=== PATIENT | male | born 1965 | race Caucasian/White ===

== ENCOUNTER 2019-03-16 13:34 | Inpatient (IN) | payer OTHER, SELFPAY ==
[2019-03-16] VITALS (7 sets, daily range): BP systolic 120–154; BP diastolic 80–92; PULSE 69–97; RESP 16–20; TEMP 36.6; O2SAT 93–96; BMI 40.6; BMI 40.4
--- NOTE | 2019-03-16 13:37 | ED_ITS ---
Entered by Joana Morales, acting as scribe for HPI - Abdominal Pain General: Chief Complaint: Abdominal Pain Stated Complaint: HALLUCINATIONS/ ABDOMINAL PAIN Time Seen by Provider: 03/16/19 13:37 Source: patient Mode of arrival: EMS Limitations: no limitations History of Present Illness: HPI narrative: 53 yo Male presents to ED with complaint of abdominal pain and hallucinations. Pt states he has been having hallucinations and nightmares and his psychologist told him to come to the ED. Pt states that he has been having hallucinations for about 2 weeks. Pt states that he has also had abdominal pains with clotted red blood in his stools for about 1 week. Pt states that he has had scopes done in the past with no diagnosis. Pt states he was diagnosed with diverticulitis about 30 years ago but during his recent scopes nothing was found. MD elicited complaint: abdominal pain Onset (ago): week(s) (2) Pain Consistency: constant Location: Diffuse Severity: severe Pain scale (0-10): 9 Quality: sharp Associated Symptoms: Reports hematochezia; Denies chills, coffee ground emesis, constipation, GI cramping, diarrhea, dysuria, fever(s), hematuria, hematemesis, melena, nausea, syncope and vomiting Review of Systems General: Reports: other (negative unless marked) Const: Denies: fever or chills Eyes: Denies: change in vision or blurry vision ENMT: Denies: throat pain, painful swallowing, hoarseness, ear pain, ear dis charge, Change in hearing or nasal discharge Card: Denies: syncope Resp: Denies: shortness of breath, productive cough, non-productive cough, wheezing, coughing up blood or chest congestion GI: Reports: abdominal pain and blood in stool; Denies: nausea, vomiting, vomiting blood, coffee grounds in vomit, diarrhea, constipation, cramping or black tarry stool : Denies: painful urination or blood in urine Musc: Denies: neck pain, back pain, extremity pain, extremity swelling, joint pain, joint swelling, joint warmth or joint stiffness Skin/Breast: Denies: rash, skin tenderness or yellow skin Neuro: Denies: headache, numbness in extremities, weakness in extremities, changes in sensation, lack of coordination, difficulty walking, dizziness, vertigo or confusion Endo: Denies: excessive thirst, tired all the time, cold intolerance, excessive sweating, flushing or hot flashes Cornelius/Lymph: Denies: easy bruising, easy bleeding, petechiae or enlarged lymph nodes All/Imm: Denies: hives, throat swelling, tongue swelling, facial swelling or acute wheezing PFSH ED PFSH: Statuses (acute, chronic, etc) shown below reflect problem list status as previously entered and may not be historically accurate Medical History (Updated 03/16/19 @ 17:00 by Anne-Marie Colmenares) Diabetes (Acute) Diastolic heart failure (Acute) Essential (primary) hypertension (Acute) Hypothyroidism (Acute) Internal hemorrhoids (Acute) Surgical History (Updated 03/16/19 @ 13:56 by Joana Morales) H/O neck surgery (Acute) S/P appendectomy (Acute) S/P cholecystectomy (Acute) S/P hernia repair (Acute) Family History (Updated 03/13/19 @ 11:36 by Daylin Selby LPN) Other CAD (coronary artery disease) Diabetes Social History (Updated 03/13/19 @ 11:21 by Daylin Selby LPN) Smoking and tobacco status: never smoked Alcohol intake: current Alcohol intake frequency: few times a week Alcohol type: beer Household members: spouse Marital status: Physical Exam Const: COMMON NORMALS: no apparent distress, oriented x3, no limitations, healthy appearing and well nourished EXAM LIMITATIONS: no altered mental status GENERAL APPEARANCE: cooperative, well kempt and well developed ORIENTATION/CONSCIOUSNESS: Yes awake HENMT: COMMON NORMALS: normocephalic, head/scalp atraumatic, hearing grossly normal bilaterally, external ears normal, EAC's normal, external nose normal and moist oral mucous membranes HEAD & SCALP: normal to inspection, normocephalic and atraumatic FACE & SINUS: normal facial exam and face symmetric NOSE: external nose normal and nares normal EXTERNAL EAR: Yes external ears normal EXTERNAL AUDITORY CANAL: EAC's normal MOUTH: oral and palatal mucosa normal and tongue normal Eye: COMMON NORMALS: PERRL, EOMs intact bilaterally, conjunctivae normal and no scleral icterus GENERAL EYE: normal appearance of both eyes and normal light reflex CONJUNCTIVA: Yes conjunctivae normal SCLERA: sclerae normal CORNEA: Yes corneas normal PUPIL: Yes PERRL DIRECT OPHTHALMOSCOPY: Yes normal light reflex Neck/C-Spine: COMMON NORMALS: full ROM, no lymphadenopathy, supple, no meningeal signs and no JVD GENERAL: Yes normal visual inspection and Yes trachea midline CERVICAL SPINE: Yes cervical ROM normal Chest: COMMONS NORMALS: inspection of chest normal and palpation of chest normal Resp: COMMON NORMALS: normal respiratory effort, no retractions, no use of accessory muscles and clear to auscultation bilaterally EFFORT & INSPECTION: Yes able to speak in complete sentences AUSCULTATION: clear to auscultation bilaterally Cardio: COMMON NORMALS: no JVD, regular rate, regular rhythm, S1 normal heart sound, S2 normal heart sound, no gallops, no clicks, no murmurs and no rub JUGULAR VENOUS DISTENTION: no JVD RATE: regular rate RHYTHM: regular rhythm HEART SOUNDS: S1 normal and S2 normal GI: COMMON NORMALS: soft to palpation, non-tender, no hepatosplenomegaly and no masses INSPECTION: Yes normal to inspection PALPATION: Yes soft and Yes no hepatosplenomegaly RECTAL EXAM: Yes visual inspection normal, Yes normal sphincter tone, Yes prostate normal and Yes heme negative stool : COMMON NORMALS: Yes no CVA tenderness BLADDER/KIDNEY EXAM: Yes no CVA tenderness Back/Pelvis: COMMON NORMALS: no CVA tenderness, thoracic and lumbar spine normal to inspection, no thoracic nor lumbar tenderness and thoraco-lumbar ROM normal Extremity: COMMON NORMALS: normal to inspection, full ROM, normal capillary refill, no joint enlargement, no clubbing, cyanosis or edema and no calf tenderness Neuro: COMMON NORMALS: oriented x3, CN's II-XII intact bilaterally, moves all extremities, no focal motor deficits and no sensory deficits noted MENINGEAL SIGNS: Yes no meningeal signs Psych: COMMON NORMALS: mental status grossly normal, thought process normal, cooperative, affect normal, speech normal and activity/motor behavior normal APPEARANCE: Yes well kempt SPEECH: Yes normal speech THOUGHT PROCESS: normal thought process Skin: COMMON NORMALS: no rashes or lesions noted, skin turgor normal, no jaundice, no petechiae and no mottling GENERAL SKIN EXAM: no rashes or lesions noted and turgor normal Procedures Intubation Mg Given: 20 Mg Given: 200 Course Vital Signs: Vital signs: Vital Signs Temperature 97.8 F 03/16/19 13:37 Pulse Rate 83 03/16/19 14:59 Respiratory Rate 16 03/16/19 16:00 Blood Pressure 140/87 03/16/19 14:59 Pulse Oximetry 96 03/16/19 13:37 MDM - Abdominal Pain MDM Narrative: Medical decision making narrative: Ben comes in complaining of hallucinations described as seeing things move on the wall and seeing things that are not there. As far as work-up for rectal bleeding everything is negative. He is not orthostatic, he is not been hypotensive. He has had no syncopal spells. He has no chest pain or shortness of breath. The patient's guaiac is negative here and his stool is normal color without any evidence of bleeding. His CT scan is unremarkable. It is possible that this is a hallucination or delusion. I reviewed the case in full with Dr. Larios she is agreeable to admit the patient for further psychiatric evaluation. He understands that the patient's complaints could be very serious as far as his rectal bleeding and he will monitor this closely and if necessary involve surgery and medicine as necessary. Lab Data: Labs: Lab Results 03/16/19 03/16/19 03/16/19 Range/Units 12:58 12:58 12:58 WBC 9.7 (4.0-10.0) 10^3/ uL RBC 5.46 H (4.1-5.3) 10^6/u L Hgb 15.4 (11.7-16.6) g/dL Hct 48.9 (42.0-52.0) % MCV 89.6 (80-94) fL MCH 28.2 (28.0-34.0) pg MCHC 31.5 (30.0-36.0) g/dL RDW 12.7 (12.1-15.1) % Plt Count 407 H (130-400) 10^3/c mm MPV 11.9 H (7.4-10.4) fL Neut % (Auto) 62.7 % Lymph % (Auto) 22.2 % [place] % (Auto) 11.0 % Eos % (Auto) 3.1 % Baso % (Auto) 0.6 % Neut # (Auto) 6.1 (1.8-7.7) 10^3/u L Lymph # (Auto) 2.2 (0.8-4.8) 10^3/u L [place] # (Auto) 1.1 H (0.2-0.9) 10^3/u L Eos # (Auto) 0.3 (0.0-0.8) 10^3/u L Baso # (Auto) 0.1 (0.0-0.1) 10^3/u L Nucleated RBC % (a uto) 0 % Nucleated RBCs # 0.0 /100WBC PT 13.20 (10.5-13.3) SECO NDS INR 0.97 (0.8-1.2) Specimen Type Sample Site ABG pH (7.35-7.45) ABG pCO2 (35-45) mmHg ABG pO2 (80.0-100.0) mmH g ABG HCO3 (22-26) mmol/L ABG Base Excess (-2.0-2.0) mmol/ L Moy Test Hematocrit (42-52) % FiO2 % Plug Grower ID Sodium 135 L (136-145) mmol/L Potassium 4.5 (3.5-5.1) mmol/L Chloride 93 L (98-107) mmol/L Carbon Dioxide 27 (22-29) mmol/L Anion Gap 19.5 H (5-19) BUN 16 (6-20) mg/dL Creatinine 1.2 (0.7-1.2) mg/dL GFR Calculation 63.3 L (90-130) mL/min Glucose 197 H (74-109) mg/dL Lactic Acid (0.5-2.2) mmol/L Calcium 10.6 H (8.6-10.0) mg/Dl Magnesium 2.2 (1.7-2.3) mg/dL Total Bilirubin 0.4 (0.15-1.2) mg/dL AST 30 (0-40) U/L ALT 39 (0-41) U/L Alkaline Phosphata se 73 (40-130) IU/L Ammonia (16-60) umol/L Total Protein 8.6 (6.6-8.7) g/dL Albumin 5.5 H (3.5-5.2) g/dL Globulin 3.1 (1.3-4.6) g/dL Ethyl Alcohol (0-10) mg/dL Blood Type Antibody Screen 03/16/19 03/16/19 03/16/19 Range/Units 12:58 13:50 13:52 WBC (4.0-10.0) 10^3/ uL RBC (4.1-5.3) 10^6/u L Hgb (11.7-16.6) g/dL Hct (42.0-52.0) % MCV (80-94) fL MCH (28.0-34.0) pg MCHC (30.0-36.0) g/dL RDW (12.1-15.1) % Plt Count (130-400) 10^3/c mm MPV (7.4-10.4) fL Neut % (Auto) % Lymph % (Auto) % [place] % (Auto) % Eos % (Auto) % Baso % (Auto) % Neut # (Auto) (1.8-7.7) 10^3/u L Lymph # (Auto) (0.8-4.8) 10^3/u L [place] # (Auto) (0.2-0.9) 10^3/u L Eos # (Auto) (0.0-0.8) 10^3/u L Baso # (Auto) (0.0-0.1) 10^3/u L Nucleated RBC % (a uto) % Nucleated RBCs # /100WBC PT (10.5-13.3) SECO NDS INR (0.8-1.2) Specimen Type Arterial Sample Site Radial, left ABG pH 7.39 (7.35-7.45) ABG pCO2 45.4 H (35-45) mmHg ABG pO2 74.8 L (80.0-100.0) mmH g ABG HCO3 27.1 H (22-26) mmol/L ABG Base Excess 1.5 (-2.0-2.0) mmol/ L Moy Test Pos Hematocrit 45.5 (42-52) % FiO2 21.0 % Plug Grower ID ed Sodium (136-145) mmol/L Potassium (3.5-5.1) mmol/L Chloride (98-107) mmol/L Carbon Dioxide (22-29) mmol/L Anion Gap (5-19) BUN (6-20) mg/dL Creatinine (0.7-1.2) mg/dL GFR Calculation (90-130) mL/min Glucose (74-109) mg/dL Lactic Acid (0.5-2.2) mmol/L Calcium (8.6-10.0) mg/Dl Magnesium (1.7-2.3) mg/dL Total Bilirubin (0.15-1.2) mg/dL AST (0-40) U/L ALT (0-41) U/L Alkaline Phosphata se (40-130) IU/L Ammonia (16-60) umol/L Total Protein (6.6-8.7) g/dL Albumin (3.5-5.2) g/dL Globulin (1.3-4.6) g/dL Ethyl Alcohol < 10 (0-10) mg/dL Blood Type O Positive Antibody Screen Negative 03/16/19 03/16/19 Range/Units 13:52 13:52 WBC (4.0-10.0) 10^3/ uL RBC (4.1-5.3) 10^6/u L Hgb (11.7-16.6) g/dL Hct (42.0-52.0) % MCV (80-94) fL MCH (28.0-34.0) pg MCHC (30.0-36.0) g/dL RDW (12.1-15.1) % Plt Count (130-400) 10^3/c mm MPV (7.4-10.4) fL Neut % (Auto) % Lymph % (Auto) % [place] % (Auto) % Eos % (Auto) % Baso % (Auto) % Neut # (Auto) (1.8-7.7) 10^3/u L Lymph # (Auto) (0.8-4.8) 10^3/u L [place] # (Auto) (0.2-0.9) 10^3/u L Eos # (Auto) (0.0-0.8) 10^3/u L Baso # (Auto) (0.0-0.1) 10^3/u L Nucleated RBC % (a uto) % Nucleated RBCs # /100WBC PT (10.5-13.3) SECO NDS INR (0.8-1.2) Specimen Type Sample Site ABG pH (7.35-7.45) ABG pCO2 (35-45) mmHg ABG pO2 (80.0-100.0) mmH g ABG HCO3 (22-26) mmol/L ABG Base Excess (-2.0-2.0) mmol/ L Moy Test Hematocrit (42-52) % FiO2 % Plug Grower ID Sodium (136-145) mmol/L Potassium (3.5-5.1) mmol/L Chloride (98-107) mmol/L Carbon Dioxide (22-29) mmol/L Anion Gap (5-19) BUN (6-20) mg/dL Creatinine (0.7-1.2) mg/dL GFR Calculation (90-130) mL/min Glucose (74-109) mg/dL Lactic Acid 2.4 H (0.5-2.2) mmol/L Calcium (8.6-10.0) mg/Dl Magnesium (1.7-2.3) mg/dL Total Bilirubin (0.15-1.2) mg/dL AST (0-40) U/L ALT (0-41) U/L Alkaline Phosphata se (40-130) IU/L Ammonia 78 H (16-60) umol/L Total Protein (6.6-8.7) g/dL Albumin (3.5-5.2) g/dL Globulin (1.3-4.6) g/dL Ethyl Alcohol (0-10) mg/dL Blood Type Antibody Screen Imaging Data ^: CXR: Radiologist's impression: [address] [address] XRay Report Signed Patient: Ben Nielsen R#: [id number] : 1965Acct:[id number] Age/Sex: 53 / MADM Date: 03/16/19 Loc: ER Attending Dr: Ordering Physician: Anne-Marie Colmenares DO Date of Service: 03/16/19 Procedure(s): XR chest 1V portable [id number] Accession Number(s): [id number] Report Number: [id number] WS: [id number] Portable AP upright chest, 03/16/2019 Clinical Data: cough Comparison: Verbal chest, 04/27/2018. Findings: No nodules, masses or effusions are seen. The heart is normal. The pulmonary vascularity is not increased. No pneumonia or pneumothorax is seen. XR/XR chest 1V portable [id number] Impression: Negative chest. Dictated By:Alison Schneider MD Signed By:Alison Schneider MDSigned Date/Time:03/16/191402 DD/ 01 CT Abd/Pel: Radiologist's impression: [facility] [address] [place] [address] CT Scan Report Signed Patient: Ben Nielsen HMR#: [id number] : 1965Acct:[id number] Age/Sex: 53 / MADM Date: 03/16/19 Loc: ER Attending Dr: Ordering Physician: Anne-Marie Colmenares DO Date of Service: 03/16/19 Procedure(s): CT abdomen pelvis w con* [id number] Accession Number(s): [id number] Report Number: [id number] WS: [id number] CT scan of the abdomen and pelvis without Oral and with IV contrast. Additional two-dimensional coronal and sagittal reconstruction was performed. 03/16/2019 Clinical Data: Abdominal Pain Comparison: CT abdomen and pelvis, 02/07/2018. DLP: 1982.[address] scans at [facility] use at least one of these dose optim ization techniques: automated exposure control; mA and/or kV adjustment per patient size (includes targeted exams where dose is matched to clinical indication); or iterative reconstruction. Findings: The lower lungs show no nodules, masses or effusions. The liver, spleen, adrenal glands and pancreas are normal. There are clips in the gallbladder fossa from a cholecystectomy. The kidneys show equal bilateral contrast excretion with no cyst or masses. The abdominal aorta is normal in size. No appendicitis or diverticulitis is seen. No abscess, adenopathy, ascites, mass, obstruction or free air is seen. The stomach, small bowel and colon are not remarkable.. The bladder is unremarkable. No inguinal hernia is seen. There is calcification in the prostate. The bones of the lower thorax, lumbar spine, pelvis, and hips show only moderate osteoarthritic change of the lower lumbar vertebral bodies.. CT/CT abdomen pelvis w con* [id number] Impression: Negative for acute intra-abdominal or pelvic abnormalities. Dictated By:Alison Schneider MD Signed By:Alison Schneiderigned Date/Time:03/16/191451 DD/ 1447 Discharge Plan Discharge Patient Disposition: Placed in Observation Clinical Impression: Hallucinations, Bright red rectal bleeding Condition: Stable Prescriptions: No Action metformin 500 mg tablet extended release 24 hr 500 mg PO DAILY RF: 0 cephalexin 500 mg capsule 500 mg PO BID RF: 0 fenofibrate nanocrystallized [Tricor] 145 mg tablet 145 mg PO DAILY RF: 0 levothyroxine 50 mcg capsule 50 mcg PO ONCE RF: 0 losartan 50 mg tablet 50 mg PO DAILY RF: 0 metoprolol tartrate 25 mg tablet 25 mg PO BID RF: 0 quetiapine 50 mg tablet 50 mg PO BEDTIME RF: 0 duloxetine 60 mg capsule,delayed release(DR/EC) 120 mg PO DAILY RF: 0 gabapentin 600 mg tablet 600 mg PO TID RF: 0 nitroglycerin [Nitrostat] 0.4 mg tablet, sublingual 0.4 mg SUBLINGUAL Q5M PRN (Reason: Chest Pain) RF: 0 aspirin 81 mg tablet,delayed release (DR/EC) 162 mg PO BEDTIME RF: 0 buspirone 10 mg tablet 10 mg PO TID RF: 0 melatonin 3 mg Tablet 3 mg PO BEDTIME RF: 0 Lyrica 150 mg Capsule 150 mg PO BID RF: 0 Referrals: Qi Muhammad DO [Primary Care Provider] - Coding Level of Care Code ED Strategic Partner Development Manager for Chg Fwd Exam Problem Focused The documentation recorded by the Andrew sequeira Carmen, accurately reflects the service I personally performed and the decisions made by Dedra soto Eli N Mar 16, 2019 13:34
--- NOTE | 2019-03-16 13:43 | XR_ITS ---
WS: [id number] Portable AP upright chest, 03/16/2019 Clinical Data: cough Comparison: Verbal chest, 04/27/2018. Findings: No nodules, masses or effusions are seen. The heart is normal. The pulmonary vascularity is not increased. No pneumonia or pneumothorax is seen. XR/XR chest 1V portable [id number] Impression: Negative chest.
--- NOTE | 2019-03-16 13:43 | CT_ITS ---
WS: [id number] CT scan of the abdomen and pelvis without Oral and with IV contrast. Additional two-dimensional claudy nal and sagittal reconstruction was performed. 03/16/2019 Clinical Data: Abdominal Pain Comparison: CT abdomen and pelvis, 02/07/2018. DLP: 1982.[address] scans at [facility] use at least one of these dose optimization techniques: automat ed exposure control; mA and/or kV adjustment per patient size (includes targeted exams where dose is matched to clinical indication); or iterative reconstruction. Findings: The lower lungs show no nodules, masses or effusions. The liver, spleen, adrenal glands and pancreas are normal. There are clips in the gallbladder fossa f rom a cholecystectomy. The kidneys show equal bilateral contrast excretion with no cyst or masses. The abdominal aorta is normal in size. No appendicitis or diverticulitis is seen. No abscess, adenopathy, ascites, mass, obstruction or free air is seen. The stomach, small bowel and colon are not remarkable.. The bladder is unremarkable. No inguinal hernia is seen. There is calcification in the prostate. The bones of the lower thorax, lumbar spine, pelvis, and hips show only moderate osteoarthritic sandhu e of the lower lumbar vertebral bodies.. CT/CT abdomen pelvis w con* [id number] Impression: Negative for acute intra-abdominal or pelvic abnormalities.
--- NOTE | 2019-03-16 13:48 | PC.NURSE ---
Patient additionally has c/o hallucinations. He states he is not hearing things or seeing things while awake, rather he states anytime he naps or sleeps he is having what he describes as nightmares. Patient states he called his psychologist and told him of the episodes and was advised to come to the ER for evaluation.
[2019-03-16 13:49] LABS: Basophils # 0.1 10^3/uL (0.0-0.1); Basophils % 0.6 %; Eosinophils # 0.3 10^3/uL (0.0-0.8); Eosinophils % 3.1 %; Hematocrit 48.9 % (42.0-52.0); Hemoglobin 15.4 g/dL (11.7-16.6); Lymphocytes # 2.2 10^3/uL (0.8-4.8); Lymphocytes % 22.2 %; Mean Corpuscular HGB Conc 31.5 g/dL (30.0-36.0); Mean Corpuscular Hemoglobin 28.2 pg (28.0-34.0); Mean Corpuscular Volume 89.6 fL (80-94); Mean Platelet Volume 11.9 fL (7.4-10.4); Monocytes # 1.1 10^3/uL (0.2-0.9); Neutrophils # 6.1 10^3/uL (1.8-7.7); Neutrophils % 62.7 %; Nucleated Red Blood Cells % 0 %; Platelet Count 407 10^3/cmm (130-400); Red Blood Count 5.46 10^6/uL (4.1-5.3); Red Cell Distribution Width 12.7 % (12.1-15.1); White Blood Count 9.7 10^3/uL (4.0-10.0)
[2019-03-16 13:58] LABS: INR 0.97 (0.8-1.2)
[2019-03-16 14:02] LABS: ABG PCO2 45.4 mmHg (35-45); ABG PH Result 7.39 (7.35-7.45); Arterial Blood Gas Hematocrit 45.5 % (42-52); Base Excess ABG 1.5 mmol/L (-2.0-2.0); Blood Gas Allen Test Pos; Blood Gas Sample Site Radial, left; Blood Gas Sample Type Arterial; HCO3 ABG 27.1 mmol/L (22-26); PO2 ABG 74.8 mmHg (80.0-100.0)
[2019-03-16] MEDS: ondansetron 2 mg/ML SDV 2 mL 4 MG IVP (14:04)
[2019-03-16 14:05] LABS: Alanine Aminotransferase 39 U/L (0-41); Alkaline Phosphatase 73 IU/L (40-130); Anion Gap 19.5 (5-19); Aspartate Amino Transferase 30 U/L (0-40); Blood Urea Nitrogen 16 mg/dL (6-20); Calcium 10.6 mg/Dl (8.6-10.0); Carbon Dioxide 27 mmol/L (22-29); Chloride 93 mmol/L (98-107); Glomerular Filtration Rate 63.3 mL/min (90-130); Glucose 197 mg/dL (74-109); Magnesium 2.2 mg/dL (1.7-2.3); Potassium 4.5 mmol/L (3.5-5.1); Sodium 135 mmol/L (136-145); Total Bilirubin 0.4 mg/dL (0.15-1.2); Total Protein 8.6 g/dL (6.6-8.7)
[2019-03-16] MEDS: morphine 4 mg/mL SDV 1 mL IVP (14:05)
[2019-03-16 14:30] LABS: Lactic Sepsis W/Reflex 2.4 mmol/L (0.5-2.2)
[2019-03-16] MEDS: iohexol 300 mg/mL 100 mL Btl IV (14:39)
[2019-03-16 14:47] LABS: Albumin Level 5.5 g/dL (3.5-5.2); Globulin 3.1 g/dL (1.3-4.6)
[2019-03-16 14:52] LABS: Ammonia 78 umol/L (16-60)
[2019-03-16 15:44] LABS: Reflex Lactate Order Y
[2019-03-16 15:49] LABS: Alcohol Level < 10 mg/dL (0-10)
[2019-03-16] MEDS: HYDROmorphone 1 mg/mL INJ 1 mL IVP (16:00)
[2019-03-16] MEDS: sodium chloride 0.9% 2,000 ML 999 ML IV (16:57)
[2019-03-17 00:30] LABS: Urine Appearance Clear (CLEAR); Urine Color Yellow (Yellow); pH Urine 5 (5-7)
[2019-03-17 00:31] LABS: Bilirubin Urine Neg (NEGATIVE); Blood Urine Neg (Negative); Glucose Urine UA Norm (Normal); Ketones Urine Negative (Negative); Leukocyte Esterase Urine Negative (Negative); Nitrate Urine Negative (Negative); Protein Urine Trace (Negative); Urobilinogen Urine Norm (Negative)
[2019-03-17 00:32] LABS: Bacteria Urine TRACE; RBC Urine 0-4 /hpf (0-2); Sperm Urine 1+; Squamous Epithelial Cell Urine 0-4 (0-5)
[2019-03-17 00:33] LABS: Add Urine Culture? No
[2019-03-17] MEDS: trazodone 50 mg Tablet PO (01:05)
--- NOTE | 2019-03-17 01:19 | PC.NURSE ---
Nurse Note: Patient laying in bed awake. Breathing equal and unlabored. States he is not able to sleep. Requested something for sleep. Trazodone 50 mg po given for sleep. Will reassess patient .
[2019-03-17 01:56] LABS: Amphetamines Screen Urine Negative (Negative); Barbiturates Screen Urine Negative (Negative); Benzodiazepines Screen Urine Negative (Negative); Cocaine Screen Urine Negative (Negative); PCP Screen Urine Negative (Negative); THC Screen Urine Negative (Negative)
[2019-03-17 06:00] VITALS: BP 166/77; PULSE 90; RESP 21; TEMP 36.6; O2SAT 94
--- NOTE | 2019-03-17 12:33 | PM.SDS ---
Short Stay Summary Providers Date of Admit/Discharge: 03/17/19 Attending Provider: Franklin Larios MD Primary Care Provider: Qi Muhammad Chief Complaint: HALLUCINATIONS/ ABDOMINAL PAIN HPI History of Present Illness Ben Nielsen is a 53 year old male who presents with a fairly convoluted story of how he got to this point. But gist of it is that he had an accident about 4 years ago. He had multiple surgeries to correct it. Along with some other psychosocial stressors he started to have depression and received treatment. He reports that around 2017 or 18 he started getting psychiatric care. He denies any inpatient hospitalizations. Patient denies any suicide attempts. He reports that there've been times as the medications have been added in taken away especially for his pain and/or the recent change with his Neurontin when the Lyrica and back medications for pain that have been given in taken away. He reportedly came here hoping to get some help with that somehow he ended up on the psychiatric unit. There were reports of hallucinations but those were fairly specific to going to sleep during this time where he has been struggling with sleep. We discussed hypnagogic hallucinations/rem intrusion as a likely culprit. He was not on a 96 hour hold. He requested to be discharged. We talked to his nurse practitioner at the [facility] and discussed the risks benefits and alternatives of allowing him to leave and she agreed that she did not feel imminent risk was present with him. Here Psychiatric history: As above. Substance abuse history: Reports he has been not smoking for about a month and a body cast shoe prior to the year was normally takes in 3 days and he has not had any tobacco since. He hasn't had alcohol for a long time and has never mess with any illegal drugs. He reports that he is never been to rehabilitation. And that he's never had a DUI. Family history: He denies any mental health or addiction issues or suicide attempts or completions in his family. Developmental history. He reports that he was a product of a normal and delivery The walk and talk about his developmental milestones on time. We will school he denied speech therapy, learning support, emotional support or special education classes. Psychosocial history: He is dullness of his parents 3 children. He reports his childhood was fine and he denied any emotional physical or sexual abuse. He graduated high school but had no additional training. He did have a [employer] certificate one point. Endorses being heterosexual and is largely simple 20 years. He then twice and once. He has 2 children 25-year-old daughter and 20-year-old daughter. Never been and doesn't endorse any religiously system. He reports his on his diabetes of her work was 12 years and he lives in a house with his . Legal history: He denies any significant legal history. Review of Systems Psych: Reports: other (This is an obese white male with adequate dress grooming and eye contact. No abnormal movements. Cooperative with exam in no acute distress. Speech was normal rate and volume. Mood described as fine affect congruent. Thought process organized. Thought content: Patient denied any suicidal or homicidal ideations, no delusions or border noted, he denied any auditory or visual sedation. Attention and concentration were intact memory was unreliable but now more formally tested. He is alert and oriented ?3. Insight and judgment are limited.) Home Meds/Allergies Home Medications and Allergies Home Medications Medication Instructions Recorded Confirmed Type aspirin 81 mg tablet,delayed 162 mg PO BEDTIME 03/13/19 03/16/19 History release cephalexin 500 mg capsule 500 mg PO BID 03/13/19 03/16/19 History duloxetine 60 mg capsule,delayed 120 mg PO DAILY cap 03/13/19 03/16/19 History release fenofibrate nanocrystallized 145 145 mg PO DAILY 03/13/19 03/16/19 History mg tablet gabapentin 600 mg tablet 600 mg PO TID 03/13/19 03/16/19 History levothyroxine 50 mcg capsule 50 mcg PO ONCE 03/13/19 03/16/19 History losartan 50 mg tablet 50 mg PO DAILY tab 03/13/19 03/16/19 History metformin 500 mg tablet,extended 500 mg PO DAILY tab 03/13/19 03/16/19 History release 24 hr metoprolol tartrate 25 mg tablet 25 mg PO BID 03/13/19 03/16/19 History nitroglycerin 0.4 mg sublingual 0.4 mg SUBLINGUAL Q5M PRN 03/13/19 03/16/19 History tablet quetiapine 50 mg tablet 50 mg PO BEDTIME tab 03/13/19 03/16/19 History buspirone 10 mg tablet 10 mg PO TID 03/16/19 03/16/19 History melatonin 3 mg PO BEDTIME 03/16/19 03/16/19 History pregabalin [Lyrica] 150 mg PO BID 03/16/19 03/16/19 History Allergies Allergy/AdvReac Type Severity Reaction Status Date / Time No Known Allergies Allergy Verified 03/16/19 13:42 PFSH Acute PFSH: Statuses (acute, chronic, etc) shown below reflect problem list status as previously entered and may not be historically accurate Medical History (Updated 03/17/19 @ 17:18 by Franklin Larios MD) Diabetes (Acute) Diastolic heart failure (Acute) Essential (primary) hypertension (Acute) Hypothyroidism (Acute) Internal hemorrhoids (Acute) Surgical History (Updated 03/16/19 @ 13:56 by Joana Morales) H/O neck surgery (Acute) S/P appendectomy (Acute) S/P cholecystectomy (Acute) S/P hernia repair (Acute) Family History (Updated 03/13/19 @ 11:36 by Daylin Selby LPN) Other CAD (coronary artery disease) Diabetes Social History (Updated 03/13/19 @ 11:21 by Daylin Selby LPN) Smoking and tobacco status: never smoked Alcohol intake: current Alcohol intake frequency: few times a week Alcohol type: beer Household members: spouse Marital status: Vitals/I&O/Wt Last Vital Signs Temp 97.9 F 03/17/19 06:00 Pulse 90 03/17/19 06:00 Resp 21 H 03/17/19 06:00 BP 166/77 03/17/19 06:00 Pulse Ox 94 03/17/19 06:00 03/16/19 03/17/19 03/17/19 22:59 06:59 14:59 Intake Total 1999 Balance 1999 Weight last 48 hrs Weight 124.284 kg Weight 124.738 kg Hospital Course Admission Diagnoses: Hallucinations and depression and medical comorbidities. Hospital Course: Ben presented to the emergency room reporting hallucinations and so he was admitted to the neuro psych unit after a thorough medical workup for rectal bleeding. He quickly acclimated to the individual, group and milieu therapies provided. Now he was not interested in participating in treatment. We consulted his outpatient treatment team given that he was not on a 96 hour hold and he was discharged fairly quickly. During the hospitalization he had routine laboratory studies which were within normal limits except for a few outliers mostly seen in this document. Additionally routine medical examination which was within normal limits and revealed no new acute processes. At the time of evaluation he was absolutely the infant denied any significant psychiatric concern that he wanted us to investigate. We discussed the hallucinations and they appear to more likely represent a sleep phenomenon. Follow-up for this was discussed with his provider. Otherwise he had no investment in treatment, was evaluated and noted to be absent lethality so he was allowed to leave against medical recommendations. SSS Data Data Completed and Pending: Completed Studies During Hospitalization Category Date Time Status CT abdomen pelvis w con* [id number] Urge nt Cat Scan 03/16/19 13:43 Completed XR chest 1V [place] ble [id number] Stat Exams 03/16/19 13:43 Completed Pending at discharge Category Date Time Status Arterial Blood Ga s W/O Coox Routine Lab 03/16/19 13:50 Results Diagnoses at Discharge Discharge Diagnosis (1) Adjustment disorder with mixed disturbance of emotions and conduct: Status: Acute Discharge Plan Discharge Patient Disposition: Home, Self-Care Condition: Stable Prescriptions: Continued metformin 500 mg tablet extended release 24 hr 500 mg PO DAILY RF: 0 cephalexin 500 mg capsule 500 mg PO BID RF: 0 fenofibrate nanocrystallized [Tricor] 145 mg tablet 145 mg PO DAILY RF: 0 levothyroxine 50 mcg capsule 50 mcg PO ONCE RF: 0 losartan 50 mg tablet 50 mg PO DAILY RF: 0 metoprolol tartrate 25 mg tablet 25 mg PO BID RF: 0 quetiapine 50 mg tablet 50 mg PO BEDTIME RF: 0 duloxetine 60 mg capsule,delayed release(DR/EC) 120 mg PO DAILY RF: 0 gabapentin 600 mg tablet 600 mg PO TID RF: 0 nitroglycerin [Nitrostat] 0.4 mg tablet, sublingual 0.4 mg SUBLINGUAL Q5M PRN (Reason: Chest Pain) RF: 0 aspirin 81 mg tablet,delayed release (DR/EC) 162 mg PO BEDTIME RF: 0 buspirone 10 mg tablet 10 mg PO TID RF: 0 melatonin 3 mg Tablet 3 mg PO BEDTIME RF: 0 Lyrica 150 mg Capsule 150 mg PO BID RF: 0 Discharge Orders: Discharge Order (Routine); Ordered 03/17/19 Ordered By: Franklin Larios Referrals: Farhat Lewis MD [Physician] - 03/18/19 1:15 am Qi Muhammad DO [Primary Care Provider] - 03/19/19 1:30 am Gerri Rivera [Staff Physician] - 04/02/19 10:00 am Discharge Diet: Regular Discharge Activity: Resume usual activity Patient Instructions: Rectal Bleeding (DC) Activity Restrictions/Additional Instructions: LEISA # Discharge Date/Time: 03/17/19 17:22 Attestations Medical Necessity Statement*: Inpatient hospitalization is not medically necessary or the clinically appropriate intervention at this time. Patient is appropriate for following up with his outpatient providers who know him better to tease out these nuances about treatment given the absence of imminent risk to himself or others. Time Spent in Patient Care*: greater than 30 min Quality Metrics Clinical Quality Measures: During this hospital stay, did patient experience: None Coding Level of Care Code Acute Residential Building Inspector for Chg Fwd Diagnoses Adjustment disorder with mixed disturbance of emotions and conduct F43.25
[2019-03-17 14:00] VITALS: BP 166/77; PULSE 90; RESP 21; TEMP 36.6; O2SAT 94
[2019-03-17 17:13] VITALS: BP 133/80; PULSE 78; RESP 21; TEMP 36.6; O2SAT 94
[2019-03-18 09:33] LABS: Oxygen Device ROOM AIR
== END 2019-03-17 17:22 | disposition home or self-care (01) | DRG 882 ==
LOC: ER 17:00 → NP 17:32
PROVIDERS: Admitting Provider Psychiatry & Neurology Psychiatry; Emergency Provider Emergency Medicine; Family Provider Family Medicine; PCP Family Medicine; Visit Provider Psychiatry & Neurology Psychiatry
DX: F43.25 Adjustment disorder with mixed disturbance of emotions and conduct (principal); Z79.82 Long term (current) use of aspirin; E11.9 Type 2 diabetes mellitus without complications; Z79.84 Long term (current) use of oral hypoglycemic drugs
CPT/HCPCS: 36415; 36600; 71045; 74177; 80053; 80307; 81001; 82140; 82803; 83605; 83735; 85025; 85610; 86850; 86900; 96374; 99283; J1170; J2270; J2405; J7030; Q9967

== ENCOUNTER → 2019-04-02 09:32 | Outpatient (BNVA) | payer OTHER, SELFPAY | PROVIDERS: Family Provider Family Medicine; PCP Family Medicine; Visit Provider Nurse Practitioner Psychiatric/Mental Health | DX: F45.1 Undifferentiated somatoform disorder (principal); F41.8 Other specified anxiety disorders; F33.1 Major depressive disorder, recurrent, moderate | CPT/HCPCS: 99204 ==

== ENCOUNTER 2019-04-07 18:53 | Observation (INO) | payer OTHER, SELFPAY ==
[2019-04-07] VITALS (8 sets, daily range): BP systolic 145–194; BP diastolic 80–108; PULSE 66–87; RESP 16–23; TEMP 36.9; O2SAT 93–98; BMI 41.5
--- NOTE | 2019-04-07 18:56 | ECG_ITS ---
Measurements Intervals [place] Rate: 78 P: 55 [place]: 153 QRS: 30 QRSD: 84 T: 61 QT: 340 QTc: 387 SINUS RHYTHM WITH SINUS ARRHYTHMIA INTERPRETATION BASED ON A DEFAULT AGE OF 40 YEARS Compared to ECG 04/27/2018 09:49:20 Sinus bradycardia no longer present Electronically Signed On 04-08-2019 18:32:34 SUPERVISOR PLEATING by Farhat Lewis M.D. [email or web address]
[2019-04-07 19:36] LABS: Basophils # 0.1 10^3/uL (0.0-0.1); Basophils % 0.7 %; Eosinophils # 0.5 10^3/uL (0.0-0.8); Eosinophils % 4.7 %; Hematocrit 40.5 % (42.0-52.0); Lymphocytes # 2.4 10^3/uL (0.8-4.8); Lymphocytes % 24.9 %; Mean Corpuscular HGB Conc 32.1 g/dL (30.0-36.0); Mean Corpuscular Hemoglobin 28.3 pg (28.0-34.0); Mean Corpuscular Volume 88.2 fL (80-94); Mean Platelet Volume 11.1 fL (7.4-10.4); Monocytes # 0.9 10^3/uL (0.2-0.9); Monocytes % 9.5 %; Neutrophils # 5.8 10^3/uL (1.8-7.7); Neutrophils % 59.9 %; Nucleated Red Blood Cells % 0 %; Platelet Count 311 10^3/cmm (130-400); Red Blood Count 4.59 10^6/uL (4.1-5.3); Red Cell Distribution Width 12.8 % (12.1-15.1); White Blood Count 9.6 10^3/uL (4.0-10.0)
[2019-04-07 19:50] LABS: Alanine Aminotransferase 36 U/L (0-41); Albumin Level 4.7 g/dL (3.5-5.2); Alkaline Phosphatase 76 IU/L (40-130); Anion Gap 16.7 (5-19); Aspartate Amino Transferase 22 U/L (0-40); Blood Urea Nitrogen 16 mg/dL (6-20); Calcium 10.3 mg/dL (8.5-10.5); Carbon Dioxide 27 mmol/L (22-29); Chloride 96 mmol/L (98-107); Globulin 3.2 g/dL (1.3-4.6); Glomerular Filtration Rate 78.2 mL/min (90-130); Glucose 161 mg/dL (74-109); Potassium 3.7 mmol/L (3.5-5.1); Sodium 136 mmol/L (136-145); Total Bilirubin 0.2 mg/dL (0.15-1.2); Total Protein 7.9 g/dL (6.6-8.7)
[2019-04-07 19:52] LABS: Troponin(5th) Baseline 15 ng/mL (0-15)
--- NOTE | 2019-04-07 20:27 | ED_ITS ---
Entered by Roopa Tiwari, acting as scribe for Anne-Marie Colmenares Zoya Apr 07, 2019 18:53 HPI - Chest Pain General: Chief Complaint: Chest Pain Stated Complaint: CP/TAKEN 2 NITROS TODAY Time Seen by Provider: 04/07/19 20:27 Source: patient Mode of arrival: ambulatory Limitations: no limitations History of Present Illness: HPI narrative: Ben is a 53-year-old male who comes in complaining of chest pain/pressure that radiates up to his left neck. He has associated dizziness which he described as room spinning dizziness. Associated shortness of breath, diaphoresis and nausea but no vomiting. His symptoms will start sporadically at times but also will be made worse by exertion. He denies any diaphoresis or other radiation of his pain other to up to his neck. His dizziness is described as room spinning made worse by movement. He denies any similar symptoms in the past. MD complaint: chest pain Associated symptoms: Reports dyspnea and nausea; Deny abdominal pain, diaphoresis, fever(s), palpitations, syncope or vomiting Review of Systems General: Reports: other (negative unless marked) Const: Denies: fever, chills, body aches, fatigue, malaise or diaphoresis Eyes: Denies: change in vision or blurry vision ENMT: Denies: throat pain, painful swallowing, hoarseness, ear pain, ear discharge, Change in hearing or nasal discharge Card: Reports: chest pain; Denies: palpitations, irregular heart rhythm, syncope, pre-syncope, shortness of breath on exertion or shortness of breath when lying down Resp: Reports: shortness of breath; Denies: productive cough, non-productive cough, wheezing, coughing up blood or chest congestion GI: Reports: nausea; Denies: abdominal pain, vomiting, vomiting blood, coffee grounds in vomit, diarrhea, constipation, cramping, blood in stool or black tarry stool : Denies: flank pain, difficulty urinating, painful urination, urinary frequency, urinary urgency, decreased urine ouput, urinary incontinence or blood in urine Musc: Denies: joint warmth Skin/Breast: Denies: rash, skin tenderness or yellow skin Neuro: Denies: headache, numbness in extremities, weakness in extremities, c hanges in sensation, lack of coordination, difficulty walking, dizziness, vertigo or confusion Endo: Denies: excessive thirst, tired all the time, cold intolerance, excessive sweating, flushing or hot flashes Cornelius/Lymph: Denies: easy bruising, easy bleeding, petechiae or enlarged lymph nodes All/Imm: Denies: acute wheezing PFSH ED PFSH: Statuses (acute, chronic, etc) shown below reflect problem list status as previously entered and may not be historically accurate Medical History Anxiety with somatic features (Acute) Chronic neck pain (Acute) Diabetes (Acute) Diastolic heart failure (Acute) Essential (primary) hypertension (Acute) History of OK (myocardial infarction) (Acute) History of TIA (transient ischemic attack) (Acute) Hypertriglyceridemia (Acute) Hypothyroidism (Acute) Internal hemorrhoids (Acute) Left ventricular hypertrophy (Acute) Major depressive disorder, recurrent, moderate (Acute) MRSA (methicillin resistant Staphylococcus aureus) (Acute) 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) Umbilical hernia (Acute) Surgical History H/O neck surgery (Acute) S/P appendectomy (Acute) S/P cholecystectomy (Acute) S/P hernia repair (Acute) Family History Other CAD (coronary artery disease) Diabetes Social History Smoking and tobacco status: never smoked Alcohol intake: current Alcohol intake frequency: few times a week Alcohol type: beer Household members: spouse Marital status: Physical Exam Const: COMMON NORMALS: no apparent distress, oriented x3, no limitations, healthy appearing and well nourished EXAM LIMITATIONS: no altered mental status GENERAL APPEARANCE: cooperative, well kempt and well developed ORIENTATION/CONSCIOUSNESS: Yes awake HENMT: COMMON NORMALS: normocephalic, head/scalp atraumatic, hearing grossly normal bilaterally, external ears normal, EAC's normal, external nose normal and moist oral mucous membranes HEAD & SCALP: normal to inspection, normocephalic and atraumatic FACE & SINUS: normal facial exam and face symmetric NOSE: external nose normal and nares normal EXTERNAL EAR: Yes external ears normal EXTERNAL AUDITORY CANAL: EAC's normal MOUTH: oral and palatal mucosa normal and tongue normal Eye: COMMON NORMALS: PERRL, EOMs intact bilaterally, conjunctivae normal and no scleral icterus GENERAL EYE: normal appearance of both eyes and normal light reflex CONJUNCTIVA: Yes conjunctivae normal SCLERA: sclerae normal CORNEA: Yes corneas normal PUPIL: Yes PERRL DIRECT OPHTHALMOSCOPY: Yes normal light reflex Neck/C-Spine: COMMON NORMALS: full ROM, no lymphadenopathy, supple, no meningeal signs and no JVD GENERAL: Yes normal visual inspection and Yes trachea midline CERVICAL SPINE: Yes cervical ROM normal Resp: COMMON NORMALS: normal respiratory effort, no retractions, no use of accessory muscles and clear to auscultation bilaterally EFFORT & INSPECTION: Yes able to speak in complete sentences AUSCULTATION: clear to auscultation bilaterally Cardio: COMMON NORMALS: no JVD, regular rate, regular rhythm, S1 normal heart sound, S2 normal heart sound, no gallops, no clicks, no murmurs and no rub JUGULAR VENOUS DISTENTION: no JVD RATE: regular rate RHYTHM: regular rhythm HEART SOUNDS: S1 normal and S2 normal GI: COMMON NORMALS: soft to palpation, non-tender, no hepatosplenomegaly and no masses INSPECTION: Yes normal to inspection PALPATION: Yes soft and Yes no hepatosplenomegaly : COMMON NORMALS: Yes no CVA tenderness BLADDER/KIDNEY EXAM: Yes no CVA tenderness Back/Pelvis: COMMON NORMALS: no CVA tenderness, thoracic and lumbar spine normal to inspection, no thoracic nor lumbar tenderness and thoraco-lumbar ROM normal Extremity: COMMON NORMALS: normal to inspection, full ROM, normal capillary refill, no joint enlargement, no clubbing, cyanosis or edema and no calf tenderness Neuro: COMMON NORMALS: oriented x3, CN's II-XII intact bilaterally, moves all extremities, no focal motor deficits and no sensory deficits noted SENSORIUM/ORIENTATION: Yes other (Mild lateral nystagmus that fatigues) MENINGEAL SIGNS: Yes no meningeal signs COORDINATION/BALANCE: izshdb-pg-[id number] test normal, ijhh-tf-[id number] test normal, does not sway with eyes open and rapid alternating mvmt upper ext normal SPEECH: speech normal GAIT: Yes normal gait COORDINATION: lianhg-ky-xzpo test normal, bcnc-vz-thmg test normal, does not sway with eyes open and rapid alternating movement UE normal Psych: COMMON NORMALS: mental status grossly normal, thought process normal, cooperative, affect normal, speech normal and activity/motor behavior normal APPEARANCE: Yes well kempt SPEECH: Yes normal speech THOUGHT PROCESS: normal thought process Skin: COMMON NORMALS: no rashes or lesions noted, skin turgor normal, no jaundice, no petechiae and no mottling GENERAL SKIN EXAM: no rashes or lesions noted and turgor normal Course Vital Signs: Vital signs: Vital Signs Temperature 98.4 F 04/07/19 19:08 Pulse Rate 76 04/08/19 03:22 Respiratory Rate 20 H 04/08/19 03:24 Blood Pressure 159/80 04/08/19 03:22 Pulse Oximetry 94 04/08/19 03:24 MDM - Chest Pain MDM Narrative: Medical decision making narrative: Patient comes in with chest pain and dizziness. I was concerned about a possible vertebral dissection causing his pain but there is no evidence of aortic or vertebral dissection on his CTs. The patient claims to have swelling but there is no evidence of this clinically and his BNP is normal. His chest x-ray is clear. I believe his symptoms could be related to acute coronary syndrome and because of his heart score being above 3 he should be admitted for cardiac rule out. I reviewed the case in full with Dr. Dennis and he is agreeable to do so. In regards to the p atient's dizziness his plain head CT is normal and his CT of his head and neck are normal. He had normal trmzkj-ti-rjrz and klxu-kk-zefr testing. I do not believe this is a cerebellar CVA. On exam he had minimal nystagmus but his dizziness did resolve with meclizine. He had a reassuring HINTS exam. Lab Data: Attestation: I reviewed the patient's lab results. Labs: Lab Results 04/07/19 04/07/19 04/07/19 Range/Units 19:29 19:29 19:29 WBC 9.6 (4.0-10.0) 10^3/ uL RBC 4.59 (4.1-5.3) 10^6/u L Hgb 13.0 (11.7-16.6) g/dL Hct 40.5 L (42.0-52.0) % MCV 88.2 (80-94) fL MCH 28.3 (28.0-34.0) pg MCHC 32.1 (30.0-36.0) g/dL RDW 12.8 (12.1-15.1) % Plt Count 311 (130-400) 10^3/c mm MPV 11.1 H (7.4-10.4) fL Neut % (Auto) 59.9 % Lymph % (Auto) 24.9 % [place] % (Auto) 9.5 % Eos % (Auto) 4.7 % Baso % (Auto) 0.7 % Neut # (Auto) 5.8 (1.8-7.7) 10^3/u L Lymph # (Auto) 2.4 (0.8-4.8) 10^3/u L [place] # (Auto) 0.9 (0.2-0.9) 10^3/u L Eos # (Auto) 0.5 (0.0-0.8) 10^3/u L Baso # (Auto) 0.1 (0.0-0.1) 10^3/u L Nucleated RBC % (a uto) 0 % Nucleated RBCs # 0.0 /100WBC Sodium 136 (136-145) mmol/L Potassium 3.7 (3.5-5.1) mmol/L Chloride 96 L (98-107) mmol/L Carbon Dioxide 27 (22-29) mmol/L Anion Gap 16.7 (5-19) BUN 16 (6-20) mg/dL Creatinine 1.0 (0.7-1.2) mg/dL GFR Calculation 78.2 L (90-130) mL/min Glucose 161 H (74-109) mg/dL Calcium 10.3 (8.5-10.5) mg/dL Total Bilirubin 0.2 (0.15-1.2) mg/dL AST 22 (0-40) U/L ALT 36 (0-41) U/L Alkaline Phosphata se 76 (40-130) IU/L Troponin I 6 Hour (0-15) ng/L Troponin I Hi Sens Del (0-12) ng/L Troponin T Baselin e 15 (0-15) ng/mL Troponin T 120 Min [place] (0-15) ng/mL Delta Troponin T (0-10) ABS# NT-Pro-B Natriuret Pep (0-125) pg/mL Total Protein 7.9 (6.6-8.7) g/dL Albumin 4.7 (3.5-5.2) g/dL Globulin 3.2 (1.3-4.6) g/dL TSH (0.27-4.20) uIU/ mL Urine Color (Yellow) Urine Appearance (CLEAR) Urine pH (5-7) Ur Specific Gravit y (1.005-1.030) Urine Protein (Negative) Urine Glucose (UA) (Normal) Urine Ketones (Negative) Urine Occult Blood (Negative) Urine Nitrate (Negative) Urine Bilirubin (NEGATIVE) Urine Urobilinogen (Negative) mg/dL Ur Leukocyte Camille ase (Negative) 04/07/19 04/07/19 04/07/19 Range/Units 21:26 21:26 22:45 WBC (4.0-10.0) 10^3/ uL RBC (4.1-5.3) 10^6/u L Hgb (11.7-16.6) g/dL Hct (42.0-52.0) % MCV (80-94) fL MCH (28.0-34.0) pg MCHC (30.0-36.0) g/dL RDW (12.1-15.1) % Plt Count (130-400) 10^3/c mm MPV (7.4-10.4) fL Neut % (Auto) % Lymph % (Auto) % [place] % (Auto) % Eos % (Auto) % Baso % (Auto) % Neut # (Auto) (1.8-7.7) 10^3/u L Lymph # (Auto) (0.8-4.8) 10^3/u L [place] # (Auto) (0.2-0.9) 10^3/u L Eos # (Auto) (0.0-0.8) 10^3/u L Baso # (Auto) (0.0-0.1) 10^3/u L Nucleated RBC % (a uto) % Nucleated RBCs # /100WBC Sodium (136-145) mmol/L Potassium (3.5-5.1) mmol/L Chloride (98-107) mmol/L Carbon Dioxide (22-29) mmol/L Anion Gap (5-19) BUN (6-20) mg/dL Creatinine (0.7-1.2) mg/dL GFR Calculation (90-130) mL/min Glucose (74-109) mg/dL Calcium (8.5-10.5) mg/dL Total Bilirubin (0.15-1.2) mg/dL AST (0-40) U/L ALT (0-41) U/L Alkaline Phosphata se (40-130) IU/L Troponin I 6 Hour (0-15) ng/L Troponin I Hi Sens Del (0-12) ng/L Troponin T Baselin e (0-15) ng/mL Troponin T 120 Min [place] 13.91 (0-15) ng/mL Delta Troponin T -1.09 L (0-10) ABS# NT-Pro-B Natriuret Pep 93 (0-125) pg/mL Total Protein (6.6-8.7) g/dL Albumin (3.5-5.2) g/dL Globulin (1.3-4.6) g/dL TSH (0.27-4.20) uIU/ mL Urine Color Yellow (Yellow) Urine Appearance Clear (CLEAR) Urine pH 5 (5-7) Ur Specific Gravit y 1.020 (1.005-1.030) Urine Protein Neg (Negative) Urine Glucose (UA) Norm (Normal) Urine Ketones Negative (Negative) Urine Occult Blood Neg (Negative) Urine Nitrate Negative (Negative) Urine Bilirubin Neg (NEGATIVE) Urine Urobilinogen Norm (Negative) mg/dL Ur Leukocyte Camille ase Negative (Negative) 04/08/19 04/08/19 Range/Units 00:28 00:28 WBC (4.0-10.0) 10^3/ uL RBC (4.1-5.3) 10^6/u L Hgb (11.7-16.6) g/dL Hct (42.0-52.0) % MCV (80-94) fL MCH (28.0-34.0) pg MCHC (30.0-36.0) g/dL RDW (12.1-15.1) % Plt Count (130-400) 10^3/c mm MPV (7.4-10.4) fL Neut % (Auto) % Lymph % (Auto) % [place] % (Auto) % Eos % (Auto) % Baso % (Auto) % Neut # (Auto) (1.8-7.7) 10^3/u L Lymph # (Auto) (0.8-4.8) 10^3/u L [place] # (Auto) (0.2-0.9) 10^3/u L Eos # (Auto) (0.0-0.8) 10^3/u L Baso # (Auto) (0.0-0.1) 10^3/u L Nucleated RBC % (a uto) % Nucleated RBCs # /100WBC Sodium (136-145) mmol/L Potassium (3.5-5.1) mmol/L Chloride (98-107) mmol/L Carbon Dioxide (22-29) mmol/L Anion Gap (5-19) BUN (6-20) mg/dL Creatinine (0.7-1.2) mg/dL GFR Calculation (90-130) mL/min Glucose (74-109) mg/dL Calcium (8.5-10.5) mg/dL Total Bilirubin (0.15-1.2) mg/dL AST (0-40) U/L ALT (0-41) U/L Alkaline Phosphata se (40-130) IU/L Troponin I 6 Hour 12.37 (0-15) ng/L Troponin I Hi Sens Del -2.63 L (0-12) ng/L Troponin T Baselin e (0-15) ng/mL Troponin T 120 Min [place] (0-15) ng/mL Delta Troponin T (0-10) ABS# NT-Pro-B Natriuret Pep 100 (0-125) pg/mL Total Protein (6.6-8.7) g/dL Albumin (3.5-5.2) g/dL Globulin (1.3-4.6) g/dL TSH 10.66 H (0.27-4.20) uIU/ mL Urine Color (Yellow) Urine Appearance (CLEAR) Urine pH (5-7) Ur Specific Gravit y (1.005-1.030) Urine Protein (Negative) Urine Glucose (UA) (Normal) Urine Ketones (Negative) Urine Occult Blood (Negative) Urine Nitrate (Negative) Urine Bilirubin (NEGATIVE) Urine Urobilinogen (Negative) mg/dL Ur Leukocyte Camille ase (Negative) Imaging Data^: CXR: My impression: No acute cardiopulmonary disease Discharge Plan Discharge Patient Disposition: Placed in Observation Admit Provider: Farhat Dennis Clinical Impression: Dizziness Chest pain Qualifiers: Chest pain type: unspecified Qualified Code(s): R07.9 - Chest pain, unspecified Condition: Stable Interventions: ED Discharge Assessment Last Done: 04/08/19 01:55 Discharge Date/Time: 04/08/19 01:57 Coding Level of Care Code ED Scarifier Operator for Chg Fwd Exam Problem Focused The documentation recorded by the [place] Stephanie Lyn, accurately reflects the service I personally performed and the decisions made by , Anne-Marie Colmenares Apr 07, 2019 18:53
--- NOTE | 2019-04-07 20:44 | CTR_ITS ---
PROCEDURE INFORMATION: Exam: CT Head Without Contrast Exam date and time: 04/07/2019 8:49 PM Age: 53 years old Clinical indication: Pain; Dizziness; Headache; Additional info: Hightower/ams TECHNIQUE: Imaging protocol: Computed tomography of the head without contrast. Total DLP: 897.44 mGy-cm Radiation optimization: All CT scans at this facility use at least one of these dose optimization techniques: automated exposure control; mA and/or kV adjustment per patient size (includes targeted exams where dose is matched to clinical indication); or iterative reconstruction. COMPARISON: CT head wo con* [id number] 04/27/2018 9:35 AM FINDINGS: Brain: Normal. No hemorrhage. Unremarkable white matter. No mass effect. Ventricles: Normal. No ventriculomegaly. Bones/joints: Unremarkable. No acute fracture. Sinuses: Mild sphenoid and left frontal sinusitis is noted. Mastoid air cells: Visualized mastoid air cells are well aerated. Soft tissues: Unremarkable. CT/CT head wo con* [id number] IMPRESSION: No acute intracranial abnormality. Mild sinusitis. Radiation Dose CTDIVOL = (mGy): DLP = 897.44 (mGy-cm)
[2019-04-07] MEDS: meclizine 25 mg tablet PO (20:50)
[2019-04-07] MEDS: nitroglycerin 0.4 mg sublingual Tablet SUBLINGUAL ×3 (20:50→21:26)
[2019-04-07] MEDS: aspirin 81 mg Chew Tablet 324 MG PO (20:50)
--- NOTE | 2019-04-07 20:56 | ECG_ITS ---
Measurements Intervals [place] Rate: 70 P: 23 MS: 165 QRS: 34 QRSD: 84 T: 52 QT: 355 QTc: 385 SINUS RHYTHM Compared to ECG 04/27/2018 09:49:20 Sinus bradycardia no longer present Electronically Signed On 04-08-2019 18:35:52 PLANER TAILER by Farhat Lewis M.D. [id number]
[2019-04-07 21:49] LABS: Troponin 5 2HR 13.91 ng/mL (0-15)
[2019-04-07 21:56] LABS: Troponin 5 2HR Delta -1.09 ABS# (0-10)
[2019-04-07] MEDS: ondansetron 2 mg/ML SDV 2 mL 4 MG IVP (22:03)
[2019-04-07] MEDS: morphine 4 mg/mL SDV 1 mL 6 MG IVP (22:03)
--- NOTE | 2019-04-07 22:14 | XR_ITS ---
WS: [id number] CHEST XRAY TECHNIQUE: Portable chest. CLINICAL INFORMATION: cough COMPARISON: FINDINGS: Heart: Cardiomegaly. Lungs: No acute pulmonary infiltrates. No focal pneumonia. Bones: Normal visualized bony structures. XR/XR chest 1V portable [id number] IMPRESSION: No acute chest findings
--- NOTE | 2019-04-07 22:21 | CTR_ITS ---
PROCEDURE INFORMATION: Exam: CT Angiography Head With Contrast Exam date and time: 04/07/2019 11:44 PM Age: 53 years old Clinical indication: Dizziness and giddiness; Other: Chest pain radiating to neck; Prior surgery; Surgery date: 6+ months; Additional info: Neck pain, dizziness TECHNIQUE: Imaging protocol: Computed tomography angiography of the head with intravenous contrast. 3D rendering: MIP and/or 3D reconstructed images were created by the technologist. Total DLP: 2702.25 mGy-cm Radiation optimization: All CT scans at this facility use at least one of these dose optimization techniques: automated exposure control; mA and/or kV adjustment per patient size (includes targeted exams where dose is matched to clinical indication); or iterative reconstruction. Contrast material: VISI; Contrast volume: 95 ml; Contrast route: 20G; COMPARISON: CTA Head/Neck [id number] 04/27/2018 10:59 AM FINDINGS: Right internal carotid artery: Mild calcified plaque deposition. Intracranial segment is patent with no significant stenosis. No aneurysm. Right anterior cerebral artery: Unremarkable. No occlusion or significant stenosis. No aneurysm. Right middle cerebral artery: Unremarkable. No occlusion or significant stenosis. No aneurysm. Right posterior cerebral artery: Unremarkable. No occlusion or significant stenosis. No aneurysm. Right vertebral artery: Unremarkable. No occlusion or significant stenosis. No aneurysm. Left internal carotid artery: Mild calcified plaque deposition. Intracranial segment is patent with no significant stenosis. No aneurysm. Left anterior cerebral artery: Unremarkable. No occlusion or significant stenosis. No aneurysm. Left middle cerebral artery: Unremarkable. No occlusion or significant stenosis. No aneurysm. Left posterior cerebral artery: Unremarkable. No occlusion or significant stenosis. No aneurysm. Left vertebral artery: Unremarkable. No occlusion or significant stenosis. No aneurysm. Basilar artery: Unremarkable. No occlusion or significant stenosis. No aneurysm. IMPRESSION: Patent intracranial arteries. PROCEDURE INFORMATION: Exam: CT Angiography Neck With Contrast Exam date and time: 04/07/2019 11:44 PM Age: 53 years old Clinical indication: Dizziness and giddiness; Other: Chest pain radiating to neck; Prior surgery; Surgery date: 6+ months; Additional info: Neck pain, dizziness TECHNIQUE: Imaging protocol: Computed tomography angiography of the neck with intravenous contrast. 3D rendering: MIP and/or 3D reconstructed images were created by the technologist. Total DLP: 2702.25 mGy-cm Radiation optimization: All CT scans at this facility use at least one of these dose optimization techniques: automated exposure control; mA and/or kV adjustment per patient size (includes targeted exams where dose is matched to clinical indication); or iterative reconstruction. Contrast material: VISI; Contrast volume: 95 ml; Contrast route: 20G; COMPARISON: CTA Head/Neck [id number] 04/27/2018 10:59 AM FINDINGS: VASCULATURE: Right common carotid artery: Unremarkable. No stenosis. No dissection or occlusion. Right internal carotid artery: Unremarkable extracranial segment. No stenosis. No dissection or occlusion. Right external carotid artery: Unremarkable. No occlusion or stenosis of the origin. Right vertebral artery: Unremarkable. No stenosis. No dissection or occlusion. Left common carotid artery: Unremarkable. No stenosis. No dissection or occlusion. Left internal carotid artery: Mild stenosis of the left ICA origin is noted. Left external carotid artery: Unremarkable. No occlusion or stenosis of the origin. Left vertebral artery: Unremarkable. No stenosis. No dissection or occlusion. NECK: Bones/joints: C3-C6 laminectomy and spinal fusion changes are appreciated. No acute fracture. Soft tissues: Normal. No significant soft tissue swelling. CT/CT angio headneck* [id number] IMPRESSION: Mild stenosis of the left ICA origin. COMMENT: Reference per NASCET criteria for degree of stenosis: Mild: less than 50% stenosis. Moderate: 50-69% stenosis. Severe: 70-94% stenosis. Near occlusion: 95-99% stenosis. Radiation Dose CTDIVOL = (mGy): DLP = 2702.25~2702.25 (mGy-cm)
--- NOTE | 2019-04-07 22:21 | CTR_ITS ---
PROCEDURE INFORMATION: Exam: CT Angiography Chest With Contrast Exam date and time: 04/07/2019 11:44 PM Age: 53 years old Clinical indication: Chest pain; Type not specified; Prior surgery; Surgery date: 6+ months; Surgery type: Gb, neck; Additional info: Pain/sob TECHNIQUE: Imaging protocol: Computed tomographic angiography of the chest with intravenous contrast. 3D rendering: MIP and/or 3D reconstructed images were created by the technologist. Total DLP: 629.99 mGy-cm Radiation optimization: All CT scans at this facility use at least one of these dose optimization techniques: automated exposure control; mA and/or kV adjustment per patient size (includes targeted exams where dose is matched to clinical indication); or iterative reconstruction. Contrast material: VISI; Contrast volume: 82.6 ml; Contrast route: 20G; COMPARISON: CR XR chest 1V portable [id number] 04/07/2019 10:20 PM FINDINGS: Pulmonary arteries: Normal. No pulmonary emboli. Aorta: Unremarkable. No aortic aneurysm. No aortic dissection. Lungs: A calcified granuloma is present in the left lower lobe. Pleural space: Unremarkable. No pneumothorax. No pleural effusion. Heart: Unremarkable. No cardiomegaly. No pericardial effusion. Gallbladder and bile ducts: The gallbladder has been removed. No biliary ductal dilatation. Lymph nodes: Unremarkable. No enlarged lymph nodes. Bones/joints: Unremarkable. No acute fracture. Soft tissues: Unremarkable. CT/CT angio chest PE protcl [id number] IMPRESSION: No pulmonary embolus or acute pulmonary pathology. Radiation Dose CTDIVOL = (mGy): DLP = 629.99 (mGy-cm)
[2019-04-07 22:46] LABS: NT Pro B Type Natriuretic Pept 93 pg/mL (0-125)
[2019-04-07] MEDS: sodium chloride 0.9% 1,000 ML 999 ML IV (22:59)
[2019-04-07 23:01] LABS: Add Urine Microscopic? NO
[2019-04-07 23:10] LABS: Urine Appearance Clear (CLEAR); Urine Color Yellow (Yellow)
[2019-04-07 23:11] LABS: Bilirubin Urine Neg (NEGATIVE); Blood Urine Neg (Negative); Glucose Urine UA Norm (Normal); Ketones Urine Negative (Negative); Leukocyte Esterase Urine Negative (Negative); Nitrate Urine Negative (Negative); Protein Urine Neg (Negative); Urobilinogen Urine Norm (Negative); pH Urine 5 (5-7)
--- NOTE | 2019-04-07 23:52 | PC.NURSE ---
Patient transported to CT with computer service technician
[2019-04-08] VITALS (15 sets, daily range): BP systolic 153–181; BP diastolic 72–96; PULSE 68–87; RESP 15–21; TEMP 36.7; O2SAT 92–98; BMI 42.0
[2019-04-08] MEDS: iodixanol 320 mg/mL 100mL Btl IV ×2 (00:18→00:19)
[2019-04-08] MEDS: sodium chloride 0.9% 1,000 ML 999 ML IV (00:34)
[2019-04-08] MEDS: morphine 4 mg/mL SDV 1 mL IVP ×4 (00:34→16:33)
[2019-04-08 00:53] LABS: Troponin 5 6HR 12.37 ng/L (0-15)
--- NOTE | 2019-04-08 00:56 | ECG_ITS ---
Measurements Intervals [place] Rate: 70 P: 23 OR: 165 QRS: 34 QRSD: 84 T: 52 QT: 355 QTc: 385 SINUS RHYTHM Compared to ECG 04/27/2018 09:49:20 Sinus bradycardia no longer present Electronically Signed On 04-08-2019 18:35:55 BASTER HAND by Farhat Lewis M.D. [id number]
[2019-04-08 01:11] LABS: Troponin 5 6HR Delta -2.63 ng/L (0-12)
--- NOTE | 2019-04-08 01:21 | PM.HP ---
Providers/Chief Complaint Primary Care Provider: Qi Muhammad DO Chief Complaint: CP/TAKEN 2 NITROS TODAY History of Present Illness Ben Nielsen is a 53 year old male who carries diagnosis of stable coronary disease without any history of stent or CABG, TIA, dyslipidemia, hypertension, hypothyroidism, diabetes came in with chief complaint of chest pain. Patient is stating that his symptoms started around 6 AM when his left for a job. He started experiencing pressure-like sensation substernally, at that time he was not able to breathe properly, he experienced orthopnea and PND, he also noticed that his face was getting red and he noticed swelling of his arms and face at that time he took 2 pills of nitroglycerin which helped relieve his symptoms. Chest pain subsided after that but started appearing again at the time when his returned from job. He decided to come to ED for further evaluation because he is worried that he has strong family history his brother had stents and AZ who is 3 years younger and his mother has heart failure. He also noticed that he is dizzy he did not experience any falls but on changing position in bed he was feeling very dizzy and he noticed some twitching of his eyes. Diagnostics in ER showed hypertension, normal EKG, normal troponin, normal blood work, he was given meclizine which relieved his symptoms, he had nystagmus on change of head position, CTA head and neck unremarkable for any vascular stroke, EKG did not show any ischemic changes. Patient is stating that for last couple of years he has been taking antibiotic cephalosporins he never experienced any facial edema or redness, he has not taken any lisinopril recently no change in medications recently, no recent traveling, no food allergy. No stridor, dysphagia or choking on food. He has noticed that he has gained 10 pounds and he does not eat much. Review of Systems Const: Denies: fever or chills Eyes: Denies: change in vision or blurry vision ENMT: Denies: throat pain Card: Reports: chest pain, palpitations, lightheadedness, shortness of breath on exertion and shortness of breath when lying down; Denies: irregular heart rhythm Resp: Reports: shortness of breath; Denies: productive cough or non-productive cough GI: Denies: abdominal pain, nausea or vomiting : Denies: flank pain or difficulty urinating Musc: Reports: neck pain and back pain Skin/Breast: Reports: rash and redness Neuro: Reports: dizziness and vertigo; Denies: headache, numbness in extremities, weakness in extremities, changes in sensation or difficulty walking Psych: Reports: anxiety Endo: Reports: excessive urination Cornelius/Lymph: Denies: easy bruising All/Imm: Denies: hives Medications/Allergies Allergies Allergy/AdvReac Type Severity Reaction Status Date / Time pineapple Allergy Unknown Unknown Verified 04/08/19 00:15 PFSH Acute PFSH: Statuses (acute, chronic, etc) shown below reflect problem list status as previously entered and may not be historically accurate Medical History Anxiety with somatic features (Acute) Chronic neck pain (Acute) Diabetes (Acute) Diastolic heart failure (Acute) Essential (primary) hypertension (Acute) History of AZ (myocardial infarction) (Acute) History of TIA (transient ischemic attack) (Acute) Hypertriglyceridemia (Acute) Hypothyroidism (Acute) Internal hemorrhoids (Acute) Left ventricular hypertrophy (Acute) Major depressive disorder, recurrent, moderate (Acute) MRSA (methicillin resistant Staphylococcus aureus) (Acute) 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) Umbilical hernia (Acute) Surgical History H/O neck surgery (Acute) S/P appendectomy (Acute) S/P cholecystectomy (Acute) S/P hernia repair (Acute) Family History Other CAD (coronary artery disease) Diabetes Social History Smoking and tobacco status: never smoked Alcohol intake: current Alcohol intake frequency: few times a week Alcohol type: beer Household members: spouse Marital status: Supplemental PFSH Information: Procedure Summary #1 Left main is normal #2 LAD has luminal irregularities #3 LCx is normal #4 RCA is dominant artery which is normal #5 LVEDP is elevated 22 mmHg Vitals/I&O/Wt Last Vital Signs Temp 98.4 F 04/07/19 19:08 Pulse 66 04/07/19 23:59 Resp 16 04/08/19 00:34 BP 145/80 04/07/19 23:59 Pulse Ox 97 04/07/19 23:59 Weight last 48 hrs Weight 127.686 kg Physical Exam Narrative: EXAM NARRATIVE: Morbidly obese male lying comfortable in his bed Normal hemodynamics on the monitor, heart rate 70, normal sinus rhythm, blood pressure 150/96, Patient saturating well on room air Patient has hyperemic facial appearance which is blanchable No stridor, facial plethora positive, mild cushingoid appearance S1, S2 no signs of heart failure murmur no JVD Abdomen soft, obese obesity, bloated, bowel sound present, nontender Neurological nonfocal exam Mood appears anxious Skin shows facial hyperemia without any ischemia gangrene or ulcer Lower extremity no signs of edema Lungs are clear to auscultation Data : 04/07/19 19:29 04/07/19 19:29 A&P Assessment and plan (1) Unstable angina: Status: Acute Code(s): I20.0 - Unstable angina (2) Anxiety with somatic features: Status: Acute Code(s): F41.8 - Other specified anxiety disorders (3) Major depressive disorder, recurrent, moderate: Status: Acute Code(s): F33.1 - Major depressive disorder, recurrent, moderate (4) Chronic neck pain: Status: Acute Code(s): M54.2 - Cervicalgia; G89.29 - Other chronic pain Additional A&P Information Unstable angina Substernal chest pain, heavy pressure-like sensation, relieved with nitro, lasted greater than 20 minutes, it was radiating versus left jaw and arm and shoulder Currently troponins negative, EKG does not show any signs of ischemia, he is chest pain-free, normal hemodynamics, Strong family history of coronary disease and AZ He has multiple risk factors obesity, age, dyslipidemia, diabetes We will order stress test Lexiscan in the morning Please note he had normal coronary anatomy in 2016 via coronary angiogram done by Dr. Junior Facial plethora with edema and weight gain I would recheck his TSH level Continue levothyroxine dose If that is normal he might need work-up for Lavonne's disease with low-dose dexamethasone test Patient is stating that he has not taken any new medication recently no food allergy, he takes losartan, Dizziness due to BPPV Would add meclizine [place]-Hallpike maneuver positive PT in a.m. Dyslipidemia: Patient is taking fenofibrate he is not on statins We will check lipid panel I will check metabolic panel A1c, lipid profile and TSH History of somatization due to anxiety: Continue home regimen DVT prophylaxis: Lovenox Full code Attestations Medical Necessity Statement*: Might be discharged in 48 hours in the hospital for rule out of cardiac etiology for chest pain, needs stress test Time Spent in Patient Care: 50 Coding Level of Care Code Acute Proposition Player for Emy Fwd Diagnoses Unstable angina I20.0 Anxiety with somatic features F41.8 Major depressive disorder, recurrent, moderate F33.1 Chronic neck pain M54.2; G89.29
[2019-04-08 02:21] LABS: NT Pro B Type Natriuretic Pept 100 pg/mL (0-125); Thyroid Stimulating Hormone 10.66 uIU/mL (0.27-4.20)
--- NOTE | 2019-04-08 02:29 | NMCV_ITS ---
NM souleymane perf SPECT r/s* [id number] Ben Nielsen Age: 53 Gender: M : 1965 Exam Date: 04/08/2019 07:17 Ordering Phys: Farhat Dennis MD Technologist: LEXIE Humphrey Exam Location: [facility] Indications: Chest pain STRESS TEST Please see separate stress test report in [facility] for full findings IMAGE PROTOCOL Rest/Stress 1 Lexiscan Day Radiopharmaceutical Dose (mCi) Administration Site Administered by Rest: Tc-99m 10.9 IV LEXIE Humphrey Sestamibi Stress:Tc-99m 33.0 IV LEXIE Humphrey Sestamibi Rest: 08-Apr-2019 60 Discovery 630 Stress: 08-Apr-2019 45 Discovery 630 0.4mg Lexiscan. Supine position only as patient was unable to lay prone. SPECT RESULTS Technical Quality: Excellent Raw Data Analysis: Normal Image Corrections: No attenuation or motion correction applied Summed Stress Score: 0 Summed Rest Score: 0 Summed Difference Score: 0 PERFUSION FINDINGS Small area of fixed perfusion defect noted in basal to mid anterior wall on both rest and stress images. This could represent old myocardial infarction versus artifact since patient is not able to perform the prone images. This study is negative for ischemia. FUNCTIONAL RESULTS (calculated via Gated SPECT) Stress Image LV EF (%): 64 Stress EDV (mL):133 TID: 1.09 Stress ESV (mL):48 Rest Image LV EF (%): 64 FUNCTIONAL FINDINGS: There is normal left ventricular systolic function. IMPRESSIONS Small area of fixed perfusion defect noted in basal to mid anterior wall on both rest and stress images which could represent old myocardial infarction versus artifact. Patient was not able to perform the prone images therefore cannot rule out artifact. There is no wall motion abnormality. This study is negative for ischemia Farhat Lewis MD (Electronically Signed) Final Date: 08 April 2019 10:18 S
--- NOTE | 2019-04-08 02:45 | PC.NURSE ---
Admitted from ED with complaint of Chest Pain and Neck Pain. I've had multiple surgeries on my neck along with 2 steel rods in my back from an old work injury in 2016.....the reason I cam in is because I have gained 10 to 11 pounds in like 2 weeks....my family all has a history of Congestive Heart Failure and I'd rather be safe than sorry......my feet are swollen and I became short of breath. Assessment completed. Orientation to room given with patient voicing understanding. States, I know I can't have anything to eat but I sure am thirsty....I would like some water please along with something for pain....I'm starting to hurt again with all the moving around and stuff. This nurse explained to patient that staff would have to wait on pharmacy to also verify medication before I could give the meds to him. Patient voices understanding. Well, think I'll watch television....I don't have one at home because I can't afford a television....this will be a luxury. Will continue to monitor.
[2019-04-08 03:12] LABS: Anion Gap 17.1 (5-19); Blood Urea Nitrogen 13 mg/dL (6-20); Carbon Dioxide 25 mmol/L (22-29); Chloride 99 mmol/L (98-107); Chol HDL Ratio 6.42 mg/dL (1.0-5.00); Cholesterol 244 mg/dL (0-200); Glomerular Filtration Rate 78.2 mL/min (90-130); Glucose 136 mg/dL (74-109); HDL Cholesterol 38 mg/dL (60-100); Osmolality Calculated 282 mOsm/kg (285-295); Potassium 4.1 mmol/L (3.5-5.1); Sodium 137 mmol/L (136-145); Triglycerides 531 mg/dL (0-150); VLDL Cholestrol Calculation 106 mg/dL (0-30)
[2019-04-08] MEDS: enoxaparin 40 mg/0.4 mL Syringe SUBCUT (03:24)
[2019-04-08] MEDS: sodium chloride 0.9% 1,000 ML 100 ML IV (03:27)
[2019-04-08 03:30] LABS: Basophils # 0.1 10^3/uL (0.0-0.1); Basophils % 0.5 %; Eosinophils # 0.5 10^3/uL (0.0-0.8); Eosinophils % 5.3 %; Hematocrit 38.4 % (42.0-52.0); Hemoglobin 12.2 g/dL (11.7-16.6); Lymphocytes # 2.9 10^3/uL (0.8-4.8); Lymphocytes % 29.6 %; Mean Corpuscular HGB Conc 31.8 g/dL (30.0-36.0); Mean Corpuscular Hemoglobin 28.2 pg (28.0-34.0); Mean Corpuscular Volume 88.9 fL (80-94); Mean Platelet Volume 11.4 fL (7.4-10.4); Monocytes # 0.9 10^3/uL (0.2-0.9); Monocytes % 9.4 %; Neutrophils # 5.3 10^3/uL (1.8-7.7); Neutrophils % 54.8 %; Nucleated Red Blood Cells % 0 %; Platelet Count 276 10^3/cmm (130-400); Red Blood Count 4.32 10^6/uL (4.1-5.3); Red Cell Distribution Width 12.8 % (12.1-15.1); White Blood Count 9.7 10^3/uL (4.0-10.0)
[2019-04-08] MEDS: pantoprazole DR 40 mg Tablet PO (04:53)
[2019-04-08 05:48] LABS: LDL Cholesterol Direct 124 mg/dL (0-100)
--- NOTE | 2019-04-08 06:14 | PC.NURSE ---
Patient complaining of pain once again. States, The morphine just took the edge off a little bit....I use to take Dilaudid 16mg PO every 2 to 4 hours for pain so the morphine doesn't last long for me.....my body stays at a 7. Dr. Dennis notified of patient's complaint of pain. Unable to repeat Morphine until 723. Awaiting order.
--- NOTE | 2019-04-08 06:24 | PC.NURSE ---
This nurse went into patient's room to explain about the pain medication and that I was awaiting orders from physician. Patient voices understanding. Will monitor.
--- NOTE | 2019-04-08 06:34 | ECG_ITS ---
No Symptoms Reported; Lung unchanged pre/post procedure NOTE: Please note that this is the electrocardiogram portion of the Lexiscan/Sestamibi stress test. The perfusion scan will be documented separately. DATA: Baseline heart rate was 73 beats per minute. Baseline blood pressure was 154/84 millimeters of mercury. Target heart rate was 167. Maximum heart rate achieved was 104. which was 62 % of the predicted target heart rate. Maximum blood pressure was 154/84 millimeters of mercury. The reason for ending the test was completion of the protocol. The patient did not experience any symptoms. ELECTROCARDIOGRAM: BASELINE: Sinus rhythm. Normal axis. Old anterior wall myocardial infarction EXERCISE: After Lexiscan injection, no ST-T changes suggestive of ischemic noted. No arrhythmia noted. CONCLUSION: Please note due to baseline abnormality of the EKG specificity and sensitivity of the EKG portion of LexiScan MIBI stress test will be low 1. EKG not suggestive of ischemia 2. Lexiscan injection unremarkable. 3. Perfusion scan will be documented separately. Electronically Signed On 04-08-2019 18:22:43 RELIEF SALESPERSON by Farhat Lewis M.D. [id number]
[2019-04-08 06:42] LABS: Glucose Point of Care 114 mg/dL (70-110)
[2019-04-08] MEDS: regadenoson 0.4 Mg/5 ml Syringe IVP (08:08)
--- NOTE | 2019-04-08 08:24 | PC.NURSE ---
PATIENT HELD IN CDL UNTIL 2ND NUC MED SCANS
[2019-04-08] MEDS: losartan 50 mg Tablet PO (09:26)
[2019-04-08] MEDS: fenofibrate 145 mg Tablet PO (09:26)
[2019-04-08] MEDS: levothyroxine 50 mcg Tablet PO (09:26)
--- NOTE | 2019-04-08 09:29 | PC.NURSE ---
Patient back from stress test with complaints of feeling very full, he reports he had a few drinks of water and a soft drink. Patients abd is tight soft and mild tenderness noted. vital signs stable. Dr albrecht notified of patient reports no new orders given
--- NOTE | 2019-04-08 10:30 | CT_ITS ---
WS: [id number] CT ABDOMEN PELVIS TECHNIQUE: Noncontrast CT of the abdomen and pelvis with coronal and sagittal reformatted images. CLINICAL INFORMATION: abdominal pain COMPARISON: 1 6020 DLP: 1945.[address] scans at [facility] use at least one of these dose optimization techniques: automat ed exposure control; mA and/or kV adjustment per patient size (includes targeted exams where dose is matched to clinical indication); or iterative reconstruction. FINDINGS: Diffuse fatty infiltration of the liver. Cholecystectomy. Normal spleen. Normal gastroesophageal junc tion. Bibasilar atelectasis. Normal noncontrast pancreas. Adrenal glands are normal. Noncontrast sple en is normal. Residual contrast in the renal collecting systems. No hydronephrosis. Contrast within t he bladder. Shotty periaortic lymph nodes. Prostate calcification. Normal sigmoid colon. No evidence of small or large bowel obstruction. Incide ntal fat-containing umbilical hernia. CT/CT abdomen pelvis [facility] [id number] IMPRESSION: 1. No acute abdominal or pelvic findings.
--- NOTE | 2019-04-08 10:47 | PC.CHAP ---
Pastoral Care Encounter/Spiritual Assessment Type of Contact [] Declined epic willow specialist visit [] Patient/Family/Request visit [] Outpatient visit [] Follow-up visit [] Physician referral [] Code/Alert [x] Routine visit [] Staff referral [] Actively dying [] Patient sleeping [] Family support [] [] Out of room [] Palliative care [] [] Receiving care in room [] Pre-surgical visit [] Trauma [] Long length of stay [] ICU visit [] Other: Relational/Emotional Strength [] Patient feels connected with others/family/visitors/staff [] Distress [] Loneliness/isolation [] Abandonment Spirituality of Patient [x] Person of Janna [] Attends Caodaism of their Janna [x] Believes in Prayer [x] Reads Bible or Gnosticism materials [] There are Spiritual issues to be addressed Wash Driller Interventions [x] Prayer [] Active listening [] Non-anxious presence [] Spiritual/emotional support [] Crisis/trauma care [] Spiritual counseling [] Bereavement support [] Provided bereavement packet [] Provided Bible/devotional materials [] Provided toy/stuffed animal, coloring book to patient or family member [x] Completed spiritual assessment [] Provided Communion [] Anointing/[place] [] Salvation [] Other: Impact on Illness or Injury [] Angry [] Fearful [] Anxious [] Often cries [] Exhaustion [x] Unable to work [] Unable to attend synagogue [] Unable to walk/stand [] Unable to read [] Unable to drive [] Unable to eat/drink [] Unable to sleep [] Unable to be with family [] Other: Summary Patient had discomfort from past energies. Patient requires pain medication. Patient seems stressful from personal issues with attorneys, and closure of past work related problems. Time spent with patient 20 min
[2019-04-08 11:08] LABS: Cortisol Random 0.79 mcg/dL (2.47-19.5)
[2019-04-08 11:28] LABS: Glucose Point of Care 116 mg/dL (70-110)
[2019-04-08 13:14] LABS: Alveolar-Arterial Oxygen Gradi 24.7 mmHg (5-10); Arterial Blood Gas Hematocrit 40.1 % (42-52); Blood Gas Allen Test Pos; Blood Gas Sample Site Radial, left; Blood Gas Sample Type Arterial; HGB O2 Sat 89.5 % (95-100); Methemoglobin 0.6 % (0.4-1.5); Oxygen Device ROOM AIR; Total Hemoglobin 13.1 g/dL (14-18)
--- NOTE | 2019-04-08 15:18 | PM.DCS ---
Discharge Providers Date of Admission: 04/08/19 01:22 Date of Discharge: 04/08/19 Attending Provider at Admission: Farhat Dennis MD Attending Provider at Discharge: Parker Jones MD Primary Care Provider: Qi Muhammad DO Diagnoses at Discharge Discharge Diagnosis (1) Unstable angina: Status: Acute (2) Anxiety with somatic features: Status: Acute (3) Major depressive disorder, recurrent, moderate: Status: Acute (4) Chronic neck pain: Status: Acute Reason for Visit Reason for Visit: Reason For Visit: CP/TAKEN 2 NITROS TODAY Hospital Course Discharge Summary: 58-year-old male with past medical history of hypertension, hypothyroidism, hyperlipidemia, stable coronary disease with strong family history of CAD presented to the ER on April 07 complaining of chest heaviness which persisted even after taking 2 nitros. Patient states that he has been gaining weight for the last 1 month even though he is trying to eat healthier. Patient was kept n.p.o. overnight and underwent a stress test on April 08 which was negative for any ischemia but showed a possible old infarct. Patient stated that he has been gaining weight and has more of central obesity which is making him difficult to lie down flat. Due to her symptoms TSH was checked which was elevated but free T4 came back normal, random cortisol level was checked as well which was borderline low. Patient's stated that they have been using propane gas center at home which has not been working fine so ABG was done to rule out carbon monoxide poisoning. Given the borderline low random cortisol level patient is asked to follow-up with an vulcan crewmember in [place] to rule out Lavonne's disease. CT abdomen was also done which was negative for any acute processes. Physical Exam Narrative: EXAM NARRATIVE: Morbidly obese male lying comfortable in his bed Normal hemodynamics on the monitor, heart rate 70, normal sinus rhythm, blood pressure 150/96, Patient saturating well on room air Patient has hyperemic facial appearance which is blanchable No stridor, facial plethora positive, mild cushingoid appearance S1, S2 no signs of heart failure murmur no JVD Abdomen soft, obese obesity, bloated, bowel sound present, nontender Neurological nonfocal exam Mood appears anxious Skin shows facial hyperemia without any ischemia gangrene or ulcer Lower extremity no signs of edema Lungs are clear to auscultation Discharge Data Data Completed and Pending: Completed Studies During Hospitalization Category Date Time Status CT abdomen pelvis wo con [id number] Rout ine Cat Scan 04/08/19 10:[address] angio chest PE protcl [id number] Urge nt Cat Scan 04/07/19 22:[address] angio headneck * [id number] Urge nt Cat Scan 04/07/19 22:[address] head wo con* 7 [id number] Urgent Cat Scan 04/07/19 20:44 Completed XR chest 1V lisbet ble [id number] Stat Exams 04/07/19 22:14 Completed NM souleymane perf SPECT r/s* [id number] Routin e Nuc Med 04/08/19 02:29 Completed Pending at discharge Category Date Time Status Cardiac Stress Te st MIBI [Sestamibi Stress Test Reque st Exams 04/08/19 06:34 Ordered ] Routine Labs from last 24 hours 04/08/19 04/08/19 04/08/19 13:05 11:16 06:24 WBC RBC Hgb Hct MCV MCH MCHC RDW Plt Count MPV Neut % (Auto) Lymph % (Auto) [place] % (Auto) Eos % (Auto) Baso % (Auto) Neut # (Auto) Lymph # (Auto) [place] # (Auto) Eos # (Auto) Baso # (Auto) Nucleated RBC % (a uto) Nucleated RBCs # Specimen Type Arterial Sample Site Radial, left Moy Test Pos A-a O2 Gradient 24.7 H Hematocrit 40.1 L Hgb O2 Saturation 89.5 L Carboxyhemoglobin 1.0 Methemoglobin 0.6 Total Hemoglobin 13.1 L O2 Delivery Device Room air FiO2 21.0 Deflash And Wash Operator ID [id number] Sodium Potassium Chloride Carbon Dioxide Anion Gap BUN Creatinine GFR Calculation Glucose POC Glucose 116 114 Calculated Osmolal ity Calcium Total Bilirubin AST ALT Alkaline Phosphata se Troponin I 6 Hour Troponin I Hi Sens Del Troponin T Baselin e Troponin T 120 Min [place] Troponin T NT-Pro-B Natriuret Pep Total Protein Albumin Globulin Triglycerides Cholesterol LDL Cholesterol Di rect Total VLDL Cholest [place] HDL Cholesterol Cholesterol/HDL [place] TSH Free T4 Random Cortisol Urine Color Urine Appearance Urine pH Ur Specific Gravit y Urine Protein Urine Glucose (UA) Urine Ketones Urine Occult Blood Urine Nitrate Urine Bilirubin Urine Urobilinogen Ur Leukocyte Camille ase 04/08/19 04/08/19 04/08/19 02:40 02:40 02:40 WBC RBC Hgb Hct MCV MCH MCHC RDW Plt Count MPV Neut % (Auto) Lymph % (Auto) [place] % (Auto) Eos % (Auto) Baso % (Auto) Neut # (Auto) Lymph # (Auto) [place] # (Auto) Eos # (Auto) Baso # (Auto) Nucleated RBC % (a uto) Nucleated RBCs # Specimen Type Sample Site Moy Test A-a O2 Gradient Hematocrit Hgb O2 Saturation Carboxyhemoglobin Methemoglobin Total Hemoglobin O2 Delivery Device FiO2 Deflash And Wash Operator ID Sodium 137 Potassium 4.1 Chloride 99 Carbon Dioxide 25 Anion Gap 17.1 BUN 13 Creatinine 1.0 GFR Calculation 78.2 L Glucose 136 H POC Glucose Calculated Osmolal ity 282 L Calcium 9.0 Total Bilirubin AST ALT Alkaline Phosphata se Troponin I 6 Hour Troponin I Hi Sens Del Troponin T Baselin e Troponin T 120 Min [place] Troponin T NT-Pro-B Natriuret Pep Total Protein Albumin Globulin Triglycerides 531 H Cholesterol 244 H LDL Cholesterol Di rect 124 H Total VLDL Cholest lore[place] 106 H HDL Cholesterol 38 L Cholesterol/HDL Ra be[place] 6.42 H TSH Free T4 1.00 Random Cortisol 0.79 L Urine Color Urine Appearance Urine pH Ur Specific Gravit y Urine Protein Urine Glucose (UA) Urine Ketones Urine Occult Blood Urine Nitrate Urine Bilirubin Urine Urobilinogen Ur Leukocyte Camille ase 04/08/19 04/08/19 04/08/19 02:40 00:28 00:28 WBC 9.7 RBC 4.32 Hgb 12.2 Hct 38.4 L MCV 88.9 MCH 28.2 MCHC 31.8 RDW 12.8 Plt Count 276 MPV 11.4 H Neut % (Auto) 54.8 Lymph % (Auto) 29.6 [place] % (Auto) 9.4 Eos % (Auto) 5.3 Baso % (Auto) 0.5 Neut # (Auto) 5.3 Lymph # (Auto) 2.9 [place] # (Auto) 0.9 Eos # (Auto) 0.5 Baso # (Auto) 0.1 Nucleated RBC % (a uto) 0 Nucleated RBCs # 0.0 Specimen Type Sample Site Moy Test A-a O2 Gradient Hematocrit Hgb O2 Saturation Carboxyhemoglobin Methemoglobin Total Hemoglobin O2 Delivery Device FiO2 Deflash And Wash Operator ID Sodium Potassium Chloride Carbon Dioxide Anion Gap BUN Creatinine GFR Calculation Glucose POC Glucose Calculated Osmolal ity Calcium Total Bilirubin AST ALT Alkaline Phosphata se Troponin I 6 Hour 12.37 Troponin I Hi Sens Del -2.63 L Troponin T Baselin e Troponin T 120 Min [place] Troponin T NT-Pro-B Natriuret Pep 100 Total Protein Albumin Globulin Triglycerides Cholesterol LDL Cholesterol Di rect Total VLDL Cholest [place]ore[place] HDL Cholesterol Cholesterol/HDL [place] TSH 10.66 H Free T4 Random Cortisol Urine Color Urine Appearance Urine pH Ur Specific Gravit y Urine Protein Urine Glucose (UA) Urine Ketones Urine Occult Blood Urine Nitrate Urine Bilirubin Urine Urobilinogen Ur Leukocyte Camille ase 04/07/19 04/07/19 04/07/19 22:45 21:26 21:26 WBC RBC Hgb Hct MCV MCH MCHC RDW Plt Count MPV Neut % (Auto) Lymph % (Auto) [place] % (Auto) Eos % (Auto) Baso % (Auto) Neut # (Auto) Lymph # (Auto) [place] # (Auto) Eos # (Auto) Baso # (Auto) Nucleated RBC % (a uto) Nucleated RBCs # Specimen Type Sample Site Moy Test A-a O2 Gradient Hematocrit Hgb O2 Saturation Carboxyhemoglobin Methemoglobin Total Hemoglobin O2 Delivery Device FiO2 Deflash And Wash Operator ID Sodium Potassium Chloride Carbon Dioxide Anion Gap BUN Creatinine GFR Calculation Glucose POC Glucose Calculated Osmolal ity Calcium Total Bilirubin AST ALT Alkaline Phosphata se Troponin I 6 Hour Troponin I Hi Sens Del Troponin T Baselin e Troponin T 120 Min [place] 13.91 [place] Troponin T -1.09 L NT-Pro-B Natriuret Pep 93 Total Protein Albumin Globulin Triglycerides Cholesterol LDL Cholesterol Di rect Total VLDL Cholest [place] HDL Cholesterol Cholesterol/HDL [place] TSH Free T4 Random Cortisol Urine Color Yellow Urine Appearance Clear Urine pH 5 Ur Specific Gravit y 1.020 Urine Protein Neg Urine Glucose (UA) Norm Urine Ketones Negative Urine Occult Blood Neg Urine Nitrate Negative Urine Bilirubin Neg Urine Urobilinogen Norm Ur Leukocyte Camille ase Negative 04/07/19 04/07/19 04/07/19 19:29 19:29 19:29 WBC 9.6 RBC 4.59 Hgb 13.0 Hct 40.5 L MCV 88.2 MCH 28.3 MCHC 32.1 RDW 12.8 Plt Count 311 MPV 11.1 H Neut % (Auto) 59.9 Lymph % (Auto) 24.9 [place] % (Auto) 9.5 Eos % (Auto) 4.7 Baso % (Auto) 0.7 Neut # (Auto) 5.8 Lymph # (Auto) 2.4 [place] # (Auto) 0.9 Eos # (Auto) 0.5 Baso # (Auto) 0.1 Nucleated RBC % (a uto) 0 Nucleated RBCs # 0.0 Specimen Type Sample Site Moy Test A-a O2 Gradient Hematocrit Hgb O2 Saturation Carboxyhemoglobin Methemoglobin Total Hemoglobin O2 Delivery Device FiO2 Deflash And Wash Operator ID Sodium 136 Potassium 3.7 Chloride 96 L Carbon Dioxide 27 Anion Gap 16.7 BUN 16 Creatinine 1.0 GFR Calculation 78.2 L Glucose 161 H POC Glucose Calculated Osmolal ity Calcium 10.3 Total Bilirubin 0.2 AST 22 ALT 36 Alkaline Phosphata se 76 Troponin I 6 Hour Troponin I Hi Sens Del Troponin T Baselin e 15 Troponin T 120 Min [place] Troponin T NT-Pro-B Natriuret Pep Total Protein 7.9 Albumin 4.7 Globulin 3.2 Triglycerides Cholesterol LDL Cholesterol Di rect Total VLDL Cholest [place]ore[place] HDL Cholesterol Cholesterol/HDL [place] TSH Free T4 Random Cortisol Urine Color Urine Appearance Urine pH Ur Specific Gravit y Urine Protein Urine Glucose (UA) Urine Ketones Urine Occult Blood Urine Nitrate Urine Bilirubin Urine Urobilinogen Ur Leukocyte Camille ase Vitals: Last Vital Signs Temp 98.0 F 04/08/19 08:00 Pulse 72 04/08/19 11:17 Resp 16 04/08/19 11:17 BP 157/95 04/08/19 11:17 Pulse Ox 98 04/08/19 11:17 Discharge Plan Discharge Patient Disposition: Home, Self-Care Condition: Stable Prescriptions: New levothyroxine 50 mcg Tablet 50 mcg PO DAILY Qty: 30 RF: 0 Continued metformin 500 mg tablet extended release 24 hr 500 mg PO DAILY RF: 0 cephalexin 500 mg capsule 500 mg PO BID RF: 0 losartan 50 mg tablet 50 mg PO DAILY RF: 0 metoprolol tartrate 25 mg tablet 25 mg PO BID RF: 0 nitroglycerin [Nitrostat] 0.4 mg tablet, sublingual 0.4 mg SUBLINGUAL Q5M PRN (Reason: Chest Pain) RF: 0 aspirin 81 mg tablet,delayed release (DR/EC) 162 mg PO BEDTIME RF: 0 melatonin 3 mg tablet 3 mg PO BEDTIME PRN (Reason: sleep) Qty: 30 RF: 3 omeprazole 20 mg capsule,delayed release(DR/EC) 20 mg PO ONCE Qty: 30 RF: 0 fenofibrate nanocrystallized [Tricor] 145 mg tablet 145 mg PO DAILY Qty: 30 RF: 2 quetiapine [Seroquel] 50 mg tablet 50 mg PO .bedtime Qty: 30 RF: 3 gabapentin 800 mg tablet 800 mg PO TID Qty: 90 RF: 0 Discontinued levothyroxine 50 mcg capsule 50 mcg PO ONCE RF: 0 Discharge Orders: Discharge Order (Routine); Ordered 04/08/19 Ordered By: Parker Jones Referrals: Qi Muhammad DO [Primary Care Provider] - 2 weeks Discharge Diet: Cardiac Discharge Activity: Resume usual activity Activity Restrictions/Additional Instructions: Follow-up with vulcan crewmember at [place] [facility] at [facility] or [facility]. Follow-up with your doctor within next 2 weeks to work-up for possible Lavonne's disease. Discharge Attestations Time Spent in Discharge Care*: greater than 30 min Quality Metrics Clinical Quality Measures During this hospital stay, did patient experience: None Coding Level of Care Code Acute Associate [employer] for [employer] Diagnoses Unstable angina I20.0 Anxiety with somatic features F41.8 Major depressive disorder, recurrent, moderate F33.1 Chronic neck pain M54.2; G89.29
== END 2019-04-08 16:55 | disposition home or self-care (01) ==
LOC: ER 04-08 01:31 → CSU 04-08 01:45
PROVIDERS: Emergency Medicine; Admitting Provider Internal Medicine; Emergency Provider Emergency Medicine; Family Provider Family Medicine; PCP Family Medicine; Visit Provider Student in an Organized Health Care Education/Training Program
DX: I25.110 Atherosclerotic heart disease of native coronary artery with unstable angina pectoris (principal); E11.9 Type 2 diabetes mellitus without complications; I11.0 Hypertensive heart disease with heart failure; I50.30 Unspecified diastolic (congestive) heart failure; I25.2 Old myocardial infarction; Z86.73 Personal history of transient ischemic attack (TIA), and cerebral infarction without residual deficits; E03.9 Hypothyroidism, unspecified; F33.9 Major depressive disorder, recurrent, unspecified; Z86.14 Personal history of Methicillin resistant Staphylococcus aureus infection; E78.5 Hyperlipidemia, unspecified; Z79.84 Long term (current) use of oral hypoglycemic drugs
CPT/HCPCS: 12345; 36415; 36416; 36600; 70450; 70496; 70498; 71045; 71275; 74176; 78452; 80048; 80053; 80061; 81003; 82533; 82810; 82962; 83721; 83880; 84439; 84443; 84484; 85025; 93005; 93017; 96361; 96372; 96374; 96375; 97112; 97161; 99283; 99285; A9500; G0378; J1650; J2270; J2405; J2785; J7030; J8597; Q9967

== ENCOUNTER → 2019-05-01 08:28 | Outpatient (BNVA) | payer OTHER, SELFPAY | PROVIDERS: Family Provider Family Medicine; PCP Family Medicine; Visit Provider Anesthesiology Pain Medicine | DX: G89.29 Other chronic pain (principal); M54.16 Radiculopathy, lumbar region; M96.1 Postlaminectomy syndrome, not elsewhere classified; M54.12 Radiculopathy, cervical region; Z79.891 Long term (current) use of opiate analgesic | CPT/HCPCS: 99204; 99999 ==

== ENCOUNTER → 2019-05-08 11:46 | Outpatient (BNVA) | payer OTHER, SELFPAY | PROVIDERS: Family Provider Family Medicine; PCP Family Medicine; Visit Provider Family Medicine | DX: R60.0 Localized edema (principal) | CPT/HCPCS: 80048 ==

== ENCOUNTER → 2019-05-25 10:16 | Outpatient (BNVA) | payer OTHER, SELFPAY | PROVIDERS: Family Provider Family Medicine; PCP Family Medicine; Visit Provider Nurse Practitioner Psychiatric/Mental Health | DX: F45.1 Undifferentiated somatoform disorder (principal); F41.8 Other specified anxiety disorders; F33.1 Major depressive disorder, recurrent, moderate | CPT/HCPCS: 99214 ==

== ENCOUNTER → 2019-05-29 09:49 | Outpatient (BNVA) | payer OTHER, SELFPAY | PROVIDERS: Family Provider Family Medicine; PCP Family Medicine; Visit Provider Anesthesiology Pain Medicine | DX: G89.29 Other chronic pain (principal); M54.16 Radiculopathy, lumbar region; M25.551 Pain in right hip; M54.12 Radiculopathy, cervical region; M96.1 Postlaminectomy syndrome, not elsewhere classified; Z79.891 Long term (current) use of opiate analgesic | CPT/HCPCS: 99213; 99214 ==

== ENCOUNTER → 2019-07-24 09:19 | Outpatient (BNVA) | payer SELFPAY | PROVIDERS: Family Provider Family Medicine; PCP Family Medicine; Visit Provider Anesthesiology Pain Medicine | DX: G89.29 Other chronic pain (principal); M25.551 Pain in right hip; M47.22 Other spondylosis with radiculopathy, cervical region; M54.9 Dorsalgia, unspecified; M96.1 Postlaminectomy syndrome, not elsewhere classified; Z79.891 Long term (current) use of opiate analgesic | CPT/HCPCS: 99213; 99214 ==

== ENCOUNTER → 2019-08-12 13:02 | Outpatient (BNVA) | payer SELFPAY | PROVIDERS: Family Provider Family Medicine; PCP Family Medicine; Visit Provider Anesthesiology Pain Medicine | DX: G89.29 Other chronic pain (principal); M54.16 Radiculopathy, lumbar region | CPT/HCPCS: 64483; 64484; J1040; J2001; J3490 ==

== ENCOUNTER → 2019-08-26 13:14 | Outpatient (BNVA) | payer SELFPAY | PROVIDERS: Family Provider Family Medicine; PCP Family Medicine; Visit Provider Anesthesiology Pain Medicine | DX: G89.29 Other chronic pain (principal); M54.5 Low back pain; M54.9 Dorsalgia, unspecified; M47.22 Other spondylosis with radiculopathy, cervical region; M96.1 Postlaminectomy syndrome, not elsewhere classified | CPT/HCPCS: 64483; 64484; 99213; J1040; J2001; J3490 ==

== ENCOUNTER 2019-08-31 20:00 | Outpatient (CLI) | payer OTHER, SELFPAY | END 2019-08-31 20:01 | disposition home or self-care (01) | LOC: SLEEP 09-01 09:31 | PROVIDERS: Family Provider Family Medicine; PCP Family Medicine; Visit Provider Internal Medicine Cardiovascular Disease | DX: G47.10 Hypersomnia, unspecified (principal); R06.02 Shortness of breath; G47.33 Obstructive sleep apnea (adult) (pediatric) | CPT/HCPCS: 95810 ==

== ENCOUNTER 2019-09-01 06:44 | Outpatient (CLI) | payer OTHER, SELFPAY ==
--- NOTE | 2019-09-01 14:33 | PFTS_ITS ---
Date of Study:09/01/19 Date of Dictation: MECHANICS: Forced vital capacity (FVC) is reduced. Forced expiratory volume in one second (FEV1) is reduced. FEV1/FVC is normal. FLOW VOLUME LOOP: Narrow with mild scooping. LUNG VOLUMES: Total lung capacity (TLC) is reduced. Residual volume (RV) is normal. DIFFUSING CAPACITY FOR CARBON MONOXIDE: Mildly reduced. INTERPRETATION: The pulmonary function tests are consistent with moderate restriction. There is no significant postbronchodilator response. Total lung capacity is reduced. Gas exchange (DLCO) is mildly reduced.. MTDD
== END 2019-09-01 06:45 | disposition home or self-care (01) ==
PROVIDERS: Family Provider Family Medicine; PCP Family Medicine; Visit Provider Internal Medicine Critical Care Medicine
DX: R06.02 Shortness of breath (principal)
CPT/HCPCS: 94060; 94726; 94729; J7611

== ENCOUNTER 2019-09-01 13:36 | Emergency (ER) | payer SELFPAY ==
[2019-09-01 13:41] VITALS: BMI 38.1
[2019-09-01 13:46] VITALS: BP 159/77; PULSE 70; RESP 20; TEMP 36.7; O2SAT 95
--- NOTE | 2019-09-01 13:47 | XR_ITS ---
WS: [id number] PORTABLE CHEST HISTORY: chest pain COMPARISON: 04/07/2019 Slight elevation of the RIGHT hemidiaphragm. Increase opacification developing at the RIGHT lung base new since the prior study. Otherwise lungs are clear. No pleural effusion or pneumothorax. Cardiac size: Normal. Mediastinum/Aorta: Normal mediastinum. No osseous abnormality seen. XR/XR chest 1V portable [id number] IMPRESSION: Mild pneumonitis at the RIGHT lung base.
--- NOTE | 2019-09-01 13:48 | ECG_ITS ---
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 Measurements Intervals Index Rate: 61 P: 50 KS: 154 QRS: 39 QRSD: 87 T: 53 QT: 393 QTc: 396 Interpretive Statements SINUS RHYTHM POSSIBLE LEFT ATRIAL ENLARGEMENT [-0.1mV P WAVE IN V1/V2] Compared to ECG 04/07/2019 20:37:40 No significant changes Electronically Signed On 09-01-2019 23:43:46 CDT by Tony Reyes M.D. [email or web address]
[2019-09-01] MEDS: aspirin 81 mg Chew Tablet 324 MG PO (14:00)
[2019-09-01 14:03] LABS: Basophils # 0.1 10^3/uL (0.0-0.1); Basophils % 0.6 %; Eosinophils # 0.2 10^3/uL (0.0-0.8); Eosinophils % 1.6 %; Hematocrit 40.1 % (42.0-52.0); Hemoglobin 12.8 g/dL (11.7-16.6); Lymphocytes % 16.4 %; Mean Corpuscular HGB Conc 31.9 g/dL (30.0-36.0); Mean Corpuscular Hemoglobin 28.4 pg (28.0-34.0); Mean Corpuscular Volume 88.9 fL (80-94); Monocytes % 8.2 %; Neutrophils # 8.9 10^3/uL (1.8-7.7); Neutrophils % 72.9 %; Nucleated Red Blood Cells % 0 %; Platelet Count 351 10^3/cmm (130-400); Red Blood Count 4.51 10^6/uL (4.1-5.3); Red Cell Distribution Width 13.7 % (12.1-15.1); White Blood Count 12.2 10^3/uL (4.0-10.0)
[2019-09-01 14:22] LABS: Alanine Aminotransferase 24 U/L (0-41); Albumin Level 4.6 g/dL (3.5-5.2); Alkaline Phosphatase 58 IU/L (40-130); Aspartate Amino Transferase 20 U/L (0-40); Blood Urea Nitrogen 26 mg/dL (6-20); Calcium 9.5 mg/dL (8.5-10.5); Carbon Dioxide 28 mmol/L (22-29); Chloride 94 mmol/L (98-107); Creatinine Clr Calc Pharmacy 78.5453; Globulin 2.6 g/dL (1.3-4.6); Glomerular Filtration Rate 52.8 mL/min (90-130); Glucose 173 mg/dL (65-115); Osmolality Calculated 281 mOsm/kg (285-295); Sodium 135 mmol/L (136-145); Total Bilirubin 0.2 mg/dL (0.15-1.2); Total Protein 7.2 g/dL (6.6-8.7)
[2019-09-01 14:24] LABS: Troponin(5th) Baseline 11 ng/L (0-15)
[2019-09-01 14:25] LABS: Glucose Point of Care 170 mg/dL (70-110)
--- NOTE | 2019-09-01 14:34 | ED_ITS ---
HPI - Chest Pain General: Chief Complaint: Chest Pain Stated Complaint: cp Time Seen by Provider: 09/01/19 13:47 History of Present Illness: HPI narrative: 54 yo male with compliaints of chest discomfort. He states he has had intermittent chest discomfort for some time now he has multiple nitro per day he took 2 today with no relief. He had a stress test he tells me a couple months ago here at [facility] did not result in a catheterization he says they told him it was normal he has some diastolic failure. I was called to the room because he had begun to sweat profusely was complaining of increased chest discomfort this began at rest as did the episode of chest pain that precipitated the ER visit at home. He has complained of orthopnea and PND as well. Chest pain radiates to the left arm and neck. MD complaint: chest pain Pertinent past history: other (CHF) Onset (ago): hour(s) Timing of current episode: episodic and increasing Prior episodes: Yes Onset: during rest Pain location: substernal and left chest Pain radiation: left shoulder Quality: tightness and heaviness Relieving factors: nothing Exacerbating factors: nothing Associated symptoms: Reports no associated symptoms; Deny abdominal pain, dyspnea, fever(s), nausea or vomiting Treatment prior to arrival: nitroglycerin Review of Systems Const: Denies: fever(s), chills, body aches, change in appetite, fatigue or malaise ENMT: Denies: throat pain, ear or mastoid pain, nasal discharge or nasal congestion Card: Denies: chest pain, edema, dyspnea on exertion or orthopnea Resp: Denies: dyspnea, productive cough or non-productive cough GI: Denies: abdominal pain, nausea, vomiting, hematemesis, coffee ground emesis, diarrhea, constipation, bloating, hematochezia or melena : Denies: flank pain, dysuria, urinary frequency or urinary urgency Skin/Breast: Denies: rash or pruritus PFSH ED PFSH: Medical History Anxiety with somatic features Chronic low back pain Chronic neck pain Diabetes Diastolic heart failure Essential (primary) hypertension History of IA (myocardial infarction) History of TIA (transient ischemic attack) Hypertriglyceridemia Hypothyroidism Internal hemorrhoids Left ventricular hypertrophy Major depressive disorder, recurrent, moderate MRSA (methicillin resistant Staphylococcus aureus) Pain management contract signed Persistent moderate somatic symptom disorder with predominant pain Umbilical hernia Surgical History H/O neck surgery S/P appendectomy S/P cholecystectomy S/P hernia repair Family History Mother CHF (congestive heart failure) Thyroid disease Sister Thyroid disease Father A-fib Brother Heart disease HX STENTS Other CAD (coronary artery disease) Diabetes Social History Smoking and tobacco status: former smoker Quit status (tobacco): has quit using tobacco Year quit tobacco: 2018 - 1.5 PPD x 17 Years Former quit date comment: Now uses smokelss tobacco Alcohol intake: current Alcohol intake frequency: few times a month Alcohol type: beer Lives independently: Yes Household members: spouse Marital status: Current occupational status: disabled History of recent travel: No Current gender identity: Male Physical Exam Const: COMMON NORMALS: no acute distress GENERAL APPEARANCE: cooperative and comfortable ORIENTATION/CONSCIOUSNESS: Yes awake, Yes oriented to person, Yes oriented to place and Yes oriented to time HENMT: COMMON NORMALS: normocephalic, atraumatic, hearing grossly normal bilaterally, external ears normal, EAC's normal, TM's normal bilaterally, Normal nasal mucous membranes and turbinates present, moist oral mucous membranes and oropharynx normal HEAD & SCALP: normocephalic and atraumatic NOSE: Normal nasal mucous membranes and turbinates present EXTERNAL EAR: Yes external ears normal EXTERNAL AUDITORY CANAL: EAC's normal TYMPANIC MEMBRANE: TM's normal bilaterally Eye: COMMON NORMALS: Equal, round and reactive pupils present, EOMs intact bilaterally, conjunctivae normal and no scleral icterus CONJUNCTIVA: Yes conjunctivae normal PUPIL: Yes Equal, round and reactive pupils present Neck/C-Spine: COMMON NORMALS: full ROM, no lymphadenopathy, supple and no JVD Lymph: LYMPHATIC: no lymphadenopathy noted and no lymphedema noted Resp: COMMON NORMALS: normal respiratory effort, No retractions, No use of accessory muscles and clear to auscultation bilaterally AUSCULTATION: clear to auscultation bilaterally Cardio: COMMON NORMALS: no JVD, regular rate, regular rhythm and No murmurs present (Cardio) RATE: regular rate RHYTHM: regular rhythm GI: COMMON NORMALS: Soft to palpation and No hepatosplenomegaly present AUSCULTATION: Yes normoactive bowel sounds PALPATION: Yes Soft to palpation, No Tenderness to palpation present (GI), No Guarding due to palpation present (GI) and Yes No hepatosplenomegaly present Extremity: COMMON NORMALS: normal to inspection, capillary refill normal, no clubbing, cyanosis or edema, no calf tenderness and no pedal edema Neuro: SENSORIUM/ORIENTATION: Yes oriented to person, Yes oriented to place and Yes oriented to time Skin: COMMON NORMALS: no rashes or lesions noted GENERAL SKIN EXAM: no rashes or lesions noted Course Vital Signs: Vital signs: Vital Signs Temperature 98.1 F 09/01/19 13:46 Pulse Rate 60 09/01/19 15:33 Respiratory Rate 16 09/01/19 15:33 Blood Pressure 107/59 09/01/19 15:33 Pulse Oximetry 94 09/01/19 15:33 MDM - Chest Pain MDM Narrative: Medical decision making narrative: Radiographically patient has a right basilar pneumonia will go ahead and treat him for that I would encourage him to stop the Keflex for now put him on levofloxacin he can use albuterol inhaler and Medrol Dosepak follow-up with primary care doctor next 3 to 4 days return to the ER if worsens Lab Data: Labs: Lab Results 09/01/19 09/01/19 09/01/19 Range/Units 13:55 13:55 13:55 WBC 12.2 H (4.0-10.0) 10^3/ uL RBC 4.51 (4.1-5.3) 10^6/u L Hgb 12.8 (11.7-16.6) g/dL Hct 40.1 L (42.0-52.0) % MCV 88.9 (80-94) fL MCH 28.4 (28.0-34.0) pg MCHC 31.9 (30.0-36.0) g/dL RDW 13.7 (12.1-15.1) % Plt Count 351 (130-400) 10^3/c mm MPV 11.0 H (7.4-10.4) fL Neut % (Auto) 72.9 % Lymph % (Auto) 16.4 % [place] % (Auto) 8.2 % Eos % (Auto) 1.6 % Baso % (Auto) 0.6 % Neut # (Auto) 8.9 H (1.8-7.7) 10^3/u L Lymph # (Auto) 2.0 (0.8-4.8) 10^3/u L [place] # (Auto) 1.0 H (0.2-0.9) 10^3/u L Eos # (Auto) 0.2 (0.0-0.8) 10^3/u L Baso # (Auto) 0.1 (0.0-0.1) 10^3/u L Nucleated RBC % (a uto) 0 % Nucleated RBCs # 0.0 /100WBC Sodium 135 L (136-145) mmol/L Potassium 4.0 (3.5-5.1) mmol/L Chloride 94 L (98-107) mmol/L Carbon Dioxide 28 (22-29) mmol/L Anion Gap 17.0 (5-19) BUN 26 H (6-20) mg/dL Creatinine 1.4 H (0.7-1.2) mg/dL GFR Calculation 52.8 L (90-130) mL/min Glucose 173 H (65-115) mg/dL POC Glucose (70-110) mg/dL Calculated Osmolal ity 281 L (285-295) mOsm/k g Calcium 9.5 (8.5-10.5) mg/dL Total Bilirubin 0.2 (0.15-1.2) mg/dL AST 20 (0-40) U/L ALT 24 (0-41) U/L Alkaline Phosphata se 58 (40-130) IU/L Troponin T Baselin e 11 (0-15) ng/L NT-Pro-B Natriuret Pep (0-125) pg/mL Total Protein 7.2 (6.6-8.7) g/dL Albumin 4.6 (3.5-5.2) g/dL Globulin 2.6 (1.3-4.6) g/dL 09/01/19 09/01/19 Range/Units 13:55 14:21 WBC (4.0-10.0) 10^3/ uL RBC (4.1-5.3) 10^6/u L Hgb (11.7-16.6) g/dL Hct (42.0-52.0) % MCV (80-94) fL MCH (28.0-34.0) pg MCHC (30.0-36.0) g/dL RDW (12.1-15.1) % Plt Count (130-400) 10^3/c mm MPV (7.4-10.4) fL Neut % (Auto) % Lymph % (Auto) % [place] % (Auto) % Eos % (Auto) % Baso % (Auto) % Neut # (Auto) (1.8-7.7) 10^3/u L Lymph # (Auto) (0.8-4.8) 10^3/u L [place] # (Auto) (0.2-0.9) 10^3/u L Eos # (Auto) (0.0-0.8) 10^3/u L Baso # (Auto) (0.0-0.1) 10^3/u L Nucleated RBC % (a uto) % Nucleated RBCs # /100WBC Sodium (136-145) mmol/L Potassium (3.5-5.1) mmol/L Chloride (98-107) mmol/L Carbon Dioxide (22-29) mmol/L Anion Gap (5-19) BUN (6-20) mg/dL Creatinine (0.7-1.2) mg/dL GFR Calculation (90-130) mL/min Glucose (65-115) mg/dL POC Glucose 170 (70-110) mg/dL Calculated Osmolal ity (285-295) mOsm/k g Calcium (8.5-10.5) mg/dL Total Bilirubin (0.15-1.2) mg/dL AST (0-40) U/L ALT (0-41) U/L Alkaline Phosphata se (40-130) IU/L Troponin T Baselin e (0-15) ng/L NT-Pro-B Natriuret Pep 23 (0-125) pg/mL Total Protein (6.6-8.7) g/dL Albumin (3.5-5.2) g/dL Globulin (1.3-4.6) g/dL Discharge Plan Discharge Patient Disposition: Home, Self-Care Clinical Impression: Pneumonia Condition: Stable Prescriptions: New Levaquin 750 mg tablet 750 mg PO DAILY 7 Days RF: 0 albuterol sulfate 90 mcg/actuation HFA aerosol inhaler 2 inh INHALATION Q4H PRN (Reason: shortness of breath or wheezing) Qty: 18 RF: 0 Discontinued cephalexin 500 mg capsule 500 mg PO BID Qty: 60 RF: 3 No Action losartan 50 mg tablet 50 mg PO DAILY RF: 0 aspirin 81 mg tablet,delayed release (DR/EC) 162 mg PO BEDTIME RF: 0 metformin 500 mg tablet extended release 24 hr 250 mg PO BID RF: 0 levothyroxine 75 mcg capsule 75 mcg PO DAILY RF: 0 tramadol 50 mg tablet 100 mg PO QID MDD 8 PRN (Reason: chronic pain) Qty: 90 RF: 0 tizanidine 4 mg tablet 4 mg PO TID PRN (Reason: muscle spasticity) Qty: 90 RF: 0 melatonin 3 mg tablet 3 mg PO BEDTIME PRN (Reason: sleep) Qty: 30 RF: 3 nitroglycerin 0.4 mg tablet, sublingual 0.4 mg SUBLINGUAL ONCE PRN (Reason: Chest Pain) RF: 0 gabapentin 800 mg tablet 800 mg PO TID Qty: 90 RF: 0 furosemide 40 mg tablet 40 mg PO DAILY 30 Days Qty: 30 RF: 6 potassium chloride 20 mEq tablet extended release 20 meq PO DAILY 30 Days Qty: 30 RF: 6 fenofibrate nanocrystallized [Tricor] 145 mg tablet 145 mg PO DAILY Qty: 30 RF: 0 metoprolol tartrate 25 mg tablet 25 mg PO BID Qty: 180 RF: 3 Zoloft 50 mg tablet 50 mg PO DAILY RF: 0 Seroquel 50 mg tablet 50 mg PO BEDTIME RF: 0 Discharge Orders: Discharge Order (Routine); Ordered 09/01/19 Ordered By: Jori Wall Referrals: Qi Muhammad DO [Primary Care Provider] - Discharge Diet: Advance as tolerated Discharge Activity: Limit activity as instructed Activity Restrictions/Additional Instructions: Follow-up with your primary care doctor in 3 to 4 days Discharge Date/Time: 09/01/19 15:41 Coding Level of Care Code ED Time Stamp Assembler for Chg Fwd Exam Comprehensive
[2019-09-01] MEDS: nitroglycerin 1 gm/inch oint Pkt 1 INCH TOPICAL (14:35)
[2019-09-01 15:15] LABS: NT Pro B Type Natriuretic Pept 23 pg/mL (0-125)
[2019-09-01 15:33] VITALS: BP 107/59; PULSE 60; RESP 16; O2SAT 94
== END 2019-09-01 15:41 | disposition home or self-care (01) ==
PROVIDERS: Emergency Provider Family Medicine; PCP Family Medicine
DX: J18.9 Pneumonia, unspecified organism (principal); Z79.82 Long term (current) use of aspirin; E11.9 Type 2 diabetes mellitus without complications; I11.0 Hypertensive heart disease with heart failure; I50.30 Unspecified diastolic (congestive) heart failure; I25.2 Old myocardial infarction; Z86.73 Personal history of transient ischemic attack (TIA), and cerebral infarction without residual deficits; Z87.891 Personal history of nicotine dependence
CPT/HCPCS: 12345; 36415; 36416; 71045; 80053; 82962; 83880; 84484; 85025; 93005; 99282; 99284

== ENCOUNTER 2019-09-02 15:18 | Emergency (ER) | payer SELFPAY ==
[2019-09-02 15:21] VITALS: BP 149/89; PULSE 70; RESP 18; TEMP 36.7; O2SAT 96; BMI 38.1
--- NOTE | 2019-09-02 15:54 | XRR_ITS ---
PROCEDURE INFORMATION: Exam: XR Chest, 1 View Exam date and time: 09/02/2019 5:05 PM Age: 54 years old Clinical indication: Cough and shortness of breath; Additional info: Dyspnea/cough TECHNIQUE: Imaging protocol: XR of the chest Views: 1 view. COMPARISON: CT XR chest 1V portable [id number] 09/01/2019 1:53 PM FINDINGS: Lungs: Lungs are well aerated without a focal area of consolidation. Pleural space: Unremarkable. No pleural effusion. No pneumothorax. Heart/Mediastinum: The cardiac silhouette appears enlarged, some of which is magnification related to the AP projection. Bones/joints: Prior surgical fixation of the caudal aspect of the cervical spine. XR/XR chest 1V portable [id number] IMPRESSION: Lungs are well aerated without a focal area of consolidation.
--- NOTE | 2019-09-02 15:54 | ECG_ITS ---
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 Measurements Intervals [place] Rate: 64 P: 43 OK: 158 QRS: 22 QRSD: 97 T: 41 QT: 377 QTc: 390 Interpretive Statements SINUS RHYTHM Compared to ECG 09/01/2019 13:54:59 No significant changes Electronically Signed On 09-02-2019 21:52:15 CDT by Susana Villasenor M.D. [id number] f
--- NOTE | 2019-09-02 15:55 | W.ED.SOB ---
Documented by User: Jori Wall DO 09/08/19 08:03 HPI - SOB/Dyspnea General: Chief Complaint: Shortness of Breath/Dyspnea Stated Complaint: sob Time Seen by Provider: 09/02/19 15:54 History of Present Illness: HPI Narrative: 54-year-old male who was seen yesterday had a right basilar pneumonia we stopped his Keflex and put him on levofloxacin. He had a PFT yesterday to he returns today with continued shortness of breath although his sats in the emergency room initially are 96% on room air. He tells me that his mother just recently tested +6 days ago for Kovic 14 days ago he had spent several hours with her if there at the extremes of the ranges it is possible that he did get exposed. However he is already at 14 days so is pretty unlikely that he would manifest symptoms distillate. He has been having shortness of breath problems for the last several months with the sweats and has had extensive work-ups including a stress test that was negative. We did see him yesterday started on levofloxacin. MD elicited complaint: shortness of breath, cough and chest pain Pertinent past history: COPD Onset (ago): month(s) Context: recent illness Timing: constant Severity: moderate Associated symptoms: Deny abdominal pain, chest pain, fever(s), nausea, orthopnea or vomiting Review of Systems Const: Denies: fever(s), chills, body aches, change in appetite, fatigue or malaise ENMT: Denies: throat pain, ear or mastoid pain, nasal discharge or nasal congestion Card: Denies: chest pain, edema, dyspnea on exertion or orthopnea Resp: Reports: dyspnea and productive cough; Denies: non-productive cough GI: Denies: abdominal pain, nausea, vomiting, hematemesis, coffee ground emesis, diarrhea, constipation, bloating, hematochezia or melena : Denies: flank pain, dysuria, urinary frequency or urinary urgency Skin/Breast: Denies: rash or pruritus PFSH ED PFSH: Medical History Anxiety with somatic features Chronic low back pain Chronic neck pain Diabetes Diastolic heart failure Essential (primary) hypertension History of MD (myocardial infarction) History of TIA (transient ischemic attack) Hypertriglyceridemia Hypothyroidism Internal hemorrhoids Left ventricular hypertrophy Major depressive disorder, recurrent, moderate MRSA (methicillin resistant Staphylococcus aureus) Pain management contract signed Persistent moderate somatic symptom disorder with predominant pain Umbilical hernia Surgical History H/O neck surgery S/P appendectomy S/P cholecystectomy S/P hernia repair Family History Mother CHF (congestive heart failure) Thyroid disease Sister Thyroid disease Father A-fib Brother Heart disease HX STENTS Other CAD (coronary artery disease) Diabetes Social History Smoking and tobacco status: never smoked Quit status (tobacco): has quit using tobacco Year quit tobacco: 2018 - 1.5 PPD x 17 Years Former quit date comment: Now uses smokelss tobacco Alcohol intake: current Alcohol intake frequency: few times a month Alcohol type: beer Lives independently: Yes Household members: spouse Marital status: Current occupational status: disabled History of recent travel: No Current gender identity: Male Physical Exam Const: COMMON NORMALS: no acute distress GENERAL APPEARANCE: cooperative and comfortable ORIENTATION/CONSCIOUSNESS: Yes awake, Yes oriented to person, Yes oriented to place and Yes oriented to time Eye: COMMON NORMALS: Equal, round and reactive pupils present, EOMs intact bilaterally, conjunctivae normal and no scleral icterus CONJUNCTIVA: Yes conjunctivae normal PUPIL: Yes Equal, round and reactive pupils present Neck/C-Spine: COMMON NORMALS: full ROM, no lymphadenopathy, supple and no JVD Lymph: LYMPHATIC: no lymphadenopathy noted and no lymphedema noted Resp: COMMON NORMALS: normal respiratory effort, No retractions, No use of accessory muscles and clear to auscultation bilaterally AUSCULTATION: clear to auscultation bilaterally Cardio: COMMON NORMALS: no JVD, regular rate, regular rhythm and No murmurs present (Cardio) RATE: regular rate RHYTHM: regular rhythm GI: COMMON NORMALS: Soft to palpation and No hepatosplenomegaly present AUSCULTATION: Yes normoactive bowel sounds PALPATION: Yes Soft to palpation, No Tenderness to palpation present (GI), No Guarding due to palpation present (GI) and Yes No hepatosplenomegaly present Extremity: COMMON NORMALS: normal to inspection, capillary refill normal, no clubbing, cyanosis or edema, no calf tenderness and no pedal edema Neuro: SENSORIUM/ORIENTATION: Yes oriented to person, Yes oriented to place and Yes oriented to time Skin: COMMON NORMALS: no rashes or lesions noted GENERAL SKIN EXAM: no rashes or lesions noted Course Vital Signs: Vital signs: Vital Signs Temperature 98.0 F 09/02/19 15:21 Pulse Rate 75 09/02/19 19:58 Respiratory Rate 20 H 09/02/19 19:58 Blood Pressure 132/99 09/02/19 19:58 Pulse Oximetry 95 09/02/19 19:58 MDM - SOB/Dyspnea MDM Narrative: Medical decision making narrative: Care turned over to Dr. Arriaga at change of shift Lab Data: Labs: Lab Results 09/02/19 09/02/19 09/02/19 Range/Units 16:20 16:20 16:20 WBC 10.8 H (4.0-10.0) 10^3/ uL RBC 4.87 (4.1-5.3) 10^6/u L Hgb 13.8 (11.7-16.6) g/dL Hct 43.6 (42.0-52.0) % MCV 89.5 (80-94) fL MCH 28.3 (28.0-34.0) pg MCHC 31.7 (30.0-36.0) g/dL RDW 13.6 (12.1-15.1) % Plt Count 353 (130-400) 10^3/c mm MPV 10.9 H (7.4-10.4) fL Neut % (Auto) 67.8 % Lymph % (Auto) 20.5 % [place] % (Auto) 7.9 % Eos % (Auto) 2.8 % Baso % (Auto) 0.6 % Neut # (Auto) 7.3 (1.8-7.7) 10^3/u L Lymph # (Auto) 2.2 (0.8-4.8) 10^3/u L [place] # (Auto) 0.9 (0.2-0.9) 10^3/u L Eos # (Auto) 0.3 (0.0-0.8) 10^3/u L Baso # (Auto) 0.1 (0.0-0.1) 10^3/u L Nucleated RBC % (a uto) 0 % Nucleated RBCs # 0.0 /100WBC Fibrinogen (184-529) mg/dL D-Dimer (0-0.59) ug/mIFE U Specimen Type Sample Site ABG pH (7.35-7.45) ABG pCO2 (35-45) mmHg ABG pO2 (80.0-100.0) mmH g ABG HCO3 (22-26) mmol/L ABG O2 Saturation ABG Base Excess (-2.0-2.0) mmol/ L Moy Test A-a O2 Gradient (5-10) mmHg Hematocrit (42-52) % Hgb O2 Saturation (95-100) % Carboxyhemoglobin (0.4-20.1) %THgb Methemoglobin (0.4-1.5) % Total Hemoglobin (14-18) g/dL Ionized Calcium (1.1-1.4) mmol/L O2 Delivery Device FiO2 % Television Host ID Sodium 133 L (136-145) mmol/L Potassium 3.8 (3.5-5.1) mmol/L Chloride 92 L (98-107) mmol/L Carbon Dioxide 25 (22-29) mmol/L Anion Gap 19.8 H (5-19) BUN 25 H (6-20) mg/dL Creatinine 1.3 H (0.7-1.2) mg/dL GFR Calculation 57.5 L (90-130) mL/min Glucose 148 H (65-115) mg/dL Calculated Osmolal ity 276 L (285-295) mOsm/k g Lactic Acid (0.5-2.2) mmol/L Calcium 9.9 (8.5-10.5) mg/dL Ferritin (30-400) ng/mL Total Bilirubin (0.15-1.2) mg/dL Direct Bilirubin (0.00-0.30) mg/d L AST (0-40) U/L ALT (0-41) U/L Alkaline Phosphata se (40-130) IU/L Lactate Dehydrogen ase (135-225) U/L C-Reactive Protein 2.8 (0.0-4.9) mg/L NT-Pro-B Natriuret Pep (0-125) pg/mL Total Protein (6.6-8.7) g/dL Albumin (3.5-5.2) g/dL Globulin (1.3-4.6) g/dL Procalcitonin (0-0.5) ng/mL Nasal/Oral COVID-1 9 PCR Influenza Type A A g (Negative) Influenza Type B A g (Negative) 09/02/19 09/02/19 09/02/19 Range/Units 16:20 16:20 16:20 WBC (4.0-10.0) 10^3/ uL RBC (4.1-5.3) 10^6/u L Hgb (11.7-16.6) g/dL Hct (42.0-52.0) % MCV (80-94) fL MCH (28.0-34.0) pg MCHC (30.0-36.0) g/dL RDW (12.1-15.1) % Plt Count (130-400) 10^3/c mm MPV (7.4-10.4) fL Neut % (Auto) % Lymph % (Auto) % [place] % (Auto) % Eos % (Auto) % Baso % (Auto) % Neut # (Auto) (1.8-7.7) 10^3/u L Lymph # (Auto) (0.8-4.8) 10^3/u L [place] # (Auto) (0.2-0.9) 10^3/u L Eos # (Auto) (0.0-0.8) 10^3/u L Baso # (Auto) (0.0-0.1) 10^3/u L Nucleated RBC % (a uto) % Nucleated RBCs # /100WBC Fibrinogen 350 (184-529) mg/dL D-Dimer 0.36 (0-0.59) ug/mIFE U Specimen Type Sample Site ABG pH (7.35-7.45) ABG pCO2 (35-45) mmHg ABG pO2 (80.0-100.0) mmH g ABG HCO3 (22-26) mmol/L ABG O2 Saturation ABG Base Excess (-2.0-2.0) mmol/ L Moy Test A-a O2 Gradient (5-10) mmHg Hematocrit (42-52) % Hgb O2 Saturation (95-100) % Carboxyhemoglobin (0.4-20.1) %THgb Methemoglobin (0.4-1.5) % Total Hemoglobin (14-18) g/dL Ionized Calcium (1.1-1.4) mmol/L O2 Delivery Device FiO2 % Television Host ID Sodium (136-145) mmol/L Potassium (3.5-5.1) mmol/L Chloride (98-107) mmol/L Carbon Dioxide (22-29) mmol/L Anion Gap (5-19) BUN (6-20) mg/dL Creatinine (0.7-1.2) mg/dL GFR Calculation (90-130) mL/min Glucose (65-115) mg/dL Calculated Osmolal ity (285-295) mOsm/k g Lactic Acid 2.5 H (0.5-2.2) mmol/L Calcium (8.5-10.5) mg/dL Ferritin 230 (30-400) ng/mL Total Bilirubin 0.2 (0.15-1.2) mg/dL Direct Bilirubin 0.20 (0.00-0.30) mg/d L AST 32 (0-40) U/L ALT 45 H (0-41) U/L Alkaline Phosphata se 58 (40-130) IU/L Lactate Dehydrogen ase 82 L (135-225) U/L C-Reactive Protein (0.0-4.9) mg/L NT-Pro-B Natriuret Pep 22 (0-125) pg/mL Total Protein 8.2 (6.6-8.7) g/dL Albumin 4.7 (3.5-5.2) g/dL Globulin 3.5 (1.3-4.6) g/dL Procalcitonin 0.09 (0-0.5) ng/mL Nasal/Oral COVID-1 9 PCR Influenza Type A A g (Negative) Influenza Type B A g (Negative) 09/02/19 09/02/19 09/02/19 Range/Units 16:28 17:08 17:40 WBC (4.0-10.0) 10^3/ uL RBC (4.1-5.3) 10^6/u L Hgb (11.7-16.6) g/dL Hct (42.0-52.0) % MCV (80-94) fL MCH (28.0-34.0) pg MCHC (30.0-36.0) g/dL RDW (12.1-15.1) % Plt Count (130-400) 10^3/c mm MPV (7.4-10.4) fL Neut % (Auto) % Lymph % (Auto) % [place] % (Auto) % Eos % (Auto) % Baso % (Auto) % Neut # (Auto) (1.8-7.7) 10^3/u L Lymph # (Auto) (0.8-4.8) 10^3/u L [place] # (Auto) (0.2-0.9) 10^3/u L Eos # (Auto) (0.0-0.8) 10^3/u L Baso # (Auto) (0.0-0.1) 10^3/u L Nucleated RBC % (a uto) % Nucleated RBCs # /100WBC Fibrinogen (184-529) mg/dL D-Dimer (0-0.59) ug/mIFE U Specimen Type Arterial Sample Site Radial, left ABG pH 7.42 (7.35-7.45) ABG pCO2 40.8 (35-45) mmHg ABG pO2 74.8 L (80.0-100.0) mmH g ABG HCO3 26.3 H (22-26) mmol/L ABG O2 Saturation 95.6 ABG Base Excess 1.6 (-2.0-2.0) mmol/ L Moy Test Pos A-a O2 Gradient 23.2 H (5-10) mmHg Hematocrit 43.8 (42-52) % Hgb O2 Saturation 94.0 L (95-100) % Carboxyhemoglobin 0.7 (0.4-20.1) %THgb Methemoglobin 1.0 (0.4-1.5) % Total Hemoglobin 14.3 (14-18) g/dL Ionized Calcium 1.2 (1.1-1.4) mmol/L O2 Delivery Device Room air FiO2 21.0 % Television Host ID glc Sodium 134.0 (136-145) mmol/L Potassium 3.9 (3.5-5.1) mmol/L Chloride (98-107) mmol/L Carbon Dioxide (22-29) mmol/L Anion Gap (5-19) BUN (6-20) mg/dL Creatinine (0.7-1.2) mg/dL GFR Calculation (90-130) mL/min Glucose 126.0 H (65-115) mg/dL Calculated Osmolal ity (285-295) mOsm/k g Lactic Acid (0.5-2.2) mmol/L Calcium (8.5-10.5) mg/dL Ferritin (30-400) ng/mL Total Bilirubin (0.15-1.2) mg/dL Direct Bilirubin (0.00-0.30) mg/d L AST (0-40) U/L ALT (0-41) U/L Alkaline Phosphata se (40-130) IU/L Lactate Dehydrogen ase (135-225) U/L C-Reactive Protein (0.0-4.9) mg/L NT-Pro-B Natriuret Pep (0-125) pg/mL Total Protein (6.6-8.7) g/dL Albumin (3.5-5.2) g/dL Globulin (1.3-4.6) g/dL Procalcitonin (0-0.5) ng/mL Nasal/Oral COVID-1 9 PCR N Influenza Type A A g Negative (Negative) Influenza Type B A g Negative (Negative) Discharge Plan Discharge Patient Disposition: Home, Self-Care Clinical Impression: Bronchitis Condition: Stable Prescriptions: New prednisone 50 mg tablet 50 mg PO DAILY Qty: 5 RF: 0 No Action losartan 50 mg tablet 50 mg PO DAILY RF: 0 aspirin 81 mg tablet,delayed release (DR/EC) 162 mg PO BEDTIME RF: 0 metformin 500 mg tablet extended release 24 hr 250 mg PO BID RF: 0 levothyroxine 75 mcg capsule 75 mcg PO DAILY RF: 0 tramadol 50 mg tablet 100 mg PO QID MDD 8 PRN (Reason: chronic pain) Qty: 90 RF: 0 tizanidine 4 mg tablet 4 mg PO TID PRN (Reason: muscle spasticity) Qty: 90 RF: 0 melatonin 3 mg tablet 3 mg PO BEDTIME PRN (Reason: sleep) Qty: 30 RF: 3 nitroglycerin 0.4 mg tablet, sublingual 0.4 mg SUBLINGUAL ONCE PRN (Reason: Chest Pain) RF: 0 gabapentin 800 mg tablet 800 mg PO TID Qty: 90 RF: 0 furosemide 40 mg tablet 40 mg PO DAILY 30 Days Qty: 30 RF: 6 potassium chloride 20 mEq tablet extended release 20 meq PO DAILY 30 Days Qty: 30 RF: 6 fenofibrate nanocrystallized [Tricor] 145 mg tablet 145 mg PO DAILY Qty: 30 RF: 0 metoprolol tartrate 25 mg tablet 25 mg PO BID Qty: 180 RF: 3 sertraline [Zoloft] 50 mg tablet 50 mg PO DAILY RF: 0 quetiapine [Seroquel] 50 mg tablet 50 mg PO BEDTIME RF: 0 albuterol sulfate 90 mcg/actuation HFA aerosol inhaler 2 inh INHALATION Q4H PRN (Reason: shortness of breath or wheezing) Qty: 18 RF: 0 Discharge Orders: Discharge Order (Routine); Ordered 09/02/19 Ordered By: Carlota Arriaga Referrals: Qi Muhammad DO [Primary Care Provider] - Discharge Diet: Advance as tolerated Discharge Activity: Resume usual activity Patient Instructions: Acute Bronchitis (ED) Discharge Date/Time: 09/02/19 20:02 Coding Level of Care Code ED Editorial Clerk for Chg Fwd Exam Comprehensive Documented by User: Carlota Arriaga MD 09/02/19 19:24 HPI - SOB/Dyspnea General: Chief Complaint: Shortness of Breath/Dyspnea Stated Complaint: sob Time Seen by Provider: 09/02/19 15:54 PFSH ED PFSH: Medical History Anxiety with somatic features Chronic low back pain Chronic neck pain Diabetes Diastolic heart failure Essential (primary) hypertension History of MD (myocardial infarction) History of TIA (transient ischemic attack) Hypertriglyceridemia Hypothyroidism Internal hemorrhoids Left ventricular hypertrophy Major depressive disorder, recurrent, moderate MRSA (methicillin resistant Staphylococcus aureus) Pain management contract signed Persistent moderate somatic symptom disorder with predominant pain Umbilical hernia Surgical History H/O neck surgery S/P appendectomy S/P cholecystectomy S/P hernia repair Family History Mother CHF (congestive heart failure) Thyroid disease Sister Thyroid disease Father A-fib Brother Heart disease HX STENTS Other CAD (coronary artery disease) Diabetes Social History Smoking and tobacco status: never smoked Quit status (tobacco): has quit using tobacco Year quit tobacco: 2018 - 1.5 PPD x 17 Years Former quit date comment: Now uses smokelss tobacco Alcohol intake: current Alcohol intake frequency: few times a month Alcohol type: beer Lives independently: Yes Household members: spouse Marital status: Current occupational status: disabled History of recent travel: No Current gender identity: Male Course Vital Signs: Vital signs: Vital Signs Temperature 98.0 F 09/02/19 15:21 Pulse Rate 75 09/02/19 19:58 Respiratory Rate 20 H 09/02/19 19:58 Blood Pressure 132/99 09/02/19 19:58 Pulse Oximetry 95 09/02/19 19:58 MDM - SOB/Dyspnea MDM Narrative: Medical decision making narrative: Patient presents with cough congestion does have pneumonia with a bronchitis. Patient already on Levaquin we will start him on prednisone. Patient's lab work here is normal he has no signs of pulmonary bruising. Patient is in no distress here and is stable for discharge. He is to return if worsening. Lab Data: Labs: Lab Results 09/02/19 09/02/19 09/02/19 Range/Units 16:20 16:20 16:20 WBC 10.8 H (4.0-10.0) 10^3/ uL RBC 4.87 (4.1-5.3) 10^6/u L Hgb 13.8 (11.7-16.6) g/dL Hct 43.6 (42.0-52.0) % MCV 89.5 (80-94) fL MCH 28.3 (28.0-34.0) pg MCHC 31.7 (30.0-36.0) g/dL RDW 13.6 (12.1-15.1) % Plt Count 353 (130-400) 10^3/c mm MPV 10.9 H (7.4-10.4) fL Neut % (Auto) 67.8 % Lymph % (Auto) 20.5 % [place] % (Auto) 7.9 % Eos % (Auto) 2.8 % Baso % (Auto) 0.6 % Neut # (Auto) 7.3 (1.8-7.7) 10^3/u L Lymph # (Auto) 2.2 (0.8-4.8) 10^3/u L [place] # (Auto) 0.9 (0.2-0.9) 10^3/u L Eos # (Auto) 0.3 (0.0-0.8) 10^3/u L Baso # (Auto) 0.1 (0.0-0.1) 10^3/u L Nucleated RBC % (a uto) 0 % Nucleated RBCs # 0.0 /100WBC Fibrinogen (184-529) mg/dL D-Dimer (0-0.59) ug/mIFE U Specimen Type Sample Site ABG pH (7.35-7.45) ABG pCO2 (35-45) mmHg ABG pO2 (80.0-100.0) mmH g ABG HCO3 (22-26) mmol/L ABG O2 Saturation ABG Base Excess (-2.0-2.0) mmol/ L Moy Test A-a O2 Gradient (5-10) mmHg Hematocrit (42-52) % Hgb O2 Saturation (95-100) % Carboxyhemoglobin (0.4-20.1) %THgb Methemoglobin (0.4-1.5) % Total Hemoglobin (14-18) g/dL Ionized Calcium (1.1-1.4) mmol/L O2 Delivery Device FiO2 % Television Host ID Sodium 133 L (136-145) mmol/L Potassium 3.8 (3.5-5.1) mmol/L Chloride 92 L (98-107) mmol/L Carbon Dioxide 25 (22-29) mmol/L Anion Gap 19.8 H (5-19) BUN 25 H (6-20) mg/dL Creatinine 1.3 H (0.7-1.2) mg/dL GFR Calculation 57.5 L (90-130) mL/min Glucose 148 H (65-115) mg/dL Calculated Osmolal ity 276 L (285-295) mOsm/k g Lactic Acid (0.5-2.2) mmol/L Calcium 9.9 (8.5-10.5) mg/dL Ferritin (30-400) ng/mL Total Bilirubin (0.15-1.2) mg/dL Direct Bilirubin (0.00-0.30) mg/d L AST (0-40) U/L ALT (0-41) U/L Alkaline Phosphata se (40-130) IU/L Lactate Dehydrogen ase (135-225) U/L C-Reactive Protein 2.8 (0.0-4.9) mg/L NT-Pro-B Natriuret Pep (0-125) pg/mL Total Protein (6.6-8.7) g/dL Albumin (3.5-5.2) g/dL Globulin (1.3-4.6) g/dL Procalcitonin (0-0.5) ng/mL Nasal/Oral COVID-1 9 PCR Influenza Type A A g (Negative) Influenza Type B A g (Negative) 09/02/19 09/02/19 09/02/19 Range/Units 16:20 16:20 16:20 WBC (4.0-10.0) 10^3/ uL RBC (4.1-5.3) 10^6/u L Hgb (11.7-16.6) g/dL Hct (42.0-52.0) % MCV (80-94) fL MCH (28.0-34.0) pg MCHC (30.0-36.0) g/dL RDW (12.1-15.1) % Plt Count (130-400) 10^3/c mm MPV (7.4-10.4) fL Neut % (Auto) % Lymph % (Auto) % [place] % (Auto) % Eos % (Auto) % Baso % (Auto) % Neut # (Auto) (1.8-7.7) 10^3/u L Lymph # (Auto) (0.8-4.8) 10^3/u L [place] # (Auto) (0.2-0.9) 10^3/u L Eos # (Auto) (0.0-0.8) 10^3/u L Baso # (Auto) (0.0-0.1) 10^3/u L Nucleated RBC % (a uto) % Nucleated RBCs # /100WBC Fibrinogen 350 (184-529) mg/dL D-Dimer 0.36 (0-0.59) ug/mIFE U Specimen Type Sample Site ABG pH (7.35-7.45) ABG pCO2 (35-45) mmHg ABG pO2 (80.0-100.0) mmH g ABG HCO3 (22-26) mmol/L ABG O2 Saturation ABG Base Excess (-2.0-2.0) mmol/ L Moy Test A-a O2 Gradient (5-10) mmHg Hematocrit (42-52) % Hgb O2 Saturation (95-100) % Carboxyhemoglobin (0.4-20.1) %THgb Methemoglobin (0.4-1.5) % Total Hemoglobin (14-18) g/dL Ionized Calcium (1.1-1.4) mmol/L O2 Delivery Device FiO2 % Television Host ID Sodium (136-145) mmol/L Potassium (3.5-5.1) mmol/L Chloride (98-107) mmol/L Carbon Dioxide (22-29) mmol/L Anion Gap (5-19) BUN (6-20) mg/dL Creatinine (0.7-1.2) mg/dL GFR Calculation (90-130) mL/min Glucose (65-115) mg/dL Calculated Osmolal ity (285-295) mOsm/k g Lactic Acid 2.5 H (0.5-2.2) mmol/L Calcium (8.5-10.5) mg/dL Ferritin 230 (30-400) ng/mL Total Bilirubin 0.2 (0.15-1.2) mg/dL Direct Bilirubin 0.20 (0.00-0.30) mg/d L AST 32 (0-40) U/L ALT 45 H (0-41) U/L Alkaline Phosphata se 58 (40-130) IU/L Lactate Dehydrogen ase 82 L (135-225) U/L C-Reactive Protein (0.0-4.9) mg/L NT-Pro-B Natriuret Pep 22 (0-125) pg/mL Total Protein 8.2 (6.6-8.7) g/dL Albumin 4.7 (3.5-5.2) g/dL Globulin 3.5 (1.3-4.6) g/dL Procalcitonin 0.09 (0-0.5) ng/mL Nasal/Oral COVID-1 9 PCR Influenza Type A A g (Negative) Influenza Type B A g (Negative) 09/02/19 09/02/19 09/02/19 Range/Units 16:28 17:08 17:40 WBC (4.0-10.0) 10^3/ uL RBC (4.1-5.3) 10^6/u L Hgb (11.7-16.6) g/dL Hct (42.0-52.0) % MCV (80-94) fL MCH (28.0-34.0) pg MCHC (30.0-36.0) g/dL RDW (12.1-15.1) % Plt Count (130-400) 10^3/c mm MPV (7.4-10.4) fL Neut % (Auto) % Lymph % (Auto) % [place] % (Auto) % Eos % (Auto) % Baso % (Auto) % Neut # (Auto) (1.8-7.7) 10^3/u L Lymph # (Auto) (0.8-4.8) 10^3/u L [place] # (Auto) (0.2-0.9) 10^3/u L Eos # (Auto) (0.0-0.8) 10^3/u L Baso # (Auto) (0.0-0.1) 10^3/u L Nucleated RBC % (a uto) % Nucleated RBCs # /100WBC Fibrinogen (184-529) mg/dL D-Dimer (0-0.59) ug/mIFE U Specimen Type Arterial Sample Site Radial, left ABG pH 7.42 (7.35-7.45) ABG pCO2 40.8 (35-45) mmHg ABG pO2 74.8 L (80.0-100.0) mmH g ABG HCO3 26.3 H (22-26) mmol/L ABG O2 Saturation 95.6 ABG Base Excess 1.6 (-2.0-2.0) mmol/ L Moy Test Pos A-a O2 Gradient 23.2 H (5-10) mmHg Hematocrit 43.8 (42-52) % Hgb O2 Saturation 94.0 L (95-100) % Carboxyhemoglobin 0.7 (0.4-20.1) %THgb Methemoglobin 1.0 (0.4-1.5) % Total Hemoglobin 14.3 (14-18) g/dL Ionized Calcium 1.2 (1.1-1.4) mmol/L O2 Delivery Device Room air FiO2 21.0 % Television Host ID glc Sodium 134.0 (136-145) mmol/L Potassium 3.9 (3.5-5.1) mmol/L Chloride (98-107) mmol/L Carbon Dioxide (22-29) mmol/L Anion Gap (5-19) BUN (6-20) mg/dL Creatinine (0.7-1.2) mg/dL GFR Calculation (90-130) mL/min Glucose 126.0 H (65-115) mg/dL Calculated Osmolal ity (285-295) mOsm/k g Lactic Acid (0.5-2.2) mmol/L Calcium (8.5-10.5) mg/dL Ferritin (30-400) ng/mL Total Bilirubin (0.15-1.2) mg/dL Direct Bilirubin (0.00-0.30) mg/d L AST (0-40) U/L ALT (0-41) U/L Alkaline Phosphata se (40-130) IU/L Lactate Dehydrogen ase (135-225) U/L C-Reactive Protein (0.0-4.9) mg/L NT-Pro-B Natriuret Pep (0-125) pg/mL Total Protein (6.6-8.7) g/dL Albumin (3.5-5.2) g/dL Globulin (1.3-4.6) g/dL Procalcitonin (0-0.5) ng/mL Nasal/Oral COVID-1 9 PCR N Influenza Type A A g Negative (Negative) Influenza Type B A g Negative (Negative) Discharge Plan Discharge Patient Disposition: Home, Self-Care Clinical Impression: Bronchitis Condition: Stable Prescriptions: New prednisone 50 mg tablet 50 mg PO DAILY Qty: 5 RF: 0 No Action losartan 50 mg tablet 50 mg PO DAILY RF: 0 aspirin 81 mg tablet,delayed release (DR/EC) 162 mg PO BEDTIME RF: 0 metformin 500 mg tablet extended release 24 hr 250 mg PO BID RF: 0 levothyroxine 75 mcg capsule 75 mcg PO DAILY RF: 0 tramadol 50 mg tablet 100 mg PO QID MDD 8 PRN (Reason: chronic pain) Qty: 90 RF: 0 tizanidine 4 mg tablet 4 mg PO TID PRN (Reason: muscle spasticity) Qty: 90 RF: 0 melatonin 3 mg tablet 3 mg PO BEDTIME PRN (Reason: sleep) Qty: 30 RF: 3 nitroglycerin 0.4 mg tablet, sublingual 0.4 mg SUBLINGUAL ONCE PRN (Reason: Chest Pain) RF: 0 gabapentin 800 mg tablet 800 mg PO TID Qty: 90 RF: 0 furosemide 40 mg tablet 40 mg PO DAILY 30 Days Qty: 30 RF: 6 potassium chloride 20 mEq tablet extended release 20 meq PO DAILY 30 Days Qty: 30 RF: 6 fenofibrate nanocrystallized [Tricor] 145 mg tablet 145 mg PO DAILY Qty: 30 RF: 0 metoprolol tartrate 25 mg tablet 25 mg PO BID Qty: 180 RF: 3 sertraline [Zoloft] 50 mg tablet 50 mg PO DAILY RF: 0 quetiapine [Seroquel] 50 mg tablet 50 mg PO BEDTIME RF: 0 albuterol sulfate 90 mcg/actuation HFA aerosol inhaler 2 inh INHALATION Q4H PRN (Reason: shortness of breath or wheezing) Qty: 18 RF: 0 Discharge Orders: Discharge Order (Routine); Ordered 09/02/19 Ordered By: Carlota Arriaga Referrals: Qi Muhammad DO [Primary Care Provider] - Discharge Diet: Advance as tolerated Discharge Activity: Resume usual activity Patient Instructions: Acute Bronchitis (ED) Discharge Date/Time: 09/02/19 20:02 Coding Level of Care Code ED Editorial Clerk for Chg Fwd Exam Comprehensive
[2019-09-02 16:24] VITALS: O2SAT 95
[2019-09-02 16:36] LABS: Basophils # 0.1 10^3/uL (0.0-0.1); Basophils % 0.6 %; Eosinophils # 0.3 10^3/uL (0.0-0.8); Eosinophils % 2.8 %; Hematocrit 43.6 % (42.0-52.0); Hemoglobin 13.8 g/dL (11.7-16.6); Lymphocytes # 2.2 10^3/uL (0.8-4.8); Lymphocytes % 20.5 %; Mean Corpuscular HGB Conc 31.7 g/dL (30.0-36.0); Mean Corpuscular Hemoglobin 28.3 pg (28.0-34.0); Mean Corpuscular Volume 89.5 fL (80-94); Mean Platelet Volume 10.9 fL (7.4-10.4); Monocytes # 0.9 10^3/uL (0.2-0.9); Monocytes % 7.9 %; Neutrophils # 7.3 10^3/uL (1.8-7.7); Neutrophils % 67.8 %; Nucleated Red Blood Cells % 0 %; Platelet Count 353 10^3/cmm (130-400); Red Blood Count 4.87 10^6/uL (4.1-5.3); Red Cell Distribution Width 13.6 % (12.1-15.1); White Blood Count 10.8 10^3/uL (4.0-10.0)
[2019-09-02 16:53] LABS: Anion Gap 19.8 (5-19); Blood Urea Nitrogen 25 mg/dL (6-20); Calcium 9.9 mg/dL (8.5-10.5); Carbon Dioxide 25 mmol/L (22-29); Chloride 92 mmol/L (98-107); Glomerular Filtration Rate 57.5 mL/min (90-130); Glucose 148 mg/dL (65-115); Osmolality Calculated 276 mOsm/kg (285-295); Potassium 3.8 mmol/L (3.5-5.1); Sodium 133 mmol/L (136-145)
[2019-09-02 17:00] LABS: Lactic Sepsis W/Reflex 2.5 mmol/L (0.5-2.2)
[2019-09-02 17:18] LABS: ABG PCO2 40.8 mmHg (35-45); ABG PH Result 7.42 (7.35-7.45); Alveolar-Arterial Oxygen Gradi 23.2 mmHg (5-10); Arterial Blood Gas Hematocrit 43.8 % (42-52); Base Excess ABG 1.6 mmol/L (-2.0-2.0); Blood Gas Allen Test Pos; Blood Gas Operator Identificat glc; Blood Gas Sample Site Radial, left; Blood Gas Sample Type Arterial; Carboxyhemoglobin 0.7 %THgb (0.4-20.1); HCO3 ABG 26.3 mmol/L (22-26); Ionized Calcium Level - ABG 1.2 mmol/L (1.1-1.4); Oxygen Device ROOM AIR; Oxygen Saturation ABG 95.6; PO2 ABG 74.8 mmHg (80.0-100.0); Potassium Level - ABG 3.9 mmol/L (3.5-5.0); Total Hemoglobin 14.3 g/dL (14-18)
[2019-09-02 17:22] VITALS: PULSE 72; RESP 16; O2SAT 97
[2019-09-02] MEDS: albuterol 8 gm MDI 2 PUFF INHALATION (17:24)
[2019-09-02] MEDS: LORazepam 2 mg/mL INJ 1 mL 1 MG IVP (17:31)
[2019-09-02 17:32] LABS: C Reactive Protein 2.8 mg/L (0.0-4.9)
[2019-09-02 17:40] VITALS: BP 134/81; PULSE 71; RESP 13; O2SAT 96
--- NOTE | 2019-09-02 17:42 | PC.NURSE ---
pt swabbed for covid 19 ramírez virus.
[2019-09-02 18:15] LABS: Influenza A by IFA Negative (Negative); Influenza B by IFA Negative (Negative)
[2019-09-02 18:19] LABS: NT Pro B Type Natriuretic Pept 22 pg/mL (0-125); Procalcitonin 0.09 ng/mL (0-0.5)
[2019-09-02 18:31] LABS: Alanine Aminotransferase 45 U/L (0-41); Albumin Level 4.7 g/dL (3.5-5.2); Alkaline Phosphatase 58 IU/L (40-130); Aspartate Amino Transferase 32 U/L (0-40); Ferritin 230 ng/mL (30-400); Globulin 3.5 g/dL (1.3-4.6); Lactate Dehydrogenase 82 U/L (135-225); Reflex Lactate Order REFLEX LACTIC ORDERD; Total Bilirubin 0.2 mg/dL (0.15-1.2); Total Protein 8.2 g/dL (6.6-8.7)
[2019-09-02 18:41] LABS: Fibrinogen 350 mg/dL (184-529)
[2019-09-02 18:45] LABS: D Dimer 0.36 ug/mIFEU (0-0.59)
[2019-09-02 19:58] VITALS: BP 132/99; PULSE 75; RESP 20; O2SAT 95
[2019-09-03 16:25] LABS: Coronavirus Lab Test PTC N
--- NOTE | 2019-09-03 16:45 | PC.NURSE ---
CALLED AND SPOKE WITH PATIENT TO INFORM HIM THAT HIS COVID TEST WAS NEGATIVE.
== END 2019-09-02 20:02 | disposition home or self-care (01) ==
PROVIDERS: Family Medicine; Emergency Provider Emergency Medicine; PCP Family Medicine
DX: J40 Bronchitis, not specified as acute or chronic (principal); Z79.84 Long term (current) use of oral hypoglycemic drugs; Z79.82 Long term (current) use of aspirin
CPT/HCPCS: 12345; 36415; 36600; 71045; 80048; 80051; 80076; 82728; 82810; 83605; 83615; 83880; 83986; 84145; 85025; 85378; 85384; 86140; 87040; 87635; 87804; 93005; 94640; 96374; 96375; 99283; 99284; J2060; J2930

== ENCOUNTER → 2019-09-16 09:43 | Outpatient (BNVA) | payer SELFPAY | PROVIDERS: PCP Family Medicine; Visit Provider Anesthesiology Pain Medicine | DX: G89.29 Other chronic pain (principal); M54.41 Lumbago with sciatica, right side; M47.22 Other spondylosis with radiculopathy, cervical region; M54.9 Dorsalgia, unspecified; R60.0 Localized edema; M96.1 Postlaminectomy syndrome, not elsewhere classified | CPT/HCPCS: 99214 ==

== ENCOUNTER 2019-09-24 18:39 | Emergency (ER) | payer SELFPAY ==
[2019-09-24 18:48] VITALS: BP 145/85; PULSE 84; RESP 20; TEMP 37.3; O2SAT 94; BMI 37.5
--- NOTE | 2019-09-24 19:52 | XRR_ITS ---
PROCEDURE INFORMATION: Exam: XR Chest, 1 View Exam date and time: 09/24/2019 8:37 PM Age: 54 years old Clinical indication: Dyspnea TECHNIQUE: Imaging protocol: XR of the chest Views: 1 view. COMPARISON: CR XR chest 1V portable [id number] 09/02/2019 4:55 PM FINDINGS: Lungs: Visualized portions of the lungs are clear. Pleural space: Unremarkable. No pleural effusion. No pneumothorax. Heart/Mediastinum: Heart is within normal limits of size. Bones/joints: There is moderate degenerative change in the thoracic spine. Other findings: Findings are not significantly changed from 09/02/2019 XR/XR chest 1V portable [id number] IMPRESSION: No acute infiltrate.
--- NOTE | 2019-09-24 19:52 | ECG_ITS ---
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 Measurements Intervals [place] Rate: 65 P: 52 CA: 151 QRS: 67 QRSD: 94 T: 28 QT: 382 QTc: 398 Interpretive Statements SINUS RHYTHM INTERPRETATION BASED ON A DEFAULT AGE OF 40 YEARS Compared to ECG 09/02/2019 15:28:06 No significant changes Electronically Signed On 09-25-2019 1:22:59 CDT by Tony Reyes M.D. [id number]
[2019-09-24 20:03] VITALS: BP 164/83; PULSE 67; RESP 18; O2SAT 97
[2019-09-24 20:50] VITALS: BP 117/56; PULSE 65; RESP 16; O2SAT 96
[2019-09-24 20:57] LABS: Basophils % 0.3 %; Eosinophils # 0.5 10^3/uL (0.0-0.8); Eosinophils % 5.2 %; Hematocrit 40.7 % (42.0-52.0); Hemoglobin 13.1 g/dL (11.7-16.6); Lymphocytes # 2.2 10^3/uL (0.8-4.8); Lymphocytes % 20.9 %; Mean Corpuscular HGB Conc 32.2 g/dL (30.0-36.0); Mean Corpuscular Volume 90.2 fL (80-94); Mean Platelet Volume 10.3 fL (7.4-10.4); Monocytes # 0.9 10^3/uL (0.2-0.9); Monocytes % 8.4 %; Neutrophils # 6.66 10^3/uL (1.8-7.7); Neutrophils % 64.7 %; Nucleated Red Blood Cells % 0 %; Platelet Count 362 10^3/cmm (130-400); Red Blood Count 4.51 10^6/uL (4.1-5.3); Red Cell Distribution Width 13.9 % (12.1-15.1); White Blood Count 10.3 10^3/uL (4.0-10.0)
[2019-09-24 21:00] VITALS: BP 176/77; PULSE 66; RESP 16; O2SAT 95
--- NOTE | 2019-09-24 21:28 | W.ED.SOB ---
HPI - SOB/Dyspnea General: Chief Complaint: Shortness of Breath/Dyspnea Stated Complaint: fluid build up History of Present Illness: HPI Narrative: 54-year-old morbidly obese male with history congestive heart failure in the emergency department shortness of breath. He called his specialist earlier today who recommended that he come to the emergency department for evaluation C was having some difficulty with shortness of breath. The patient has had any fever nor see any cough. He hasn't been around any ill contacts. No concerns of aspiration pneumonia has been taking his medications as directed. His only complaint other than shortness of breath is a red area on his right foot. This itches he feels like he may have gotten bit by insect or arthropod. MD elicited complaint: shortness of breath and anxiety Pertinent past history: COPD and congestive heart failure Onset (ago): hour(s) Context: recent illness Timing: constant and progressively worsening Severity: similar to previous episodes Exacerbating factors: nothing Relieving factors: nothing Associated symptoms: Reports orthopnea; Deny chest pain, fever(s) or palpitations Review of Systems General: Reports: 10 or more systems reviewed and unremarkable except in HPI and below Const: Denies: fever(s), chills or change in weight Eyes: Denies: change in vision Card: Reports: dyspnea on exertion and orthopnea; Denies: chest pain or palpitations Musc: Denies: neck pain or back pain Skin/Breast: Reports: pruritus and erythema PFSH ED PFSH: Medical History Anxiety with somatic features Chronic low back pain Chronic neck pain Congestive heart failure Diabetes Diastolic heart failure Essential (primary) hypertension History of IA (myocardial infarction) History of TIA (transient ischemic attack) Hypertriglyceridemia Hypothyroidism Internal hemorrhoids Left ventricular hypertrophy Major depressive disorder, recurrent, moderate MRSA (methicillin resistant Staphylococcus aureus) Pain management contract signed Persistent moderate somatic symptom disorder with predominant pain Umbilical hernia Surgical History H/O neck surgery S/P appendectomy S/P cholecystectomy S/P hernia repair Family History Mother CHF (congestive heart failure) Thyroid disease Sister Thyroid disease Father A-fib Brother Heart disease HX STENTS Other CAD (coronary artery disease) Diabetes Social History Smoking and tobacco status: former smoker Quit status (tobacco): has quit using tobacco Year quit tobacco: 2018 - 1.5 PPD x 17 Years Former quit date comment: Now uses smokelss tobacco Alcohol intake: current Alcohol intake frequency: few times a month Alcohol type: beer Lives independently: Yes Household members: spouse Marital status: Current occupational status: disabled History of recent travel: No Current gender identity: Male Physical Exam Const: COMMON NORMALS: no acute distress, average body habitus, patient oriented x3, no limitations, healthy appearing, alert and well nourished HENMT: COMMON NORMALS: normocephalic HEAD & SCALP: normocephalic Eye: COMMON NORMALS: Equal, round and reactive pupils present, EOMs intact bilaterally and conjunctivae normal CONJUNCTIVA: Yes conjunctivae normal PUPIL: Yes Equal, round and reactive pupils present Neck/C-Spine: COMMON NORMALS: full ROM, no lymphadenopathy, supple, no meningeal signs, no JVD, Thyroid normal and No carotid bruits THYROID: Thyroid normal Chest: COMMONS NORMALS: normal inspection of the chest and normal palpation of entire chest wall Resp: COMMON NORMALS: normal respiratory effort, No retractions, No use of accessory muscles, clear to auscultation bilaterally and percussion normal AUSCULTATION: clear to auscultation bilaterally PERCUSSION: percussion normal Cardio: COMMON NORMALS: no JVD GI: COMMON NORMALS: Normal to inspection, nondistended, normoactive bowel sounds present, Soft to palpation, non-tender, No hepatosplenomegaly present, no masses and no bruits PALPATION: Yes Soft to palpation and Yes No hepatosplenomegaly present : COMMON NORMALS: Yes no CVA tenderness BLADDER/KIDNEY EXAM: Yes no CVA tenderness Back/Pelvis: COMMON NORMALS: no CVA tenderness Extremity: COMMON NORMALS: normal to inspection, full ROM, capillary refill normal, no joint enlargement, no clubbing, cyanosis or edema, no calf tenderness and no pedal edema Neuro: COMMON NORMALS: patient oriented x3 SENSORIUM/ORIENTATION: Yes alert MENINGEAL SIGNS: Yes no meningeal signs Skin: COMMON NORMALS: no rashes or lesions noted, no wounds, turgor normal, no jaundice, no petechiae and no mottling GENERAL SKIN EXAM: no rashes or lesions noted and turgor normal Course Vital Signs: Vital signs: Vital Signs Temperature 99.2 F 09/24/19 18:48 Pulse Rate 64 09/24/19 22:16 Respiratory Rate 13 09/24/19 22:16 Blood Pressure 174/86 09/24/19 22:16 Pulse Oximetry 97 09/24/19 22:16 MDM - SOB/Dyspnea MDM Narrative: Medical decision making narrative: 54-year-old male in with complaints of shortness of breath. He doesn't appear to be particularly in any respiratory distress he appears more anxious and agitated more than anything. Routine workup will ensue. Chest x-ray does show some concerns of pulmonary vascular congestion is given 80 mg of Lasix and had almost 400 mL out. BNP was within normal limits most of her labs were not overly concerning he remained with very stable vital signs we talked about the risks benefits alternatives and complications coming in the hospital ultimately decided that it be best served for him to go home with self care and close follow-up. He is instructed to call his physicians in the morning for follow-up. Return precautions and instructions were given. Lab Data: Labs: Lab Results 09/24/19 09/24/19 09/24/19 Range/Units 20:46 20:46 20:46 WBC 10.3 H (4.0-10.0) 10^3/ uL RBC 4.51 (4.1-5.3) 10^6/u L Hgb 13.1 (11.7-16.6) g/dL Hct 40.7 L (42.0-52.0) % MCV 90.2 (80-94) fL MCH 29.0 (28.0-34.0) pg MCHC 32.2 (30.0-36.0) g/dL RDW 13.9 (12.1-15.1) % Plt Count 362 (130-400) 10^3/c mm MPV 10.3 (7.4-10.4) fL Neut % (Auto) 64.7 % Lymph % (Auto) 20.9 % Kern % (Auto) 8.4 % Eos % (Auto) 5.2 % Baso % (Auto) 0.3 % Neut # (Auto) 6.66 (1.8-7.7) 10^3/u L Lymph # (Auto) 2.2 (0.8-4.8) 10^3/u L Kern # (Auto) 0.9 (0.2-0.9) 10^3/u L Eos # (Auto) 0.5 (0.0-0.8) 10^3/u L Baso # (Auto) 0.0 (0.0-0.1) 10^3/u L Nucleated RBC % (a uto) 0 % Nucleated RBCs # 0.0 /100WBC Sodium 135 L (136-145) mmol/L Potassium 4.7 (3.5-5.1) mmol/L Chloride 96 L (98-107) mmol/L Carbon Dioxide 28 (22-29) mmol/L Anion Gap 15.7 (5-19) BUN 16 (6-20) mg/dL Creatinine 1.2 (0.7-1.2) mg/dL GFR Calculation 63.1 L (90-130) mL/min Glucose 126 H (65-115) mg/dL Calculated Osmolal ity 278 L (285-295) mOsm/k g Calcium 9.7 (8.5-10.5) mg/dL Total Bilirubin 0.2 (0.15-1.2) mg/dL AST 17 (0-40) U/L ALT 23 (0-41) U/L Alkaline Phosphata se 52 (40-130) IU/L Troponin T Baselin e 12 (0-15) ng/L NT-Pro-B Natriuret Pep 34 (0-125) pg/mL Total Protein 7.7 (6.6-8.7) g/dL Albumin 5.0 (3.5-5.2) g/dL Globulin 2.7 (1.3-4.6) g/dL Discharge Plan Discharge Patient Disposition: Home, Self-Care Clinical Impression: Shortness of breath, Congestive heart failure Condition: Stable Prescriptions: No Action losartan 50 mg tablet 50 mg PO DAILY RF: 0 aspirin 81 mg tablet,delayed release (DR/EC) 162 mg PO BEDTIME RF: 0 metformin 500 mg tablet extended release 24 hr 250 mg PO BID RF: 0 levothyroxine 75 mcg capsule 75 mcg PO DAILY RF: 0 tramadol 50 mg tablet 100 mg PO QID MDD 8 PRN (Reason: chronic pain) Qty: 90 RF: 0 melatonin 3 mg tablet 3 mg PO BEDTIME PRN (Reason: sleep) Qty: 30 RF: 3 nitroglycerin 0.4 mg tablet, sublingual 0.4 mg SUBLINGUAL ONCE PRN (Reason: Chest Pain) RF: 0 furosemide 40 mg tablet 40 mg PO BID RF: 0 hydrocodone-acetaminophen 5-325 mg tablet 1 tab PO TID PRN (Reason: pain) 7 Days Qty: 20 RF: 0 gabapentin 800 mg tablet 800 mg PO TID Qty: 90 RF: 0 tizanidine 4 mg tablet 4 mg PO TID PRN (Reason: muscle spasticity) Qty: 90 RF: 0 potassium chloride 20 mEq tablet extended release 20 meq PO DAILY 30 Days Qty: 30 RF: 6 fenofibrate nanocrystallized [Tricor] 145 mg tablet 145 mg PO DAILY Qty: 30 RF: 0 metoprolol tartrate 25 mg tablet 25 mg PO BID Qty: 180 RF: 3 sertraline [Zoloft] 50 mg tablet 50 mg PO DAILY RF: 0 quetiapine [Seroquel] 50 mg tablet 50 mg PO BEDTIME RF: 0 albuterol sulfate 90 mcg/actuation HFA aerosol inhaler 2 inh INHALATION Q4H PRN (Reason: shortness of breath or wheezing) Qty: 18 RF: 0 Discharge Orders: Discharge Order (Routine); Ordered 09/24/19 Ordered By: Geovanny Espino Referrals: Qi Muhammad DO [Primary Care Provider] - Discharge Diet: Low Salt Discharge Activity: Limit activity as instructed Patient Instructions: Heart Failure (ED) Coding Level of Care Code 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
[2019-09-24 21:32] LABS: Troponin(5th) Baseline 12 ng/L (0-15)
[2019-09-24 21:40] LABS: Alanine Aminotransferase 23 U/L (0-41); Alkaline Phosphatase 52 IU/L (40-130); Anion Gap 15.7 (5-19); Aspartate Amino Transferase 17 U/L (0-40); Blood Urea Nitrogen 16 mg/dL (6-20); Calcium 9.7 mg/dL (8.5-10.5); Carbon Dioxide 28 mmol/L (22-29); Chloride 96 mmol/L (98-107); Globulin 2.7 g/dL (1.3-4.6); Glomerular Filtration Rate 63.1 mL/min (90-130); Glucose 126 mg/dL (65-115); NT Pro B Type Natriuretic Pept 34 pg/mL (0-125); Osmolality Calculated 278 mOsm/kg (285-295); Potassium 4.7 mmol/L (3.5-5.1); Sodium 135 mmol/L (136-145); Total Bilirubin 0.2 mg/dL (0.15-1.2); Total Protein 7.7 g/dL (6.6-8.7)
--- NOTE | 2019-09-24 21:52 | ECG_ITS ---
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 Measurements Intervals [place] Rate: 59 P: 46 [place]: 152 QRS: 39 QRSD: 89 T: 56 QT: 404 QTc: 401 Interpretive Statements SINUS BRADYCARDIA Compared to ECG 09/24/2019 20:12:30 Sinus rhythm no longer present Electronically Signed On 09-25-2019 23:43:08 CDT by Tony Reyes M.D. [email or web address] [email or web address] [email or web address] [id number]
--- NOTE | 2019-09-24 21:56 | PC.NURSE ---
EKG done at 2153 and shown to ER doctor
[2019-09-24] MEDS: FUROsemide 10 mg/mL SDV 10mL 80 MG IVP (22:15)
[2019-09-24] MEDS: LORazepam 2 mg/mL INJ 1 mL 1 MG IVP (22:15)
[2019-09-24 22:16] VITALS: BP 174/86; PULSE 64; RESP 13; O2SAT 97
[2019-09-24 23:47] VITALS: BP 152/77; PULSE 81; RESP 16; O2SAT 96
== END 2019-09-24 23:52 | disposition home or self-care (01) ==
PROVIDERS: Emergency Medicine; Emergency Provider Family Medicine; PCP Family Medicine
DX: R06.02 Shortness of breath (principal); I11.0 Hypertensive heart disease with heart failure; I50.9 Heart failure, unspecified; Z79.82 Long term (current) use of aspirin; E11.9 Type 2 diabetes mellitus without complications; I25.2 Old myocardial infarction; Z86.73 Personal history of transient ischemic attack (TIA), and cerebral infarction without residual deficits; Z79.84 Long term (current) use of oral hypoglycemic drugs; Z87.891 Personal history of nicotine dependence
CPT/HCPCS: 12345; 71045; 80053; 83880; 84484; 85025; 93005; 96374; 96375; 99283; 99284; J1940; J2060

== ENCOUNTER → 2019-10-01 09:21 | Outpatient (BNVA) | payer SELFPAY | PROVIDERS: PCP Family Medicine; Visit Provider Anesthesiology Pain Medicine | DX: G89.29 Other chronic pain (principal); M54.41 Lumbago with sciatica, right side; M47.22 Other spondylosis with radiculopathy, cervical region; M54.9 Dorsalgia, unspecified; M96.1 Postlaminectomy syndrome, not elsewhere classified; Z79.891 Long term (current) use of opiate analgesic | CPT/HCPCS: 99213; 99214 ==

== ENCOUNTER → 2019-10-05 08:49 | Outpatient (BNVA) | payer SELFPAY | PROVIDERS: PCP Family Medicine; Visit Provider Family Medicine | DX: E11.9 Type 2 diabetes mellitus without complications (principal); E03.9 Hypothyroidism, unspecified | CPT/HCPCS: 80061; 82044; 83036; 83721; 84443 ==

== ENCOUNTER 2019-10-07 10:00 | Outpatient (CLI) | payer SELFPAY ==
--- NOTE | 2019-10-07 10:15 | MR_ITS ---
WS: [id number] MRI LUMBAR SPINE NONCONTRAST HISTORY: LUMBAR RADICULOPATHY COMPARISON: 08/24/2015 CT. TECHNIQUE: Sagittal and axial multisequence imaging is submitted. Mild straightening of the normal lumbar lordosis. There is very mild LEFT convex curvature of the mid lumbar spine. Disc desiccation is mild throughout. Most significant desiccation and narrowing at L3-4. Endplate ost eophytes at all levels. No acute marrow edema or fracture. Conus terminates normally at L1. L1-L2: Normal. L2-L3: Diffuse annular disc bulging. There is a moderate size RIGHT subarticular recess disc protrusi on encroaching into the lateral recess and deforming the RIGHT thecal sac. This disc is superimposed on moderate annular disc bulging with mild ligamentum flavum hypertrophy and facet arthritis. L3-L4: Moderate diffuse annular disc bulging with facet and ligamentum flavum arthritis. Bilateral fa cet joint arthritis and ligamentum flavum hypertrophy. Disc osteophyte extends into the RIGHT subarti cular recess encroaching upon the thecal sac and the L4 nerve root. Moderate RIGHT and mild LEFT fora tara stenosis. L4-L5: Diffuse annular disc bulging with facet and ligamentum flavum hypertrophy. Facet joint arthrit is and osteophytes contribute to moderate LEFT foraminal stenosis. Mild stenosis on the RIGHT. L5-S1: Mild annular disc bulging with facet and ligamentum flavum hypertrophy. Greater degenerative c hanges involving the LEFT facet joint. No central stenosis. Moderate LEFT and mild RIGHT foraminal st enosis. Paravertebral soft tissues are negative. MR/MR lumbar spine wo con* [id number] IMPRESSION: 1. Moderate size RIGHT subarticular recess disc protrusion at L2-3 with deform ity of the RIGHT lateral thecal sac and significant encroachment on the L3 nerv e root. 2. Moderate RIGHT and mild LEFT foraminal stenosis at L3-4. Disc osteophyte ex tends into the RIGHT subarticular recess with encroachment upon the L4 nerve ro ot. 3. Moderate LEFT and mild RIGHT foraminal stenosis at L4-5 and L5-S1 predomina ntly due to disc and facet arthritis.
--- NOTE | 2019-10-07 11:00 | XR_ITS ---
WS: [id number] LATERAL LUMBAR SPINE: 3 view. Lateral radiographs are performed in upright neutral, flexion and extension to the patient's toleranc e. HISTORY: pain COMPARISON: None available. L1, L2 and L3 retrolisthesis by 3 mm on neutral imaging. With flexion and extension there is no signi ficant change taking into consideration the rotation of the vertebral bodies. Mild disc space narrowi ng throughout the lumbar spine. No fractures. XR/XR lumbar spine f/e only [id number] IMPRESSION: Mild retrolisthesis of L1-L3 with no instability.
== END 2019-10-07 10:01 | disposition home or self-care (01) ==
LOC: RADWPI 10:02
PROVIDERS: Family Provider Family Medicine; PCP Family Medicine; Visit Provider Anesthesiology Pain Medicine
DX: M54.16 Radiculopathy, lumbar region (principal); M51.26 Other intervertebral disc displacement, lumbar region; M48.061 Spinal stenosis, lumbar region without neurogenic claudication
CPT/HCPCS: 72120; 72148

== ENCOUNTER → 2019-10-09 09:54 | Outpatient (BNVA) | payer SELFPAY | PROVIDERS: PCP Family Medicine; Visit Provider Anesthesiology Pain Medicine | DX: G89.29 Other chronic pain (principal); M47.816 Spondylosis without myelopathy or radiculopathy, lumbar region; M47.22 Other spondylosis with radiculopathy, cervical region; M96.1 Postlaminectomy syndrome, not elsewhere classified; M54.9 Dorsalgia, unspecified; Z79.891 Long term (current) use of opiate analgesic | CPT/HCPCS: 64493; 64494; 64495; 99214; J3490 ==

== ENCOUNTER → 2019-10-21 10:59 | Outpatient (BNVA) | payer SELFPAY | PROVIDERS: PCP Family Medicine; Visit Provider Anesthesiology Pain Medicine | DX: G89.29 Other chronic pain (principal); M47.816 Spondylosis without myelopathy or radiculopathy, lumbar region; M47.22 Other spondylosis with radiculopathy, cervical region; M96.1 Postlaminectomy syndrome, not elsewhere classified; M54.9 Dorsalgia, unspecified | CPT/HCPCS: 64635; 64636; 99213; 99214; J1030 ==

== ENCOUNTER → 2019-11-05 13:05 | Outpatient (BNVA) | payer SELFPAY | PROVIDERS: PCP Family Medicine; Visit Provider Anesthesiology Pain Medicine | DX: G89.29 Other chronic pain (principal); M54.41 Lumbago with sciatica, right side; M47.22 Other spondylosis with radiculopathy, cervical region; M54.9 Dorsalgia, unspecified; M96.1 Postlaminectomy syndrome, not elsewhere classified; Z79.891 Long term (current) use of opiate analgesic | CPT/HCPCS: 99214 ==

== ENCOUNTER → 2019-11-18 13:26 | Outpatient (BNVA) | payer SELFPAY | PROVIDERS: PCP Family Medicine; Visit Provider Anesthesiology Pain Medicine | DX: G89.29 Other chronic pain (principal); M54.16 Radiculopathy, lumbar region; Z79.891 Long term (current) use of opiate analgesic | CPT/HCPCS: 64483; 64484; J1030; J3490 ==

== ENCOUNTER 2019-11-28 02:30 | Emergency (ER) | payer SELFPAY ==
[2019-11-28] VITALS (11 sets, daily range): BP systolic 125–171; BP diastolic 70–93; PULSE 73–90; RESP 12–20; TEMP 36.7–37; O2SAT 92–98; BMI 37.5
--- NOTE | 2019-11-28 02:34 | XRR_ITS ---
PROCEDURE INFORMATION: Exam: XR Abdomen, 1 View Exam date and time: 11/28/2019 2:55 AM Age: 54 years old Clinical indication: Constipation; Prior surgery; Surgery type: Gb hernia TECHNIQUE: Imaging protocol: XR of the abdomen. Views: Frontal supine view of the abdomen. 1 View. COMPARISON: CT abdomen pelvis con [id number] 04/08/2019 12:22 PM FINDINGS: Gastrointestinal tract: Normal. No bowel dilation. Organs: Status post cholecystectomy. Bones/joints: Unremarkable. XR/XR KUB portable [id number] IMPRESSION: No acute findings.
--- NOTE | 2019-11-28 02:35 | W.ED.ABDPA2 ---
HPI - Abdominal Pain General: Chief Complaint: Abdominal Pain Stated Complaint: constipation Time Seen by Provider: 11/28/19 02:33 Source: patient and EMS Mode of arrival: EMS Limitations: no limitations History of Present Illness: HPI narrative: 54-year-old male states that he has had severe constipation over the last 5 days and has not been able to have a bowel movement. States he is having worsening abdominal pain now rates a 9 out of 10. Denies any fever. He states he is been taking MiraLAX and is only had small bowel movements. MD elicited complaint: abdominal pain Pertinent past history: constipation Associated Symptoms: Denies chills, dysuria and fever(s) Review of Systems Const: Denies: fever(s), chills, body aches or change in appetite Eyes: Denies: blurry vision or eye discomfort ENMT: Denies: throat pain or dental pain Card: Denies: chest pain Resp: Denies: dyspnea GI: Reports: abdominal pain : Denies: dysuria Musc: Denies: neck pain or back pain Skin/Breast: Denies: rash Neuro: Denies: headache(s) Psych: Denies: depression Cornelius/Lymph: Denies: easy bruising All/Imm: Denies: urticaria PFSH ED PFSH: Medical History Anxiety with somatic features Chewing tobacco nicotine dependence Chronic low back pain Chronic neck pain Congestive heart failure Diabetes Diastolic heart failure Essential (primary) hypertension History of OR (myocardial infarction) History of TIA (transient ischemic attack) Hypertriglyceridemia Hypothyroidism Internal hemorrhoids Left ventricular hypertrophy Major depressive disorder, recurrent, moderate MRSA (methicillin resistant Staphylococcus aureus) Pain management contract signed Persistent moderate somatic symptom disorder with predominant pain Umbilical hernia Surgical History H/O neck surgery S/P appendectomy S/P cholecystectomy S/P hernia repair Family History Mother CHF (congestive heart failure) Thyroid disease Sister Thyroid disease Father A-fib Brother Heart disease HX STENTS Other CAD (coronary artery disease) Diabetes Social History Smoking and tobacco status: former smoker Quit status (tobacco): has quit using tobacco Year quit tobacco: 2018 - 1.5 PPD x 17 Years Former quit date comment: Now uses smokelss tobacco Alcohol intake: current Alcohol intake frequency: few times a month Alcohol type: beer Lives independently: Yes Household members: spouse Marital status: Current occupational status: disabled History of recent travel: No Current gender identity: Male Physical Exam Const: COMMON NORMALS: no acute distress, patient oriented x3 and healthy appearing HENMT: COMMON NORMALS: normocephalic and atraumatic HEAD & SCALP: normocephalic and atraumatic Eye: COMMON NORMALS: Equal, round and reactive pupils present and EOMs intact bilaterally PUPIL: Yes Equal, round and reactive pupils present Neck/C-Spine: COMMON NORMALS: full ROM and supple Chest: COMMONS NORMALS: normal inspection of the chest and normal palpation of entire chest wall Resp: COMMON NORMALS: normal respiratory effort, No retractions, No use of accessory muscles and clear to auscultation bilaterally AUSCULTATION: clear to auscultation bilaterally Cardio: COMMON NORMALS: regular rate, regular rhythm and No murmurs present (Cardio) RATE: regular rate RHYTHM: regular rhythm GI: COMMON NORMALS: no masses OTHER: Distended with diffuse tenderness Extremity: COMMON NORMALS: normal to inspection and full ROM Neuro: COMMON NORMALS: patient oriented x3, moves all extremities and no focal motor deficits Psych: COMMON NORMALS: mental status grossly normal, Normal thought process present and cooperative THOUGHT PROCESS: Normal thought process present Skin: COMMON NORMALS: no rashes or lesions noted and no wounds GENERAL SKIN EXAM: no rashes or lesions noted Course Vital Signs: Vital signs: Vital Signs Temperature 98.1 F 11/28/19 02:31 Pulse Rate 75 11/28/19 04:01 Respiratory Rate 15 11/28/19 04:36 Blood Pressure 136/93 11/28/19 04:01 Pulse Oximetry 97 11/28/19 04:36 MDM - Abdominal Pain MDM Narrative: Medical decision making narrative: Patient presents with abdominal pain and constipation. He states he disimpact himself at home and removed a large amount of stool states he still is having pain. Patient taking laxatives. Patient CT scan here shows no acute findings. I did inform him of the lesion noted in his liver that I recommended him to follow-up with his PCP for MRI. Patient's pain is improved here. His white count and lactate levels were normal and he has no signs of ischemic bowel. Will prescribe him Reglan for home and he is to follow-up with his PCP in 3 to 5 days. If his pain worsens he is to return. He understands and agrees to the plan. Lab Data: Labs: Lab Results 11/28/19 11/28/19 11/28/19 Range/Units 02:53 02:53 04:33 WBC 11.6 H (4.0-10.0) 10^3/ uL RBC 4.27 (4.1-5.3) 10^6/u L Hgb 12.4 (11.7-16.6) g/dL Hct 37.6 L (42.0-52.0) % MCV 88.1 (80-94) fL MCH 29.0 (28.0-34.0) pg MCHC 33.0 (30.0-36.0) g/dL RDW 12.5 (12.1-15.1) % Plt Count 382 (130-400) 10^3/c mm MPV 10.5 H (7.4-10.4) fL Neut % (Auto) 75.5 % Lymph % (Auto) 14.2 % [place] % (Auto) 8.6 % Eos % (Auto) 1.0 % Baso % (Auto) 0.4 % Neut # (Auto) 8.76 H (1.8-7.7) 10^3/u L Lymph # (Auto) 1.7 (0.8-4.8) 10^3/u L [place] # (Auto) 1.0 H (0.2-0.9) 10^3/u L Eos # (Auto) 0.1 (0.0-0.8) 10^3/u L Baso # (Auto) 0.1 (0.0-0.1) 10^3/u L Nucleated RBC % (a uto) 0 % Nucleated RBCs # 0.0 /100WBC Sodium 131 L (136-145) mmol/L Potassium 3.3 L (3.5-5.1) mmol/L Chloride 91 L (98-107) mmol/L Carbon Dioxide 25 (22-29) mmol/L Anion Gap 18.3 (5-19) BUN 20 (6-20) mg/dL Creatinine 1.7 H (0.7-1.2) mg/dL GFR Calculation 42.2 L (90-130) mL/min Glucose 181 H (65-115) mg/dL Calculated Osmolal ity 279 L (285-295) mOsm/k g Lactate 1.3 (0.5-2.2) mmol/L Calcium 9.3 (8.5-10.5) mg/dL Total Bilirubin 0.5 (0.15-1.2) mg/dL AST 25 (0-40) U/L ALT 23 (0-41) U/L Alkaline Phosphata se 48 (40-130) IU/L Total Protein 8.6 (6.6-8.7) g/dL Albumin 4.8 (3.5-5.2) g/dL Globulin 3.8 (1.3-4.6) g/dL Lipase 14 (13-60) U/L Imaging Data ^: CT Abd/Pel: Radiologist's impression: Reason: [place] [address] CT Scan Report Signed Patient: Ben Nielsen Unit #: [id number] : 1965 Age/Sex: 54 / M ADM Date: 11/28/19 Loc: ER Room/Bed: Attending Dr: Ordering Provider/Ordering MD: Carlota Arriaga MD Date of Service: 11/28/19 Procedure(s): CT abdomen pelvis w con* [id number] Accession Number(s): [id number] Report Number: [id number] PROCEDURE INFORMATION: Exam: CT Abdomen And Pelvis With Contrast Exam date and time: 11/28/2019 3:43 AM Age: 54 years old Clinical indication: Abdominal pain; Generalized; Prior surgery; Surgery type: Cholecystectomy, hernia repair; Additional info: Abd pain TECHNIQUE: Imaging protocol: Computed tomography of the abdomen and pelvis with intravenous contrast. Radiation optimization: All CT scans at this facility use at least one of these dose optimization techniques: automated exposure control; mA and/or kV adjustment per patient size (includes targeted exams where dose is matched to clinical indication); or iterative reconstruction. Contrast material: VISI; Contrast volume: 95 ml; Contrast route: INTRAVENOUS (IV); COMPARISON: CT abdomen pelvis wo con [id number] 04/08/2019 12:22 PM RADIATION DOSE METRICS: Total DLP (mGy-cm): 1785.35 FINDINGS: Liver: Hepatomegaly. Fatty liver. Indeterminate hyperdense lesion in the posteroinferior right hepatic lobe measuring 11 mm. Gallbladder and bile ducts: Status post cholecystectomy. Pancreas: No ductal dilation. Spleen: No splenomegaly. Adrenals: No mass. Kidneys and ureters: No hydronephrosis. Stomach and bowel: No obstruction. No mucosal thickening. Appendix: The appendix is not identified. Intraperitoneal space: No free air. No significant fluid collection. Vasculature: No abdominal aortic aneurysm. Lymph nodes: No enlarged lymph nodes. Bladder: Unremarkable as visualized. Reproductive: Unremarkable as visualized. Bones/joints: Unremarkable. No acute fracture. Soft tissues: Unremarkable. CT/CT abdomen pelvis w con* [id number] IMPRESSION: 1. No acute findings. 2. Indeterminate hyperdense lesion in the posteroinferior right hepatic lobe measuring 11 mm. Recommend further evaluation with liver MRI. EKG Data ^: EKG 1: Attestation: I personally reviewed and interpreted this EKG as follows: EKG interpretation date: 11/28/19 EKG interpretation time: 05:37 Interpretation: nsr hr [address] or t wave abnormalities qrs 93 qtc 367 Discharge Plan Discharge Patient Disposition: Home Clinical Impression: Nausea Abdominal pain Qualifiers: Abdominal location: generalized Qualified Code(s): R10.84 - Generalized abdominal pain Condition: Stable Prescriptions: New Reglan 10 mg tablet 10 mg PO Q6H PRN (Reason: nausea and vomiting) Qty: 20 RF: 0 No Action aspirin 81 mg tablet,delayed release (DR/EC) 162 mg PO BEDTIME RF: 0 quetiapine [Seroquel] 50 mg tablet 50 mg PO BEDTIME Qty: 90 RF: 2 sertraline [Zoloft] 50 mg tablet 50 mg PO DAILY Qty: 90 RF: 2 methylprednisolone acetate [Depo-Medrol] 80 mg/mL suspension 80 mg Infiltration ONCE Qty: 1 RF: 0 sodium chloride 0.9 % Solution 10 ml epidural ONCE Qty: 1 RF: 0 bupivacaine (PF) 0.25 % (2.5 mg/mL) solution 2 ml epidural ONCE Qty: 1 RF: 0 lidocaine (PF) 10 mg/mL (1 %) solution 10 mg SUBCUT ONCE Qty: 1 RF: 0 melatonin 3 mg tablet 3 mg PO BEDTIME PRN (Reason: sleep) Qty: 30 RF: 3 nitroglycerin 0.4 mg tablet, sublingual 0.4 mg SUBLINGUAL ONCE PRN (Reason: Chest Pain) RF: 0 furosemide 40 mg tablet 40 mg PO BID RF: 0 bupivacaine (PF) 0.25 % (2.5 mg/mL) solution 1 ml INTRA-DARRIN ONCE Qty: 1 RF: 0 lidocaine (PF) 10 mg/mL (1 %) solution 1 ml INTRA-DARRIN ONCE Qty: 1 RF: 0 gabapentin 800 mg tablet 800 mg PO TID Qty: 90 RF: 0 tramadol 300 mg tablet extended release 24 hr 300 mg PO DAILY 30 Days Qty: 30 RF: 0 tizanidine 4 mg tablet 4 mg PO TID PRN (Reason: muscle spasticity) Qty: 90 RF: 0 hydrocodone-acetaminophen 10-325 mg tablet 1 tab PO BID PRN (Reason: pain, severe) 30 Days Qty: 45 RF: 0 potassium chloride 20 mEq tablet extended release 20 meq PO DAILY 30 Days Qty: 30 RF: 6 metoprolol tartrate 25 mg tablet 25 mg PO BID Qty: 180 RF: 3 losartan 50 mg tablet 50 mg PO DAILY Qty: 90 RF: 1 fenofibrate nanocrystallized [Tricor] 145 mg tablet 145 mg PO DAILY Qty: 30 RF: 3 metolazone 2.5 mg tablet See Rx Instructions .ROUTE .COMPLEX Qty: 30 RF: 2 atorvastatin [Lipitor] 10 mg tablet 10 mg PO DAILY Qty: 30 RF: 3 Janumet 50-500 mg tablet 1 tab PO BID Qty: 60 RF: 3 levothyroxine 100 mcg tablet 100 mcg PO DAILY Qty: 7 RF: 0 albuterol sulfate 90 mcg/actuation HFA aerosol inhaler 2 inh INHALATION Q4H PRN (Reason: shortness of breath or wheezing) Qty: 18 RF: 0 Discharge Orders: Discharge Order (Routine); Ordered 11/28/19 Ordered By: Carlota Arriaga Referrals: Qi Muhammad DO [Primary Care Provider] - 1-3 days Discharge Diet: Advance as tolerated Discharge Activity: Resume usual activity Patient Instructions: Abdominal Pain (ED) Coding Level of Care Code ED Collision Mechanic for Chg Fwd Exam Comprehensive
--- NOTE | 2019-11-28 02:54 | CTR_ITS ---
PROCEDURE INFORMATION: Exam: CT Abdomen And Pelvis With Contrast Exam date and time: 11/28/2019 3:43 AM Age: 54 years old Clinical indication: Abdominal pain; Generalized; Prior surgery; Surgery type: Cholecystectomy, hernia repair; Additional info: Abd pain TECHNIQUE: Imaging protocol: Computed tomography of the abdomen and pelvis with intravenous contrast. Radiation optimization: All CT scans at this facility use at least one of these dose optimization techniques: automated exposure control; mA and/or kV adjustment per patient size (includes targeted exams where dose is matched to clinical indication); or iterative reconstruction. Contrast material: VISI; Contrast volume: 95 ml; Contrast route: INTRAVENOUS (IV); COMPARISON: CT abdomen pelvis wo con [id number] 04/08/2019 12:22 PM RADIATION DOSE METRICS: Total DLP (mGy-cm): 1785.35 FINDINGS: Liver: Hepatomegaly. Fatty liver. Indeterminate hyperdense lesion in the posteroinferior right hepatic lobe measuring 11 mm. Gallbladder and bile ducts: Status post cholecystectomy. Pancreas: No ductal dilation. Spleen: No splenomegaly. Adrenals: No mass. Kidneys and ureters: No hydronephrosis. Stomach and bowel: No obstruction. No mucosal thickening. Appendix: The appendix is not identified. Intraperitoneal space: No free air. No significant fluid collection. Vasculature: No abdominal aortic aneurysm. Lymph nodes: No enlarged lymph nodes. Bladder: Unremarkable as visualized. Reproductive: Unremarkable as visualized. Bones/joints: Unremarkable. No acute fracture. Soft tissues: Unremarkable. CT/CT abdomen pelvis w con* [id number] IMPRESSION: 1. No acute findings. 2. Indeterminate hyperdense lesion in the posteroinferior right hepatic lobe measuring 11 mm. Recommend further evaluation with liver MRI. Radiation Dose CTDIVOL = (mGy): DLP = 1785.35 (mGy-cm)
[2019-11-28] MEDS: ondansetron 2 mg/ML SDV 2 mL 4 MG IVP (02:57)
[2019-11-28] MEDS: morphine 4 mg/mL SDV 1 mL IVP (02:57)
[2019-11-28 02:58] LABS: Basophils # 0.1 10^3/uL (0.0-0.1); Basophils % 0.4 %; Eosinophils # 0.1 10^3/uL (0.0-0.8); Hematocrit 37.6 % (42.0-52.0); Hemoglobin 12.4 g/dL (11.7-16.6); Lymphocytes # 1.7 10^3/uL (0.8-4.8); Lymphocytes % 14.2 %; Mean Corpuscular Volume 88.1 fL (80-94); Mean Platelet Volume 10.5 fL (7.4-10.4); Monocytes % 8.6 %; Neutrophils # 8.76 10^3/uL (1.8-7.7); Neutrophils % 75.5 %; Nucleated Red Blood Cells % 0 %; Platelet Count 382 10^3/cmm (130-400); Red Blood Count 4.27 10^6/uL (4.1-5.3); Red Cell Distribution Width 12.5 % (12.1-15.1); White Blood Count 11.6 10^3/uL (4.0-10.0)
[2019-11-28 03:16] LABS: Alanine Aminotransferase 23 U/L (0-41); Albumin Level 4.8 g/dL (3.5-5.2); Alkaline Phosphatase 48 IU/L (40-130); Aspartate Amino Transferase 25 U/L (0-40); Blood Urea Nitrogen 20 mg/dL (6-20); Calcium 9.3 mg/dL (8.5-10.5); Carbon Dioxide 25 mmol/L (22-29); Chloride 91 mmol/L (98-107); Creatinine Clr Calc Pharmacy 64.1743; Globulin 3.8 g/dL (1.3-4.6); Glomerular Filtration Rate 42.2 mL/min (90-130); Glucose 181 mg/dL (65-115); Lipase 14 U/L (13-60); Osmolality Calculated 279 mOsm/kg (285-295); Sodium 131 mmol/L (136-145); Total Bilirubin 0.5 mg/dL (0.15-1.2); Total Protein 8.6 g/dL (6.6-8.7)
[2019-11-28 03:20] LABS: Anion Gap 18.3 (5-19)
[2019-11-28 03:21] LABS: Potassium 3.3 mmol/L (3.5-5.1)
[2019-11-28] MEDS: iodixanol 320 mg/mL 100mL Btl IV (03:50)
[2019-11-28] MEDS: HYDROmorphone 1 mg/mL INJ 1 mL IVP (04:36)
[2019-11-28 05:29] LABS: Lactate (Lactic Acid level) 1.3 mmol/L (0.5-2.2)
--- NOTE | 2019-11-28 05:31 | ECG_ITS ---
[facility] Test Date: 2019-11-28 Pat Name: Ben Nielsen Department: Room: Gender: Male Family Counselor: : 1965 Requested By: Carlota Arriaga Order Number: [id number] Zenia MD: Eduardo Wallace M.D. Measurements Intervals [place] Rate: 72 P: 56 ID: [id number] QRS: 35 QRSD: 93 T: 74 QT: 343 QTc: 376 Interpretive Statements SINUS RHYTHM POSSIBLE LEFT ATRIAL ENLARGEMENT [-0.1mV P WAVE IN V1/V2] NONSPECIFIC T-WAVE ABNORMALITY Compared to ECG 09/24/2019 22:00:15 T-wave abnormality now present Sinus bradycardia no longer present Electronically Signed On 11-28-2019 17:35:26 CDT by Eduardo Wallace M.D. [id number]
[2019-11-28] MEDS: sodium chloride 0.9% 1,000 ML 999 ML IV (05:45)
[2019-11-28] MEDS: metoclopramide 5 mg/mL SDV 2 mL IVP ×2 (05:46→05:48)
[2019-11-28] MEDS: diphenhydrAMINE 50 mg/mL SDV 1mL 25 MG IVP ×2 (05:47→05:48)
== END 2019-11-28 08:14 | disposition home or self-care (01) ==
PROVIDERS: Emergency Provider Emergency Medicine; PCP Family Medicine
DX: R10.84 Generalized abdominal pain (principal); R11.0 Nausea; Z79.82 Long term (current) use of aspirin; I11.0 Hypertensive heart disease with heart failure; I50.30 Unspecified diastolic (congestive) heart failure; E11.9 Type 2 diabetes mellitus without complications; I25.2 Old myocardial infarction; Z86.73 Personal history of transient ischemic attack (TIA), and cerebral infarction without residual deficits; Z87.891 Personal history of nicotine dependence
CPT/HCPCS: 12345; 74018; 74177; 80053; 83605; 83690; 85025; 93005; 96365; 96375; 99283; 99284; J1170; J1200; J2270; J2405; J2765; J7030; Q9967

== ENCOUNTER → 2019-12-02 09:08 | Outpatient (BNVA) | payer SELFPAY | PROVIDERS: PCP Family Medicine; Visit Provider Family Medicine | DX: E03.9 Hypothyroidism, unspecified (principal) | CPT/HCPCS: 84443 ==

== ENCOUNTER 2019-12-04 14:03 | Inpatient (IN) | payer SELFPAY ==
[2019-12-04] VITALS (8 sets, daily range): BP systolic 111–135; BP diastolic 52–82; PULSE 68–90; RESP 16–20; TEMP 36.7–37.2; O2SAT 96–100; BMI 36.0
[2019-12-04 15:34] LABS: Add Urine Microscopic? NO
[2019-12-04 15:37] LABS: Bilirubin Urine Neg (Negative); Blood Urine Neg (Negative); Glucose Urine UA 2+ (Normal); Ketones Urine Negative (Negative); Leukocyte Esterase Urine Negative (Negative); Nitrate Urine Negative (Negative); Protein Urine Neg (Negative); Urine Appearance Clear (CLEAR); Urine Color Yellow (Yellow); Urobilinogen Urine Neg (Negative); pH Urine 5 (5-7)
[2019-12-04 15:54] LABS: Basophils % 0.3 %; Eosinophils % 0.2 %; Hematocrit 22.8 % (42.0-52.0); Hemoglobin 7.2 g/dL (11.7-16.6); Lymphocytes # 2.4 10^3/uL (0.8-4.8); Lymphocytes % 21.1 %; Mean Corpuscular HGB Conc 31.6 g/dL (30.0-36.0); Mean Corpuscular Hemoglobin 29.4 pg (28.0-34.0); Mean Corpuscular Volume 93.1 fL (80-94); Mean Platelet Volume 10.4 fL (7.4-10.4); Monocytes # 0.9 10^3/uL (0.2-0.9); Monocytes % 7.8 %; Neutrophils # 7.91 10^3/uL (1.8-7.7); Neutrophils % 69.9 %; Nucleated Red Blood Cells % 0 %; Platelet Count 387 10^3/cmm (130-400); Red Blood Count 2.45 10^6/uL (4.1-5.3); Red Cell Distribution Width 13.2 % (12.1-15.1); White Blood Count 11.3 10^3/uL (4.0-10.0)
[2019-12-04 16:14] LABS: Alanine Aminotransferase 19 U/L (0-41); Alkaline Phosphatase 33 IU/L (40-130); Anion Gap 17.4 (5-19); Aspartate Amino Transferase 23 U/L (0-40); Blood Urea Nitrogen 40 mg/dL (6-20); Carbon Dioxide 22 mmol/L (22-29); Chloride 102 mmol/L (98-107); Globulin 2.3 g/dL (1.3-4.6); Glomerular Filtration Rate 69.8 mL/min (90-130); Glucose 156 mg/dL (65-115); Osmolality Calculated 297 mOsm/kg (285-295); Potassium 4.4 mmol/L (3.5-5.1); Sodium 137 mmol/L (136-145); Total Bilirubin 0.2 mg/dL (0.15-1.2); Total Protein 6.3 g/dL (6.6-8.7)
--- NOTE | 2019-12-04 17:23 | PC.NURSE ---
feeling lights headed, dizzy, nausea, in pain
--- NOTE | 2019-12-04 17:40 | PC.NURSE ---
blood glucose 123
[2019-12-04 17:46] LABS: Glucose Point of Care 123 mg/dL (70-110)
--- NOTE | 2019-12-04 17:56 | ED_ITS ---
Documented by User: STONEY Christopher 12/05/19 00:32 HPI - Abdominal Pain General: Chief Complaint: Abdominal Pain Stated Complaint: DIZZY/DARK STOOLS Time Seen by Provider: 12/04/19 17:56 History of Present Illness: HPI narrative: Patient is a 54-year-old male who comes to the ED with abdominal pain dizziness fatigue and black stools. Past medical history of heart failure, diabetes, hypothyroidism, obstructive sleep apnea. Patient was seen here in the ED for a complaint of constipation on [address] of the abdomen was performed and showed no acute findings. There was a note that lesion was seen in the liver and that patient should talk with PCP imaging of an MRI to further evaluate lesion. Today patient said he has been taking [id number] meds to help with his constipation and says he started developing abdominal pain and had a bowel movement. He described the stool as black pasty. Patient also has been feeling very fatigued the past couple days and dizzy. He also has abdominal pain that he rates as a 9 out of 10. He describes the area of abdominal pain is in the lower abdomen bilaterally. Associated Symptoms: Reports diarrhea (black paste like stool), melena and nausea; Denies chills, constipation (was constipated about a week ago, but has since resolved), dysuria, fever(s), hematochezia, hematuria and vomiting Review of Systems Const: Denies: fever(s), chills or fatigue Eyes: Denies: change in vision or eye discomfort ENMT: Denies: throat pain, odynophagia, nasal discharge or nasal congestion Card: Denies: chest pain, palpitations, edema, swelling of feet/ankles, dyspnea on exertion or orthopnea Resp: Denies: dyspnea, productive cough or non-productive cough GI: Reports: abdominal pain, nausea, diarrhea (black paste like stool) and melena; Denies: vomiting, constipation (was constipated about a week ago, but has since resolved) or hematochezia : Denies: flank pain, difficulty urinating, dysuria or hematuria Musc: Denies: neck pain, back pain or extremity swelling Skin/Breast: Denies: rash or new lesions Neuro: Denies: headache(s), numbness in extremities or weakness in extremities [facility] ED PFSH: Medical History Anxiety with somatic features Chewing tobacco nicotine dependence Chronic low back pain Chronic neck pain Congestive heart failure Diabetes Diastolic heart failure Essential (primary) hypertension History of IA (myocardial infarction) History of TIA (transient ischemic attack) Hypertriglyceridemia Hypothyroidism Internal hemorrhoids Left ventricular hypertrophy Major depressive disorder, recurrent, moderate Melanotic stools MRSA (methicillin resistant Staphylococcus aureus) Opioid contract exists Pain management contract signed Persistent moderate somatic symptom disorder with predominant pain Umbilical hernia Surgical History H/O neck surgery S/P appendectomy S/P cholecystectomy S/P hernia repair Family History Mother CHF (congestive heart failure) Thyroid disease Sister Thyroid disease Father A-fib Brother Heart disease HX STENTS Other CAD (coronary artery disease) Diabetes Social History Smoking and tobacco status: former smoker Quit status (tobacco): has quit using tobacco Year quit tobacco: 2018 - 1.5 PPD x 17 Years Second hand smoke exposure: Yes Alcohol intake: current Alcohol intake frequency: holidays/special occasions only Alcohol type: beer Lives independently: Yes Household members: spouse Marital status: Current occupational status: disabled History of recent travel: No Current gender identity: Male Physical Exam Const: COMMON NORMALS: patient oriented x3 and alert GENERAL APPEARANCE: cooperative; not comfortable (Patient appears uncomfortable due to abdominal pain.) HENMT: COMMON NORMALS: normocephalic HEAD & SCALP: normocephalic MOUTH: Normal oral and palatal mucosa present THROAT: posterior oropharynx normal and uvula midline Neck/C-Spine: COMMON NORMALS: supple GENERAL: Yes normal visual inspection Resp: COMMON NORMALS: normal respiratory effort, No retractions, No use of accessory muscles and clear to auscultation bilaterally AUSCULTATION: clear to auscultation bilaterally Cardio: COMMON NORMALS: regular rate, regular rhythm, S1 normal heart sound present, S2 normal heart sound present, No gallops present (Cardio), No clicks present (Cardio), No murmurs present (Cardio) and Peripheral pulses 2+ throughout RATE: regular rate RHYTHM: regular rhythm HEART SOUNDS: S1 normal heart sound present and S2 normal heart sound present PERIPHERAL PULSES: Peripheral pulses 2+ throughout GI: COMMON NORMALS: Normal to inspection, nondistended, normoactive bowel sounds present, Soft to palpation and no masses INSPECTION: Yes central obesity PALPATION: Yes Soft to palpation and Yes Tenderness to palpation present (GI) Details: other (Epigastric area tenderness.) : COMMON NORMALS: Yes no CVA tenderness BLADDER/KIDNEY EXAM: Yes no CVA tenderness Back/Pelvis: COMMON NORMALS: no CVA tenderness Extremity: COMMON NORMALS: normal to inspection and no pedal edema Neuro: COMMON NORMALS: patient oriented x3 SENSORIUM/ORIENTATION: Yes alert GAIT: Yes Normal gait present Skin: COMMON NORMALS: no rashes or lesions noted GENERAL SKIN EXAM: no rashes or lesions noted and dry skin Procedures Stool Hemoccult Procedural Steps Taken: stool placed in appropriate test area, developer placed on stool and control areas and controls appropriately positive and negative Hemoccult result: positive Additional Comments: Digital rectal exam was performed to obtain stool sample?stool was black in color and liquidy. No gross red blood seen. Course Vital Signs: Vital signs: Vital Signs Temperature 98.6 F 12/05/19 05:39 Pulse Rate 72 12/05/19 05:39 Respiratory Rate 18 12/05/19 05:39 Blood Pressure 109/61 12/05/19 05:39 Pulse Oximetry 97 12/05/19 05:39 MDM - Abdominal Pain MDM Narrative: Medical decision making narrative: Patient is a 54-year-old male who comes to the ED with abdominal pain, dizziness, fatigue and black stool. Upon exam patient had epigastric tenderness. EKG showed normal sinus rhythm and troponins were negative. White blood cell count 11.3 and hemoglobin 7.2. Rest of CMP and UA were unremarkable. I ordered 2 units of blood for transfusion. Lactic 2.2, and H. pylori negative. Stool Hemoccult test was positive for blood. CT of the abdomen showed no acute findings. I discussed patient case with Dr. Mathews and he patient needs to be admitted. He then took over patient care and admission of patient to hospitalist. Lab Data: Attestation: I reviewed the patient's lab results. Labs: Lab Results 12/04/19 12/04/19 12/04/19 Range/Units 15:26 15:38 15:38 WBC 11.3 H (4.0-10.0) 10^3/ uL RBC 2.45 L (4.1-5.3) 10^6/u L Hgb 7.2 L (11.7-16.6) g/dL Hct 22.8 L (42.0-52.0) % MCV 93.1 (80-94) fL MCH 29.4 (28.0-34.0) pg MCHC 31.6 (30.0-36.0) g/dL RDW 13.2 (12.1-15.1) % Plt Count 387 (130-400) 10^3/c mm MPV 10.4 (7.4-10.4) fL Neut % (Auto) 69.9 % Lymph % (Auto) 21.1 % [place] % (Auto) 7.8 % Eos % (Auto) 0.2 % Baso % (Auto) 0.3 % Neut # (Auto) 7.91 H (1.8-7.7) 10^3/u L Lymph # (Auto) 2.4 (0.8-4.8) 10^3/u L [place] # (Auto) 0.9 (0.2-0.9) 10^3/u L Eos # (Auto) 0.0 (0.0-0.8) 10^3/u L Baso # (Auto) 0.0 (0.0-0.1) 10^3/u L Nucleated RBC % (a uto) 0 % Nucleated RBCs # 0.0 /100WBC Sodium 137 (136-145) mmol/L Potassium 4.4 (3.5-5.1) mmol/L Chloride 102 (98-107) mmol/L Carbon Dioxide 22 (22-29) mmol/L Anion Gap 17.4 (5-19) BUN 40 H (6-20) mg/dL Creatinine 1.1 (0.7-1.2) mg/dL GFR Calculation 69.8 L (90-130) mL/min Glucose 156 H (65-115) mg/dL POC Glucose (70-110) mg/dL Calculated Osmolal ity 297 H (285-295) mOsm/k g Lactic Acid (0.5-2.2) mmol/L Lactic Acid (Sepsi s) (0.5-2.2) mmol/L Calcium 9.0 (8.5-10.5) mg/dL Total Bilirubin 0.2 (0.15-1.2) mg/dL AST 23 (0-40) U/L ALT 19 (0-41) U/L Alkaline Phosphata se 33 L (40-130) IU/L Troponin T Baselin e (0-15) ng/L Troponin T 120 Min [place] (0-15) ng/L Delta Troponin T (0-10) ABS# NT-Pro-B Natriuret Pep (0-125) pg/mL Total Protein 6.3 L (6.6-8.7) g/dL Albumin 4.0 (3.5-5.2) g/dL Globulin 2.3 (1.3-4.6) g/dL Urine Color Yellow (Yellow) Urine Appearance Clear (CLEAR) Urine pH 5 (5-7) Ur Specific Gravit y 1.020 (1.005-1.030) Urine Protein Neg (Negative) Urine Glucose (UA) 2+ (Normal) Urine Ketones Negative (Negative) Urine Blood Neg (Negative) Urine Nitrate Negative (Negative) Urine Bilirubin Neg (Negative) Urine Urobilinogen Neg (Negative) mg/dL Ur Leukocyte Camille ase Negative (Negative) H. pylori IgG Anti body (Negative) Blood Type Rho(D) Type Antibody Screen Crossmatch 12/04/19 12/04/19 12/04/19 Range/Units 15:38 15:38 17:40 WBC (4.0-10.0) 10^3/ uL RBC (4.1-5.3) 10^6/u L Hgb (11.7-16.6) g/dL Hct (42.0-52.0) % MCV (80-94) fL MCH (28.0-34.0) pg MCHC (30.0-36.0) g/dL RDW (12.1-15.1) % Plt Count (130-400) 10^3/c mm MPV (7.4-10.4) fL Neut % (Auto) % Lymph % (Auto) % [place] % (Auto) % Eos % (Auto) % Baso % (Auto) % Neut # (Auto) (1.8-7.7) 10^3/u L Lymph # (Auto) (0.8-4.8) 10^3/u L [place] # (Auto) (0.2-0.9) 10^3/u L Eos # (Auto) (0.0-0.8) 10^3/u L Baso # (Auto) (0.0-0.1) 10^3/u L Nucleated RBC % (a uto) % Nucleated RBCs # /100WBC Sodium (136-145) mmol/L Potassium (3.5-5.1) mmol/L Chloride (98-107) mmol/L Carbon Dioxide (22-29) mmol/L Anion Gap (5-19) BUN (6-20) mg/dL Creatinine (0.7-1.2) mg/dL GFR Calculation (90-130) mL/min Glucose (65-115) mg/dL POC Glucose 123 (70-110) mg/dL Calculated Osmolal ity (285-295) mOsm/k g Lactic Acid (0.5-2.2) mmol/L Lactic Acid (Sepsi s) (0.5-2.2) mmol/L Calcium (8.5-10.5) mg/dL Total Bilirubin (0.15-1.2) mg/dL AST (0-40) U/L ALT (0-41) U/L Alkaline Phosphata se (40-130) IU/L Troponin T Baselin e (0-15) ng/L Troponin T 120 Min [place] (0-15) ng/L Delta Troponin T (0-10) ABS# NT-Pro-B Natriuret Pep 42 (0-125) pg/mL Total Protein (6.6-8.7) g/dL Albumin (3.5-5.2) g/dL Globulin (1.3-4.6) g/dL Urine Color (Yellow) Urine Appearance (CLEAR) Urine pH (5-7) Ur Specific Gravit y (1.005-1.030) Urine Protein (Negative) Urine Glucose (UA) (Normal) Urine Ketones (Negative) Urine Blood (Negative) Urine Nitrate (Negative) Urine Bilirubin (Negative) Urine Urobilinogen (Negative) mg/dL Ur Leukocyte Camille ase (Negative) H. pylori IgG Anti body Negative (Negative) Blood Type Rho(D) Type Antibody Screen Crossmatch 12/04/19 12/04/19 12/04/19 Range/Units 18:11 18:11 20:28 WBC (4.0-10.0) 10^3/ uL RBC (4.1-5.3) 10^6/u L Hgb (11.7-16.6) g/dL Hct (42.0-52.0) % MCV (80-94) fL MCH (28.0-34.0) pg MCHC (30.0-36.0) g/dL RDW (12.1-15.1) % Plt Count (130-400) 10^3/c mm MPV (7.4-10.4) fL Neut % (Auto) % Lymph % (Auto) % [place] % (Auto) % Eos % (Auto) % Baso % (Auto) % Neut # (Auto) (1.8-7.7) 10^3/u L Lymph # (Auto) (0.8-4.8) 10^3/u L [place] # (Auto) (0.2-0.9) 10^3/u L Eos # (Auto) (0.0-0.8) 10^3/u L Baso # (Auto) (0.0-0.1) 10^3/u L Nucleated RBC % (a uto) % Nucleated RBCs # /100WBC Sodium (136-145) mmol/L Potassium (3.5-5.1) mmol/L Chloride (98-107) mmol/L Carbon Dioxide (22-29) mmol/L Anion Gap (5-19) BUN (6-20) mg/dL Creatinine (0.7-1.2) mg/dL GFR Calculation (90-130) mL/min Glucose (65-115) mg/dL POC Glucose (70-110) mg/dL Calculated Osmolal ity (285-295) mOsm/k g Lactic Acid (0.5-2.2) mmol/L Lactic Acid (Sepsi s) (0.5-2.2) mmol/L Calcium (8.5-10.5) mg/dL Total Bilirubin (0.15-1.2) mg/dL AST (0-40) U/L ALT (0-41) U/L Alkaline Phosphata se (40-130) IU/L Troponin T Baselin e 18 H (0-15) ng/L Troponin T 120 Min [place] 19.62 H (0-15) ng/L Delta Troponin T 1.62 (0-10) ABS# NT-Pro-B Natriuret Pep (0-125) pg/mL Total Protein (6.6-8.7) g/dL Albumin (3.5-5.2) g/dL Globulin (1.3-4.6) g/dL Urine Color (Yellow) Urine Appearance (CLEAR) Urine pH (5-7) Ur Specific Gravit y (1.005-1.030) Urine Protein (Negative) Urine Glucose (UA) (Normal) Urine Ketones (Negative) Urine Blood (Negative) Urine Nitrate (Negative) Urine Bilirubin (Negative) Urine Urobilinogen (Negative) mg/dL Ur Leukocyte Camille ase (Negative) H. pylori IgG Anti body (Negative) Blood Type O Positive Rho(D) Type Positive Antibody Screen Negative Crossmatch See Detail 12/04/19 12/04/19 Range/Units 20:28 23:22 WBC (4.0-10.0) 10^3/ uL RBC (4.1-5.3) 10^6/u L Hgb (11.7-16.6) g/dL Hct (42.0-52.0) % MCV (80-94) fL MCH (28.0-34.0) pg MCHC (30.0-36.0) g/dL RDW (12.1-15.1) % Plt Count (130-400) 10^3/c mm MPV (7.4-10.4) fL Neut % (Auto) % Lymph % (Auto) % [place] % (Auto) % Eos % (Auto) % Baso % (Auto) % Neut # (Auto) (1.8-7.7) 10^3/u L Lymph # (Auto) (0.8-4.8) 10^3/u L [place] # (Auto) (0.2-0.9) 10^3/u L Eos # (Auto) (0.0-0.8) 10^3/u L Baso # (Auto) (0.0-0.1) 10^3/u L Nucleated RBC % (a uto) % Nucleated RBCs # /100WBC Sodium (136-145) mmol/L Potassium (3.5-5.1) mmol/L Chloride (98-107) mmol/L Carbon Dioxide (22-29) mmol/L Anion Gap (5-19) BUN (6-20) mg/dL Creatinine (0.7-1.2) mg/dL GFR Calculation (90-130) mL/min Glucose (65-115) mg/dL POC Glucose (70-110) mg/dL Calculated Osmolal ity (285-295) mOsm/k g Lactic Acid 2.2 (0.5-2.2) mmol/L Lactic Acid (Sepsi s) 1.8 (0.5-2.2) mmol/L Calcium (8.5-10.5) mg/dL Total Bilirubin (0.15-1.2) mg/dL AST (0-40) U/L ALT (0-41) U/L Alkaline Phosphata se (40-130) IU/L Troponin T Baselin e (0-15) ng/L Troponin T 120 Min [place] (0-15) ng/L Delta Troponin T (0-10) ABS# NT-Pro-B Natriuret Pep (0-125) pg/mL Total Protein (6.6-8.7) g/dL Albumin (3.5-5.2) g/dL Globulin (1.3-4.6) g/dL Urine Color (Yellow) Urine Appearance (CLEAR) Urine pH (5-7) Ur Specific Gravit y (1.005-1.030) Urine Protein (Negative) Urine Glucose (UA) (Normal) Urine Ketones (Negative) Urine Blood (Negative) Urine Nitrate (Negative) Urine Bilirubin (Negative) Urine Urobilinogen (Negative) mg/dL Ur Leukocyte Camille ase (Negative) H. pylori IgG Anti body (Negative) Blood Type Rho(D) Type Antibody Screen Crossmatch Imaging Data ^: CT Abd/Pel: Attestation: I personally reviewed and interpreted this imaging study as follows: Radiologist's impression: [address] [address] [address] Scan Report Signed Patient: Ben Nielsen Unit #: [id number] : 1965 Age/Sex: 54 / M ADM Date: 12/04/19 Loc: ER Room/Bed: Attending Dr: Ordering Provider/Ordering MD: Ant Delaney Date of Service: 12/04/19 Procedure(s): CT abdomen pelvis w con* [id number] Accession Number(s): [id number] Report Number: [id number] PROCEDURE INFORMATION: Exam: CT Abdomen And Pelvis With Contrast Exam date and time: 12/04/2019 7:07 PM Age: 54 years old Clinical indication: Abdominal pain; Generalized; Prior surgery; Surgery date: 6+ months; Surgery type: Appy, gb, hernia; Patient HX: C/O abd pain w dark stool and low h h; Additional info: Abdom pain, black stool TECHNIQUE: Imaging protocol: Computed tomography of the abdomen and pelvis with intravenous contrast. Radiation optimization: All CT scans at this facility use at least one of these dose optimization techniques: automated exposure control; mA and/or kV adjustment per patient size (includes targeted exams where dose is matched to clinical indication); or iterative reconstruction. Contrast material: OMNI 300; Contrast volume: 95 ml; Contrast route: INTRAVENOUS (IV); COMPARISON: CT abdomen pelvis w con* [id number] 11/28/2019 3:39 AM RADIATION DOSE METRICS: Total DLP (mGy-cm): 1642.31 FINDINGS: Liver: The liver is mildly enlarged and demonstrates fatty infiltration changes. Gallbladder and bile ducts: The gallbladder has been removed. No biliary ductal dilatation. Pancreas: Normal. No ductal dilation. Spleen: Normal. No splenomegaly. Adrenals: Normal. No mass. Kidneys and ureters: Normal. No hydronephrosis. Stomach and bowel: Unremarkable. No obstruction. No mucosal thickening. Appendix: The appendix has been removed. Intraperitoneal space: Unremarkable. No free air. No significant fluid collection. Vasculature: Unremarkable. No abdominal aortic aneurysm. Lymph nodes: Unremarkable. No enlarged lymph nodes. Urinary bladder: Unremarkable as visualized. Reproductive: Unremarkable as visualized. Bones/joints: Unremarkable. No acute fracture. Soft tissues: Unremarkable. CT/CT abdomen pelvis w con* [id number] IMPRESSION: No acute abnormality is seen in the abdomen or pelvis. Mild hepatomegaly and hepatic steatosis are noted. Radiation Dose CTDIVOL = (mGy): DLP = 1642.31 (mGy-cm) Dictated By: Bryan Jean MD Signed By: Bryan Jean MD Signed Date/Time: 1954 DD/ 52 EKG Data ^: EKG 1: Attestation: I personally reviewed and interpreted this EKG as follows: EKG interpretation date: 12/04/19 Interpretation: Normal sinus rhythm, 72 bpm, no ST segment elevation or depression seen. EKG 2: Attestation: I personally reviewed and interpreted this EKG as follows: EKG interpretation date: 12/04/19 EKG interpretation time: 20:45 Interpretation: 2-hour EKG?normal sinus rhythm, 83 bpm, no ST segment elevation or depression seen. Discharge Plan Discharge Patient Disposition: Admitted As Inpatient Admit Provider: Farhat Dennis Clinical Impression: Acute upper gastrointestinal bleeding Anemia Qualifiers: Anemia type: iron deficiency Iron deficiency anemia type: chronic blood loss Qualified Code(s): D50.0 - Iron deficiency anemia secondary to blood loss (chronic) Condition: Stable Discharge Date/Time: 12/05/19 02:12 Coding Level of Care Code ED [facility] for Chg Fwd Exam Comprehensive Documented by User: Don Mathews DO 12/05/19 05:58 HPI - Abdominal Pain General: Chief Complaint: Abdominal Pain Stated Complaint: DIZZY/DARK STOOLS Time Seen by Provider: 12/04/19 17:56 PFSH ED PFSH: Medical History Anxiety with somatic features Chewing tobacco nicotine dependence Chronic low back pain Chronic neck pain Congestive heart failure Diabetes Diastolic heart failure Essential (primary) hypertension History of IA (myocardial infarction) History of TIA (transient ischemic attack) Hypertriglyceridemia Hypothyroidism Internal hemorrhoids Left ventricular hypertrophy Major depressive disorder, recurrent, moderate Melanotic stools MRSA (methicillin resistant Staphylococcus aureus) Opioid contract exists Pain management contract signed Persistent moderate somatic symptom disorder with predominant pain Umbilical hernia Surgical History H/O neck surgery S/P appendectomy S/P cholecystectomy S/P hernia repair Family History Mother CHF (congestive heart failure) Thyroid disease Sister Thyroid disease Father A-fib Brother Heart disease HX STENTS Other CAD (coronary artery disease) Diabetes Social History Smoking and tobacco status: former smoker Quit status (tobacco): has quit using tobacco Year quit tobacco: 2018 - 1.5 PPD x 17 Years Second hand smoke exposure: Yes Alcohol intake: current Alcohol intake frequency: holidays/special occasions only Alcohol type: beer Lives independently: Yes Household members: spouse Marital status: Current occupational status: disabled History of recent travel: No Current gender identity: Male Course Vital Signs: Vital signs: Vital Signs Temperature 98.6 F 12/05/19 05:39 Pulse Rate 72 12/05/19 05:39 Respiratory Rate 18 12/05/19 05:39 Blood Pressure 109/61 12/05/19 05:39 Pulse Oximetry 97 12/05/19 05:39 MDM - Abdominal Pain MDM Narrative: Medical decision making narrative: Patient was originally seen by STONEY Singer?C. I agree with his history, findings, and work-up. This patient is weak, dizzy, and has a low hemoglobin. He will be transfused. His hemoglobin a few days ago was 12, and is now 7. CT did not show an acute GI bleed, but he appears to have one. He will be brought in for transfusion. Lab Data: Labs: Lab Results 12/04/19 12/04/19 12/04/19 Range/Units 15:26 15:38 15:38 WBC 11.3 H (4.0-10.0) 10^3/ uL RBC 2.45 L (4.1-5.3) 10^6/u L Hgb 7.2 L (11.7-16.6) g/dL Hct 22.8 L (42.0-52.0) % MCV 93.1 (80-94) fL MCH 29.4 (28.0-34.0) pg MCHC 31.6 (30.0-36.0) g/dL RDW 13.2 (12.1-15.1) % Plt Count 387 (130-400) 10^3/c mm MPV 10.4 (7.4-10.4) fL Neut % (Auto) 69.9 % Lymph % (Auto) 21.1 % [place] % (Auto) 7.8 % Eos % (Auto) 0.2 % Baso % (Auto) 0.3 % Neut # (Auto) 7.91 H (1.8-7.7) 10^3/u L Lymph # (Auto) 2.4 (0.8-4.8) 10^3/u L [place] # (Auto) 0.9 (0.2-0.9) 10^3/u L Eos # (Auto) 0.0 (0.0-0.8) 10^3/u L Baso # (Auto) 0.0 (0.0-0.1) 10^3/u L Nucleated RBC % (a uto) 0 % Nucleated RBCs # 0.0 /100WBC Sodium 137 (136-145) mmol/L Potassium 4.4 (3.5-5.1) mmol/L Chloride 102 (98-107) mmol/L Carbon Dioxide 22 (22-29) mmol/L Anion Gap 17.4 (5-19) BUN 40 H (6-20) mg/dL Creatinine 1.1 (0.7-1.2) mg/dL GFR Calculation 69.8 L (90-130) mL/min Glucose 156 H (65-115) mg/dL POC Glucose (70-110) mg/dL Calculated Osmolal ity 297 H (285-295) mOsm/k g Lactic Acid (0.5-2.2) mmol/L Lactic Acid (Sepsi s) (0.5-2.2) mmol/L Calcium 9.0 (8.5-10.5) mg/dL Total Bilirubin 0.2 (0.15-1.2) mg/dL AST 23 (0-40) U/L ALT 19 (0-41) U/L Alkaline Phosphata se 33 L (40-130) IU/L Troponin T Baselin e (0-15) ng/L Troponin T 120 Min [place] (0-15) ng/L Delta Troponin T (0-10) ABS# NT-Pro-B Natriuret Pep (0-125) pg/mL Total Protein 6.3 L (6.6-8.7) g/dL Albumin 4.0 (3.5-5.2) g/dL Globulin 2.3 (1.3-4.6) g/dL Urine Color Yellow (Yellow) Urine Appearance Clear (CLEAR) Urine pH 5 (5-7) Ur Specific Gravit y 1.020 (1.005-1.030) Urine Protein Neg (Negative) Urine Glucose (UA) 2+ (Normal) Urine Ketones Negative (Negative) Urine Blood Neg (Negative) Urine Nitrate Negative (Negative) Urine Bilirubin Neg (Negative) Urine Urobilinogen Neg (Negative) mg/dL Ur Leukocyte Camille ase Negative (Negative) H. pylori IgG Anti body (Negative) Blood Type Rho(D) Type Antibody Screen Crossmatch 12/04/19 12/04/19 12/04/19 Range/Units 15:38 15:38 17:40 WBC (4.0-10.0) 10^3/ uL RBC (4.1-5.3) 10^6/u L Hgb (11.7-16.6) g/dL Hct (42.0-52.0) % MCV (80-94) fL MCH (28.0-34.0) pg MCHC (30.0-36.0) g/dL RDW (12.1-15.1) % Plt Count (130-400) 10^3/c mm MPV (7.4-10.4) fL Neut % (Auto) % Lymph % (Auto) % [place] % (Auto) % Eos % (Auto) % Baso % (Auto) % Neut # (Auto) (1.8-7.7) 10^3/u L Lymph # (Auto) (0.8-4.8) 10^3/u L [place] # (Auto) (0.2-0.9) 10^3/u L Eos # (Auto) (0.0-0.8) 10^3/u L Baso # (Auto) (0.0-0.1) 10^3/u L Nucleated RBC % (a uto) % Nucleated RBCs # /100WBC Sodium (136-145) mmol/L Potassium (3.5-5.1) mmol/L Chloride (98-107) mmol/L Carbon Dioxide (22-29) mmol/L Anion Gap (5-19) BUN (6-20) mg/dL Creatinine (0.7-1.2) mg/dL GFR Calculation (90-130) mL/min Glucose (65-115) mg/dL POC Glucose 123 (70-110) mg/dL Calculated Osmolal ity (285-295) mOsm/k g Lactic Acid (0.5-2.2) mmol/L Lactic Acid (Sepsi s) (0.5-2.2) mmol/L Calcium (8.5-10.5) mg/dL Total Bilirubin (0.15-1.2) mg/dL AST (0-40) U/L ALT (0-41) U/L Alkaline Phosphata se (40-130) IU/L Troponin T Baselin e (0-15) ng/L Troponin T 120 Min [place] (0-15) ng/L Delta Troponin T (0-10) ABS# NT-Pro-B Natriuret Pep 42 (0-125) pg/mL Total Protein (6.6-8.7) g/dL Albumin (3.5-5.2) g/dL Globulin (1.3-4.6) g/dL Urine Color (Yellow) Urine Appearance (CLEAR) Urine pH (5-7) Ur Specific Gravit y (1.005-1.030) Urine Protein (Negative) Urine Glucose (UA) (Normal) Urine Ketones (Negative) Urine Blood (Negative) Urine Nitrate (Negative) Urine Bilirubin (Negative) Urine Urobilinogen (Negative) mg/dL Ur Leukocyte Camille ase (Negative) H. pylori IgG Anti body Negative (Negative) Blood Type Rho(D) Type Antibody Screen Crossmatch 12/04/19 12/04/19 12/04/19 Range/Units 18:11 18:11 20:28 WBC (4.0-10.0) 10^3/ uL RBC (4.1-5.3) 10^6/u L Hgb (11.7-16.6) g/dL Hct (42.0-52.0) % MCV (80-94) fL MCH (28.0-34.0) pg MCHC (30.0-36.0) g/dL RDW (12.1-15.1) % Plt Count (130-400) 10^3/c mm MPV (7.4-10.4) fL Neut % (Auto) % Lymph % (Auto) % [place] % (Auto) % Eos % (Auto) % Baso % (Auto) % Neut # (Auto) (1.8-7.7) 10^3/u L Lymph # (Auto) (0.8-4.8) 10^3/u L [place] # (Auto) (0.2-0.9) 10^3/u L Eos # (Auto) (0.0-0.8) 10^3/u L Baso # (Auto) (0.0-0.1) 10^3/u L Nucleated RBC % (a uto) % Nucleated RBCs # /100WBC Sodium (136-145) mmol/L Potassium (3.5-5.1) mmol/L Chloride (98-107) mmol/L Carbon Dioxide (22-29) mmol/L Anion Gap (5-19) BUN (6-20) mg/dL Creatinine (0.7-1.2) mg/dL GFR Calculation (90-130) mL/min Glucose (65-115) mg/dL POC Glucose (70-110) mg/dL Calculated Osmolal ity (285-295) mOsm/k g Lactic Acid (0.5-2.2) mmol/L Lactic Acid (Sepsi s) (0.5-2.2) mmol/L Calcium (8.5-10.5) mg/dL Total Bilirubin (0.15-1.2) mg/dL AST (0-40) U/L ALT (0-41) U/L Alkaline Phosphata se (40-130) IU/L Troponin T Baselin e 18 H (0-15) ng/L Troponin T 120 Min [place] 19.62 H (0-15) ng/L Delta Troponin T 1.62 (0-10) ABS# NT-Pro-B Natriuret Pep (0-125) pg/mL Total Protein (6.6-8.7) g/dL Albumin (3.5-5.2) g/dL Globulin (1.3-4.6) g/dL Urine Color (Yellow) Urine Appearance (CLEAR) Urine pH (5-7) Ur Specific Gravit y (1.005-1.030) Urine Protein (Negative) Urine Glucose (UA) (Normal) Urine Ketones (Negative) Urine Blood (Negative) Urine Nitrate (Negative) Urine Bilirubin (Negative) Urine Urobilinogen (Negative) mg/dL Ur Leukocyte Camille ase (Negative) H. pylori IgG Anti body (Negative) Blood Type O Positive Rho(D) Type Positive Antibody Screen Negative Crossmatch See Detail 12/04/19 12/04/19 Range/Units 20:28 23:22 WBC (4.0-10.0) 10^3/ uL RBC (4.1-5.3) 10^6/u L Hgb (11.7-16.6) g/dL Hct (42.0-52.0) % MCV (80-94) fL MCH (28.0-34.0) pg MCHC (30.0-36.0) g/dL RDW (12.1-15.1) % Plt Count (130-400) 10^3/c mm MPV (7.4-10.4) fL Neut % (Auto) % Lymph % (Auto) % [place] % (Auto) % Eos % (Auto) % Baso % (Auto) % Neut # (Auto) (1.8-7.7) 10^3/u L Lymph # (Auto) (0.8-4.8) 10^3/u L [place] # (Auto) (0.2-0.9) 10^3/u L Eos # (Auto) (0.0-0.8) 10^3/u L Baso # (Auto) (0.0-0.1) 10^3/u L Nucleated RBC % (a uto) % Nucleated RBCs # /100WBC Sodium (136-145) mmol/L Potassium (3.5-5.1) mmol/L Chloride (98-107) mmol/L Carbon Dioxide (22-29) mmol/L Anion Gap (5-19) BUN (6-20) mg/dL Creatinine (0.7-1.2) mg/dL GFR Calculation (90-130) mL/min Glucose (65-115) mg/dL POC Glucose (70-110) mg/dL Calculated Osmolal ity (285-295) mOsm/k g Lactic Acid 2.2 (0.5-2.2) mmol/L Lactic Acid (Sepsi s) 1.8 (0.5-2.2) mmol/L Calcium (8.5-10.5) mg/dL Total Bilirubin (0.15-1.2) mg/dL AST (0-40) U/L ALT (0-41) U/L Alkaline Phosphata se (40-130) IU/L Troponin T Baselin e (0-15) ng/L Troponin T 120 Min [place] (0-15) ng/L Delta Troponin T (0-10) ABS# NT-Pro-B Natriuret Pep (0-125) pg/mL Total Protein (6.6-8.7) g/dL Albumin (3.5-5.2) g/dL Globulin (1.3-4.6) g/dL Urine Color (Yellow) Urine Appearance (CLEAR) Urine pH (5-7) Ur Specific Gravit y (1.005-1.030) Urine Protein (Negative) Urine Glucose (UA) (Normal) Urine Ketones (Negative) Urine Blood (Negative) Urine Nitrate (Negative) Urine Bilirubin (Negative) Urine Urobilinogen (Negative) mg/dL Ur Leukocyte Camille ase (Negative) H. pylori IgG Anti body (Negative) Blood Type Rho(D) Type Antibody Screen Crossmatch Discharge Plan Discharge Patient Disposition: Admitted As Inpatient Admit Provider: Farhat Dennis Clinical Impression: Acute upper gastrointestinal bleeding Anemia Qualifiers: Anemia type: iron deficiency Iron deficiency anemia type: chronic blood loss Qualified Code(s): D50.0 - Iron deficiency anemia secondary to blood loss (chronic) Condition: Stable Discharge Date/Time: 12/05/19 02:12 Coding Level of Care Code ED [facility] Recruiting Intern for g Fwd Exam Comprehensive
--- NOTE | 2019-12-04 18:02 | ECG_ITS ---
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 Measurements Intervals [place] Rate: 72 P: 47 PA: 146 QRS: 35 QRSD: 89 T: 68 QT: 383 QTc: 419 Interpretive Statements SINUS RHYTHM NONSPECIFIC T-WAVE ABNORMALITY Compared to ECG 11/28/2019 05:37:52 No significant changes Electronically Signed On 12-05-2019 16:59:57 CDT by Tony Reyes M.D. [id number]
[2019-12-04 18:37] LABS: Troponin(5th) Baseline 18 ng/L (0-15)
[2019-12-04 18:38] LABS: NT Pro B Type Natriuretic Pept 42 pg/mL (0-125)
[2019-12-04] MEDS: morphine 4 mg/mL SDV 1 mL IVP (19:00)
[2019-12-04] MEDS: ondansetron 2 mg/ML SDV 2 mL 4 MG IVP (19:00)
--- NOTE | 2019-12-04 19:06 | CTR_ITS ---
PROCEDURE INFORMATION: Exam: CT Abdomen And Pelvis With Contrast Exam date and time: 12/04/2019 7:07 PM Age: 54 years old Clinical indication: Abdominal pain; Generalized; Prior surgery; Surgery date: 6+ months; Surgery type: Appy, gb, hernia; Patient HX: C/O abd pain w dark stool and low h&h; Additional info: Abdom pain, black stool TECHNIQUE: Imaging protocol: Computed tomography of the abdomen and pelvis with intravenous contrast. Radiation optimization: All CT scans at this facility use at least one of these dose optimization techniques: automated exposure control; mA and/or kV adjustment per patient size (includes targeted exams where dose is matched to clinical indication); or iterative reconstruction. Contrast material: OMNI 300; Contrast volume: 95 ml; Contrast route: INTRAVENOUS (IV); COMPARISON: CT abdomen pelvis w con* [id number] 11/28/2019 3:39 AM RADIATION DOSE METRICS: Total DLP (mGy-cm): 1642.31 FINDINGS: Liver: The liver is mildly enlarged and demonstrates fatty infiltration changes. Gallbladder and bile ducts: The gallbladder has been removed. No biliary ductal dilatation. Pancreas: Normal. No ductal dilation. Spleen: Normal. No splenomegaly. Adrenals: Normal. No mass. Kidneys and ureters: Normal. No hydronephrosis. Stomach and bowel: Unremarkable. No obstruction. No mucosal thickening. Appendix: The appendix has been removed. Intraperitoneal space: Unremarkable. No free air. No significant fluid collection. Vasculature: Unremarkable. No abdominal aortic aneurysm. Lymph nodes: Unremarkable. No enlarged lymph nodes. Urinary bladder: Unremarkable as visualized. Reproductive: Unremarkable as visualized. Bones/joints: Unremarkable. No acute fracture. Soft tissues: Unremarkable. CT/CT abdomen pelvis w con* [id number] IMPRESSION: No acute abnormality is seen in the abdomen or pelvis. Mild hepatomegaly and hepatic steatosis are noted. Radiation Dose CTDIVOL = (mGy): DLP = 1642.31 (mGy-cm)
[2019-12-04] MEDS: iohexol 300 mg/mL 100 mL Btl IV (19:34)
[2019-12-04] MEDS: HYDROmorphone 1 mg/mL INJ 1 mL 0.5 MG IVP (19:45)
--- NOTE | 2019-12-04 20:02 | ECG_ITS ---
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 Measurements Intervals [place] Rate: 83 P: 53 [place]: 148 QRS: 38 QRSD: 83 T: 69 QT: 358 QTc: 421 Interpretive Statements SINUS RHYTHM NONSPECIFIC T-WAVE ABNORMALITY Compared to ECG 12/04/2019 18:21:20 No significant changes Electronically Signed On 12-05-2019 17:03:10 CDT by Tony Reyes M.D. [id number]
--- NOTE | 2019-12-04 20:52 | PC.NURSE ---
Patient requests that his daughter be the first point of contact. Bing Nielsen cell: and work .
[2019-12-04 20:54] LABS: Lactic Sepsis W/Reflex 2.2 mmol/L (0.5-2.2)
[2019-12-04 20:56] LABS: Troponin 5 2HR 19.62 ng/L (0-15); Troponin 5 2HR Delta 1.62 ABS# (0-10)
[2019-12-04 21:20] LABS: H. Pylori IgG Antibody Negative (Negative)
[2019-12-04 22:20] LABS: Reflex Lactate Order REFLEX LACTIC ORDERD
--- NOTE | 2019-12-04 22:40 | P.HP_ITS ---
Providers/Chief Complaint Primary Care Provider: Qi Muhammad DO Chief Complaint: DIZZY/DARK STOOLS History of Present Illness Ben Nielsen is a 54 year old male diastolic heart failure, hypothyroidism, who was recently evaluated in the ER for abdominal pain on November 27, he was diagnosed with constipation and was discharged home on bowel regimen coming in today for chief complaint of worsening abdominal pain and lightheadedness. Patient is stating that in last 1 week he has used a lot of prescribed and vesh-lax-rhdtrui laxatives and stool softeners for his constipation, he has been having very small bowel movements for last few days, he has not been feeling well for last 48 hours, he did not eat much as well, to day he woke up with some nausea, he started having abdominal cramps, went to the bathroom to have a bowel movement, he started experiencing black tarry stool, his toilet bowl was completely full of dark color stool. Afterwards he started feeling dizzy, lethargic and felt like he is going to pass out. He was in his truck when he felt extremely lethargic and called EMS to take him to the ER for further evaluation. Patient is denying previous history of peptic ulcer disease [id number] NSAID use, H. pylori infection, he has been scheduled for liver MRI next Saturday for incidental finding of hyperdense lesion of liver found on previous CT scan. Diagnosis in the ER revealed normal hemodynamics, positive orthostatic symptoms, hemoglobin dropped from 12to 7.2 and just 1 week, patient is status post 1 unit PRBC, hemodynamically stable, non-tachycardic, afebrile, lactic acid 2.2, mild leukocytosis, he has abdominal tenderness to deep palpation, I have requested CT abdomen pelvis to rule out acute mesenteric ischemia, CT abdomen pelvis did not show any ischemic colitis or acute remarkable findings other than hepatic steatosis, in the ER FOBT positive, recent TSH 5.3 Review of Systems Const: Reports: body aches, change in appetite, fatigue and malaise; Denies: fever(s) Eyes: Denies: change in vision ENMT: Denies: throat pain Card: Denies: chest pain Resp: Denies: dyspnea GI: Reports: abdominal pain, nausea and constipation; Denies: vomiting : Denies: flank pain Musc: Denies: neck pain Skin/Breast: Denies: rash Neuro: Denies: headache(s) Psych: Reports: anxiety Endo: Denies: polyuria Cornelius/Lymph: Denies: easy bruising All/Imm: Denies: urticaria Medications/Allergies Home Medications Medication Instructions Recorded Confirmed Last Taken Type aspirin 81 mg tablet,delayed 162 mg PO BEDTIME 03/13/19 12/04/19 12/01/19 History release melatonin 3 mg tablet 3 mg PO BEDTIME PRN #30 tab 04/02/19 12/04/19 12/01/19 Rx potassium chloride 20 mEq 20 meq PO DAILY 30 Days #30 tab 05/19/19 12/04/19 12/01/19 Rx tablet,extended release metoprolol tartrate 25 mg tablet 25 mg PO BID #180 tab 07/22/19 12/04/19 12/01/19 Rx nitroglycerin 0.4 mg sublingual 0.4 mg SUBLINGUAL ONCE PRN tab 07/24/19 12/04/19 09/01/19 History tablet albuterol sulfate 2 inh INHALATION Q4H PRN #18 gm 09/01/19 12/04/19 09/02/19 Rx losartan 50 mg tablet 50 mg PO DAILY #90 tab 10/20/19 12/04/19 12/01/19 Rx fenofibrate nanocrystallized 145 145 mg PO DAILY #30 tab 10/28/19 12/04/19 12/01/19 Rx mg tablet atorvastatin 10 mg tablet 10 mg PO DAILY #30 tab 11/04/19 12/04/19 12/01/19 Rx sitagliptin 50 mg-metformin 500 mg 1 tab PO BID #60 tab 11/04/19 12/04/19 12/01/19 Rx tablet gabapentin 800 mg tablet 800 mg PO TID #90 tab 11/05/19 12/04/19 12/01/19 Rx hydrocodone 10 mg-acetaminophen 1 tab PO BID PRN 30 Days #45 tab 11/05/19 12/04/19 12/01/19 Rx 325 mg tablet quetiapine 50 mg tablet 50 mg PO BEDTIME #90 tab 11/05/19 12/04/19 12/01/19 Rx sertraline 50 mg tablet 50 mg PO DAILY #90 tab 11/05/19 12/04/19 12/01/19 Rx tizanidine 4 mg tablet 4 mg PO TID PRN #90 tab 11/05/19 12/04/19 12/01/19 Rx tramadol 300 mg tablet,extended 300 mg PO DAILY 30 Days #30 tab 11/05/19 12/04/19 12/01/19 Rx release 24 hr metoclopramide HCl [Reglan] 10 mg PO Q6H PRN #20 tab 11/28/19 12/04/19 Unknown Rx levothyroxine 112 mcg tablet 112 mcg PO DAILY #30 tab 12/04/19 12/04/19 12/01/19 Rx Allergies Allergy/AdvReac Type Severity Reaction Status Date / Time pineapple Allergy Unknown ALGY-Anaphy Verified 12/04/19 20:03 laxis PFSH Acute PFSH: Medical History Anxiety with somatic features Chewing tobacco nicotine dependence Chronic low back pain Chronic neck pain Congestive heart failure Diabetes Diastolic heart failure Essential (primary) hypertension History of [place] (myocardial infarction) History of TIA (transient ischemic attack) Hypertriglyceridemia Hypothyroidism Internal hemorrhoids Left ventricular hypertrophy Major depressive disorder, recurrent, moderate MRSA (methicillin resistant Staphylococcus aureus) Pain management contract signed Persistent moderate somatic symptom disorder with predominant pain Umbilical hernia Surgical History H/O neck surgery S/P appendectomy S/P cholecystectomy S/P hernia repair Family History Mother CHF (congestive heart failure) Thyroid disease Sister Thyroid disease Father A-fib Brother Heart disease HX STENTS Other CAD (coronary artery disease) Diabetes Social History Smoking and tobacco status: former smoker Quit status (tobacco): has quit using tobacco Year quit tobacco: 2018 - 1.5 PPD x 17 Years Second hand smoke exposure: Yes Alcohol intake: current Alcohol intake frequency: holidays/special occasions only Alcohol type: beer Lives independently: Yes Household members: spouse Marital status: Current occupational status: disabled History of recent travel: No Current gender identity: Male Vitals/I&O/Wt Last Vital Signs Temp 98.2 F 12/04/19 21:00 Pulse 89 12/04/19 21:00 Resp 16 12/04/19 21:00 BP 111/67 09/25/20 21:00 Pulse Ox 96 12/04/19 21:00 12/04/19 12/04/19 12/04/19 06:59 14:59 22:59 Intake Total 0 / 0 Balance 0 / 0 Weight last 48 hrs Weight 113.852 kg Physical Exam Narrative: EXAM NARRATIVE: Obese male currently laying in left lateral position In distress because abdominal pain Hemodynamically stable, non-tachycardic, saturating well on room air, Status post 1 unit PRBC S1, S2 no tachycardia or heart failure signs No acute respiratory distress Abdomen distended, bowel sounds sluggish, tender to deep palpation diffusely, no guarding, pain is not disproportionate to physical exam He is afebrile Lower extremity no edema gangrene or ulcer Neurologically no neurological deficit EOMI, PERRLA GCS 15 Awake alert oriented x3 FOBT positive Data : 12/04/19 15:38 12/04/19 15:38 A&P Assessment and plan (1) Acute constipation: Status: Acute (2) Abdominal pain: Status: Acute Qualifiers: Abdominal location: generalized Qualified Code(s): R10.84 - Generalized abdominal pain (3) Obstructive sleep apnea: Status: Acute (4) Acute blood loss anemia: Status: Acute (5) Melanotic stools: Status: Acute (6) Cervical radiculopathy: Status: Acute (7) Hypothyroidism: Status: Chronic Additional A&P Information Acute blood loss anemia Melanotic stool No previous history of H. pylori, peptic ulcer disease, hepatitis, Patient is denying use of NSAIDs He is endorsing constipation, no history of A. fib, no history of cancer or hypercoagulable work-up Symptoms started today Hemodynamically stable N.p.o. PRBC 2 units ordered I have requested CT abdomen to rule out acute mesenteric ischemia considering acute onset of pain with severe blood loss, patient is already got contrast for CT abdomen pelvis, complications of contrast explained to the patient Hydrate with fluids, no need of antibiotics, no active signs of sepsis, lactic acid 2.2, no signs of ischemic colitis, hepatic steatosis on CT abdomen pelvis, he is scheduled to get an MRI for his liver for hypodense lesion found on previous CT scan He does carry history of internal hemorrhoids, as per the patient previous EGD colonoscopies were normal Dr. Solomon consulted Severe hypothyroidism: Recent TSH 5 I do believe this is the cause of his severe constipation along opioids Sleep apnea: Auto CPAP overnight Type 2 diabetes: I will start D5 half-normal saline after blood transfusion Full code N.p.o. DVT prophylaxis SCDs because of anemia Attestations Medical Necessity Statement*: Anticipating stay in the hospital course more than 2 midnights for blood transfusion secondary to acute severe blood loss anemia, will need EGD Time Spent in Patient Care: (>than 50% of time spent in counselling and/or direct pt care on unit) . 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
--- NOTE | 2019-12-04 23:18 | CTR_ITS ---
PROCEDURE INFORMATION: Exam: CT Angiography Abdomen and Pelvis With Contrast Exam date and time: 12/04/2019 11:45 PM Age: 54 years old Clinical indication: Condition or disease; Other: Gi bleed; Prior surgery; Surgery type: Gb, hernia, appy TECHNIQUE: Imaging protocol: Computed tomographic angiography of the abdomen and pelvis with intravenous contrast material. 3D rendering (Not supervised by radiologist): MIP and/or 3D reconstructed images were created by the technologist. Radiation optimization: All CT scans at this facility use at least one of these dose optimization techniques: automated exposure control; mA and/or kV adjustment per patient size (includes targeted exams where dose is matched to clinical indication); or iterative reconstruction. Contrast material: VISI; Contrast volume: 95 ml; Contrast route: INTRAVENOUS (IV); COMPARISON: CT abdomen pelvis w con* [id number] 12/04/2019 7:18 PM RADIATION DOSE METRICS: Total DLP (mGy-cm): 1504.6 FINDINGS: Lungs: Minimal stranding in the lung bases. Heart: Continued cardiac prominence. Still no pericardial effusion. Aorta: Continued slight atherosclerosis. Still no aortic aneurysm. Celiac trunk and mesenteric arteries: Mild stenosis in the proximal SMA. Celiac artery and its branches unremarkable. Patent GRICELDA with a possible slight stenosis of its origin. Renal arteries: Two renal arteries bilaterally again evident. No significant stenosis. Right iliac arteries: No occlusion or significant stenosis. Left iliac arteries: No occlusion or significant stenosis. Liver: Hepatic steatosis again evident. 14 mm focus of irregular enhancement extending to the medial margin of the inferior right lobe of the liver slightly more apparent than before. No abnormal enhancement elsewhere in the liver. Gallbladder and bile ducts: Cholecystectomy again evident. Still no biliary ductal dilatation. Pancreas: Pancreas still unremarkable. Spleen: Still no splenomegaly. Adrenals: Still no adrenal mass. Kidneys and ureters: Excretion of contrast by the kidneys. No renal mass. Still no hydronephrosis. Stomach and bowel: No extravasation of contrast into the GI tract. Material containing slightly increased density previously evident in the terminal ileum. Still no obstruction. Appendix: Appendectomy still likely. Intraperitoneal space: Still no free air. Lymph nodes: No interval enlarged nodes. Urinary bladder: Interval filling of the bladder by excreted contrast. No suggestion of a bladder abnormality. Reproductive: Interval small focus of enhancement in the right lateral aspect of the prostate. Bones/joints: Old compression fractures again evident. Continued degeneration of several discs. Interval slight worsening of the mild left convex scoliosis. Soft tissues: Continued very small supraumbilical ventral hernia containing fat. CT/CT angio abdomen pelvis [id number] IMPRESSION: 1. No apparent cause for GI bleeding. Interval small focus of enhancement in the right prostate. 2. Hepatic steatosis again evident. Interval greater evidence of a 14 mm focus of irregular enhancement in the inferior right lobe of the liver. Recommend further evaluation with liver MRI. 3. Continued cardiac prominence. Other findings detailed above. Radiation Dose CTDIVOL = (mGy): DLP = 1504.6 (mGy-cm)
[2019-12-04 23:47] LABS: Lactic Acid level (Lactate) 1.8 mmol/L (0.5-2.2)
[2019-12-04] MEDS: iodixanol 320 mg/mL 100mL Btl IV (23:56)
[2019-12-05] VITALS (23 sets, daily range): BP systolic 96–148; BP diastolic 52–80; PULSE 72–91; RESP 14–20; TEMP 36.6–37.1; O2SAT 93–100
[2019-12-05] MEDS: HYDROmorphone 1 mg/mL INJ 1 mL IVP (00:38)
[2019-12-05] MEDS: pantoprazole 40 mg SDV IVP ×2 (03:22→16:36)
[2019-12-05] MEDS: morphine 4 mg/mL SDV 1 mL 2 MG IVP ×5 (03:23→20:45)
[2019-12-05] MEDS: dextrose 5%-sod chloride 0.45% 1,000 ML 30 ML IV (08:50)
[2019-12-05 08:51] LABS: Basophils % 0.4 %; Eosinophils # 0.1 10^3/uL (0.0-0.8); Eosinophils % 1.1 %; Hematocrit 24.8 % (42.0-52.0); Hemoglobin 8.1 g/dL (11.7-16.6); Lymphocytes # 1.8 10^3/uL (0.8-4.8); Lymphocytes % 18.7 %; Mean Corpuscular HGB Conc 32.7 g/dL (30.0-36.0); Mean Corpuscular Hemoglobin 29.9 pg (28.0-34.0); Mean Corpuscular Volume 91.5 fL (80-94); Mean Platelet Volume 10.6 fL (7.4-10.4); Monocytes # 0.7 10^3/uL (0.2-0.9); Monocytes % 7.4 %; Neutrophils # 6.85 10^3/uL (1.8-7.7); Neutrophils % 71.9 %; Nucleated Red Blood Cells % 0 %; Platelet Count 269 10^3/cmm (130-400); Red Blood Count 2.71 10^6/uL (4.1-5.3); Red Cell Distribution Width 13.7 % (12.1-15.1); White Blood Count 9.5 10^3/uL (4.0-10.0)
[2019-12-05] MEDS: ondansetron 2 mg/ML SDV 2 mL 4 MG IVP (08:58)
[2019-12-05 09:04] LABS: Anion Gap 14.1 (5-19); Blood Urea Nitrogen 28 mg/dL (6-20); Calcium 8.5 mg/dL (8.5-10.5); Carbon Dioxide 24 mmol/L (22-29); Chloride 103 mmol/L (98-107); Glomerular Filtration Rate 77.9 mL/min (90-130); Glucose 137 mg/dL (65-115); Osmolality Calculated 290 mOsm/kg (285-295); Potassium 5.1 mmol/L (3.5-5.1); Sodium 136 mmol/L (136-145)
--- NOTE | 2019-12-05 09:20 | P.CONIM_ITS ---
Providers/Reason For Consult Consulting Physican/Specialty*: General Surgery Evens Solomon MD Reason for Consult*: Melena. Attending Physician: Tom Yu Primary Care Provider: Qi Muhammad DO History of Present Illness History of Present Illness Ben Nielsen is a 54 year old male who says that he started getting somewhat constipated about 10 days ago. He says he took multiple [id number] laxatives and stool softeners and says that he felt that problem was improved/had resolved. He last had a light brown bowel movement 2 days ago. Of note, the patient's most recent colonoscopy was in late 2018, and no significant abnormalities were found. Yesterday morning, however, he says he awoke and had a bowel movement that was jet black. He was having some lower abdominal cramping and some dizziness and eventually came to the emergency room. A CAT scan revealed no obvious acute abnormalities. His stool was apparently found to be heme positive by report. His hemoglobin had dropped about 4-5 g just within a week's time. The patient denies any known history of peptic ulcer disease. He adamantly denies taking any anti-inflammatory medications including ibuprofen and naproxen other than 2 baby aspirin a day. He used to smoke cigarettes but says he quit and does not smoke anymore. He does chew tobacco but says it has been a couple of weeks since he did that. He does not drink ethanol on a regular basis. By previous documentation he thought he had maybe had an EGD in 2018, but that is not in the record; he only appears to have had a colonoscopy at that time. The patient denies any history of GERD, heartburn, [id number] antacid use, etc. He has no known family history of upper GI neoplasia. Review of Systems General: Reports: 10 or more systems reviewed and unremarkable except in HPI and below Const: Denies: fever(s) GI: Reports: abdominal pain (Lower abdominal cramping), nausea and melena (Started 12/04/2019); Denies: vomiting Musc: Reports: neck pain (Chronic) and back pain (Chronic) Meds/Allergies Home Medications and Allergies Home Medications Medication Instructions Recorded Confirmed Last Taken Type aspirin 81 mg tablet,delayed 162 mg PO BEDTIME 03/13/19 12/04/19 12/01/19 History release melatonin 3 mg tablet 3 mg PO BEDTIME PRN #30 tab 04/02/19 12/04/19 12/01/19 Rx potassium chloride 20 mEq 20 meq PO DAILY 30 Days #30 tab 05/19/19 12/04/19 12/01/19 Rx tablet,extended release metoprolol tartrate 25 mg tablet 25 mg PO BID #180 tab 07/22/19 12/04/19 12/01/19 Rx nitroglycerin 0.4 mg sublingual 0.4 mg SUBLINGUAL ONCE PRN tab 07/24/19 12/04/19 09/01/19 History tablet albuterol sulfate 2 inh INHALATION Q4H PRN #18 gm 09/01/19 12/04/19 09/02/19 Rx losartan 50 mg tablet 50 mg PO DAILY #90 tab 10/20/19 12/04/19 12/01/19 Rx fenofibrate nanocrystallized 145 145 mg PO DAILY #30 tab 10/28/19 12/04/19 12/01/19 Rx mg tablet atorvastatin 10 mg tablet 10 mg PO DAILY #30 tab 11/04/19 12/04/19 12/01/19 Rx sitagliptin 50 mg-metformin 500 mg 1 tab PO BID #60 tab 11/04/19 12/04/19 12/01/19 Rx tablet gabapentin 800 mg tablet 800 mg PO TID #90 tab 11/05/19 12/04/19 12/01/19 Rx hydrocodone 10 mg-acetaminophen 1 tab PO BID PRN 30 Days #45 tab 11/05/19 12/04/19 12/01/19 Rx 325 mg tablet quetiapine 50 mg tablet 50 mg PO BEDTIME #90 tab 11/05/19 12/04/19 12/01/19 Rx sertraline 50 mg tablet 50 mg PO DAILY #90 tab 11/05/19 12/04/19 12/01/19 Rx tizanidine 4 mg tablet 4 mg PO TID PRN #90 tab 11/05/19 12/04/19 12/01/19 Rx tramadol 300 mg tablet,extended 300 mg PO DAILY 30 Days #30 tab 11/05/19 12/04/19 12/01/19 Rx release 24 hr metoclopramide HCl [Reglan] 10 mg PO Q6H PRN #20 tab 11/28/19 12/04/19 Unknown Rx levothyroxine 112 mcg tablet 112 mcg PO DAILY #30 tab 12/04/19 12/04/19 12/01/19 Rx Allergies Allergy/AdvReac Type Severity Reaction Status Date / Time pineapple Allergy Unknown ALGY-Anaphy Verified 12/04/19 20:03 laxis Current Medications Current Medications Generic Name Dose Route Start Last Admin Trade Name Freq PRN Reason Stop Dose Admin Dextrose/Sodium Chloride 1,000 mls @ 30 mls/hr 12/05/19 07:45 12/05/19 08:50 Dextrose 5%-Sod Chloride 0.45% IV 30 mls/hr .Q24H ABBIE Administration Morphine Sulfate 2 mg 12/05/19 02:43 12/05/19 06:59 Morphine IVP 2 mg Q4H ABBIE Administration Ondansetron HCl 4 mg 12/05/19 02:43 12/05/19 08:58 Zofran IVP 4 mg Q6H PRN Administration NAUSEA AND VOMITING Pantoprazole Sodium 40 mg 12/05/19 02:43 12/05/19 03:22 Protonix IVP 40 mg Q12H ABBIE Administration PFSH Acute PFSH: Medical History (Updated 12/05/19 @ 09:53 by Evens Solomon MD) Anxiety with somatic features Chewing tobacco nicotine dependence Chronic low back pain Chronic neck pain Congestive heart failure Diabetes Diastolic heart failure Essential (primary) hypertension History of colon polyps History of CVA (cerebrovascular accident) 2005 --left-sided weakness History of NM (myocardial infarction) History of TIA (transient ischemic attack) Hypertriglyceridemia Hypothyroidism Internal hemorrhoids Left ventricular hypertrophy Major depressive disorder, recurrent, moderate Melanotic stools MRSA (methicillin resistant Staphylococcus aureus) Nephrolithiasis Opioid contract exists Pain management contract signed Persistent moderate somatic symptom disorder with predominant pain Umbilical hernia Surgical History (Updated 12/05/19 @ 10:06 by Evens Solomon MD) H/O neck surgery x 5 ( some of those were for a postop MRSA infection ) History of colonoscopy 12/2014 --small tubular adenoma, limited diverticulosis 02/2018 --small internal hemorrhoids S/P appendectomy S/P cholecystectomy S/P hernia repair ventral with mesh x 2 Family History Mother CHF (congestive heart failure) Thyroid disease Sister Thyroid disease Father A-fib Brother Heart disease HX STENTS Other CAD (coronary artery disease) Diabetes Social History Smoking and tobacco status: former smoker Quit status (tobacco): has quit using tobacco Year quit tobacco: 2018 - 1.5 PPD x 17 Years Second hand smoke exposure: Yes Alcohol intake: current Alcohol intake frequency: holidays/special occasions only Alcohol type: beer Lives independently: Yes Household members: spouse Marital status: Current occupational status: disabled History of recent travel: No Current gender identity: Male Vitals/I&O/Wt Last Vital Signs Temp 98.6 F 12/05/19 07:51 Pulse 72 12/05/19 07:51 Resp 18 12/05/19 07:51 BP 122/73 12/05/19 07:51 Pulse Ox 93 12/05/19 07:51 12/04/19 12/05/19 12/05/19 22:59 06:59 14:59 Intake Total 350 / 700 350 / 700 Output Total 450 / 450 Balance 350 / 250 -100 / 250 Weight last 48 hrs Weight 251 lb Physical Exam Narrative: EXAM NARRATIVE: The patient was encountered in his hospital room. He does not appear to be in any distress. The pupils are equal. No carotid bruits are heard. The lungs are clear anteriorly. The heart is regular. The abdomen is moderately obese but is soft. He has minimal right lower quadrant tenderness. No obvious masses are palpated. The extremities reveal no edema. Neurologically the patient appears to be grossly intact. Data Imaging^: CT Abd/Pel: Radiologist's impression: CT scan abdomen/pelvis 12/04/2019 IMPRESSION: No acute abnormality is seen in the abdomen or pelvis. Mild hepatomegaly and hepatic steatosis are noted. A&P Assessment and plan (1) Melanotic stools: This just started yesterday morning. The patient has not had any known history of peptic ulcer disease or upper GI bleeding. Status: Acute (2) Acute upper gastrointestinal bleeding: There is little question that this is coming from the upper gastrointestinal tract; the source is just somewhat unclear. The patient denies any history of NSAID use, excessive caffeine, alcohol or tobacco use. Status: Acute (3) Anemia due to blood loss: The patient's hemoglobin appears to be fairly stable following a 1 unit transfusion. He does not seem to be having any obvious ongoing bleeding clinically. We have discussed EGDs in some detail. Procedural details and risks were gone over. The patient is actually anxious to have an EGD done to find out what is going on. He would like to proceed. He has been n.p.o. I will make arrangements for an EGD. Status: Acute Consult Attestations Medical Necessity Statement: See admitting service's notation. Coding Level of Care Code Acute Case Management Coordinator for [facility] Fwd Diagnoses Melanotic stools K92.1 Acute upper gastrointestinal bleeding K92.2 Anemia due to blood loss D50.0
--- NOTE | 2019-12-05 10:25 | P.PN_ITS ---
Subjective Subjective: Interval history: He has been having quite a bit of abdominal discomfort, cramping, nausea, no appetite. Melanotic stools, which she says have been soft but not watery. Vitals/I&O/Wt Last Vital Signs Temp 98.6 F 12/05/19 07:51 Pulse 72 12/05/19 07:51 Resp 18 12/05/19 07:51 BP 122/73 12/05/19 07:51 Pulse Ox 93 12/05/19 07:51 12/04/19 12/05/19 12/05/19 22:59 06:59 14:59 Intake Total 350 / 350 350 / 700 Output Total 450 / 450 Balance 350 / 350 -100 / 250 Weight last 48 hrs Weight 113.852 kg Physical Exam Const: COMMON NORMALS: no acute distress and patient oriented x3 OTHER: In some discomfort due to nausea, abdominal discomfort. HENMT: COMMON NORMALS: oropharynx normal Neck/C-Spine: COMMON NORMALS: no JVD Resp: COMMON NORMALS: normal respiratory effort and clear to auscultation bilaterally AUSCULTATION: clear to auscultation bilaterally Cardio: COMMON NORMALS: no JVD, regular rhythm, S1 normal heart sound present, S2 normal heart sound present and No murmurs present (Cardio) RHYTHM: regular rhythm HEART SOUNDS: S1 normal heart sound present and S2 normal heart sound present GI: COMMON NORMALS: Normal to inspection, nondistended, normoactive bowel sounds present, Soft to palpation and non-tender PALPATION: Yes Soft to palpation OTHER: No particular area of severe pain on palpation, but some diffuse discomfort, worse in some areas than others. Extremity: COMMON NORMALS: no joint enlargement and no pedal edema Neuro: COMMON NORMALS: patient oriented x3 and moves all extremities Skin: COMMON NORMALS: no rashes or lesions noted GENERAL SKIN EXAM: no rashes or lesions noted Data : 12/05/19 08:28 12/05/19 08:28 A&P Assessment and plan (1) Acute blood loss anemia: GI bleeding. Suspected upper GI bleed. Could be aspirin induced. Appreciate surgical assessment. Appears he responded well to 1 unit PRBC transfusion with repeat hemoglobin 8.1. He is having quite a bit of nausea, abdominal cramping. CTA results appreciated. Does not appear to show signs of bowel ischemia. Continue PPI. Hold aspirin. Status: Acute (2) Melanotic stools: Secondary to upper GI bleed as above. Status: Acute (3) Abdominal pain: Cramping, nausea suspected secondary to cathartic effect. Bowel rest for now. PPI, Zofran. Status: Acute Qualifiers: Abdominal location: generalized Qualified Code(s): R10.84 - Generalized abdominal pain (4) Obstructive sleep apnea: Nightly CPAP. Status: Acute (5) Cervical radiculopathy: Status: Acute (6) Hypothyroidism: Recent TSH 5. Appears levothyroxine has been recently increased to 112. Continue. Status: Chronic Additional A&P Information Constipation: Possibly due to hypothyroidism. Opioid pain medication. Type 2 diabetes: I will start D5 half-normal saline after blood transfusion Full code N.p.o. DVT prophylaxis SCDs because of anemia Attestations Medical Necessity Statement*: Continue admission for assessment and management of GI bleeding, acute anemia. Coding Level of Care Code Acute Coping Machine Operator for [facility] Fwd Diagnoses Acute blood loss anemia D62 Melanotic stools K92.1 Abdominal pain R10.84 Abdominal location: generalized Obstructive sleep apnea G47.33 Cervical radiculopathy M54.12 Hypothyroidism E03.9
[2019-12-05] MEDS: sertraline 50 mg Tablet PO (10:36)
[2019-12-05] MEDS: promethazine 25 mg Tablet 12.5 MG PO (10:49)
--- NOTE | 2019-12-05 10:51 | PC.NURSE ---
Patient reports nausea remaining after zofran administration, Notified Dr. Yu, new orders received for phenergan, see MAR for further details.
--- NOTE | 2019-12-05 13:45 | PC.CHAP ---
Pastoral Care Encounter/Spiritual Assessment Type of Contact [] Declined area safety manager visit [] Patient/Family/Request visit [] Outpatient visit [] Follow-up visit [] Physician referral [] Code/Alert [x] Routine visit [] Staff referral [] Actively dying [] Patient sleeping [] Family support [] [] Out of room [] Palliative care [] [] Receiving care in room [] Pre-surgical visit [] Trauma [] Long length of stay [] ICU visit [] Other: Relational/Emotional Strength [] Patient feels connected with others/family/visitors/staff [] Distress [] Loneliness/isolation [] Abandonment Spirituality of Patient [] Person of Janna [] Attends Confucianist of their Janna [] Believes in Prayer [] Reads Bible or Sikhism materials [] There are Spiritual issues to be addressed Painter Rough Interventions [x] Prayer [] Active listening [] Non-anxious presence [] Spiritual/emotional support [] Crisis/trauma care [] Spiritual counseling [] Bereavement support [] Provided bereavement packet [] Provided Bible/devotional materials [] Provided toy/stuffed animal, coloring book to patient or family member [] Provided Communion [] Anointing/[place] [] Salvation [] Completed spiritual assessment [] Other: Impact on Illness or Injury [] Angry [] Fearful [] Anxious [] Often cries [] Exhaustion [] Unable to work [] Unable to attend hindu [] Unable to walk/stand [] Unable to read [] Unable to drive [] Unable to eat/drink [] Unable to sleep [] Unable to be with family [] Patient intubated [] Other: Summary Time spent with patient
--- NOTE | 2019-12-05 13:48 | PC.CHAP ---
Pastoral Care Encounter/Spiritual Assessment Type of Contact [] Declined bottom cementer visit [] Patient/Family/Request visit [] Outpatient visit [] Follow-up visit [] Physician referral [] Code/Alert [x] Routine visit [] Staff referral [] Actively dying [] Patient sleeping [] Family support [] [] Out of room [] Palliative care [] [] Receiving care in room [] Pre-surgical visit [] Trauma [] Long length of stay [] ICU visit [] Other: Relational/Emotional Strength [] Patient feels connected with others/family/visitors/staff [] Distress [] Loneliness/isolation [] Abandonment Spirituality of Patient [] Person of Janna [] Attends Roman Catholic of their Janna [] Believes in Prayer [] Reads Bible or Evangelical materials [] There are Spiritual issues to be addressed Older Worker Specialist Interventions [x] Prayer [] Active listening [] Non-anxious presence [] Spiritual/emotional support [] Crisis/trauma care [] Spiritual counseling [] Bereavement support [] Provided bereavement packet [] Provided Bible/devotional materials [] Provided toy/stuffed animal, coloring book to patient or family member [] Provided Communion [] Anointing/[place] [] Salvation [] Completed spiritual assessment [] Other: Impact on Illness or Injury [] Angry [] Fearful [] Anxious [] Often cries [] Exhaustion [] Unable to work [] Unable to attend baptism [] Unable to walk/stand [] Unable to read [] Unable to drive [] Unable to eat/drink [] Unable to sleep [] Unable to be with family [] Patient intubated [] Other: Summary Time spent with patient
--- NOTE | 2019-12-05 14:20 | PC.NURSE ---
patient taken to surgery by ER nurse, no distress noted.
[2019-12-05] MEDS: sodium chloride 0.9% 1,000 ML 30 ML IV (14:36)
--- NOTE | 2019-12-05 14:36 | P.ANESASSM_ITS ---
Pre-Anesthetic Assessment Pre-Anesthetic Assessment: Height/Weight: Height 1.78 m Weight 113.852 kg Temp Pulse Resp BP Pulse Ox 98.7 F 72 18 132/66 100 12/05/19 14:33 12/05/19 14:33 12/05/19 14:33 12/05/19 14:33 12/05/19 14:33 Preop Diagnosis: EGD Proposed Procedure: Operation Date: 12/05/19 13:35 Proposed Procedures p EGD(Not Applicable) - Evens Solomon MD Familial anesthetic complications: NOne Was Beta Foreign taken within 24 hours: Yes Last intake: Intake Last Liquid Date 12/04/19 Last Liquid Time 14:00 Last Solid Date 12/02/19 Last Solid Time 09:00 Social: Social History: Tobacco Exam: Pre-Anes Outpt Exam: alert, oriented x 3, clear to auscultation bilate rally and regular rate & rhythm Airway: Cervical ROM: Other (limited extension d/t fusion and rods in neck) MP: 4 Dentition: Full Additional comments: large neck circumference Pulmonary: Pulmonary: Sleep apnea (cpap) CV/HEM: CV/HEM: Anemia, CHF and HTN GI: GI: GERD Comments: GI bleed Metabolic: Metabolic: DM, Morbid obesity and Thyroid (Now receiving increased replacement, patient denotes no change in mental status, no complaints of edema, sodium, glucose and BP wnl) Comments: potassium 5.1 Musc/skel: Comments: Cervical neck pain w/ s/p madhuri placement with nerve damage/weakness Neuropsych: Neuropsych: CVA (2006 - chart states L hemiparesis, but patient states this is from his neck) Anesthetic Plan: ASA status: 3 Anesthesia: MAC Risk of > 500 ml blood loss (7ml/kg in children): No Meds/Allergies Current Medications: Current Medications Generic Name Dose Route Start Last Admin Trade Name Freq PRN Reason Stop Dose Admin Dextrose/Sodium Ch loride 1,000 mls @ 30 ml s/hr 12/05/19 07:45 12/05/19 08:50 Dextrose 5%-Sod Chloride 0.45% IV 30 mls/hr .Q24H ABBIE Administration Morphine Sulfate 2 mg 12/05/19 02:43 12/05/19 10:28 Morphine IVP 2 mg Q4H ABBIE Administration Ondansetron HCl 4 mg 12/05/19 02:43 12/05/19 08:58 Zofran IVP 4 mg Q6H PRN Administration NAUSEA AND VOMITI NG Pantoprazole Sodiu m 40 mg 12/05/19 02:43 12/05/19 03:22 Protonix IVP 40 mg Q12H ABBIE Administration Promethazine HCl 12.5 mg 12/05/19 10:36 12/05/19 10:49 Phenergan PO 12.5 mg Q6H PRN Administration NAUSEA Sertraline HCl 50 mg 12/05/19 10:30 12/05/19 10:36 Zoloft PO 50 mg DAILY ABBIE Administration PFSH Anesthesia PFSH: Medical History (Updated 12/05/19 @ 09:53 by Evens Solomon MD) Anxiety with somatic features Chewing tobacco nicotine dependence Chronic low back pain Chronic neck pain Congestive heart failure Diabetes Diastolic heart failure Essential (primary) hypertension History of colon polyps History of CVA (cerebrovascular accident) 2005 --left-sided weakness History of [place] (myocardial infarction) History of TIA (transient ischemic attack) Hypertriglyceridemia Hypothyroidism Internal hemorrhoids Left ventricular hypertrophy Major depressive disorder, recurrent, moderate Melanotic stools MRSA (methicillin resistant Staphylococcus aureus) Nephrolithiasis Opioid contract exists Pain management contract signed Persistent moderate somatic symptom disorder with predominant pain Umbilical hernia Surgical History (Updated 12/05/19 @ 10:06 by Evens Solomon MD) H/O neck surgery x 5 ( some of those were for a postop MRSA infection ) History of colonoscopy 12/2014 --small tubular adenoma, limited diverticulosis 02/2018 --small internal hemorrhoids S/P appendectomy S/P cholecystectomy S/P hernia repair ventral with mesh x 2 Family History Mother CHF (congestive heart failure) Thyroid disease Sister Thyroid disease Father A-fib Brother Heart disease HX STENTS Other CAD (coronary artery disease) Diabetes Social History Smoking and tobacco status: former smoker Quit status (tobacco): has quit using tobacco Year quit tobacco: 2018 - 1.5 PPD x 17 Years Second hand smoke exposure: Yes Alcohol intake: current Alcohol intake frequency: holidays/special occasions only Alcohol type: beer Lives independently: Yes Household members: spouse Marital status: Current occupational status: disabled History of recent travel: No Current gender identity: Male Data Anesthesia CBC & Chem 7: 12/05/19 08:28 12/05/19 08:28 Other Labs: Laboratory Results - last 48 hr 12/04/19 12/04/19 12/04/19 15:26 15:38 15:38 WBC 11.3 H RBC 2.45 L Hgb 7.2 L Hct 22.8 L MCV 93.1 MCH 29.4 MCHC 31.6 RDW 13.2 Plt Count 387 MPV 10.4 Neut % (Auto) 69.9 Lymph % (Auto) 21.1 [place] % (Auto) 7.8 Eos % (Auto) 0.2 Baso % (Auto) 0.3 Neut # (Auto) 7.91 H Lymph # (Auto) 2.4 [place] # (Auto) 0.9 Eos # (Auto) 0.0 Baso # (Auto) 0.0 Nucleated RBC % (auto) 0 Nucleated RBCs # 0.0 Sodium 137 Potassium 4.4 Chloride 102 Carbon Dioxide 22 Anion Gap 17.4 BUN 40 H Creatinine 1.1 GFR Calculation 69.8 L Glucose 156 H POC Glucose Calculated Osmolality 297 H Lactic Acid Lactic Acid (Sepsis) Calcium 9.0 Total Bilirubin 0.2 AST 23 ALT 19 Alkaline Phosphatase 33 L Troponin T Baseline Troponin T 120 Minute Delta Troponin T NT-Pro-B Natriuret Pep Total Protein 6.3 L Albumin 4.0 Globulin 2.3 Urine Color Yellow Urine Appearance Clear Urine pH 5 Ur Specific Lizella 1.020 Urine Protein Neg Urine Glucose (UA) 2+ Urine Ketones Negative Urine Blood Neg Urine Nitrate Negative Urine Bilirubin Neg Urine Urobilinogen Neg Ur Leukocyte Esterase Negative H. pylori IgG Antibody Blood Type Rho(D) Type Antibody Screen Crossmatch 12/04/19 12/04/19 12/04/19 15:38 15:38 17:40 WBC RBC Hgb Hct MCV MCH MCHC RDW Plt Count MPV Neut % (Auto) Lymph % (Auto) [place] % (Auto) Eos % (Auto) Baso % (Auto) Neut # (Auto) Lymph # (Auto) [place] # (Auto) Eos # (Auto) Baso # (Auto) Nucleated RBC % (auto) Nucleated RBCs # Sodium Potassium Chloride Carbon Dioxide Anion Gap BUN Creatinine GFR Calculation Glucose POC Glucose 123 Calculated Osmolality Lactic Acid Lactic Acid (Sepsis) Calcium Total Bilirubin AST ALT Alkaline Phosphatase Troponin T Baseline Troponin T 120 Minute Delta Troponin T NT-Pro-B Natriuret Pep 42 Total Protein Albumin Globulin Urine Color Urine Appearance Urine pH Ur Specific Lizella Urine Protein Urine Glucose (UA) Urine Ketones Urine Blood Urine Nitrate Urine Bilirubin Urine Urobilinogen Ur Leukocyte Esterase H. pylori IgG Antibody Negative Blood Type Rho(D) Type Antibody Screen Crossmatch 12/04/19 12/04/19 12/04/19 18:11 18:11 20:28 WBC RBC Hgb Hct MCV MCH MCHC RDW Plt Count MPV Neut % (Auto) Lymph % (Auto) [place] % (Auto) Eos % (Auto) Baso % (Auto) Neut # (Auto) Lymph # (Auto) [place] # (Auto) Eos # (Auto) Baso # (Auto) Nucleated RBC % (auto) Nucleated RBCs # Sodium Potassium Chloride Carbon Dioxide Anion Gap BUN Creatinine GFR Calculation Glucose POC Glucose Calculated Osmolality Lactic Acid Lactic Acid (Sepsis) Calcium Total Bilirubin AST ALT Alkaline Phosphatase Troponin T Baseline 18 H Troponin T 120 Minute 19.62 H Delta Troponin T 1.62 NT-Pro-B Natriuret Pep Total Protein Albumin Globulin Urine Color Urine Appearance Urine pH Ur Specific Lizella Urine Protein Urine Glucose (UA) Urine Ketones Urine Blood Urine Nitrate Urine Bilirubin Urine Urobilinogen Ur Leukocyte Esterase H. pylori IgG Antibody Blood Type O Positive Rho(D) Type Positive Antibody Screen Negative Crossmatch See Detail 12/04/19 12/04/19 12/05/19 20:28 23:22 08:28 WBC 9.5 RBC 2.71 L Hgb 8.1 L Hct 24.8 L MCV 91.5 MCH 29.9 MCHC 32.7 RDW 13.7 Plt Count 269 MPV 10.6 H Neut % (Auto) 71.9 Lymph % (Auto) 18.7 [place] % (Auto) 7.4 Eos % (Auto) 1.1 Baso % (Auto) 0.4 Neut # (Auto) 6.85 Lymph # (Auto) 1.8 [place] # (Auto) 0.7 Eos # (Auto) 0.1 Baso # (Auto) 0.0 Nucleated RBC % (auto) 0 Nucleated RBCs # 0.0 Sodium Potassium Chloride Carbon Dioxide Anion Gap BUN Creatinine GFR Calculation Glucose POC Glucose Calculated Osmolality Lactic Acid 2.2 Lactic Acid (Sepsis) 1.8 Calcium Total Bilirubin AST ALT Alkaline Phosphatase Troponin T Baseline Troponin T 120 Minute Delta Troponin T NT-Pro-B Natriuret Pep Total Protein Albumin Globulin Urine Color Urine Appearance Urine pH Ur Specific Lizella Urine Protein Urine Glucose (UA) Urine Ketones Urine Blood Urine Nitrate Urine Bilirubin Urine Urobilinogen Ur Leukocyte Esterase H. pylori IgG Antibody Blood Type Rho(D) Type Antibody Screen Crossmatch 12/05/19 08:28 WBC RBC Hgb Hct MCV MCH MCHC RDW Plt Count MPV Neut % (Auto) Lymph % (Auto) [place] % (Auto) Eos % (Auto) Baso % (Auto) Neut # (Auto) Lymph # (Auto) [place] # (Auto) Eos # (Auto) Baso # (Auto) Nucleated RBC % (auto) Nucleated RBCs # Sodium 136 Potassium 5.1 Chloride 103 Carbon Dioxide 24 Anion Gap 14.1 BUN 28 H Creatinine 1.0 GFR Calculation 77.9 L Glucose 137 H POC Glucose Calculated Osmolality 290 Lactic Acid Lactic Acid (Sepsis) Calcium 8.5 Total Bilirubin AST ALT Alkaline Phosphatase Troponin T Baseline Troponin T 120 Minute Delta Troponin T NT-Pro-B Natriuret Pep Total Protein Albumin Globulin Urine Color Urine Appearance Urine pH Ur Specific Lizella Urine Protein Urine Glucose (UA) Urine Ketones Urine Blood Urine Nitrate Urine Bilirubin Urine Urobilinogen Ur Leukocyte Esterase H. pylori IgG Antibody Blood Type Rho(D) Type Antibody Screen Crossmatch Cardiac Studies: No Data to Display
--- NOTE | 2019-12-05 15:36 | ANE.PACU2 ---
Inpatient post-anesthesia follow up: Airway intact: Yes Vital signs: Temperature 98.7 F Pulse Rate 72 Respiratory Rate 18 Blood Pressure 132/66 Pulse Oximetry 100 Oxygen Delivery Me thod Room Air Oxygen Flow Rate Fraction of Inspir ed Oxygen Hydration adequate: Yes Nausea and vomiting: No Pain level: 1 Mental status: Baseline
--- NOTE | 2019-12-05 16:03 | PC.NURSE ---
returned from surgery, advanced diet to clear liquid, reports pain of 9 on 0-10 pain scale to abdomen and back, repositioned in bed, SCD's in place, post-op surgery vitals started.
[2019-12-05] MEDS: gabapentin 400 mg Capsule 800 MG PO ×2 (16:36→20:44)
--- NOTE | 2019-12-05 18:44 | PC.NURSE ---
Dr. Yu notified of patients driving in from [place] and will arrive in town around 9PM, okay'd to come visit.
[2019-12-05 20:06] LABS: Hemoglobin 7.3 g/dL (11.7-16.6)
[2019-12-05] MEDS: quetiapine 25 mg Tablet 50 MG PO (20:44)
[2019-12-06] VITALS (17 sets, daily range): BP systolic 97–145; BP diastolic 59–76; PULSE 67–87; RESP 14–17; TEMP 36.7–37.4; O2SAT 95–99
[2019-12-06] MEDS: pantoprazole 40 mg SDV IVP ×2 (02:18→14:20)
[2019-12-06 05:32] LABS: Basophils % 0.4 %; Eosinophils # 0.2 10^3/uL (0.0-0.8); Eosinophils % 3.3 %; Hematocrit 23.3 % (42.0-52.0); Hemoglobin 7.3 g/dL (11.7-16.6); Lymphocytes # 2.4 10^3/uL (0.8-4.8); Lymphocytes % 34.4 %; Mean Corpuscular HGB Conc 31.3 g/dL (30.0-36.0); Mean Corpuscular Hemoglobin 29.4 pg (28.0-34.0); Mean Platelet Volume 10.7 fL (7.4-10.4); Monocytes # 0.6 10^3/uL (0.2-0.9); Monocytes % 8.3 %; Neutrophils # 3.69 10^3/uL (1.8-7.7); Neutrophils % 53.2 %; Nucleated Red Blood Cells % 0 %; Platelet Count 242 10^3/cmm (130-400); Red Blood Count 2.48 10^6/uL (4.1-5.3); Red Cell Distribution Width 13.9 % (12.1-15.1)
[2019-12-06 05:47] LABS: Anion Gap 11.2 (5-19); Blood Urea Nitrogen 15 mg/dL (6-20); Calcium 7.7 mg/dL (8.5-10.5); Carbon Dioxide 25 mmol/L (22-29); Chloride 106 mmol/L (98-107); Glomerular Filtration Rate 87.9 mL/min (90-130); Glucose 114 mg/dL (65-115); Osmolality Calculated 288 mOsm/kg (285-295); Potassium 4.2 mmol/L (3.5-5.1); Sodium 138 mmol/L (136-145)
--- NOTE | 2019-12-06 06:48 | PC.NURSE ---
Received report from Marge Lindquist LVN. Assumed care of patient.
--- NOTE | 2019-12-06 07:28 | PM.PN ---
Subjective Subjective: Interval history: The patient is still complaining of some nausea and says he is somewhat dizzy when he gets up. He has not had any further bowel movements but is passing a lot of flatus. Endoscopy findings were discussed with him. Vitals/I&O/Wt Last Vital Signs Temp 98.7 F 12/06/19 04:00 Pulse 83 12/06/19 04:00 Resp 17 12/06/19 04:00 BP 116/75 12/06/19 04:00 Pulse Ox 95 12/06/19 04:00 12/05/19 12/06/19 12/06/19 22:59 06:59 14:59 Intake Total 1540 / 1540 Output Total 675 / 675 Balance 865 / 865 Weight last 48 hrs Weight 251 lb Physical Exam Narrative: EXAM NARRATIVE: No significant change. Data : 12/06/19 04:42 12/06/19 04:42 A&P Assessment and plan (1) Duodenal erosion: The patient was found to have a duodenal erosion/early ulceration with concomitant gastritis and duodenitis. There was no ongoing bleeding or obvious evidence of recent bleeding. CLOtest reading is still officially pending, but upon examining the results personally this morning it is almost certain to be negative. Patient's hemoglobin has drifted somewhat again, but this may be secondary to fluid status. Continue clear liquid diet for now, as the patient remains somewhat nauseated. Continue PPI. Status: Acute Attestations Medical Necessity Statement*: See admitting service's notation. 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
--- NOTE | 2019-12-06 07:47 | PC.NURSE ---
Patient reports constant nausea, tenderness to abdomen upon palpation, soft large and round, denies BM HS shift, tolerating clear liquids without emesis, states, I just have a constant upset stomach. Alert and oriented, discussed plan of care, verbalized understanding, call light in reach, side rails up X2.
[2019-12-06] MEDS: gabapentin 400 mg Capsule 800 MG PO ×3 (08:07→20:11)
[2019-12-06] MEDS: morphine 4 mg/mL SDV 1 mL 2 MG IVP ×5 (08:07→21:55)
[2019-12-06] MEDS: levothyroxine 112 mcg Tablet PO (08:07)
[2019-12-06] MEDS: sertraline 50 mg Tablet PO (08:07)
[2019-12-06] MEDS: ondansetron 2 mg/ML SDV 2 mL 4 MG IVP (08:08)
[2019-12-06] MEDS: dextrose 5%-sod chloride 0.45% 1,000 ML 30 ML IV (08:08)
--- NOTE | 2019-12-06 08:54 | PC.NURSE ---
confirmed with Dr. Solomon that IV fluids have been increased to 100mL/hr.
--- NOTE | 2019-12-06 09:50 | PM.PN ---
Subjective Subjective: Interval history: Still having abdominal pain. He says now mostly right lower quadrant, but does kind of go across the lower abdomen. On palpation when pushing deep enough has tenderness in other parts of the abdomen as well. He has been passing gas. No vomiting. Says still gets somewhat lightheaded when standing up. Vitals/I&O/Wt Last Vital Signs Temp 98.0 F 12/06/19 07:33 Pulse 75 12/06/19 07:33 Resp 16 12/06/19 08:07 BP 145/76 12/06/19 07:33 Pulse Ox 99 12/06/19 07:33 12/05/19 12/06/19 12/06/19 22:59 06:59 14:59 Intake Total 1540 / 1540 1442 / 1442 Output Total 675 / 675 700 / 700 Balance 865 / 865 742 / 742 Weight last 48 hrs Weight 113.852 kg Physical Exam Const: COMMON NORMALS: no acute distress and patient oriented x3 OTHER: In some discomfort due to nausea, abdominal discomfort. HENMT: COMMON NORMALS: oropharynx normal Neck/C-Spine: COMMON NORMALS: no JVD Resp: COMMON NORMALS: normal respiratory effort and clear to auscultation bilaterally AUSCULTATION: clear to auscultation bilaterally Cardio: COMMON NORMALS: no JVD, regular rhythm, S1 normal heart sound present, S2 normal heart sound present and No murmurs present (Cardio) RHYTHM: regular rhythm HEART SOUNDS: S1 normal heart sound present and S2 normal heart sound present GI: COMMON NORMALS: Normal to inspection, nondistended, normoactive bowel sounds present, Soft to palpation and non-tender PALPATION: Yes Soft to palpation OTHER: No particular area of severe pain on palpation, but some diffuse discomfort, worse in some areas than others. Extremity: COMMON NORMALS: no joint enlargement and no pedal edema Neuro: COMMON NORMALS: patient oriented x3 and moves all extremities Skin: COMMON NORMALS: no rashes or lesions noted GENERAL SKIN EXAM: no rashes or lesions noted Data : 12/06/19 04:42 12/06/19 04:42 A&P Assessment and plan (1) Acute blood loss anemia: So far no additional bowel movement. Hemoglobin appears to stabilized at 7.3 last night and this morning, lower than posttransfusion yesterday at 8.1. He does report that he still gets lightheaded when standing up. He is having pain in his abdomen today notes mostly right lower quadrant, radiating across the lower abdomen, tender on palpation. Tenderness also found in other areas although pushing much deeper. Discussed with surgery and reviewed again CTA results. At this time will go ahead and give him additional unit PBC transfusion as he still appears to have some symptoms. Monitor symptoms at this time. Consider repeat CT/CTA imaging tomorrow if persistent abdominal discomfort. Does have a duodenal erosion/early ulceration with concomitant gastritis and duodenitis on EGD 12/05 which are at least moderate. This would explain at least some of his symptoms. We will also go ahead and request for stool studies for any possible additional infectious cause that may lead to his symptoms. GI bleeding. Appreciate surgical assessment. Continue PPI. Hold aspirin. Status: Acute (2) Melanotic stools: As above. Status: Acute (3) Abdominal pain: Cramping, nausea suspected secondary to cathartic effect, duodenal erosion, gastritis and duodenitis. Also having lower abdominal pain. As above. Morphine. PPI, Zofran. Status: Inactive Qualifiers: Abdominal location: generalized Qualified Code(s): R10.84 - Generalized abdominal pain (4) Obstructive sleep apnea: Nightly CPAP. Status: Acute (5) Cervical radiculopathy: Status: Acute (6) Hypothyroidism: Recent TSH 5. Appears levothyroxine has been recently increased to 112. Continue. Status: Chronic Additional A&P Information Constipation: Severe constipation prior to admission. Possibly due to hypothyroidism. Opioid pain medication. He was concerned about possible perforation, but discussed with him we did not see any evidence of that on either of the CT studies. Type 2 diabetes: Monitor glucose Full code CLD DVT prophylaxis SCDs because of anemia Attestations Medical Necessity Statement*: Continue admission for assessment management of GI bleeding, acute symptomatic anemia, abdominal pain. 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
[2019-12-06] MEDS: sodium chloride 0.9% (100 ml) 100 ML 50 ML (12:23)
[2019-12-06] MEDS: quetiapine 25 mg Tablet 50 MG PO (20:12)
[2019-12-07] VITALS (7 sets, daily range): BP systolic 108–143; BP diastolic 64–83; PULSE 62–86; RESP 16–20; TEMP 36.6–36.7; O2SAT 96–98
[2019-12-07] MEDS: morphine 4 mg/mL SDV 1 mL 2 MG IVP ×4 (00:35→23:17)
[2019-12-07] MEDS: pantoprazole 40 mg SDV IVP (02:25)
[2019-12-07 05:22] LABS: Basophils % 0.4 %; Eosinophils # 0.3 10^3/uL (0.0-0.8); Hemoglobin 8.4 g/dL (11.7-16.6); Lymphocytes # 2.5 10^3/uL (0.8-4.8); Lymphocytes % 34.9 %; Mean Corpuscular HGB Conc 31.1 g/dL (30.0-36.0); Mean Corpuscular Hemoglobin 29.9 pg (28.0-34.0); Mean Corpuscular Volume 96.1 fL (80-94); Mean Platelet Volume 11.1 fL (7.4-10.4); Monocytes # 0.7 10^3/uL (0.2-0.9); Monocytes % 9.8 %; Neutrophils # 3.64 10^3/uL (1.8-7.7); Neutrophils % 50.3 %; Nucleated Red Blood Cells % 0 %; Platelet Count 247 10^3/cmm (130-400); Red Blood Count 2.81 10^6/uL (4.1-5.3); Red Cell Distribution Width 13.8 % (12.1-15.1); White Blood Count 7.2 10^3/uL (4.0-10.0)
[2019-12-07 05:55] LABS: Alanine Aminotransferase 22 U/L (0-41); Albumin Level 3.5 g/dL (3.5-5.2); Alkaline Phosphatase 34 IU/L (40-130); Anion Gap 11.9 (5-19); Aspartate Amino Transferase 20 U/L (0-40); Blood Urea Nitrogen 5 mg/dL (6-20); Calcium 8.1 mg/dL (8.5-10.5); Carbon Dioxide 24 mmol/L (22-29); Chloride 106 mmol/L (98-107); Glomerular Filtration Rate 69.8 mL/min (90-130); Glucose 126 mg/dL (65-115); Osmolality Calculated 285 mOsm/kg (285-295); Potassium 3.9 mmol/L (3.5-5.1); Sodium 138 mmol/L (136-145); Total Bilirubin 0.2 mg/dL (0.15-1.2); Total Protein 5.5 g/dL (6.6-8.7)
--- NOTE | 2019-12-07 05:56 | PM.PN ---
Subjective Subjective: Interval history: The patient was having some right lower quadrant pain yesterday but said it was starting back by his tailbone and coming around the side of his body. He has a history of chronic back pain. He continues to pass flatus but has not had a bowel movement yet. His nausea has improved. He would like some solid food. Vitals/I&O/Wt Last Vital Signs Temp 97.9 F 12/07/19 04:00 Pulse 75 12/07/19 04:00 Resp 17 12/07/19 04:00 BP 108/69 12/07/19 04:00 Pulse Ox 98 12/07/19 04:00 12/06/19 12/06/19 12/07/19 14:59 22:59 06:59 Intake Total 2976 / 5623 2167 / 5623 480 / 5623 Output Total 700 / 2450 700 / 2450 1050 / 2450 Balance 2276 / 3173 1467 / 3173 -570 / 3173 Physical Exam Narrative: EXAM NARRATIVE: Patient remains afebrile. Bowel sounds are present. The patient did have some tenderness in the right lower quadrant on initial examination but then when I distract him it does not appear to be reproducible. Data : 12/07/19 04:12 12/07/19 04:12 A&P Assessment and plan (1) Duodenal erosion: The patient was found to have a duodenal erosion/early ulceration with concomitant gastritis and duodenitis. There was no ongoing bleeding or obvious evidence of recent bleeding. CLOtest reading is still officially pending, but upon examining the results personally this morning it is almost certain to be negative. I suspect the patient's pain is emanating from his back. He continues to pass flatus. Soft diet. Change to oral pain medication. Status: Acute Attestations Medical Necessity Statement*: See admitting service's notation. 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
--- NOTE | 2019-12-07 06:54 | PC.NURSE ---
Patient sitting up in bed, reports pain of 8 on 0-10 pain scale, requesting oral norco dose be changed to norco 10/325 instead of 5/325, Dr. Yu notified, discussed plan of care, verbalized understanding, still awaiting BM for stool culture, diet advanced for breakfast of GI soft.
[2019-12-07 07:41] LABS: H. Pylori / CLO Test Negative
[2019-12-07] MEDS: levothyroxine 112 mcg Tablet PO (08:16)
[2019-12-07] MEDS: sertraline 50 mg Tablet PO (08:16)
[2019-12-07] MEDS: HYDROcodone-acetaminophen 5-325 mg Tablet PO (08:16)
[2019-12-07] MEDS: metoprolol tartrate 25 mg Tablet PO ×2 (08:16→17:19)
[2019-12-07] MEDS: gabapentin 400 mg Capsule 800 MG PO ×3 (08:16→20:01)
[2019-12-07] MEDS: dextrose 5%-sod chloride 0.45% 1,000 ML 100 ML IV (08:17)
--- NOTE | 2019-12-07 11:16 | PM.PN ---
Subjective Subjective: Interval history: No acute events overnight. Hospital course noted. Examination patient sitting at bedside. Complaining of occasional dizziness while trying to get out of bed. Patient had just had a bowel movement which was black tarry in color. Denies of having any nausea, abdominal pain. Patient has been tolerating diet well. Patient has remained hemodynamically stable. Vitals/I&O/Wt Last Vital Signs Temp 98.0 F 12/07/19 07:42 Pulse 69 12/07/19 07:42 Resp 18 12/07/19 07:42 BP 143/83 12/07/19 07:42 Pulse Ox 98 12/07/19 07:42 12/06/19 12/07/19 12/07/19 22:59 06:59 14:59 Intake Total 2167 / 5143 480 / 5623 345 / 345 Output Total 700 / 1400 1050 / 2450 Balance 1467 / 3743 -570 / 3173 345 / 345 Physical Exam Narrative: EXAM NARRATIVE: General: No acute distress, AO x3, obese HEENT: PERRLA, pupils bilaterally equal and reactive Chest: Normal vesicular breath sounds, no added sounds, equal good air entry bilaterally CVS: S1-S2 regular, no murmurs, no tachycardia, no gallops, no rubs Abdomen: Soft, nontender, no organomegaly, bowel sounds hyperactive Neuro: No focal deficits, no facial deformity, AO x3, power 5/5 in all limbs Data : 12/07/19 04:12 12/07/19 04:12 A&P Assessment and plan (1) Acute blood loss anemia: Hemoglobin stable today morning. 8.4 today. Patient now has received 3 units [address]BC transfusion. CT abdomen pelvis, CTA results appreciated from day of admission. EGD results from 727 appreciated showing duodenal erosion/early ulceration with concomitant gastritis and duodenitis. Continue with GI soft diet for now. Check orthostatic blood pressure. Check hemoglobin hematocrit every 12 hours for now. If hemoglobin trending down below 7 will transfuse him again. Most likely black tarry bowel movement right now because of old GI bleed. Continue with Protonix 40 mg twice daily. Change from IV to oral. Continue to avoid aspirin, NSAIDs. Status: Acute (2) Duodenal erosion: Status: Acute (3) Acute upper gastrointestinal bleeding: Status: Acute (4) Melanotic stools: As above. Status: Acute (5) Abdominal pain: Cramping, nausea suspected secondary to cathartic effect, duodenal erosion, gastritis and duodenitis. Also having lower abdominal pain. As above. Morphine. PPI, Zofran. Status: Inactive Qualifiers: Abdominal location: generalized Qualified Code(s): R10.84 - Generalized abdominal pain (6) Obstructive sleep apnea: Nightly CPAP. Status: Acute (7) Cervical radiculopathy: Status: Acute (8) Hypothyroidism: Recent TSH 5. Appears levothyroxine has been recently increased to 112. Continue. Status: Chronic (9) Diabetes: Status: Chronic (10) Lumbar back pain with radiculopathy affecting left lower extremity: Status: Acute Additional A&P Information Type 2 diabetes: Insulin scale at moderate dose. Check blood glucose before meals and at bedtime. Hypertension: Goal blood pressure less than 140/90 mmHg. Check orthostatic as above. For now hold off on losartan as patient is complaining of dizziness with sitting up. Continue chronic medication like statin, fenofibrate, gabapentin, levothyroxine. Full code GI soft diet as per surgery. DVT prophylaxis SCDs because of anemia Attestations Medical Necessity Statement*: Acute blood loss anemia, GI bleed, duodenitis, gastritis Time Spent in Patient Care: Greater than 35 minutes (>than 50% of time spent in counselling and/or direct pt care on unit). 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
[2019-12-07] MEDS: sodium chloride 0.9% 1,000 ML 50 ML IV (11:39)
[2019-12-07] MEDS: HYDROcodone-acetaminophen 10-325 mg Tablet 1 TAB PO (11:53)
--- NOTE | 2019-12-07 12:27 | ANE.PACU2 ---
Inpatient post-anesthesia follow up: Airway intact: Yes Vital signs: Temperature 98.1 F Pulse Rate 66 Respiratory Rate 18 Blood Pressure 113/72 Pulse Oximetry 96 Oxygen Delivery Me thod Room Air Oxygen Flow Rate 6 Fraction of Inspir ed Oxygen Hydration adequate: Yes Nausea and vomiting: No Pain level: 1 Mental status: Baseline
[2019-12-07 17:01] LABS: Glucose Point of Care 120 mg/dL (70-110)
[2019-12-07] MEDS: pantoprazole DR 40 mg Tablet PO (17:19)
[2019-12-07 18:18] LABS: Hemoglobin 8.6 g/dL (11.7-16.6)
[2019-12-07] MEDS: quetiapine 25 mg Tablet 50 MG PO (20:01)
[2019-12-07 20:47] LABS: Glucose Point of Care 177 mg/dL (70-110)
[2019-12-08 00:18] VITALS: BP 132/67; PULSE 69; RESP 20; TEMP 36.8; O2SAT 97
[2019-12-08 04:00] VITALS: BP 135/72; PULSE 55; RESP 13; TEMP 36.4; O2SAT 96
[2019-12-08 05:24] LABS: Basophils % 0.4 %; Eosinophils # 0.3 10^3/uL (0.0-0.8); Eosinophils % 4.6 %; Hematocrit 27.3 % (42.0-52.0); Hemoglobin 8.4 g/dL (11.7-16.6); Lymphocytes # 2.5 10^3/uL (0.8-4.8); Lymphocytes % 35.4 %; Mean Corpuscular HGB Conc 30.8 g/dL (30.0-36.0); Mean Corpuscular Hemoglobin 29.8 pg (28.0-34.0); Mean Corpuscular Volume 96.8 fL (80-94); Mean Platelet Volume 11.2 fL (7.4-10.4); Monocytes # 0.6 10^3/uL (0.2-0.9); Monocytes % 8.6 %; Neutrophils # 3.62 10^3/uL (1.8-7.7); Neutrophils % 50.6 %; Nucleated Red Blood Cells % 0 %; Platelet Count 281 10^3/cmm (130-400); Red Blood Count 2.82 10^6/uL (4.1-5.3); Red Cell Distribution Width 13.5 % (12.1-15.1); White Blood Count 7.2 10^3/uL (4.0-10.0)
[2019-12-08] MEDS: sodium chloride 0.9% 1,000 ML 50 ML IV (06:16)
--- NOTE | 2019-12-08 06:57 | P.PN_ITS ---
Subjective Subjective: Interval history: The patient says he had a black tarry bowel movement yesterday after breakfast, but has not had any since. He still has some lower abdominal pain but is passing a lot of flatus. He seems to be tolerating his oral diet well. Vitals/I&O/Wt Last Vital Signs Temp 97.6 F 12/08/19 04:00 Pulse 55 L 12/08/19 04:00 Resp 13 12/08/19 04:00 BP 135/72 12/08/19 04:00 Pulse Ox 96 12/08/19 04:00 12/07/19 12/07/19 12/08/19 14:59 22:59 06:59 Intake Total 345 / 1275.833 930.833 / 1275.833 Output Total 1526 / 2351 825 / 2351 Balance 345 / -1075.167 -1526 / -1075.167 105.833 / -1075.167 Physical Exam Narrative: EXAM NARRATIVE: The patient's exam is about the same. He does have very mild lower abdominal tenderness on exam, but it does not always seem reproducible. Data : 12/08/19 04:12 12/07/19 04:12 Micro: Microbiology 12/07/19 11:00 C.difficile Toxin B Gene (PCR) - Final Stool Routine Collection A&P Assessment and plan (1) Duodenal erosion: The patient was found to have a duodenal erosion/early ulceration with concomitant gastritis and duodenitis. There was no ongoing bleeding or obvious evidence of recent bleeding. CLOtest negative. The patient's hemoglobin appears to be staying stable at this point. I suspect the bowel movement that he passed yesterday was suggestive of previous/old bleeding. Status: Acute Attestations Medical Necessity Statement*: See admitting service's notation. 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
[2019-12-08 07:02] LABS: Glucose Point of Care 107 mg/dL (70-110)
[2019-12-08 07:35] VITALS: BP 130/67; PULSE 68
[2019-12-08] MEDS: atorvastatin 40 mg Tablet 20 MG PO (08:30)
[2019-12-08] MEDS: metoprolol tartrate 25 mg Tablet PO (08:30)
[2019-12-08] MEDS: levothyroxine 112 mcg Tablet PO (08:30)
[2019-12-08] MEDS: gabapentin 400 mg Capsule 800 MG PO (08:30)
[2019-12-08] MEDS: fenofibrate 145 mg Tablet PO (08:30)
[2019-12-08] MEDS: sertraline 50 mg Tablet PO (08:30)
[2019-12-08] MEDS: pantoprazole DR 40 mg Tablet PO (08:30)
--- NOTE | 2019-12-08 08:47 | P.DS_ITS ---
Discharge Providers Date of Admission: 12/05/19 00:58 Date of Discharge: December 08, 2019 Attending Provider at Admission: Frahat Dennis MD Attending Provider at Discharge: Parker Jones MD Consults: Surgery: Dr. Solomon Primary Care Provider: Qi Muhammad DO Diagnoses at Discharge Discharge Diagnosis (1) Duodenal erosion: Status: Acute (2) Anemia due to blood loss: Status: Acute (3) Acute upper gastrointestinal bleeding: Status: Acute (4) Melanotic stools: Status: Acute (5) Acute constipation: Status: Acute (6) Hypothyroidism: Status: Chronic (7) Lumbar back pain with radiculopathy affecting left lower extremity: Status: Acute Reason for Visit Reason for Visit: DIZZY/DARK STOOLS Hospital Course Discharge Summary: Ben Nielsen is a 54 year old male diastolic heart failure, hypothyroidism, who was recently evaluated in the ER for abdominal pain on November 27, he was diagnosed with constipation and was discharged home on bowel regimen coming in today for chief complaint of worsening abdominal pain and lightheadedness. Patient is stating that in last 1 week he has used a lot of prescribed and [id number] laxatives and stool softeners for his constipation, he has been having very small bowel movements for last few days, he has not been feeling well for last 48 hours, he did not eat much as well, today he woke up with some nausea, he started having abdominal cramps, went to the bathroom to have a bowel movement, he started experiencing black tarry stool, his toilet bowl was completely full of dark color stool. Afterwards he started feeling dizzy, lethargic and felt like he is going to pass out. He was in his truck when he felt extremely lethargic and called EMS to take him to the ER for further evaluation. Patient is denying previous history of peptic ulcer disease [id number] NSAID use, H. pylori infection, he has been scheduled for liver MRI next Saturday for incidental finding of hyperdense lesion of liver found on previous CT scan. Diagnosis in the ER revealed normal hemodynamics, positive orthostatic symptoms, hemoglobin dropped from 12to 7.2 and just 1 week, patient is status post 1 unit PRBC, hemodynamically stable, non-tachycardic, afebrile, lactic acid 2.2, mild leukocytosis, he has abdominal tenderness to deep palpation, I have requested CT abdomen pelvis to rule out acute mesenteric ischemia, CT abdomen pelvis did not show any ischemic colitis or acute remarkable findings other than hepatic steatosis, in the ER FOBT positive, recent TSH 5.3. He was admitted to the hospital for GI bleed. His antihypertensives were withheld. Surgery was consulted and he underwent endoscopy on December 04 which was consistent with duodenal erosion/early ulceration with concomitant gastritis and duodenitis. He was started on PPIs. During hospitalization patient required 2 units of blood transfusion. Gradually his diet was advanced and his hemoglobin remained stable to around 8.4 on the day of discharge. During hospitalization patient consistently complained of pain in right flank radiating to right lower quadrant and back. CT abdomen was repeated which was negative for any acute pathology. Patient did not have any leukocytosis or fever or any changes on the CT scan to suggest of colitis. Patient's pain is most likely secondary to longstanding lumbar back pain with radiculopathy. He is been discharged hemodynamically stable condition with advised to avoid NSAIDs and aspirin for next 2 weeks. He is to follow-up with his primary care provider within next 1 week to repeat hemoglobin. He is also advised to make an appointment at pain clinic which he follows up regularly. Physical Exam Narrative: EXAM NARRATIVE: General: No acute distress, AO x3, obese HEENT: PERRLA, pupils bilaterally equal and reactive Chest: Normal vesicular breath sounds, no added sounds, equal good air entry bilaterally CVS: S1-S2 regular, no murmurs, no tachycardia, no gallops, no rubs Abdomen: Soft, nontender, no organomegaly, bowel sounds hyperactive Neuro: No focal deficits, no facial deformity, AO x3, power 5/5 in all limbs Discharge Data Data Completed and Pending: Completed Studies During Hospitalization Category Date Time Status CT abdomen pelvis w con* [id number] Urge nt Cat Scan 12/04/19 19:[address] angio abdomen pelvis [id number] Stat Cat Scan 12/04/19 23:18 Completed Pending at discharge Category Date Time Status Enteric Bacterial Panel by PCR Fannie ine [facility] 12/07/19 11:00 Received Enteric Parasite Panel by PCR Jose ne [facility] 12/07/19 11:00 Received Hemoglobin and He matocrit Q12H Lab 12/08/19 18:00 Ordered Labs from last 24 hours 12/08/19 12/08/19 12/07/19 06:45 04:12 19:42 WBC 7.2 RBC 2.82 L Hgb 8.4 L Hct 27.3 L MCV 96.8 H MCH 29.8 MCHC 30.8 RDW 13.5 Plt Count 281 MPV 11.2 H Neut % (Auto) 50.6 Lymph % (Auto) 35.4 [place] % (Auto) 8.6 Eos % (Auto) 4.6 Baso % (Auto) 0.4 Neut # (Auto) 3.62 Lymph # (Auto) 2.5 [place] # (Auto) 0.6 Eos # (Auto) 0.3 Baso # (Auto) 0.0 Nucleated RBC % (a uto) 0 Nucleated RBCs # 0.0 POC Glucose 107 177 12/07/19 12/07/19 17:54 16:39 WBC RBC Hgb 8.6 L Hct 27.0 L MCV MCH MCHC RDW Plt Count MPV Neut % (Auto) Lymph % (Auto) [place] % (Auto) Eos % (Auto) Baso % (Auto) Neut # (Auto) Lymph # (Auto) [place] # (Auto) Eos # (Auto) Baso # (Auto) Nucleated RBC % (a uto) Nucleated RBCs # POC Glucose 120 Vitals: Last Vital Signs Temp 97.6 F 12/08/19 04:00 Pulse 68 12/08/19 07:35 Resp 13 12/08/19 04:00 BP 130/67 12/08/19 07:35 Pulse Ox 96 12/08/19 04:00 Discharge Plan Discharge Patient Disposition: Home Condition: Stable Prescriptions: New pantoprazole 40 mg Tablet,Delayed Release (Dr/Ec) 40 mg PO BID Qty: 30 RF: 0 Carafate 100 mg/mL suspension 1 gm PO TID 28 Days Qty: 840 RF: 0 Continued quetiapine [Seroquel] 50 mg tablet 50 mg PO BEDTIME Qty: 90 RF: 2 sertraline [Zoloft] 50 mg tablet 50 mg PO DAILY Qty: 90 RF: 2 melatonin 3 mg tablet 3 mg PO BEDTIME PRN (Reason: sleep) Qty: 30 RF: 3 nitroglycerin 0.4 mg tablet, sublingual 0.4 mg SUBLINGUAL ONCE PRN (Reason: Chest Pain) RF: 0 gabapentin 800 mg tablet 800 mg PO TID Qty: 90 RF: 0 tramadol 300 mg tablet extended release 24 hr 300 mg PO DAILY 30 Days Qty: 30 RF: 0 tizanidine 4 mg tablet 4 mg PO TID PRN (Reason: muscle spasticity) Qty: 90 RF: 0 hydrocodone-acetaminophen 10-325 mg tablet 1 tab PO BID PRN (Reason: pain, severe) 30 Days Qty: 45 RF: 0 potassium chloride 20 mEq tablet extended release 20 meq PO DAILY 30 Days Qty: 30 RF: 6 metoprolol tartrate 25 mg tablet 25 mg PO BID Qty: 180 RF: 3 fenofibrate nanocrystallized [Tricor] 145 mg tablet 145 mg PO DAILY Qty: 30 RF: 3 atorvastatin [Lipitor] 10 mg tablet 10 mg PO DAILY Qty: 30 RF: 3 Janumet 50-500 mg tablet 1 tab PO BID Qty: 60 RF: 3 levothyroxine 112 mcg tablet 112 mcg PO DAILY Qty: 30 RF: 0 albuterol sulfate 90 mcg/actuation HFA aerosol inhaler 2 inh INHALATION Q4H PRN (Reason: shortness of breath or wheezing) Qty: 18 RF: 0 metoclopramide HCl [Reglan] 10 mg tablet 10 mg PO Q6H PRN (Reason: nausea and vomiting) Qty: 20 RF: 0 Held aspirin 81 mg tablet,delayed release (DR/EC) 162 mg PO BEDTIME RF: 0 Hold Instructions: Resume on 12/22/19. Discontinued losartan 50 mg tablet 50 mg PO DAILY Qty: 90 RF: 1 Discharge Orders: Discharge Order (Routine); Ordered 12/08/19 Ordered By: Parker Jones Referrals: Qi Muhammad DO [Primary Care Provider] - 4-7 days Discharge Diet: Advance as tolerated, Regular and GI Soft Discharge Activity: Resume usual activity Activity Restrictions/Additional Instructions: Take GI soft/bland diet for next 7 to 10 days and then advance gradually to regular diet as tolerated. Please follow-up with your primary provider within next 1 week to recheck hemoglobin. Please try to avoid NSAIDs, aspirin for next 2 weeks that can potentiate your GI bleed again. Discharge Attestations Time Spent in Discharge Care*: greater than 30 min Specific Discharge Activities: Specific discharge activities: educating patient, educating and/or supporting family/caregiver, discussing with pcp/other providers, discussing with telehealth case manager/social workers/dc planners, documenting/other paperwork and evaluating patient/reviewing data Status at Discharge: Cognitive status at discharge: cognitively intact , Behavioral status at discharge: cooperative , Functional status at discharge: independent ambulation Overall status at discharge: patient is back to baseline Quality Metrics Clinical Quality Measures During this hospital stay, did patient experience: None Coding Level of Care Code 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
--- NOTE | 2019-12-08 10:48 | PC.NURSE ---
Patient reported a pain of 7/10 but refused the PRN Oxycodone when offered stating, all those pills don't work. The only thing that works is the Morphine. Explained to patient why the Morphine was discontinued and the reasoning why hospitalists were limited on what medications they can prescribe for home medications after discharge and how they were not able to follow up after discharge. Patient states he receives care from pain management and when explained that when he follows up with pain management he needed to explain to him about the pain meds not working. Patient stated he has and physician would not prescribe anything else. Dr. Jones spoke with patient in this nurse's presence and reinforced this teaching. Described most of the pain was stemming from his back and discussed results of the CT and EGD that was done inpatient. Patient verbalized understanding. Patient stabilized for discharge with discharge teaching to take medications as prescribed including his new medication of Protonix and Carafate. Discharge instructions printed and give to patient as well. IV discontinued. Covered with 2x2 and taped. Patient tolerated well.
[2019-12-08 10:52] LABS: Glucose Point of Care 150 mg/dL (70-110)
[2019-12-08 12:58] VITALS: BP 135/72; PULSE 55; RESP 13; TEMP 36.4; O2SAT 96
== END 2019-12-08 12:00 | disposition home or self-care (01) | DRG 378 ==
LOC: ER 22:42 → MEDSURG 12-05 01:10
PROVIDERS: Family Medicine; Internal Medicine; Physician Assistant; Surgery; Admitting Provider Internal Medicine; PCP Family Medicine; Visit Provider Student in an Organized Health Care Education/Training Program
PROC: 0DJ08ZZ Inspection of Upper Intestinal Tract, Via Natural or Artificial Opening Endoscopic (ICD-10-PCS; CPT 43235; principal; 2019-12-05 13:35)
DX: K92.2 Gastrointestinal hemorrhage, unspecified (principal); F33.9 Major depressive disorder, recurrent, unspecified; I50.30 Unspecified diastolic (congestive) heart failure; D62 Acute posthemorrhagic anemia; E11.9 Type 2 diabetes mellitus without complications; I11.0 Hypertensive heart disease with heart failure; K92.1 Melena; E03.9 Hypothyroidism, unspecified; M54.12 Radiculopathy, cervical region; G47.33 Obstructive sleep apnea (adult) (pediatric); Z79.82 Long term (current) use of aspirin; G89.29 Other chronic pain; F41.9 Anxiety disorder, unspecified; I25.2 Old myocardial infarction; Z86.73 Personal history of transient ischemic attack (TIA), and cerebral infarction without residual deficits; Z86.14 Personal history of Methicillin resistant Staphylococcus aureus infection; Z87.891 Personal history of nicotine dependence
CPT/HCPCS: 12345; 36415; 36416; 36430; 43239; 74174; 74177; 80048; 80053; 81003; 82272; 82962; 83605; 83880; 84484; 85014; 85018; 85025; 86677; 86850; 86900; 86920; 87077; 87493; 87506; 93005; 96375; 99284; C9113; G0378; J1170; J2270; J2405; J2704; J7030; J7799; P9016; Q0169; Q9967

== ENCOUNTER → 2019-12-09 11:08 | Outpatient (BNVA) | payer SELFPAY | PROVIDERS: PCP Family Medicine; Visit Provider Anesthesiology Pain Medicine | DX: G89.29 Other chronic pain (principal); M47.22 Other spondylosis with radiculopathy, cervical region; M54.9 Dorsalgia, unspecified; M96.1 Postlaminectomy syndrome, not elsewhere classified; Z79.899 Other long term (current) drug therapy | CPT/HCPCS: 99212 ==

== ENCOUNTER 2019-12-14 13:29 | Outpatient (CLI) | payer SELFPAY ==
--- NOTE | 2019-12-14 14:04 | MRR_ITS ---
PROCEDURE INFORMATION: Exam: MR Abdomen Without and With Contrast Exam date and time: 12/14/2019 2:15 PM Age: 54 years old Clinical indication: Condition or disease; Other: Liver lesion; Prior surgery; Surgery type: Appy, gb, hernia; Patient HX: CT scan done 2 weeks ago lesion found on liver. TECHNIQUE: Imaging protocol: MR of the abdomen without and with intravenous contrast. COMPARISON: CT abdomen pelvis w con* [id number] 12/04/2019 7:18 PM FINDINGS: Lungs: Visualized lungs are clear. Pleural space: No pleural effusion. Heart: Stable mild enlargement of the visualized portions of the heart. Liver: Mildly lobulated focus in in segment 6 of the liver. This is hypointense on T1 and hyperintense on T2. This measures 1.2 x 1.3 cm, stable in size compared with 12/04/2019 (series 5, image 12). This shows diffuse hyperenhancement on the postcontrast sequences. There is moderate loss of signal intensity diffusely in the liver on the out of phase sequence, consistent with moderate fatty infiltration. Gallbladder and bile ducts: Stable findings consistent with a previous cholecystectomy. No biliary ductal dilatation. Pancreas: The pancreas is unremarkable. No pancreatic ductal dilatation. Spleen: The spleen is unremarkable. Adrenals: The right and left adrenal glands are unremarkable. Kidneys and ureters: The right and left kidneys are unremarkable. Stomach and bowel: The stomach is collapsed, which can limit evaluation. No focal abnormality in the stomach otherwise. The visualized bowel is unremarkable. Intraperitoneal space: No ascites. 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 No evidence for aortic aneurysm or aortic dissection. Veins: Vasculature: Hepatic veins, portal veins, splenic vein, and SMV are patent. Lymph nodes: No lymphadenopathy. Bones/joints: Multilevel degenerative changes of varying severity in the visualized spine. Moderate spinal canal stenosis at L3-L4. Soft tissues: No acute abnormality in the extra-abdominal soft tissues. No acute abnormality in the extra-abdominal soft tissues. MR/MR abdomen wo/w con* [id number] IMPRESSION: 1. Small hyperenhancing focus in segment 6 of the liver, stable in size. Differential diagnosis includes a small hemangioma versus focal nodular hyperplasia of versus a hepatic hemangioma, among others. Recommend follow-up MRI in 6 months to ensure stability. 2. Moderate fatty infiltration of the liver. 3. Multilevel degenerative changes of varying severity in the visualized spine. Moderate spinal canal stenosis at L3-L4. 4. 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 5. Incidental/nonacute findings are listed in the report.
== END 2019-12-14 13:30 | disposition home or self-care (01) ==
LOC: RADWPI 13:33
PROVIDERS: PCP Family Medicine; Visit Provider Family Medicine
DX: R16.0 Hepatomegaly, not elsewhere classified (principal); K76.0 Fatty (change of) liver, not elsewhere classified; M48.061 Spinal stenosis, lumbar region without neurogenic claudication
CPT/HCPCS: 74183; A9579

== ENCOUNTER → 2020-01-01 11:11 | Outpatient (BNVA) | payer SELFPAY | PROVIDERS: PCP Family Medicine; Visit Provider Nurse Practitioner Family | DX: Z11.59 Encounter for screening for other viral diseases (principal); Z20.828 Contact with and (suspected) exposure to other viral communicable diseases; J06.9 Acute upper respiratory infection, unspecified | CPT/HCPCS: 87635 ==

== ENCOUNTER 2020-01-04 19:48 | Emergency (ER) | payer SELFPAY ==
[2020-01-04 19:57] VITALS: BP 158/82; PULSE 82; RESP 14; TEMP 37.3; O2SAT 98; BMI 36.6
[2020-01-04 20:10] VITALS: BP 136/84; PULSE 68; O2SAT 96
--- NOTE | 2020-01-04 20:11 | XR_ITS ---
WS: [id number] Exam: XR chest 1V portable [id number] Date/Time of Exam: 01/04/2020 8:11 PM Reason For Exam: sob Findings: Comparison 09/24/2019. The lungs are clear and fully expanded. Normal cardiomediastinal structures and bony elements. No ple ural effusions. XR/XR chest 1V portable [id number] IMPRESSION: 1. No acute cardiopulmonary finding.
--- NOTE | 2020-01-04 20:16 | ECG_ITS ---
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 Measurements Intervals [employer] Rate: 69 P: 56 [place]: 152 QRS: 61 QRSD: 93 T: 73 QT: 381 QTc: 409 Interpretive Statements SINUS RHYTHM POSSIBLE LEFT ATRIAL ENLARGEMENT [-0.1mV P WAVE IN V1/V2] Compared to ECG 12/04/2019 20:13:51 T-wave abnormality no longer present Electronically Signed On 01-05-2020 7:15:46 CDT by Susana Villasenor M.D. [id number]
--- NOTE | 2020-01-04 20:17 | ED_ITS ---
HPI - COVID General: Chief Complaint: COVID symptoms Stated Complaint: covid +/facial swelling Time Seen by Provider: 01/04/20 20:10 Source: patient Mode of arrival: ambulatory Limitations: no limitations Triage information: Has fever, cough or shortness of breath . Exposure to COVID + person last 14 days History of Present Illness: HPI Narrative: Ben is a 54-year-old male who tested positive for Covid 2 days ago. He states today he started feeling short of breath along with having body aches and low-grade fever. He states he also had a cough. Patient here is resting comfortably in the room is 98% on room air. He has a history of CHF. He denies any worsening improving factors. Denies any fevers. COVID 19 common symptoms: positive non-productive cough, dyspnea and throat pain; negative fever(s), chills, body aches, headache(s), nausea, vomiting or diarrhea COVID 19 other sytmptoms: negative chest pain COVID Results: SARS-CoV-2 RNA (RT-PCR) Detected (NOT DETECTED) A 01/01/20 11:11 01/01/20 Nasal/Oral Coronavirus 2019 PCR N 09/02/19 17:08 09/02/19 Review of Systems Const: Denies: fever(s), chills, body aches or change in appetite Eyes: Denies: blurry vision or eye discomfort ENMT: Reports: throat pain Card: Denies: chest pain Resp: Reports: dyspnea and non-productive cough GI: Denies: abdominal pain, nausea, vomiting or diarrhea : Denies: dysuria Musc: Denies: neck pain or back pain Skin/Breast: Denies: rash Neuro: Denies: headache(s) Psych: Denies: depression Cornelius/Lymph: Denies: easy bruising All/Imm: Denies: urticaria PFSH ED PFSH: Medical History Anxiety with somatic features Chewing tobacco nicotine dependence Chronic low back pain Chronic neck pain Congestive heart failure Diabetes Diastolic heart failure Essential (primary) hypertension History of colon polyps History of CVA (cerebrovascular accident) 2005 --left-sided weakness History of [place] (myocardial infarction) History of TIA (transient ischemic attack) Hypertriglyceridemia Hypothyroidism Internal hemorrhoids Left ventricular hypertrophy Major depressive disorder, recurrent, moderate Melanotic stools MRSA (methicillin resistant Staphylococcus aureus) Nephrolithiasis Opioid contract exists Pain management contract signed Persistent moderate somatic symptom disorder with predominant pain Umbilical hernia Surgical History H/O neck surgery x 5 ( some of those were for a postop MRSA infection ) History of colonoscopy 12/2014 --small tubular adenoma, limited diverticulosis 02/2018 --small internal hemorrhoids S/P appendectomy S/P cholecystectomy S/P hernia repair ventral with mesh x 2 Family History Mother CHF (congestive heart failure) Thyroid disease Sister Thyroid disease Father A-fib Brother Heart disease HX STENTS Other CAD (coronary artery disease) Diabetes Social History Smoking and tobacco status: former smoker Quit status (tobacco): has quit using tobacco Year quit tobacco: 2018 - 1.5 PPD x 17 Years Second hand smoke exposure: Yes Alcohol intake: current Alcohol intake frequency: holidays/special occasions only Alcohol type: beer Lives independently: Yes Household members: spouse Marital status: Current occupational status: disabled History of recent travel: No Current gender identity: Male Physical Exam Const: COMMON NORMALS: no acute distress, patient oriented x3 and healthy appearing HENMT: COMMON NORMALS: normocephalic and atraumatic HEAD & SCALP: normocephalic and atraumatic Eye: COMMON NORMALS: Equal, round and reactive pupils present and EOMs intact bilaterally PUPIL: Yes Equal, round and reactive pupils present Neck/C-Spine: COMMON NORMALS: full ROM and supple Chest: COMMONS NORMALS: normal inspection of the chest and normal palpation of entire chest wall Resp: COMMON NORMALS: normal respiratory effort, No retractions, No use of accessory muscles and clear to auscultation bilaterally AUSCULTATION: clear to auscultation bilaterally Cardio: COMMON NORMALS: regular rate, regular rhythm and No murmurs present (Cardio) RATE: regular rate RHYTHM: regular rhythm GI: COMMON NORMALS: Normal to inspection, nondistended, normoactive bowel sounds present, Soft to palpation, non-tender and no masses PALPATION: Yes Soft to palpation Extremity: COMMON NORMALS: normal to inspection and full ROM Neuro: COMMON NORMALS: patient oriented x3, moves all extremities and no focal motor deficits Psych: COMMON NORMALS: mental status grossly normal, Normal thought process present and cooperative THOUGHT PROCESS: Normal thought process present Skin: COMMON NORMALS: no rashes or lesions noted and no wounds GENERAL SKIN EXAM: no rashes or lesions noted Course Vital Signs: Vital signs: Vital Signs Temperature 99.1 F 01/04/20 19:57 Pulse Rate 77 01/04/20 21:05 Respiratory Rate 18 01/04/20 20:36 Blood Pressure 136/84 01/04/20 21:05 Pulse Oximetry 94 01/04/20 21:05 MDM - COVID MDM Narrative Medical decision making narrative: Ben presents here with shortness of breath likely from COVID-19. X-ray showed no signs of pneumonia and he has been well- appearing here and in no distress. His pulse ox here has been 95% on room air. Patient's lab work here is normal. He has no signs of pulmonary embolism or pneumonia. Patient will be discharged with pulse oximeter and is to return if he gets less than 90. He understands and agrees to plan.49-year-old female Lab Data Result diagrams: 01/04/20 20:25 01/04/20 20:25 Labs: Lab Results 01/04/20 01/04/20 Range/Units 20:25 20:25 WBC 8.9 (4.0-10.0) 10^3/uL RBC 4.08 L (4.1-5.3) 10^6/uL Hgb 12.0 (11.7-16.6) g/dL Hct 38.5 L (42.0-52.0) % MCV 94.4 H (80-94) fL MCH 29.4 (28.0-34.0) pg MCHC 31.2 (30.0-36.0) g/dL RDW 13.6 (12.1-15.1) % Plt Count 394 (130-400) 10^3/cmm MPV 10.9 H (7.4-10.4) fL Neut % (Auto) 64.7 % Lymph % (Auto) 21.1 % [place] % (Auto) 8.8 % Eos % (Auto) 4.0 % Baso % (Auto) 0.6 % Neut # (Auto) 5.77 (1.8-7.7) 10^3/uL Lymph # (Auto) 1.9 (0.8-4.8) 10^3/uL [place] # (Auto) 0.8 (0.2-0.9) 10^3/uL Eos # (Auto) 0.4 (0.0-0.8) 10^3/uL Baso # (Auto) 0.1 (0.0-0.1) 10^3/uL Nucleated RBC % (auto) 0 % Nucleated RBCs # 0.0 /100WBC Sodium 136 (136-145) mmol/L Potassium 4.6 (3.5-5.1) mmol/L Chloride 97 L (98-107) mmol/L Carbon Dioxide 27 (22-29) mmol/L Anion Gap 16.6 (5-19) BUN 13 (6-20) mg/dL Creatinine 1.1 (0.7-1.2) mg/dL GFR Calculation 69.8 L (90-130) mL/min Glucose 158 H (65-115) mg/dL Calculated Osmolality 285 (285-295) mOsm/kg Calcium 9.4 (8.5-10.5) mg/dL Total Bilirubin 0.2 (0.15-1.2) mg/dL AST 33 (0-40) U/L ALT 31 (0-41) U/L Alkaline Phosphatase 56 (40-130) IU/L NT-Pro-B Natriuret Pep 62 (0-125) pg/mL Total Protein 7.6 (6.6-8.7) g/dL Albumin 4.5 (3.5-5.2) g/dL Globulin 3.1 (1.3-4.6) g/dL COVID Results: SARS-CoV-2 RNA (RT-PCR) Detected (NOT DETECTED) A 01/01/20 11:11 01/01/20 Nasal/Oral Coronavirus 2019 PCR N 09/02/19 17:08 09/02/19 Imaging Data CXR: Attestation: I personally reviewed and interpreted this imaging study as follows: My impression: No acute abnormality EKG Data EKG 1: Attestation: I personally reviewed and interpreted this EKG as follows: EKG interpretation date: 01/04/20 EKG interpretation time: 20:27 Interpretation: nsr hr [address] or t wave abnormalities qrs 93 qtc 400 Discharge Plan Discharge Patient Disposition: Home Clinical Impression: COVID-19 Condition: Stable Prescriptions: No Action quetiapine [Seroquel] 50 mg tablet 50 mg PO BEDTIME Qty: 90 RF: 2 sertraline [Zoloft] 50 mg tablet 50 mg PO DAILY Qty: 90 RF: 2 melatonin 3 mg tablet 3 mg PO BEDTIME PRN (Reason: sleep) Qty: 30 RF: 3 nitroglycerin 0.4 mg tablet, sublingual 0.4 mg SUBLINGUAL ONCE PRN (Reason: Chest Pain) RF: 0 gabapentin 800 mg tablet 800 mg PO TID Qty: 90 RF: 0 tramadol 300 mg tablet extended release 24 hr 300 mg PO DAILY 30 Days Qty: 30 RF: 0 tizanidine 4 mg tablet 4 mg PO TID PRN (Reason: muscle spasticity) Qty: 90 RF: 0 hydrocodone-acetaminophen 10-325 mg tablet 1 tab PO BID PRN (Reason: pain, severe) 30 Days Qty: 45 RF: 0 potassium chloride 20 mEq tablet extended release 20 meq PO DAILY 30 Days Qty: 30 RF: 6 metoprolol tartrate 25 mg tablet 25 mg PO BID Qty: 180 RF: 3 fenofibrate nanocrystallized [Tricor] 145 mg tablet 145 mg PO DAILY Qty: 30 RF: 3 atorvastatin [Lipitor] 10 mg tablet 10 mg PO DAILY Qty: 30 RF: 3 Janumet 50-500 mg tablet 1 tab PO BID Qty: 60 RF: 3 levothyroxine 112 mcg tablet 112 mcg PO DAILY Qty: 30 RF: 0 albuterol sulfate 90 mcg/actuation HFA aerosol inhaler 2 inh INHALATION Q4H PRN (Reason: shortness of breath or wheezing) Qty: 18 RF: 0 metoclopramide HCl [Reglan] 10 mg tablet 10 mg PO Q6H PRN (Reason: nausea and vomiting) Qty: 20 RF: 0 pantoprazole 40 mg Tablet,Delayed Release (Dr/Ec) 40 mg PO BID Qty: 30 RF: 0 Carafate 100 mg/mL suspension 1 gm PO TID 28 Days Qty: 840 RF: 0 Discharge Orders: Discharge Order (Routine); Ordered 01/04/20 Ordered By: Carlota Arriaga Referrals: Qi Muhammad DO [Primary Care Provider] - 1-3 days Discharge Diet: Advance as tolerated Discharge Activity: Resume usual activity Patient Instructions: Upper Respiratory Infection (ED) Coding Level of Care Code ED Route 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
[2020-01-04 20:36] VITALS: PULSE 72; RESP 18; O2SAT 96
[2020-01-04 20:40] LABS: Basophils # 0.1 10^3/uL (0.0-0.1); Basophils % 0.6 %; Eosinophils # 0.4 10^3/uL (0.0-0.8); Hematocrit 38.5 % (42.0-52.0); Lymphocytes # 1.9 10^3/uL (0.8-4.8); Lymphocytes % 21.1 %; Mean Corpuscular HGB Conc 31.2 g/dL (30.0-36.0); Mean Corpuscular Hemoglobin 29.4 pg (28.0-34.0); Mean Corpuscular Volume 94.4 fL (80-94); Mean Platelet Volume 10.9 fL (7.4-10.4); Monocytes # 0.8 10^3/uL (0.2-0.9); Monocytes % 8.8 %; Neutrophils # 5.77 10^3/uL (1.8-7.7); Neutrophils % 64.7 %; Nucleated Red Blood Cells % 0 %; Platelet Count 394 10^3/cmm (130-400); Red Blood Count 4.08 10^6/uL (4.1-5.3); Red Cell Distribution Width 13.6 % (12.1-15.1); White Blood Count 8.9 10^3/uL (4.0-10.0)
[2020-01-04] MEDS: albuterol 8 gm MDI 2 PUFF INHALATION (20:41)
[2020-01-04 21:05] VITALS: BP 136/84; PULSE 77; O2SAT 94
[2020-01-04 21:06] LABS: Alanine Aminotransferase 31 U/L (0-41); Albumin Level 4.5 g/dL (3.5-5.2); Alkaline Phosphatase 56 IU/L (40-130); Blood Urea Nitrogen 13 mg/dL (6-20); Calcium 9.4 mg/dL (8.5-10.5); Carbon Dioxide 27 mmol/L (22-29); Chloride 97 mmol/L (98-107); Creatinine Clr Calc Pharmacy 97.7994; Globulin 3.1 g/dL (1.3-4.6); Glomerular Filtration Rate 69.8 mL/min (90-130); Glucose 158 mg/dL (65-115); NT Pro B Type Natriuretic Pept 62 pg/mL (0-125); Osmolality Calculated 285 mOsm/kg (285-295); Sodium 136 mmol/L (136-145); Total Bilirubin 0.2 mg/dL (0.15-1.2); Total Protein 7.6 g/dL (6.6-8.7)
[2020-01-04] MEDS: dexamethasone 10 mg/mL INJ IVP (21:07)
[2020-01-04 21:08] LABS: Anion Gap 16.6 (5-19); Aspartate Amino Transferase 33 U/L (0-40); Potassium 4.6 mmol/L (3.5-5.1)
[2020-01-04 21:28] VITALS: BP 136/84; PULSE 81; O2SAT 81
--- NOTE | 2020-01-04 21:31 | PC.NURSE ---
PT RECEIVED PULSE OX
== END 2020-01-04 21:32 | disposition home or self-care (01) ==
PROVIDERS: Emergency Provider Emergency Medicine; PCP Family Medicine
DX: U07.1 COVID-19 (principal); I11.0 Hypertensive heart disease with heart failure; I50.30 Unspecified diastolic (congestive) heart failure; E11.9 Type 2 diabetes mellitus without complications; Z86.73 Personal history of transient ischemic attack (TIA), and cerebral infarction without residual deficits; I25.2 Old myocardial infarction; Z87.891 Personal history of nicotine dependence
CPT/HCPCS: 12345; 71045; 80053; 83880; 85025; 93005; 94640; 96374; 99283; J1100; J3535

== ENCOUNTER → 2020-02-08 11:15 | Outpatient (BNVA) | payer SELFPAY | PROVIDERS: PCP Family Medicine; Visit Provider Anesthesiology Pain Medicine | DX: G89.29 Other chronic pain (principal); M54.41 Lumbago with sciatica, right side; M96.1 Postlaminectomy syndrome, not elsewhere classified; M54.9 Dorsalgia, unspecified; M47.22 Other spondylosis with radiculopathy, cervical region; Z79.899 Other long term (current) drug therapy | CPT/HCPCS: 99213 ==

== ENCOUNTER → 2020-02-17 13:29 | Outpatient (BNVA) | payer SELFPAY | PROVIDERS: PCP Family Medicine; Visit Provider Anesthesiology Pain Medicine | DX: Z01.812 Encounter for preprocedural laboratory examination (principal); E11.9 Type 2 diabetes mellitus without complications; G89.29 Other chronic pain; M54.16 Radiculopathy, lumbar region | CPT/HCPCS: 64483; 64484; J1100; J3490 ==

== ENCOUNTER → 2020-03-24 10:48 | Outpatient (BNVA) | payer SELFPAY | PROVIDERS: PCP Family Medicine; Visit Provider Anesthesiology Pain Medicine | DX: G89.29 Other chronic pain (principal); M54.9 Dorsalgia, unspecified; M96.1 Postlaminectomy syndrome, not elsewhere classified; M47.22 Other spondylosis with radiculopathy, cervical region; Z79.899 Other long term (current) drug therapy | CPT/HCPCS: 99214 ==

== ENCOUNTER → 2020-03-30 14:54 | Outpatient (BNVA) | payer SELFPAY | PROVIDERS: PCP Family Medicine; Visit Provider Family Medicine | DX: E11.9 Type 2 diabetes mellitus without complications (principal); E03.9 Hypothyroidism, unspecified | CPT/HCPCS: 80053; 80061; 83036; 83721; 84443 ==

== ENCOUNTER 2020-04-02 11:55 | Emergency (ER) | payer SELFPAY ==
[2020-04-02 12:11] VITALS: BP 159/80; PULSE 73; RESP 14; TEMP 36.8; O2SAT 97; BMI 38.1
--- NOTE | 2020-04-02 12:45 | ED_ITS ---
HPI - Skin/Abscess/Foreign Bdy General: Chief complaint: Animal Bite Stated complaint: SPIDER BITE ON L UPPER EXTREMITY Time Seen by Provider: 04/02/20 12:19 Source: patient Mode of arrival: ambulatory Limitations: no limitations History of Present Illness: HPI narrative: Patient is a 54-year-old male who presents to ED today for evaluation of what he believes are spider bites to his left arm. Patient tells me few days ago he began noticing a small red lesion to his left upper arm and since then has noticed another lesion to the dorsum of his left wrist that is blistering . Patient is noticing arm swelling. He tells me he generally feels ill. Patient tells me he had a similar lesion to his right lower extremity that was mis-diagnosed causing me to almost lose my l eg . He reports a hx of MRSA. MD complaint: insect bite/sting (possible) Onset (ago): day(s) Tetanus up to date: yes Location: LUE Quality: burning Pain Consistency: constant Relieving factors: none Exacerbating factors: none Associated symptoms: Deny chills, fever(s), nausea or vomiting Review of Systems Const: Reports: body aches; Denies: fever(s) or chills Eyes: Denies: change in vision Card: Denies: chest pain Resp: Denies: dyspnea GI: Denies: abdominal pain, nausea, vomiting or diarrhea Musc: Reports: extremity pain and extremity swelling; Denies: neck pain, back pain, joint pain or joint swelling Skin/Breast: Reports: new lesions Neuro: Denies: headache(s), numbness in extremities, weakness in extremities or sensory changes [facility] ED PFSH: Medical History (Updated 04/02/20 @ 13:52 by STONEY Mobley) Anxiety with somatic features Chewing tobacco nicotine dependence Chronic low back pain Chronic neck pain Congestive heart failure Diabetes Diastolic heart failure Essential (primary) hypertension History of colon polyps History of CVA (cerebrovascular accident) 2005 --left-sided weakness History of [place] (myocardial infarction) History of TIA (transient ischemic attack) Hypertriglyceridemia Hypothyroidism Internal hemorrhoids Left ventricular hypertrophy Major depressive disorder, recurrent, moderate Melanotic stools MRSA (methicillin resistant Staphylococcus aureus) Nephrolithiasis Opioid contract exists Pain management contract signed Persistent moderate somatic symptom disorder with predominant pain Umbilical hernia Surgical History H/O neck surgery x 5 ( some of those were for a postop MRSA infection ) History of colonoscopy 12/2014 --small tubular adenoma, limited diverticulosis 02/2018 --small internal hemorrhoids S/P appendectomy S/P cholecystectomy S/P hernia repair ventral with mesh x 2 Family History Mother CHF (congestive heart failure) Thyroid disease Sister Thyroid disease Father A-fib Brother Heart disease HX STENTS Other CAD (coronary artery disease) Diabetes Social History Smoking and tobacco status: former smoker Quit status (tobacco): has quit using tobacco Year quit tobacco: 2017 - 1.5 PPD x 17 Years Second hand smoke exposure: Yes Alcohol intake: current Alcohol intake frequency: holidays/special occasions only Alcohol type: beer Lives independently: Yes Household members: spouse Marital status: Current occupational status: disabled History of recent travel: No Current gender identity: Male Physical Exam Const: COMMON NORMALS: no acute distress, patient oriented x3, no limitations and alert GENERAL APPEARANCE: cooperative NUTRITIONAL APPEARANCE: obese ORIENTATION/CONSCIOUSNESS: Yes awake, Yes oriented to person, Yes oriented to place and Yes oriented to time Resp: COMMON NORMALS: normal respiratory effort and clear to auscultation bilaterally AUSCULTATION: clear to auscultation bilaterally Cardio: COMMON NORMALS: regular rate and regular rhythm RATE: regular rate RHYTHM: regular rhythm Extremity: OTHER: pt has one small dime sized erythematous lesion to L upper arm that is not abscessed; he has a similar sized lesion to dorsum of L wrist with several formed vesicles; he has mild/mod swelling involving dorsum of hand, wrist, and forearm; there is mild erythema of dorsal hand and wrist; full ROM; NV intact; no lymphangitis Neuro: COMMON NORMALS: patient oriented x3, moves all extremities, no focal motor deficits and no sensory deficits noted SENSORIUM/ORIENTATION: Yes alert, Yes oriented to person, Yes oriented to place and Yes oriented to time Skin: NARRATIVE SKIN EXAM: normal apart from documentation regarding L upper extremity Course Vital Signs: Vital signs: Vital Signs Temperature 98.3 F 04/02/20 12:11 Pulse Rate 76 04/02/20 13:25 Respiratory Rate 18 04/02/20 13:25 Blood Pressure 152/87 04/02/20 13:25 Pulse Oximetry 96 04/02/20 13:25 MDM - Skin/Abscess/Foreign Bdy MDM Narrative: Medical decision making narrative: Patient not tachycardic or febrile. He has a normal white count and lactate. Patient was given a dose of IV vancomycin here and will be discharged home on Doxycycline. He was offered Bactrim as this provides better coverage for MRSA but adamantly refuses stating that he had a family member develop SJS. Strict return to ED precautions given. Lab Data: Labs: Lab Results 04/02/20 04/02/20 04/02/20 Range/Units 12:57 12:57 12:57 WBC 8.5 (4.0-10.0) 10^3/ uL RBC 5.00 (4.1-5.3) 10^6/u L Hgb 13.8 (11.7-16.6) g/dL Hct 43.8 (42.0-52.0) % MCV 87.6 (80-94) fL MCH 27.6 L (28.0-34.0) pg MCHC 31.5 (30.0-36.0) g/dL RDW 13.7 (12.1-15.1) % Plt Count 298 (130-400) 10^3/c mm MPV 10.8 H (7.4-10.4) fL Neut % (Auto) 62.7 % Lymph % (Auto) 20.8 % [place] % (Auto) 11.2 % Eos % (Auto) 4.6 % Baso % (Auto) 0.5 % Neut # (Auto) 5.31 (1.8-7.7) 10^3/u L Lymph # (Auto) 1.8 (0.8-4.8) 10^3/u L [place] # (Auto) 1.0 H (0.2-0.9) 10^3/u L Eos # (Auto) 0.4 (0.0-0.8) 10^3/u L Baso # (Auto) 0.0 (0.0-0.1) 10^3/u L Nucleated RBC % (a uto) 0 % Nucleated RBCs # 0.0 /100WBC Sodium 130 L (136-145) mmol/L Potassium 4.5 (3.5-5.1) mmol/L Chloride 96 L (98-107) mmol/L Carbon Dioxide 25 (22-29) mmol/L Anion Gap 13.5 (5-19) BUN 13 (6-20) mg/dL Creatinine 0.8 (0.7-1.2) mg/dL GFR Calculation 100.7 (90-130) mL/min Glucose 165 H (65-115) mg/dL Calculated Osmolal ity 274 L (285-295) mOsm/k g Lactic Acid 2.2 (0.5-2.2) mmol/L Calcium 8.8 (8.5-10.5) mg/dL Total Bilirubin 0.3 (0.15-1.2) mg/dL AST 23 (0-40) U/L ALT 25 (0-41) U/L Alkaline Phosphata se 76 (40-130) IU/L Total Protein 9.5 H (6.6-8.7) g/dL Albumin 4.1 (3.5-5.2) g/dL Globulin 5.4 H (1.3-4.6) g/dL Discharge Plan Discharge Patient Disposition: Home Clinical Impression: Cellulitis of arm, left Spider bite Qualifiers: Encounter type: initial encounter Injury intent: accidental or unintentional Qualified Code(s): T63.301A - Toxic effect of unspecified spider venom, accidental (unintentional), initial encounter Condition: Stable Prescriptions: New doxycycline monohydrate 100 mg capsule 100 mg PO Q12H 10 Days Qty: 20 RF: 0 No Action quetiapine [Seroquel] 50 mg tablet 50 mg PO BEDTIME Qty: 90 RF: 2 sertraline [Zoloft] 50 mg tablet 50 mg PO DAILY Qty: 90 RF: 2 melatonin 3 mg tablet 3 mg PO BEDTIME PRN (Reason: sleep) Qty: 30 RF: 3 nitroglycerin 0.4 mg tablet, sublingual 0.4 mg SUBLINGUAL ONCE PRN (Reason: Chest Pain) RF: 0 gabapentin 800 mg tablet 800 mg PO TID Qty: 90 RF: 1 tizanidine 4 mg tablet 4 mg PO TID PRN (Reason: muscle spasticity) Qty: 90 RF: 0 potassium chloride 20 mEq tablet extended release 20 meq PO DAILY 30 Days Qty: 30 RF: 6 metoprolol tartrate 25 mg tablet 25 mg PO BID Qty: 180 RF: 3 fenofibrate nanocrystallized [Tricor] 145 mg tablet 145 mg PO DAILY Qty: 30 RF: 3 Janumet 50-500 mg tablet 1 tab PO BID Qty: 60 RF: 3 furosemide 40 mg tablet 40 mg PO BID PRN (Reason: weight gain) Qty: 180 RF: 1 levothyroxine 112 mcg tablet 112 mcg PO DAILY Qty: 30 RF: 0 atorvastatin 20 mg tablet 20 mg PO DAILY Qty: 90 RF: 1 albuterol sulfate 90 mcg/actuation HFA aerosol inhaler 2 inh INHALATION Q4H PRN (Reason: shortness of breath or wheezing) Qty: 18 RF: 0 Discharge Orders: Discharge ED (Routine); Ordered 04/02/20 Ordered By: Dorene Pradhan Referrals: Qi Muhammad DO [Primary Care Provider] - Patient Instructions: Cellulitis (ED), Brown Recluse Spider Bite (ED) Activity Restrictions/Additional Instructions: Fill your antibiotics and get started on them immediately. You need to return to the emergency department if pain, redness, swelling continues to worsen despite antibiotics over the next 24 to 48 hours. Coding Level of Care Code ED [employer] for Emy Fwd Exam Expanded Problem Focused
[2020-04-02] MEDS: vancomycin 1,000 MG in sodium chloride 0.9% 250 ML 250 MG IV (12:59)
[2020-04-02 13:10] LABS: Basophils % 0.5 %; Eosinophils # 0.4 10^3/uL (0.0-0.8); Eosinophils % 4.6 %; Hematocrit 43.8 % (42.0-52.0); Hemoglobin 13.8 g/dL (11.7-16.6); Lymphocytes # 1.8 10^3/uL (0.8-4.8); Lymphocytes % 20.8 %; Mean Corpuscular HGB Conc 31.5 g/dL (30.0-36.0); Mean Corpuscular Hemoglobin 27.6 pg (28.0-34.0); Mean Corpuscular Volume 87.6 fL (80-94); Mean Platelet Volume 10.8 fL (7.4-10.4); Monocytes % 11.2 %; Neutrophils # 5.31 10^3/uL (1.8-7.7); Neutrophils % 62.7 %; Nucleated Red Blood Cells % 0 %; Platelet Count 298 10^3/cmm (130-400); Red Cell Distribution Width 13.7 % (12.1-15.1); White Blood Count 8.5 10^3/uL (4.0-10.0)
[2020-04-02 13:22] VITALS: RESP 18; O2SAT 95
[2020-04-02] MEDS: ondansetron 2 mg/ML SDV 2 mL 4 MG IVP (13:22)
[2020-04-02] MEDS: morphine 4 mg/mL SDV 1 mL IVP (13:22)
[2020-04-02 13:25] VITALS: BP 152/87; PULSE 76; RESP 18; O2SAT 96
[2020-04-02 13:30] LABS: Lactic Sepsis W/Reflex 2.2 mmol/L (0.5-2.2)
[2020-04-02 13:31] LABS: Alanine Aminotransferase 25 U/L (0-41); Albumin Level 4.1 g/dL (3.5-5.2); Alkaline Phosphatase 76 IU/L (40-130); Blood Urea Nitrogen 13 mg/dL (6-20); Calcium 8.8 mg/dL (8.5-10.5); Carbon Dioxide 25 mmol/L (22-29); Chloride 96 mmol/L (98-107); Creatinine Clr Calc Pharmacy 137.4543; Globulin 5.4 g/dL (1.3-4.6); Glomerular Filtration Rate 100.7 mL/min (90-130); Glucose 165 mg/dL (65-115); Osmolality Calculated 274 mOsm/kg (285-295); Sodium 130 mmol/L (136-145); Total Bilirubin 0.3 mg/dL (0.15-1.2); Total Protein 9.5 g/dL (6.6-8.7)
[2020-04-02 13:40] LABS: Anion Gap 13.5 (5-19); Aspartate Amino Transferase 23 U/L (0-40); Potassium 4.5 mmol/L (3.5-5.1)
[2020-04-02 14:15] VITALS: BP 142/82; PULSE 71; RESP 18; O2SAT 97
[2020-04-02 14:53] LABS: Reflex Lactate Order REFLEX LACTIC ORDERD
== END 2020-04-02 14:16 | disposition home or self-care (01) ==
PROVIDERS: Emergency Provider Physician Assistant; PCP Family Medicine
DX: T63.301A Toxic effect of unspecified spider venom, accidental (unintentional), initial encounter (principal); L03.114 Cellulitis of left upper limb; I11.0 Hypertensive heart disease with heart failure; I50.30 Unspecified diastolic (congestive) heart failure; E11.9 Type 2 diabetes mellitus without complications; Z86.73 Personal history of transient ischemic attack (TIA), and cerebral infarction without residual deficits; I25.2 Old myocardial infarction; Z87.891 Personal history of nicotine dependence
CPT/HCPCS: 12345; 80053; 83605; 85025; 87040; 96365; 96375; 99283; J2270; J2405; J3370; J7050

== ENCOUNTER → 2020-05-05 11:41 | Outpatient (BNVA) | payer OTHER, SELFPAY | PROVIDERS: PCP Family Medicine; Visit Provider Surgery | DX: Z01.812 Encounter for preprocedural laboratory examination (principal); K92.1 Melena | CPT/HCPCS: 87635 ==

== ENCOUNTER 2020-05-10 08:27 | Day surgery (SDC) | payer SELFPAY ==
[2020-05-06 10:56] VITALS: BMI 38.1
[2020-05-10 08:48] VITALS: BP 143/80; PULSE 55; RESP 18; TEMP 36.8; O2SAT 98
[2020-05-10] MEDS: sodium chloride 0.9% 1,000 ML 30 ML IV (08:57)
--- NOTE | 2020-05-10 10:34 | W.PM.OPSUD ---
Surgery/Procedure H&P Update DATE OF PROCEDURE: May 10, 2020 DATE H&P PERFORMED: 04/18/20 H&P UPDATE INFORMATION: I have reviewed H&P completed within last 30 days, I have examined patient prior to procedure and No changes to prior documentation PREOP DIAGNOSIS: upper gi symptoms PLANNED PROCEDURE: Operation Date: 05/10/20 09:30 Proposed Procedures p Colonoscopy 96139 k92.1(Not Applicable) - Jean Dumont MD
--- NOTE | 2020-05-10 10:58 | ANES.PREANE2 ---
Pre-Anesthetic Assessment Pre-Anesthetic Assessment: Height/Weight: Height 1.78 m Weight 120.656 kg Temp Pulse Resp BP Pulse Ox 98.3 F 55 L 18 143/80 98 05/10/20 08:48 05/10/20 08:48 05/10/20 08:48 05/10/20 08:48 05/10/20 08:48 Preop Diagnosis: upper gi symptoms Proposed Procedure: Operation Date: 05/10/20 09:30 Proposed Procedures p Colonoscopy 11237 k92.1(Not Applicable) - Jean Dumont MD Was Beta Foreign taken within 24 hours: Yes Last intake: Intake Last Liquid Date 05/09/20 Last Liquid Time 20:30 Last Solid Date 05/09/20 Last Solid Time 20:30 Social: Social History: Tobacco (chew) and No alcohol Exam: Pre-Anes Outpt Exam: alert, oriented x 3, clear to auscultation bilaterally and regular rate & rhythm Airway: Submandibular: WNL Cervical ROM: WNL MP: 1 Dentition: Full Additional comments: right upper back tooth missing History/ROS: Other Pulmonary: Pulmonary: Sleep apnea and SOB CV/HEM: CV/HEM: CAD, CHF and HTN Comments: chest pain from neck surgeries?? : : None reported Hepatic: Hepatic: None reported GI: GI: GERD Metabolic: Metabolic: DM, Hyperlipidemia, Morbid obesity and Thyroid Musc/skel: Musc/skel: Lower Back Pain Comments: fell off of semi and hit ground, multiple neck surgeries limited mobility Anesthetic Plan: ASA status: 3 Anesthesia: MAC Risk of > 500 ml blood loss (7ml/kg in children): No Meds/Allergies Current Medications: Current Medications Generic Name Dose Route Start Last Admin Trade Name Freq PRN Reason Stop Dose Admin Sodium Chloride 1,000 mls @ 30 ml s/hr 05/10/20 08:45 05/10/20 08:57 Sodium Chloride 0.9% IV 05/11/20 08:44 30 mls/hr .Q24H ABBIE Administration PFSH Anesthesia PFSH: Medical History Anxiety with somatic features Chronic low back pain Chronic neck pain Congestive heart failure COVID-19 Diabetes Diastolic heart failure Essential (primary) hypertension History of colon polyps History of CVA (cerebrovascular accident) 2005 --left-sided weakness History of [place] (myocardial infarction) History of TIA (transient ischemic attack) Hypertriglyceridemia Hypothyroidism Internal hemorrhoids Left ventricular hypertrophy Major depressive disorder, recurrent, moderate MRSA (methicillin resistant Staphylococcus aureus) Nephrolithiasis Persistent moderate somatic symptom disorder with predominant pain Surgical History H/O neck surgery x 5 ( some of those were for a postop MRSA infection ) History of colonoscopy 12/2014 --small tubular adenoma, limited diverticulosis 02/2018 --small internal hemorrhoids S/P appendectomy S/P cholecystectomy S/P hernia repair ventral with mesh x 2 Family History Mother CHF (congestive heart failure) Thyroid disease Sister Thyroid disease Father A-fib Brother Heart disease HX STENTS Other CAD (coronary artery disease) Diabetes Social History Smoking and tobacco status: former smoker Quit status (tobacco): has quit using tobacco Year quit tobacco: 2018 - 1.5 PPD x 17 Years Second hand smoke exposure: Yes Alcohol intake: current Alcohol intake frequency: holidays/special occasions only Alcohol type: beer Lives independently: Yes Household members: spouse Marital status: Current occupational status: disabled History of recent travel: No Current gender identity: Male Data Anesthesia Cardiac Studies: No Data to Display
[2020-05-10 11:28] VITALS: BP 126/80; PULSE 55; RESP 16; TEMP 36.6; O2SAT 96
--- NOTE | 2020-05-10 11:35 | ANE.PACU2 ---
Inpatient post-anesthesia follow up: Airway intact: Yes Vital signs: Temperature 98.3 F Pulse Rate 55 Respiratory Rate 18 Blood Pressure 143/80 Pulse Oximetry 98 Oxygen Delivery Me thod Room Air Oxygen Flow Rate Fraction of Inspir ed Oxygen Hydration adequate: Yes Nausea and vomiting: No Pain level: 1 Mental status: Baseline
[2020-05-10 11:47] VITALS: BP 161/80; PULSE 54; RESP 18; O2SAT 98
== END 2020-05-10 11:54 | disposition home or self-care (01) ==
PROVIDERS: PCP Family Medicine; Visit Provider Surgery
PROC: 0DJ08ZZ Inspection of Upper Intestinal Tract, Via Natural or Artificial Opening Endoscopic (ICD-10-PCS; CPT 43235; principal; 2020-05-10 09:30)
DX: K92.1 Melena (principal); K20.90 Esophagitis, unspecified without bleeding; K29.70 Gastritis, unspecified, without bleeding; K29.80 Duodenitis without bleeding; E11.9 Type 2 diabetes mellitus without complications; I11.0 Hypertensive heart disease with heart failure; I50.30 Unspecified diastolic (congestive) heart failure; I25.2 Old myocardial infarction; E03.9 Hypothyroidism, unspecified; Z86.14 Personal history of Methicillin resistant Staphylococcus aureus infection; Z87.891 Personal history of nicotine dependence; G47.30 Sleep apnea, unspecified; I25.10 Atherosclerotic heart disease of native coronary artery without angina pectoris; K21.9 Gastro-esophageal reflux disease without esophagitis; E78.5 Hyperlipidemia, unspecified; E66.01 Morbid (severe) obesity due to excess calories; Z68.38 Body mass index [BMI] 38.0-38.9, adult
CPT/HCPCS: 43239; 88305; 96360; 96361; J2704; J7030

== ENCOUNTER → 2020-05-24 09:19 | Outpatient (BNVA) | payer SELFPAY | PROVIDERS: PCP Family Medicine; Visit Provider Anesthesiology Pain Medicine | DX: G89.29 Other chronic pain (principal); M54.16 Radiculopathy, lumbar region; M54.9 Dorsalgia, unspecified; M96.1 Postlaminectomy syndrome, not elsewhere classified; M54.12 Radiculopathy, cervical region; Z79.899 Other long term (current) drug therapy | CPT/HCPCS: 99214 ==

== ENCOUNTER → 2020-05-30 13:21 | Outpatient (BNVA) | payer SELFPAY | PROVIDERS: PCP Family Medicine; Visit Provider Anesthesiology Pain Medicine | DX: G89.29 Other chronic pain (principal); M54.16 Radiculopathy, lumbar region; E11.9 Type 2 diabetes mellitus without complications; F17.220 Nicotine dependence, chewing tobacco, uncomplicated | CPT/HCPCS: 64483; 64484; J1100; J3490 ==

== ENCOUNTER 2020-06-14 19:11 | Inpatient (IN) | payer SELFPAY ==
[2020-06-14] VITALS (8 sets, daily range): BP systolic 138–181; BP diastolic 69–105; PULSE 57–73; RESP 16–23; TEMP 36.9; O2SAT 95–97; BMI 37.3
--- NOTE | 2020-06-14 19:15 | XR_ITS ---
WS: [id number] Portable AP upright chest, 06/14/2020 Clinical Data: cp Comparison: Portable chest, 01/04/2020. Findings: No nodules, masses or effusions are seen. The heart is normal. The pulmonary vascularity is not increased. No pneumonia or pneumothorax is seen. XR/XR chest 1V portable [id number] Impression: Negative chest.
--- NOTE | 2020-06-14 19:15 | ECG_ITS ---
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
--- NOTE | 2020-06-14 19:50 | ED_ITS ---
Documented by User: Rashaad Paredes MD 06/14/20 22:32 HPI - Chest Pain General: Chief Complaint: Chest Pain Stated Complaint: chest pain, face numbness Time Seen by Provider: 06/14/20 19:47 History of Present Illness: HPI narrative: This patient is a 54-year-old male who presents to the emergency department complaining of substernal chest pain that radiates to the left into the jaw and left arm. Patient states this pain has been present for the past 2 to 3 days. Patient states just progressively gotten worse. Patient does have chronic chest pain problems related to multiple neck surgeries according to patient and family but he states this pain is a little different. Patient does have a cardiac issue with diastolic dysfunction and he does carry nitroglycerin at home. Will do medical evaluation treat as needed. MD complaint: chest pain and chest heaviness Pain location: substernal and left chest Pain radiation: left arm and jaw/teeth Severity: moderate Associated symptoms: Deny abdominal pain, dyspnea, fever(s), nausea, palpitations or vomiting Review of Systems General: Reports: 10 or more systems reviewed and unremarkable except in HPI and below Const: Denies: fever(s), chills, body aches or fatigue Eyes: Denies: change in vision or blurry vision ENMT: Denies: throat pain, hoarseness or mouth pain Card: Reports: chest pain; Denies: palpitations, irregular heart rhythm, edema, swelling of feet/ankles or lightheadedness Resp: Denies: dyspnea, productive cough, non-productive cough, wheezing or pain on inspiration GI: Denies: abdominal pain, nausea or vomiting : Denies: flank pain, dysuria, urinary frequency, urinary urgency or urinary hesitancy Musc: Denies: neck pain, back pain, extremity pain, extremity swelling, joint pain, joint swelling, joint redness, joint warmth or limited range of motion Skin/Breast: Denies: rash, pruritus, erythema or skin tenderness Neuro: Denies: headache(s), numbness in extremities or weakness in extremities Psych: Denies: anxiety or depression PFS ED PFSH: Medical History Anxiety with somatic features Chronic low back pain Chronic neck pain Congestive heart failure COVID-19 Diabetes Diastolic heart failure Essential (primary) hypertension History of colon polyps History of CVA (cerebrovascular accident) 2005 --left-sided weakness History of IN (myocardial infarction) History of TIA (transient ischemic attack) Hypertriglyceridemia Hypothyroidism Internal hemorrhoids Left ventricular hypertrophy Major depressive disorder, recurrent, moderate MRSA (methicillin resistant Staphylococcus aureus) Nephrolithiasis Persistent moderate somatic symptom disorder with predominant pain Surgical History H/O esophagogastroduodenoscopy (05/10/20) H/O neck surgery x 5 ( some of those were for a postop MRSA infection ) History of colonoscopy 12/2014 --small tubular adenoma, limited diverticulosis 02/2018 --small internal hemorrhoids S/P appendectomy S/P cholecystectomy S/P hernia repair ventral with mesh x 2 Family History Mother CHF (congestive heart failure) Thyroid disease Sister Thyroid disease Father A-fib Brother Heart disease HX STENTS Other CAD (coronary artery disease) Diabetes Social History Smoking and tobacco status: current every day smoker smokeless tobacco Smokeless tobacco user: chewing tobacco Second hand smoke exposure: Yes Alcohol intake: current Alcohol intake frequency: holidays/special occasions only Alcohol type: beer Lives independently: Yes Household members: spouse Marital status: Current occupational status: disabled History of recent travel: No Current gender identity: Male Physical Exam Const: COMMON NORMALS: no acute distress, average body habitus, patient oriented x3, no limitations, healthy appearing, alert and well nourished HENMT: COMMON NORMALS: normocephalic, atraumatic, hearing grossly normal bilaterally, external ears normal, EAC's normal, TM's normal bilaterally, Normal external nose present, Normal nasal mucous membranes and turbinates present, moist oral mucous membranes, oropharynx normal, dentition normal and gingiva normal HEAD & SCALP: normocephalic and atraumatic NOSE: Normal external nose present and Normal nasal mucous membranes and turbinates present EXTERNAL EAR: Yes external ears normal EXTERNAL AUDITORY CANAL: EAC's normal TYMPANIC MEMBRANE: TM's normal bilaterally Neck/C-Spine: COMMON NORMALS: full ROM, no lymphadenopathy, supple, no meningeal signs, no JVD, Thyroid normal and No carotid bruits THYROID: Thyroid normal Chest: COMMONS NORMALS: normal inspection of the chest, normal palpation of entire chest wall, normal inspection of the breasts and normal palpation of the breasts Breast/axilla inspection: Yes normal inspection of the breasts BREAST/AXILLA PALPATION: Yes normal palpation of the breasts Resp: COMMON NORMALS: normal respiratory effort, No retractions, No use of accessory muscles, clear to auscultation bilaterally and percussion normal AUSCULTATION: clear to auscultation bilaterally PERCUSSION: percussion normal Cardio: COMMON NORMALS: no JVD, regular rate, regular rhythm, S1 normal heart sound present, S2 normal heart sound present, No gallops present (Cardio), No clicks present (Cardio), No murmurs present (Cardio), No rub (Cardio) and Peripheral pulses 2+ throughout RATE: regular rate RHYTHM: regular rhythm HEART SOUNDS: S1 normal heart sound present and S2 normal heart sound present PERIPHERAL PULSES: Peripheral pulses 2+ throughout GI: COMMON NORMALS: Normal to inspection, nondistended, normoactive bowel sounds present, Soft to palpation, non-tender, No hepatosplenomegaly present, no masses and no bruits PALPATION: Yes Soft to palpation and Yes No hepatosplenomegaly present : COMMON NORMALS: Yes no CVA tenderness BLADDER/KIDNEY EXAM: Yes no CVA tenderness Back/Pelvis: COMMON NORMALS: no CVA tenderness, thoracic and lumbar spine normal to inspection, no thoracic nor lumbar tenderness, thoraco-lumbar ROM normal and straight leg raise negative bilaterally Extremity: COMMON NORMALS: normal to inspection, full ROM, capillary refill normal, no joint enlargement, no clubbing, cyanosis or edema, no calf tenderness and no pedal edema Neuro: COMMON NORMALS: patient oriented x3 SENSORIUM/ORIENTATION: Yes alert MENINGEAL SIGNS: Yes no meningeal signs Course Reevaluation(s): Reevaluation #1: To have chest pain rating to his jaw and left arm. Negative evaluation in the emergency department thus far for any acute findings negative troponins negative chest x-ray negative EKGs. Patient continues to be adamant that he thinks something wrong. He is requesting to be admitted to the hospital for further evaluation and treatment. I have discussed with hospitalist. See below. Time: 22:28 Consultations: Consultation #1: I have discussed with Dr. Dennis about possible admission for observation and further evaluation. He states he will come see the patient. D-dimer is pending. Will make a disposition decision on disposition after being seen in results of D-dimer. Time: 22:29 Vital Signs: Vital signs: Vital Signs Temperature 98.4 F 06/14/20 19:35 Pulse Rate 70 06/14/20 21:44 Respiratory Rate 18 06/14/20 21:44 Blood Pressure 156/84 06/14/20 21:44 Pulse Oximetry 96 06/14/20 21:44 MDM - Chest Pain MDM Narrative: Medical decision making narrative: Patient presents for left chest pain radiating to the jaw and left arm negative cardiac evaluation thus far. Atypical type chest pain related issues and chronic neck pain issues. Lab Data: Attestation: I reviewed the patient's lab results. Labs: Lab Results 06/14/20 06/14/20 06/14/20 Range/Units 20:00 20:00 20:00 WBC 10.4 H (4.0-10.0) 10^3/ uL RBC 5.14 (4.1-5.3) 10^6/u L Hgb 14.3 (11.7-16.6) g/dL Hct 44.8 (42.0-52.0) % MCV 87.2 (80-94) fL MCH 27.8 L (28.0-34.0) pg MCHC 31.9 (30.0-36.0) g/dL RDW 14.0 (12.1-15.1) % Plt Count 298 (130-400) 10^3/c mm MPV 10.9 H (7.4-10.4) fL Neut % (Auto) 69.1 % Lymph % (Auto) 19.7 % [place] % (Auto) 8.3 % Eos % (Auto) 2.2 % Baso % (Auto) 0.4 % Neut # (Auto) 7.20 (1.8-7.7) 10^3/u L Lymph # (Auto) 2.1 (0.8-4.8) 10^3/u L [place] # (Auto) 0.9 (0.2-0.9) 10^3/u L Eos # (Auto) 0.2 (0.0-0.8) 10^3/u L Baso # (Auto) 0.0 (0.0-0.1) 10^3/u L Nucleated RBC % (a uto) 0 % Nucleated RBCs # 0.0 /100WBC D-Dimer (0-0.59) ug/mIFE U Sodium 137 (136-145) mmol/L Potassium 4.1 (3.5-5.1) mmol/L Chloride 98 (98-107) mmol/L Carbon Dioxide 28 (22-29) mmol/L Anion Gap 15.1 (5-19) BUN 12 (6-20) mg/dL Creatinine 1.0 (0.7-1.2) mg/dL GFR Calculation 77.9 L (90-130) mL/min Glucose 151 H (65-115) mg/dL Calculated Osmolal ity 287 (285-295) mOsm/k g Calcium 9.5 (8.5-10.5) mg/dL Total Bilirubin 0.3 (0.15-1.2) mg/dL AST 18 (0-40) U/L ALT 22 (0-41) U/L Alkaline Phosphata se 74 (40-130) IU/L Troponin T Baselin e 12 (0-15) ng/L Troponin T 120 Min [place] (0-15) ng/L Delta Troponin T (0-10) ABS# Total Protein 6.9 (6.6-8.7) g/dL Albumin 4.4 (3.5-5.2) g/dL Globulin 2.5 (1.3-4.6) g/dL Lipase 23 (13-60) U/L 06/14/20 06/14/20 Range/Units 20:00 21:43 WBC (4.0-10.0) 10^3/ uL RBC (4.1-5.3) 10^6/u L Hgb (11.7-16.6) g/dL Hct (42.0-52.0) % MCV (80-94) fL MCH (28.0-34.0) pg MCHC (30.0-36.0) g/dL RDW (12.1-15.1) % Plt Count (130-400) 10^3/c mm MPV (7.4-10.4) fL Neut % (Auto) % Lymph % (Auto) % [place] % (Auto) % Eos % (Auto) % Baso % (Auto) % Neut # (Auto) (1.8-7.7) 10^3/u L Lymph # (Auto) (0.8-4.8) 10^3/u L [place] # (Auto) (0.2-0.9) 10^3/u L Eos # (Auto) (0.0-0.8) 10^3/u L Baso # (Auto) (0.0-0.1) 10^3/u L Nucleated RBC % (a uto) % Nucleated RBCs # /100WBC D-Dimer 0.33 (0-0.59) ug/mIFE U Sodium (136-145) mmol/L Potassium (3.5-5.1) mmol/L Chloride (98-107) mmol/L Carbon Dioxide (22-29) mmol/L Anion Gap (5-19) BUN (6-20) mg/dL Creatinine (0.7-1.2) mg/dL GFR Calculation (90-130) mL/min Glucose (65-115) mg/dL Calculated Osmolal ity (285-295) mOsm/k g Calcium (8.5-10.5) mg/dL Total Bilirubin (0.15-1.2) mg/dL AST (0-40) U/L ALT (0-41) U/L Alkaline Phosphata se (40-130) IU/L Troponin T Baselin e (0-15) ng/L Troponin T 120 Min [place] 9.48 (0-15) ng/L Delta Troponin T -2.52 L (0-10) ABS# Total Protein (6.6-8.7) g/dL Albumin (3.5-5.2) g/dL Globulin (1.3-4.6) g/dL Lipase (13-60) U/L Imaging Data^: CXR: Attestation: I personally reviewed and interpreted this imaging study as follows: My impression: Negative chest x-ray for any acute findings. EKG Data^: EKG 1: Attestation: I personally reviewed and interpreted this EKG as follows: EKG interpretation date: 06/14/20 EKG interpretation time: 20:01 Interpretation: Normal sinus rhythm heart rate 64 Discharge Plan Discharge Patient Disposition: Placed in Observation Clinical Impression: Atypical chest pain, Cervical radiculopathy Coding Level of Care Code ED [employer] for [facility] Fwd Exam Comprehensive Documented by User: Carlota Arriaga MD 06/14/20 23:32 HPI - Chest Pain General: Chief Complaint: Chest Pain Stated Complaint: chest pain, face numbness Time Seen by Provider: 06/14/20 19:47 PFSH ED PFSH: Medical History Anxiety with somatic features Chronic low back pain Chronic neck pain Congestive heart failure COVID-19 Diabetes Diastolic heart failure Essential (primary) hypertension History of colon polyps History of CVA (cerebrovascular accident) 2005 --left-sided weakness History of IN (myocardial infarction) History of TIA (transient ischemic attack) Hypertriglyceridemia Hypothyroidism Internal hemorrhoids Left ventricular hypertrophy Major depressive disorder, recurrent, moderate MRSA (methicillin resistant Staphylococcus aureus) Nephrolithiasis Persistent moderate somatic symptom disorder with predominant pain Surgical History H/O esophagogastroduodenoscopy (05/10/20) H/O neck surgery x 5 ( some of those were for a postop MRSA infection ) History of colonoscopy 12/2014 --small tubular adenoma, limited diverticulosis 02/2018 --small internal hemorrhoids S/P appendectomy S/P cholecystectomy S/P hernia repair ventral with mesh x 2 Family History Mother CHF (congestive heart failure) Thyroid disease Sister Thyroid disease Father A-fib Brother Heart disease HX STENTS Other CAD (coronary artery disease) Diabetes Social History Smoking and tobacco status: current every day smoker smokeless tobacco Smokeless tobacco user: chewing tobacco Second hand smoke exposure: Yes Alcohol intake: current Alcohol intake frequency: holidays/special occasions only Alcohol type: beer Lives independently: Yes Household members: spouse Marital status: Current occupational status: disabled History of recent travel: No Current gender identity: Male Course Vital Signs: Vital signs: Vital Signs Temperature 98.4 F 06/14/20 19:35 Pulse Rate 70 06/14/20 21:44 Respiratory Rate 18 06/14/20 21:44 Blood Pressure 156/84 06/14/20 21:44 Pulse Oximetry 96 06/14/20 21:44 MDM - Chest Pain MDM Narrative: Medical decision making narrative: Took patient over from Dr. Paredes. Patient's had chest pain is initial repeat troponin normal D-dimer here are all negative. Patient was seen by the hospitalist down the ER and he has decided he will admit him for observation. Patient has been well-appearing here and has no EKG changes. Will admit at this time. Lab Data: Labs: Lab Results 06/14/20 06/14/20 06/14/20 Range/Units 20:00 20:00 20:00 WBC 10.4 H (4.0-10.0) 10^3/ uL RBC 5.14 (4.1-5.3) 10^6/u L Hgb 14.3 (11.7-16.6) g/dL Hct 44.8 (42.0-52.0) % MCV 87.2 (80-94) fL MCH 27.8 L (28.0-34.0) pg MCHC 31.9 (30.0-36.0) g/dL RDW 14.0 (12.1-15.1) % Plt Count 298 (130-400) 10^3/c mm MPV 10.9 H (7.4-10.4) fL Neut % (Auto) 69.1 % Lymph % (Auto) 19.7 % [place] % (Auto) 8.3 % Eos % (Auto) 2.2 % Baso % (Auto) 0.4 % Neut # (Auto) 7.20 (1.8-7.7) 10^3/u L Lymph # (Auto) 2.1 (0.8-4.8) 10^3/u L [place] # (Auto) 0.9 (0.2-0.9) 10^3/u L Eos # (Auto) 0.2 (0.0-0.8) 10^3/u L Baso # (Auto) 0.0 (0.0-0.1) 10^3/u L Nucleated RBC % (a uto) 0 % Nucleated RBCs # 0.0 /100WBC D-Dimer (0-0.59) ug/mIFE U Sodium 137 (136-145) mmol/L Potassium 4.1 (3.5-5.1) mmol/L Chloride 98 (98-107) mmol/L Carbon Dioxide 28 (22-29) mmol/L Anion Gap 15.1 (5-19) BUN 12 (6-20) mg/dL Creatinine 1.0 (0.7-1.2) mg/dL GFR Calculation 77.9 L (90-130) mL/min Glucose 151 H (65-115) mg/dL Calculated Osmolal ity 287 (285-295) mOsm/k g Calcium 9.5 (8.5-10.5) mg/dL Total Bilirubin 0.3 (0.15-1.2) mg/dL AST 18 (0-40) U/L ALT 22 (0-41) U/L Alkaline Phosphata se 74 (40-130) IU/L Troponin T Baselin e 12 (0-15) ng/L Troponin T 120 Min [place] (0-15) ng/L Delta Troponin T (0-10) ABS# Total Protein 6.9 (6.6-8.7) g/dL Albumin 4.4 (3.5-5.2) g/dL Globulin 2.5 (1.3-4.6) g/dL Lipase 23 (13-60) U/L 06/14/20 06/14/20 Range/Units 20:00 21:43 WBC (4.0-10.0) 10^3/ uL RBC (4.1-5.3) 10^6/u L Hgb (11.7-16.6) g/dL Hct (42.0-52.0) % MCV (80-94) fL MCH (28.0-34.0) pg MCHC (30.0-36.0) g/dL RDW (12.1-15.1) % Plt Count (130-400) 10^3/c mm MPV (7.4-10.4) fL Neut % (Auto) % Lymph % (Auto) % [place] % (Auto) % Eos % (Auto) % Baso % (Auto) % Neut # (Auto) (1.8-7.7) 10^3/u L Lymph # (Auto) (0.8-4.8) 10^3/u L [place] # (Auto) (0.2-0.9) 10^3/u L Eos # (Auto) (0.0-0.8) 10^3/u L Baso # (Auto) (0.0-0.1) 10^3/u L Nucleated RBC % (a uto) % Nucleated RBCs # /100WBC D-Dimer 0.33 (0-0.59) ug/mIFE U Sodium (136-145) mmol/L Potassium (3.5-5.1) mmol/L Chloride (98-107) mmol/L Carbon Dioxide (22-29) mmol/L Anion Gap (5-19) BUN (6-20) mg/dL Creatinine (0.7-1.2) mg/dL GFR Calculation (90-130) mL/min Glucose (65-115) mg/dL Calculated Osmolal ity (285-295) mOsm/k g Calcium (8.5-10.5) mg/dL Total Bilirubin (0.15-1.2) mg/dL AST (0-40) U/L ALT (0-41) U/L Alkaline Phosphata se (40-130) IU/L Troponin T Baselin e (0-15) ng/L Troponin T 120 Min [place] 9.48 (0-15) ng/L Delta Troponin T -2.52 L (0-10) ABS# Total Protein (6.6-8.7) g/dL Albumin (3.5-5.2) g/dL Globulin (1.3-4.6) g/dL Lipase (13-60) U/L Discharge Plan Discharge Patient Disposition: Placed in Observation Clinical Impression: Atypical chest pain, Cervical radiculopathy Coding Level of Care Code ED [facility] for [facility] Fwd Exam Comprehensive
[2020-06-14 20:07] LABS: Basophils % 0.4 %; Eosinophils # 0.2 10^3/uL (0.0-0.8); Eosinophils % 2.2 %; Hematocrit 44.8 % (42.0-52.0); Hemoglobin 14.3 g/dL (11.7-16.6); Lymphocytes # 2.1 10^3/uL (0.8-4.8); Lymphocytes % 19.7 %; Mean Corpuscular HGB Conc 31.9 g/dL (30.0-36.0); Mean Corpuscular Hemoglobin 27.8 pg (28.0-34.0); Mean Corpuscular Volume 87.2 fL (80-94); Mean Platelet Volume 10.9 fL (7.4-10.4); Monocytes # 0.9 10^3/uL (0.2-0.9); Monocytes % 8.3 %; Neutrophils % 69.1 %; Nucleated Red Blood Cells % 0 %; Platelet Count 298 10^3/cmm (130-400); Red Blood Count 5.14 10^6/uL (4.1-5.3); White Blood Count 10.4 10^3/uL (4.0-10.0)
[2020-06-14 20:28] LABS: Alanine Aminotransferase 22 U/L (0-41); Albumin Level 4.4 g/dL (3.5-5.2); Alkaline Phosphatase 74 IU/L (40-130); Anion Gap 15.1 (5-19); Aspartate Amino Transferase 18 U/L (0-40); Blood Urea Nitrogen 12 mg/dL (6-20); Calcium 9.5 mg/dL (8.5-10.5); Carbon Dioxide 28 mmol/L (22-29); Chloride 98 mmol/L (98-107); Creatinine Clr Calc Pharmacy 108.6629; Globulin 2.5 g/dL (1.3-4.6); Glomerular Filtration Rate 77.9 mL/min (90-130); Glucose 151 mg/dL (65-115); Lipase 23 U/L (13-60); Osmolality Calculated 287 mOsm/kg (285-295); Potassium 4.1 mmol/L (3.5-5.1); Sodium 137 mmol/L (136-145); Total Bilirubin 0.3 mg/dL (0.15-1.2); Total Protein 6.9 g/dL (6.6-8.7)
[2020-06-14] MEDS: aspirin 81 mg Chew Tablet 324 MG PO (20:30)
[2020-06-14 20:32] LABS: Troponin(5th) Baseline 12 ng/L (0-15)
[2020-06-14] MEDS: nitroglycerin 0.4 mg sublingual Tablet SUBLINGUAL (21:02)
--- NOTE | 2020-06-14 21:15 | ECG_ITS ---
[facility] Test Date: 2020-06-14 Pat Name: Ben Nielsen Department: Room: Gender: Male [employer]: : 1965 Requested By: Carlota Arriaga Order Number: [id number] Reading MD: BRI ART Measurements Intervals [place] Rate: P: AL: QRS: 0 QRSD: T: 0 QT: QTc: Interpretive Statements Sinus rhythm Normal axis compared to ECG 06/14/2020 20:01:49 There is no significant change Electronically Signed On 06-15-2020 20:28:16 CDT by BRI ART [email or web address]
[2020-06-14] MEDS: ondansetron 2 mg/ML SDV 2 mL 4 MG IVP (21:38)
[2020-06-14] MEDS: morphine 4 mg/mL SDV 1 mL 2 MG IVP (21:40)
[2020-06-14] MEDS: metoprolol tartrate 1 mg/1 mL SDV 5 mL 5 MG IV (21:41)
[2020-06-14 22:21] LABS: Troponin 5 2HR 9.48 ng/L (0-15)
[2020-06-14 22:22] LABS: Troponin 5 2HR Delta -2.52 ABS# (0-10)
[2020-06-14] MEDS: lidocaine 2% viscous 15 ML, aluminum-mag hydrox-simethicon 30 ML, sucralfate oral liq 1 GM PO (22:51)
[2020-06-14 23:17] LABS: D Dimer 0.33 ug/mIFEU (0-0.59)
--- NOTE | 2020-06-14 23:27 | P.HP_ITS ---
Providers/Chief Complaint Primary Care Provider: Qi Muhammad DO Chief Complaint: chest pain, face numbness History of Present Illness Ben Nielsen is a 54 year old male who has history of preserved ejection fraction, multiple neck surgeries, prior laminectomy fusion of cervical spine, presented today with chief complaint of worsening chest discomfort. Patient is stating that at baseline he feels chest discomfort 7/10 on a daily basis that he lives with which is attributing to his multiple neck surgeries. This time his symptoms were different. His symptoms started on Saturday evening after taoism when he mowed the lawn for 4 hours, his right experiencing fatigue, shortness of breath and chest discomfort, he waited until today to come to the hospital, he is describing his symptoms as someone put a 4000 pound weight on his chest, associated with dizziness, shortness of breath, radiation of pain to her jaw and left arm associated with numbness and tingling. He has not noticed any diaphoresis, nausea, vomiting excessive burping. He has not been taking opioids, he is taking gabapentin and acid suppression medication for gastritis. On 05/10 he underwent EGD which showed chronic gastritis, biopsy did not show H. pylori pathological changes no metaplasia or dysplasia, diagnosis in the ER revealed hypotension, bradycardia, unremarkable troponin EKG showing sinus rhythm, D-dimer unremarkable he received morphine after 2 doses of nitroglycerin which did not relieve his symptoms, I also gave him GI cocktail, at the time my evaluation he was complaining of chest discomfort 8/10 with dizziness and fatigue. Blood pressure was 166/90 mmHg heart rate fluctuating between 58-60 sinus bradycardia, for hypertensive urgency he received metoprolol 5 mg IV, plus aspirin loading dose and Zofran Review of Systems Const: Denies: chills Eyes: Denies: change in vision ENMT: Denies: throat pain Card: Reports: chest pain Resp: Reports: dyspnea and non-productive cough GI: Denies: abdominal pain : Denies: flank pain Musc: Reports: neck pain, extremity pain and muscle cramps Skin/Breast: Reports: lesions Neuro: Denies: headache(s) Psych: Reports: anxiety Endo: Denies: polyuria Cornelius/Lymph: Denies: easy bruising All/Imm: Denies: urticaria Medications/Allergies Home Medications Medication Instructions Recorded Confirmed Last Taken Type nitroglycerin 0.4 mg sublingual 0.4 mg SUBLINGUAL ONCE PRN tab 07/24/19 06/14/20 09/01/19 History tablet albuterol sulfate 2 inh INHALATION Q4H PRN #18 gm 09/01/19 06/14/20 09/02/19 Rx furosemide 40 mg tablet 40 mg PO BID PRN #180 tab 02/25/20 06/14/20 05/09/20 Rx losartan 50 mg tablet 50 mg PO DAILY@0700 04/07/20 06/14/20 05/10/20 07:15 History melatonin 3 mg tablet 3 mg PO BEDTIME PRN #30 tab 05/23/20 06/14/20 06/13/20 Rx quetiapine 25 mg tablet 25 mg PO DAILY PRN #30 tab 05/23/20 06/14/20 06/13/20 Rx tizanidine 4 mg tablet 4 mg PO TID PRN #90 tab 05/24/20 06/14/20 06/14/20 Rx Protonix 40 mg PO DAILY@0800 06/14/20 06/14/20 06/14/20 History Seroquel 50 mg PO BEDTIME@2100 06/14/20 06/14/20 06/13/20 History gabapentin 800 mg PO TID@08,06/14/20 06/14/20 06/14/20 History metoprolol tartrate 25 mg PO BID@0800,2100 06/14/20 06/14/20 06/14/20 History potassium chloride 20 meq PO DAILY@0800 06/14/20 06/14/20 06/14/20 History Allergies Allergy/AdvReac Type Severity Reaction Status Date / Time pregabalin [From Lyrica] Allergy Intermediate ADR-Halluci Verified 06/03/20 11:37 nating pineapple Allergy Unknown ALGY-Anaphy Verified 06/03/20 11:37 laxis PFSH Acute PFSH: Medical History Anxiety with somatic features Chronic low back pain Chronic neck pain Congestive heart failure COVID-19 Diabetes Diastolic heart failure Essential (primary) hypertension History of colon polyps History of CVA (cerebrovascular accident) 2005 --left-sided weakness History of [place] (myocardial infarction) History of TIA (transient ischemic attack) Hypertriglyceridemia Hypothyroidism Internal hemorrhoids Left ventricular hypertrophy Major depressive disorder, recurrent, moderate MRSA (methicillin resistant Staphylococcus aureus) Nephrolithiasis Persistent moderate somatic symptom disorder with predominant pain Surgical History H/O esophagogastroduodenoscopy (05/10/20) H/O neck surgery x 5 ( some of those were for a postop MRSA infection ) History of colonoscopy 12/2014 --small tubular adenoma, limited diverticulosis 02/2018 --small internal hemorrhoids S/P appendectomy S/P cholecystectomy S/P hernia repair ventral with mesh x 2 Family History Mother CHF (congestive heart failure) Thyroid disease Sister Thyroid disease Father A-fib Brother Heart disease HX STENTS Other CAD (coronary artery disease) Diabetes Social History Smoking and tobacco status: current every day smoker smokeless tobacco Smokel ess tobacco user: chewing tobacco Second hand smoke exposure: Yes Alcohol intake: current Alcohol intake frequency: holidays/special occasions only Alcohol type: beer Lives independently: Yes Household members: spouse Marital status: Current occupational status: disabled History of recent travel: No Current gender identity: Male Vitals/I&O/Wt Last Vital Signs Temp 98.4 F 06/14/20 19:35 Pulse 70 06/14/20 21:44 Resp 18 06/14/20 21:44 BP 156/84 06/14/20 21:44 Pulse Ox 96 06/14/20 21:44 Weight last 48 hrs Weight 117.934 kg Physical Exam Narrative: EXAM NARRATIVE: obese middle-age male who was laying comfortably in his bed when I entered the room he was saturating well on room air well articulate was able to mention above HPI Was complaining of chest discomfort 8/10 which is reproducible S1, S2 no murmur no signs of heart failure No acute respite distress he was saturating well on room air no audible wheezing or stridor Abdomen is soft, central obesity, distended bowel sounds present nontender No neurological deficits EOMI, PERRLA No skin changes No joint swelling Is able to abduct his arm only up to horizontal level and does endorse worsening of pain Data : 06/14/20 20:00 06/14/20 20:00 A&P Assessment and plan (1) Atypical chest pain: Status: Acute (2) Type 2 diabetes mellitus, without long-term current use of insulin: Status: Acute (3) Essential (primary) hypertension: Status: Chronic (4) Obstructive sleep apnea: Status: Acute (5) Heart failure with preserved ejection fraction: Status: Acute (6) Hypersomnia: Status: Acute (7) Sinus bradycardia: Status: Acute Additional A&P Information Atypical chest pain with sinus bradycardia Reproducible EKG unremarkable showing sinus rhythm, sinus bradycardia no QTC prolongation we will check TSH, D-dimer rule out PE Currently endorsing chest discomfort 8/10 which slightly gets worse on abduction of left arm Patient does have multiple risk factors such as age, sex, family history(his brother had triple bypass who is 3 years younger than him), active smoking Is complaining of dizziness and bradycardia is an relatively new however he received IV metoprolol in the ER which I am going to hold for now Stress test last year in March was unremarkable He follows up with Dr. Lewis, we will keep him n.p.o. and do a Lexiscan stress test and hold beta-tristen Hypertensive urgency Patient is compliant with his medications I do believe this is related to his pain Would add low-dose oxycodone for neck pain along bowel regimen Holding metoprolol will add amlodipine 10 mg daily Obstructive sleep apnea: Would use auto CPAP overnight Heart failure preserved ejection fraction no acute exacerbation Nicotine dependence: Patient does not want nicotine replacement therapy he is endorsing that he does not have any problem with nicotine addiction he sometimes smoke cigarettes with his morning coffee N.p.o. DVT prophylaxis Lovenox Full code Attestations Medical Necessity Statement*: Anticipating discharge in less than 48 hours will need Lexiscan stress test rule out coronary etiology for worsening chest discomfort Time Spent in Patient Care: (>than 50% of time spent in counselling and/or direct pt care on unit) . 40mins Coding Level of Care Code Acute Superintendent Meter Tests for Chg Fwd Diagnoses Atypical chest pain R07.89 Type 2 diabetes mellitus, without long-term current use of insulin E11.9 Essential (primary) hypertension I10 Obstructive sleep apnea G47.33 Heart failure with preserved ejection fraction I50.30 Hypersomnia G47.10 Sinus bradycardia R00.1
[2020-06-15] VITALS (15 sets, daily range): BP systolic 132–160; BP diastolic 77–95; PULSE 55–76; RESP 16–22; TEMP 36.4–36.8; O2SAT 95–98
--- NOTE | 2020-06-15 00:44 | NMCV_ITS ---
NM souleymane perf SPECT r/s* [id number] Ben Nielsen Age: 54 Gender: M : 1965 Exam Date: 06/15/2020 07:11 Ordering Phys: Farhat Dennis MD Technologist: LEXIE Tripathi Exam Location: [facility] Indications: CHEST PAIN, FACE NUMBNESS STRESS TEST Please see separate stress test report in [facility] for full findings IMAGE PROTOCOL Rest/Stress 1 Lexiscan Day Radiopharmaceutical Dose (mCi) Administration Site Administered by Rest: Tc-99m 11.0 IV LEXIE Humphrey Sestamibi Stress:Tc-99m 33.0 IV LEXIE Humphrey Sestamibi Rest: 15-Jun-2020 60 Discovery 630 Stress: 15-Jun-2020 30 Discovery 630 0.4mg Lexiscan. Supine position only as patient was unable to lay prone. SPECT RESULTS Technical Quality: Excellent Raw Data Analysis: Normal Image Corrections: No attenuation or motion correction applied Summed Stress Score: 1 Summed Rest Score: 0 Summed Difference Score: 1 PERFUSION FINDINGS A small area of decreased tracer uptake was noted in the apical inferior region with some reversibility. Small area of slightly decreased tracer uptake was noted in the mid and apical anterior wall region, with no significant reversibility. FUNCTIONAL RESULTS (calculated via Gated SPECT) Stress Image LV EF (%): 60 Stress EDV (mL):141 TID: 0.97 Stress ESV (mL):56 FUNCTIONAL FINDINGS: Segmental wall motion analysis revealing no gross wall motion normalities. IMPRESSIONS 1. Myocardial perfusion may revealing a small area of reversible defect in the apical inferior wall region, suggestive of ischemia in the distribution of the right coronary artery. 2. Normal LV ejection fraction of 60%. 3. LV wall motion analysis revealing no gross wall motion normalities. 4. Normal LV volume. No similar previous studies are available for comparison Dr Tony Reyes MD [facility] (Electronically Signed) Final Date: 15 June 2020 18:25 S
--- NOTE | 2020-06-15 00:44 | ECG_ITS ---
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 Interpretive Statements NAME OF STUDY: LEXISCAN SESTAMIBI STRESS TEST INDICATION: Chest Pain, PROCEDURE: At the baseline, the EKG revealed sinus bradycardia with a poor R wave progression.. The baseline blood pressure was 146/86 mm Hg with a heart rate of 51 beats/min. Lexiscan was infused over a period of 20 seconds. A total of 0.4 milligrams of Lexiscan was infused. The stress phase was continued for a total of 5 minutes. Heart rate at the end of the stress phase was 69 with a blood pressure 151/86. The EKG at the peak infusion revealed no significant changes. Sestamibi was injected 20 seconds after the Lexiscan infusion. Blood pressure at the end of the recovery phase was 160/81 with a heart rate of 76 per minute. CONCLUSION: 1. No significant EKG changes with the LexiScan infusion 2. No LexiScan induced chest pain or cardiac arrhythmia 3. Normal blood pressure and heart rate response 4. Sestamibi/sestamibi perfusion scan pending; see separate report. Electronically Signed On 06-16-2020 9:05:55 CDT by Tony Reyes M.D. [id number]
[2020-06-15 01:53] LABS: Thyroid Stimulating Hormone 13.71 uIU/mL (0.27-4.20)
[2020-06-15] MEDS: quetiapine 25 mg Tablet 50 MG PO ×2 (02:34→20:38)
[2020-06-15] MEDS: losartan 50 mg Tablet PO (06:20)
--- NOTE | 2020-06-15 06:37 | PC.NURSE ---
Pain: Pt c/o pain this evening when he arrived from ER and again this am when he awoke. This nurse offered the PO pain medication ordered and the pt declined.
[2020-06-15 06:39] LABS: Glucose Point of Care 130 mg/dL (70-110)
[2020-06-15] MEDS: regadenoson 0.4 Mg/5 ml Syringe IVP (08:04)
[2020-06-15] MEDS: gabapentin 400 mg Capsule 800 MG PO ×3 (10:18→20:38)
[2020-06-15] MEDS: sennosides-docusate Tablet 1 TAB PO (10:18)
[2020-06-15] MEDS: amlodipine 10 mg Tablet PO (10:19)
[2020-06-15] MEDS: pantoprazole DR 40 mg Tablet PO (10:19)
[2020-06-15 10:32] LABS: Glucose Point of Care 143 mg/dL (70-110)
--- NOTE | 2020-06-15 10:38 | PC.CHAP ---
Pastoral Care Encounter/Spiritual Assessment Type of Contact [] Declined income tax analyst visit [] Patient/Family/Request visit [] Outpatient visit [] Follow-up visit [] Physician referral [] Code/Alert [x] Routine visit [] Staff referral [] Actively dying [] Patient sleeping [] Family support [] [] Out of room [] Palliative care [] [] Receiving care in room [] Pre-surgical visit [] Trauma [] Long length of stay [] ICU visit [] Other: Relational/Emotional Strength [x] Patient feels connected with others/family/visitors/staff [] Distress [] Loneliness/isolation [] Abandonment Spirituality of Patient [x] Person of Janna []x Attends Caodaism of their Janna [x] Believes in Prayer [x] Reads Bible or Pentecostalism materials [] There are Spiritual issues to be addressed Retail Selling Specialist Interventions [x] Prayer [x] Active listening [x] Non-anxious presence [x] Spiritual/emotional support [] Crisis/trauma care [] Spiritual counseling [] Bereavement support [] Provided bereavement packet [] Provided Bible/devotional materials [] Provided toy/stuffed animal, coloring book to patient or family member [] Provided Communion [] Anointing/[place] [] Salvation [] Completed spiritual assessment [] Other: Impact on Illness or Injury [] Angry [] Fearful [] Anxious [] Often cries [] Exhaustion [] Unable to work [] Unable to attend yazdanism [] Unable to walk/stand [] Unable to read [] Unable to drive [] Unable to eat/drink [] Unable to sleep [] Unable to be with family [] Patient intubated [] Other: Summary Time spent with patient 15 min
[2020-06-15 11:08] LABS: T3 Free 3.2 PG/ML (2.0-4.4)
--- NOTE | 2020-06-15 16:15 | P.PN_ITS ---
Subjective Subjective: Interval history: Patient underwent stress test earlier today, results of this is currently awaited. Patient reports that the chest pressure is resolved, however he still experiencing numbness of the left side of his face shoulder and left side of his rib cage Medications: Reviewed: Yes Vitals/I&O/Wt Last Vital Signs Temp 97.5 F L 06/15/20 15:34 Pulse 59 L 06/15/20 15:34 Resp 18 06/15/20 15:34 BP 144/84 06/15/20 15:34 Pulse Ox 95 06/15/20 15:34 06/15/20 06/15/20 06/15/20 06:59 14:59 22:59 Intake Total 500 / 500 Output Total 350 / 350 225 / 225 Balance -350 / -350 275 / 275 Weight last 48 hrs Weight 117.934 kg Physical Exam Narrative: EXAM NARRATIVE: GEN: Awake, alert and oriented, no acute distress CVS: S1S2 N RS: CTA B/L Abd: Soft, nt/nd , bs+ 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 Data : 06/14/20 20:00 06/14/20 20:00 A&P Assessment and plan (1) Atypical chest pain: Status: Acute (2) Type 2 diabetes mellitus, without long-term current use of insulin: Status: Acute (3) Essential (primary) hypertension: Status: Chronic (4) Obstructive sleep apnea: Status: Acute (5) Heart failure with preserved ejection fraction: Status: Acute (6) Hypersomnia: Status: Acute (7) Sinus bradycardia: Status: Acute Additional A&P Information Atypical chest pain with sinus bradycardia EKG unremarkable showing sinus rhythm, sinus bradycardia no QTC prolongation TSH elevated, check ft3 and ft4 D-dimer negative Patient does have multiple risk factors such as age, sex, family history(his brother had triple bypass who is 3 years younger than him), active smoking pending stress test results perfromed earlier today Hypertensive urgency now resolved Obstructive sleep apnea: Would use auto CPAP overnight Heart failure preserved ejection fraction no acute exacerbation Nicotine dependence: Patient does not want nicotine replacement therapy he is endorsing that he does not have any problem with nicotine addiction he sometimes smoke cigarettes with his morning coffee cardiac diet DVT prophylaxis Lovenox Full code Attestations Medical Necessity Statement*: awaiting stress test results Coding Level of Care Code Acute Store Keeper for Chg Fwd Diagnoses Atypical chest pain R07.89 Type 2 diabetes mellitus, without long-term current use of insulin E11.9 Essential (primary) hypertension I10 Obstructive sleep apnea G47.33 Heart failure with preserved ejection fraction I50.30 Hypersomnia G47.10 Sinus bradycardia R00.1
[2020-06-15 16:21] LABS: Glucose Point of Care 117 mg/dL (70-110)
[2020-06-15 20:50] LABS: Glucose Point of Care 144 mg/dL (70-110)
[2020-06-16] VITALS (12 sets, daily range): BP systolic 112–151; BP diastolic 61–88; PULSE 60–87; RESP 16–18; TEMP 36.4–37.1; O2SAT 93–99
--- NOTE | 2020-06-16 00:04 | PC.NURSE ---
Patient refused insulin. Patient said he doesn't take insulin at home.
--- NOTE | 2020-06-16 00:12 | PC.NURSE ---
Patient c/o of pain. This nurse told patient he had p.o pain medication but refused it. Patient said it tears his stomach up and wants morphine.
[2020-06-16] MEDS: oxyCODONE 5 mg IR Tab/Cap 10 MG PO (04:37)
[2020-06-16] MEDS: losartan 50 mg Tablet PO (06:29)
[2020-06-16 06:36] LABS: Glucose Point of Care 142 mg/dL (70-110)
[2020-06-16] MEDS: pantoprazole DR 40 mg Tablet PO (08:23)
[2020-06-16] MEDS: amlodipine 10 mg Tablet PO (08:23)
[2020-06-16] MEDS: tizanidine 4 mg Tablet PO (08:23)
[2020-06-16] MEDS: gabapentin 400 mg Capsule 800 MG PO ×2 (08:23→11:57)
[2020-06-16 10:42] LABS: Glucose Point of Care 190 mg/dL (70-110)
--- NOTE | 2020-06-16 11:03 | PC.CHAP ---
Pastoral Care Encounter/Spiritual Assessment Type of Contact [] Declined rn l and d visit [] Patient/Family/Request visit [] Outpatient visit [] Follow-up visit [] Physician referral [] Code/Alert [x] Routine visit [] Staff referral [] Actively dying [] Patient sleeping [] Family support [] [] Out of room [] Palliative care [] [x] Receiving care in room [] Pre-surgical visit [] Trauma [] Long length of stay [] ICU visit [] Other: Relational/Emotional Strength [] Patient feels connected with others/family/visitors/staff [x] Distress [] Loneliness/isolation [] Abandonment Spirituality of Patient [x] Person of Janna [] Attends Advent of their Janna [x] Believes in Prayer [] Reads Bible or Shinto materials [] There are Spiritual issues to be addressed Training Intern Interventions [x] Prayer [x] Active listening [x] Non-anxious presence [x] Spiritual/emotional support [] Crisis/trauma care [x] Spiritual counseling [] Bereavement support [] Provided bereavement packet [] Provided Bible/devotional materials [] Provided toy/stuffed animal, coloring book to patient or family member [] Provided Communion [] Anointing/[place] [] Salvation [x] Completed spiritual assessment [] Other: Impact on Illness or Injury [x] Angry [] Fearful [] Anxious [] Often cries [] Exhaustion [] Unable to work [] Unable to attend baptist [] Unable to walk/stand [] Unable to read [] Unable to drive [] Unable to eat/drink [] Unable to sleep [] Unable to be with family [] Patient intubated [] Other: Summary up set because he doesn't know what is wrong, his vituals are good, has postive attitude, wants to go home? Time spent with patient 10 mins
[2020-06-16] MEDS: aspirin 81 mg EC Tablet PO (11:57)
[2020-06-16] MEDS: morphine 4 mg/mL SDV 1 mL 2 MG IVP (12:00)
--- NOTE | 2020-06-16 14:34 | PM.PN ---
Subjective Subjective: Interval history: Patient stress test from yesterday returned with small area of reversible defect in the apical inferior wall suggestive of ischemia in the distribution of the right coronary artery. Normal LVEF of 60%. No gross wall motion abnormalities. Patient continues to complain of numbness of the left side of the body, also pain over the same area rated 9 out of 10 Medications: Reviewed: Yes Vitals/I&O/Wt Last Vital Signs Temp 97.9 F 06/16/20 10:56 Pulse 74 06/16/20 10:56 Resp 17 06/16/20 10:56 BP 132/77 06/16/20 10:56 Pulse Ox 93 06/16/20 10:56 06/15/20 06/16/20 06/16/20 22:59 06:59 14:59 Intake Total 360 / 860 360 / 360 Output Total 300 / 525 600 / 1125 Balance 60 / 335 -600 / -265 360 / 360 Weight last 48 hrs Weight 117.934 kg Physical Exam Narrative: EXAM NARRATIVE: GEN: Awake, alert and oriented, no acute distress CVS: S1S2 N RS: CTA B/L Abd: Soft, nt/nd , bs+ 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 neuro 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 Data : 06/14/20 20:00 06/14/20 20:00 A&P Assessment and plan (1) Atypical chest pain: Status: Acute (2) Type 2 diabetes mellitus, without long-term current use of insulin: Status: Acute (3) Essential (primary) hypertension: Status: Chronic (4) Obstructive sleep apnea: Status: Acute (5) Heart failure with preserved ejection fraction: Status: Acute (6) Hypersomnia: Status: Acute (7) Sinus bradycardia: Status: Acute (8) Abnormal stress test: Status: Acute Additional A&P Information Atypical chest pain EKG unremarkable showing sinus rhythm, sinus bradycardia no QTC prolongation D-dimer negative Patient does have multiple risk factors such as age, sex, family history(his brother had triple bypass who is 3 years younger than him), active smoking Abnormal stress test as noted above, cardiology consult Start aspirin 81 mg p.o. daily, continue losartan Hypertensive urgency now resolved, continue amlodipine 10 mg p.o. daily Obstructive sleep apnea Chronic pain, multiple cervical spine surgeries in the past currently on pain management with morphine and hydrocodone Heart failure preserved ejection fraction no acute exacerbation, currently euvolemic N.p.o. 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
[2020-06-16 16:31] LABS: Glucose Point of Care 108 mg/dL (70-110)
[2020-06-16 20:53] LABS: Glucose Point of Care 211 mg/dL (70-110)
--- NOTE | 2020-06-16 20:56 | P.CONIM_ITS ---
Providers/Reason For Consult Consulting Physican/Specialty*: Cardiology Reason for Consult*: Dizziness, chest pain, shortness of breath Requesting Physcian: Dr. Garcia Attending Physician: Latasha Garcia MD Primary Care Provider: Qi Muhammad DO History of Present Illness History of Present Illness Ben Nielsen is a 54 year old male who is known to me through my clinic was admitted in the hospital with symptoms of dizziness worsening of shortness of breath chest wall pain at different spots and numbness of the left arm. Recently patient brother has been diagnosed with multivessel coronary artery disease and underwent CABG according to the patient it has also alerted him to his symptoms. Patient is well-known to me through my clinic when in 2016 he underwent coronary angiogram for recurrent neck pain chest pain prompted multiple tests. Coronary angiogram did not show any significant coronary artery disease. He was noted to have diastolic dysfunction for which his medicine were optimized. He underwent multiple neck surgeries for radiculopathy. He denies exertional component to the chest pain. He refers it to more of a numbness. He tells me that he feels tenderness in the chest. He was ruled out for acute coronary syndrome. Nuclear stress test showed very small area of infroapical reversibility which could be artifact. I have detailed discussion with the patient regarding his symptoms. It appeared to me it stems from anxiety and noncardiac origin most likely due to cervical radiculopathy and arthritis. In the emergency room nitroglycerin was tried but did not relieve the chest pain. Review of Systems General: Reports: 10 or more systems reviewed and unremarkable except in HPI a nd below Const: Denies: fever(s), chills, body aches or fatigue Eyes: Denies: change in vision or blurry vision ENMT: Denies: throat pain, hoarseness or mouth pain Card: Reports: chest pain; Denies: palpitations, irregular heart rhythm, edema, swelling of feet/ankles or lightheadedness Resp: Reports: dyspnea and non-productive cough; Denies: productive cough, wheezing or pain on inspiration GI: Denies: abdominal pain, nausea or vomiting : Denies: flank pain, dysuria, urinary frequency, urinary urgency or urinary hesitancy Musc: Reports: neck pain, extremity pain and muscle cramps; Denies: back pain, extremity swelling, joint pain, joint swelling, joint redness, joint warmth or limited range of motion Skin/Breast: Reports: lesions; Denies: rash, pruritus, erythema or skin tenderness Neuro: Denies: headache(s), numbness in extremities or weakness in extremities Psych: Reports: anxiety; Denies: depression Endo: Denies: polyuria Cornelius/Lymph: Denies: easy bruising All/Imm: Denies: urticaria or acute wheezing Meds/Allergies Home Medications and Allergies Home Medications Medication Instructions Recorded Confirmed Last Taken Type nitroglycerin 0.4 mg sublingual 0.4 mg SUBLINGUAL ONCE PRN tab 07/24/19 06/14/20 09/01/19 History tablet albuterol sulfate 2 inh INHALATION Q4H PRN #18 gm 09/01/19 06/14/20 09/02/19 Rx furosemide 40 mg tablet 40 mg PO BID PRN #180 tab 02/25/20 06/14/20 05/09/20 Rx losartan 50 mg tablet 50 mg PO DAILY@69904/07/20 06/14/20 05/10/20 07:15 History melatonin 3 mg tablet 3 mg PO BEDTIME PRN #30 tab 05/23/20 06/14/20 06/13/20 Rx quetiapine 25 mg tablet 25 mg PO DAILY PRN #30 tab 05/23/20 06/14/20 06/13/20 Rx tizanidine 4 mg tablet 4 mg PO TID PRN #90 tab 05/24/20 06/14/20 06/14/20 Rx Protonix 40 mg PO DAILY@79906/14/20 06/14/20 06/14/20 History Seroquel 50 mg PO BEDTIME@209906/14/20 06/14/20 06/13/20 History gabapentin 800 mg PO TID@06/14/20 06/14/20 06/14/20 History metoprolol tartrate 25 mg PO BID@799,209906/14/20 06/14/20 06/14/20 History potassium chloride 20 meq PO DAILY@0800 06/14/20 06/14/20 06/14/20 History aspirin [Aspirin Low Dose] 81 mg PO DAILY 30 Days #30 tab 06/16/20 Unknown Rx atorvastatin 20 mg PO DAILY 30 Days #30 tab 06/16/20 Unknown Rx Allergies Allergy/AdvReac Type Severity Reaction Status Date / Time pregabalin [From Lyrica] Allergy Intermediate ADR-Halluci Verified 06/03/20 11:37 nating pineapple Allergy Unknown ALGY-Anaphy Verified 06/03/20 11:37 laxis Current Medications Current Medications Generic Name Dose Route Start Last Admin Trade Name Freq PRN Reason Stop Dose Admin Amlodipine Besylate 10 mg 06/15/20 09:00 06/16/20 08:23 Amlodipine 10 Mg Tablet PO 10 mg DAILY ABBIE Administration Aspirin 81 mg 06/16/20 10:10 06/16/20 11:57 Aspirin 81 Mg Ec Tablet PO 81 mg DAILY ABBIE Administration Gabapentin 800 mg 06/15/20 08:00 06/16/20 11:57 Gabapentin 400 Mg Capsule PO 800 mg TID@ ABBIE Administration Insulin Aspart 0 unit 06/15/20 08:00 06/16/20 16:38 Insulin Aspart 100 Unit/1 Ml SUBCUT Not Given WM&BEDTIME [facility] Protocol Losartan Potassium 50 mg 06/15/20 07:00 06/16/20 06:29 Losartan 50 Mg Tablet PO 50 mg DAILY@0700 ABBIE Administration Morphine Sulfate 2 mg 06/16/20 11:32 06/16/20 12:00 Morphine 4 Mg/Ml Sdv 1 Ml IVP 2 mg Q4H PRN Administration SEVERE PAIN Nitroglycerin 0.4 mg 06/14/20 20:33 06/14/20 21:02 Nitroglycerin 0.4 Mg Sublingual Tablet SUBLINGUAL 0.4 mg Q5M PRN Administration CHEST PAIN Pantoprazole Sodium 40 mg 06/15/20 08:00 06/16/20 08:[address] 40 Mg Tablet PO 40 mg DAILY@0800 ABBIE Administration Quetiapine Fumarate 50 mg 06/15/20 21:00 06/15/20 20:38 Quetiapine 25 Mg Tablet PO 50 mg BEDTIME@2100 [facility] Administration Senna/Docusate Sodium 1 tab 06/15/20 09:00 06/16/20 08:21 Sennosides-Docusate Tablet PO Not Given DAILY ABBIE Tizanidine HCl 4 mg 06/16/20 08:03 06/16/20 08:23 Tizanidine 4 Mg Tablet PO 4 mg TID PRN Administration SPASMS PFSH Acute PFSH: Medical History Anxiety with somatic features Chronic low back pain Chronic neck pain Congestive heart failure COVID-19 Diabetes Diastolic heart failure Essential (primary) hypertension History of colon polyps History of CVA (cerebrovascular accident) 2005 --left-sided weakness History of WA (myocardial infarction) History of TIA (transient ischemic attack) Hypertriglyceridemia Hypothyroidism Internal hemorrhoids Left ventricular hypertrophy Major depressive disorder, recurrent, moderate MRSA (methicillin resistant Staphylococcus aureus) Nephrolithiasis Persistent moderate somatic symptom disorder with predominant pain Surgical History H/O esophagogastroduodenoscopy (05/10/20) H/O neck surgery x 5 ( some of those were for a postop MRSA infection ) History of colonoscopy 12/2014 --small tubular adenoma, limited diverticulosis 02/2018 --small internal hemorrhoids S/P appendectomy S/P cholecystectomy S/P hernia repair ventral with mesh x 2 Family History Mother CHF (congestive heart failure) Thyroid disease Sister Thyroid disease Father A-fib Brother Heart disease HX STENTS Other CAD (coronary artery disease) Diabetes Social History Smoking and tobacco status: current every day smoker smokeless tobacco Smokeless tobacco user: chewing tobacco Second hand smoke exposure: Yes Alcohol intake: current Alcohol intake frequency: holidays/special occasions only Alcohol type: beer Lives independently: Yes Household members: spouse Marital status: Current occupational status: disabled History of recent travel: No Current gender identity: Male Dietary Habits: Current diet type/program: regular Caffeine: Yes Caffeine intake frequency: carbonated beverages and coffee Vitals/I&O/Wt Last Vital Signs Temp 98.8 F 06/16/20 20:22 Pulse 84 06/16/20 20:22 Resp 18 06/16/20 20:22 BP 136/83 06/16/20 20:22 Pulse Ox 98 06/16/20 20:22 06/16/20 06/16/20 06/16/20 06:59 14:59 22:59 Intake Total 360 / 360 480 / 840 Output Total 600 / 1125 350 / 350 Balance -600 / -265 360 / 360 130 / 490 Physical Exam Narrative: EXAM NARRATIVE: GENERAL: Patient is alert, awake and oriented x3. Stiff neck due to radiculopathy, nontender points on the chest, movement reproduces the chest pain NECK: No jugular vein distension. HEENT: No cyanosis. No icterus. No pallor. HEART: Regular S1 and S2. No murmur, rub or gallop. LUNGS: Clear to auscultate bilaterally. ABDOMEN: Soft, nontender and nondistended. Positive bowel sounds. No guarding, rebound or tenderness. CENTRAL NERVOUS SYSTEM: Grossly nonfocal. EXTREMITIES: Lower extremities without edema bilaterally. A&P Assessment and plan (1) Atypical chest pain: Patient chest pain is noncardiac and most likely due to radiculopathy/arthritis. Stress test is essentially negative with possible artifact in a very small area may not need to be explored further at this point with angiogram. I have detailed discussion with the patient and he agrees to it. We will add isosorbide mononitrate for possible coronary spasm or to reduce left and the current diastolic pressure. Patient has been advised to call us back if we notice increasing frequency and duration of the chest pain. We will also follow-up patient in our clinic in 7 days. Status: Acute (2) Sinus bradycardia: Advised to wear sleep apnea as patient heart rate drops into the 40s while sleeping most of the time at rest and while awake heart rate remained stable within 60s. Status: Acute (3) Cervical post-laminectomy syndrome: Advised to follow-up with neurologist Status: Acute (4) Heart failure with preserved ejection fraction: Well compensated. Continue current regimen Status: Acute Consult Attestations Medical Necessity Statement: From a cardiovascular perspective patient can be discharged home Coding Level of Care Code New Pt Acute Mixed [employer] for g Fwd Patient Type New History Detailed Exam Detailed Medical Decision Making Moderate Complexity Diagnoses Atypical chest pain R07.89 Sinus bradycardia R00.1 Cervical post-laminectomy syndrome M96.1 Heart failure with preserved ejection fraction I50.30
--- NOTE | 2020-06-16 21:44 | PC.NURSE ---
Discharge Patient discharged at this time. IV line removed, telemetry removed. Patient given discharge instructions and paperwork prior, prescriptions sent to pharmacy. Patient verbalizes understanding. Patient taken via wheelchair by this nurse to personal vehicle with patient driving. Patient gathered and took all personal belongings with him including discharge paperwork.
--- NOTE | 2020-06-17 17:37 | PC.RESP ---
Smoking Cessation and Pulmonary Rehab information sent to patient.
== END 2020-06-16 21:48 | disposition home or self-care (01) | DRG 74 ==
LOC: ER 23:31 → MEDSURG 06-15 09:39
PROVIDERS: Emergency Medicine; Admitting Provider Internal Medicine; Emergency Provider Emergency Medicine; PCP Family Medicine; Visit Provider Student in an Organized Health Care Education/Training Program
DX: M54.12 Radiculopathy, cervical region (principal); I50.32 Chronic diastolic (congestive) heart failure; I69.954 Hemiplegia and hemiparesis following unspecified cerebrovascular disease affecting left non-dominant side; F33.9 Major depressive disorder, recurrent, unspecified; I95.9 Hypotension, unspecified; Z98.1 Arthrodesis status; K29.50 Unspecified chronic gastritis without bleeding; F41.9 Anxiety disorder, unspecified; G89.29 Other chronic pain; M54.5 Low back pain; I11.0 Hypertensive heart disease with heart failure; Z86.16 Personal history of COVID-19; E11.9 Type 2 diabetes mellitus without complications; Z86.010 Personal history of colon polyps; I25.2 Old myocardial infarction; E78.1 Pure hyperglyceridemia; E03.9 Hypothyroidism, unspecified; K64.8 Other hemorrhoids; Z86.14 Personal history of Methicillin resistant Staphylococcus aureus infection; Z87.442 Personal history of urinary calculi; F17.220 Nicotine dependence, chewing tobacco, uncomplicated; Z82.49 Family history of ischemic heart disease and other diseases of the circulatory system; I16.0 Hypertensive urgency; R00.1 Bradycardia, unspecified; G47.10 Hypersomnia, unspecified; G47.33 Obstructive sleep apnea (adult) (pediatric)
CPT/HCPCS: 36415; 36416; 71045; 78452; 80053; 82962; 83690; 84439; 84443; 84481; 84484; 85025; 85378; 93005; 93017; 94664; 96374; 96375; 99285; A9500; G0378; J2270; J2405; J2785; J3490

== ENCOUNTER → 2020-08-01 14:30 | Outpatient (BNVA) | payer MEDICARE, SELFPAY | PROVIDERS: PCP Family Medicine; Visit Provider Nurse Practitioner Psychiatric/Mental Health | DX: F33.1 Major depressive disorder, recurrent, moderate (principal); F41.8 Other specified anxiety disorders; F45.1 Undifferentiated somatoform disorder | CPT/HCPCS: 99214 ==

== ENCOUNTER 2020-08-10 20:00 | Outpatient (CLI) | payer MEDICARE, SELFPAY | END 2020-08-10 20:01 | disposition home or self-care (01) | LOC: SLEEP 08-11 08:34 | PROVIDERS: PCP Family Medicine; Visit Provider Internal Medicine Cardiovascular Disease | DX: G47.33 Obstructive sleep apnea (adult) (pediatric) (principal) | CPT/HCPCS: 95811 ==

== ENCOUNTER → 2020-08-23 12:34 | Outpatient (BNVA) | payer MEDICARE, SELFPAY | PROVIDERS: PCP Family Medicine; Visit Provider Anesthesiology Pain Medicine | DX: G89.29 Other chronic pain (principal); M47.22 Other spondylosis with radiculopathy, cervical region; M54.9 Dorsalgia, unspecified; M96.1 Postlaminectomy syndrome, not elsewhere classified; F17.220 Nicotine dependence, chewing tobacco, uncomplicated; Z79.899 Other long term (current) drug therapy | CPT/HCPCS: 99214 ==

== ENCOUNTER → 2020-09-05 13:30 | Outpatient (BNVA) | payer MEDICARE, SELFPAY | PROVIDERS: PCP Family Medicine; Visit Provider Anesthesiology Pain Medicine | DX: Z01.812 Encounter for preprocedural laboratory examination (principal); E11.9 Type 2 diabetes mellitus without complications; G89.29 Other chronic pain; M54.16 Radiculopathy, lumbar region; F17.220 Nicotine dependence, chewing tobacco, uncomplicated | CPT/HCPCS: 64483; 64484; J1100; J3490 ==

== ENCOUNTER → 2020-09-16 07:38 | Outpatient (BNVA) | payer MEDICARE, SELFPAY | PROVIDERS: PCP Family Medicine; Visit Provider Nurse Practitioner Psychiatric/Mental Health | DX: F33.1 Major depressive disorder, recurrent, moderate (principal); F41.8 Other specified anxiety disorders; F45.1 Undifferentiated somatoform disorder | CPT/HCPCS: 99214 ==

== ENCOUNTER → 2020-09-19 08:55 | Outpatient (BNVA) | payer MEDICARE, SELFPAY | PROVIDERS: PCP Family Medicine; Visit Provider Anesthesiology Pain Medicine | DX: G89.29 Other chronic pain (principal); M47.22 Other spondylosis with radiculopathy, cervical region; M96.1 Postlaminectomy syndrome, not elsewhere classified; Z79.899 Other long term (current) drug therapy; Z87.891 Personal history of nicotine dependence | CPT/HCPCS: 99214 ==

== ENCOUNTER → 2020-10-24 12:37 | Outpatient (BNVA) | payer MEDICARE, MEDICAID, SELFPAY | PROVIDERS: PCP Family Medicine; Visit Provider Anesthesiology Pain Medicine | DX: G89.29 Other chronic pain (principal); M54.16 Radiculopathy, lumbar region; E11.9 Type 2 diabetes mellitus without complications; Z87.891 Personal history of nicotine dependence | CPT/HCPCS: 62323; J1040; J3490 ==

== ENCOUNTER → 2020-10-28 07:51 | Outpatient (BNVA) | payer MEDICARE, MEDICAID, SELFPAY | PROVIDERS: PCP Family Medicine; Visit Provider Nurse Practitioner Psychiatric/Mental Health | DX: F33.1 Major depressive disorder, recurrent, moderate (principal); F41.8 Other specified anxiety disorders; F45.1 Undifferentiated somatoform disorder | CPT/HCPCS: 99214 ==

== ENCOUNTER → 2020-11-07 09:29 | Outpatient (BNVA) | payer MEDICARE, MEDICAID, SELFPAY | PROVIDERS: PCP Family Medicine; Visit Provider Anesthesiology Pain Medicine | DX: G89.29 Other chronic pain (principal); M25.551 Pain in right hip; M47.22 Other spondylosis with radiculopathy, cervical region; M54.5 Low back pain; M96.1 Postlaminectomy syndrome, not elsewhere classified; Z79.899 Other long term (current) drug therapy | CPT/HCPCS: 99214 ==

== ENCOUNTER → 2020-11-15 09:47 | Outpatient (BNVA) | payer MEDICARE, MEDICAID, SELFPAY | PROVIDERS: PCP Family Medicine; Visit Provider Family Medicine Adult Medicine | DX: J02.9 Acute pharyngitis, unspecified (principal) | CPT/HCPCS: 87880 ==

== ENCOUNTER → 2020-11-29 13:47 | Outpatient (BNVA) | payer MEDICARE, MEDICAID, SELFPAY | PROVIDERS: PCP Family Medicine; Visit Provider Family Medicine | DX: K92.1 Melena (principal); E11.9 Type 2 diabetes mellitus without complications; E03.9 Hypothyroidism, unspecified; G47.33 Obstructive sleep apnea (adult) (pediatric); K29.70 Gastritis, unspecified, without bleeding | CPT/HCPCS: 80053; 80061; 83036; 83721; 84439; 84443; 85025; G0328 ==

== ENCOUNTER → 2020-12-15 10:20 | Outpatient (BNVA) | payer MEDICARE, MEDICAID, SELFPAY | PROVIDERS: PCP Family Medicine; Visit Provider Anesthesiology Pain Medicine | DX: G89.29 Other chronic pain (principal); M54.50 Low back pain, unspecified; M96.1 Postlaminectomy syndrome, not elsewhere classified; M47.22 Other spondylosis with radiculopathy, cervical region; M25.551 Pain in right hip; F33.1 Major depressive disorder, recurrent, moderate; F41.8 Other specified anxiety disorders; Z87.891 Personal history of nicotine dependence; Z79.891 Long term (current) use of opiate analgesic | CPT/HCPCS: 99214 ==

== ENCOUNTER → 2020-12-22 08:37 | Outpatient (BNVA) | payer MEDICARE, MEDICAID, SELFPAY | PROVIDERS: PCP Family Medicine; Visit Provider Nurse Practitioner Psychiatric/Mental Health | DX: F33.1 Major depressive disorder, recurrent, moderate (principal); F41.8 Other specified anxiety disorders; F45.1 Undifferentiated somatoform disorder | CPT/HCPCS: 99214 ==

== ENCOUNTER → 2021-01-16 08:52 | Outpatient (BNVA) | payer MEDICARE, MEDICAID, SELFPAY | PROVIDERS: PCP Family Medicine; Visit Provider Family Medicine | DX: E03.9 Hypothyroidism, unspecified (principal) | CPT/HCPCS: 84443 ==

== ENCOUNTER → 2021-01-24 14:22 | Outpatient (BNVA) | payer MEDICARE, MEDICAID, SELFPAY | PROVIDERS: PCP Family Medicine; Visit Provider Family Medicine | DX: E11.9 Type 2 diabetes mellitus without complications (principal) | CPT/HCPCS: 80053 ==

== ENCOUNTER → 2021-01-25 09:41 | Outpatient (BNVA) | payer MEDICARE, MEDICAID, SELFPAY | PROVIDERS: PCP Family Medicine; Visit Provider Nurse Practitioner Psychiatric/Mental Health | DX: F33.1 Major depressive disorder, recurrent, moderate (principal); F41.8 Other specified anxiety disorders; F45.1 Undifferentiated somatoform disorder | CPT/HCPCS: 99214 ==

== ENCOUNTER → 2021-02-06 10:03 | Outpatient (BNVA) | payer MEDICARE, MEDICAID, SELFPAY | PROVIDERS: PCP Family Medicine; Visit Provider Anesthesiology Pain Medicine | DX: G89.29 Other chronic pain (principal); M54.16 Radiculopathy, lumbar region; M96.1 Postlaminectomy syndrome, not elsewhere classified; M54.12 Radiculopathy, cervical region; Z79.891 Long term (current) use of opiate analgesic | CPT/HCPCS: 99214 ==

== ENCOUNTER 2021-02-08 18:22 | Emergency (ER) | payer MEDICARE, MEDICAID, SELFPAY ==
--- NOTE | 2021-02-08 18:27 | W.ED.AMS ---
Documented by User: Sunil Lerma MD 02/13/21 21:20 HPI - Altered Mental Status General: Chief Complaint: Neuro Symptoms/Deficit Stated Complaint: CONFUSION/WEAKNESS Time Seen by Provider: 02/08/21 18:26 History of Present Illness: HPI narrative: Mr. Nielsen is a 55-year-old gentleman with history of neuropathy, heart failure, diabetes, hypertension, hyperlipidemia, restrictive lung disease, anxiety with somatic features who presents to the emergency department due to altered mental status. Symptom onset was yesterday afternoon. Initially he had fairly mild symptoms of just not feeling well and word finding difficulty. Symptoms progressed and are now moderate to severe. Specifically woke up from a nap at about 2 PM and had marked worse speech. He reports feeling heavy and weakness on his left side. He has had episodes of neurologic symptoms however nothing like this or quite as severe. Denies infectious symptoms. No other specific exacerbating or alleviating factors identified. Review of Systems General: Reports: 10 or more systems reviewed and unremarkable except in HPI and below PFSH ED PFSH: Medical History Acute bronchitis Anxiety with somatic features Bright red rectal bleeding Chronic low back pain Chronic neck pain Congestive heart failure COVID-19 Diastolic heart failure Dizziness Essential (primary) hypertension History of colon polyps History of CVA (cerebrovascular accident) 2005 --left-sided weakness History of NH (myocardial infarction) History of TIA (transient ischemic attack) Hypertriglyceridemia Hypothyroidism Internal hemorrhoids Left ventricular hypertrophy Major depressive disorder, recurrent, moderate MRSA (methicillin resistant Staphylococcus aureus) Nephrolithiasis Persistent moderate somatic symptom disorder with predominant pain Pharyngitis, acute Psychiatric care Surgical History H/O esophagogastroduodenoscopy (05/10/20) H/O neck surgery x 5 ( some of those were for a postop MRSA infection ) History of colonoscopy 12/2014 --small tubular adenoma, limited diverticulosis 02/2018 --small internal hemorrhoids S/P appendectomy S/P cholecystectomy S/P hernia repair ventral with mesh x 2 Family History Mother CHF (congestive heart failure) Thyroid disease Sister Thyroid disease Father A-fib Brother Heart disease HX STENTS Other CAD (coronary artery disease) Diabetes Social History Second hand smoke exposure: Yes Alcohol intake: never Lives independently: Yes Household members: spouse Marital status: Current occupational status: disabled History of recent travel: Yes [facility] Out of state: Yes Current gender identity: Male Physical Exam Narrative: EXAM NARRATIVE: GENERAL/CONSTITUTIONAL -mildly ill appearing. No acute distress. Eyes - PERRL, no conjunctival injection ENMT - Atraumatic external nose and ears. Moist mucous membranes NECK - supple. trachea midline CARDIOVASCULAR - regular rate and rhythm. Peripheral pulses 2+ and equal RESPIRATORY -clear to auscultation bilaterally. No retractions or accessory muscle use. ABDOMEN/GI - Nontender, Nondistended. No tenderness to percussion or evidence of peritonitis MSK - Extremities without obvious deformity or tenderness to palpation SKIN - Warm, Dry NEURO - alert and appropriately oriented. No facial droop or facial asymmetry. Speech is mildly dysarthric and there is dysmetria/stuttering. Patient subjectively endorses tongue heaviness however no asymmetry appreciated in the oropharynx. Left upper extremity weakness and sensory changes. NIHSS 5 (though limitations exist given patient's baseline left upper extremity function) PSYCH - Appropriate mood and affect Course ED course: - Patient was seen and evaluated by me at bedside - Patient placed on cardiac monitors, IV access obtained - Initial evaluation notable for exam as noted above. Given duration of symptoms patient is not a candidate for thrombolytics at this time. - Labs notable for mild leukocytosis. Metabolic panel with mild abnormalities though likely not significant enough to cause patient symptoms. TSH elevated with normal free T4. - Imaging notable for negative chest x-ray. Negative head CT without contrast, no significant vascular abnormality to explain patient's symptoms, mild disease is noted in the neck. - Upon serial reexamination the patient's condition was similar. I discussed the case with neurology at [facility] in [place] who recommended MRI - Patient care handed off to overnight ED physician Dr. Arriaga pending MRI and reassessment of patient's condition Vital Signs: Vital signs: Vital Signs Temperature 98.4 F 02/08/21 18:36 Pulse Rate 66 02/08/21 22:41 Respiratory Rate 19 H 02/08/21 22:41 Blood Pressure 164/100 02/08/21 22:41 Pulse Oximetry 96 02/08/21 22:41 MDM - Altered Mental Status Medical Records: Attestation: I reviewed the patient's medical records. Lab Data: Attestation: I reviewed the patient's lab results. Labs: Lab Results 02/08/21 02/08/21 02/08/21 19:59 20:08 20:22 WBC RBC Hgb Hct MCV MCH MCHC RDW Plt Count MPV Neut % (Auto) Lymph % (Auto) [place] % (Auto) Eos % (Auto) Baso % (Auto) Neut # (Auto) Lymph # (Auto) [place] # (Auto) Eos # (Auto) Baso # (Auto) Nucleated RBC % (a uto) Nucleated RBCs # Sodium Potassium Chloride Carbon Dioxide Anion Gap BUN Creatinine GFR Calculation Glucose POC Glucose 106 mg/dL mg/dL (70-110) Calculated Osmolal ity Calcium Total Bilirubin AST ALT Alkaline Phosphata se Total Protein Albumin Globulin TSH Free T4 Urine Color Yellow (Yellow) Urine Appearance Clear (CLEAR) Urine pH 7 (5-7) Ur Specific Gravit y 1.005 (1.005-1.030) Urine Protein Neg (Negative) Urine Glucose (UA) 4+ H (Normal) Urine Ketones Negative (Negative) Urine Blood Neg (Negative) Urine Nitrate Negative (Negative) Urine Bilirubin Neg (Negative) Urine Urobilinogen Norm mg/dL mg/dL (Negative) Ur Leukocyte Camille ase Negative (Negative) Urine Opiates Scre en Negative ng/mL ng /mL (Negative) Ur Barbiturates Sc reen Negative ng/mL ng /mL (Negative) Ur Phencyclidine S crn Negative ng/mL ng /mL (Negative) Ur Amphetamines Sc reen Negative ng/mL ng /mL (Negative) U Benzodiazepines Scrn Negative ng/mL ng /mL (Negative) Urine Cocaine Scre en Negative ng/mL ng /mL (Negative) U Marijuana (THC) Screen Positive ng/mL H ng/mL (Negative) 02/08/21 02/08/21 02/08/21 20:42 20:42 20:44 WBC 11.5 10^3/uL H 10 ^3/uL (4.0-10.0) RBC 5.15 10^6/uL 10^6 /uL (4.1-5.3) Hgb 15.0 g/dL g/dL (11.7-16.6) Hct 45.0 % % (42.0-52.0) MCV 87.4 fl fl (80-94) MCH 29.1 pg pg (28.0-34.0) MCHC 33.3 g/dL g/dL (30.0-36.0) RDW 12.6 % % (12.1-15.1) Plt Count 324 10^3/cmm 10^3 /cmm (130-400) MPV 10.8 fL H fL (7.4-10.4) Neut % (Auto) 67.3 % % Lymph % (Auto) 22.1 % % [place] % (Auto) 7.0 % % Eos % (Auto) 2.7 % % Baso % (Auto) 0.6 % % Neut # (Auto) 7.75 10^3/uL H 10 ^3/uL (1.8-7.7) Lymph # (Auto) 2.5 10^3/uL 10^3/ uL (0.8-4.8) [place] # (Auto) 0.8 10^3/uL 10^3/ uL (0.2-0.9) Eos # (Auto) 0.3 10^3/uL 10^3/ uL (0.0-0.8) Baso # (Auto) 0.1 10^3/uL 10^3/ uL (0.0-0.1) Nucleated RBC % (a uto) 0 % % Nucleated RBCs # 0.0 /100WBC /100W BC Sodium 133 mmol/L L mmol /L (136-145) Potassium 4.0 mmol/L mmol/L (3.5-5.1) Chloride 98 mmol/L mmol/L (98-107) Carbon Dioxide 21 mmol/L L mmol/ L (22-29) Anion Gap 18.0 (5-19) BUN 14 mg/dL mg/dL (6-20) Creatinine 0.9 mg/dL mg/dL (0.7-1.2) GFR Calculation 87.6 mL/min L mL/ min (90-130) Glucose 101 mg/dL mg/dL (65-115) POC Glucose Calculated Osmolal ity 277 mOsm/kg L mOs m/kg (285-295) Calcium 8.4 mg/dL L mg/dL (8.5-10.5) Total Bilirubin 0.2 mg/dL mg/dL (0.15-1.2) AST 19 U/L U/L (0-40) ALT 31 U/L U/L (0-41) Alkaline Phosphata se 69 IU/L IU/L (40-130) Total Protein 7.2 g/dL g/dL (6.6-8.7) Albumin 4.4 g/dL g/dL (3.5-5.2) Globulin 2.8 g/dL g/dL (1.3-4.6) TSH 10.45 uIU/mL H uI U/mL (0.27-4.20) Free T4 1.18 ng/dL ng/dL (0.82-1.77) Urine Color Urine Appearance Urine pH Ur Specific Gravit y Urine Protein Urine Glucose (UA) Urine Ketones Urine Blood Urine Nitrate Urine Bilirubin Urine Urobilinogen Ur Leukocyte Camille ase Urine Opiates Scre en Ur Barbiturates Sc reen Ur Phencyclidine S crn Ur Amphetamines Sc reen U Benzodiazepines Scrn Urine Cocaine Scre en U Marijuana (THC) Screen EKG Data^: EKG 1: Attestation: I personally reviewed and interpreted this EKG as follows: EKG interpretation date: 02/08/21 EKG interpretation time: 20:23 Interpretation: Twelve-lead EKG shows a regular rhythm at a rate of 60. GA interval 155, QRS duration 109, QTc 391. Normal axis. Interpretation: Sinus rhythm. Discharge Plan Discharge Patient Disposition: Home Clinical Impression: Essential (primary) hypertension, Stroke-like symptom Condition: Stable Prescriptions: New simvastatin 80 mg tablet 80 mg PO DAILY Qty: 30 RF: 0 aspirin 325 mg tablet,delayed release (DR/EC) 325 mg PO DAILY Qty: 30 RF: 0 No Action pantoprazole [Protonix] 40 mg tablet,delayed release (DR/EC) 40 mg PO DAILY Qty: 90 RF: 1 nitroglycerin 0.4 mg tablet, sublingual 0.4 mg SUBLINGUAL ONCE PRN (Reason: Chest Pain) RF: 0 melatonin 3 mg tablet 3 mg PO BEDTIME PRN (Reason: sleep) Qty: 30 RF: 3 Seroquel 50 mg tablet 50 mg PO .bedtime Qty: 90 RF: 2 quetiapine [Seroquel] 25 mg tablet 25 mg PO DAILY PRN (Reason: irritabilty/agitation/anxiety) Qty: 30 RF: 3 (DME) CPAP supplies See Rx Instructions .Route .MEDSUPPLY Qty: 1 RF: 0 hydrocodone-acetaminophen 7.5-325 mg tablet 1 tab PO BID PRN (Reason: pain) 7 Days Qty: 14 RF: 0 (DME) blood-glucose meter [OneTouch Ultra2 Meter] Misc See Rx Instructions .Route Qty: 1 RF: 0 (DME) OneTouch Ultra Test Strip See Rx Instructions .Route Qty: 100 RF: 3 gabapentin 400 mg capsule 800 mg PO TID 90 Days Qty: 540 RF: 0 tizanidine 4 mg tablet 4 mg PO TID PRN (Reason: muscle spasticity) Qty: 90 RF: 2 furosemide 40 mg tablet 40 mg PO BID PRN (Reason: weight gain) Qty: 180 RF: 1 metoprolol tartrate 25 mg tablet 25 mg PO BID@0800,2100 Qty: 180 RF: 3 (DME) AUTO - TITRATING CPAP 6-10CM See Rx Instructions .Route .MEDSUPPLY Qty: 1 RF: 0 fenofibrate nanocrystallized [Tricor] 145 mg tablet 145 mg PO DAILY 90 Days Qty: 90 RF: 0 levothyroxine 112 mcg tablet 112 mcg PO DAILY 45 Days Qty: 45 RF: 0 isosorbide mononitrate 30 mg tablet extended release 24 hr 15 mg PO BID Qty: 30 RF: 6 Jardiance 10 mg tablet 10 mg PO QAM Qty: 90 RF: 0 albuterol sulfate 90 mcg/actuation HFA aerosol inhaler 2 inh INHALATION Q4H PRN (Reason: shortness of breath or wheezing) Qty: 18 RF: 0 potassium chloride 20 mEq tablet extended release 20 meq PO DAILY@0800 RF: 0 Discharge Orders: Discharge ED (Routine); Ordered 02/09/21 Ordered By: Carlota Arriaga Referrals: Qi Muhammad DO [Primary Care Provider] - 1-3 days Discharge Diet: Usual diet Discharge Activity: Resume usual activity Patient Instructions: Weakness (ED) Activity Restrictions/Additional Instructions: Thank you for visiting the emergency department. You were seen and evaluated for strokelike symptoms. The exact cause of your symptoms is unclear, MRI did not reveal an obvious cause. Please follow-up with neurology and your primary care provider. Please return to the emergency department for recurrent or worsening symptoms or anything else that you are concerned about and feel needs emergency department evaluation. Stand Alone Forms: Work/School Release Coding Level of Care Code ED Acute Care Certified Nursing Assistant for Emy Fwd Documented by User: Carlota Arriaga MD 02/09/21 01:42 HPI - Altered Mental Status General: Chief Complaint: Neuro Symptoms/Deficit Stated Complaint: CONFUSION/WEAKNESS Time Seen by Provider: 02/08/21 18:26 PFSH ED PFSH: Medical History Acute bronchitis Anxiety with somatic features Bright red rectal bleeding Chronic low back pain Chronic neck pain Congestive heart failure COVID-19 Diastolic heart failure Dizziness Essential (primary) hypertension History of colon polyps History of CVA (cerebrovascular accident) 2005 --left-sided weakness History of NH (myocardial infarction) History of TIA (transient ischemic attack) Hypertriglyceridemia Hypothyroidism Internal hemorrhoids Left ventricular hypertrophy Major depressive disorder, recurrent, moderate MRSA (methicillin resistant Staphylococcus aureus) Nephrolithiasis Persistent moderate somatic symptom disorder with predominant pain Pharyngitis, acute Psychiatric care Surgical History H/O esophagogastroduodenoscopy (05/10/20) H/O neck surgery x 5 ( some of those were for a postop MRSA infection ) History of colonoscopy 12/2014 --small tubular adenoma, limited diverticulosis 02/2018 --small internal hemorrhoids S/P appendectomy S/P cholecystectomy S/P hernia repair ventral with mesh x 2 Family History Mother CHF (congestive heart failure) Thyroid disease Sister Thyroid disease Father A-fib Brother Heart disease HX STENTS Other CAD (coronary artery disease) Diabetes Social History Second hand smoke exposure: Yes Alcohol intake: never Lives independently: Yes Household members: spouse Marital status: Current occupational status: disabled History of recent travel: Yes Details: [place] Out of state: Yes Current gender identity: Male Course Vital Signs: Vital signs: Vital Signs Temperature 98.4 F 02/08/21 18:36 Pulse Rate 66 02/08/21 22:41 Respiratory Rate 19 H 02/08/21 22:41 Blood Pressure 164/100 02/08/21 22:41 Pulse Oximetry 96 02/08/21 22:41 MDM - Altered Mental Status MDM Narrative: Medical decision making narrative: I took patient over from Dr. Cook pending MRI of his brain MRI shows no acute signs of a stroke. When spoke to patient he has had some new stuttering and some increased weakness to his left side he states he does have to walk with a walker at home now. He is able to ambulate here with a walker. I did offer him admission with this weakness he states he does not want to stay in with a normal MRI he would like to go home we will start him on a statin and aspirin have him follow-up with his PCP he is return if worsening he understands and agrees to plan. Lab Data: Labs: Lab Results 02/08/21 02/08/21 02/08/21 19:59 20:08 20:22 WBC RBC Hgb Hct MCV MCH MCHC RDW Plt Count MPV Neut % (Auto) Lymph % (Auto) [place] % (Auto) Eos % (Auto) Baso % (Auto) Neut # (Auto) Lymph # (Auto) [place] # (Auto) Eos # (Auto) Baso # (Auto) Nucleated RBC % (a uto) Nucleated RBCs # Sodium Potassium Chloride Carbon Dioxide Anion Gap BUN Creatinine GFR Calculation Glucose POC Glucose 106 mg/dL mg/dL (70-110) Calculated Osmolal ity Calcium Total Bilirubin AST ALT Alkaline Phosphata se Total Protein Albumin Globulin TSH Free T4 Urine Color Yellow (Yellow) Urine Appearance Clear (CLEAR) Urine pH 7 (5-7) Ur Specific Gravit y 1.005 (1.005-1.030) Urine Protein Neg (Negative) Urine Glucose (UA) 4+ H (Normal) Urine Ketones Negative (Negative) Urine Blood Neg (Negative) Urine Nitrate Negative (Negative) Urine Bilirubin Neg (Negative) Urine Urobilinogen Norm mg/dL mg/dL (Negative) Ur Leukocyte Camille ase Negative (Negative) Urine Opiates Scre en Negative ng/mL ng /mL (Negative) Ur Barbiturates Sc reen Negative ng/mL ng /mL (Negative) Ur Phencyclidine S crn Negative ng/mL ng /mL (Negative) Ur Amphetamines Sc reen Negative ng/mL ng /mL (Negative) U Benzodiazepines Scrn Negative ng/mL ng /mL (Negative) Urine Cocaine Scre en Negative ng/mL ng /mL (Negative) U Marijuana (THC) Screen Positive ng/mL H ng/mL (Negative) 02/08/21 02/08/21 02/08/21 20:42 20:42 20:44 WBC 11.5 10^3/uL H 10 ^3/uL (4.0-10.0) RBC 5.15 10^6/uL 10^6 /uL (4.1-5.3) Hgb 15.0 g/dL g/dL (11.7-16.6) Hct 45.0 % % (42.0-52.0) MCV 87.4 fl fl (80-94) MCH 29.1 pg pg (28.0-34.0) MCHC 33.3 g/dL g/dL (30.0-36.0) RDW 12.6 % % (12.1-15.1) Plt Count 324 10^3/cmm 10^3 /cmm (130-400) MPV 10.8 fL H fL (7.4-10.4) Neut % (Auto) 67.3 % % Lymph % (Auto) 22.1 % % [place] % (Auto) 7.0 % % Eos % (Auto) 2.7 % % Baso % (Auto) 0.6 % % Neut # (Auto) 7.75 10^3/uL H 10 ^3/uL (1.8-7.7) Lymph # (Auto) 2.5 10^3/uL 10^3/ uL (0.8-4.8) [place] # (Auto) 0.8 10^3/uL 10^3/ uL (0.2-0.9) Eos # (Auto) 0.3 10^3/uL 10^3/ uL (0.0-0.8) Baso # (Auto) 0.1 10^3/uL 10^3/ uL (0.0-0.1) Nucleated RBC % (a uto) 0 % % Nucleated RBCs # 0.0 /100WBC /100W BC Sodium 133 mmol/L L mmol /L (136-145) Potassium 4.0 mmol/L mmol/L (3.5-5.1) Chloride 98 mmol/L mmol/L (98-107) Carbon Dioxide 21 mmol/L L mmol/ L (22-29) Anion Gap 18.0 (5-19) BUN 14 mg/dL mg/dL (6-20) Creatinine 0.9 mg/dL mg/dL (0.7-1.2) GFR Calculation 87.6 mL/min L mL/ min (90-130) Glucose 101 mg/dL mg/dL (65-115) POC Glucose Calculated Osmolal ity 277 mOsm/kg L mOs m/kg (285-295) Calcium 8.4 mg/dL L mg/dL (8.5-10.5) Total Bilirubin 0.2 mg/dL mg/dL (0.15-1.2) AST 19 U/L U/L (0-40) ALT 31 U/L U/L (0-41) Alkaline Phosphata se 69 IU/L IU/L (40-130) Total Protein 7.2 g/dL g/dL (6.6-8.7) Albumin 4.4 g/dL g/dL (3.5-5.2) Globulin 2.8 g/dL g/dL (1.3-4.6) TSH 10.45 uIU/mL H uI U/mL (0.27-4.20) Free T4 1.18 ng/dL ng/dL (0.82-1.77) Urine Color Urine Appearance Urine pH Ur Specific Gravit y Urine Protein Urine Glucose (UA) Urine Ketones Urine Blood Urine Nitrate Urine Bilirubin Urine Urobilinogen Ur Leukocyte Camille ase Urine Opiates Scre en Ur Barbiturates Sc reen Ur Phencyclidine S crn Ur Amphetamines Sc reen U Benzodiazepines Scrn Urine Cocaine Scre en U Marijuana (THC) Screen Discharge Plan Discharge Patient Disposition: Home Clinical Impression: Essential (primary) hypertension, Stroke-like symptom Condition: Stable Prescriptions: New simvastatin 80 mg tablet 80 mg PO DAILY Qty: 30 RF: 0 aspirin 325 mg tablet,delayed release (DR/EC) 325 mg PO DAILY Qty: 30 RF: 0 No Action pantoprazole [Protonix] 40 mg tablet,delayed release (DR/EC) 40 mg PO DAILY Qty: 90 RF: 1 nitroglycerin 0.4 mg tablet, sublingual 0.4 mg SUBLINGUAL ONCE PRN (Reason: Chest Pain) RF: 0 melatonin 3 mg tablet 3 mg PO BEDTIME PRN (Reason: sleep) Qty: 30 RF: 3 Seroquel 50 mg tablet 50 mg PO .bedtime Qty: 90 RF: 2 quetiapine [Seroquel] 25 mg tablet 25 mg PO DAILY PRN (Reason: irritabilty/agitation/anxiety) Qty: 30 RF: 3 (DME) CPAP supplies See Rx Instructions .Route .MEDSUPPLY Qty: 1 RF: 0 hydrocodone-acetaminophen 7.5-325 mg tablet 1 tab PO BID PRN (Reason: pain) 7 Days Qty: 14 RF: 0 (DME) blood-glucose meter [OneTouch Ultra2 Meter] Misc See Rx Instructions .Route Qty: 1 RF: 0 (DME) OneTouch Ultra Test Strip See Rx Instructions .Route Qty: 100 RF: 3 gabapentin 400 mg capsule 800 mg PO TID 90 Days Qty: 540 RF: 0 tizanidine 4 mg tablet 4 mg PO TID PRN (Reason: muscle spasticity) Qty: 90 RF: 2 furosemide 40 mg tablet 40 mg PO BID PRN (Reason: weight gain) Qty: 180 RF: 1 metoprolol tartrate 25 mg tablet 25 mg PO BID@0800,2100 Qty: 180 RF: 3 (DME) AUTO - TITRATING CPAP 6-10CM See Rx Instructions .Route .MEDSUPPLY Qty: 1 RF: 0 fenofibrate nanocrystallized [Tricor] 145 mg tablet 145 mg PO DAILY 90 Days Qty: 90 RF: 0 levothyroxine 112 mcg tablet 112 mcg PO DAILY 45 Days Qty: 45 RF: 0 isosorbide mononitrate 30 mg tablet extended release 24 hr 15 mg PO BID Qty: 30 RF: 6 Jardiance 10 mg tablet 10 mg PO QAM Qty: 90 RF: 0 albuterol sulfate 90 mcg/actuation HFA aerosol inhaler 2 inh INHALATION Q4H PRN (Reason: shortness of breath or wheezing) Qty: 18 RF: 0 potassium chloride 20 mEq tablet extended release 20 meq PO DAILY@0800 RF: 0 Discharge Orders: Discharge ED (Routine); Ordered 02/09/21 Ordered By: Carlota Arriaga Referrals: Qi Muhammad DO [Primary Care Provider] - 1-3 days Discharge Diet: Usual diet Discharge Activity: Resume usual activity Patient Instructions: Weakness (ED) Activity Restrictions/Additional Instructions: Thank you for visiting the emergency department. You were seen and evaluated for strokelike symptoms. The exact cause of your symptoms is unclear, MRI did not reveal an obvious cause. Please follow-up with neurology and your primary care provider. Please return to the emergency department for recurrent or worsening symptoms or anything else that you are concerned about and feel needs emergency department evaluation. Stand Alone Forms: Work/School Release Coding Level of Care Code ED Acute Care Certified Nursing Assistant for Emy Ford
[2021-02-08 18:36] VITALS: BP 187/102; PULSE 69; RESP 19; TEMP 36.9; O2SAT 95; BMI 38.4
--- NOTE | 2021-02-08 18:40 | XR_ITS ---
WS: [id number] Portable AP upright chest, 02/08/2021 Clinical Data: AMS Comparison: Portable chest, 06/14/2020. Findings: No nodules, masses or effusions are seen. The heart is normal. The pulmonary vascularity is not increased. No pneumonia or pneumothorax is seen. Monitor leads on the chest wall. XR/XR chest 1V portable [id number] Impression: Negative chest.
--- NOTE | 2021-02-08 18:40 | CTR_ITS ---
PROCEDURE INFORMATION: Exam: CT Angiography Head With Contrast, Arteriography Exam date and time: 02/08/2021 6:40 PM Age: 55 years old Clinical indication: Speech disturbance and weakness; Aphasia; Prior surgery; Additional info: AMS, stroke like symptoms TECHNIQUE: Imaging protocol: Computed tomography angiography of the head with contrast. Exam focused on the arteries. 3D rendering (Not supervised by radiologist): MIP and/or 3D reconstructed images were created by the technologist. Radiation optimization: All CT scans at this facility use at least one of these dose optimization techniques: automated exposure control; mA and/or kV adjustment per patient size (includes targeted exams where dose is matched to clinical indication); or iterative reconstruction. Contrast material: OMNI 350; Contrast volume: 95 ml; Contrast route: INTRAVENOUS (IV); COMPARISON: CT angio headneck* [id number] 04/08/2019 12:17 AM RADIATION DOSE METRICS: Total DLP (mGy-cm): 2638.06 FINDINGS: ANTERIOR CIRCULATION: Right internal carotid artery: Unremarkable. Intracranial segment is patent with no significant stenosis. No aneurysm. Right middle cerebral artery: Unremarkable. No occlusion or significant stenosis. No aneurysm. Right anterior cerebral artery: Unremarkable. No occlusion or significant stenosis. No aneurysm. Left internal carotid artery: Unremarkable. Intracranial segment is patent with no significant stenosis. No aneurysm. Left middle cerebral artery: Unremarkable. No occlusion or significant stenosis. No aneurysm. Left anterior cerebral artery: Unremarkable. No occlusion or significant stenosis. No aneurysm. POSTERIOR CIRCULATION: Right vertebral artery: Unremarkable. No occlusion or significant stenosis. No aneurysm. Left vertebral artery: Unremarkable. No occlusion or significant stenosis. No aneurysm. Basilar artery: Unremarkable. No occlusion or significant stenosis. No aneurysm. Right posterior cerebral artery: Unremarkable. No occlusion or significant stenosis. No aneurysm. Left posterior cerebral artery: Unremarkable. No occlusion or significant stenosis. No aneurysm. Brain: No definite mass, mass effect, or midline shift. Cerebral ventricles: No ventriculomegaly. Bones/joints: Unremarkable. No acute fracture. Soft tissues: Unremarkable. IMPRESSION: No intracranial large vessel significant stenosis or occlusion. PROCEDURE INFORMATION: Exam: CT Angiography Neck With Contrast Exam date and time: 02/08/2021 6:40 PM Age: 55 years old Clinical indication: Speech disturbance and weakness; Aphasia; Prior surgery; Additional info: AMS, stroke like symptoms TECHNIQUE: Imaging protocol: Computed tomography angiography of the neck with contrast. 3D rendering (Not supervised by radiologist): MIP and/or 3D reconstructed images were created by the technologist. Radiation optimization: All CT scans at this facility use at least one of these dose optimization techniques: automated exposure control; mA and/or kV adjustment per patient size (includes targeted exams where dose is matched to clinical indication); or iterative reconstruction. Contrast material: OMNI 350; Contrast volume: 95 ml; Contrast route: INTRAVENOUS (IV); COMPARISON: CT angio headne* [id number] 04/08/2019 12:17 AM RADIATION DOSE METRICS: Total DLP (mGy-cm): 2638.06 FINDINGS: Right common carotid artery: No stenosis. No dissection or occlusion. Right internal carotid artery: Small volume plaque in the proximal right ICA. Minimal stenosis less than 50%. Negative for dissection. Right external carotid artery: No occlusion or stenosis of the origin. Left common carotid artery: No stenosis. No dissection or occlusion. Left internal carotid artery: Small to moderate volume plaque in the proximal left ICA. Mild stenosis less than 50%. Negative for dissection. Left external carotid artery: No occlusion or stenosis of the origin. Right vertebral artery: No stenosis. No dissection or occlusion. Left vertebral artery: No stenosis. No dissection or occlusion. Soft tissues: Normal. No significant soft tissue swelling. Bones/joints: No acute fracture. Extensive surgical change. C3-C4 ACDF. Posterior fusion of C3 through C6 with laminectomy. CT/CT angio [facility]* [id number] IMPRESSION: Less than 50% stenosis in the carotid arteries. Negative for vascular occlusion in the neck. REFERENCES: NASCET CRITERIA. The degree of internal carotid artery stenosis is based on NASCET criteria. Normal is no stenosis. Mild is less than 50% stenosis. Moderate is 50-69% stenosis. Severe is 70% to 99% stenosis. Total occlusion is no detectable patent lumen. Radiation Dose CTDIVOL = (mGy): DLP = 2638.06~2638.06 (mGy-cm)
--- NOTE | 2021-02-08 18:40 | CTR_ITS ---
PROCEDURE INFORMATION: Exam: CT Head Without Contrast Exam date and time: 02/08/2021 6:40 PM Age: 55 years old Clinical indication: Altered mental status/memory loss and speech disturbance; Slurred speech; Additional info: AMS, stroke like symptoms TECHNIQUE: Imaging protocol: Computed tomography of the head without contrast. Radiation optimization: All CT scans at this facility use at least one of these dose optimization techniques: automated exposure control; mA and/or kV adjustment per patient size (includes targeted exams where dose is matched to clinical indication); or iterative reconstruction. COMPARISON: CT head wo con* [id number] 04/07/2019 9:10 PM RADIATION DOSE METRICS: Total DLP (mGy-cm): 1073.274 FINDINGS: Brain: Normal. No hemorrhage. Unremarkable white matter. No mass effect. Cerebral ventricles: No ventriculomegaly. Paranasal sinuses: Visualized sinuses are unremarkable. No fluid levels. Mastoid air cells: Visualized mastoid air cells are well aerated. Bones/joints: Unremarkable. No acute fracture. Soft tissues: Unremarkable. CT/CT head wo con* [id number] IMPRESSION: No acute intracranial abnormality. Radiation Dose CTDIVOL = (mGy): DLP = 1073.274 (mGy-cm)
--- NOTE | 2021-02-08 18:41 | ECG_ITS ---
[facility] Test Date: 2021-02-08 Pat Name: Ben Nielsen Department: Room: Gender: Male [place] [employer]: : 1965 Requested By: Sunil Lerma Order Number: [id number] Knutson MD: Tony Reyes M.D. Measurements Intervals [place] Rate: 60 P: 131 ME: 155 QRS: 119 QRSD: 109 T: 123 QT: 391 QTc: 391 Interpretive Statements SINUS RHYTHM ARM LEADS REVERSED [INVERTED P AND QRS IN I] Compared to ECG 06/14/2020 21:04:55 No significant changes Electronically Signed On 02-08-2021 23:46:07 DISTRIBUTION TECH by Tony Reyes M.D. [id number]
[2021-02-08] MEDS: iohexol 350 mg/mL 100 mL Btl IV (19:01)
[2021-02-08 19:55] VITALS: BP 179/102; PULSE 64; RESP 29; O2SAT 97
[2021-02-08 20:07] LABS: Add Urine Microscopic? NO; Charge for UA Resulting for Rev
[2021-02-08 20:11] LABS: Glucose Point of Care 106 mg/dL (70-110)
[2021-02-08 20:13] LABS: Bilirubin Urine Neg (Negative); Blood Urine Neg (Negative); Glucose Urine UA 4+ (Normal); Ketones Urine Negative (Negative); Leukocyte Esterase Urine Negative (Negative); Nitrate Urine Negative (Negative); Protein Urine Neg (Negative); Specific Gravity, Urine 1.005 (1.005-1.030); Urine Appearance Clear (CLEAR); Urine Color Yellow (Yellow); Urobilinogen Urine Norm (Negative); pH Urine 7 (5-7)
[2021-02-08 20:37] LABS: Amphetamines Screen Urine Negative (Negative); Barbiturates Screen Urine Negative (Negative); Benzodiazepines Screen Urine Negative (Negative); Cocaine Screen Urine Negative (Negative); Opiate Screen Urine Negative (Negative); PCP Screen Urine Negative (Negative); THC Screen Urine Positive (Negative)
[2021-02-08 20:48] LABS: Basophils # 0.1 10^3/uL (0.0-0.1); Basophils % 0.6 %; Eosinophils # 0.3 10^3/uL (0.0-0.8); Eosinophils % 2.7 %; Lymphocytes # 2.5 10^3/uL (0.8-4.8); Lymphocytes % 22.1 %; Mean Corpuscular HGB Conc 33.3 g/dL (30.0-36.0); Mean Corpuscular Hemoglobin 29.1 pg (28.0-34.0); Mean Corpuscular Volume 87.4 fl (80-94); Mean Platelet Volume 10.8 fL (7.4-10.4); Monocytes # 0.8 10^3/uL (0.2-0.9); Neutrophils # 7.75 10^3/uL (1.8-7.7); Neutrophils % 67.3 %; Nucleated Red Blood Cells % 0 %; Platelet Count 324 10^3/cmm (130-400); Red Blood Count 5.15 10^6/uL (4.1-5.3); Red Cell Distribution Width 12.6 % (12.1-15.1); White Blood Count 11.5 10^3/uL (4.0-10.0)
[2021-02-08 21:24] LABS: Alanine Aminotransferase 31 U/L (0-41); Albumin Level 4.4 g/dL (3.5-5.2); Alkaline Phosphatase 69 IU/L (40-130); Aspartate Amino Transferase 19 U/L (0-40); Blood Urea Nitrogen 14 mg/dL (6-20); Calcium 8.4 mg/dL (8.5-10.5); Carbon Dioxide 21 mmol/L (22-29); Chloride 98 mmol/L (98-107); Creatinine Clr Calc Pharmacy 121.2368; Globulin 2.8 g/dL (1.3-4.6); Glomerular Filtration Rate 87.6 mL/min (90-130); Glucose 101 mg/dL (65-115); Osmolality Calculated 277 mOsm/kg (285-295); Sodium 133 mmol/L (136-145); Thyroid Stimulating Hormone 10.45 uIU/mL (0.27-4.20); Total Bilirubin 0.2 mg/dL (0.15-1.2); Total Protein 7.2 g/dL (6.6-8.7)
[2021-02-08 21:39] VITALS: RESP 21; O2SAT 96
[2021-02-08] MEDS: fentaNYL 50 mcg/mL INJ 2mL IVP (21:39)
[2021-02-08 21:45] VITALS: BP 161/98; PULSE 74; RESP 19; O2SAT 95
[2021-02-08 22:10] LABS: Free T4 Free Thyroxine 1.18 ng/dL (0.82-1.77)
--- NOTE | 2021-02-08 22:34 | MRR_ITS ---
PROCEDURE INFORMATION: Exam: MR Head Without Contrast Exam date and time: 02/08/2021 10:34 PM Age: 55 years old Clinical indication: Weakness, extremity; Additional info: Stroke like symptoms, dysarthria, dysmetric speech TECHNIQUE: Imaging protocol: MR of the head without contrast. COMPARISON: CT head wo con* [id number] 02/08/2021 6:55 PM FINDINGS: Brain: Scattered punctate T2 hyperintense signal changes randomly distributed in the bilateral cerebral hemisphere subcortical white matter areas. No space-occupying intracranial mass. Negative for intracranial hemorrhage. Roberto matter and white matter interfaces are preserved. No midline shift of brain. Negative for stricture diffusion in the brain parenchyma. No hemosiderin deposition within brain parenchyma. Cerebral ventricles: Normal. No ventriculomegaly. Bones/joints: Unremarkable. Paranasal sinuses: Normal as visualized. No acute sinusitis. Mastoid air cells: Normal as visualized. No mastoid effusion. Orbital cavity: Symmetric, unremarkable orbits. Soft tissues: Unremarkable. MR/MR head wo con* [id number] IMPRESSION: 1. No acute brain ischemia identified. 2. 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 Radiation Dose CTDIVOL = (mGy): DLP = (mGy-cm)
[2021-02-08 22:41] VITALS: BP 164/100; PULSE 66; RESP 19; O2SAT 96
[2021-02-08] MEDS: LORazepam 2 mg/mL INJ 1 mL 1 MG IVP (23:47)
== END 2021-02-09 01:37 | disposition home or self-care (01) ==
PROVIDERS: Emergency Medicine; Emergency Provider Emergency Medicine; PCP Family Medicine
DX: I11.0 Hypertensive heart disease with heart failure (principal); I50.30 Unspecified diastolic (congestive) heart failure; R41.82 Altered mental status, unspecified; R68.89 Other general symptoms and signs; Z86.73 Personal history of transient ischemic attack (TIA), and cerebral infarction without residual deficits; I25.2 Old myocardial infarction; Z77.22 Contact with and (suspected) exposure to environmental tobacco smoke (acute) (chronic)
CPT/HCPCS: 36416; 70450; 70496; 70498; 70551; 71045; 80053; 80306; 81003; 82962; 84439; 84443; 85025; 93005; 96374; 96375; 99284; J2060; J3010; Q9967

== ENCOUNTER → 2021-03-21 07:46 | Outpatient (BNVA) | payer MEDICARE, MEDICAID, SELFPAY | PROVIDERS: PCP Family Medicine; Visit Provider Nurse Practitioner Psychiatric/Mental Health | DX: F33.1 Major depressive disorder, recurrent, moderate (principal); F41.8 Other specified anxiety disorders; F45.1 Undifferentiated somatoform disorder | CPT/HCPCS: 99214 ==

== ENCOUNTER → 2021-03-28 13:05 | Outpatient (BNVA) | payer MEDICARE, MEDICAID, SELFPAY | PROVIDERS: PCP Family Medicine; Visit Provider Family Medicine | DX: E11.9 Type 2 diabetes mellitus without complications (principal); U07.1 COVID-19 | CPT/HCPCS: 80053; 83036 ==

== ENCOUNTER → 2021-05-02 07:14 | Outpatient (BNVA) | payer MEDICARE, MEDICAID, SELFPAY | PROVIDERS: PCP Family Medicine; Visit Provider Nurse Practitioner Psychiatric/Mental Health | DX: F33.1 Major depressive disorder, recurrent, moderate (principal); F41.8 Other specified anxiety disorders; F45.1 Undifferentiated somatoform disorder | CPT/HCPCS: 99214 ==

== ENCOUNTER → 2021-05-09 12:39 | Outpatient (BNVA) | payer MEDICARE, MEDICAID, SELFPAY | PROVIDERS: PCP Family Medicine; Visit Provider Anesthesiology Pain Medicine | DX: G89.29 Other chronic pain (principal); M54.50 Low back pain, unspecified; M47.22 Other spondylosis with radiculopathy, cervical region; M96.1 Postlaminectomy syndrome, not elsewhere classified; Z79.899 Other long term (current) drug therapy; Z87.891 Personal history of nicotine dependence | CPT/HCPCS: 99214 ==

== ENCOUNTER → 2021-05-29 13:39 | Outpatient (BNVA) | payer MEDICARE, MEDICAID, SELFPAY | PROVIDERS: PCP Family Medicine; Visit Provider Anesthesiology Pain Medicine | DX: M47.816 Spondylosis without myelopathy or radiculopathy, lumbar region (principal); G89.29 Other chronic pain; E11.9 Type 2 diabetes mellitus without complications; Z87.891 Personal history of nicotine dependence | CPT/HCPCS: 36416; 64635; 64636; 82962; J1030 ==

== ENCOUNTER → 2021-06-19 12:44 | Outpatient (BNVA) | payer MEDICARE, MEDICAID, SELFPAY | PROVIDERS: PCP Family Medicine; Visit Provider Anesthesiology Pain Medicine | DX: G89.29 Other chronic pain (principal); M47.816 Spondylosis without myelopathy or radiculopathy, lumbar region | CPT/HCPCS: 64493; 64494; 64495; J3490 ==

== ENCOUNTER → 2021-06-27 13:17 | Outpatient (BNVA) | payer MEDICARE, MEDICAID, SELFPAY | PROVIDERS: PCP Family Medicine; Visit Provider Family Medicine | DX: E03.9 Hypothyroidism, unspecified (principal); E11.9 Type 2 diabetes mellitus without complications | CPT/HCPCS: 83036; 84443; 85025 ==

== ENCOUNTER → 2021-07-03 08:30 | Outpatient (BNVA) | payer MEDICARE, MEDICAID, SELFPAY | PROVIDERS: PCP Family Medicine; Visit Provider Anesthesiology Pain Medicine | DX: G89.29 Other chronic pain (principal); M47.22 Other spondylosis with radiculopathy, cervical region; M96.1 Postlaminectomy syndrome, not elsewhere classified; Z79.899 Other long term (current) drug therapy; Z87.891 Personal history of nicotine dependence | CPT/HCPCS: 99214 ==

== ENCOUNTER → 2021-07-17 12:39 | Outpatient (BNVA) | payer MEDICARE, MEDICAID, SELFPAY | PROVIDERS: PCP Family Medicine; Visit Provider Anesthesiology Pain Medicine | DX: G89.29 Other chronic pain (principal); Z87.891 Personal history of nicotine dependence; M47.816 Spondylosis without myelopathy or radiculopathy, lumbar region | CPT/HCPCS: 64493; 64494; 64495; J3490 ==

== ENCOUNTER → 2021-08-01 18:28 | Outpatient (BNVA) | payer MEDICARE, MEDICAID, SELFPAY | PROVIDERS: PCP Family Medicine; Visit Provider Nurse Practitioner Family | DX: J02.9 Acute pharyngitis, unspecified (principal); R05.9 Cough, unspecified; J01.40 Acute pansinusitis, unspecified | CPT/HCPCS: 87400; 87880 ==

== ENCOUNTER → 2021-08-17 09:15 | Outpatient (BNVA) | payer MEDICARE, MEDICAID, SELFPAY | PROVIDERS: PCP Family Medicine; Visit Provider Anesthesiology Pain Medicine | DX: G89.29 Other chronic pain (principal); M54.16 Radiculopathy, lumbar region; M96.1 Postlaminectomy syndrome, not elsewhere classified; M47.22 Other spondylosis with radiculopathy, cervical region; Z79.899 Other long term (current) drug therapy; Z87.891 Personal history of nicotine dependence | CPT/HCPCS: 99214 ==

== ENCOUNTER 2021-08-28 18:25 | Emergency (ER) | payer MEDICARE, MEDICAID, SELFPAY ==
--- NOTE | 2021-08-28 18:31 | XRR_ITS ---
PROCEDURE INFORMATION: Exam: XR Chest Exam date and time: 08/28/2021 7:33 PM Age: 56 years old Clinical indication: Other: Dizzy; Additional info: Weakness TECHNIQUE: Imaging protocol: Radiologic exam of the chest. Views: 1 view. COMPARISON: CR XR chest 1V portable [id number] 02/08/2021 7:11 PM FINDINGS: Lungs: Unremarkable. No consolidation. Pleural spaces: Unremarkable. No pleural effusion. No pneumothorax. Heart/Mediastinum: Unremarkable. No cardiomegaly. Bones/joints: Unremarkable. XR/XR chest 1V portable [id number] IMPRESSION: No acute findings.
--- NOTE | 2021-08-28 18:31 | CTR_ITS ---
PROCEDURE INFORMATION: Exam: CT Head Without Contrast Exam date and time: 08/28/2021 6:43 PM Age: 56 years old Clinical indication: Dizziness; Prior surgery; Surgery date: 6+ months; Surgery type: Cervical x 5; Additional info: Weakness TECHNIQUE: Imaging protocol: Computed tomography of the head without contrast. Radiation optimization: All CT scans at this facility use at least one of these dose optimization techniques: automated exposure control; mA and/or kV adjustment per patient size (includes targeted exams where dose is matched to clinical indication); or iterative reconstruction. COMPARISON: MR head wo con* [id number] 02/08/2021 11:59 PM RADIATION DOSE METRICS: Total DLP (mGy-cm): 983.52 FINDINGS: Brain: Normal. No hemorrhage. Unremarkable white matter. No mass effect. Cerebral ventricles: No ventriculomegaly. Paranasal sinuses: Visualized sinuses are unremarkable. No fluid levels. Mastoid air cells: Visualized mastoid air cells are well aerated. Bones/joints: Unremarkable. No acute fracture. Soft tissues: Unremarkable. CT/CT head wo con* [id number] IMPRESSION: No acute intracranial abnormality.
[2021-08-28 18:54] VITALS: BP 165/95; PULSE 62; RESP 18; TEMP 36.8; O2SAT 96; BMI 34.9
[2021-08-28 19:24] LABS: Basophils # 0.1 10^3/uL (0.0-0.1); Basophils % 0.6 %; Eosinophils # 0.3 10^3/uL (0.0-0.8); Eosinophils % 3.4 %; Hematocrit 46.5 % (42.0-52.0); Hemoglobin 15.4 g/dL (11.7-16.6); Lymphocytes # 2.5 10^3/uL (0.8-4.8); Lymphocytes % 24.4 %; Mean Corpuscular HGB Conc 33.1 g/dL (30.0-36.0); Mean Corpuscular Hemoglobin 28.1 pg (28.0-34.0); Mean Corpuscular Volume 84.7 fl (80-94); Mean Platelet Volume 10.5 fL (7.4-10.4); Monocytes # 0.8 10^3/uL (0.2-0.9); Monocytes % 7.8 %; Neutrophils # 6.42 10^3/uL (1.8-7.7); Neutrophils % 63.5 %; Nucleated Red Blood Cells % 0 %; Platelet Count 312 10^3/cmm (130-400); Red Blood Count 5.49 10^6/uL (4.1-5.3); Red Cell Distribution Width 13.1 % (12.1-15.1); White Blood Count 10.1 10^3/uL (4.0-10.0)
[2021-08-28 19:50] LABS: Alanine Aminotransferase 17 U/L (0-41); Albumin Level 4.9 g/dL (3.5-5.2); Alkaline Phosphatase 80 IU/L (40-130); Anion Gap 16.9 (5-19); Aspartate Amino Transferase 14 U/L (0-40); Blood Urea Nitrogen 14 mg/dL (6-20); Calcium 9.2 mg/dL (8.5-10.5); Carbon Dioxide 25 mmol/L (22-29); Chloride 96 mmol/L (98-107); Globulin 3.3 g/dL (1.3-4.6); Glomerular Filtration Rate 87.3 mL/min (90-130); Glucose 111 mg/dL (65-115); Osmolality Calculated 279 mOsm/kg (285-295); Potassium 3.9 mmol/L (3.5-5.1); Sodium 134 mmol/L (136-145); Total Bilirubin 0.2 mg/dL (0.15-1.2); Total Protein 8.2 g/dL (6.6-8.7)
--- NOTE | 2021-08-28 20:46 | W.ED.GENADLT ---
HPI - General Adult General: Chief complaint: Neuro Symptoms/Deficit Stated complaint: confusion, high bp, dizzy Time Seen by Provider: 08/28/21 20:19 History of Present Illness: Patient is a 56-year-old male with a history of CHF, chronic cervical neck pain s/p prior plating and fixation in 2017 c/b MRSA infection presented to the emergency room with multiple complaints today including chest pressure, dyspnea, amnesia, balance issue, and shortness of breath for the last 3 months worsening. Patient tells that over the last 3-month the symptoms has been getting worse. Patient tells me that in the last week, he has had significant memory loss. Patient tells me today he cannot remember what he was doing for 2 hours. In addition, patient also reports feeling more fatigued than usual. Patient has chest pressure at baseline but reports that his chest pressure has been getting worse. Addition, patient reports that he has been having gait instability and balancing problem. At baseline, patient has been walking with a cane. Patient denies any recent fever/chills, neck pain, or infection. At baseline, patient has left-sided weakness and walks with a walker and uses a wheelchair at rest. Patient denies any bowel or bladder problem, saddle anesthesia, worsening weakness in the lower extremity. Patient reports mild vertical symptoms. Onset: acute on chronic x 3 months Duration:ongoing Location:home Severity:moderate Associated symptoms: Reports chest pain; Deny dyspnea, nausea, rash, palpitations or vomiting Review of Systems Const: Reports: other (+generalized weakness); Denies: fever(s) or chills Eyes: Denies: change in vision ENMT: Denies: mouth pain Card: Reports: chest pain; Denies: palpitations Resp: Denies: dyspnea or non-productive cough GI: Denies: abdominal pain, nausea, vomiting or diarrhea : Denies: dysuria Musc: Denies: extremity pain Skin/Breast: Denies: rash or new lesions Neuro: Reports: other (+amnesia, confusion); Denies: weakness in extremities Psych: Reports: other (Normal mood) Cornelius/Lymph: Denies: easy bruising PFS ED PFSH: Medical History Abnormal stress test Acute bronchitis Anxiety with somatic features Bright red rectal bleeding Chronic low back pain Chronic neck pain Congestive heart failure COVID-19 Diastolic heart failure Dizziness Essential (primary) hypertension History of colon polyps History of CVA (cerebrovascular accident) 2005 --left-sided weakness History of MA (myocardial infarction) History of TIA (transient ischemic attack) Hypertriglyceridemia Hypothyroidism Internal hemorrhoids Left ventricular hypertrophy Major depressive disorder, recurrent, moderate MRSA (methicillin resistant Staphylococcus aureus) Nephrolithiasis Persistent moderate somatic symptom disorder with predominant pain Psychiatric care Surgical History H/O esophagogastroduodenoscopy (05/10/20) H/O neck surgery x 5 ( some of those were for a postop MRSA infection ) History of colonoscopy 12/2014 --small tubular adenoma, limited diverticulosis 02/2018 --small internal hemorrhoids S/P appendectomy S/P cholecystectomy S/P hernia repair ventral with mesh x 2 Family History Mother CHF (congestive heart failure) Thyroid disease Sister Thyroid disease Father A-fib Brother Heart disease HX STENTS Other CAD (coronary artery disease) Diabetes Social History Smoking and tobacco status: current every day smoker (chew) smokeless tobacco Smokeless tobacco user: chewing tobacco Second hand smoke exposure: Yes Alcohol intake: never Lives independently: Yes Household members: spouse Marital status: Current occupational status: disabled History of recent travel: No Current gender identity: Male Physical Exam Const: COMMON NORMALS: alert HENMT: COMMON NORMALS: atraumatic HEAD & SCALP: atraumatic MOUTH: moist mucous membranes not abnormal Eye: COMMON NORMALS: EOMs intact bilaterally and conjunctivae normal CONJUNCTIVA: Yes conjunctivae normal Neck/C-Spine: COMMON NORMALS: full ROM and supple Resp: COMMON NORMALS: normal respiratory effort and clear to auscultation bilaterally AUSCULTATION: clear to auscultation bilaterally Cardio: COMMON NORMALS: regular rate RATE: regular rate GI: COMMON NORMALS: Soft to palpation and non-tender PALPATION: Yes Soft to palpation Extremity: COMMON NORMALS: full ROM Neuro: SENSORIUM/ORIENTATION: Yes alert MOTOR EXAM: No Abnormal motor strength present and Other motor observations present (no focal motor deficits) OTHER: Mental status? Awake, alert, and oriented to self, year, month, location, and situation.? Following simple axial and appendicular commands.? Has appropriate fund of knowledge, comprehension, and insight.? Able to recall and understands pertinent aspects of medical history and current treatment status.? ? Language? Speech is fluent without word-finding difficulties.? Intact naming, expression, crater and packer, and repetition.? ? Cranial nerves? 2,3,4,6: PERRL, EOMI with no nystagmus. 5: Decreased senation in the L side of the face consistent with baseline CN5 exam after surgery on 2017 7: Smile symmetrical, no facial droop.? 8: Hearing grossly intact.? 9,10: Normal palate movement.? 11: Normal strength in trapezius bilaterally 12: Tongue protrudes midline.? ? Motor examination? Normal bulk & tone. Strength as follows (R/L): Delts (5/4), Biceps (5/4), Triceps (5/4), Wrist ext (5/4), hip flexors (5/4), plantarflexors (5/4), dorsiflexors (5/4) consistent baseline strength after surgery in 2017 Sensation? Light Touch: Grossly intact and equal in upper and lower extremities bilaterally? Romberg: Negative.? Distal joint position sense intact ? Coordination? Iniewj-ot-[id number]-finger movements intact without dysmetria or past-pointing.? Rapid fingertaps: preserved amplitude without decriment.? No tremor, myoclonus or truncal ataxia.? ? Gait/stance? Steady, normal narrow base gait with appropriate arm swing and turning while using a cane Tandem gait without hesitation or loss of balance. Psych: COMMON NORMALS: speech normal SPEECH: Yes normal speech MOOD & AFFECT: Yes euthymic mood Course Vital Signs: Vital signs: Vital Signs Temperature 98.2 F 08/28/21 18:54 Pulse Rate 62 08/28/21 18:54 Respiratory Rate 18 08/28/21 18:54 Blood Pressure 165/95 08/28/21 18:54 Pulse Oximetry 96 08/28/21 18:54 [facility] - General Adult Medical Decision Making Patient is a 56-year-old male with a history of cervical spine fixation and plating in 2016 presenting to the emergency room with 3-month of worsening amnesia, generalized weakness, chest pressure, fatigue, amnesia, and confusion. On physical exam, patient is at baseline for neurological exam. Troponin within normal limit. EKG is nonischemic. I do not suspect ACS at this time. CT head negative for any acute finding. CTA head and neck negative for any dissection or any acute vascular injury. Doubt ACS/PE or other emergent causes of chest pain. No suspicion for aortic dissection given no widened mediastinum, 2+ upper extremity pulses, or tearing pain. No suspicion for PE given no pleuritic chest pain, recent immobilization or surgery hemoptysis, or other VTE risk factors. XR chest clear. I have given patient follow up with our leather case finisher to be seen by Dr. Reyes for chest pressure evaluation. Patient aware of a call from our leather case finisher to schedule for appointment(s) and verbalizes understanding of the importance of following up. At the present time it is unclear what is the cause of patient's symptoms. I have offered patient follow-up with Dr. Cook however patient declined electing to followup with his neurologist in [place]. Disposition: Discharge. Patient counseled regarding diagnostic impression, treatment plan. Patient given ED strict return precautions to return for continuation, worsening, or development of new symptoms. Instructed to f/u w/ PCP regarding symptoms today. Patient verbalized understanding. Lab Data : 08/28/21 19:10 08/28/21 19:10 Radiology Impressions Chest X-Ray 08/28/21 18:31 IMPRESSION: No acute findings. Head CT 08/28/21 18:31 IMPRESSION: No acute intracranial abnormality. Head/Neck CTA 08/28/21 20:48 IMPRESSION: No significant stenosis or occlusion of the intracranial arteries. IMPRESSION: No significant stenosis or occlusion of the neck arteries. REFERENCES: NASCET CRITERIA. The degree of internal carotid artery stenosis is based on NASCET criteria. Normal is no stenosis. Mild is less than 50% stenosis. Moderate is 50-69% stenosis. Severe is 70% to 99% stenosis. Total occlusion is no detectable patent lumen. Laboratory Results WBC 10.1 10^3/uL (4.0-10.0) H 08/28/21 19:10 RBC 5.49 10^6/uL (4.1-5.3) H 08/28/21 19:10 Hgb 15.4 g/dL (11.7-16.6) 08/28/21 19:10 Hct 46.5 % (42.0-52.0) 08/28/21 19:10 MCV 84.7 fl (80-94) 08/28/21 19:10 MCH 28.1 pg (28.0-34.0) 08/28/21 19:10 MCHC 33.1 g/dL (30.0-36.0) 08/28/21 19:10 RDW 13.1 % (12.1-15.1) 08/28/21 19:10 Plt Count 312 10^3/cmm (130-400) 08/28/21 19:10 MPV 10.5 fL (7.4-10.4) H 08/28/21 19:10 Neut % (Auto) 63.5 % 08/28/21 19:10 Lymph % (Auto) 24.4 % 08/28/21 19:10 [place] % (Auto) 7.8 % 08/28/21 19:10 Eos % (Auto) 3.4 % 08/28/21 19:10 Baso % (Auto) 0.6 % 08/28/21 19:10 Neut # (Auto) 6.42 10^3/uL (1.8-7.7) 08/28/21 19:10 Lymph # (Auto) 2.5 10^3/uL (0.8-4.8) 08/28/21 19:10 [place] # (Auto) 0.8 10^3/uL (0.2-0.9) 08/28/21 19:10 Eos # (Auto) 0.3 10^3/uL (0.0-0.8) 08/28/21 19:10 Baso # (Auto) 0.1 10^3/uL (0.0-0.1) 08/28/21 19:10 Nucleated RBC % (auto) 0 % 08/28/21 19:10 Nucleated RBCs # 0.0 /100WBC 08/28/21 19:10 Sodium 134 mmol/L (136-145) L 08/28/21 19:10 Potassium 3.9 mmol/L (3.5-5.1) 08/28/21 19:10 Chloride 96 mmol/L (98-107) L 08/28/21 19:10 Carbon Dioxide 25 mmol/L (22-29) 08/28/21 19:10 Anion Gap 16.9 (5-19) 08/28/21 19:10 BUN 14 mg/dL (6-20) 08/28/21 19:10 Creatinine 0.9 mg/dL (0.7-1.2) 08/28/21 19:10 GFR Calculation 87.3 mL/min (90-130) L 08/28/21 19:10 Glucose 111 mg/dL (65-115) 08/28/21 19:10 Calculated Osmolality 279 mOsm/kg (285-295) L 08/28/21 19:10 Calcium 9.2 mg/dL (8.5-10.5) 08/28/21 19:10 Total Bilirubin 0.2 mg/dL (0.15-1.2) 08/28/21 19:10 AST 14 U/L (0-40) 08/28/21 19:10 ALT 17 U/L (0-41) 08/28/21 19:10 Alkaline Phosphatase 80 IU/L (40-130) 08/28/21 19:10 Troponin T Baseline 9 ng/L (0-15) 08/28/21 19:10 Troponin T 120 Minute 8.45 ng/L (0-15) 08/28/21 21:05 Delta Troponin T -0.55 ABS# (0-10) L 08/28/21 21:05 Total Protein 8.2 g/dL (6.6-8.7) 08/28/21 19:10 Albumin 4.9 g/dL (3.5-5.2) 08/28/21 19:10 Globulin 3.3 g/dL (1.3-4.6) 08/28/21 19:10 Imaging Data Other Imaging: Radiologist's impression: [address] [address] [address] Scan Report Signed Patient: Ben Nielsen Unit #: [id number] : 1965 Age/Sex: 56 / M ADM Date: 08/28/21 Loc: ER Room/Bed: Attending Dr: Ordering Provider/Ordering MD: Carlota Arriaga MD Date of Service: 08/28/21 Procedure(s): CT head wo con* [id number] Accession Number(s): [id number] Report Number: [id number] PROCEDURE INFORMATION: Exam: CT Head Without Contrast Exam date and time: 08/28/2021 6:43 PM Age: 56 years old Clinical indication: Dizziness; Prior surgery; Surgery date: 6+ months; Surgery type: Cervical x 5; Additional info: Weakness TECHNIQUE: Imaging protocol: Computed tomography of the head without contrast. Radiation optimization: All CT scans at this facility use at least one of these dose optimization techniques: automated exposure control; mA and/or kV adjustment per patient size (includes targeted exams where dose is matched to clinical indication); or iterative reconstruction. COMPARISON: MR head wo con* [id number] 02/08/2021 11:59 PM RADIATION DOSE METRICS: Total DLP (mGy-cm): 983.52 FINDINGS: Brain: Normal. No hemorrhage. Unremarkable white matter. No mass effect. Cerebral ventricles: No ventriculomegaly. Paranasal sinuses: Visualized sinuses are unremarkable. No fluid levels. Mastoid air cells: Visualized mastoid air cells are well aerated. Bones/joints: Unremarkable. No acute fracture. Soft tissues: Unremarkable. CT/CT head wo con* [id number] IMPRESSION: No acute intracranial abnormality. ? Dictated By: Eugenio Núñez MD Signed By: Eugenio Núñez MD Signed Date/Time: 08/28/211915 DD/ [address] [address] XRay Report Signed Patient: Ben Nielsen Unit #: [id number] : 1965 Age/Sex: 56 / M ADM Date: 08/28/21 Loc: ER Room/Bed: Attending Dr: Ordering Provider/Ordering MD: Carlota Arriaga MD Date of Service: 08/28/21 Procedure(s): XR chest 1V portable [id number] Accession Number(s): [id number] Report Number: [id number] PROCEDURE INFORMATION: Exam: XR Chest Exam date and time: 08/28/2021 7:33 PM Age: 56 years old Clinical indication: Other: Dizzy; Additional info: Weakness TECHNIQUE: Imaging protocol: Radiologic exam of the chest. Views: 1 view. COMPARISON: CR XR chest 1V portable [id number] 02/08/2021 7:11 PM FINDINGS: Lungs: Unremarkable. No consolidation. Pleural spaces: Unremarkable. No pleural effusion. No pneumothorax. Heart/Mediastinum: Unremarkable. No cardiomegaly. Bones/joints: Unremarkable. XR/XR chest 1V portable [id number] IMPRESSION: No acute findings. ? Dictated By: Eugenio Núñez MD Signed By: Eugenio Núñez MD Signed Date/Time: 08/28/212016 DD/ [address] [employer] [address] [address] Scan Report Signed Patient: Ben Nielsen Unit #: [id number] : 1965 Age/Sex: 56 / M ADM Date: 08/28/21 Loc: ER Room/Bed: Attending Dr: Ordering Provider/Ordering MD: Terell Vines MD Date of Service: 08/28/21 Procedure(s): CT angio headneck* [id number] Accession Number(s): [id number] Report Number: [id number] PROCEDURE INFORMATION: Exam: CTA Head With Contrast, Arteriography Exam date and time: 08/28/2021 10:14 PM Age: 56 years old Clinical indication: Pain; Headache; Additional info: Neck pain TECHNIQUE: Imaging protocol: Computed tomographic angiography of the head with contrast. Exam focused on the arteries. 3D rendering (Not supervised by radiologist): MIP and/or 3D reconstructed images were created by the technologist. Radiation optimization: All CT scans at this facility use at least one of these dose optimization techniques: automated exposure control; mA and/or kV adjustment per patient size (includes targeted exams where dose is matched to clinical indication); or iterative reconstruction. Contrast material: OMNI 350; Contrast volume: 89 ml; Contrast route: INTRAVENOUS (IV);? COMPARISON: CT angio headneck* [id number] 02/08/2021 6:57 PM RADIATION DOSE METRICS: Total DLP (mGy-cm): 2010.81 FINDINGS: ANTERIOR CIRCULATION: Right internal carotid artery: Unremarkable. Intracranial segment is patent with no significant stenosis. No aneurysm. Right middle cerebral artery: Unremarkable. No occlusion or significant stenosis. No aneurysm.? Right anterior cerebral artery: Unremarkable. No occlusion or significant stenosis. No aneurysm.? Left internal carotid artery: Unremarkable. Intracranial segment is patent with no significant stenosis. No aneurysm. Left middle cerebral artery: Unremarkable. No occlusion or significant stenosis. No aneurysm.? Left anterior cerebral artery: Unremarkable. No occlusion or significant stenosis. No aneurysm.? POSTERIOR CIRCULATION: Right vertebral artery: Unremarkable. No occlusion or significant stenosis. No aneurysm.? Left vertebral artery: The left vertebral artery continues as the basilar artery. Basilar artery: See Left vertebral artery finding. Right posterior cerebral artery: origin of the right posterior cerebral artery. Left posterior cerebral artery: origin of the left posterior cerebral artery. Brain: No definite mass, mass effect, or midline shift. Cerebral ventricles: No ventriculomegaly. Bones/joints: Unremarkable. No acute fracture. Soft tissues: Unremarkable. Other findings: The right the vertebral artery ends in PICA. PROCEDURE INFORMATION: Exam: CTA Neck With Contrast Exam date and time: 08/28/2021 10:14 PM Age: 56 years old Clinical indication: Pain; Headache; Additional info: Neck pain TECHNIQUE: Imaging protocol: Computed tomographic angiography of the neck with contrast. 3D rendering (Not supervised by radiologist): MIP and/or 3D reconstructed images were created by the technologist. Radiation optimization: All CT scans at this facility use at least one of these dose optimization techniques: automated exposure control; mA and/or kV adjustment per patient size (includes targeted exams where dose is matched to clinical indication); or iterative reconstruction. Contrast material: OMNI 350; Contrast volume: 89 ml; Contrast route: INTRAVENOUS (IV);? COMPARISON: CT angio headneck* [id number] 02/08/2021 6:57 PM RADIATION DOSE METRICS: Total DLP (mGy-cm): 2010.81 FINDINGS: Right common carotid artery: No stenosis. No dissection or occlusion. Right internal carotid artery: No stenosis of the extracranial segment. No dissection or occlusion. Right external carotid artery: No occlusion or stenosis of the origin.? Left common carotid artery: No stenosis. No dissection or occlusion. Left internal carotid artery: No stenosis of the extracranial segment. No dissection or occlusion. Left external carotid artery: No occlusion or stenosis of the origin.? Right vertebral artery: No stenosis. No dissection or occlusion. Left vertebral artery: No stenosis. No dissection or occlusion. Soft tissues: Normal. No significant soft tissue swelling. Bones/joints: Laminectomy of C3, C4, C5 and C6. Posterior spinal fixation of C3 through C6. Anterior spinal fixation of C3 and C4 vertebra. CT/CT angio headneck* [id number] IMPRESSION: No significant stenosis or occlusion of the intracranial arteries. ? IMPRESSION: No significant stenosis or occlusion of the neck arteries. REFERENCES: NASCET CRITERIA. The degree of internal carotid artery stenosis is based on NASCET criteria. Normal is no stenosis. Mild is less than 50% stenosis. Moderate is 50-69% stenosis. Severe is 70% to 99% stenosis. Total occlusion is no detectable patent lumen. ? Dictated By: Fernie Paredes MD Signed By: Fernie Paredes MD Signed Date/Time: 08/28/212301 DD/ 13 Discharge Plan Discharge Patient Disposition: Home Clinical Impression: Generalized weakness, Amnesia, Confusion, Chest pressure, Fatigue Condition: Stable Prescriptions: No Action aspirin [Adult Low Dose Aspirin] 81 mg tablet,delayed release (DR/EC) 81 mg PO BID 0RF furosemide 40 mg tablet 40 mg PO BID PRN (Reason: weight gain) Qty: 180 3RF isosorbide mononitrate 30 mg tablet extended release 24 hr 15 mg PO BID Qty: 90 3RF metoprolol tartrate 25 mg tablet 25 mg PO BID@0800,2100 Qty: 180 3RF nitroglycerin 0.4 mg tablet, sublingual 0.4 mg SUBLINGUAL ONCE PRN (Reason: Chest Pain) Qty: 25 3RF potassium chloride 20 mEq tablet extended release 20 meq PO DAILY@0800 Qty: 90 3RF pantoprazole [Protonix] 40 mg tablet,delayed release (DR/EC) 40 mg PO DAILY Qty: 90 1RF melatonin 5 mg tablet 5 mg PO BEDTIME PRN (Reason: sleep) 0RF albuterol sulfate 90 mcg/actuation HFA aerosol inhaler 2 inh INHALATION Q4H PRN (Reason: shortness of breath or wheezing) Qty: 8.5 1RF Rx Instructions: 340 B medications quetiapine [Seroquel] 25 mg tablet 25 mg PO DAILY PRN (Reason: irritabilty/agitation/anxiety) Qty: 30 3RF Rx Instructions: May take half to one tablet daily as needed for irritabilty/agitation/anxiety (DME) CPAP supplies See Rx Instructions .Route .MEDSUPPLY Qty: 1 0RF Rx Instructions: Mask, tubing, filters. (DME) blood-glucose meter [OneTouch Ultra2 Meter] [facility] [place] See Rx Instructions .Route Qty: 1 0RF Rx Instructions: to use to check blood sugar once daily (DME) OneTouch Ultra Test Strip See Rx Instructions .Route Qty: 100 3RF Rx Instructions: to check blood sugar once daily in onetouch meter supply simvastatin 80 mg tablet 80 mg PO DAILY Qty: 90 1RF Seroquel 50 mg tablet 50 mg PO .bedtime Qty: 90 2RF Rx Instructions: Take one tablet at bedtime gabapentin 400 mg capsule 800 mg PO TID 90 Days Qty: 540 0RF bupivacaine (PF) 0.25 % (2.5 mg/mL) solution 1 ml intra-articular ONCE Qty: 1 0RF amoxicillin-pot clavulanate 875-125 mg tablet 1 tab PO BID 10 Days Qty: 20 0RF tizanidine 4 mg tablet 4 mg PO TID PRN (Reason: muscle spasticity) Qty: 90 2RF diazepam 10 mg tablet 10 mg PO ONCE PRN (Reason: anxiety) Qty: 2 0RF Rx Instructions: Take 1 hour prior to each procedure. (DME) AUTO - TITRATING CPAP 6-10CM See Rx Instructions .Route .MEDSUPPLY Qty: 1 0RF Rx Instructions: As directed (DME) back [facility] S[facility] See [facility] Instructions .Route Qty: 1 0RF Rx Instructions: As directed (DME) [facility] See Rx Instructions .ROUTE .MEDSUPPLY Qty: 1 0RF Rx Instructions: As directed fenofibrate nanocrystallized [Tricor] 145 mg tablet 145 mg PO DAILY 90 Days Qty: 90 1RF Jardiance 25 mg tablet 25 mg PO DAILY 90 Days Qty: 90 1RF levothyroxine 112 mcg tablet 112 mcg PO DAILY Qty: 90 1RF Discharge Orders: Discharge ED (Routine); Ordered 08/28/21 Ordered By: Terell Vines Referrals: Qi Muhammad DO [Primary Care Provider] - Discharge Diet: Advance as tolerated Discharge Activity: Increase activity as tolerated Patient Instructions: Chest Pain (ED), Transient Global Amnesia (ED) Activity Restrictions/Additional Instructions: Come back to the emergency room if your chest pain worsens, have any fever or chills, worsening shortness of breath, worsening exertional lightheadedness, or any new or concerning complaints. Come back to the emergency room if any weakness in your arms or legs, if you have any facial droop, double vision, visual blindness, visual field deficits, balance problem, inability to walk, language difficulties or any new or concerning complaints. Our leather case finisher will have you follow-up with Dr. Reyes in the next few days. You would be expected to have a phone call with our leather case finisher who will put you on the schedule. You can expect a call from us in the next 2-3 days. If you don't hear from us, call us back in the emergency room at [phone]. Come back if you have any new or concerning issues Coding Level of Care Code ED Wharf Laborer for Chg Fwd Exam Comprehensive
--- NOTE | 2021-08-28 20:48 | ECG_ITS ---
[facility] Test Date: 2021-08-28 Pat Name: Ben Nielsen Department: Room: Gender: Male [employer]: : 1965 Requested By: Terell Vines Order Number: [id number] Knutson MD: Susana Villasenor M.D. Measurements Intervals Rock Rate: 52 P: 44 MO: 170 QRS: 40 QRSD: 96 T: 30 QT: 426 QTc: 396 Interpretive Statements SINUS BRADYCARDIA Compared to ECG 02/08/2021 20:04:56 Sinus rhythm no longer present Electronically Signed On 08-28-2021 21:15:53 CDT by Susana Villasenor M.D. [id number]
[2021-08-28 21:14] LABS: Troponin(5th) Baseline 9 ng/L (0-15)
[2021-08-28 21:36] LABS: Troponin 5 2HR 8.45 ng/L (0-15)
[2021-08-28 21:41] LABS: Troponin 5 2HR Delta -0.55 ABS# (0-10)
[2021-08-28] MEDS: iohexol 350 mg/mL 100 mL Btl IV (22:29)
[2021-08-28 23:32] VITALS: BP 162/89; PULSE 55; RESP 18; O2SAT 97
--- NOTE | 2021-09-01 11:57 | DCPLANNER ---
Addendum entered by Nataly Wick 10/02/21 10:22: Patient had a follow up appointment scheduled for 09.08.[address] Chen at [facility] - patient did attend appointment. Addendum entered by Nataly Wick 09/22/21 16:33: Patient had a follow up appointment scheduled for 09.08.[address] Chen at [facility] - patient did attend appointment. Original Note: ticket manager had message to schedule a follow up appointment for patient with cardiology. ticket manager sent patients information to the front office staff at [facility]. Patients information will be printed and reviewed. Clinic will call patient with appointment information.
== END 2021-08-28 23:33 | disposition home or self-care (01) ==
PROVIDERS: Emergency Medicine; Emergency Provider Emergency Medicine; PCP Family Medicine
DX: R07.89 Other chest pain (principal); R53.1 Weakness; R41.3 Other amnesia; R41.0 Disorientation, unspecified; R53.83 Other fatigue; Z79.82 Long term (current) use of aspirin; I11.0 Hypertensive heart disease with heart failure; I50.9 Heart failure, unspecified; Z86.73 Personal history of transient ischemic attack (TIA), and cerebral infarction without residual deficits; I25.2 Old myocardial infarction; F17.220 Nicotine dependence, chewing tobacco, uncomplicated
CPT/HCPCS: 70450; 70496; 70498; 71045; 80053; 84484; 85025; 93005; 99285; Q9967

== ENCOUNTER → 2021-09-08 08:48 | Outpatient (BNVA) | payer MEDICARE, MEDICAID, SELFPAY | PROVIDERS: PCP Family Medicine; Visit Provider Internal Medicine Cardiovascular Disease | DX: R07.89 Other chest pain (principal); E78.1 Pure hyperglyceridemia; I11.0 Hypertensive heart disease with heart failure; I50.32 Chronic diastolic (congestive) heart failure; E11.9 Type 2 diabetes mellitus without complications; Z79.899 Other long term (current) drug therapy; G47.33 Obstructive sleep apnea (adult) (pediatric); M47.22 Other spondylosis with radiculopathy, cervical region; F33.1 Major depressive disorder, recurrent, moderate; F41.8 Other specified anxiety disorders; F45.1 Undifferentiated somatoform disorder; F17.220 Nicotine dependence, chewing tobacco, uncomplicated; Z86.73 Personal history of transient ischemic attack (TIA), and cerebral infarction without residual deficits; Z79.84 Long term (current) use of oral hypoglycemic drugs | CPT/HCPCS: 99214 ==

== ENCOUNTER → 2021-09-13 10:43 | Outpatient (BNVA) | payer MEDICARE, MEDICAID, SELFPAY | PROVIDERS: PCP Family Medicine; Visit Provider Family Medicine | DX: E11.9 Type 2 diabetes mellitus without complications (principal) | CPT/HCPCS: 80053; 83036 ==

== ENCOUNTER 2021-10-13 08:45 | Outpatient (CLI) | payer MEDICARE, MEDICAID, SELFPAY ==
--- NOTE | 2021-10-13 | ECG_ITS ---
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 Interpretive Statements NAME OF STUDY: LEXISCAN SESTAMIBI STRESS TEST INDICATION: [Chest Pain] Procedure: At the baseline, the blood pressure was 156/71 mmHg with a heart rate of 56 bpm. The electrocardiogram showed normal sinus bradycardia, normal axis with normal ST and T's. The Lexiscan was infused over a period of 20 seconds. A total of 0.4 mg of Lexiscan was infused. The stress phase was continued for a total of 5 minutes. Heart rate was at the end of stress phase was 75 bpm and a blood pressure of 156/81mmHg. The EKG at the peak infusion revealed since normal sinus rhythm with no significant ST-T wave changes. Sestamibi was injected 20 seconds after the Lexiscan infusion. Blood pressure at the end of recovery phase was 141/79 mmHg with a heart rate of 79bpm. Conclusion: 1. Normal EKG response to Lexiscan infusion 2. No Lexiscan induced chest pain or cardiac arrhythmia. 3. Normal blood pressure and heart rate response. 4. Sestamibi/sestamibi perfusion scan pending; see separate report. Electronically Signed On 10-30-2021 0:06:51 CDT by Eduardo Wallace M.D. [id number]
[2021-10-13 10:03] VITALS: BMI 35.4
--- NOTE | 2021-10-13 10:15 | NMCV_ITS ---
NM souleymane perf SPECT r/s* [id number] Ben Nielsen Age: 56 Gender: M : 1965 Exam Date: 10/13/2021 10:14 Ordering Phys: Berny Chen MD ([email or web address]) Technologist: LEXIE Humphrey Exam Location: [facility] Indications: Chest pain, SOB STRESS TEST Please [facility] IMAGE PROTOCOL Rest/Stress 1 Lexiscan Day Radiopharmaceutical Dose (mCi) Administration Site Administered by Rest: Tc-99m 10.6 IV LEXIE Humphrey Sestamibi Stress:Tc-99m 32.6 IV LEXIE Humphrey Sestamicarlos Rest: 13-Oct-2021 60 Discovery 630 Stress: 13-Oct-2021 30 Discovery 630 0.4mg Lexiscan. Supine position only as patient was unable to lay prone. SPECT RESULTS Technical Quality: Excellent Raw Data Analysis: Normal Image Corrections: No attenuation or motion correction applied Summed Stress Score: 0 Summed Rest Score: 0 Summed Difference Score: 0 PERFUSION FINDINGS SPECT images demonstrate homogeneous tracer distribution throughout the myocardium. FUNCTIONAL RESULTS (calculated via Gated SPECT) Stress Image LV EF (%): 67 Stress EDV (mL):140 TID: 1.18 Stress ESV (mL):46 FUNCTIONAL FINDINGS: There is normal left ventricular systolic function. IMPRESSIONS 1. Normal myocardial perfusion imaging with no evidence of ischemia 2. LV systolic function is normal Eduardo Wallace MD (Electronically Signed) Final Date: 16 October 2021 10:09 S
[2021-10-13] MEDS: regadenoson 0.4 Mg/5 ml Syringe IVP (11:14)
[2021-10-13 11:19] VITALS: BP 158/65; PULSE 77
== END 2021-10-13 08:46 | disposition home or self-care (01) ==
LOC: CDL 08:46
PROVIDERS: PCP Family Medicine; Visit Provider Internal Medicine Cardiovascular Disease
DX: R07.9 Chest pain, unspecified (principal); R06.02 Shortness of breath
CPT/HCPCS: 78452; 93017; A9500; J2785

== ENCOUNTER → 2021-11-01 09:09 | Outpatient (BNVA) | payer MEDICARE, MEDICAID, SELFPAY | PROVIDERS: PCP Family Medicine; Visit Provider Anesthesiology Pain Medicine | DX: G89.29 Other chronic pain; M54.50 Low back pain, unspecified; M47.22 Other spondylosis with radiculopathy, cervical region; M96.1 Postlaminectomy syndrome, not elsewhere classified; G56.92 Unspecified mononeuropathy of left upper limb; Z87.891 Personal history of nicotine dependence; Z79.899 Other long term (current) drug therapy | CPT/HCPCS: 99214 ==

== ENCOUNTER 2021-11-06 12:26 | Outpatient (CLI) | payer MEDICARE, MEDICAID, SELFPAY ==
[2021-11-06 12:48] LABS: Basophils % 0.5 %; Eosinophils # 0.2 10^3/uL (0.0-0.8); Eosinophils % 2.8 %; Hematocrit 46.3 % (42.0-52.0); Hemoglobin 15.3 g/dL (11.7-16.6); Lymphocytes # 1.7 10^3/uL (0.8-4.8); Lymphocytes % 20.9 %; Mean Corpuscular Hemoglobin 28.1 pg (28.0-34.0); Mean Platelet Volume 10.5 fL (7.4-10.4); Monocytes # 0.9 10^3/uL (0.2-0.9); Monocytes % 10.9 %; Neutrophils # 5.39 10^3/uL (1.8-7.7); Neutrophils % 64.7 %; Nucleated Red Blood Cells % 0 %; Platelet Count 311 10^3/cmm (130-400); Red Blood Count 5.45 10^6/uL (4.1-5.3); Red Cell Distribution Width 13.8 % (12.1-15.1); White Blood Count 8.3 10^3/uL (4.0-10.0)
[2021-11-06 12:59] LABS: INR 0.99 (0.83-1.21); Prothrombin Time (Patient) 13.4 Seconds (12.0-15.1)
[2021-11-06 13:07] LABS: Anion Gap 15.2 (5-19); Blood Urea Nitrogen 15 mg/dL (6-20); Calcium 9.1 mg/dL (8.5-10.5); Carbon Dioxide 25 mmol/L (22-29); Chloride 100 mmol/L (98-107); Glucose 111 mg/dL (65-115); Osmolality Calculated 284 mOsm/kg (285-295); Potassium 4.2 mmol/L (3.5-5.1); Sodium 136 mmol/L (136-145)
== END 2021-11-06 12:27 | disposition home or self-care (01) ==
LOC: LAB 12:29
PROVIDERS: PCP Family Medicine; Visit Provider Internal Medicine Cardiovascular Disease
DX: I20.0 Unstable angina (principal); R07.89 Other chest pain
CPT/HCPCS: 36415; 80048; 85025; 85610

== ENCOUNTER 2021-11-07 05:56 | Outpatient (CLI) | payer MEDICARE, MEDICAID, SELFPAY ==
[2021-11-07] VITALS (11 sets, daily range): BP systolic 100–134; BP diastolic 55–85; PULSE 51–70; RESP 12–22; TEMP 36.7; O2SAT 94–98; BMI 34.5
--- NOTE | 2021-11-07 06:00 | XACV_ITS ---
Exam Room: 2 Ht: 175 cm Wt: 106 kg BSA: 2.31 m2 Gender: Male : 1965 Any Known Allergies: Other Exam Priority: Routine Procedure(s): Procedure Description: Diagnostic procedure Procedure Description: Left Heart Catheterization Procedure Description: Left ventriculography Procedure Description: Coronary Angiography Diagnostic Cath Status: Elective Diagnostic Findings * Patient is 56 years old and has had longstanding intermittent chest pain. Several years ago angiography for the same symptoms was negative. I saw him 2 months ago in the office when he was complaining of daily chest pain requiring nitroglycerin. Stress testing prior to previous angiogram suggested a minor perfusion deficit in the distribution of the right coronary artery. This time I decided to repeat his stress test. It was completely negative. Despite that he continues to have daily chest pain. He is taking at least 8 nitroglycerin a day. He was scheduled for coronary angiography. * Coronary angiography reveals right coronary artery dominance. The left main coronary artery is normal. The LAD is normal. There is a proximal diagonal branch which has a 40 to 50% stenosis in the ostium. The circumflex is normal. Both the LAD and circumflex are relatively small vessels. The right coronary artery is a very large dominant artery and is normal. Conclusions 1. Normal coronary arteries. Recommendations * Find noncardiac cause for chest pain. Interventional RX Recommendation: none Diagnostic RX Recommendation: none Anticoagulation: Heparin Ventriculography Ejection Fraction: 65.0 % Pressures Phase:Rest AO : 122 / 69 ( 93 ) @ 8:32:00 AM 121 / 66 ( 92 ) @ 8:32:00 AM LV : 131 / -5 / 14 @ 8:31:00 AM 119 / -3 / 14 @ 8:32:00 AM 120 / -3 / 14 @ 8:32:00 AM Valves Phase:DefaultPhase AV : 0.0 @ 7:39:09 AM 0.0 @ 7:39:09 AM AV Mean Gradient: 0.0 @ 7:39:09 AM Clinical Evaluation EBL: 5mL-10mL Procedural Details Procedure Consent Obtained. Pre-Procedure Time Out. Identified patient by full name and date of as verbalized by the patient/guarantor. Does the consent match the physician's order: Yes. Accurate & Complete Informed Consent: Yes. Inpatient/Outpatient History & Physical on Chart: Yes. If H&P is completed, is and addenduem needed: Yes; If yes, is the addendum complete: Yes. Visualize and Verify Site with Patient/Guarantor: N/A. Relevant Radiology Images available: N/A. Pre-op teaching completed and patient verbalized understanding. The risks, benefits, and alternatives of sedation and/or procedure were discussed by physician. The patient agrees to continue. Procedure started. [facility] Clinical Fraility Score: 3: Managing Well. 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 Chest Pain Symptom Assessment: Typical Angina Symptoms. Correct patient, site and procedure confirmed by cath team. Current diagnosis: Chest Pain. PERRLA. Strong, equal hand sex worker or escort bilaterally. Lungs clear x 5 lobes. IV Site on Arrival: 20 gauge in the right anticubital. IV Fluids: 0.9% NaCl at KVO. 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 Pre Procedural Pulses: right radial was 2+. Pre Procedural Pulses: right dorsalis pedis was Doppled. Oxygen started at 2liters/min via nasal canula. right groin was prepped with chloroprep then draped in the usual sterile fashion. right radial was prepped with chloroprep then draped in the usual sterile fashion. Physician notified. Baseline sample Acquired. HR: 51 BPM. Physician arrived. Physician scrubbed in. Immediate Pre-Procedure Time Out. Correct Patient: Yes; Correct Procedure: Yes; Correct Site: Yes; Correct Patient Position: Yes; Correct Supplies: Yes; Dried Flammable Prep: Yes; Blood Products Available: N/A;. Lidocaine 1% infiltrated to the right radial. Arterial access obtained. Admit Source: Out Patient. A 6 danish TIG catheter in over wire. Multiple views taken of left coronary artery. Catheter redirected to the RCA. Multiple views taken of right coronary artery. Catheter removed over the standard wire. A 5 danish Angled Pig catheter in over wire. EDP Sample taken: LV 131/-6,14; HR: 64 BPM; SpO2: 98%. LV gram performed in HERNANDEZ @ 10 mL/second for a total of 30 mL. EDP Sample taken: LV 119/-4,14; HR: 60 BPM; SpO2: 97%. Pullback taken: LV 120/-4,14; AO 122/69(93); Mean: 0mmHg, Peak to Peak: 0mmHg, SEP: 5sec/min; HR: 57 BPM; SpO2: 96%. A TR Band was successful obtaining hemostatsis at the Right Radial artery insertion site. Physician review of cine films. Patient's family updated. Post Procedure: Pulses reassessed and unchanged. PERRLA. Strong, equal hand sex worker or escort bilaterally. No VTE prophylaxis required. Medication's Wasted: Lidocaine 1% = 2 mL. Medication's Wasted: Nitro = 49.8 mg. Medication's Wasted: Heparin = 1000 u. Medication's Wasted: Other = Fentanyl 50 mcg. Total IV fluids: 45 mL. Post-op diagnosis: Chest Pain. Complications: none. Estimated blood loss: 5mL-10mL. Responsiveness - Normal response to verbal stimuli; alert and oriented, PERRLA. Airway - Unaffected, no intervention required; spontaneous ventilation. Circulation: W/N/L, pulses unchanged. Nausea/Vomiting: No. Procedure completed. Patient transferred by wheelchair to 1st floor. Catheter removed over the standard wire. Vital chart was stopped. Access Site Site: Right Radial artery Sheath Size: 6 Fr Hemostasis Method: TR Band Hemostasis Success: Successful Procedure Medications Start: 7:09 AM Stop: 7:09 AM Medication: 0.9% Saline Amount: 75 ml/hr Route: I.V. drip Start: 7:11 AM Stop: 7:11 AM Medication: Fentanyl Amount: 50 mcg Route: I.V. Start: 7:20 AM Stop: 7:20 AM Medication: Versed Amount: 1 mg Route: I.V. Start: 7:23 AM Stop: 7:23 AM Medication: Nitrogylcerin Amount: 200 mcg Route: I.A. Start: 7:24 AM Stop: 7:24 AM Medication: Versed Amount: 1 mg Route: I.V. Start: 7:26 AM Stop: 7: AM Medication: Heparin Amount: 5000 units Route: I.V. I, the attending physician, have reviewed and verified all procedure medications. Yes, all medications given per verbal order History/Risk Factors Hypertension: Yes Dyslipidemia: Yes Peripheral Arterial Disease (PAD): No Myocardial Infarction (MO): No Obesity: Yes Renal Disease: No Tobacco Use: Current/Recent(w/in 1 year) Prior Interventions PCI: No CABG: No Valve Surgery: No Report Signatures Finalized by Dr. Berny Chen MD on 11/07/2021 07:43 AM
[2021-11-07] MEDS: diphenhydrAMINE 50 mg Capsule PO (06:44)
--- NOTE | 2021-11-07 07:04 | PM.HP ---
Providers/Chief Complaint Admitting Physician: izabella Primary Care Provider: Qi Muhammad DO Chief Complaint: R07.9 History of Present Illness Ben Nielsen is a 56 year old male who is coming in today for purposes of elective coronary angiography. I saw him about 2 months ago in the office when he called and asked to be seen urgently because of chest discomfort. He has no known history of coronary artery disease. He previously was seen by Dr. Lewis and angiography several years ago was negative. He has chronic pain which overshadows all of his symptoms. He does see the individuals in the pain management clinic. He has had several surgeries involving his neck after an accident at work. He has a somatization disorder and over dramatization of the pain. He states that he has had multiple TIAs. He has dyslipidemia and hypertension. He was in the emergency room in August with multiple symptoms including the perception of a low heart rate, chest pain, dizziness, disorientation among others. He had multiple radiologic studies all of which were negative. When I saw him in the clinic he was continuing to complain of chest pressure. He describes it as a sharp corkscrew which was jammed into his chest and twisted. It was happening 8 or 10 times a day and had been going on for months. He was frustrated that all the tests came back negative. A stress test in 2020 showed the possibility of some small amounts of ischemia in the distribution of the right coronary artery. I decided to repeat the stress test. That occurred shortly after the visit in September and was read as completely normal. This was performed on October 13. Apparently since then he continues to have chest pain every day. He states that he is eating 6 or 8 nitros a day. He is frustrated. He told me this morning that he desperately wants me to find something wrong with his heart. He has tingling and numbness in his arms. He was scheduled for this procedure because of the continued symptoms. Review of Systems Narrative: His review of systems is diffusely positive in nearly every distribution. Medications/Allergies Home Medications Medication Instructions Recorded Confirmed Last Taken Type AUTO - TITRATING CPAP 6-10CM #1 ea 08/23/20 11/06/21 Unknown Rx CPAP supplies #1 ea 11/29/20 11/06/21 Unknown Rx blood sugar diagnostic (OneTouch #100 ea 01/26/21 11/06/21 Unknown Rx Ultra Test) blood-glucose meter (OneTouch #1 ea 01/26/21 11/06/21 Unknown Rx Ultra2 Meter) albuterol sulfate 90 mcg/actuation 2 inh inhalation Q4H PRN shortness 03/24/21 11/06/21 Unknown Rx aerosol inhaler of breath or wheezing #8.5 grams aspirin 81 mg tablet,delayed 81 mg PO BID 04/06/21 11/06/21 Unknown History release (Adult Low Dose Aspirin) furosemide 40 mg tablet 40 mg PO BID PRN weight gain #180 04/06/21 11/06/21 Unknown Rx tabs isosorbide mononitrate 30 mg 15 mg PO BID #90 tabs 04/06/21 11/06/21 Unknown Rx tablet,extended release 24 hr metoprolol tartrate 25 mg tablet 25 mg PO BID@0800,2100 #180 tabs 04/06/21 11/06/21 Unknown Rx nitroglycerin 0.4 mg sublingual 0.4 mg sublingual ONCE PRN Chest 04/06/21 11/06/21 Unknown Rx tablet Pain #25 tabs potassium chloride 20 mEq 20 meq PO DAILY@0800 #90 tabs 04/06/21 11/06/21 Unknown Rx tablet,extended release back brace (Back Support S/M) #1 ea 05/15/21 11/06/21 Unknown Rx back brace #1 ea 05/30/21 11/06/21 Unknown Rx fenofibrate nanocrystallized 145 145 mg PO DAILY 90 days #90 tabs 06/27/21 11/06/21 Unknown Rx mg tablet (Tricor) pantoprazole 40 mg tablet,delayed 40 mg PO DAILY #90 tabs 06/27/21 11/06/21 Unknown Rx release (Protonix) empagliflozin 25 mg tablet 25 mg PO DAILY 90 days #90 tabs 07/04/21 11/06/21 Unknown Rx (Jardiance) levothyroxine 112 mcg tablet 112 mcg PO DAILY #90 tabs 07/04/21 11/06/21 Unknown Rx diazepam 10 mg tablet 10 mg PO ONCE PRN anxiety #2 tabs 08/17/21 11/06/21 Unknown Rx simvastatin 80 mg tablet 80 mg PO DAILY #90 tabs 09/13/21 11/06/21 Unknown Rx melatonin 5 mg tablet 5 mg PO BEDTIME sleep 10/20/21 11/06/21 Unknown History quetiapine 25 mg tablet (Seroquel) 25 mg PO DAILY PRN 10/20/21 11/06/21 Unknown Rx irritabilty/agitation/anxiety #30 tabs quetiapine 50 mg tablet (Seroquel) 50 mg PO .bedtime #90 tabs 10/20/21 11/06/21 Unknown Rx tizanidine 4 mg tablet 4 mg PO TID muscle spasticity 10/20/21 11/06/21 Unknown History gabapentin 400 mg capsule 800 mg PO TID pain 90 days #540 11/01/21 11/06/21 Unknown Rx caps topiramate 50 mg tablet 50 mg PO BID pain #60 tabs 11/01/21 11/06/21 Unknown Rx Allergies Allergy/AdvReac Type Severity Reaction Status Date / Time pregabalin [From Lyrica] Allergy Intermediate ADR-Halluci Verified 11/01/21 09:18 nating pineapple Allergy Unknown ALGY-Anaphy Verified 11/01/21 09:18 laxis levothyroxine sodium AdvReac Intermediate Unknown Verified 11/01/21 09:18 [From Euthyrox] PFSH Acute PFSH: Medical History Abnormal stress test Acute bronchitis Anxiety with somatic features Bright red rectal bleeding Chest pain Chronic low back pain Chronic neck pain Congestive heart failure COVID-19 Diastolic heart failure Dizziness Essential (primary) hypertension History of colon polyps History of CVA (cerebrovascular accident) 2005 --left-sided weakness History of DE (myocardial infarction) History of TIA (transient ischemic attack) Hypertriglyceridemia Hypothyroidism Internal hemorrhoids Left ventricular hypertrophy Major depressive disorder, recurrent, moderate MRSA (methicillin resistant Staphylococcus aureus) Nephrolithiasis Persistent moderate somatic symptom disorder with predominant pain Psychiatric care Surgical History H/O esophagogastroduodenoscopy (05/10/20) H/O neck surgery x 5 ( some of those were for a postop MRSA infection ) History of colonoscopy 12/2014 --small tubular adenoma, limited diverticulosis 02/2018 --small internal hemorrhoids S/P appendectomy S/P cholecystectomy S/P hernia repair ventral with mesh x 2 Family History Mother CHF (congestive heart failure) Thyroid disease Sister Thyroid disease Father A-fib Brother Heart disease HX STENTS Other CAD (coronary artery disease) Diabetes Social History Smoking and tobacco status: former smoker Second hand smoke exposure: Yes Alcohol intake: never Lives independently: Yes Household members: spouse Marital status: Current occupational status: disabled History of recent travel: No Current gender identity: Male Vitals/I&O/Wt Last Vital Signs Temp 98.1 F 11/07/21 06:00 Pulse 59 L 11/07/21 06:00 Resp 16 11/07/21 06:00 BP 132/80 11/07/21 06:00 Pulse Ox 98 11/07/21 06:00 O2 Del Method 11/07/21 06:00 Weight last 48 hrs Weight 234 lb Physical Exam Narrative: GENERAL: Awake alert and comfortable HEENT: Exam within normal limits. NECK: Supple without jugular vein distention. The carotid upstroke is normal without bruits. BACK: Exam normal. LUNGS: Clear. HEART: Regular rate and rhythm. ABDOMEN: Benign without organomegaly or tenderness. EXTREMITIES: No edema. NEUROLOGIC: Exam normal. SKIN: Unremarkable. A&P Assessment and plan (1) Chest pain: Status: Acute (2) Hypertriglyceridemia: Status: Chronic (3) Diastolic heart failure: Status: Acute Qualifiers: Heart failure chronicity: chronic Qualified Code(s): I50.32 - Chronic diastolic (congestive) heart failure (4) Type 2 diabetes mellitus, without long-term current use of insulin: Status: Acute Qualifiers: Diabetes mellitus complication status: without complication Qualified Code(s): E11.9 - Type 2 diabetes mellitus without complications (5) Essential (primary) hypertension: Status: Chronic (6) Obstructive sleep apnea: Status: Acute (7) Anxiety with somatic features: Status: Chronic Plan The only thing that will answer the question form is coronary angiography. We will complete this this morning. I discussed the risks and benefits with the patient and his . Attestations Medical Necessity Statement*: Outpatient coronary angiography. 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
[2021-11-07] MEDS: sodium chloride 0.9% 1,000 ML 100 ML IV (08:25)
--- NOTE | 2021-11-07 08:33 | P.DS_ITS ---
Discharge Providers Date of Admission: November 07, 2021 Date of Discharge: November 07, 2021 Attending Provider at Admission: izabella Attending Provider at Discharge: Berny Chen MD Primary Care Provider: Qi Muhammad DO Diagnoses at Discharge Discharge Diagnosis (1) Chest pain: Status: Acute (2) Hypertriglyceridemia: Status: Chronic (3) Diastolic heart failure: Status: Acute Qualifiers: Heart failure chronicity: chronic Qualified Code(s): I50.32 - Chronic diastolic (congestive) heart failure (4) Type 2 diabetes mellitus, without long-term current use of insulin: Status: Acute Qualifiers: Diabetes mellitus complication status: without complication Qualified Code(s): E11.9 - Type 2 diabetes mellitus without complications (5) Essential (primary) hypertension: Status: Chronic (6) Obstructive sleep apnea: Status: Acute (7) Anxiety with somatic features: Status: Chronic Reason for Visit Reason for Visit: R07.9 Brief History: Patient has been having unrelenting chest pain for several months. Previously he had angiography as a result of this which was negative. I saw him in the office 2 months ago. I repeated the stress test which was negative. He continues to have chest pain taking at least 8 nitroglycerin per day. He was scheduled for coronary angiography because of this. Hospital Course Hospital Course His angiogram is essentially normal. He has a 50% narrowing of a small diagonal branch but otherwise he has completely normal coronary arteries and normal left ventricular function. The procedure was done from the right radial artery. There were no complications. Physical Exam Narrative: GENERAL: In general he looks and feels well HEENT: Exam within normal limits. NECK: Supple without jugular vein distention. The carotid upstroke is normal without bruits. BACK: Exam normal. LUNGS: Clear. HEART: Regular rate and rhythm. ABDOMEN: Benign without organomegaly or tenderness. EXTREMITIES: No edema. At the time of discharge the right radial artery area is flat, dry without bleeding or hematoma. NEUROLOGIC: Exam normal. SKIN: Unremarkable. 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 Vitals Last Vital Signs Temp 98.1 F 11/07/21 06:00 Pulse 54 L 11/07/21 07:50 Resp 13 11/07/21 07:50 BP 134/85 11/07/21 07:50 Pulse Ox 97 11/07/21 07:50 O2 Del Method 11/07/21 07:36 Discharge Plan Discharge Patient Disposition: Home Prescriptions: Continued aspirin [Adult Low Dose Aspirin] 81 mg tablet,delayed release (DR/EC) 81 mg PO BID furosemide 40 mg tablet 40 mg PO BID PRN (Reason: weight gain) Qty: 180 3RF metoprolol tartrate 25 mg tablet 25 mg PO BID@0800,2100 Qty: 180 3RF nitroglycerin 0.4 mg tablet, sublingual 0.4 mg SUBLINGUAL ONCE PRN (Reason: Chest Pain) Qty: 25 3RF potassium chloride 20 mEq tablet extended release 20 meq PO DAILY@0800 Qty: 90 3RF pantoprazole [Protonix] 40 mg tablet,delayed release (DR/EC) 40 mg PO DAILY Qty: 90 1RF melatonin 5 mg tablet 5 mg PO BEDTIME albuterol sulfate 90 mcg/actuation HFA aerosol inhaler 2 inh INHALATION Q4H PRN (Reason: shortness of breath or wheezing) Qty: 8.5 1RF Rx Instructions: 340 B medications (DME) CPAP supplies See Rx Instructions .Route .MEDSUPPLY Qty: 1 0RF Rx Instructions: Mask, tubing, filters. (DME) blood-glucose meter [OneTouch Ultra2 Meter] Misc See Rx Instructions .Route Qty: 1 0RF Rx Instructions: to use to check blood sugar once daily (DME) OneTouch Ultra Test Strip See Rx Instructions .Route Qty: 100 3RF Rx Instructions: to check blood sugar once daily in onetouch meter supply simvastatin 80 mg tablet 80 mg PO DAILY Qty: 90 1RF bupivacaine (PF) 0.25 % (2.5 mg/mL) solution 1 ml intra-articular ONCE Qty: 1 0RF tizanidine 4 mg tablet 4 mg PO TID Seroquel 50 mg tablet 50 mg PO .bedtime Qty: 90 2RF Rx Instructions: Take one tablet at bedtime quetiapine [Seroquel] 25 mg tablet 25 mg PO DAILY PRN (Reason: irritabilty/agitation/anxiety) Qty: 30 3RF Rx Instructions: Take half to one tablet daily as needed for irritability/agitation/anxiety topiramate 50 mg tablet 50 mg PO BID Qty: 60 0RF gabapentin 400 mg capsule 800 mg PO TID 90 Days Qty: 540 0RF diazepam 10 mg tablet 10 mg PO ONCE PRN (Reason: anxiety) Qty: 2 0RF Rx Instructions: Take 1 hour prior to each procedure. (DME) AUTO - TITRATING CPAP 6-10CM See Rx Instructions .Route .MEDSUPPLY Qty: 1 0RF Rx Instructions: As directed (DME) back brace [Back Support S/M] Misc See Rx Instructions .Route Qty: 1 0RF Rx Instructions: As directed (DME) back brace Misc See Rx Instructions .ROUTE .MEDSUPPLY Qty: 1 0RF Rx Instructions: As directed fenofibrate nanocrystallized [Tricor] 145 mg tablet 145 mg PO DAILY 90 Days Qty: 90 1RF Jardiance 25 mg tablet 25 mg PO DAILY 90 Days Qty: 90 1RF levothyroxine 112 mcg tablet 112 mcg PO DAILY Qty: 90 1RF Discontinued isosorbide mononitrate 30 mg tablet extended release 24 hr 15 mg PO BID Qty: 90 3RF Discharge Orders: Discharge Order (Routine); Ordered 11/07/21 Ordered By: Berny Chen Referrals: Galina Marsh FNP [Nurse Practitioner] - 7-10 days (Right radial artery check, chemistry panel) Diet: Diabetic Activity: Limit activity as instructed Activity Restrictions/Additional Instructions: No lifting over 5 pounds with the right arm for 2 days. Discharge Attestations Time Spent in Discharge Care*: greater than 30 min Status at Discharge: Cognitive status at discharge: cognitively intact , Behavioral status at discharge: cooperative , Quality Metrics Clinical Quality Measures [ No reported AMI, CVA or VTE this stay] Coding Level of Care Code Established Pt Acute Chg FW DC note Patient Type Established History Detailed Exam Detailed Medical Decision Making Moderate Complexity Diagnoses Chest pain R07.9 Hypertriglyceridemia E78.1 Diastolic heart failure I50.32 Heart failure chronicity: chronic Type 2 diabetes mellitus, without long-term current use of insulin E11.9 Diabetes mellitus complication status: without complication Essential (primary) hypertension I10 Obstructive sleep apnea G47.33 Anxiety with somatic features F41.8
--- NOTE | 2021-11-07 11:07 | PC.NURSE ---
dc'd pts piv and tele. dressing in place on r radial artery site. no s/s of bleeding, hematoma or discomfort. pt verbalized understanding of discharge instructions and follow up. no further questions. Dr Chen at bedside prior to discharge to review and answer all questions. pt left via wc to private vehicle.
== END 2021-11-07 11:12 | disposition home or self-care (01) ==
LOC: CCL 05:57 → CSU 08:13
PROVIDERS: PCP Family Medicine; Visit Provider Internal Medicine Cardiovascular Disease
DX: R07.89 Other chest pain (principal); E78.1 Pure hyperglyceridemia; I11.0 Hypertensive heart disease with heart failure; I50.32 Chronic diastolic (congestive) heart failure; E11.9 Type 2 diabetes mellitus without complications; G47.33 Obstructive sleep apnea (adult) (pediatric); F41.8 Other specified anxiety disorders; Z86.16 Personal history of COVID-19; Z86.73 Personal history of transient ischemic attack (TIA), and cerebral infarction without residual deficits; I25.2 Old myocardial infarction; E03.9 Hypothyroidism, unspecified; Z86.14 Personal history of Methicillin resistant Staphylococcus aureus infection; Z87.891 Personal history of nicotine dependence; E66.9 Obesity, unspecified; Z68.34 Body mass index [BMI] 34.0-34.9, adult
CPT/HCPCS: 93458; 96360; 99152; 99153; C1769; C1887; C1894; J1644; J2250; J3010; J3490; J7030; Q0163; Q9967

== ENCOUNTER → 2021-11-15 16:18 | Outpatient (BNVA) | payer MEDICARE, MEDICAID, SELFPAY | PROVIDERS: PCP Family Medicine; Visit Provider Nurse Practitioner Family | DX: R07.9 Chest pain, unspecified (principal); Z87.891 Personal history of nicotine dependence | CPT/HCPCS: 80048; 99214 ==

== ENCOUNTER → 2021-11-29 09:29 | Outpatient (BNVA) | payer MEDICARE, MEDICAID, SELFPAY | PROVIDERS: PCP Family Medicine; Visit Provider Anesthesiology Pain Medicine | DX: G89.29 Other chronic pain (principal); M47.22 Other spondylosis with radiculopathy, cervical region; M96.1 Postlaminectomy syndrome, not elsewhere classified; G56.92 Unspecified mononeuropathy of left upper limb; M25.512 Pain in left shoulder; Z87.891 Personal history of nicotine dependence; Z79.899 Other long term (current) drug therapy | CPT/HCPCS: 99214 ==

== ENCOUNTER → 2021-12-04 08:43 | Outpatient (BNVA) | payer MEDICARE, MEDICAID, OTHER, SELFPAY | PROVIDERS: PCP Family Medicine; Visit Provider Nurse Practitioner Psychiatric/Mental Health | DX: Z79.899 Other long term (current) drug therapy (principal) | CPT/HCPCS: 80061 ==

== ENCOUNTER → 2022-01-02 12:42 | Outpatient (BNVA) | payer MEDICARE, MEDICAID, OTHER, SELFPAY | PROVIDERS: PCP Family Medicine; Visit Provider Anesthesiology Pain Medicine | DX: G89.29 Other chronic pain (principal); M47.816 Spondylosis without myelopathy or radiculopathy, lumbar region; E11.9 Type 2 diabetes mellitus without complications; Z87.891 Personal history of nicotine dependence | CPT/HCPCS: 36416; 64635; 64636; 82962 ==

== ENCOUNTER → 2022-01-16 11:00 | Outpatient (BNVA) | payer MEDICARE, MEDICAID, OTHER, SELFPAY | PROVIDERS: PCP Family Medicine; Visit Provider Anesthesiology Pain Medicine | DX: G89.29 Other chronic pain (principal); M54.50 Low back pain, unspecified; M96.1 Postlaminectomy syndrome, not elsewhere classified; M47.22 Other spondylosis with radiculopathy, cervical region; Z79.899 Other long term (current) drug therapy; Z87.891 Personal history of nicotine dependence | CPT/HCPCS: 99214 ==

== ENCOUNTER → 2022-02-22 10:34 | Outpatient (BNVA) | payer MEDICARE, MEDICAID, SELFPAY | PROVIDERS: PCP Family Medicine; Visit Provider Anesthesiology Pain Medicine | DX: G89.29 Other chronic pain (principal); M54.50 Low back pain, unspecified; M96.1 Postlaminectomy syndrome, not elsewhere classified; M47.22 Other spondylosis with radiculopathy, cervical region; G56.92 Unspecified mononeuropathy of left upper limb; Z79.899 Other long term (current) drug therapy | CPT/HCPCS: 99214 ==

== ENCOUNTER → 2022-03-15 09:56 | Outpatient (BNVA) | payer MEDICARE, MEDICAID, SELFPAY | PROVIDERS: PCP Family Medicine; Visit Provider Nurse Practitioner Family | DX: I11.0 Hypertensive heart disease with heart failure (principal); I50.30 Unspecified diastolic (congestive) heart failure; I25.10 Atherosclerotic heart disease of native coronary artery without angina pectoris; Z87.891 Personal history of nicotine dependence; I25.2 Old myocardial infarction | CPT/HCPCS: 99214 ==

== ENCOUNTER → 2022-03-22 10:45 | Outpatient (BNVA) | payer MEDICARE, MEDICAID, SELFPAY | PROVIDERS: PCP Family Medicine; Visit Provider Anesthesiology Pain Medicine | DX: M54.16 Radiculopathy, lumbar region (principal); M47.896 Other spondylosis, lumbar region | CPT/HCPCS: 72110; 99214 ==

== ENCOUNTER → 2022-04-18 08:41 | Outpatient (BNVA) | payer MEDICARE, MEDICAID, SELFPAY | PROVIDERS: PCP Family Medicine; Visit Provider Anesthesiology Pain Medicine | DX: G89.29 Other chronic pain (principal); M47.22 Other spondylosis with radiculopathy, cervical region; G56.92 Unspecified mononeuropathy of left upper limb; M96.1 Postlaminectomy syndrome, not elsewhere classified; I25.10 Atherosclerotic heart disease of native coronary artery without angina pectoris; Z79.899 Other long term (current) drug therapy; M54.50 Low back pain, unspecified | CPT/HCPCS: 99214 ==

== ENCOUNTER 2022-04-25 11:20 | Outpatient (CLI) | payer MEDICARE, MEDICAID, SELFPAY ==
--- NOTE | 2022-04-25 11:45 | MR_ITS ---
WS: [id number] MRI LUMBAR SPINE NONCONTRAST TECHNIQUE: Sagittal T1, T2 and STIR imaging. Axial T1 and T2 imaging. CLINICAL INFORMATION: M54.16 - Radiculopathy, lumbar region COMPARISON: MRI October 07, 2019 FINDINGS: Mild lumbar curve. No acute compression. Endplate Schmorl's nodes L3-L4 and superior endplate L5-S1. No high-grade central canal stenosis. L1-L2: Mild annular bulging with slight narrowing of the subarticular recess bilaterally. Mild RIGHT foraminal narrowing. L2-L3: Mild annular bulging. Tiny RIGHT subarticular protrusion. Involution of the protrusion compare d to previous. Impingement on traversing RIGHT L3 nerve root. Moderate facet arthropathy. Mild RIGHT and no significant LEFT foraminal narrowing. L3-L4: Shallow central disc protrusion. Impingement traversing L4 nerve roots bilaterally. Moderate f acet arthropathy. RIGHT foraminal protrusion with moderate RIGHT foraminal narrowing. Mild LEFT jesus inal narrowing. Mild facet arthropathy. L4-L5: Mild annular bulging. Impingement traversing L5 nerve roots bilaterally. Moderate facet arthro seth. Mild LEFT and no significant RIGHT foraminal narrowing. L5-S1: Mild disc bulging with osteophytic ridging. Moderate facet arthropathy. Spinal canal and jesus en are patent. Visualized pelvic bony structures: Normal. Paravertebral soft tissues: Normal. MR/MR lumbar spine wo con* [id number] IMPRESSION: 1. Mild lumbar curve. No acute compression. No high-grade central canal stenos is. 2. Involution of the RIGHT subarticular protrusion L2-L3 compared to previous. Mild residual narrowing of the RIGHT subarticular recess with slight impingeme nt traversing RIGHT L3 nerve root has improved. Central canal stenosis has impr daylin. 3. No other significant changes compared to previous. 4. RIGHT foraminal narrowing slightly impinges the exiting RIGHT L2 nerve root . 5. Mild central canal stenosis L3-L4 with impingement on the traversing RIGHT L4 nerve root. RIGHT foraminal protrusion impinges the exiting L3 nerve root wi th moderate RIGHT foraminal narrowing. 6. Annular bulging L4-L5 impinges the traversing LEFT greater than RIGHT L5 ne rve roots in the subarticular recess. 7. Moderate facet arthropathy worse at LEFT L4-L5 and L5-S1.
== END 2022-04-25 11:21 | disposition home or self-care (01) ==
LOC: RAD 11:21
PROVIDERS: PCP Family Medicine; Visit Provider Anesthesiology Pain Medicine
DX: M54.16 Radiculopathy, lumbar region (principal)
CPT/HCPCS: 72148

== ENCOUNTER → 2022-05-01 13:06 | Outpatient (BNVA) | payer MEDICARE, MEDICAID, SELFPAY | PROVIDERS: PCP Family Medicine; Visit Provider Anesthesiology Pain Medicine | DX: G89.29 Other chronic pain (principal); M54.16 Radiculopathy, lumbar region; E11.9 Type 2 diabetes mellitus without complications | CPT/HCPCS: 64483; 64484 ==

== ENCOUNTER → 2022-05-14 10:12 | Outpatient (BNVA) | payer MEDICARE, MEDICAID, SELFPAY | PROVIDERS: PCP Family Medicine; Visit Provider Anesthesiology Pain Medicine | DX: G89.29 Other chronic pain (principal); M47.22 Other spondylosis with radiculopathy, cervical region; G56.92 Unspecified mononeuropathy of left upper limb; M96.1 Postlaminectomy syndrome, not elsewhere classified; Z79.899 Other long term (current) drug therapy | CPT/HCPCS: 99214 ==

== ENCOUNTER → 2022-06-14 09:45 | Outpatient (BNVA) | payer MEDICARE, MEDICAID, SELFPAY | PROVIDERS: PCP Family Medicine; Visit Provider Anesthesiology Pain Medicine | DX: G89.29 Other chronic pain (principal); M54.50 Low back pain, unspecified; M96.1 Postlaminectomy syndrome, not elsewhere classified; M47.22 Other spondylosis with radiculopathy, cervical region; G56.92 Unspecified mononeuropathy of left upper limb; Z79.899 Other long term (current) drug therapy | CPT/HCPCS: 99214 ==

== ENCOUNTER → 2022-07-12 09:39 | Outpatient (BNVA) | payer MEDICARE, MEDICAID, SELFPAY | PROVIDERS: PCP Family Medicine; Visit Provider Anesthesiology Pain Medicine | DX: G89.29 Other chronic pain (principal); M47.22 Other spondylosis with radiculopathy, cervical region; M48.061 Spinal stenosis, lumbar region without neurogenic claudication; G56.92 Unspecified mononeuropathy of left upper limb; M96.1 Postlaminectomy syndrome, not elsewhere classified; Z79.899 Other long term (current) drug therapy | CPT/HCPCS: 99214 ==

== ENCOUNTER → 2022-07-26 14:34 | Outpatient (BNVA) | payer MEDICARE, MEDICAID, SELFPAY | PROVIDERS: PCP Family Medicine; Visit Provider Family Medicine | DX: Z00.00 Encounter for general adult medical examination without abnormal findings (principal); Z12.5 Encounter for screening for malignant neoplasm of prostate; Z13.6 Encounter for screening for cardiovascular disorders; Z11.59 Encounter for screening for other viral diseases; E11.9 Type 2 diabetes mellitus without complications | CPT/HCPCS: 80053; 80061; 83036; 83721; 85025; 86803; G0103 ==

== ENCOUNTER → 2022-08-08 09:20 | Outpatient (BNVA) | payer MEDICARE, MEDICAID, SELFPAY | PROVIDERS: PCP Family Medicine; Visit Provider Anesthesiology Pain Medicine | DX: G89.29 Other chronic pain (principal); M48.061 Spinal stenosis, lumbar region without neurogenic claudication; M47.22 Other spondylosis with radiculopathy, cervical region; M96.1 Postlaminectomy syndrome, not elsewhere classified; G56.92 Unspecified mononeuropathy of left upper limb; Z79.899 Other long term (current) drug therapy | CPT/HCPCS: 99214 ==

== ENCOUNTER → 2022-09-06 08:43 | Outpatient (BNVA) | payer MEDICARE, MEDICAID, SELFPAY | PROVIDERS: PCP Family Medicine; Visit Provider Anesthesiology Pain Medicine | DX: G89.29 Other chronic pain (principal); M47.22 Other spondylosis with radiculopathy, cervical region; M48.061 Spinal stenosis, lumbar region without neurogenic claudication; G56.92 Unspecified mononeuropathy of left upper limb; M96.1 Postlaminectomy syndrome, not elsewhere classified; Z79.899 Other long term (current) drug therapy | CPT/HCPCS: 99214 ==

== ENCOUNTER → 2022-09-12 15:33 | Outpatient (BNVA) | payer MEDICARE, MEDICAID, SELFPAY | PROVIDERS: PCP Family Medicine; Visit Provider Internal Medicine | DX: I11.0 Hypertensive heart disease with heart failure (principal); I50.32 Chronic diastolic (congestive) heart failure; E78.1 Pure hyperglyceridemia; G47.33 Obstructive sleep apnea (adult) (pediatric); R07.89 Other chest pain; Z87.891 Personal history of nicotine dependence | CPT/HCPCS: 99214 ==

== ENCOUNTER → 2022-10-04 10:23 | Outpatient (BNVA) | payer MEDICARE, MEDICAID, SELFPAY | PROVIDERS: PCP Family Medicine; Visit Provider Anesthesiology Pain Medicine | DX: G89.29 Other chronic pain; M47.812 Spondylosis without myelopathy or radiculopathy, cervical region; M47.22 Other spondylosis with radiculopathy, cervical region; G56.92 Unspecified mononeuropathy of left upper limb; M96.1 Postlaminectomy syndrome, not elsewhere classified; M54.50 Low back pain, unspecified; Z79.899 Other long term (current) drug therapy | CPT/HCPCS: 99214 ==

== ENCOUNTER → 2022-11-01 10:22 | Outpatient (BNVA) | payer MEDICARE, MEDICAID, SELFPAY | PROVIDERS: PCP Family Medicine; Visit Provider Anesthesiology Pain Medicine | DX: G89.29 Other chronic pain; M47.22 Other spondylosis with radiculopathy, cervical region; M96.1 Postlaminectomy syndrome, not elsewhere classified; G56.92 Unspecified mononeuropathy of left upper limb; Z79.899 Other long term (current) drug therapy | CPT/HCPCS: 99214 ==

== ENCOUNTER → 2022-11-21 09:41 | Outpatient (BNVA) | payer MEDICARE, MEDICAID, OTHER, SELFPAY | PROVIDERS: PCP Family Medicine; Visit Provider Anesthesiology Pain Medicine | DX: G89.29 Other chronic pain; G56.92 Unspecified mononeuropathy of left upper limb; M96.1 Postlaminectomy syndrome, not elsewhere classified; M47.22 Other spondylosis with radiculopathy, cervical region; Z79.899 Other long term (current) drug therapy | CPT/HCPCS: 99213 ==

== ENCOUNTER → 2022-12-20 10:20 | Outpatient (BNVA) | payer MEDICARE, SELFPAY | PROVIDERS: PCP Family Medicine; Visit Provider Anesthesiology Pain Medicine | DX: G89.29 Other chronic pain; M48.061 Spinal stenosis, lumbar region without neurogenic claudication; G56.92 Unspecified mononeuropathy of left upper limb; M96.1 Postlaminectomy syndrome, not elsewhere classified; M47.22 Other spondylosis with radiculopathy, cervical region; Z79.899 Other long term (current) drug therapy | CPT/HCPCS: 99214 ==

== ENCOUNTER → 2023-01-17 10:17 | Outpatient (BNVA) | payer MEDICARE, SELFPAY | PROVIDERS: PCP Family Medicine; Visit Provider Anesthesiology Pain Medicine | DX: G89.29 Other chronic pain; M47.22 Other spondylosis with radiculopathy, cervical region; M96.1 Postlaminectomy syndrome, not elsewhere classified; M48.061 Spinal stenosis, lumbar region without neurogenic claudication; Z79.899 Other long term (current) drug therapy | CPT/HCPCS: 99214 ==

== ENCOUNTER → 2023-02-14 10:56 | Outpatient (BNVA) | payer MEDICARE, SELFPAY | PROVIDERS: PCP Family Medicine; Visit Provider Anesthesiology Pain Medicine | DX: G89.29 Other chronic pain; M47.22 Other spondylosis with radiculopathy, cervical region; M48.061 Spinal stenosis, lumbar region without neurogenic claudication; M96.1 Postlaminectomy syndrome, not elsewhere classified; G56.92 Unspecified mononeuropathy of left upper limb; Z79.899 Other long term (current) drug therapy | CPT/HCPCS: 99214 ==

== ENCOUNTER → 2023-03-18 09:15 | Outpatient (BNVA) | payer MEDICARE, SELFPAY | PROVIDERS: PCP Family Medicine; Visit Provider Anesthesiology Pain Medicine | DX: G56.92 Unspecified mononeuropathy of left upper limb (principal); M96.1 Postlaminectomy syndrome, not elsewhere classified; G89.29 Other chronic pain; M47.22 Other spondylosis with radiculopathy, cervical region; Z79.899 Other long term (current) drug therapy; M48.061 Spinal stenosis, lumbar region without neurogenic claudication; M51.26 Other intervertebral disc displacement, lumbar region | CPT/HCPCS: 99214 ==

== ENCOUNTER → 2023-03-27 09:25 | Outpatient (BNVA) | payer MEDICARE, SELFPAY | PROVIDERS: PCP Family Medicine; Visit Provider Nurse Practitioner Family | DX: J06.9 Acute upper respiratory infection, unspecified (principal); J10.1 Influenza due to other identified influenza virus with other respiratory manifestations | CPT/HCPCS: 87400; 87426 ==

== ENCOUNTER → 2023-04-18 10:14 | Outpatient (BNVA) | payer MEDICARE, SELFPAY | PROVIDERS: PCP Family Medicine; Visit Provider Anesthesiology Pain Medicine | DX: G89.29 Other chronic pain; M51.26 Other intervertebral disc displacement, lumbar region; M48.061 Spinal stenosis, lumbar region without neurogenic claudication; M47.22 Other spondylosis with radiculopathy, cervical region; G56.92 Unspecified mononeuropathy of left upper limb; M96.1 Postlaminectomy syndrome, not elsewhere classified; Z79.899 Other long term (current) drug therapy | CPT/HCPCS: 99214 ==

== ENCOUNTER → 2023-05-14 14:58 | Outpatient (BNVA) | payer MEDICARE, SELFPAY | PROVIDERS: PCP Family Medicine; Referring Provider Anesthesiology Pain Medicine; Visit Provider Orthopaedic Surgery | DX: M54.9 Dorsalgia, unspecified (principal); M54.42 Lumbago with sciatica, left side; G89.29 Other chronic pain; M54.16 Radiculopathy, lumbar region | CPT/HCPCS: 72110; 99204 ==

== ENCOUNTER → 2023-05-16 10:42 | Outpatient (BNVA) | payer MEDICARE, SELFPAY | PROVIDERS: PCP Family Medicine; Visit Provider Anesthesiology Pain Medicine | DX: G56.92 Unspecified mononeuropathy of left upper limb (principal); M96.1 Postlaminectomy syndrome, not elsewhere classified; M54.42 Lumbago with sciatica, left side; G89.29 Other chronic pain; M47.22 Other spondylosis with radiculopathy, cervical region; Z79.899 Other long term (current) drug therapy; M51.26 Other intervertebral disc displacement, lumbar region; M48.061 Spinal stenosis, lumbar region without neurogenic claudication | CPT/HCPCS: 99214 ==

== ENCOUNTER → 2023-05-27 09:36 | Outpatient (BNVA) | payer MEDICARE, SELFPAY | PROVIDERS: PCP Family Medicine; Visit Provider Nurse Practitioner Psychiatric/Mental Health | DX: Z79.899 Other long term (current) drug therapy (principal) | CPT/HCPCS: 80053; 80061; 82306; 83036; 84443 ==

== ENCOUNTER → 2023-06-19 14:46 | Outpatient (BNVA) | payer MEDICARE, SELFPAY | PROVIDERS: PCP Family Medicine; Visit Provider Anesthesiology Pain Medicine | DX: G89.29 Other chronic pain; M47.22 Other spondylosis with radiculopathy, cervical region; M96.1 Postlaminectomy syndrome, not elsewhere classified; M54.42 Lumbago with sciatica, left side; G56.92 Unspecified mononeuropathy of left upper limb; Z79.899 Other long term (current) drug therapy | CPT/HCPCS: 99214 ==

== ENCOUNTER 2023-07-12 17:27 | Emergency (ER) | payer MEDICARE, SELFPAY ==
[2023-07-12 17:35] VITALS: BP 138/88; PULSE 66; RESP 17; TEMP 37.3; O2SAT 98
--- NOTE | 2023-07-12 17:35 | CTR_ITS ---
PROCEDURE INFORMATION: Exam: CT Head Without Contrast Exam date and time: 07/12/2023 6:10 PM Age: 57 years old Clinical indication: Other: Encepalopathy; Additional info: Encephalopathy, altered mental status TECHNIQUE: Imaging protocol: Computed tomography of the head without contrast. Radiation optimization: All CT scans at this facility use at least one of these dose optimization techniques: automated exposure control; mA and/or kV adjustment per patient size (includes targeted exams where dose is matched to clinical indication); or iterative reconstruction. COMPARISON: CT angio headneck* [id number] 08/28/2021 10:14 PM RADIATION DOSE METRICS: Total DLP (mGy-cm): 1162.08 FINDINGS: Brain: No hemorrhage. Roberto-white matter differentiation is maintained. Cerebral ventricles: No ventriculomegaly. Paranasal sinuses: Visualized sinuses are grossly clear with minimal mucosal thickening and/or retention cyst formation. Mastoid air cells: No mastoid effusion. Bones: Unremarkable. No acute fracture. Soft tissues: No acute findings. CT/CT head wo con* [id number] IMPRESSION: No acute intracranial abnormality.
--- NOTE | 2023-07-12 17:35 | ECG_ITS ---
[facility] Test Date: 2023-07-12 Pat Name: Ben Nielsen Department: Room: Gender: Male Emblem Drawer In: : 1965 Requested By: Rupa Kim Order Number: [id number] Knutson MD: Eduardo Wallace M.D. Measurements Intervals Elmo Rate: 63 P: 61 CA: 151 QRS: 58 QRSD: 101 T: 65 QT: 403 QTc: 414 Interpretive Statements SINUS RHYTHM Compared to ECG 08/28/2021 20:03:28 Sinus bradycardia no longer present Electronically Signed On 07-14-2023 12:38:27 CDT by Eduardo Wallace M.D. [id number] f
--- NOTE | 2023-07-12 17:35 | XRR_ITS ---
PROCEDURE INFORMATION: Exam: XR Chest Exam date and time: 07/12/2023 5:50 PM Age: 57 years old Clinical indication: Shortness of breath TECHNIQUE: Imaging protocol: Radiologic exam of the chest. Views: 1 view. COMPARISON: CR XR chest 1V portable [id number] 08/28/2021 7:33 PM FINDINGS: Lungs: No focal consolidation. Pleural spaces: No pleural effusion. No pneumothorax. Heart/Mediastinum: No cardiomegaly. Bones/joints: No acute findings. XR/XR chest 1V [id number] IMPRESSION: No acute chest findings.
--- NOTE | 2023-07-12 17:42 | ED_ITS ---
HPI - Weakness 2 General: Chief complaint: Weakness Stated complaint: LOW SODIUM? Time Seen by Provider: 07/12/23 17:32 History of Present Illness: 57-year-old man who presents to the [facility] room with weakness. His has history of coronary artery disease TIAs, congestive heart failure, CVA, congestive heart failure, but when asked about his medical history says his only medical problem is back pain that he is preparing for surgery for in the near future. Also reports that his sodium has been low on recent routine lab work at his PCP. Today he was out and started feeling very weak like he might pass out. He called his primary who told him to call an ambulance to come to the emergency room. He also reported his speech was a little bit slurred at the time. It seems improved now. His NIH is 0. No chest pain. He said he did feel a little bit short of breath earlier. No abdominal pain. No nausea or vomiting. Review of Systems 2 Narrative: Constitutional symptoms: Negative except as documented in HPI. Skin symptoms: Negative except as documented in HPI. Eye symptoms: Negative except as documented in HPI. ENMT symptoms: Negative except as documented in HPI. Respiratory symptoms: Negative except as documented in HPI. Cardiovascular symptoms: Negative except as documented in HPI. Gastrointestinal symptoms: Negative except as documented in HPI. Genitourinary symptoms: Negative except as documented in HPI. Musculoskeletal symptoms: Negative except as documented in HPI. Neurologic symptoms: Negative except as documented in HPI. Psychiatric symptoms: Negative except as documented in HPI. Endocrine symptoms: Negative except as documented in HPI. PFSH ED 2 PFSH: Medical History Nicotine dependence, chewing tobacco, uncomplicated Atherosclerosis of coronary artery Chest pain Psychiatric care Abnormal stress test COVID-19 History of colon polyps History of CVA (cerebrovascular accident) 2005 --left-sided weakness Nephrolithiasis Acute bronchitis Congestive heart failure Chronic low back pain Dizziness Major depressive disorder, recurrent, moderate Anxiety with somatic features Chronic neck pain History of AK (myocardial infarction) History of TIA (transient ischemic attack) Left ventricular hypertrophy Hypertriglyceridemia MRSA (methicillin resistant Staphylococcus aureus) Bright red rectal bleeding Internal hemorrhoids Diastolic heart failure Hypothyroidism Essential (primary) hypertension Surgical History H/O esophagogastroduodenoscopy (05/10/20) History of colonoscopy 12/2014 --small tubular adenoma, limited diverticulosis 02/2018 --small internal hemorrhoids S/P appendectomy S/P cholecystectomy S/P hernia repair ventral with mesh x 2 H/O neck surgery x 5 ( some of those were for a postop MRSA infection ) Family History Mother Congestive heart failure (CHF) Thyroid disease Sister Thyroid disease Father Atrial fibrillation Brother Heart disease HX STENTS Other CAD (coronary artery disease) Diabetes Social History Smoking and tobacco/nicotine status: former use of tobacco/nicotine Second hand smoke exposure: Yes Alcohol intake: never Substance/Drug Use: never Lives independently: Yes Household members: spouse Marital status: Current occupational status: disabled Do you think of yourself as: Straight/Heterosexual Current gender identity: Male Physical Exam 2 Narrative: EXAM NARRATIVE: General: Alert, no acute distress. Skin: Warm, dry. Head: Normocephalic, atraumatic. Neck: Supple, trachea midline. Eye: Extraocular movements are intact. Ears, nose, mouth and throat: mucosa moist. Cardiovascular: Regular, Normal peripheral perfusion. Respiratory: Lungs are clear to auscultation, respirations are non-labored, breath sounds are equal, Symmetrical chest wall expansion. Gastrointestinal: Soft, Nontender, Non distended, Normal bowel sounds. Musculoskeletal: Normal ROM, no deformity. Neurological: Alert and oriented, No focal neurological deficit observed. Psychiatric: Cooperative, appropriate mood & affect. Course 2 Vital Signs: Vital signs: Vital Signs Temperature 99.1 F 07/12/23 17:35 Pulse Rate 66 07/12/23 17:35 Respiratory Rate 17 07/12/23 18:42 Blood Pressure 138/88 07/12/23 17:35 Pulse Oximetry 99 07/12/23 18:42 Oxygen Delivery Me thod Room Air 07/12/23 17:35 MDM - Weakness Medical Decision Making Medical decision making: Differential diagnosis for patient presenting with generalized weakness including but not limited to and based on the above HPI, review of systems and physical exam: Sepsis. Dehydration. Renal failure. Electrolyte abnormalities. Anemia. Congestive heart failure. Hypotension. Coronary syndrome. Hepatitis. Cirrhosis. Infections such as pneumonia, urinary tract infection, [place]ick bourne illness, Cellulitis, Viral infections including influenza and Covid-19. Workup: labwork and lab/exam driven imaging ordered to evaluate, rule in and rule out above pathologies. EKG: Time 1735 rate 63 normal sinus rhythm, No ST-T changes, no ectopy, normal [place] & QRS intervals, This was reviewed and interpreted by myself the ER physician at 1740. Lab Review: Laboratory results were reviewed and interpreted by myself the emergency room physician. White count 11. Hemoglobin is 15. Sodium is 134. Glucose is 118. BUN and creatinine are 11 and 0.9. Troponin is negative. EKG is nonischemic. CT head: No acute intracranial process. no intracranial hemorrhage, no evidence of infarct. no evidence of acute fracture.This was reviewed and interpreted by myself the ER physician. Chest x-ray: No acute process. No infiltrate. No pneumothorax. No cardiomegaly. This was reviewed and interpreted by myself the ER physician. I reviewed the patient's medical record. Reexamination: Patient remained stable. He has had no dysrhythmias. No increased work of breathing. He is complaining of back pain. His blood pressure has been elevated secondary to his pain. No altered mental status. No slurred speech. No focal motor deficits. Assessment and plan: Urinary tract infection Near syncope Chronic pain syndrome -Normal saline bolus, Rocephin, IV Dilaudid - Discharged home - Discussed findings and plan with patient. Answered any questions. - All laboratory values were reviewed and interpreted personally by myself, the ER physician - All imaging was reviewed and interpreted personally by myself, the ER physician. - Evaluation and treatment of this problem were appropriate in the emergency setting Lab Data 07/12/23 17:43 07/12/23 17:43 Radiology Impressions Chest X-Ray 07/12/23 17:35 IMPRESSION: No acute chest findings. Head CT 07/12/23 17:35 IMPRESSION: No acute intracranial abnormality. Laboratory Results WBC 11.10 10^3/uL (3.29-11.43) 07/12/23 17:43 RBC 5.20 10^6/uL (3.85-5.65) 07/12/23 17:43 Hgb 15.20 g/dL (11.27-16.99) 07/12/23 17:43 Hct 46.0 % (37-53) 07/12/23 17:43 MCV 88.5 fl (82-101) 07/12/23 17:43 MCH 29.2 pg (27-33) 07/12/23 17:43 MCHC 33.0 g/dL (30-55) 07/12/23 17:43 RDW 12.8 % (12.1-15.1) 07/12/23 17:43 Plt Count 314 10^3/cmm (157-399) 07/12/23 17:43 MPV 11.3 fL (7.4-10.4) H 07/12/23 17:43 Neut % (Auto) 66.3 % 07/12/23 17:43 Lymph % (Auto) 20.7 % 07/12/23 17:43 Kerr % (Auto) 9.5 % 07/12/23 17:43 Eos % (Auto) 2.5 % 07/12/23 17:43 Baso % (Auto) 0.5 % 07/12/23 17:43 Neut # (Auto) 7.35 10^3/uL (1.8-7.7) 07/12/23 17:43 Lymph # (Auto) 2.3 10^3/uL (0.8-4.8) 07/12/23 17:43 Kerr # (Auto) 1.1 10^3/uL (0.2-0.9) H 07/12/23 17:43 Eos # (Auto) 0.3 10^3/uL (0.0-0.8) 07/12/23 17:43 Baso # (Auto) 0.1 10^3/uL (0.0-0.1) 07/12/23 17:43 Nucleated RBC % (auto) 0 % 07/12/23 17:43 Nucleated RBCs # 0.0 /100WBC 07/12/23 17:43 Specimen Type Arterial 07/12/23 17:39 Sample Site Brachial, left 07/12/23 17:39 ABG pH 7.43 (7.35-7.45) 07/12/23 17:39 ABG pCO2 42.3 mmHg (35-45) 07/12/23 17:39 ABG pO2 79.3 mmHg (80.0-100.0) L 07/12/23 17:39 ABG PO2/FiO2 Ratio 0 05/03/24 17:39 ABG HCO3 27.8 mmol/L (22-26) H 07/12/23 17:39 ABG O2 Saturation 97.7 07/12/23 17:39 ABG Base Excess 3.0 mmol/L (-2.0-2.0) H 07/12/23 17:39 Moy Test N/a 07/12/23 17:39 A-a O2 Gradient 2.3 mmHg (5-10) L 07/12/23 17:39 Hematocrit 43.8 % (42-52) 07/12/23 17:39 Hgb O2 Saturation 91.3 % (95-100) L 07/12/23 17:39 Carboxyhemoglobin 5.7 %THgb (0.4-20.1) 07/12/23 17:39 Methemoglobin 0.9 % (0.4-1.5) 07/12/23 17:39 Total Hemoglobin 14.3 g/dL (14-18) 07/12/23 17:39 Sodium 137.0 mmol/L (131-143) 07/12/23 17:39 Potassium 4.2 mmol/L (3.5-5.0) 07/12/23 17:39 Glucose 111.0 mg/dL (70-115) 07/12/23 17:39 Ionized Calcium 1.2 mmol/L (1.1-1.4) 07/12/23 17:39 O2 Delivery Device Room air 07/12/23 17:39 FiO2 21.0 % 07/12/23 17:39 Block Making Machine Operator ID [id number] 07/12/23 17:39 Sodium 134 mmol/L (136-145) L 07/12/23 17:43 Potassium 4.2 mmol/L (3.5-5.1) 07/12/23 17:43 Chloride 96 mmol/L (98-107) L 07/12/23 17:43 Carbon Dioxide 28 mmol/L (22-29) 07/12/23 17:43 Anion Gap 14.2 (5-19) 07/12/23 17:43 BUN 11 mg/dL (6-20) 07/12/23 17:43 Creatinine 0.9 mg/dL (0.7-1.2) 07/12/23 17:43 GFR Calculation 87.0 mL/min (90-130) L 07/12/23 17:43 Glucose 118 mg/dL (65-115) H 07/12/23 17:43 Calculated Osmolality 278 mOsm/kg (285-295) L 07/12/23 17:43 Lactic Acid 1.9 mmol/L (0.5-2.2) 07/12/23 17:43 Calcium 8.9 mg/dL (8.5-10.5) 07/12/23 17:43 Total Bilirubin 0.3 mg/dL (0.15-1.2) 07/12/23 17:43 AST 18 U/L (0-40) 07/12/23 17:43 ALT 18 U/L (0-41) 07/12/23 17:43 Alkaline Phosphatase 74 U/L (40-130) 07/12/23 17:43 Troponin T Baseline 10 ng/L (0-15) 07/12/23 17:43 C-Reactive Protein 3.0 mg/L (0.0-4.9) 07/12/23 17:43 Total Protein 8.0 g/dL (6.6-8.7) 07/12/23 17:43 Albumin 4.8 g/dL (3.5-5.2) 07/12/23 17:43 Globulin 3.2 g/dL (1.3-4.6) 07/12/23 17:43 Urine Color Yellow (Yellow) 07/12/23 18:45 Urine Appearance Clear (CLEAR) 07/12/23 18:45 Urine pH 9 (5-7) H 07/12/23 18:45 Ur Specific Seffner 1.010 (1.005-1.030) 07/12/23 18:45 Urine Protein Neg (Negative) 07/12/23 18:45 Urine Glucose (UA) Norm (Normal) 07/12/23 18:45 Urine Ketones 1+ (Negative) H 07/12/23 18:45 Urine Blood Neg (Negative) 07/12/23 18:45 Urine Nitrate Negative (Negative) 07/12/23 18:45 Urine Bilirubin Neg (Negative) 07/12/23 18:45 Prot Sulfosalicylic Acd Negative (Negative) 07/12/23 18:45 Urine Urobilinogen Neg mg/dL (Negative) 05/03/24 18:45 Ur Leukocyte Esterase Negative (Negative) 07/12/23 18:45 Urine RBC 0-4 /hpf (0-2) H 07/12/23 18:45 Urine WBC 5-10 /hpf (0-5) H 07/12/23 18:45 Ur Squamous Epith Cells 0-4 /hpf (0-5) H 07/12/23 18:45 Amorphous Sediment Trace /hpf 07/12/23 18:45 Urine Bacteria Trace /hpf (NONE) 07/12/23 18:45 Urine Opiates Screen Positive ng/mL (Negative) H 07/12/23 18:45 Ur Barbiturates Screen Negative ng/mL (Negative) 07/12/23 18:45 Ur Phencyclidine Scrn Negative ng/mL (Negative) 07/12/23 18:45 Ur Amphetamines Screen Negative ng/mL (Negative) 07/12/23 18:45 U Benzodiazepines Scrn Negative ng/mL (Negative) 07/12/23 18:45 Urine Cocaine Screen Negative ng/mL (Negative) 07/12/23 18:45 U Marijuana (THC) Screen Positive ng/mL (Negative) H 07/12/23 18:45 All radiology interpretation(s) finalized by discharge Discharge Plan Discharge Patient Disposition: Home Clinical Impression: Near syncope, Urinary tract infection, Chronic pain syndrome Condition: Stable Prescriptions: New cefdinir 300 mg capsule 300 mg PO BID 5 Days Qty: 10 0RF No Action aspirin [Adult Low Dose Aspirin] 81 mg tablet,delayed release (DR/EC) 81 mg PO BID nitroglycerin 0.4 mg tablet, sublingual 0.4 mg SUBLINGUAL ONCE PRN (Reason: Chest Pain) Qty: 25 3RF melatonin 5 mg tablet 5 mg PO BEDTIME albuterol sulfate 90 mcg/actuation HFA aerosol inhaler 2 inh INHALATION Q4H PRN (Reason: shortness of breath or wheezing) Qty: 8.5 1RF Rx Instructions: 340 B medications (DME) CPAP supplies See Rx Instructions .Route .MEDSUPPLY Qty: 1 0RF Rx Instructions: Mask, tubing, filters. (DME) blood-glucose meter [OneTouch Ultra2 Meter] Misc See Rx Instructions .Route Qty: 1 0RF Rx Instructions: to use to check blood sugar once daily (DME) OneTouch Ultra Test Strip See Rx Instructions .Route Qty: 100 3RF Rx Instructions: to check blood sugar once daily in onetouch meter 90day supply bupivacaine (PF) 0.25 % (2.5 mg/mL) solution 1 ml intra-articular ONCE Qty: 1 0RF methylprednisolone acetate [Depo-Medrol] 40 mg/mL suspension 40 mg IM ONCE Qty: 1 0RF tizanidine 4 mg tablet 8 mg PO TID 30 Days Qty: 180 0RF morphine 15 mg tablet 15 mg PO BID MDD 2 PRN (Reason: pain) 15 Days Qty: 30 0RF gabapentin 400 mg capsule 800 mg PO TID 90 Days Qty: 540 0RF diazepam 10 mg tablet 10 mg PO ONCE PRN (Reason: anxiety) Qty: 2 0RF Rx Instructions: Take 1 hour prior to each procedure. naloxone [Narcan] 4 mg/actuation spray,non-aerosol 4 mg intranasal Q2M PRN (Reason: opioid overdose) Qty: 2 3RF Rx Instructions: spray 1 dose into 1 nostril alternate nostrils w ea dose until help arrives lorazepam [Ativan] 1 mg tablet 1 mg PO BID PRN (Reason: anxiety) 1 Days Qty: 2 0RF Rx Instructions: Take one tablet 60 minutes prior to procedure, take second if needed. bupivacaine (PF) 0.25 % (2.5 mg/mL) solution 2 ml Infiltration ONCE Qty: 1 0RF quetiapine [Seroquel] 25 mg tablet 25 mg PO BID Qty: 180 2RF Rx Instructions: Take one tablet twice per day quetiapine [Seroquel] 50 mg tablet 50 mg PO .bedtime Qty: 90 2RF Rx Instructions: Take one tablet at bedtime (DME) back brace [Back Support S/M] Misc See Rx Instructions .Route Qty: 1 0RF Rx Instructions: As directed (DME) back brace Misc See Rx Instructions .ROUTE .MEDSUPPLY Qty: 1 0RF Rx Instructions: As directed fenofibrate nanocrystallized [Tricor] 145 mg tablet 145 mg PO DAILY 90 Days Qty: 90 1RF potassium chloride 20 mEq tablet extended release 20 meq PO DAILY@0800 Qty: 90 3RF furosemide 40 mg tablet 40 mg PO BID PRN (Reason: weight gain) Qty: 180 3RF (DME) AUTO - TITRATING CPAP 6-10CM See Rx Instructions .Route .MEDSUPPLY Qty: 1 0RF Rx Instructions: As directed pantoprazole 40 mg tablet,delayed release (DR/EC) See Rx Instructions .ROUTE .COMPLEX Qty: 90 0RF Dose Instruction: Take 1 tablet by mouth once daily Rx Instructions: Take 1 tablet by mouth once daily Discharge Orders: Discharge ED (Routine); Ordered 07/12/23 Ordered By: Rupa Rodríguez Referrals: Qi Muhammad, [Primary Care Provider] - (You have been screened and evaluated and felt safe for discharge. Health conditions do change or evolve sometimes and as such it is important that you follow up with your Primary Doctor to be re checked, 3-5 days is a general good time frame for follow up. You are always welcome to return to the ED for re assessment if your symptoms are worsening or you have new concerns) Discharge Diet: Usual diet Discharge Activity: Increase activity as tolerated Patient Instructions: Urinary Tract Infection in Men (ED), Near Syncope (ED), Opioid Safety, Pain Management Coding Level of Care Code ED Energy And Conservation Technician for Emy Ford
[2023-07-12 17:50] LABS: ABG PCO2 42.3 mmHg (35-45); ABG PH Result 7.43 (7.35-7.45); Alveolar-Arterial Oxygen Gradi 2.3 mmHg (5-10); Arterial Blood Gas Hematocrit 43.8 % (42-52); Blood Gas Operator Identificat AMH; Blood Gas Sample Site Brachial, left; Blood Gas Sample Type Arterial; Carboxyhemoglobin 5.7 %THgb (0.4-20.1); HCO3 ABG 27.8 mmol/L (22-26); HGB O2 Sat 91.3 % (95-100); Ionized Calcium Level - ABG 1.2 mmol/L (1.1-1.4); Methemoglobin 0.9 % (0.4-1.5); Oxygen Device ROOM AIR; Oxygen Saturation ABG 97.7; PO2 ABG 79.3 mmHg (80.0-100.0); PO2 FiO2 Ratio Arterial Blood 0; Potassium Level - ABG 4.2 mmol/L (3.5-5.0); Total Hemoglobin 14.3 g/dL (14-18)
[2023-07-12 17:50] LABS: Basophils # 0.1 10^3/uL (0.0-0.1); Basophils % 0.5 %; Eosinophils # 0.3 10^3/uL (0.0-0.8); Eosinophils % 2.5 %; Lymphocytes # 2.3 10^3/uL (0.8-4.8); Lymphocytes % 20.7 %; Mean Corpuscular Hemoglobin 29.2 pg (27-33); Mean Corpuscular Volume 88.5 fl (82-101); Mean Platelet Volume 11.3 fL (7.4-10.4); Monocytes # 1.1 10^3/uL (0.2-0.9); Monocytes % 9.5 %; Neutrophils # 7.35 10^3/uL (1.8-7.7); Neutrophils % 66.3 %; Nucleated Red Blood Cells % 0 %; Platelet Count 314 10^3/cmm (157-399); Red Cell Distribution Width 12.8 % (12.1-15.1)
[2023-07-12 18:11] LABS: Alanine Aminotransferase 18 U/L (0-41); Albumin Level 4.8 g/dL (3.5-5.2); Alkaline Phosphatase 74 U/L (40-130); Anion Gap 14.2 (5-19); Aspartate Amino Transferase 18 U/L (0-40); Blood Urea Nitrogen 11 mg/dL (6-20); Calcium 8.9 mg/dL (8.5-10.5); Carbon Dioxide 28 mmol/L (22-29); Chloride 96 mmol/L (98-107); Creatinine Clr Calc Pharmacy 107.2288; Globulin 3.2 g/dL (1.3-4.6); Glucose 118 mg/dL (65-115); Osmolality Calculated 278 mOsm/kg (285-295); Potassium 4.2 mmol/L (3.5-5.1); Sodium 134 mmol/L (136-145); Total Bilirubin 0.3 mg/dL (0.15-1.2)
[2023-07-12 18:14] LABS: Lactic Sepsis W/Reflex 1.9 mmol/L (0.5-2.2); Troponin(5th) Baseline 10 ng/L (0-15)
[2023-07-12 18:42] VITALS: RESP 17; O2SAT 99
[2023-07-12] MEDS: tizanidine 4 mg Tablet 8 MG PO (18:42)
[2023-07-12] MEDS: morphine IR 15 mg Tablet PO (18:42)
[2023-07-12 19:05] LABS: Amphetamines Screen Urine Negative (Negative); Barbiturates Screen Urine Negative (Negative); Benzodiazepines Screen Urine Negative (Negative); Cocaine Screen Urine Negative (Negative); Opiate Screen Urine Positive (Negative); PCP Screen Urine Negative (Negative); THC Screen Urine Positive (Negative)
[2023-07-12 19:06] LABS: Amorphous Sediment Urine TRACE /hpf; Bacteria Urine TRACE /hpf; Bilirubin Urine Neg (Negative); Blood Urine Neg (Negative); Glucose Urine UA Norm (Normal); Ketones Urine 1+ (Negative); Leukocyte Esterase Urine Negative (Negative); Nitrate Urine Negative (Negative); Protein Urine Neg (Negative); RBC Urine 0-4 /hpf (0-2); Squamous Epithelial Cell Urine 0-4 /hpf (0-5); Sulfosalicylic Acid Urine Negative (Negative); Urine Appearance Clear (CLEAR); Urine Color Yellow (Yellow); Urobilinogen Urine Neg (Negative); pH Urine 9 (5-7)
[2023-07-12 20:12] VITALS: RESP 17; O2SAT 97
[2023-07-12] MEDS: sodium chloride 0.9% 1,000 ML 999 ML IV (20:12)
[2023-07-12] MEDS: HYDROmorphone 1 mg/mL INJ 1 mL 2 MG IVP (20:12)
[2023-07-12] MEDS: cefTRIAXone 1,000 MG in water for injection-sterile 2.1 ML 2.10000000000000009 MG IM (20:12)
== END 2023-07-12 21:29 | disposition home or self-care (01) ==
PROVIDERS: Emergency Provider Emergency Medicine; PCP Family Medicine
DX: R55 Syncope and collapse (principal); N39.0 Urinary tract infection, site not specified; G89.4 Chronic pain syndrome; Z79.82 Long term (current) use of aspirin; Z87.891 Personal history of nicotine dependence; I25.10 Atherosclerotic heart disease of native coronary artery without angina pectoris; Z86.73 Personal history of transient ischemic attack (TIA), and cerebral infarction without residual deficits; I11.0 Hypertensive heart disease with heart failure; I50.9 Heart failure, unspecified; I25.2 Old myocardial infarction
CPT/HCPCS: 36600; 70450; 71045; 80051; 80053; 80306; 81001; 82330; 82805; 83605; 84484; 85025; 86140; 93005; 96372; 96374; 99285; J0696; J1170; J7030

== ENCOUNTER 2023-07-13 20:39 | Observation (INO) | payer MEDICARE, SELFPAY ==
[2023-07-13 21:08] VITALS: PULSE 73; RESP 25; TEMP 37; O2SAT 97; BMI 31.5
--- NOTE | 2023-07-13 22:54 | CTR_ITS ---
PROCEDURE INFORMATION: Exam: CT Abdomen And Pelvis With Contrast Exam date and time: 07/14/2023 12:07 AM Age: 57 years old Clinical indication: Fever and nausea and vomiting; Prior surgery; Surgery date: 6+ months; Surgery type: Gb. Hernia repair. Appy. Patient HX: C/O fever with n/v. Diagnosed with UTI yesterday. ; Additional info: Abd pain, vomiting TECHNIQUE: Imaging protocol: Computed tomography of the abdomen and pelvis with contrast. Radiation optimization: All CT scans at this facility use at least one of these dose optimization techniques: automated exposure control; mA and/or kV adjustment per patient size (includes targeted exams where dose is matched to clinical indication); or iterative reconstruction. Contrast material: OMNI 350; Contrast volume: 100 ml; Contrast route: INTRAVENOUS (IV); COMPARISON: MR abdomen wo/w con* [id number] 12/14/2019 2:18 PM RADIATION DOSE METRICS: Total DLP (mGy-cm): 930.42 FINDINGS: Coronary arteries: Coronary arterial atherosclerotic calcifications are present. Liver: Normal. No mass. Gallbladder and bile ducts: The gallbladder is absent. Pancreas: Normal. No ductal dilation. Spleen: Normal. No splenomegaly. Adrenal glands: Normal. No mass. Kidneys and ureters: Normal. No hydronephrosis. Stomach and bowel: Unremarkable. No obstruction. No mucosal thickening. Appendix: The appendix is not visualized but there are no secondary signs of acute appendicitis. Intraperitoneal space: Unremarkable. No free air. No significant fluid collection. Vasculature: Unremarkable. No abdominal aortic aneurysm. Lymph nodes: Unremarkable. No enlarged lymph nodes. Urinary bladder: Unremarkable as visualized. Reproductive: Unremarkable as visualized. Bones/joints: Unremarkable. No acute fracture. Soft tissues: Unremarkable. CT/CT abdomen pelvis w con* [id number] IMPRESSION: 1. No bowel obstruction or inflammatory process associated with the bowel. 2. No free air or significant free fluid in the abdomen or pelvis. 3. The appendix is not visualized but there are no secondary signs of acute appendicitis.
[2023-07-13 23:36] VITALS: RESP 18
[2023-07-13] MEDS: morphine 4 mg/mL SDV 1 mL 8 MG IVP (23:36)
[2023-07-13 23:37] LABS: Basophils # 0.1 10^3/uL (0.0-0.1); Basophils % 0.4 %; Eosinophils # 0.3 10^3/uL (0.0-0.8); Hematocrit 46.7 % (37-53); Lymphocytes # 2.5 10^3/uL (0.8-4.8); Mean Corpuscular HGB Conc 33.4 g/dL (30-55); Mean Corpuscular Hemoglobin 29.3 pg (27-33); Mean Corpuscular Volume 87.8 fl (82-101); Mean Platelet Volume 11.2 fL (7.4-10.4); Monocytes # 1.1 10^3/uL (0.2-0.9); Monocytes % 8.5 %; Neutrophils % 68.7 %; Nucleated Red Blood Cells % 0 %; Platelet Count 274 10^3/cmm (157-399); Red Blood Count 5.32 10^6/uL (3.85-5.65); Red Cell Distribution Width 12.6 % (12.1-15.1); White Blood Count 12.37 10^3/uL (3.29-11.43)
[2023-07-13] MEDS: ondansetron 2 mg/ML SDV 2 mL 4 MG IVP (23:37)
[2023-07-13] MEDS: cefTRIAXone 1,000 MG in sodium chloride 0.9% (plus) 50 ML 100 MG IV (23:37)
[2023-07-13] MEDS: sodium chloride 0.9% 1,000 ML 999 ML IV (23:48)
[2023-07-13 23:56] LABS: Lactic Sepsis W/Reflex 2.2 mmol/L (0.5-2.2)
[2023-07-13 23:57] LABS: Alanine Aminotransferase 18 U/L (0-41); Albumin Level 4.5 g/dL (3.5-5.2); Alkaline Phosphatase 73 U/L (40-130); Anion Gap 17.2 (5-19); Aspartate Amino Transferase 18 U/L (0-40); Blood Urea Nitrogen 9 mg/dL (6-20); Calcium 9.4 mg/dL (8.5-10.5); Carbon Dioxide 24 mmol/L (22-29); Chloride 97 mmol/L (98-107); Creatinine Clr Calc Pharmacy 107.2288; Globulin 3.4 g/dL (1.3-4.6); Glucose 129 mg/dL (65-115); Lipase 20 U/L (13-60); Osmolality Calculated 278 mOsm/kg (285-295); Potassium 4.2 mmol/L (3.5-5.1); Sodium 134 mmol/L (136-145); Total Bilirubin 0.4 mg/dL (0.15-1.2); Total Protein 7.9 g/dL (6.6-8.7)
[2023-07-14] VITALS (9 sets, daily range): BP systolic 152–202; BP diastolic 83–107; PULSE 59–75; RESP 15–18; TEMP 36.5–36.8; O2SAT 93–96
[2023-07-14] MEDS: iohexol 350 mg/mL 500 mL Btl (per mL) IV (00:10)
--- NOTE | 2023-07-14 00:27 | W.ED.NAVMDI ---
HPI - Nausea/Vomiting/Diarrhea General: Chief complaint: Nausea/Vomiting/Diarrhea Stated complaint: n/v Time Seen by Provider: 07/13/23 21:33 History of Present Illness: 57-year-old male with a history of chronic pain, and evidently low sodiums. He was seen last night for generalized weakness, vomiting. He notes that upon discharge home, he has not been able to hold any food down or fluids today. He has continued ongoing generalized weakness. No fever. He does states that he is freezing . He reports not having had symptoms like this before. Associated nausea: Yes Associated symtoms: Reports anxiety, headache(s) and nausea; Denies chest pain or palpitations Review of Systems Const: Reports: chills and body aches; Denies: fever(s) Card: Denies: chest pain or palpitations Resp: Denies: dyspnea, productive cough or non-productive cough GI: Reports: abdominal pain, nausea and vomiting; Denies: diarrhea Skin/Breast: Denies: rash Neuro: Reports: headache(s) Psych: Reports: anxiety Endo: Reports: polydipsia PFSH ED PFSH: Medical History Nicotine dependence, chewing tobacco, uncomplicated Atherosclerosis of coronary artery Chest pain Psychiatric care Abnormal stress test COVID-19 History of colon polyps History of CVA (cerebrovascular accident) 2005 --left-sided weakness Nephrolithiasis Acute bronchitis Congestive heart failure Chronic low back pain Dizziness Major depressive disorder, recurrent, moderate Anxiety with somatic features Chronic neck pain History of [place] (myocardial infarction) History of TIA (transient ischemic attack) Left ventricular hypertrophy Hypertriglyceridemia MRSA (methicillin resistant Staphylococcus aureus) Bright red rectal bleeding Internal hemorrhoids Diastolic heart failure Hypothyroidism Essential (primary) hypertension Surgical History H/O esophagogastroduodenoscopy (05/10/20) History of colonoscopy 12/2014 --small tubular adenoma, limited diverticulosis 02/2018 --small internal hemorrhoids S/P appendectomy S/P cholecystectomy S/P hernia repair ventral with mesh x 2 H/O neck surgery x 5 ( some of those were for a postop MRSA infection ) Family History Mother Congestive heart failure (CHF) Thyroid disease Sister Thyroid disease Father Atrial fibrillation Brother Heart disease HX STENTS Other CAD (coronary artery disease) Diabetes Social History Smoking and tobacco/nicotine status: former use of tobacco/nicotine Second hand smoke exposure: Yes Alcohol intake: never Substance/Drug Use: never Lives independently: Yes Household members: spouse Marital status: Current occupational status: disabled Do you think of yourself as: Straight/Heterosexual Current gender identity: Male Physical Exam Const: COMMON NORMALS: no acute distress GENERAL APPEARANCE: cooperative, ill appearing and frail appearing HENMT: COMMON NORMALS: normocephalic, atraumatic and Normal external nose present HEAD & SCALP: normocephalic and atraumatic FACE & SINUS: normal facial exam and face symmetric NOSE: Normal external nose present Eye: COMMON NORMALS: Equal, round and reactive pupils present and EOMs intact bilaterally PUPIL: Yes Equal, round and reactive pupils present Neck/C-Spine: GENERAL: Yes trachea midline Chest: CHEST: Yes Symmetrical chest wall rise Resp: COMMON NORMALS: normal respiratory effort, No retractions, No use of accessory muscles and clear to auscultation bilaterally AUSCULTATION: clear to auscultation bilaterally Cardio: COMMON NORMALS: regular rate and regular rhythm RATE: regular rate RHYTHM: regular rhythm GI: COMMON NORMALS: Normal to inspection, nondistended, normoactive bowel sounds present Extremity: COMMON NORMALS: no pedal edema Neuro: SHYANNE COMA SCALE: document GCS findings [place] coma scale eye opening: Spontaneous [place] coma scale verbal response: Orientated [place] coma scale motor response: Obey commands Shyanne coma scale total score: 15 SENSORY EXAM: Yes extremities (intact) Psych: COMMON NORMALS: speech normal SPEECH: Yes normal speech Skin: COMMON NORMALS: no rashes or lesions noted GENERAL SKIN EXAM: no rashes or lesions noted Course Vital Signs: Vital signs: Vital Signs Temperature 97.7 F 07/14/23 12:00 Pulse Rate 62 07/14/23 12:00 Respiratory Rate 18 07/14/23 12:00 Blood Pressure 152/84 07/14/23 12:00 Pulse Oximetry 95 07/14/23 12:00 Oxygen Delivery Me thod Room Air 07/14/23 05:23 MDM - Nausea/Vomiting/Diarrhea Medical Decision Making White blood cell count is 12.4. Hemoglobin is 15.6. Sodium is 134, potassium 4.2. Abdominal CT shows no bowel obstruction or inflammatory process. There is no free air. At this point, his symptoms are likely related to narcotic withdrawal, as he has not been able to take any of his chronic pain medications or hold them down. He is given morphine here, and is no longer tremulous however, the patient still cannot walk, is still nauseated and vomiting despite the above. Because of intractable vomiting and weakness, the patient will be observed for IV fluid therapy, antiemetics, pain medication, etc. Hospitalist will see the patient Lab Data 07/13/23 22:25 07/13/23 22:25 Radiology Impressions Abdomen/Pelvis CT 07/13/23 22:54 IMPRESSION: 1. No bowel obstruction or inflammatory process associated with the bowel. 2. No free air or significant free fluid in the abdomen or pelvis. 3. The appendix is not visualized but there are no secondary signs of acute appendicitis. Laboratory Results WBC 12.37 10^3/uL (3.29-11.43) H 07/13/23 22:25 RBC 5.32 10^6/uL (3.85-5.65) 07/13/23 22:25 Hgb 15.60 g/dL (11.27-16.99) 07/13/23 22: Hct 46.7 % (37-53) 07/13/23 22: MCV 87.8 fl (82-101) 07/13/23 22:25 MCH 29.3 pg (27-33) 07/13/23 22: MCHC 33.4 g/dL (30-55) 07/13/23 22:25 RDW 12.6 % (12.1-15.1) 07/13/23 22: Plt Count 274 10^3/cmm (157-399) 07/13/23 22: MPV 11.2 fL (7.4-10.4) H 07/13/23 22:25 Neut % (Auto) 68.7 % 07/13/23 22: Lymph % (Auto) 20.0 % 07/13/23 22:25 [place] % (Auto) 8.5 % 07/13/23 22:25 Eos % (Auto) 2.0 % 07/13/23 22: Baso % (Auto) 0.4 % 07/13/23 22:25 Neut # (Auto) 8.50 10^3/uL (1.8-7.7) H 07/13/23 22:25 Lymph # (Auto) 2.5 10^3/uL (0.8-4.8) 07/13/23 22:25 [place] # (Auto) 1.1 10^3/uL (0.2-0.9) H 07/13/23 22:25 Eos # (Auto) 0.3 10^3/uL (0.0-0.8) 07/13/23 22:25 Baso # (Auto) 0.1 10^3/uL (0.0-0.1) 07/13/23 22: Nucleated RBC % (auto) 0 % 07/13/23 22: Nucleated RBCs # 0.0 /100WBC 07/13/23 22:25 Sodium 134 mmol/L (136-145) L 07/13/23 22: Potassium 4.2 mmol/L (3.5-5.1) 07/13/23 22: Chloride 97 mmol/L (98-107) L 07/13/23 22:25 Carbon Dioxide 24 mmol/L (22-29) 07/13/23 22:25 Anion Gap 17.2 (5-19) 07/13/23 22:25 BUN 9 mg/dL (6-20) 07/13/23 22:25 Creatinine 0.9 mg/dL (0.7-1.2) 07/13/23 22:25 GFR Calculation 87.0 mL/min (90-130) L 07/13/23 22:25 Glucose 129 mg/dL (65-115) H 07/13/23 22:25 Calculated Osmolality 278 mOsm/kg (285-295) L 07/13/23 22:25 Lactic Acid 2.2 mmol/L (0.5-2.2) 07/13/23 23:03 Calcium 9.4 mg/dL (8.5-10.5) 07/13/23 22:25 Total Bilirubin 0.4 mg/dL (0.15-1.2) 07/13/23 22:25 AST 18 U/L (0-40) 07/13/23 22: ALT 18 U/L (0-41) 07/13/23 22:25 Alkaline Phosphatase 73 U/L (40-130) 07/13/23 22:25 C-Reactive Protein 3.0 mg/L (0.0-4.9) 07/13/23 22:25 Total Protein 7.9 g/dL (6.6-8.7) 07/13/23 22:25 Albumin 4.5 g/dL (3.5-5.2) 07/13/23 22: Globulin 3.4 g/dL (1.3-4.6) 07/13/23 22:25 Lipase 20 U/L (13-60) 07/13/23 22:25 Urine Color Yellow (Yellow) 07/14/23 00:44 Urine Appearance Clear (CLEAR) 07/14/23 00:44 Urine pH 8 (5-7) H 07/14/23 00:44 Ur Specific [place] 1.010 (1.005-1.030) 07/14/23 00:44 Urine Protein Neg (Negative) 07/14/23 00:44 Urine Glucose (UA) Norm (Normal) 07/14/23 00:44 Urine Ketones Negative (Negative) 07/14/23 00:44 Urine Blood Neg (Negative) 07/14/23 00:44 Urine Nitrate Negative (Negative) 07/14/23 00:44 Urine Bilirubin Neg (Negative) 07/14/23 00:44 Prot Sulfosalicylic Acd Negative (Negative) 07/14/23 00:44 Urine Urobilinogen Neg mg/dL (Negative) 07/14/23 00:44 Ur Leukocyte Esterase Negative (Negative) 07/14/23 00:44 All radiology interpretation(s) finalized by discharge Discharge Plan Discharge Patient Disposition: Admitted As Inpatient Admit Provider: Ant Vasquez Clinical Impression: Anxiety with somatic features, Near syncope, Intractable nausea and vomiting Condition: Fair Coding Level of Care Code 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
[2023-07-14] MEDS: morphine 4 mg/mL SDV 1 mL IVP (01:00)
[2023-07-14] MEDS: ondansetron 2 mg/ML SDV 2 mL 4 MG IVP (01:00)
[2023-07-14] MEDS: sodium chloride 0.9% 1,000 ML 999 ML IV (01:00)
[2023-07-14 01:15] LABS: Add Urine Microscopic? NO; Charge for UA Resulting for Rev
[2023-07-14 01:16] LABS: Bilirubin Urine Neg (Negative); Blood Urine Neg (Negative); Glucose Urine UA Norm (Normal); Ketones Urine Negative (Negative); Leukocyte Esterase Urine Negative (Negative); Nitrate Urine Negative (Negative); Protein Urine Neg (Negative); Sulfosalicylic Acid Urine Negative (Negative); Urine Appearance Clear (CLEAR); Urine Color Yellow (Yellow); Urobilinogen Urine Neg (Negative); pH Urine 8 (5-7)
[2023-07-14 01:19] LABS: Reflex Lactate Order REFLEX LACTIC ORDERD
--- NOTE | 2023-07-14 03:02 | P.HP_ITS ---
Providers/Chief Complaint 2 Primary Care Provider: Qi Muhammad DO Chief Complaint: n/v History of Present Illness Ben Nielsen is a 57 year old male with a past medical history significant for chronic pain on chronic opiates, coronary artery disease, stroke, nephrolithiasis, depression, anxiety, and multiple other comorbidities who presents to the emergency department with intractable nausea and vomiting. Patient states he was in his usual state of health until about 2 weeks ago when he got sick. Endorses generalized malaise and fatigue. He developed nausea and vomiting. He was seen in the emergency department the night prior with a chief complaint of weakness. He was diagnosed with a urinary tract infection and treated with IV bolus, Rocephin, and hydromorphone. Patient family reports he returned home only to have continued nausea and vomiting. He describes the vomiting as projectile. He states he cannot hold anything down. He tried sips of water but vomited that as well. He is on chronic morphine and is concerned he could be withdrawing. Denies other alleviating or aggravating factors. In the emergency department, he was found to be hypertensive. Labs revealed very mild leukocytosis to 12.37. CMP was largely unremarkable with very mild hyponatremia to [address] of the abdomen pelvis showed no bowel obstruction or inflammatory processes. He failed the oral challenge with repeated vomiting in the emergency department for which she presents for hospital admission. Review of Systems 2 Narrative: A complete review of systems was obtained and is negative except as stated in HPI. Medications/Allergies Home Medications Medication Instructions Recorded Confirmed Last Taken Type CPAP supplies #1 ea 11/29/20 07/10/23 Unknown Rx blood sugar diagnostic (OneTouch #100 ea 01/26/21 07/10/23 Unknown Rx Ultra Test strips) blood-glucose meter (OneTouch #1 ea 01/26/21 07/10/23 Unknown Rx Ultra2 Meter) albuterol sulfate 90 mcg/actuation 2 inh inhalation Q4H PRN shortness 03/24/21 07/10/23 Unknown Rx aerosol inhaler of breath or wheezing #8.5 grams aspirin 81 mg tablet,delayed 81 mg PO BID 04/06/21 07/10/23 11/03/21 History release (Adult Low Dose Aspirin) nitroglycerin 0.4 mg sublingual 0.4 mg sublingual ONCE PRN Chest 04/06/21 07/10/23 Unknown Rx tablet Pain #25 tabs back brace (Back Support S/M) #1 ea 05/15/21 07/10/23 Unknown Rx back brace #1 ea 05/30/21 07/10/23 Unknown Rx fenofibrate nanocrystallized 145 145 mg PO DAILY 90 days #90 tabs 06/27/21 07/10/23 11/05/21 Rx mg tablet (Tricor) diazepam 10 mg tablet 10 mg PO ONCE PRN anxiety #2 tabs 08/17/21 07/10/23 Unknown Rx melatonin 5 mg tablet 5 mg PO BEDTIME sleep 10/20/21 07/10/23 11/06/21 20:00 History naloxone 4 mg/actuation nasal 4 mg intranasal Q2M PRN opioid 01/30/22 07/10/23 Unknown Rx spray (Narcan) overdose #2 ea furosemide 40 mg tablet 40 mg PO BID PRN weight gain #180 04/03/22 07/10/23 Unknown Rx tabs potassium chloride 20 mEq 20 meq PO DAILY@0800 #90 tabs 04/03/22 07/10/23 Unknown Rx tablet,extended release lorazepam 1 mg tablet (Ativan) 1 mg PO BID PRN anxiety 1 day #2 04/18/22 07/10/23 Unknown Rx tabs AUTO - TITRATING CPAP 6-10CM #1 ea 01/17/23 07/10/23 Unknown Rx tizanidine 4 mg tablet 8 mg (2 x 4 mg) PO TID muscle 02/14/23 07/10/23 Unknown Rx spasticity 30 days #180 tabs quetiapine 25 mg tablet (Seroquel) 25 mg PO BID #180 tabs 04/09/23 07/10/23 Unknown Rx quetiapine 50 mg tablet (Seroquel) 50 mg PO .bedtime #90 tabs 04/09/23 07/10/23 Unknown Rx gabapentin 400 mg capsule 800 mg (2 x 400 mg) PO TID pain 06/19/23 07/10/23 Unknown Rx 90 days #540 caps morphine 15 mg immediate release 15 mg PO BID PRN pain 15 days #30 06/19/23 07/10/23 Unknown Rx tablet tabs pantoprazole 40 mg tablet,delayed See Rx Instructions .Route 06/21/23 07/10/23 Unknown Rx release .COMPLEX #90 tabs cefdinir 300 mg capsule 300 mg PO BID 5 days #10 caps 07/12/23 Unknown Rx Allergies Allergy/AdvReac Type Severity Reaction Status Date / Time pregabalin [From Lyrica] Allergy Intermediate ADR-Halluci Verified 07/13/23 21:12 nating pineapple Allergy Unknown ALGY-Anaphy Verified 07/13/23 21:12 laxis levothyroxine sodium AdvReac Severe ADR-Halluci Verified 07/13/23 21:12 [From Euthyrox] nating PFSH Acute 2 PFSH: Medical History Nicotine dependence, chewing tobacco, uncomplicated Atherosclerosis of coronary artery Chest pain Psychiatric care Abnormal stress test COVID-19 History of colon polyps History of CVA (cerebrovascular accident) 2005 --left-sided weakness Nephrolithiasis Acute bronchitis Congestive heart failure Chronic low back pain Dizziness Major depressive disorder, recurrent, moderate Anxiety with somatic features Chronic neck pain History of [place] (myocardial infarction) History of TIA (transient ischemic attack) Left ventricular hypertrophy Hypertriglyceridemia MRSA (methicillin resistant Staphylococcus aureus) Bright red rectal bleeding Internal hemorrhoids Diastolic heart failure Hypothyroidism Essential (primary) hypertension Surgical History H/O esophagogastroduodenoscopy (05/10/20) History of colonoscopy 12/2014 --small tubular adenoma, limited diverticulosis 02/2018 --small internal hemorrhoids S/P appendectomy S/P cholecystectomy S/P hernia repair ventral with mesh x 2 H/O neck surgery x 5 ( some of those were for a postop MRSA infection ) Family History Mother Congestive heart failure (CHF) Thyroid disease Sister Thyroid disease Father Atrial fibrillation Brother Heart disease HX STENTS Other CAD (coronary artery disease) Diabetes Social History Smoking and tobacco/nicotine status: former use of tobacco/nicotine Second hand smoke exposure: Yes Alcohol intake: never Substance/Drug Use: never Lives independently: Yes Household members: spouse Marital status: Current occupational status: disabled Do you think of yourself as: Straight/Heterosexual Current gender identity: Male Vitals/I&O/Wt Last Vital Signs Temp 98.6 F 07/13/23 21:08 Pulse 59 L 07/14/23 01:08 Resp 18 07/14/23 01:00 BP 162/107 07/14/23 01:08 Pulse Ox 93 07/14/23 01:08 O2 Del Method Room Air 07/14/23 01:08 07/13/23 07/13/23 07/14/23 14:59 22:59 06:59 Intake Total 2049 Balance 2049 Weight last 48 hrs Weight 99.79 kg Physical Exam 2 Narrative: General: Patient is awake and alert. Head: Normocephalic. Atraumatic. EOM intact. Dry mucous membranes. Neck: No JVD. Cardiovascular: RRR. No gallops. No murmurs. No peripheral edema. Lungs: Clear to auscultation, no use of accessory muscles, no crackles or wheezes. Skin: No jaundice. No rashes. Abdomen: Normal bowel sounds, abdomen soft and nontender. Rectal: Rectal exam not performed since no symptoms indicated blood loss. Extremities: No cyanosis or clubbing. Musculoskeletal: No swollen or erythematous joints. Neurological: Moves all 4 extremities. No myoclonus. Data 07/13/23 22:25 07/13/23 22:25 A&P Assessment and plan (1) Intractable nausea and vomiting: Intractable nausea and vomiting Failed oral challenge in ED Suspect etiology secondary to gastroenteritis and opiate withdrawal Start IV fluids N.p.o. IV Antiemetics IV PPI (2) Leukocytosis: Leukocytosis is very mild, suspect stress-induced Diagnosed with UTI on 07/11, however UA only mildly abnormal then Repeat UA largely unremarkable Hold antibiotics (3) Chronic prescription opiate use: Patient on chronic morphine, has not been able to take Suspect opiate withdrawal IV morphine as needed Clonidine as needed Supportive care (4) Anxiety: Patient on chronic benzodiazepines May be component of benzo withdrawal Rotate IV Ativan as needed (5) Hyponatremia: Hyponatremia associated with hypochloremia Suspect hypovolemia given recurrent projectile vomiting IV fluids as above Trend labs Plan DVT prophylaxis: Lovenox CODE STATUS: Full code Attestations 2 Medical Necessity Statement*: Patient presents with intractable nausea and vomiting suspect secondary to possible gastroenteritis with component of opiate/benzodiazepine withdrawal with expected hospitalization not to cross 2 midnights for IV fluids, symptomatology control and supportive care. Coding Level of Care Code Acute Code for Chg Fwd Diagnoses Intractable nausea and vomiting R11.2 Leukocytosis D72.829 Chronic prescription opiate use Z79.891 Anxiety F41.9 Hyponatremia E87.1
--- NOTE | 2023-07-14 05:02 | PC.NURSE ---
Report was called to Alayna TRAN on Med-Surg. All questions and concerns were addressed at time of report.
[2023-07-14] MEDS: enoxaparin 40 mg/0.4 mL Syringe SUBCUT (05:28)
[2023-07-14] MEDS: pantoprazole 40 mg SDV IVP ×2 (05:28→17:13)
[2023-07-14] MEDS: hyDRALAzine 20 mg/mL INJ 1 mL 10 MG IVP (05:29)
[2023-07-14] MEDS: dextrose 5%-sod chloride 0.9% 1,000 ML 125 ML IV (05:30)
[2023-07-14 05:38] LABS: Procalcitonin 0.05 ng/mL (0-0.5)
[2023-07-14] MEDS: morphine 4 mg/mL SDV 1 mL 6 MG IVP ×2 (05:43→10:13)
--- NOTE | 2023-07-14 07:44 | ECG_ITS ---
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 Measurements Intervals [place] Rate: 63 P: 48 [place]: 157 QRS: 30 QRSD: 92 T: 55 QT: 390 QTc: 402 Interpretive Statements SINUS RHYTHM POSSIBLE ANTERIOR MYOCARDIAL INFARCTION , OF INDETERMINATE AGE [30 ms Q WAVE IN V3/V4, OR R < 0.2 mV IN V4] Compared to ECG 07/12/2023 17:35:38 Myocardial infarct finding now present Electronically Signed On 07-14-2023 12:40:18 CDT by Eduardo Wallace M.D. [id number]
[2023-07-14 09:39] LABS: Lactic Acid level (Lactate) 1.9 mmol/L (0.5-2.2)
--- NOTE | 2023-07-14 10:52 | PC.PHAR ---
pt states he takes care of his own medications-pt states he got one dose of cefdinir 300mg rx filled 07/13/23 5d/s 300mg bid-pt states he no longer takes tricor 145mg daily -pt states he just restarted taking kcl 20meq daily ext shows last filled 07/14/23 90d/s-
--- NOTE | 2023-07-14 13:38 | PM.MISC ---
Miscellaneous Note Note: seen today says nausea is better would like to try clear liquid will advance diet as tolerated.
[2023-07-14] MEDS: LORazepam 2 mg/mL INJ 1 mL 1 MG IVP (18:24)
--- NOTE | 2023-07-14 18:45 | CTR_ITS ---
PROCEDURE INFORMATION: Exam: CT Head Without Contrast Exam date and time: 07/14/2023 8:13 PM Age: 57 years old Clinical indication: Pain; Headache; Patient HX: C/O RUFF TECHNIQUE: Imaging protocol: Computed tomography of the head without contrast. Radiation optimization: All CT scans at this facility use at least one of these dose optimization techniques: automated exposure control; mA and/or kV adjustment per patient size (includes targeted exams where dose is matched to clinical indication); or iterative reconstruction. COMPARISON: CT head wo con* [id number] 07/12/2023 6:10 PM RADIATION DOSE METRICS: Total DLP (mGy-cm): 1110.35 FINDINGS: Brain: The brain is unremarkable. There is no mass effect or significant white matter disease. There is no acute intracranial hemorrhage. Cerebral ventricles: There is no significant ventricular dilation. The basal cisterns are unremarkable. Paranasal sinuses: Mild mucosal thickening in left sphenoid and left frontal sinus. There is no fluid in the paranasal sinuses to suggest acute sinusitis. Mastoid air cells: The mastoid air cells are clear. Orbital cavities: Mild bilateral proptosis. Orbital contents are unremarkable. Bones: The calvarium is intact. Soft tissues: The visible extracranial soft tissues are unremarkable. CT/CT head wo con* [id number] IMPRESSION: 1. No acute intracranial abnormality. 2. Mild bilateral proptosis. No visible intraorbital abnormality.
--- NOTE | 2023-07-14 20:47 | ECG_ITS ---
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 Measurements Intervals [place] Rate: 68 P: 42 [place]: 155 QRS: 49 QRSD: 88 T: 52 QT: 377 QTc: 403 Interpretive Statements SINUS RHYTHM Compared to ECG 07/14/2023 07:47:52 Myocardial infarct finding no longer present Electronically Signed On 07-15-2023 10:57:48 CDT by Eduardo Wallace M.D. [id number]
[2023-07-14] MEDS: quetiapine 25 mg Tablet 50 MG PO (20:54)
[2023-07-14 22:07] LABS: Troponin(5th) Baseline 10 ng/L (0-15)
[2023-07-15] VITALS (7 sets, daily range): BP systolic 121–190; BP diastolic 73–99; PULSE 71–82; RESP 17–19; TEMP 36.7–36.9; O2SAT 94–98
--- NOTE | 2023-07-15 00:47 | ECG_ITS ---
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 Measurements Intervals [place] Rate: 63 P: 48 [place]: 159 QRS: 46 QRSD: 107 T: 47 QT: 385 QTc: 396 Interpretive Statements SINUS RHYTHM Compared to ECG 07/14/2023 20:49:21 No significant changes Electronically Signed On 07-15-2023 10:57:28 CDT by Eduardo Wallace M.D. [id number]
[2023-07-15] MEDS: LORazepam 1 mg Tablet PO (03:16)
[2023-07-15] MEDS: morphine 4 mg/mL SDV 1 mL 2 MG IVP ×2 (03:57→11:44)
[2023-07-15 04:01] LABS: Basophils % 0.4 %; Eosinophils # 0.2 10^3/uL (0.0-0.8); Eosinophils % 1.4 %; Hematocrit 43.6 % (37-53); Lymphocytes % 17.8 %; Mean Corpuscular HGB Conc 32.8 g/dL (30-55); Mean Corpuscular Hemoglobin 29.3 pg (27-33); Mean Corpuscular Volume 89.3 fl (82-101); Mean Platelet Volume 10.5 fL (7.4-10.4); Monocytes # 1.1 10^3/uL (0.2-0.9); Monocytes % 9.9 %; Neutrophils # 7.72 10^3/uL (1.8-7.7); Nucleated Red Blood Cells % 0 %; Platelet Count 250 10^3/cmm (157-399); Red Blood Count 4.88 10^6/uL (3.85-5.65); Red Cell Distribution Width 12.5 % (12.1-15.1); White Blood Count 11.01 10^3/uL (3.29-11.43)
[2023-07-15 04:39] LABS: Troponin 5 6HR 10.01 ng/L (0-15); Troponin 5 6HR Delta 0.01 ng/L (0-12)
[2023-07-15 04:42] LABS: Albumin Level 4.1 g/dL (3.5-5.2); Alkaline Phosphatase 63 U/L (40-130); Blood Urea Nitrogen 7 mg/dL (6-20); Calcium 9.1 mg/dL (8.5-10.5); Carbon Dioxide 20 mmol/L (22-29); Chloride 98 mmol/L (98-107); Creatinine Clr Calc Pharmacy 137.8656; Globulin 2.9 g/dL (1.3-4.6); Glomerular Filtration Rate 116.2 mL/min (90-130); Glucose 123 mg/dL (65-115); Magnesium 1.9 mg/dL (1.7-2.3); Osmolality Calculated 273 mOsm/kg (285-295); Phosphorus 3.4 mg/dL (2.5-4.5); Sodium 132 mmol/L (136-145); Total Bilirubin 0.6 mg/dL (0.15-1.2)
[2023-07-15 04:56] LABS: Alanine Aminotransferase 17 U/L (0-41); Aspartate Amino Transferase 24 U/L (0-40)
[2023-07-15] MEDS: pantoprazole 40 mg SDV IVP (05:12)
[2023-07-15] MEDS: enoxaparin 40 mg/0.4 mL Syringe SUBCUT (05:12)
[2023-07-15] MEDS: dextrose 5%-sod chloride 0.9% 1,000 ML 100 ML IV (06:21)
[2023-07-15 09:20] LABS: Estmated Average Glucose 131; Hemoglobin A1C 6.2 % (4.0-6.0)
[2023-07-15] MEDS: LORazepam 2 mg/mL INJ 10 mL MDV 1 MG IVP (11:44)
--- NOTE | 2023-07-15 12:30 | PM.DCS ---
Discharge Providers Date of Admission: 07/14/23 05:14 Date of Discharge: July 15, 2023 Attending Provider at Admission: Ant Vasquez MD Attending Provider at Discharge: Farhat Dennis MD Primary Care Provider: Qi Muhammad DO Diagnoses at Discharge Discharge Diagnosis (1) Intractable nausea and vomiting: Status: Acute (2) Leukocytosis: Status: Acute (3) Chronic prescription opiate use: Status: Acute (4) Anxiety: Status: Acute (5) Hyponatremia: Status: Acute Reason for Visit Reason for Visit: n/v Hospital Course Hospital Course 57-year male who was admitted to the hospital for management evaluation of recurrent nausea vomiting, he remained hemodynamically stable, required IV fluid hydration, started tolerating diet, no recurrent nausea vomiting in the hospital, CT abdomen pelvis is unremarkable, hyponatremia, hypokalemia has been replenished. His hemoglobin A1c is 6.2. Patient likely has a gastroenteritis which improved with conservative management I would not recommend antibiotics at the time of discharge. Physical Exam Narrative: Nonfocal neuroexam Abdomen is soft Tolerating diet Hemodynamically stable Sign of dehydration improved Discharge Data Studies Completed and Pending Completed Studies During Hospitalization Category Date Time Status CT abdomen pelvis w con* [id number] Urgent Cat Scan 07/13/23 22:[address] head wo con* [id number] Routine Cat Scan 07/14/23 18:45 Completed Radiology Impressions Abdomen/Pelvis CT 07/13/23 22:54 IMPRESSION: 1. No bowel obstruction or inflammatory process associated with the bowel. 2. No free air or significant free fluid in the abdomen or pelvis. 3. The appendix is not visualized but there are no secondary signs of acute appendicitis. Head CT 07/14/23 18:45 IMPRESSION: 1. No acute intracranial abnormality. 2. Mild bilateral proptosis. No visible intraorbital abnormality. Laboratory Results WBC 11.01 10^3/uL (3.29-11.43) 07/15/23 03:54 RBC 4.88 10^6/uL (3.85-5.65) 07/15/23 03:54 Hgb 14.30 g/dL (11.27-16.99) 07/15/23 03:54 Hct 43.6 % (37-53) 07/15/23 03:54 MCV 89.3 fl (82-101) 07/15/23 03:54 MCH 29.3 pg (27-33) 07/15/23 03:54 MCHC 32.8 g/dL (30-55) 07/15/23 03:54 RDW 12.5 % (12.1-15.1) 07/15/23 03:54 Plt Count 250 10^3/cmm (157-399) 07/15/23 03:54 MPV 10.5 fL (7.4-10.4) H 07/15/23 03:54 Neut % (Auto) 70.0 % 07/15/23 03:54 Lymph % (Auto) 17.8 % 07/15/23 03:54 [place] % (Auto) 9.9 % 07/15/23 03:54 Eos % (Auto) 1.4 % 07/15/23 03:54 Baso % (Auto) 0.4 % 07/15/23 03:54 Neut # (Auto) 7.72 10^3/uL (1.8-7.7) H 07/15/23 03:54 Lymph # (Auto) 2.0 10^3/uL (0.8-4.8) 07/15/23 03:54 [place] # (Auto) 1.1 10^3/uL (0.2-0.9) H 07/15/23 03:54 Eos # (Auto) 0.2 10^3/uL (0.0-0.8) 07/15/23 03:54 Baso # (Auto) 0.0 10^3/uL (0.0-0.1) 07/15/23 03:54 Nucleated RBC % (auto) 0 % 07/15/23 03:54 Nucleated RBCs # 0.0 /100WBC 07/15/23 03:54 Sodium 132 mmol/L (136-145) L 07/15/23 03:54 Potassium 4.0 mmol/L (3.5-5.1) 07/15/23 03:54 Chloride 98 mmol/L (98-107) 07/15/23 03:54 Carbon Dioxide 20 mmol/L (22-29) L 07/15/23 03:54 Anion Gap 17.0 (5-19) 07/15/23 03:54 BUN 7 mg/dL (6-20) 07/15/23 03:54 Creatinine 0.7 mg/dL (0.7-1.2) 07/15/23 03:54 GFR Calculation 116.2 mL/min (90-130) 07/15/23 03:54 Glucose 123 mg/dL (65-115) H 07/15/23 03:54 Estimat Average Glucose 131 07/15/23 03:54 Hemoglobin A1c 6.2 % (4.0-6.0) H 07/15/23 03:54 Calculated Osmolality 273 mOsm/kg (285-295) L 07/15/23 03:54 Lactic Acid 2.2 mmol/L (0.5-2.2) 07/13/23 23:03 Lactic Acid (Sepsis) 1.9 mmol/L (0.5-2.2) 07/14/23 09:08 Calcium 9.1 mg/dL (8.5-10.5) 07/15/23 03:54 Phosphorus 3.4 mg/dL (2.5-4.5) 07/15/23 03:54 Magnesium 1.9 mg/dL (1.7-2.3) 07/15/23 03:54 Total Bilirubin 0.6 mg/dL (0.15-1.2) 07/15/23 03:54 AST 24 U/L (0-40) 07/15/23 03:54 ALT 17 U/L (0-41) 07/15/23 03:54 Alkaline Phosphatase 63 U/L (40-130) 07/15/23 03:54 Troponin T Baseline 10 ng/L (0-15) 07/14/23 21:39 Troponin T 120 Minute 9.30 ng/L (0-15) 07/15/23 00:01 Delta Troponin T -0.70 ABS# (0-10) L 07/15/23 00:01 Troponin T Hi Sens 6Hr 10.01 ng/L (0-15) 07/15/23 03:54 Troponin T Hi Sens 6Hr Delta 0.01 ng/L (0-12) 07/15/23 03:54 C-Reactive Protein 3.0 mg/L (0.0-4.9) 07/13/23 22:25 Total Protein 7.0 g/dL (6.6-8.7) 07/15/23 03:54 Albumin 4.1 g/dL (3.5-5.2) 07/15/23 03:54 Globulin 2.9 g/dL (1.3-4.6) 07/15/23 03:54 Lipase 20 U/L (13-60) 07/13/23 22:25 Procalcitonin 0.05 ng/mL (0-0.5) 07/14/23 Unknown Urine Color Yellow (Yellow) 07/14/23 00:44 Urine Appearance Clear (CLEAR) 07/14/23 00:44 Urine pH 8 (5-7) H 07/14/23 00:44 Ur Specific [place] 1.010 (1.005-1.030) 07/14/23 00:44 Urine Protein Neg (Negative) 07/14/23 00:44 Urine Glucose (UA) Norm (Normal) 07/14/23 00:44 Urine Ketones Negative (Negative) 07/14/23 00:44 Urine Blood Neg (Negative) 07/14/23 00:44 Urine Nitrate Negative (Negative) 07/14/23 00:44 Urine Bilirubin Neg (Negative) 07/14/23 00:44 Prot Sulfosalicylic Acd Negative (Negative) 07/14/23 00:44 Urine Urobilinogen Neg mg/dL (Negative) 07/14/23 00:44 Ur Leukocyte Esterase Negative (Negative) 07/14/23 00:44 Vitals Last Vital Signs Temp 98.3 F 07/15/23 11:17 Pulse 71 07/15/23 11:17 Resp 17 07/15/23 11:44 BP 152/89 07/15/23 11:17 Pulse Ox 96 07/15/23 11:17 O2 Del Method Room Air 07/15/23 11:17 Discharge Plan Discharge Patient Disposition: Home Condition: Fair Prescriptions: New ondansetron 4 mg tablet,disintegrating 4 mg PO Q8H PRN (Reason: nausea and vomiting) Qty: 10 0RF Continued melatonin 5 mg tablet 10 mg PO BEDTIME albuterol sulfate 90 mcg/actuation HFA aerosol inhaler 2 inh INHALATION Q4H PRN (Reason: shortness of breath or wheezing) Qty: 8.5 1RF Rx Instructions: 340 B medications (DME) CPAP supplies See Rx Instructions .Route .MEDSUPPLY Qty: 1 0RF Rx Instructions: Mask, tubing, filters. (DME) blood-glucose meter [[employer] Ultra2 Meter] [facility] See Rx Instructions .Route Qty: 1 0RF Rx Instructions: to use to check blood sugar once daily (DME) OneTouch Ultra Test Strip See Rx Instructions .Route Qty: 100 3RF Rx Instructions: to check blood sugar once daily in onetouch meter supply tizanidine 4 mg tablet 8 mg PO TID 30 Days Qty: 180 0RF gabapentin 400 mg capsule 800 mg PO TID 90 Days Qty: 540 0RF naloxone [Narcan] 4 mg/actuation spray,non-aerosol 4 mg intranasal Q2M PRN (Reason: opioid overdose) Qty: 2 3RF Rx Instructions: spray 1 dose into 1 nostril alternate nostrils w ea dose until help arrives lorazepam [Ativan] 1 mg tablet 1 mg PO BID PRN (Reason: anxiety) 1 Days Qty: 2 0RF Rx Instructions: Take one tablet 60 minutes prior to procedure, take second if needed. quetiapine [Seroquel] 25 mg tablet 25 mg PO BID Qty: 180 2RF quetiapine [Seroquel] 50 mg tablet 50 mg PO .bedtime Qty: 90 2RF Rx Instructions: takes with 25mg to =75mg (DME) back brace [Back Support S/M] Misc See Rx Instructions .Route Qty: 1 0RF Rx Instructions: As directed (DME) [facility] See Rx Instructions .ROUTE .MEDSUPPLY Qty: 1 0RF Rx Instructions: As directed potassium chloride 20 mEq tablet extended release 20 meq PO DAILY@0800 Qty: 90 3RF furosemide 40 mg tablet 40 mg PO BID PRN (Reason: weight gain) Qty: 180 3RF (DME) AUTO - TITRATING CPAP 6-10CM See Rx Instructions .Route .MEDSUPPLY Qty: 1 0RF Rx Instructions: As directed cefdinir 300 mg capsule 300 mg PO BID 5 Days Qty: 10 0RF Rx Instructions: for 5 days (rx filled 07/13/23) pantoprazole 40 mg tablet,delayed release (DR/EC) 40 mg PO QAM Nitrostat 0.4 mg Tablet, Sublingual 0.4 mg SUBLINGUAL Q5M PRN (Reason: Chest Pain) Rx Instructions: do not exceed 3 doses per episode morphine 15 mg tablet 15 mg PO BID PRN (Reason: Pain) Vitamin D3 125 mcg (5,000 unit) Tablet 5,000 unit PO DAILY Discharge Orders: Discharge Order (Routine); Ordered 07/15/23 Ordered By: Farhat Dennis Referrals: Qi Muhammad DO [Primary Care Provider] - (We have notified your physician's clinic of the need for a follow-up appointment to be scheduled. If you have not heard from them within the next 2 business days, please call them directly. ) Discharge Diet: GI Soft Discharge Activity: Increase activity as tolerated Patient Instructions: Opioid Safety Discharge Attestations Time Spent in Discharge Care*: greater than 30 min Status at Discharge: Cognitive status at discharge: cognitively intact, Behavioral status at discharge: cooperative, Quality Metrics Clinical Quality Measures [ No reported AMI, CVA or VTE this stay] Coding Level of Care Code Acute Code for Chg Fwd Diagnoses Intractable nausea and vomiting R11.2 Leukocytosis D72.829 Chronic prescription opiate use Z79.891 Anxiety F41.9 Hyponatremia E87.1
[2023-07-15 13:23] LABS: Thyroid Stimulating Hormone 10.33 uIU/mL (0.27-4.20)
== END 2023-07-15 13:59 | disposition home or self-care (01) ==
LOC: ER 07-14 00:29 → MEDSURG 07-14 05:29
PROVIDERS: Internal Medicine; Admitting Provider Internal Medicine; Emergency Provider Emergency Medicine; PCP Family Medicine; Visit Provider Internal Medicine
DX: R11.2 Nausea with vomiting, unspecified (principal); D72.829 Elevated white blood cell count, unspecified; Z79.891 Long term (current) use of opiate analgesic; F41.9 Anxiety disorder, unspecified; E87.1 Hypo-osmolality and hyponatremia; Z86.73 Personal history of transient ischemic attack (TIA), and cerebral infarction without residual deficits; I50.9 Heart failure, unspecified; I25.2 Old myocardial infarction; I10 Essential (primary) hypertension; Z86.14 Personal history of Methicillin resistant Staphylococcus aureus infection; Z87.891 Personal history of nicotine dependence; G89.29 Other chronic pain
CPT/HCPCS: 36415; 70450; 74177; 80053; 81003; 83036; 83605; 83690; 83735; 84100; 84145; 84443; 84484; 85025; 86140; 93005; 96361; 96365; 96372; 96375; 96376; 99285; C9113; G0378; J0360; J0696; J1650; J2060; J2270; J2405; J7030; J7042; Q9967

== ENCOUNTER → 2023-07-22 09:53 | Outpatient (BNVA) | payer MEDICARE, SELFPAY | PROVIDERS: PCP Family Medicine; Visit Provider Anesthesiology Pain Medicine | DX: G89.29 Other chronic pain; M96.1 Postlaminectomy syndrome, not elsewhere classified; M54.42 Lumbago with sciatica, left side; M47.22 Other spondylosis with radiculopathy, cervical region; G56.92 Unspecified mononeuropathy of left upper limb; M48.061 Spinal stenosis, lumbar region without neurogenic claudication; M48.07 Spinal stenosis, lumbosacral region; M51.26 Other intervertebral disc displacement, lumbar region; Z79.899 Other long term (current) drug therapy | CPT/HCPCS: 99214 ==

== ENCOUNTER → 2023-07-23 16:17 | Outpatient (BNVA) | payer MEDICARE, SELFPAY | PROVIDERS: PCP Family Medicine; Visit Provider Specialist | DX: G62.89 Other specified polyneuropathies; E11.9 Type 2 diabetes mellitus without complications | CPT/HCPCS: 95909; 95910 ==

== ENCOUNTER → 2023-08-16 09:17 | Outpatient (BNVA) | payer MEDICARE, SELFPAY | PROVIDERS: PCP Family Medicine; Visit Provider Family Medicine | DX: I50.30 Unspecified diastolic (congestive) heart failure (principal); E03.9 Hypothyroidism, unspecified; Z86.39 Personal history of other endocrine, nutritional and metabolic disease; Z79.899 Other long term (current) drug therapy; F33.1 Major depressive disorder, recurrent, moderate; I10 Essential (primary) hypertension; E78.1 Pure hyperglyceridemia; K29.50 Unspecified chronic gastritis without bleeding; G89.4 Chronic pain syndrome; F17.220 Nicotine dependence, chewing tobacco, uncomplicated; R73.03 Prediabetes | CPT/HCPCS: 84439; 84443; 86376 ==

== ENCOUNTER → 2023-08-22 09:30 | Outpatient (BNVA) | payer MEDICARE, SELFPAY | PROVIDERS: PCP Family Medicine; Visit Provider Anesthesiology Pain Medicine | DX: G89.29 Other chronic pain; M96.1 Postlaminectomy syndrome, not elsewhere classified; M54.42 Lumbago with sciatica, left side; M47.22 Other spondylosis with radiculopathy, cervical region; G56.92 Unspecified mononeuropathy of left upper limb; Z79.899 Other long term (current) drug therapy | CPT/HCPCS: 99215 ==

== ENCOUNTER 2023-08-29 12:33 | Emergency (ER) | payer MEDICARE, SELFPAY ==
[2023-08-29 12:37] VITALS: BP 153/107; PULSE 68; RESP 18; TEMP 36.7; O2SAT 96; BMI 31.1
--- NOTE | 2023-08-29 12:46 | CTR_ITS ---
PROCEDURE INFORMATION: Exam: CT Lumbar Spine Without Contrast Exam date and time: 08/29/2023 2:02 PM Age: 58 years old Clinical indication: Injury or trauma; Fall; Blunt trauma (contusions or hematomas) TECHNIQUE: Imaging protocol: Computed tomography of the lumbar spine without contrast. Radiation optimization: All CT scans at this facility use at least one of these dose optimization techniques: automated exposure control; mA and/or kV adjustment per patient size (includes targeted exams where dose is matched to clinical indication); or iterative reconstruction. COMPARISON: MR lumbar spine wo con* [id number] 04/25/2022 12:34 PM RADIATION DOSE METRICS: Total DLP (mGy-cm): 890.4 FINDINGS: Bones/joints: Disc space narrowing L3-L4. The the L4-L5 nucleus pulposis has herniated into the L5 vertebral body, the appearance was also seen on 04/24/2022. Soft tissues: Unremarkable. Other findings: Moderate demineralization. Mild spurring at all levels. CT/CT lumbar spine wo con* [id number] IMPRESSION: No acute abnormality.
--- NOTE | 2023-08-29 13:00 | W.ED.BACK ---
HPI - Back Pain/Injury General: Chief Complaint: Back Pain/Injury Stated Complaint: fall Time Seen by Provider: 08/29/23 12:35 Source: patient Mode of arrival: ambulatory Limitations: no limitations History of Present Illness: 58-year-old male has a history of chronic back pain he sees pain management supposed to follow-up with spine surgery states that he had fell out of his truck on Saturday and landed on his buttock states since then he has been having severe low back pain states the pain is a 10 out of 10 denies any bowel or bladder incontinence states is much worse when he tries to walk. Associated symptoms: Deny abdominal pain, chills, fever(s), nausea or vomiting Review of Systems Const: Denies: fever(s), chills, body aches or change in appetite ENMT: Denies: throat pain or dental pain Card: Denies: chest pain Resp: Denies: dyspnea GI: Denies: abdominal pain, nausea, vomiting or diarrhea Musc: Reports: back pain; Denies: neck pain Skin/Breast: Denies: rash Neuro: Denies: headache(s) PFSH ED PFSH: Medical History Leukocytosis Hyponatremia Chronic prescription opiate use Intractable nausea and vomiting Near syncope Nicotine dependence, chewing tobacco, uncomplicated Atherosclerosis of coronary artery Chest pain Psychiatric care Abnormal stress test COVID-19 History of colon polyps History of CVA (cerebrovascular accident) 2005 --left-sided weakness Nephrolithiasis Acute bronchitis Congestive heart failure Chronic low back pain Dizziness Major depressive disorder, recurrent, moderate Chronic neck pain History of FL (myocardial infarction) History of TIA (transient ischemic attack) Left ventricular hypertrophy Hypertriglyceridemia MRSA (methicillin resistant Staphylococcus aureus) Bright red rectal bleeding Internal hemorrhoids Diastolic heart failure Hypothyroidism Essential (primary) hypertension Surgical History H/O esophagogastroduodenoscopy (05/10/20) History of colonoscopy 12/2014 --small tubular adenoma, limited diverticulosis 02/2018 --small internal hemorrhoids S/P appendectomy S/P cholecystectomy S/P hernia repair ventral with mesh x 2 H/O neck surgery x 5 ( some of those were for a postop MRSA infection ) Family History Mother Congestive heart failure (CHF) Thyroid disease Sister Thyroid disease Father Atrial fibrillation Brother Heart disease HX STENTS Other CAD (coronary artery disease) Diabetes Social History Smoking and tobacco/nicotine status: former use of tobacco/nicotine Second hand smoke exposure: Yes Alcohol intake: never Substance/Drug Use: never Lives independently: Yes Household members: spouse Marital status: Current occupational status: disabled Do you think of yourself as: Straight/Heterosexual Current gender identity: Male Physical Exam Const: COMMON NORMALS: no acute distress, patient oriented x3 and healthy appearing HENMT: COMMON NORMALS: normocephalic and atraumatic HEAD & SCALP: normocephalic and atraumatic Neck/C-Spine: COMMON NORMALS: full ROM and supple Chest: COMMONS NORMALS: normal inspection of the chest Resp: COMMON NORMALS: normal respiratory effort GI: COMMON NORMALS: Normal to inspection, nondistended, normoactive bowel sounds present, Soft to palpation, non-tender and no masses PALPATION: Yes Soft to palpation Back/Pelvis: OTHER: Tenderness to low back no saddle anesthesia Extremity: COMMON NORMALS: normal to inspection and full ROM Neuro: COMMON NORMALS: patient oriented x3, moves all extremities and no focal motor deficits Psych: COMMON NORMALS: mental status grossly normal, Normal thought process present and cooperative THOUGHT PROCESS: Normal thought process present Skin: COMMON NORMALS: no rashes or lesions noted and no wounds GENERAL SKIN EXAM: no rashes or lesions noted Course Vital Signs: Vital signs: Vital Signs Temperature 98.0 F 08/29/23 12:37 Pulse Rate 62 08/29/23 15:00 Respiratory Rate 16 08/29/23 14:33 Blood Pressure 121/66 08/29/23 15:00 Pulse Oximetry 96 08/29/23 15:00 Oxygen Delivery Me thod Room Air 08/29/23 15:00 MDM - Back Pain/Injury Medical Decision Making Patient presents here with back pain after a fall imaging here is normal he is well-appearing here no signs of cord compression he stable for discharge follow-up with PCP return if worsening Medical Records I reviewed the patient's medical records. Labs Radiology Impressions Lumbar Spine CT 08/29/23 12:46 IMPRESSION: No acute abnormality. All radiology interpretation(s) finalized by discharge Discharge Plan Discharge Patient Disposition: Home Clinical Impression: Low back pain Condition: Stable Prescriptions: New methocarbamol 750 mg tablet 750 mg PO Q6H PRN (Reason: spasms) Qty: 20 0RF Naprosyn 500 mg tablet 500 mg PO BID PRN (Reason: pain) Qty: 20 0RF No Action melatonin 5 mg tablet 10 mg PO BEDTIME albuterol sulfate 90 mcg/actuation HFA aerosol inhaler 2 inh INHALATION Q4H PRN (Reason: shortness of breath or wheezing) Qty: 8.5 1RF Rx Instructions: 340 B medications (DME) CPAP supplies See Rx Instructions .Route .MEDSUPPLY Qty: 1 0RF Rx Instructions: Mask, tubing, filters. (DME) blood-glucose meter [OneTouch Ultra2 Meter] Misc See Rx Instructions .Route Qty: 1 0RF Rx Instructions: to use to check blood sugar once daily (DME) OneTouch Ultra Test Strip See Rx Instructions .Route Qty: 100 3RF Rx Instructions: to check blood sugar once daily in onetouch meter supply tizanidine 4 mg tablet 8 mg PO TID 30 Days Qty: 180 0RF gabapentin 400 mg capsule 800 mg PO TID 90 Days Qty: 540 0RF quetiapine [Seroquel] 100 mg tablet 100 mg PO BEDTIME Qty: 30 3RF Rx Instructions: Take one tablet at bedtime quetiapine [Seroquel] 50 mg tablet 50 mg PO BID@08,16 Qty: 60 2RF Rx Instructions: Take one tablet at 8 am and 4 pm losartan 50 mg tablet 50 mg PO DAILY Qty: 30 0RF atorvastatin [Lipitor] 40 mg tablet 40 mg PO DAILY Qty: 90 1RF morphine 15 mg tablet 15 mg PO BID PRN (Reason: Pain) 30 Days Qty: 20 0RF naloxone [Narcan] 4 mg/actuation spray,non-aerosol 4 mg intranasal Q2M PRN (Reason: opioid overdose) Qty: 2 3RF Rx Instructions: spray 1 dose into 1 nostril alternate nostrils w ea dose until help arrives (DME) back brace [Back Support S/M] Misc See Rx Instructions .Route Qty: 1 0RF Rx Instructions: As directed (DME) back brace Misc See Rx Instructions .ROUTE .MEDSUPPLY Qty: 1 0RF Rx Instructions: As directed potassium chloride 20 mEq tablet extended release 20 meq PO DAILY@0800 Qty: 90 3RF furosemide 40 mg tablet 40 mg PO BID PRN (Reason: weight gain) Qty: 180 3RF (DME) AUTO - TITRATING CPAP 6-10CM See Rx Instructions .Route .MEDSUPPLY Qty: 1 0RF Rx Instructions: As directed pantoprazole 40 mg tablet,delayed release (DR/EC) 40 mg PO QAM Nitrostat 0.4 mg Tablet, Sublingual 0.4 mg SUBLINGUAL Q5M PRN (Reason: Chest Pain) Rx Instructions: do not exceed 3 doses per episode Vitamin D3 125 mcg (5,000 unit) Tablet 5,000 unit PO DAILY ondansetron 4 mg tablet,disintegrating 4 mg PO Q8H PRN (Reason: nausea and vomiting) Qty: 10 0RF Discharge Orders: Discharge ED (Routine); Ordered 08/29/23 Ordered By: Carlota Arriaga Referrals: Alec Gabriel MD [Primary Care Provider] - 4-7 days Discharge Diet: Advance as tolerated Discharge Activity: Resume usual activity Patient Instructions: Back Pain (ED) Coding Level of Care Code ED [employer]
[2023-08-29] MEDS: methocarbamol 750 mg Tablet 1500 MG PO (13:02)
[2023-08-29] MEDS: morphine 4 mg/mL SDV 1 mL IM ×2 (13:03→15:06)
[2023-08-29] MEDS: dexamethasone 10 mg/mL INJ IM (13:04)
[2023-08-29 14:33] VITALS: BP 119/70; PULSE 67; RESP 16; O2SAT 96
[2023-08-29 15:00] VITALS: BP 121/66; PULSE 62; O2SAT 96
== END 2023-08-29 15:49 | disposition home or self-care (01) ==
PROVIDERS: Emergency Provider Emergency Medicine; PCP Family Medicine
DX: M54.50 Low back pain, unspecified (principal); Z87.891 Personal history of nicotine dependence; I25.10 Atherosclerotic heart disease of native coronary artery without angina pectoris; Z86.73 Personal history of transient ischemic attack (TIA), and cerebral infarction without residual deficits; I11.0 Hypertensive heart disease with heart failure; I50.9 Heart failure, unspecified; I25.2 Old myocardial infarction
CPT/HCPCS: 72131; 96372; 99284; J1100; J2270

== ENCOUNTER → 2023-09-19 14:05 | Outpatient (BNVA) | payer MEDICARE, SELFPAY | PROVIDERS: PCP Family Medicine; Visit Provider Orthopaedic Surgery | DX: M54.9 Dorsalgia, unspecified (principal); M48.062 Spinal stenosis, lumbar region with neurogenic claudication | CPT/HCPCS: 99214 ==

== ENCOUNTER 2023-09-30 17:03 | Emergency (ER) | payer MEDICARE, SELFPAY ==
[2023-09-30] VITALS (14 sets, daily range): BP systolic 157–189; BP diastolic 88–101; PULSE 59–96; RESP 18–20; TEMP 36.9; O2SAT 95–100; BMI 31.5
[2023-09-30 17:53] LABS: Basophils # 0.1 10^3/uL (0.0-0.1); Basophils % 0.5 %; Eosinophils # 0.1 10^3/uL (0.0-0.8); Hematocrit 43.2 % (37-53); Lymphocytes # 2.7 10^3/uL (0.8-4.8); Lymphocytes % 24.3 %; Mean Corpuscular HGB Conc 34.3 g/dL (30-55); Mean Corpuscular Hemoglobin 29.6 pg (27-33); Mean Corpuscular Volume 86.4 fl (82-101); Monocytes % 9.2 %; Neutrophils # 7.14 10^3/uL (1.8-7.7); Neutrophils % 64.8 %; Nucleated Red Blood Cells % 0 %; Platelet Count 322 10^3/cmm (157-399); Red Cell Distribution Width 12.8 % (12.1-15.1)
[2023-09-30 18:16] LABS: Alanine Aminotransferase 12 U/L (0-41); Albumin Level 4.8 g/dL (3.5-5.2); Alkaline Phosphatase 73 U/L (40-130); Anion Gap 17.8 (5-19); Aspartate Amino Transferase 13 U/L (0-40); Blood Urea Nitrogen 9 mg/dL (6-20); Calcium 9.4 mg/dL (8.5-10.5); Carbon Dioxide 24 mmol/L (22-29); Chloride 96 mmol/L (98-107); Globulin 3.2 g/dL (1.3-4.6); Glomerular Filtration Rate 99.3 mL/min (90-130); Glucose 126 mg/dL (65-115); Lipase 13 U/L (13-60); Osmolality Calculated 278 mOsm/kg (285-295); Potassium 3.8 mmol/L (3.5-5.1); Sodium 134 mmol/L (136-145); Total Bilirubin 0.7 mg/dL (0.15-1.2)
--- NOTE | 2023-09-30 18:43 | CTR_ITS ---
PROCEDURE INFORMATION: Exam: CT Abdomen And Pelvis With Contrast Exam date and time: 09/30/2023 8:37 PM Age: 58 years old Clinical indication: Abdominal pain; Acute; Prior surgery; Surgery date: 6+ months; Surgery type: Appy gb hernia; Additional info: Abd pain n/v, no appetite TECHNIQUE: Imaging protocol: Computed tomography of the abdomen and pelvis with contrast. Radiation optimization: All CT scans at this facility use at least one of these dose optimization techniques: automated exposure control; mA and/or kV adjustment per patient size (includes targeted exams where dose is matched to clinical indication); or iterative reconstruction. Contrast material: OMNI 350; Contrast volume: 100 ml; Contrast route: INTRAVENOUS (IV); COMPARISON: CT abdomen pelvis w con* [id number] 07/14/2023 12:07 AM RADIATION DOSE METRICS: Total DLP (mGy-cm): 889.83 FINDINGS: Liver: 1.0 cm hyperattenuating focus within hepatic segment 6 which may represent a small hemangioma. Gallbladder and biliary ducts: Status post cholecystectomy. Pancreas: Normal. No ductal dilation. Spleen: Normal. No splenomegaly. Adrenal glands: Normal. No mass. Kidneys and ureters: Small cyst within the lower pole of the left kidney. Stomach and bowel: Unremarkable. No obstruction. No mucosal thickening. Appendix: No evidence of appendicitis. Intraperitoneal space: Unremarkable. No free air. No significant fluid collection. Vasculature: Mild atherosclerotic calcifications. Lymph nodes: Unremarkable. No enlarged lymph nodes. Urinary bladder: Circumferential bladder wall thickening which may be secondary to chronic bladder outlet obstruction. Reproductive: Prostatic calcifications. The prostate measures up to 4.5 cm. Bones/joints: Unremarkable. No acute fracture. Soft tissues: Unremarkable. CT/CT abdomen pelvis w con* [id number] IMPRESSION: 1. Circumferential bladder wall thickening which may be secondary to chronic bladder outlet obstruction. Findings can be clinically correlated with cystitis if clinically indicated. 2. Otherwise no acute findings within the abdomen or pelvis. COMMENTS: Consistent with the [employer]'s Incidental Findings Committee white paper (J Am Wilbur Radiol 2018): Any incidental renal lesion less than 1 cm or classified as too small to characterize, or any incidental cystic renal lesion characterized as simple-appearing, is likely benign. No follow-up imaging is recommended for these lesions per consensus recommendations based on imaging criteria.
--- NOTE | 2023-09-30 18:53 | ED_ITS ---
HPI - Abdominal Pain 2 General: Chief Complaint: Abdominal Pain Stated Complaint: Stomach pain, bloody urination, dizzy Time Seen by Provider: 09/30/23 17:35 History of Present Illness: Patient presents to the ER with complaining of severe upper abdominal pain. Patient states he has had only doctors due to them leaving and insurance changes and has all of his medicine has been changed around. Patient thinks this is the cause of his abdominal pain. Patient's been unable to eat for the last 2 days and therefore he has not taken any of his medicine. Patient does have a history of GI bleeds. Patient has some blood on the toilet paper a few hours ago. Patient was seen at [facility] yesterday for this exact same thing and they just said he is on too much medicine. The doctor took him off his morphine and transitioning over to OxyContin. Took him off his Zanaflex and lowered his Neurontin dose from 803 times a day to 603 times a day just to list a few of his medicine changes. Patient sees Dr. Mckinney and is probably can have to have back surgery. Review of Systems 2 General: Reports: 10 or more systems reviewed and unremarkable except in HPI and below PFSH ED 2 PFSH: Medical History Leukocytosis Hyponatremia Chronic prescription opiate use Intractable nausea and vomiting Near syncope Nicotine dependence, chewing tobacco, uncomplicated Atherosclerosis of coronary artery Chest pain Psychiatric care Abnormal stress test COVID-19 History of colon polyps History of CVA (cerebrovascular accident) 2005 --left-sided weakness Nephrolithiasis Acute bronchitis Congestive heart failure Chronic low back pain Dizziness Major depressive disorder, recurrent, moderate Chronic neck pain History of [place] (myocardial infarction) History of TIA (transient ischemic attack) Left ventricular hypertrophy Hypertriglyceridemia MRSA (methicillin resistant Staphylococcus aureus) Bright red rectal bleeding Internal hemorrhoids Diastolic heart failure Hypothyroidism Essential (primary) hypertension Surgical History H/O esophagogastroduodenoscopy (05/10/20) History of colonoscopy 12/2014 --small tubular adenoma, limited diverticulosis 02/2018 --small internal hemorrhoids S/P appendectomy S/P cholecystectomy S/P hernia repair ventral with mesh x 2 H/O neck surgery x 5 ( some of those were for a postop MRSA infection ) Family History Mother Congestive heart failure (CHF) Thyroid disease Sister Thyroid disease Father Atrial fibrillation Brother Heart disease HX STENTS Other CAD (coronary artery disease) Diabetes Social History Smoking and tobacco/nicotine status: unknown if used tobacco/nicotine Second hand smoke exposure: Yes Alcohol intake: never Substance/Drug Use: never Lives independently: Yes Household members: spouse Marital status: Current occupational status: disabled Do you think of yourself as: Straight/Heterosexual Current gender identity: Male Physical Exam 2 Const: COMMON NORMALS: no acute distress, average body habitus, patient oriented x3, no limitations, healthy appearing, alert and well nourished HENMT: COMMON NORMALS: normocephalic, atraumatic, hearing grossly normal bilaterally, external ears normal, Normal external nose present and moist oral mucous membranes HEAD & SCALP: normocephalic and atraumatic NOSE: Normal external nose present EXTERNAL EAR: Yes external ears normal Neck/C-Spine: COMMON NORMALS: no JVD Chest: COMMONS NORMALS: normal inspection of the chest and normal palpation of entire chest wall Resp: COMMON NORMALS: normal respiratory effort, No retractions, No use of accessory muscles and clear to auscultation bilaterally AUSCULTATION: clear to auscultation bilaterally Cardio: COMMON NORMALS: no JVD, regular rate, regular rhythm, S1 normal heart sound present, S2 normal heart sound present, No gallops present (Cardio), No clicks present (Cardio), No murmurs present (Cardio) and No rub (Cardio) R ATE: regular rate RHYTHM: regular rhythm HEART SOUNDS: S1 normal heart sound present and S2 normal heart sound present GI: COMMON NORMALS: Normal to inspection, nondistended, normoactive bowel sounds present, Soft to palpation, No hepatosplenomegaly present and no masses; negative for non-tender (Tender throughout but worse in the upper epigastric area) PALPATION: Yes Soft to palpation and Yes No hepatosplenomegaly present Neuro: COMMON NORMALS: patient oriented x3 SENSORIUM/ORIENTATION: Yes alert Course 2 Vital Signs: Vital signs: Vital Signs Temperature 98.5 F 09/30/23 17:08 Pulse Rate 59 L 09/30/23 22:00 Respiratory Rate 18 09/30/23 22:07 Blood Pressure 174/97 09/30/23 22:00 Pulse Oximetry 98 09/30/23 22:07 Oxygen Delivery Me thod Room Air 09/30/23 22:00 MDM - Abdominal Pain Medical Decision Making Patient presents to the ER with having increased abdominal pain that he thought was a side effect of his new prescriptions. Patient had lab work done as well as a CT of his abdomen pelvis which was essentially benign other than the circumferential bladder wall thickening, these results was discussed with the patient. The patient was discussed the potential change back to his old medicine prior to having these complications however thought it was be easier to stay on these new medicines as they are unlikely to be cause of the complications and to follow-up with a doctor to prescribe them and talk to them about these medicines. Patient be discharged from the ER. Differential Diagnosis Likely abdominal pain and constipation; Unlikely acute appendicitis, calculus of kidney, diverticulitis, endometriosis, gastroenteritis, pancreatitis or small bowel obstruction Medical Records I reviewed the patient's medical records. Lab Data I reviewed the patient's lab results. 09/30/23 17:37 09/30/23 17:37 Labs/Radiology: Radiology Impressions Abdomen/Pelvis CT 09/30/23 18:43 IMPRESSION: 1. Circumferential bladder wall thickening which may be secondary to chronic bladder outlet obstruction. Findings can be clinically correlated with cystitis if clinically indicated. 2. Otherwise no acute findings within the abdomen or pelvis. COMMENTS: Consistent with the [place] [employer]'s Incidental Findings Committee white paper (J Am Wilbur Radiol 2018): Any incidental renal lesion less than 1 cm or classified as too small to characterize, or any incidental cystic renal lesion characterized as simple-appearing, is likely benign. No follow-up imaging is recommended for these lesions per consensus recommendations based on imaging criteria. Laboratory Results WBC 11.00 10^3/uL (3.29-11.43) 09/30/23 17:37 RBC 5.00 10^6/uL (3.85-5.65) 09/30/23 17:37 Hgb 14.80 g/dL (11.27-16.99) 09/30/23 17:37 Hct 43.2 % (37-53) 09/30/23 17:37 MCV 86.4 fl (82-101) 09/30/23 17:37 MCH 29.6 pg (27-33) 09/30/23 17:37 MCHC 34.3 g/dL (30-55) 09/30/23 17:37 RDW 12.8 % (12.1-15.1) 09/30/23 17:37 Plt Count 322 10^3/cmm (157-399) 09/30/23 17:37 MPV 11.0 fL (7.4-10.4) H 09/30/23 17:37 Neut % (Auto) 64.8 % 09/30/23 17:37 Lymph % (Auto) 24.3 % 09/30/23 17:37 [place] % (Auto) 9.2 % 09/30/23 17:37 Eos % (Auto) 1.0 % 09/30/23 17:37 Baso % (Auto) 0.5 % 09/30/23 17:37 Neut # (Auto) 7.14 10^3/uL (1.8-7.7) 09/30/23 17:37 Lymph # (Auto) 2.7 10^3/uL (0.8-4.8) 09/30/23 17:37 [place] # (Auto) 1.0 10^3/uL (0.2-0.9) H 09/30/23 17:37 Eos # (Auto) 0.1 10^3/uL (0.0-0.8) 09/30/23 17:37 Baso # (Auto) 0.1 10^3/uL (0.0-0.1) 09/30/23 17:37 Nucleated RBC % (auto) 0 % 09/30/23 17:37 Nucleated RBCs # 0.0 /100WBC 09/30/23 17:37 Sodium 134 mmol/L (136-145) L 09/30/23 17:37 Potassium 3.8 mmol/L (3.5-5.1) 09/30/23 17:37 Chloride 96 mmol/L (98-107) L 09/30/23 17:37 Carbon Dioxide 24 mmol/L (22-29) 09/30/23 17:37 Anion Gap 17.8 (5-19) 09/30/23 17:37 BUN 9 mg/dL (6-20) 09/30/23 17:37 Creatinine 0.8 mg/dL (0.7-1.2) 09/30/23 17:37 GFR Calculation 99.3 mL/min (90-130) 09/30/23 17:37 Glucose 126 mg/dL (65-115) H 09/30/23 17:37 Calculated Osmolality 278 mOsm/kg (285-295) L 09/30/23 17:37 Calcium 9.4 mg/dL (8.5-10.5) 09/30/23 17:37 Magnesium 2.0 mg/dL (1.7-2.3) 09/30/23 17:37 Total Bilirubin 0.7 mg/dL (0.15-1.2) 09/30/23 17:37 AST 13 U/L (0-40) 09/30/23 17:37 ALT 12 U/L (0-41) 09/30/23 17:37 Alkaline Phosphatase 73 U/L (40-130) 09/30/23 17:37 Total Protein 8.0 g/dL (6.6-8.7) 09/30/23 17:37 Albumin 4.8 g/dL (3.5-5.2) 09/30/23 17:37 Globulin 3.2 g/dL (1.3-4.6) 09/30/23 17:37 Lipase 13 U/L (13-60) 09/30/23 17:37 Urine Color Yellow (Yellow) 09/30/23 19:44 Urine Appearance Clear (CLEAR) 09/30/23 19:44 Urine pH 6 (5-7) 09/30/23 19:44 Ur Specific [place] 1.015 (1.005-1.030) 09/30/23 19:44 Urine Protein Neg (Negative) 09/30/23 19:44 Urine Glucose (UA) Norm (Normal) 09/30/23 19:44 Urine Ketones Negative (Negative) 09/30/23 19:44 Urine Blood Neg (Negative) 09/30/23 19:44 Urine Nitrate Negative (Negative) 09/30/23 19:44 Urine Bilirubin Neg (Negative) 09/30/23 19:44 Urine Urobilinogen Norm mg/dL (Negative) 09/30/23 19:44 Ur Leukocyte Esterase Trace (Negative) H 09/30/23 19:44 Urine RBC 0-4 /hpf (0-2) H 09/30/23 19:44 Urine WBC 5-10 /hpf (0-5) H 09/30/23 19:44 Ur Squamous Epith Cells None /hpf (0-5) 09/30/23 19:44 Amorphous Sediment Not Reportable 09/30/23 19:44 Urine Bacteria Trace /hpf (NONE) 09/30/23 19:44 Urine Mucus Trace /hpf 09/30/23 19:44 All radiology interpretation(s) finalized by discharge Discharge Plan Discharge Patient Disposition: Home Clinical Impression: Abdominal pain Qualifiers: Abdominal location: generalized Qualified Code(s): R10.84 - Generalized abdominal pain Condition: Stable Prescriptions: No Action melatonin 5 mg tablet 10 mg PO BEDTIME albuterol sulfate 90 mcg/actuation HFA aerosol inhaler 2 inh INHALATION Q4H PRN (Reason: shortness of breath or wheezing) Qty: 8.5 1RF Rx Instructions: 340 B medications (DME) CPAP supplies See Rx Instructions .Route .MEDSUPPLY Qty: 1 0RF Rx Instructions: Mask, tubing, filters. (DME) blood-glucose meter [OneTouch Ultra2 Meter] [facility] [place] See Rx Instructions .Route Qty: 1 0RF Rx Instructions: to use to check blood sugar once daily (DME) OneTouch Ultra Test Strip See Rx Instructions .Route Qty: 100 3RF Rx Instructions: to check blood sugar once daily in onetouch meter 90day supply tizanidine 4 mg tablet 8 mg PO TID 30 Days Qty: 180 0RF quetiapine [Seroquel] 100 mg tablet 100 mg PO BEDTIME Qty: 30 3RF Rx Instructions: Take one tablet at bedtime quetiapine [Seroquel] 50 mg tablet 50 mg PO BID@08,16 Qty: 60 2RF Rx Instructions: Take one tablet at 8 am and 4 pm atorvastatin [Lipitor] 40 mg tablet 40 mg PO DAILY Qty: 90 1RF gabapentin 300 mg capsule 600 mg PO TID 30 Days Qty: 90 0RF morphine 15 mg tablet 15 mg PO BID PRN (Reason: pain (scale score 7-10)) 30 Days Qty: 60 0RF duloxetine [Cymbalta] 30 mg capsule,delayed release(DR/EC) 30 mg PO DAILY Qty: 30 1RF naloxone [Narcan] 4 mg/actuation spray,non-aerosol 4 mg intranasal Q2M PRN (Reason: opioid overdose) Qty: 2 3RF Rx Instructions: spray 1 dose into 1 nostril alternate nostrils w ea dose until help arrives (DME) back brace [Back Support S/M] Misc See Rx Instructions .Route Qty: 1 0RF Rx Instructions: As directed (DME) back brace Misc See Rx Instructions .ROUTE .MEDSUPPLY Qty: 1 0RF Rx Instructions: As directed potassium chloride 20 mEq tablet extended release 20 meq PO DAILY@0800 Qty: 90 3RF furosemide 40 mg tablet 40 mg PO BID PRN (Reason: weight gain) Qty: 180 3RF (DME) AUTO - TITRATING CPAP 6-10CM See Rx Instructions .Route .MEDSUPPLY Qty: 1 0RF Rx Instructions: As directed (DME) rollaid walker with chair See Rx Instructions .Route .MEDSUPPLY Qty: 1 0RF Rx Instructions: As directed losartan 50 mg tablet 50 mg PO DAILY Qty: 30 0RF oxycodone 10 mg tablet,oral only,ext.rel.12 hr 10 mg PO BID 30 Days Qty: 60 0RF pantoprazole 40 mg tablet,delayed release (DR/EC) 40 mg PO QAM Nitrostat 0.4 mg Tablet, Sublingual 0.4 mg SUBLINGUAL Q5M PRN (Reason: Chest Pain) Rx Instructions: do not exceed 3 doses per episode Vitamin D3 125 mcg (5,000 unit) Tablet 5,000 unit PO DAILY ondansetron 4 mg tablet,disintegrating 4 mg PO Q8H PRN (Reason: nausea and vomiting) Qty: 10 0RF methocarbamol 750 mg tablet 750 mg PO Q6H PRN (Reason: spasms) Qty: 20 0RF Naprosyn 500 mg tablet 500 mg PO BID PRN (Reason: pain) Qty: 20 0RF Discharge Orders: Discharge ED (Routine); Ordered 09/30/23 Ordered By: Akshat Wiggins Referrals: Alec Gabriel MD [Primary Care Provider] - 1 week Patient Instructions: Abdominal Pain (ED), Adverse Drug Reaction (ED) Activity Restrictions/Additional Instructions: Evaluation in ER through physical exam, urinalysis, lab work, and CT scan of the abdomen pelvis was essentially unremarkable. You were giving morphine for pain control. Your symptoms may be the result of an adverse medicine reaction to your new medicine changes. Please follow-up with your doctors who prescribed these medicines and discussed this with them as you may benefit from changing medicines. Thank you for choosing [facility] for your healthcare needs today. Please realize that you were seen in the emergency department and that we are providing you with an emergency medical screening exam and this may not be a complete and all exclusive of all testing and/or medical workup we may need to determine your element or severity of your illness. It is very important that you follow-up as instructed with your primary care provider or specialist for the additional evaluation and to discuss your medical treatment plan. You may return to the emergency department should you have concerns or if your condition changes or worsens in any way. Coding Level of Care Code ED Microstrategy Developer for Emy Ford
[2023-09-30] MEDS: lidocaine 2% viscous 15 ML, aluminum-mag hydrox-simethicon 30 ML, sucralfate oral liq 1 GM PO (19:09)
[2023-09-30] MEDS: morphine 4 mg/mL SDV 1 mL IVP (19:36)
[2023-09-30 19:58] LABS: Add Urine Microscopic? YES; Bilirubin Urine Neg (Negative); Blood Urine Neg (Negative); Glucose Urine UA Norm (Normal); Ketones Urine Negative (Negative); Leukocyte Esterase Urine Trace (Negative); Nitrate Urine Negative (Negative); Protein Urine Neg (Negative); RBC Urine 0-4 /hpf (0-2); Specific Gravity, Urine 1.015 (1.005-1.030); Urine Appearance Clear (CLEAR); Urine Color Yellow (Yellow); Urobilinogen Urine Norm (Negative); pH Urine 6 (5-7)
[2023-09-30 19:59] LABS: Add Urine Culture? No; Bacteria Urine TRACE /hpf; Mucus Urine TRACE /hpf
--- NOTE | 2023-09-30 20:28 | PC.NURSE ---
pt states not taking any home medications the past 2 days.
[2023-09-30] MEDS: iohexol 350 mg/mL 500 mL Btl (per mL) IV (20:40)
[2023-09-30] MEDS: morphine 4 mg/mL SDV 1 mL 8 MG IVP (22:07)
== END 2023-09-30 23:00 | disposition home or self-care (01) ==
PROVIDERS: Emergency Medicine; Emergency Provider Emergency Medicine; PCP Family Medicine
DX: R10.84 Generalized abdominal pain (principal)
CPT/HCPCS: 36415; 74177; 80053; 81001; 83690; 83735; 85025; 96374; 96375; 99285; J2270; Q9967

== ENCOUNTER 2023-10-01 20:02 | Inpatient (IN) | payer MEDICARE, SELFPAY ==
[2023-10-01 20:26] VITALS: BP 143/85; PULSE 87; RESP 18; TEMP 36.7; O2SAT 96
--- NOTE | 2023-10-01 21:28 | ED_ITS ---
HPI - Abdominal Pain 2 General: Chief Complaint: Abdominal Pain Stated Complaint: Can't pee Time Seen by Provider: 10/01/23 21:28 History of Present Illness: Patient presents to the ER with diffuse abdominal pain, not able to eat or drink anything for about the last 3 days. He believes that his oxycodone is causing this. Patient was seen in the ER last night had a complete workup including lab work and CT scan contrast of the abdomen pelvis patient's pain was controlled he was sent home. Patient said he urinated 1 good time this morning and has not urinated since 6 AM. He said just the smell and the thought of eating or drinking anything turned to the stomach to the point he gets very nauseous. Patient is also having worsening abdominal pain. Review of Systems 2 General: Reports: 10 or more systems reviewed and unremarkable except in HPI and below PFSH ED 2 PFSH: Medical History Leukocytosis Hyponatremia Chronic prescription opiate use Intractable nausea and vomiting Near syncope Nicotine dependence, chewing tobacco, uncomplicated Atherosclerosis of coronary artery Chest pain Psychiatric care Abnormal stress test COVID-19 History of colon polyps History of CVA (cerebrovascular accident) 2005 --left-sided weakness Nephrolithiasis Acute bronchitis Congestive heart failure Chronic low back pain Dizziness Major depressive disorder, recurrent, moderate Chronic neck pain History of [place] (myocardial infarction) History of TIA (transient ischemic attack) Left ventricular hypertrophy Hypertriglyceridemia MRSA (methicillin resistant Staphylococcus aureus) Bright red rectal bleeding Internal hemorrhoids Diastolic heart failure Hypothyroidism Essential (primary) hypertension Surgical History H/O esophagogastroduodenoscopy (05/10/20) History of colonoscopy 12/2014 --small tubular adenoma, limited diverticulosis 02/2018 --small internal hemorrhoids S/P appendectomy S/P cholecystectomy S/P hernia repair ventral with mesh x 2 H/O neck surgery x 5 ( some of those were for a postop MRSA infection ) Family History Mother Congestive heart failure (CHF) Thyroid disease Sister Thyroid disease Father Atrial fibrillation Brother Heart disease HX STENTS Other CAD (coronary artery disease) Diabetes Social History Smoking and tobacco/nicotine status: unknown if used tobacco/nicotine Second hand smoke exposure: Yes Alcohol intake: never Substance/Drug Use: never Lives independently: Yes Household members: spouse Marital status: Current occupational status: disabled Do you think of yourself as: Straight/Heterosexual Current gender identity: Male Physical Exam 2 Const: COMMON NORMALS: no acute distress, average body habitus, patient oriented x3, no limitations, healthy appearing, alert and well nourished HENMT: COMMON NORMALS: normocephalic, atraumatic, hearing grossly normal bilaterally, external ears normal, Normal external nose present and moist oral mucous membranes HEAD & SCALP: normocephalic and atraumatic NOSE: Normal external nose present EXTERNAL EAR: Yes external ears normal Neck/C-Spine: COMMON NORMALS: full ROM, no lymphadenopathy, supple, no meningeal signs, no JVD and Thyroid normal THYROID: Thyroid normal Chest: COMMONS NORMALS: normal inspection of the chest and normal palpation of entire chest wall Resp: COMMON NORMALS: normal respiratory effort, No retractions, No use of accessory muscles and clear to auscultation bilaterally AUSCULTATION: clear to auscultation bilaterally Cardio: COMMON NORMALS: no JVD, regular rate, regular rhythm, S1 normal heart sound present, S2 normal heart sound present, No gallops present (Cardio), No clicks present (Cardio), No murmurs present (Cardio) and No rub (Cardio) R ATE: regular rate RHYTHM: regular rhythm HEART SOUNDS: S1 normal heart sound present and S2 normal heart sound present GI: COMMON NORMALS: Normal to inspection, nondistended, normoactive bowel sounds present, Soft to palpation, No hepatosplenomegaly present and no masses; negative for non-tender (Diffusely tender worse in the upper epigastric area) PALPATION: Yes Soft to palpation and Yes No hepatosplenomegaly present Neuro: COMMON NORMALS: patient oriented x3 SENSORIUM/ORIENTATION: Yes alert MENINGEAL SIGNS: Yes no meningeal signs Course 2 Vital Signs: Vital signs: Vital Signs Temperature 98.1 F 10/01/23 20:26 Pulse Rate 64 10/02/23 00:58 Respiratory Rate 16 10/02/23 00:58 Blood Pressure 134/66 10/02/23 00:58 Pulse Oximetry 98 10/02/23 00:58 Oxygen Delivery Me thod Room Air 10/01/23 20:26 MDM - Abdominal Pain Medical Decision Making Patient comes in with abdominal pain and nausea believed to be secondary to adverse reaction to medication. Patient was given 2 L normal saline before even had to urinate. Then he gives only enough urine for specimen, he was bladder scan twice and the most he had in his bladder was 10 mL. Patient was given total of approximately 16 mg morphine, 4 mg Zofran and lab work was obtained, I reviewed the lab work CT scan and my note from seeing him yesterday. I talk with Dr. Dennis who said we can place him in observation for dehydration and not nausea vomiting. Differential Diagnosis Likely abdominal pain Medical Records I reviewed the patient's medical records. Lab Data I reviewed the patient's lab results. 10/01/23 22:35 10/01/23 22:35 Labs/Radiology: Laboratory Results WBC 10.35 10^3/uL (3.29-11.43) 10/01/23 22:35 RBC 4.90 10^6/uL (3.85-5.65) 10/01/23 22:35 Hgb 14.50 g/dL (11.27-16.99) 10/01/23 22:35 Hct 43.5 % (37-53) 10/01/23 22:35 MCV 88.8 fl (82-101) 10/01/23 22:35 MCH 29.6 pg (27-33) 10/01/23 22:35 MCHC 33.3 g/dL (30-55) 10/01/23 22:35 RDW 12.9 % (12.1-15.1) 10/01/23 22:35 Plt Count 274 10^3/cmm (157-399) 10/01/23 22:35 MPV 10.5 fL (7.4-10.4) H 10/01/23 22:35 Neut % (Auto) 64.5 % 10/01/23 22:35 Lymph % (Auto) 23.8 % 10/01/23 22:35 [place] % (Auto) 9.9 % 10/01/23 22:35 Eos % (Auto) 1.0 % 10/01/23 22:35 Baso % (Auto) 0.5 % 10/01/23 22:35 Neut # (Auto) 6.69 10^3/uL (1.8-7.7) 10/01/23 22:35 Lymph # (Auto) 2.5 10^3/uL (0.8-4.8) 10/01/23 22:35 [place] # (Auto) 1.0 10^3/uL (0.2-0.9) H 10/01/23 22:35 Eos # (Auto) 0.1 10^3/uL (0.0-0.8) 10/01/23 22:35 Baso # (Auto) 0.1 10^3/uL (0.0-0.1) 10/01/23 22:35 Nucleated RBC % (auto) 0 % 10/01/23 22:35 Nucleated RBCs # 0.0 /100WBC 10/01/23 22:35 Sodium 137 mmol/L (136-145) 10/01/23 22:35 Potassium 4.2 mmol/L (3.5-5.1) 10/01/23 22:35 Chloride 101 mmol/L (98-107) 10/01/23 22:35 Carbon Dioxide 24 mmol/L (22-29) 10/01/23 22:35 Anion Gap 16.2 (5-19) 10/01/23 22:35 BUN 10 mg/dL (6-20) 10/01/23 22:35 Creatinine 0.7 mg/dL (0.7-1.2) 10/01/23 22:35 GFR Calculation 115.8 mL/min (90-130) 10/01/23 22:35 Glucose 113 mg/dL (65-115) 10/01/23 22:35 Calculated Osmolality 284 mOsm/kg (285-295) L 10/01/23 22:35 Calcium 8.7 mg/dL (8.5-10.5) 10/01/23 22:35 Magnesium 2.1 mg/dL (1.7-2.3) 10/01/23 22:35 Total Bilirubin 0.8 mg/dL (0.15-1.2) 10/01/23 22:35 AST 15 U/L (0-40) 10/01/23 22:35 ALT 13 U/L (0-41) 10/01/23 22:35 Alkaline Phosphatase 70 U/L (40-130) 10/01/23 22:35 C-Reactive Protein 3.0 mg/L (0.0-4.9) 10/01/23 22:35 NT-Pro-B Natriuret Pep 65 pg/mL (0-125) 10/01/23 22:35 Total Protein 7.4 g/dL (6.6-8.7) 10/01/23 22:35 Albumin 4.4 g/dL (3.5-5.2) 10/01/23 22:35 Globulin 3.0 g/dL (1.3-4.6) 10/01/23 22:35 Lipase 11 U/L (13-60) L 10/01/23 22:35 Urine Color Dark yellow (Yellow) A 10/02/23 00:10 Urine Appearance Clear (CLEAR) 10/02/23 00:10 Urine pH 5 (5-7) 10/02/23 00:10 Ur Specific [place] 1.025 (1.005-1.030) 10/02/23 00:10 Urine Protein Trace (Negative) 10/02/23 00:10 Urine Glucose (UA) Norm (Normal) 10/02/23 00:10 Urine Ketones 2+ (Negative) H 10/02/23 00:10 Urine Blood Neg (Negative) 10/02/23 00:10 Urine Nitrate Negative (Negative) 10/02/23 00:10 Urine Bilirubin 1+ (Negative) H 10/02/23 00:10 Urine Urobilinogen Neg mg/dL (Negative) 10/02/23 00:10 Ur Leukocyte Esterase Negative (Negative) 10/02/23 00:10 Urine RBC None /hpf (0-2) 10/02/23 00:10 Urine WBC 0-4 /hpf (0-5) H 10/02/23 00:10 Ur Squamous Epith Cells None /hpf (0-5) 10/02/23 00:10 Amorphous Sediment Not Reportable 10/02/23 00:10 Urine Bacteria Trace /hpf (NONE) 10/02/23 00:10 Urine Mucus 3+ /hpf 10/02/23 00:10 Urine Opiates Screen Positive ng/mL (Negative) H 10/02/23 00:10 Ur Barbiturates Screen Negative ng/mL (Negative) 10/02/23 00:10 Ur Phencyclidine Scrn Negative ng/mL (Negative) 10/02/23 00:10 Ur Amphetamines Screen Negative ng/mL (Negative) 10/02/23 00:10 U Benzodiazepines Scrn Negative ng/mL (Negative) 10/02/23 00:10 Urine Cocaine Screen Negative ng/mL (Negative) 10/02/23 00:10 U Marijuana (THC) Screen Positive ng/mL (Negative) H 10/02/23 00:10 All radiology interpretation(s) finalized by discharge Discharge Plan Discharge Patient Disposition: Placed in Observation Clinical Impression: Acute dehydration, Abdominal pain, Nausea & vomiting Coding Level of Care Code ED Public Improvement Inspector for Emy Ford
[2023-10-01] MEDS: ondansetron 2 mg/ML SDV 2 mL 4 MG IVP (22:22)
[2023-10-01] MEDS: sodium chloride 0.9% 1,000 ML 999 ML IV ×2 (22:23→23:39)
[2023-10-01] MEDS: morphine 4 mg/mL SDV 1 mL 8 MG IVP ×2 (22:23→23:39)
[2023-10-01 22:43] LABS: Basophils # 0.1 10^3/uL (0.0-0.1); Basophils % 0.5 %; Eosinophils # 0.1 10^3/uL (0.0-0.8); Hematocrit 43.5 % (37-53); Lymphocytes # 2.5 10^3/uL (0.8-4.8); Lymphocytes % 23.8 %; Mean Corpuscular HGB Conc 33.3 g/dL (30-55); Mean Corpuscular Hemoglobin 29.6 pg (27-33); Mean Corpuscular Volume 88.8 fl (82-101); Mean Platelet Volume 10.5 fL (7.4-10.4); Monocytes % 9.9 %; Neutrophils # 6.69 10^3/uL (1.8-7.7); Neutrophils % 64.5 %; Nucleated Red Blood Cells % 0 %; Platelet Count 274 10^3/cmm (157-399); Red Cell Distribution Width 12.9 % (12.1-15.1); White Blood Count 10.35 10^3/uL (3.29-11.43)
[2023-10-01 23:18] LABS: Alanine Aminotransferase 13 U/L (0-41); Albumin Level 4.4 g/dL (3.5-5.2); Alkaline Phosphatase 70 U/L (40-130); Anion Gap 16.2 (5-19); Aspartate Amino Transferase 15 U/L (0-40); Blood Urea Nitrogen 10 mg/dL (6-20); Calcium 8.7 mg/dL (8.5-10.5); Carbon Dioxide 24 mmol/L (22-29); Chloride 101 mmol/L (98-107); Creatinine Clr Calc Pharmacy 137.6806; Glomerular Filtration Rate 115.8 mL/min (90-130); Glucose 113 mg/dL (65-115); Lipase 11 U/L (13-60); Magnesium 2.1 mg/dL (1.7-2.3); NT Pro B Type Natriuretic Pept 65 pg/mL (0-125); Osmolality Calculated 284 mOsm/kg (285-295); Potassium 4.2 mmol/L (3.5-5.1); Sodium 137 mmol/L (136-145); Total Bilirubin 0.8 mg/dL (0.15-1.2); Total Protein 7.4 g/dL (6.6-8.7)
[2023-10-02] VITALS (16 sets, daily range): BP systolic 134–173; BP diastolic 66–96; PULSE 60–671; RESP 14–20; TEMP 36.6–36.9; O2SAT 93–98; BMI 31.1
[2023-10-02 00:42] LABS: Amphetamines Screen Urine Negative (Negative); Barbiturates Screen Urine Negative (Negative); Benzodiazepines Screen Urine Negative (Negative); Cocaine Screen Urine Negative (Negative); Opiate Screen Urine Positive (Negative); PCP Screen Urine Negative (Negative); THC Screen Urine Positive (Negative)
[2023-10-02 01:16] LABS: Add Urine Microscopic? YES; Bilirubin Urine 1+ (Negative); Blood Urine Neg (Negative); Glucose Urine UA Norm (Normal); Ketones Urine 2+ (Negative); Leukocyte Esterase Urine Negative (Negative); Nitrate Urine Negative (Negative); Protein Urine Trace (Negative); Specific Gravity, Urine 1.025 (1.005-1.030); Urine Appearance Clear (CLEAR); Urine Color Dark Yellow (Yellow); Urobilinogen Urine Neg (Negative); WBC Urine 0-4 /hpf (0-5); pH Urine 5 (5-7)
[2023-10-02 01:17] LABS: Add Urine Culture? No; Bacteria Urine TRACE /hpf; Mucus Urine 3+ /hpf
--- NOTE | 2023-10-02 01:46 | PC.NURSE ---
Addendum entered by Tosin Cedillo RN 10/02/23 01:46: pt also verbalizes that oxycodone apap is okay. only oxycontin is not okay it makes his stomach hurt. Original Note: pt states he is unable to take oxycontin due to stomach upset. pt verbalized morphine and dilaudid are okay and do not bother him.
--- NOTE | 2023-10-02 03:59 | P.HP_ITS ---
Providers/Chief Complaint 2 Admitting Physician: Farhat Dennis MD Primary Care Provider: Alec Gabriel MD Chief Complaint: Can't pee History of Present Illness Ben Nielsen is a 58 year old male chronic pain on opiates, polyneuropathy diabetic neuropathy per EMG., CAD, HTN, HLD, MDD, anxiety, insomnia, dm2(currently off medications), hypothyroidism, degenerative spine disease presented with chief complaint of not been able to eat secondary to nausea. Patient is not endorsing fever, diarrhea, stating that Dr. Mckinney orthopedic surgeon put him on OxyContin and that put him in the state. He is very unhappy and stating that he would like to change his doctors. He has already changed 4 doctors in last few months. He lives with his , smokes cigar occasionally does not drink alcohol. Patient is stating that he was diagnosed with diabetes now he is off all diabetic medications and his hemoglobin is better off all the medications. Patient is stating that he uses medical marijuana and he has been using it for quite some time, became a little upset when I questioned him regarding marijuana. Patient is stating that he has been wrongly diagnosed with neuropathy he thinks it is because of his bad spine L1-L5 issues. Patient is denying recent traveling, no one is sick at home He became upset again when I asked him if his spouse is also sick with similar symptoms, he started making statements such as I am way off from what the ER did downstairs I had to splint him there are certain diseases which are communicable that is why asked about his spouse's health. Patient is stating that he normally takes morphine and that has worked in his favor CT abdomen pelvis unremarkable 1.0 cm hyperattenuating focus within hepatic segment 6 which may represent a small hemangioma He had similar presentation in the past 2021 coronary angiogram revealed 50% narrowing of the small diagonal branch, normal EF Patient is stating that in the past he was put on some pain medication that caused GI bleed and required blood transfusion Nowadays whenever he is wiping he is noticing some blood Patient is stating that he has not slept in the last 3 to 4 days because he has not taken his sleep aid because of nausea MR/MR lumbar spine wo con* [id number] IMPRESSION: 1. Moderate size RIGHT subarticular recess disc protrusion at L2-3 with deformity of the RIGHT lateral thecal sac and significant encroachment on the L3 nerve root. 2. Moderate RIGHT and mild LEFT foraminal stenosis at L3-4. Disc osteophyte extends into the RIGHT subarticular recess with encroachment upon the L4 nerve root. 3. Moderate LEFT and mild RIGHT foraminal stenosis at L4-5 and L5-S1 predominantly due to disc and facet arthritis. Review of Systems 2 Const: Denies: fever(s) Eyes: Denies: change in vision ENMT: Denies: throat pain Card: Denies: chest pain Resp: Denies: dyspnea GI: Reports: abdominal pain and nausea : Denies: flank pain Medications/Allergies Home Medications Medication Instructions Recorded Confirmed Last Taken Type CPAP supplies #1 ea 11/29/20 10/02/23 Unknown Rx blood sugar diagnostic (OneTouch #100 ea 01/26/21 10/02/23 Unknown Rx Ultra Test strips) blood-glucose meter (OneTouch #1 ea 01/26/21 10/02/23 Unknown Rx Ultra2 Meter) albuterol sulfate 90 mcg/actuation 2 inh inhalation Q4H PRN shortness 03/24/21 10/02/23 Unknown Rx aerosol inhaler of breath or wheezing #8.5 grams back brace (Back Support S/M) #1 ea 05/15/21 10/02/23 Unknown Rx back brace #1 ea 05/30/21 10/02/23 Unknown Rx melatonin 5 mg tablet 10 mg PO BEDTIME sleep 10/20/21 10/02/23 1 Day Ago History ~10/01/23 naloxone 4 mg/actuation nasal 4 mg intranasal Q2M PRN opioid 01/30/22 10/02/23 Unknown Rx spray (Narcan) overdose #2 ea furosemide 40 mg tablet 40 mg PO BID PRN weight gain #180 04/03/22 10/02/23 Unknown Rx tabs AUTO - TITRATING CPAP 6-10CM #1 ea 01/17/23 10/02/23 Unknown Rx tizanidine 4 mg tablet 8 mg (2 x 4 mg) PO TID muscle 02/14/23 10/02/23 3 Days Ago Rx spasticity 30 days #180 tabs ~09/29/23 nitroglycerin 0.4 mg sublingual 0.4 mg sublingual Q5M PRN Chest 07/14/23 10/02/23 Unknown History tablet (Nitrostat) Pain pantoprazole 40 mg tablet,delayed 40 mg PO QAM 07/14/23 10/02/23 1 Day Ago History release ~10/01/23 methocarbamol 750 mg tablet 750 mg PO Q6H PRN spasms #20 tabs 08/29/23 10/02/23 Unknown Rx naproxen 500 mg tablet (Naprosyn) 500 mg PO BID PRN pain #20 tabs 08/29/23 10/02/23 Unknown Rx duloxetine 30 mg capsule,delayed 30 mg PO DAILY nerve medication 09/10/23 10/02/23 Unknown Rx release (Cymbalta) #30 caps gabapentin 300 mg capsule 600 mg (2 x 300 mg) PO TID pain 09/10/23 10/02/23 Unknown Rx 30 days #90 caps morphine 15 mg immediate release 15 mg PO BID PRN pain (scale score 09/10/23 10/02/23 1 Day Ago Rx tablet 7-10) 30 days #60 tabs ~10/01/23 rollaid walker with chair #1 ea 09/11/23 10/02/23 Unknown Rx losartan 50 mg tablet 50 mg PO DAILY #30 tabs 09/16/23 10/02/23 3 Days Ago Rx ~09/29/23 quetiapine 25 mg tablet (Seroquel) 25 mg PO BID PRN anxiety #60 tabs 10/01/23 10/02/23 Unknown Rx quetiapine 50 mg tablet (Seroquel) 50 mg PO BEDTIME #30 tabs 10/01/23 10/02/23 Unknown Rx Allergies Allergy/AdvReac Type Severity Reaction Status Date / Time pregabalin [From Lyrica] Allergy Intermediate ADR-Halluci Verified 10/01/23 20:30 nating pineapple Allergy Unknown ALGY-Anaphy Verified 10/01/23 20:30 laxis oxycodone [From OxyContin] Allergy ADR-Gastrointestinal Verified 10/02/23 01:45 Upset levothyroxine sodium AdvReac Severe ADR-Halluci Verified 10/01/23 20:30 [From Euthyrox] nating hydrochlorothiazide AdvReac ADR-Agitate Verified 10/01/23 20:30 d PFSH Acute 2 PFSH: Medical History Leukocytosis Hyponatremia Chronic prescription opiate use Intractable nausea and vomiting Near syncope Nicotine dependence, chewing tobacco, uncomplicated Atherosclerosis of coronary artery Chest pain Psychiatric care Abnormal stress test COVID-19 History of colon polyps History of CVA (cerebrovascular accident) 2005 --left-sided weakness Nephrolithiasis Acute bronchitis Congestive heart failure Chronic low back pain Dizziness Major depressive disorder, recurrent, moderate Chronic neck pain History of UT (myocardial infarction) History of TIA (transient ischemic attack) Left ventricular hypertrophy Hypertriglyceridemia MRSA (methicillin resistant Staphylococcus aureus) Bright red rectal bleeding Internal hemorrhoids Diastolic heart failure Hypothyroidism Essential (primary) hypertension Surgical History H/O esophagogastroduodenoscopy (05/10/20) History of colonoscopy 12/2014 --small tubular adenoma, limited diverticulosis 02/2018 --small internal hemorrhoids S/P appendectomy S/P cholecystectomy S/P hernia repair ventral with mesh x 2 H/O neck surgery x 5 ( some of those were for a postop MRSA infection ) Family History Mother Congestive heart failure (CHF) Thyroid disease Sister Thyroid disease Father Atrial fibrillation Brother Heart disease HX STENTS Other CAD (coronary artery disease) Diabetes Social History Smoking and tobacco/nicotine status: unknown if used tobacco/nicotine Second hand smoke exposure: Yes Alcohol intake: never Substance/Drug Use: never Lives independently: Yes Household members: spouse Marital status: Current occupational status: disabled Do you think of yourself as: Straight/Heterosexual Current gender identity: Male Vitals/I&O/Wt Last Vital Signs Temp 98.1 F 10/02/23 02:19 Pulse 78 10/02/23 02:19 Resp 16 10/02/23 02:19 BP 138/76 10/02/23 02:19 Pulse Ox 93 10/02/23 02:19 O2 Del Method Room Air 10/02/23 01:58 10/01/23 10/01/23 10/02/23 14:59 22:59 06:59 Intake Total 1999 Balance 1999 Weight last 48 hrs Weight 98.43 kg Weight 102.058 kg Physical Exam 2 Narrative: Patient looks dehydrated Dry mucous membranes Awake and alert Nonfocal neuroexam Tender epigastric region Hepatomegaly No active chest pain or shortness of breath Hemodynamically stable S1, S2 Patient is watching television Data 10/02/23 04:28 10/01/23 22:35 A&P Assessment and plan (1) Essential (primary) hypertension: (2) Nausea: (3) Abdominal pain: Qualifiers: Abdominal location: generalized Qualified Code(s): R10.84 - Generalized abdominal pain (4) Acute dehydration: (5) Obstructive sleep apnea: Plan Abdominal pain and nausea Polypharmacy, drug side effect versus opioid withdrawal Fatty infiltration of liver evident on CT scan Patient has not been able to take his medications because of worsening of nausea Risk positive marijuana and opioids Patient is taking medical marijuana and has been on morphine for his degenerative spine disease, recently he was put on OxyContin which made his symptoms worse Patient is stating that he would like to change his orthopedic surgeon Circumferential bladder thickening, patient not endorsing signs of UTI, for now I will give him ceftriaxone Patient is stating that he only tolerates morphine Patient has been experiencing the symptoms for quite some time, if his symptoms do not improve may benefit from gastric emptying study For now I will keep him on normal saline 100 mill per hour Continue morphine DVT prophylaxis Lovenox Hemoglobin stable He also has sleep apnea, CPAP overnight Attestations 2 Medical Necessity Statement*: Anticipating discharge within 48 hours Diagnoses Essential (primary) hypertension I10 Nausea R11.0 Abdominal pain R10.84 Abdominal location: generalized Acute dehydration E86.0 Obstructive sleep apnea G47.33
[2023-10-02 05:01] LABS: Basophils # 0.1 10^3/uL (0.0-0.1); Basophils % 0.5 %; Eosinophils # 0.2 10^3/uL (0.0-0.8); Eosinophils % 2.1 %; Hematocrit 41.1 % (37-53); Lymphocytes # 3.2 10^3/uL (0.8-4.8); Lymphocytes % 31.8 %; Mean Corpuscular HGB Conc 33.3 g/dL (30-55); Mean Corpuscular Hemoglobin 29.6 pg (27-33); Mean Corpuscular Volume 88.8 fl (82-101); Mean Platelet Volume 10.6 fL (7.4-10.4); Monocytes % 10.2 %; Neutrophils # 5.54 10^3/uL (1.8-7.7); Neutrophils % 55.1 %; Nucleated Red Blood Cells % 0 %; Platelet Count 276 10^3/cmm (157-399); Red Blood Count 4.63 10^6/uL (3.85-5.65); White Blood Count 10.04 10^3/uL (3.29-11.43)
[2023-10-02] MEDS: enoxaparin 40 mg/0.4 mL Syringe SUBCUT (05:08)
[2023-10-02] MEDS: morphine 4 mg/mL SDV 1 mL 2 MG IVP ×4 (05:09→22:13)
[2023-10-02] MEDS: sodium chloride 0.9% 1,000 ML 100 ML IV ×2 (05:10→15:44)
[2023-10-02 05:21] LABS: Blood Urea Nitrogen 10 mg/dL (6-20); Calcium 8.1 mg/dL (8.5-10.5); Carbon Dioxide 23 mmol/L (22-29); Chloride 103 mmol/L (98-107); Creatinine Clr Calc Pharmacy 135.8506; Glomerular Filtration Rate 115.8 mL/min (90-130); Glucose 105 mg/dL (65-115); Magnesium 2.1 mg/dL (1.7-2.3); Osmolality Calculated 283 mOsm/kg (285-295); Phosphorus 3.4 mg/dL (2.5-4.5); Sodium 137 mmol/L (136-145)
[2023-10-02 05:23] LABS: Estmated Average Glucose 143; Hemoglobin A1C 6.6 % (4.0-6.0)
[2023-10-02] MEDS: losartan 50 mg Tablet PO (08:49)
[2023-10-02] MEDS: pantoprazole 40 mg SDV IVP ×2 (08:52→17:52)
[2023-10-02] MEDS: cefTRIAXone 1,000 MG in sodium chloride 0.9% (plus) 50 ML 100 MG IV (08:55)
--- NOTE | 2023-10-02 11:52 | PC.NURSE ---
pt and pts spouse req this nurse in room. when in room they asked questions about additional pain meds. educ them on the addition of the zanaflex. pt refused po morphine and the zanaflex and wanted to wait until he could have the 2mg ivp morphine. he is able to have it again at 1330. educ pt and pts spouse of this.
--- NOTE | 2023-10-02 12:55 | W.PM.EVENTAC ---
Event Note Event Note: H&P is appreciated. As per nursing staff patient has been refusing oral pain medications and is requesting IV pain medications every 2 hours. Today morning seen laying comfortably in bed. Patient states he is in the hospital because of dehydration. States his symptoms started after his dose of pain medications were changed recently to oxycodone after which he started having nausea and vomiting. He took oxycodone last on Saturday. Today is Saturday. He is complaining of extreme pain in his back. States usually he lives with a pain scale of 7. States recently his outpatient pain management physician had retired hence his pain medications were changed by his orthopedic surgeon and that seems to be the reason for his symptoms. He does complain of painful and burning micturition though denies any fever. Does complain of increased blood pressures. He is requesting for pain medications to be given every 1-2 hours. He states he would prefer morphine because that seems to work the best for him. Labs appreciated. CT abdomen pelvis appreciated. Urine drug screen positive for opiates and marijuana. Plan: Continue home pain medications as before. Continue morphine 15 mg p.o. twice daily as needed, gabapentin 600 mg 3 times daily, restart home dose of tizanidine 8 mg twice daily as needed. Patient states he is supposed to take duloxetine but has not started yet so would not want to start for now. Continue home dose of Seroquel. We did discuss that unfortunately too much pain medications will cause him to have more nausea and vomiting and his symptoms are most likely a combination of UTI, some withdrawal of pain medications as he has not been able to take his baseline oral pain medications at home as he ran out of the same. Certainly symptoms could be because of oxycodone but the last medications almost 72 hours away. Continue with clear liquid diet. Continue with IV ceftriaxone. Check blood culture, urine culture. For now patient is agreeable plan of treatment. The following is agreeable to take oral medications. Event Notes Attestations Time Spent in Patient Care: 16 - 35 minutes
[2023-10-02] MEDS: morphine IR 15 mg Tablet PO (14:00)
--- NOTE | 2023-10-02 16:27 | PC.NURSE ---
pt straight cath, 500 mls of urine removed.
[2023-10-02] MEDS: docusate sodium 100 mg Capsule PO (17:52)
[2023-10-02] MEDS: quetiapine 25 mg Tablet 50 MG PO (20:29)
[2023-10-03] VITALS (11 sets, daily range): BP systolic 147–155; BP diastolic 75–88; PULSE 58–78; RESP 14–18; TEMP 36.5–36.9; O2SAT 94–98
[2023-10-03] MEDS: morphine IR 15 mg Tablet PO ×2 (01:53→09:56)
[2023-10-03] MEDS: sodium chloride 0.9% 1,000 ML 100 ML IV ×3 (01:54→22:19)
[2023-10-03] MEDS: tizanidine 4 mg Tablet 8 MG PO ×4 (02:08→22:24)
[2023-10-03] MEDS: morphine 4 mg/mL SDV 1 mL 2 MG IVP ×2 (03:45→20:19)
[2023-10-03] MEDS: enoxaparin 40 mg/0.4 mL Syringe SUBCUT (03:45)
[2023-10-03 05:35] LABS: Basophils % 0.4 %; Eosinophils # 0.2 10^3/uL (0.0-0.8); Hematocrit 39.8 % (37-53); Lymphocytes # 2.3 10^3/uL (0.8-4.8); Lymphocytes % 24.3 %; Mean Corpuscular HGB Conc 32.9 g/dL (30-55); Mean Corpuscular Hemoglobin 29.1 pg (27-33); Mean Corpuscular Volume 88.4 fl (82-101); Mean Platelet Volume 10.7 fL (7.4-10.4); Monocytes % 10.3 %; Neutrophils % 62.8 %; Nucleated Red Blood Cells % 0 %; Platelet Count 242 10^3/cmm (157-399); Red Cell Distribution Width 12.6 % (12.1-15.1)
[2023-10-03 06:02] LABS: Alanine Aminotransferase 11 U/L (0-41); Albumin Level 3.7 g/dL (3.5-5.2); Alkaline Phosphatase 60 U/L (40-130); Anion Gap 12.9 (5-19); Aspartate Amino Transferase 12 U/L (0-40); Blood Urea Nitrogen 7 mg/dL (6-20); Calcium 8.1 mg/dL (8.5-10.5); Carbon Dioxide 23 mmol/L (22-29); Chloride 104 mmol/L (98-107); Creatinine Clr Calc Pharmacy 137.2088; Globulin 2.5 g/dL (1.3-4.6); Glomerular Filtration Rate 115.8 mL/min (90-130); Glucose 115 mg/dL (65-115); Osmolality Calculated 281 mOsm/kg (285-295); Potassium 3.9 mmol/L (3.5-5.1); Sodium 136 mmol/L (136-145); Total Bilirubin 0.5 mg/dL (0.15-1.2); Total Protein 6.2 g/dL (6.6-8.7)
[2023-10-03] MEDS: losartan 50 mg Tablet PO (08:16)
[2023-10-03] MEDS: quetiapine 25 mg Tablet PO (08:17)
[2023-10-03] MEDS: cefTRIAXone 1,000 MG in sodium chloride 0.9% (plus) 50 ML 100 MG IV (08:17)
[2023-10-03] MEDS: docusate sodium 100 mg Capsule PO ×2 (08:17→17:13)
[2023-10-03] MEDS: pantoprazole 40 mg SDV IVP ×2 (08:17→17:14)
--- NOTE | 2023-10-03 09:33 | PC.CHAP ---
Pastoral Care Encounter/Spiritual Assessment Type of Contact [] Declined auto radiator mechanic visit [] Patient/Family/Request visit [] Outpatient visit [] Follow-up visit [] Physician referral [] Code/Alert [] Routine visit [] Staff referral [] Actively dying [] Patient sleeping [] Family support [] [] Out of room [] Palliative care [] [x] Receiving care in room [] Pre-surgical visit [] Trauma [] Long length of stay [] ICU visit [] Other: Relational/Emotional Strength [] Patient feels connected with others/family/visitors/staff [] Distress [] Loneliness/isolation [] Abandonment Spirituality of Patient [] Person of Janna [] Attends Methodist of their Janna [] Believes in Prayer [] Reads Bible or Yarsanism materials [] There are Spiritual issues to be addressed Veterinary Toxicologist Interventions [] Prayer [] Active listening [] Non-anxious presence [] Spiritual/emotional support [] Crisis/trauma care [] Spiritual counseling [] Bereavement support [] Provided bereavement packet [] Provided Bible/devotional materials [] Provided toy/stuffed animal, coloring book to patient or family member [] Provided Communion [] Anointing/[place] [] Salvation [] Completed spiritual assessment [] Other: Impact on Illness or Injury [] Angry [] Fearful [] Anxious [] Often cries [] Exhaustion [] Unable to work [] Unable to attend taoist [] Unable to walk/stand [] Unable to read [] Unable to drive [] Unable to eat/drink [] Unable to sleep [] Unable to be with family [] Patient intubated [] Other: Summary Time spent with patient
--- OUTSIDE RECORDS SUMMARY | 2023-10-03 10:24 | XMS_ITS | Patient Health Record ---
Author Name Unknown Organization [facility] Address [address] [place] [address] Care Team Providers Care Salvationist Name Role Phone Eugenio Rasheed Unavailable [phone] Reason For Referral No Information Medications Medication SIG (Take, Route, Frequency, Duration) Notes Start Date End Date Status Gabapentin 300 MG Take 1 capsule tid Oral for 30 Gabapentin 300mg Capsules Take 1 capsule tid 05/27/2013 Active Methocarbamol 750 MG take 1 tablet by mouth every 4-6 hours as needed Oral for 30 Methocarbamol 750mg Tablet take 1 tablet by mouth every 4-6 hours as needed 05/27/2013 Active Simvastatin 20 MG Take 1 tablet(s) by mouth at bedtime Oral for 30 Simvastatin 20mg Tablet Take 1 tablet(s) by mouth at bedtime #30 (Thirty) tablet(s) 10/22/2012 Active Metoprolol Tartrate 25 MG 1 tab(s) po q 12 hours Oral for 30 Metoprolol Tartrate 25mg Tablet 1 tab(s) po q 12 hours #60 (Sixty) tablet(s) 10/22/2012 Active Problems Problem Type SNOMED Code ICD Code Onset Dates Problem Status W/U Status Risk Notes Problem Convulsion (37300485) Seizure(s) ; other (780.39) 2017 Active confirmed [id number]- Problem Hypertriglyceridemia (199872546) Hypertriglyceridemia (272.1) 2011 Active confirmed [id number]- Problem Acquired hypothyroidism (207030034) Acquired hypothyroidism, other specified cause (244.8) 2015 Active confirmed [id number]- Problem 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 Active confirmed [id number]- Problem Essential hypertension (78096566) Essential hypertension (401.1) 2016 Active confirmed [id number]- Problem Conversion disorder (57286735) Conversion disorder (300.11) 2018 Problem resolved confirmed [id number]- Problem Posttraumatic stress disorder (37979980) Posttraumatic stress disorder (309.81) 2017 Problem resolved confirmed [id number]- Problem Disorder of cervical spine (471388877) Other syndromes affecting cervical region (723.8) 2012 Problem resolved confirmed [id number]- Problem Edema (685125336) Edema (782.3) 2011 Problem resolved confirmed [id number]- Problem Abnormal weight gain (884986434) Abnormal weight gain (783.1) 2011 Problem resolved confirmed [id number]- Problem Headache (80861768) Headache (784.0) 07/09 Problem resolved confirmed [id number]- Problem Aphasia (60284104) Aphasia (784.3) 2018 Problem resolved confirmed [id number]- Problem Heartburn (92615685) Heartburn (787.1) 2012 Problem resolved confirmed [id number]- Problem Urinary frequency (210404111) Urinary frequency (788.41) 2011 Problem resolved confirmed [id number]- Problem Drug allergy (298011099) Other drug allergy (995.27) 2015 Problem resolved confirmed [id number]- Problem Removal of suture (99600837) Encounter for removal of sutures (V58.32) 2012 Problem resolved confirmed [id number]- Problem Screening for malignant neoplasm of prostate (179144474) Screening for prostate cancer (V76.44) 2017 Problem resolved confirmed [id number]- Problem Hypothyroidism (46766693) Hypothyroidism (244.9) 2016 Problem resolved confirmed [id number]- Problem Fibromyalgia (918184391) Fibromyalgia (729.1) 2016 Problem resolved confirmed [id number]- Problem Neck pain (02695074) Neck pain (723.1) 2016 Problem resolved confirmed [id number]- Problem Umbilical hernia (156428202) Umbilical hernia (553.1) 2014 Problem resolved confirmed [id number]- Problem Fainting (185358515) Fainting (780.2) 2017 Problem resolved confirmed [id number]- Problem Headache (85860228) Headache (307.81) 2011 Problem resolved confirmed [id number]- Problem Hypotension (28970923) Hypotension, other (458.8) 2017 Problem resolved confirmed [id number]- Problem Shortness of breath (376538367) Shortness of breath (786.09) 2016 Problem resolved confirmed [id number]- Problem Mass in head or neck (542087227) Neck lump (784.2) 2018 Problem resolved confirmed [id number]- Problem Disorder of hematopoietic system (41025991) Other abnormal findings on blood examination (790.99) 2016 Problem resolved confirmed [id number]- Problem Depressive disorder (29546788) Depressive disorder not elsewhere classified (311) 2017 Problem resolved confirmed [id number]- Problem Hematochezia (944021290) Hematochezia (578.1) 2017 Problem resolved confirmed [id number]- Problem Insomnia (115537893) Insomnia (307.41) 2017 Problem resolved confirmed [id number]- Problem Precordial pain (35293117) Precordial chest pain (786.51) 2016 Problem resolved confirmed [id number]- Problem Paresthesia (84826521) Paresthesia (782.0) 2011 Problem resolved confirmed [id number]- Problem Atypical chest pain (805201790) Atypical chest pain (786.59) 2015 Problem resolved confirmed [id number]- Problem Acute ill-defined cerebrovascular disease (463696197) Acute CVA (436) 2010 Problem resolved confirmed [id number]- Problem Cervical radiculopathy (98700667) Cervical radiculopathy (723.4) 2014 Problem resolved confirmed [id number]- Problem Congestive heart failure (65568994) CHF (428.0) 2012 Problem resolved confirmed [id number]- Problem Facial pain (21372365) Facial pain (784.0) 2017 Problem resolved confirmed [id number]- Problem Increased frequency of urination (573269482) Frequent urination (788.41) 2017 Problem resolved confirmed [id number]- Problem Left lower quadrant pain (338061974) Left lower quadrant abdominal pain (789.04) 2017 Problem resolved confirmed [id number]- Problem Left ventricular hypertrophy (13679163) LVH (429.3) 2010 Problem resolved confirmed [id number]- Problem Bloating (99491293) Bloating (787.3) 09/08 Problem resolved confirmed [id number]- Problem Arthralgia of the ankle and/or foot (937065790) Joint pain, ankle and foot (719.47) 2013 Problem resolved confirmed [id number]- Problem Numbness (25999804) Numbness (782.0) 12/10 Problem resolved confirmed [id number]- Problem White coat hypertension (799715021) White coat hypertension (796.2) 2013 Problem resolved confirmed [id number]- Problem Edema of optic disc (432067783) Papilledema, unspecified (377.00) 2017 Problem resolved confirmed [id number]- Problem Spinal fluid patricia kage at cervical site (997.09) 2016 Problem resolved confirmed [id number]- Plan Of Treatment No Information Insurance Providers Payer Name Payer Address Payer Phone Subscriber Number Group Number Insured Name Patient Relationship to Insured Coverage Start Date Coverage End Date [facility] [address] [place] [id number] Ben Nielsen Self - patient is the insured 7 9 Medical (General) History Surgical History Surgery Date(Month/Year) AppendectomyCholecystectomy: laparoscopi c;
[2023-10-03] MEDS: ALPRAZolam 0.5 mg Tablet PO (11:36)
[2023-10-03] MEDS: duloxetine 30 mg Capsule PO (11:36)
[2023-10-03] MEDS: tamsulosin 0.4 mg Capsule PO (12:24)
[2023-10-03] MEDS: phenazopyridine 100 mg Tablet PO ×2 (12:24→17:13)
--- NOTE | 2023-10-03 14:05 | P.PN_ITS ---
Subjective 2 Subjective: No acute events overnight. Patient did have urinary retention yesterday for which he required straight catheterization 1 time. Since then he is able to pass urine by himself. Seen with spouse at bedside. Today patient does calmer than yesterday. He is apologizing for his behavior with the nursing staff yesterday. Denies any nausea, vomiting, headache. Wants his diet to be advanced. Continues to complain of pain and irritation specially while passing urine. More amenable to oral medications today. Wants to try solid food today. Vitals/I&O/Wt Last Vital Signs Temp 98.2 F 10/03/23 11:20 Pulse 69 10/03/23 11:20 Resp 16 10/03/23 11:20 BP 152/85 10/03/23 11:20 Pulse Ox 94 10/03/23 11:20 O2 Del Method Room Air 10/03/23 11:20 10/02/23 10/03/23 10/03/23 22:59 06:59 14:59 Intake Total 1240 / 2250 1360 / 3610 1140 / 1140 Output Total 200 / 200 450 / 450 Balance 1040 / 2050 1360 / 3410 690 / 690 Weight last 48 hrs Weight 101.333 kg Weight 99.246 kg Weight 98.43 kg Weight 102.058 kg Physical Exam 2 Narrative: General: No acute distress, AO x3, anxious HEENT: PERRLA, pupils bilaterally equal and reactive Chest: Normal vesicular breath sounds, no added sounds, equal good air entry bilaterally CVS: S1-S2 regular, no murmurs, no tachycardia, no gallops, no rubs Abdomen: Soft, nontender, no organomegaly, bowel sounds present Neuro: No focal deficits, no facial deformity, AO x3, power 5/5 in all limbs Urinary Catheter Management: Aguirre: Cath Placed During This Visit: yes Urinary Catheter Date of Insertion: 10/03/23 Urinary Catheter Time of Insertion: 12:13 Data 10/03/23 05:25 10/03/23 05:25 Micro: Microbiology 10/02/23 16:00 Urine Culture - Preliminary Urine Ureter 10/02/23 16:45 Blood Culture - Preliminary Blood SPECIMEN COLLECTED 10/02/23 16:45 Blood Culture - Preliminary Blood SPECIMEN COLLECTED A&P Assessment and plan (1) Acute dehydration: Resolving. No further vomiting. Continue with IV fluids at 100 cc/h. Monitor electrolytes. Advance diet to mechanical soft. (2) Nausea: Small bowel obstruction ruled out on admission. No liver or gallbladder pathology. LFTs within normal limits. Electrolytes normal. No kidney stones on CT abdomen/pelvis. Patient does not have leukocytosis no fever, urinalysis appropriate. Patient does complain of dysuria or difficulty in passing urine along with possible painful urination. Advancing diet as above. Protonix daily, Zofran as needed. IV fluid as above. Given concerns for above for now we will continue with treatment of UTI with IV ceftriaxone. Follow-up blood culture and urine culture. (3) Urinary retention: Cannot rule out chronic cystitis. CT abdomen pelvis showed thickening of urinary bladder wall. Continues to complain of painful micturition. Start on Pyridium. Flomax 0.4 daily. Aguirre catheterization. (4) Chronic pain syndrome: Discussed in detail with the patient. Discussed unfortunately patient will need to follow-up with outpatient pain clinic for further changes in medications. Discussed for now goal will be for patient to be able to tolerate his oral pain medications as before. He is agreeable. Continue with home dose of morphine 15 mg oral twice daily as needed, gabapentin 600 3 times daily, tizanidine 8 mg 3 times daily as needed. Patient is agreeable to start home dose of duloxetine 30 mg oral daily. Start on Xanax 0.5 mg every 12 as needed. (5) Essential (primary) hypertension: Goal blood pressure less than 140/90 mmHg. Continue with home dose of losartan. (6) Abdominal pain: Qualifiers: Abdominal location: generalized Qualified Code(s): R10.84 - Generalized abdominal pain (7) Obstructive sleep apnea: (8) Nicotine dependence, chewing tobacco, uncomplicated: (9) Hypothyroidism: Qualifiers: Hypothyroidism type: acquired Qualified Code(s): E03.9 - Hypothyroidism, unspecified (10) Type 2 diabetes mellitus, without long-term current use of insulin: A1c of 6.6. Discussed with patient regarding dietary modifications. Hold off on insulin sliding scale for now. Qualifiers: Diabetes mellitus complication status: without complication Qualified Code(s): E11.9 - Type 2 diabetes mellitus without complications Plan Full code Soft mechanical diet Protonix for PUD prophylaxis Lovenox for DVT prophylaxis. Care discussed in detail with patient, spouse at bedside. All the questions were answered. Attestations 2 Medical Necessity Statement*: Requires further hospitalization for management of nausea and vomiting leading to dehydration in setting of chronic pain syndrome, UTI, urinary retention with concerns for withdrawal from pain medications. Diagnoses Acute dehydration E86.0 Nausea R11.0 Urinary retention R33.9 Chronic pain syndrome G89.4 Essential (primary) hypertension I10 Abdominal pain R10.84 Abdominal location: generalized Obstructive sleep apnea G47.33 Nicotine dependence, chewing tobacco, uncomplicated F17.220 Acquired hypothyroidism E03.9 Hypothyroidism type: acquired Type 2 diabetes mellitus without complication, without long-term current use of insulin E11.9 Diabetes mellitus complication status: without complication
[2023-10-03] MEDS: gabapentin 300 mg Capsule 600 MG PO ×2 (14:15→22:19)
[2023-10-03] MEDS: quetiapine 25 mg Tablet 50 MG PO (20:18)
[2023-10-04] VITALS (7 sets, daily range): BP systolic 160–175; BP diastolic 82–90; PULSE 54–65; RESP 14–18; TEMP 36.5–36.9; O2SAT 95–96
[2023-10-04] MEDS: enoxaparin 40 mg/0.4 mL Syringe SUBCUT (04:27)
[2023-10-04] MEDS: morphine 4 mg/mL SDV 1 mL 2 MG IVP ×2 (04:28→09:16)
[2023-10-04 05:26] LABS: Basophils # 0.1 10^3/uL (0.0-0.1); Basophils % 0.5 %; Eosinophils # 0.3 10^3/uL (0.0-0.8); Eosinophils % 2.4 %; Hematocrit 43.2 % (37-53); Lymphocytes # 2.6 10^3/uL (0.8-4.8); Lymphocytes % 23.1 %; Mean Corpuscular HGB Conc 33.1 g/dL (30-55); Mean Corpuscular Hemoglobin 29.6 pg (27-33); Mean Corpuscular Volume 89.4 fl (82-101); Mean Platelet Volume 11.2 fL (7.4-10.4); Monocytes # 0.9 10^3/uL (0.2-0.9); Monocytes % 8.4 %; Neutrophils # 7.34 10^3/uL (1.8-7.7); Neutrophils % 65.3 %; Nucleated Red Blood Cells % 0 %; Platelet Count 272 10^3/cmm (157-399); Red Blood Count 4.83 10^6/uL (3.85-5.65); Red Cell Distribution Width 12.4 % (12.1-15.1); White Blood Count 11.23 10^3/uL (3.29-11.43)
[2023-10-04] MEDS: gabapentin 300 mg Capsule 600 MG PO (06:00)
[2023-10-04 06:44] LABS: Alanine Aminotransferase 9 U/L (0-41); Albumin Level 3.6 g/dL (3.5-5.2); Alkaline Phosphatase 57 U/L (40-130); Aspartate Amino Transferase 11 U/L (0-40); Blood Urea Nitrogen 6 mg/dL (6-20); Calcium 7.9 mg/dL (8.5-10.5); Carbon Dioxide 24 mmol/L (22-29); Chloride 103 mmol/L (98-107); Globulin 2.4 g/dL (1.3-4.6); Glomerular Filtration Rate 115.8 mL/min (90-130); Glucose 106 mg/dL (65-115); Osmolality Calculated 282 mOsm/kg (285-295); Sodium 137 mmol/L (136-145); Total Bilirubin 0.5 mg/dL (0.15-1.2)
[2023-10-04 06:47] LABS: Anion Gap 14.2 (5-19); Potassium 4.2 mmol/L (3.5-5.1)
[2023-10-04] MEDS: sodium chloride 0.9% 1,000 ML 100 ML IV (09:10)
[2023-10-04] MEDS: pantoprazole 40 mg SDV IVP (09:10)
[2023-10-04] MEDS: losartan 50 mg Tablet PO (09:10)
[2023-10-04] MEDS: duloxetine 30 mg Capsule PO (09:10)
[2023-10-04] MEDS: docusate sodium 100 mg Capsule PO (09:10)
[2023-10-04] MEDS: tamsulosin 0.4 mg Capsule PO (09:10)
[2023-10-04] MEDS: cefTRIAXone 1,000 MG in sodium chloride 0.9% (plus) 50 ML 100 MG IV (09:11)
[2023-10-04] MEDS: phenazopyridine 100 mg Tablet PO (09:11)
--- NOTE | 2023-10-04 09:36 | PC.SOCIAL ---
IMM Update pg 2 of IMM Updated and reviewed w/ patient. Copy provided and copy dated, initialed and placed in chart.
--- NOTE | 2023-10-04 10:32 | P.DS_ITS ---
Discharge Providers Date of Admission: 10/02/23 01:35 Date of Discharge: October 04, 2023 Attending Provider at Admission: Farhat Dennis MD Attending Provider at Discharge: Parker Jones MD Primary Care Provider: Alec Gabriel MD Diagnoses at Discharge Discharge Diagnosis (1) Acute dehydration: Status: Acute (2) Nausea: Status: Acute (3) Urinary retention: Status: Acute (4) Chronic pain syndrome: Status: Chronic (5) Essential (primary) hypertension: Status: Chronic (6) Abdominal pain: Status: Acute Qualifiers: Abdominal location: generalized Qualified Code(s): R10.84 - Generalized abdominal pain (7) Obstructive sleep apnea: Status: Acute (8) Nicotine dependence, chewing tobacco, uncomplicated: Status: Chronic (9) Hypothyroidism: Status: Chronic Qualifiers: Hypothyroidism type: acquired Qualified Code(s): E03.9 - Hypothyroidism, unspecified (10) Type 2 diabetes mellitus, without long-term current use of insulin: Status: Acute Qualifiers: Diabetes mellitus complication status: without complication Qualified Code(s): E11.9 - Type 2 diabetes mellitus without complications Reason for Visit Reason for Visit: Can't pee Brief History: History as per HPI: Ben Nielsen is a 58 year old male chronic pain on opiates, polyneuropathy diabetic neuropathy per EMG., CAD, HTN, HLD, MDD, anxiety, insomnia, dm2(currently off medications), hypothyroidism, degenerative spine disease presented with chief complaint of not been able to eat secondary to nausea. Patient is not endorsing fever, diarrhea, stating that Dr. Mckinney orthopedic surgeon put him on OxyContin and that put him in the state. He is very unhappy and stating that he would like to change his doctors. He has already changed 4 doctors in last few months. He lives with his , smokes cigar occasionally does not drink alcohol. Patient is stating that he was diagnosed with diabetes now he is off all diabetic medications and his hemoglobin is better off all the medications. Patient is stating that he uses medical marijuana and he has been using it for quite some time, became a little upset when I questioned him regarding marijuana. Patient is stating that he has been wrongly diagnosed with neuropathy he thinks it is because of his bad spine L1-L5 issues. Patient is denying recent traveling, no one is sick at home He became upset again when I asked him if his spouse is also sick with similar symptoms, he started making statements such as I am way off from what the ER did downstairs I had to splint him there are certain diseases which are c ommunicable that is why asked about his spouse's health. Patient is stating that he normally takes morphine and that has worked in his favor Physical Exam Narrative: General: No acute distress, AO x3, anxious HEENT: PERRLA, pupils bilaterally equal and reactive Chest: Normal vesicular breath sounds, no added sounds, equal good air entry bilaterally CVS: S1-S2 regular, no murmurs, no tachycardia, no gallops, no rubs Abdomen: Soft, nontender, no organomegaly, bowel sounds present Neuro: No focal deficits, no facial deformity, AO x3, power 5/5 in all limbs Urinary Catheter Management: Aguirre: Cath Placed During This Visit: yes Reason for Continuing Indwelling Catheter: Acute Urinary Retention or Obstruction Urinary Catheter Date of Insertion: 10/03/23 Urinary Catheter Time of Insertion: 12:13 Discharge Data Studies Completed and Pending Pending at discharge Category Date Time Status Blood Culture Stat Lab 10/02/23 16:45 Results Urine Culture Stat Lab 10/02/23 16:00 Results Laboratory Results WBC 11.23 10^3/uL (3.29-11.43) 10/04/23 04:40 RBC 4.83 10^6/uL (3.85-5.65) 10/04/23 04:40 Hgb 14.30 g/dL (11.27-16.99) 10/04/23 04:40 Hct 43.2 % (37-53) 10/04/23 04:40 MCV 89.4 fl (82-101) 10/04/23 04:40 MCH 29.6 pg (27-33) 10/04/23 04:40 MCHC 33.1 g/dL (30-55) 10/04/23 04:40 RDW 12.4 % (12.1-15.1) 10/04/23 04:40 Plt Count 272 10^3/cmm (157-399) 10/04/23 04:40 MPV 11.2 fL (7.4-10.4) H 10/04/23 04:40 Neut % (Auto) 65.3 % 10/04/23 04:40 Lymph % (Auto) 23.1 % 10/04/23 04:40 Story % (Auto) 8.4 % 10/04/23 04:40 Eos % (Auto) 2.4 % 10/04/23 04:40 Baso % (Auto) 0.5 % 10/04/23 04:40 Neut # (Auto) 7.34 10^3/uL (1.8-7.7) 10/04/23 04:40 Lymph # (Auto) 2.6 10^3/uL (0.8-4.8) 10/04/23 04:40 Story # (Auto) 0.9 10^3/uL (0.2-0.9) 10/04/23 04:40 Eos # (Auto) 0.3 10^3/uL (0.0-0.8) 10/04/23 04:40 Baso # (Auto) 0.1 10^3/uL (0.0-0.1) 10/04/23 04:40 Nucleated RBC % (auto) 0 % 10/04/23 04:40 Nucleated RBCs # 0.0 /100WBC 10/04/23 04:40 Sodium 137 mmol/L (136-145) 10/04/23 06:09 Potassium 4.2 mmol/L (3.5-5.1) 10/04/23 06:09 Chloride 103 mmol/L (98-107) 10/04/23 06:09 Carbon Dioxide 24 mmol/L (22-29) 10/04/23 06:09 Anion Gap 14.2 (5-19) 10/04/23 06:09 BUN 6 mg/dL (6-20) 10/04/23 06:09 Creatinine 0.7 mg/dL (0.7-1.2) 10/04/23 06:09 GFR Calculation 115.8 mL/min (90-130) 10/04/23 06:09 Glucose 106 mg/dL (65-115) 10/04/23 06:09 Estimat Average Glucose 143 10/02/23 04:28 Hemoglobin A1c 6.6 % (4.0-6.0) H 10/02/23 04:28 Calculated Osmolality 282 mOsm/kg (285-295) L 10/04/23 06:09 Calcium 7.9 mg/dL (8.5-10.5) L 10/04/23 06:09 Phosphorus 3.4 mg/dL (2.5-4.5) 10/02/23 04:28 Magnesium 2.1 mg/dL (1.7-2.3) 10/02/23 04:28 Total Bilirubin 0.5 mg/dL (0.15-1.2) 10/04/23 06:09 AST 11 U/L (0-40) 10/04/23 06:09 ALT 9 U/L (0-41) 10/04/23 06:09 Alkaline Phosphatase 57 U/L (40-130) 10/04/23 06:09 C-Reactive Protein 3.0 mg/L (0.0-4.9) 10/02/23 04:28 NT-Pro-B Natriuret Pep 65 pg/mL (0-125) 10/01/23 22:35 Total Protein 6.0 g/dL (6.6-8.7) L 10/04/23 06:09 Albumin 3.6 g/dL (3.5-5.2) 10/04/23 06:09 Globulin 2.4 g/dL (1.3-4.6) 10/04/23 06:09 Lipase 11 U/L (13-60) L 10/01/23 22:35 Prostate Specific Ag 1.190 ng/mL (0-4) 10/03/23 05:25 Urine Color Dark yellow (Yellow) A 10/02/23 00:10 Urine Appearance Clear (CLEAR) 10/02/23 00:10 Urine pH 5 (5-7) 10/02/23 00:10 Ur Specific [place] 1.025 (1.005-1.030) 10/02/23 00:10 Urine Protein Trace (Negative) 10/02/23 00:10 Urine Glucose (UA) Norm (Normal) 10/02/23 00:10 Urine Ketones 2+ (Negative) H 10/02/23 00:10 Urine Blood Neg (Negative) 10/02/23 00:10 Urine Nitrate Negative (Negative) 10/02/23 00:10 Urine Bilirubin 1+ (Negative) H 10/02/23 00:10 Urine Urobilinogen Neg mg/dL (Negative) 10/02/23 00:10 Ur Leukocyte Esterase Negative (Negative) 10/02/23 00:10 Urine RBC None /hpf (0-2) 10/02/23 00:10 Urine WBC 0-4 /hpf (0-5) H 10/02/23 00:10 Ur Squamous Epith Cells None /hpf (0-5) 10/02/23 00:10 Amorphous Sediment Not Reportable 10/02/23 00:10 Urine Bacteria Trace /hpf (NONE) 10/02/23 00:10 Urine Mucus 3+ /hpf 10/02/23 00:10 Urine Opiates Screen Positive ng/mL (Negative) H 10/02/23 00:10 Ur Barbiturates Screen Negative ng/mL (Negative) 10/02/23 00:10 Ur Phencyclidine Scrn Negative ng/mL (Negative) 10/02/23 00:10 Ur Amphetamines Screen Negative ng/mL (Negative) 10/02/23 00:10 U Benzodiazepines Scrn Negative ng/mL (Negative) 10/02/23 00:10 Urine Cocaine Screen Negative ng/mL (Negative) 10/02/23 00:10 U Marijuana (THC) Screen Positive ng/mL (Negative) H 10/02/23 00:10 Microbiology 10/02/23 16:00 Urine Ureter Urine Culture - Final 10/02/23 16:45 Blood Blood Culture - Preliminary NEGATIVE TO DATE 10/02/23 16:45 Blood Blood Culture - Preliminary NEGATIVE TO DATE Vitals Last Vital Signs Temp 98.4 F 10/04/23 07:29 Pulse 65 10/04/23 07:29 Resp 18 10/04/23 09:16 BP 160/90 10/04/23 07:29 Pulse Ox 96 10/04/23 07:29 O2 Del Method Room Air 10/04/23 07:29 Discharge Plan Discharge Patient Disposition: Home Condition: Stable Prescriptions: New tamsulosin 0.4 mg Capsule 0.4 mg PO DAILY Qty: 30 0RF phenazopyridine 100 mg Tablet 100 mg PO TIDPC Qty: 10 0RF alprazolam 0.5 mg Tablet 0.5 mg PO BID PRN (Reason: Anxiety) Qty: 14 0RF Continued melatonin 5 mg tablet 10 mg PO BEDTIME albuterol sulfate 90 mcg/actuation HFA aerosol inhaler 2 inh INHALATION Q4H PRN (Reason: shortness of breath or wheezing) Qty: 8.5 1RF Rx Instructions: 340 B medications (DME) CPAP supplies See Rx Instructions .Route .MEDSUPPLY Qty: 1 0RF Rx Instructions: Mask, tubing, filters. (DME) blood-glucose meter [[facility] Ultra2 Meter[facility] See Rx Instructions .Route Qty: 1 0RF Rx Instructions: to use to check blood sugar once daily (DME) OneTouch Ultra Test Strip See Rx Instructions .Route Qty: 100 3RF Rx Instructions: to check blood sugar once daily in onetouch meter supply tizanidine 4 mg tablet 8 mg PO TID 30 Days Qty: 180 0RF gabapentin 300 mg capsule 600 mg PO TID 30 Days Qty: 90 0RF morphine 15 mg tablet 15 mg PO BID PRN (Reason: pain (scale score 7-10)) 30 Days Qty: 60 0RF duloxetine [Cymbalta] 30 mg capsule,delayed release(DR/EC) 30 mg PO DAILY Qty: 30 1RF naloxone [Narcan] 4 mg/actuation spray,non-aerosol 4 mg intranasal Q2M PRN (Reason: opioid overdose) Qty: 2 3RF Rx Instructions: spray 1 dose into 1 nostril alternate nostrils w ea dose until help arrives (DME) back brace [Back Support S/M] [facility] See Rx Instructions .Route Qty: 1 0RF Rx Instructions: As directed (DME) back brace [facility] See Rx Instructions .ROUTE .MEDSUPPLY Qty: 1 0RF Rx Instructions: As directed furosemide 40 mg tablet 40 mg PO BID PRN (Reason: weight gain) Qty: 180 3RF (DME) AUTO - TITRATING CPAP 6-10CM See Rx Instructions .Route .MEDSUPPLY Qty: 1 0RF Rx Instructions: As directed (DME) rollaid walker with chair See Rx Instructions .Route .MEDSUPPLY Qty: 1 0RF Rx Instructions: As directed losartan 50 mg tablet 50 mg PO DAILY Qty: 30 0RF quetiapine [Seroquel] 25 mg tablet 25 mg PO BID PRN (Reason: anxiety) Qty: 60 2RF Rx Instructions: may take one tablet twice per day as needed for anxiety quetiapine [Seroquel] 50 mg tablet 50 mg PO BEDTIME Qty: 30 2RF Rx Instructions: Take one tablet at bedtime pantoprazole 40 mg tablet,delayed release (DR/EC) 40 mg PO QAM nitroglycerin [Nitrostat] 0.4 mg Tablet, Sublingual 0.4 mg SUBLINGUAL Q5M PRN (Reason: Chest Pain) Rx Instructions: do not exceed 3 doses per episode methocarbamol 750 mg tablet 750 mg PO Q6H PRN (Reason: spasms) Qty: 20 0RF naproxen [Naprosyn] 500 mg tablet 500 mg PO BID PRN (Reason: pain) Qty: 20 0RF Discharge Orders: Discharge Order (Routine); Ordered 10/04/23 Ordered By: Parker Jones Referrals: Alec Gabriel MD [Primary Care Provider] - 10/28/23 3:30 pm () Naun Ho [Referring] - (Chronic urinary retention) Discharge Diet: Regular Discharge Activity: Resume usual activity and Increase activity as tolerated Patient Instructions: Dehydration - Adult, Phenazopyridine (By mouth), Alprazolam (By mouth), Tamsulosin (By mouth), Aguirre Catheter Care, Urinary Retention in Men (ED), Abdominal Pain (ED), Opioid Safety, Pain Management Discharge Attestations Time Spent in Discharge Care*: greater than 30 min Specific Discharge Activities: educating patient, educating and/or supporting family/caregiver, discussing with pcp/other providers, discussing with insurance case manager/social workers/dc planners, documenting/other paperwork and evaluating patient/reviewing data Status at Discharge: Cognitive status at discharge: cognitively intact , Behavioral status at discharge: cooperative , Functional status at discharge: uses cane/walker , Overall status at discharge: patient is progressing back to baseline Quality Metrics Clinical Quality Measures [ No reported AMI, CVA or VTE this stay] Coding Level of Care Code Acute Code for Chg Fwd Diagnoses Acute dehydration E86.0 Nausea R11.0 Urinary retention R33.9 Chronic pain syndrome G89.4 Essential (primary) hypertension I10 Abdominal pain R10.84 Abdominal location: generalized Obstructive sleep apnea G47.33 Nicotine dependence, chewing tobacco, uncomplicated F17.220 Acquired hypothyroidism E03.9 Hypothyroidism type: acquired Type 2 diabetes mellitus without complication, without long-term current use of insulin E11.9 Diabetes mellitus complication status: without complication
--- NOTE | 2023-10-04 10:59 | PC.CHAP ---
Pastoral Care Encounter/Spiritual Assessment Type of Contact [] Declined emts visit [] Patient/Family/Request visit [] Outpatient visit [x] Follow-up visit [] Physician referral [] Code/Alert [x] Routine visit [] Staff referral [] Actively dying [] Patient sleeping [] Family support [] [] Out of room [] Palliative care [] [] Receiving care in room [] Pre-surgical visit [] Trauma [] Long length of stay [] ICU visit [] Other: Relational/Emotional Strength [x] Patient feels connected with others/family/visitors/staff [] Distress [] Loneliness/isolation [] Abandonment Spirituality of Patient [x] Person of Janna [x] Attends Congregation of their Janna [x] Believes in Prayer [x] Reads Bible or Adventist materials [] There are Spiritual issues to be addressed [employer] Interventions [x] Prayer [x] Active listening [x] Non-anxious presence [] Spiritual/emotional support [] Crisis/trauma care [] Spiritual counseling [] Bereavement support [] Provided bereavement packet [] Provided Bible/devotional materials [] Provided toy/stuffed animal, coloring book to patient or family member [] Provided Communion [] Anointing/[place] [] Salvation [] Completed spiritual assessment [x] Other: Conversation Impact on Illness or Injury [] Angry [] Fearful [] Anxious [] Often cries [] Exhaustion [] Unable to work [] Unable to attend uatsdin [] Unable to walk/stand [] Unable to read [] Unable to drive [] Unable to eat/drink [] Unable to sleep [] Unable to be with family [] Patient intubated [] Other: Summary Pastoral Exp. Very Positive Time spent with patient 1 Hr.
== END 2023-10-04 12:50 | disposition home or self-care (01) | DRG 690 ==
LOC: ER 10-02 01:27 → MEDSURG 10-02 04:07
PROVIDERS: Admitting Provider Internal Medicine; Emergency Provider Emergency Medicine; PCP Family Medicine; Visit Provider Student in an Organized Health Care Education/Training Program
DX: N39.0 Urinary tract infection, site not specified (principal); I50.32 Chronic diastolic (congestive) heart failure; F33.9 Major depressive disorder, recurrent, unspecified; I69.954 Hemiplegia and hemiparesis following unspecified cerebrovascular disease affecting left non-dominant side; F11.23 Opioid dependence with withdrawal; E86.0 Dehydration; G89.4 Chronic pain syndrome; M54.50 Low back pain, unspecified; E11.42 Type 2 diabetes mellitus with diabetic polyneuropathy; I25.10 Atherosclerotic heart disease of native coronary artery without angina pectoris; I11.0 Hypertensive heart disease with heart failure; E78.5 Hyperlipidemia, unspecified; F41.9 Anxiety disorder, unspecified; G47.00 Insomnia, unspecified; E03.9 Hypothyroidism, unspecified; F17.220 Nicotine dependence, chewing tobacco, uncomplicated; Z86.16 Personal history of COVID-19; Z86.010 Personal history of colon polyps; I25.2 Old myocardial infarction; Z86.14 Personal history of Methicillin resistant Staphylococcus aureus infection; R10.84 Generalized abdominal pain; G47.33 Obstructive sleep apnea (adult) (pediatric); R11.0 Nausea; K76.0 Fatty (change of) liver, not elsewhere classified; R33.9 Retention of urine, unspecified; T40.2X5A Adverse effect of other opioids, initial encounter
CPT/HCPCS: 36415; 51702; 80048; 80053; 80306; 81001; 83036; 83690; 83735; 83880; 84100; 84153; 85025; 86140; 87040; 87086; 96361; 96372; 96374; 96375; 96376; 99285; C9113; J0696; J1650; J2270; J2405; J7030

== ENCOUNTER 2023-10-07 18:29 | Emergency (ER) | payer MEDICARE, SELFPAY ==
[2023-10-07 18:38] VITALS: BP 198/96; PULSE 80; RESP 17; TEMP 36.8; O2SAT 95; BMI 31.1
--- NOTE | 2023-10-07 19:56 | ED_ITS ---
HPI - Male Genitourinary General: Chief complaint: Urogenital-Male Stated complaint: Cath leaking at penis not urinating Time Seen by Provider: 10/07/23 19:37 Source: patient Mode of arrival: ambulatory Limitations: no limitations History of Present Illness: Patient is a 58-year-old male who presents to the emergency department complaining of Aguirre catheter issue today. Patient had catheter placed when he was discharged from the hospital, states that normally it was draining appropriately however today is only drained a total of 400 mL whereas normally he has to empty it multiple times. He is also noting some increase in suprapubic abdominal discomfort. He is adamant that he wants the Aguirre catheter taken out and sent home without one. He is denying any other symptoms at this time. Complaint: other (Aguirre catheter issue) Onset (ago): hour(s) Duration: constant Context: indwelling catheter Associated symptoms: Deny dysuria, nausea or vomiting Review of Systems General: Reports: 10 or more systems reviewed and unremarkable except in HPI and below Const: Denies: fever(s), chills or fatigue Eyes: Denies: change in vision ENMT: Denies: throat pain, ear or mastoid pain or nasal discharge Card: Denies: chest pain, palpitations, swelling of feet/ankles or lightheadedness Resp: Denies: dyspnea, productive cough or wheezing GI: Reports: abdominal pain; Denies: nausea, vomiting, diarrhea or constipation : Reports: other (Aguirre catheter issue); Denies: flank pain, difficulty urinating, dysuria or urinary frequency Musc: Denies: neck pain, back pain or joint pain Skin/Breast: Denies: rash Neuro: Denies: headache(s), numbness in extremities or weakness in extremities PFS ED PFSH: Medical History Duodenal erosion Acute upper gastrointestinal bleeding Liver mass Leukocytosis Hyponatremia Chronic prescription opiate use Intractable nausea and vomiting Near syncope Nicotine dependence, chewing tobacco, uncomplicated Atherosclerosis of coronary artery Chest pain Psychiatric care Abnormal stress test COVID-19 History of colon polyps History of CVA (cerebrovascular accident) 2005 --left-sided weakness Nephrolithiasis Acute bronchitis Congestive heart failure Chronic low back pain Dizziness Major depressive disorder, recurrent, moderate Chronic neck pain History of VT (myocardial infarction) History of TIA (transient ischemic attack) Left ventricular hypertrophy Hypertriglyceridemia MRSA (methicillin resistant Staphylococcus aureus) Bright red rectal bleeding Internal hemorrhoids Diastolic heart failure Hypothyroidism Essential (primary) hypertension Surgical History H/O esophagogastroduodenoscopy (05/10/20) History of colonoscopy 12/2014 --small tubular adenoma, limited diverticulosis 02/2018 --small internal hemorrhoids S/P appendectomy S/P cholecystectomy S/P hernia repair ventral with mesh x 2 H/O neck surgery x 5 ( some of those were for a postop MRSA infection ) Family History Mother Congestive heart failure (CHF) Thyroid disease Sister Thyroid disease Father Atrial fibrillation Brother Heart disease HX STENTS Other CAD (coronary artery disease) Diabetes Social History Smoking and tobacco/nicotine status: unknown if used tobacco/nicotine Second hand smoke exposure: Yes Alcohol intake: never Substance/Drug Use: never Lives independently: Yes Household members: spouse Marital status: Current occupational status: disabled Do you think of yourself as: Straight/Heterosexual Current gender identity: Male Physical Exam Const: COMMON NORMALS: no acute distress and no limitations GENERAL APPEARANCE: cooperative, comfortable and well developed ORIENTATION/CONSCIOUSNESS: Yes awake HENMT: COMMON NORMALS: normocephalic, atraumatic and hearing grossly normal bilaterally HEAD & SCALP: normocephalic and atraumatic Eye: COMMON NORMALS: Equal, round and reactive pupils present, EOMs intact bilaterally and conjunctivae normal CONJUNCTIVA: Yes conjunctivae normal PUPIL: Yes Equal, round and reactive pupils present Neck/C-Spine: COMMON NORMALS: full ROM, supple and no JVD Resp: COMMON NORMALS: normal respiratory effort, No retractions, No use of accessory muscles and clear to auscultation bilaterally AUSCULTATION: clear to auscultation bilaterally Cardio: COMMON NORMALS: no JVD, regular rate, regular rhythm, No clicks present (Cardio), No murmurs present (Cardio) and No rub (Cardio) RATE: regular rate RHYTHM: regular rhythm GI: COMMON NORMALS: Normal to inspection, nondistended, normoactive bowel sounds present and Soft to palpation INSPECTION: Yes abdominal distension (Mild) AUSCULTATION: Yes normoactive bowel sounds PALPATION: Yes Soft to palpation RECTAL EXAM: Yes deferred OTHER: Mild reproducible suprapubic tenderness to palpation : COMMON NORMALS: Yes no CVA tenderness BLADDER/KIDNEY EXAM: Yes no CVA tenderness OTHER: Indwelling Aguirre catheter present draining matt-colored urine Back/Pelvis: COMMON NORMALS: no CVA tenderness Extremity: COMMON NORMALS: normal to inspection, full ROM and capillary refill normal Skin: COMMON NORMALS: no rashes or lesions noted GENERAL SKIN EXAM: no rashes or lesions noted Course Vital Signs: Vital signs: Vital Signs Temperature 98.3 F 10/07/23 18:38 Pulse Rate 69 10/07/23 20:30 Respiratory Rate 18 10/07/23 20:30 Blood Pressure 186/107 10/07/23 20:30 Pulse Oximetry 97 10/07/23 20:30 Oxygen Delivery Me thod Room Air 10/07/23 18:38 MDM - Male Medical Decision Making Patient presented as he wanted his catheter removed, stating he thought it was dysfunctioning. Upon further questioning he has not been putting the catheter below his bladder, as this has not been allowing it to drain properly. However he is adamant that he wants it removed. Once the bag is placed close bladder it suddenly drains 200+ milliliters of urine. Patient is instructed that if he continues to have trouble urinating he is going to need to return for placement of a catheter again. He states he will do this. He has urology follow-up next week as well as primary care follow-up later this week. Other return precautions given. No radiology studies performed this visit Discharge Plan Discharge Patient Disposition: Home Clinical Impression: Aguirre catheter problem Qualifiers: Encounter type: initial encounter Qualified Code(s): T83.9XXA - Unspecified complication of genitourinary prosthetic device, implant and graft, initial encounter Condition: Stable Prescriptions: No Action melatonin 5 mg tablet 10 mg PO BEDTIME albuterol sulfate 90 mcg/actuation HFA aerosol inhaler 2 inh INHALATION Q4H PRN (Reason: shortness of breath or wheezing) Qty: 8.5 1RF Rx Instructions: 340 B medications (DME) CPAP supplies See Rx Instructions .Route .MEDSUPPLY Qty: 1 0RF Rx Instructions: Mask, tubing, filters. (DME) blood-glucose meter [OneTouch Ultra2 Meter] [facility] [place] See Rx Instructions .Route Qty: 1 0RF Rx Instructions: to use to check blood sugar once daily (DME) OneTouch Ultra Test Strip See Rx Instructions .Route Qty: 100 3RF Rx Instructions: to check blood sugar once daily in onetouch meter supply tizanidine 4 mg tablet 8 mg PO TID 30 Days Qty: 180 0RF gabapentin 300 mg capsule 600 mg PO TID 30 Days Qty: 90 0RF morphine 15 mg tablet 15 mg PO BID PRN (Reason: pain (scale score 7-10)) 30 Days Qty: 60 0RF duloxetine [Cymbalta] 30 mg capsule,delayed release(DR/EC) 30 mg PO DAILY Qty: 30 1RF naloxone [Narcan] 4 mg/actuation spray,non-aerosol 4 mg intranasal Q2M PRN (Reason: opioid overdose) Qty: 2 3RF Rx Instructions: spray 1 dose into 1 nostril alternate nostrils w ea dose until help arrives (DME) back brace [Back Support S/M] Misc See Rx Instructions .Route Qty: 1 0RF Rx Instructions: As directed (DME) [facility] See Rx Instructions .ROUTE .MEDSUPPLY Qty: 1 0RF Rx Instructions: As directed furosemide 40 mg tablet 40 mg PO BID PRN (Reason: weight gain) Qty: 180 3RF (DME) AUTO - TITRATING CPAP 6-10CM See Rx Instructions .Route .MEDSUPPLY Qty: 1 0RF Rx Instructions: As directed (DME) rollaid walker with chair See Rx Instructions .Route .MEDSUPPLY Qty: 1 0RF Rx Instructions: As directed losartan 50 mg tablet 50 mg PO DAILY Qty: 30 0RF quetiapine [Seroquel] 25 mg tablet 25 mg PO BID PRN (Reason: anxiety) Qty: 60 2RF Rx Instructions: may take one tablet twice per day as needed for anxiety quetiapine [Seroquel] 50 mg tablet 50 mg PO BEDTIME Qty: 30 2RF Rx Instructions: Take one tablet at bedtime tamsulosin 0.4 mg Capsule 0.4 mg PO DAILY Qty: 30 0RF phenazopyridine 100 mg Tablet 100 mg PO TIDPC Qty: 10 0RF alprazolam 0.5 mg Tablet 0.5 mg PO BID PRN (Reason: Anxiety) Qty: 14 0RF pantoprazole 40 mg tablet,delayed release (DR/EC) 40 mg PO QAM nitroglycerin [Nitrostat] 0.4 mg Tablet, Sublingual 0.4 mg SUBLINGUAL Q5M PRN (Reason: Chest Pain) Rx Instructions: do not exceed 3 doses per episode methocarbamol 750 mg tablet 750 mg PO Q6H PRN (Reason: spasms) Qty: 20 0RF naproxen [Naprosyn] 500 mg tablet 500 mg PO BID PRN (Reason: pain) Qty: 20 0RF Discharge Orders: Discharge ED (Routine); Ordered 10/07/23 Ordered By: Caleb Solitario Referrals: Alec Gabriel MD [Primary Care Provider] - Discharge Diet: Usual diet Discharge Activity: Increase activity as tolerated Patient Instructions: Aguirre Catheter Placement and Care (ED) Activity Restrictions/Additional Instructions: If you have any issues urinating please return for catheter placement. Keep follow-up for urology and primary care as scheduled. With any other new or concerning symptoms please return for reevaluation. 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
[2023-10-07 20:30] VITALS: BP 186/107; PULSE 69; RESP 18; O2SAT 97
== END 2023-10-07 20:32 | disposition home or self-care (01) ==
PROVIDERS: Emergency Provider Physician Assistant; PCP Family Medicine
DX: T83.9XXA Unspecified complication of genitourinary prosthetic device, implant and graft, initial encounter (principal); I25.10 Atherosclerotic heart disease of native coronary artery without angina pectoris; Z86.73 Personal history of transient ischemic attack (TIA), and cerebral infarction without residual deficits; I11.0 Hypertensive heart disease with heart failure; I50.9 Heart failure, unspecified; I25.2 Old myocardial infarction
CPT/HCPCS: 99282

== ENCOUNTER → 2024-04-17 14:11 | Outpatient (BNVA) | payer MEDICARE, SELFPAY | PROVIDERS: PCP Family Medicine; Visit Provider Nurse Practitioner Psychiatric/Mental Health | DX: Z79.899 Other long term (current) drug therapy (principal) | CPT/HCPCS: 80053; 80061; 83036 ==

== ENCOUNTER 2024-05-03 13:57 | Emergency (ER) | payer MEDICARE, SELFPAY ==
[2024-05-03] VITALS (7 sets, daily range): BP systolic 102–136; BP diastolic 58–83; PULSE 66–94; RESP 25; TEMP 36.6; O2SAT 92–96
[2024-05-03 14:31] LABS: Basophils % 0.3 %; Eosinophils # 0.2 10^3/uL (0.0-0.8); Eosinophils % 1.4 %; Hematocrit 46.6 % (37-53); Lymphocytes # 1.5 10^3/uL (0.8-4.8); Lymphocytes % 11.9 %; Mean Corpuscular Hemoglobin 28.9 pg (27-33); Mean Corpuscular Volume 87.6 fl (82-101); Monocytes # 0.9 10^3/uL (0.2-0.9); Monocytes % 7.2 %; Neutrophils % 78.8 %; Nucleated Red Blood Cells % 0 %; Platelet Count 325 10^3/cmm (157-399); Red Blood Count 5.32 10^6/uL (3.85-5.65); Red Cell Distribution Width 13.4 % (12.1-15.1); White Blood Count 12.69 10^3/uL (3.29-11.43)
--- NOTE | 2024-05-03 14:38 | ED_ITS ---
HPI - Abdominal Pain 2 General: Chief Complaint: Abdominal Pain Stated Complaint: abd pain Time Seen by Provider: 05/03/24 14:25 Source: patient Mode of arrival: ambulatory Limitations: no limitations History of Present Illness: Patient is a 58-year-old male presents to ED today along with his significant other for complaint of abdominal pain over the past 2 to 3 days. Patient feels like pain has been constant since onset mainly located to the right side of his abdomen. Previous abdominal surgeries include a cholecystectomy and appendectomy. Patient states he is continuing to eat and drink normally. No vomiting. Patient has a longstanding history of chronic narcotic use for chronic pain. Patient takes up to 30mg of morphine daily. He does have a history of GI bleed. He is not complaining of any black or tarry stool. He states over the past 3 days he has had one small bowel movement. Has not had a normal bowel movement in several weeks. He states he does take MiraLAX and lactulose daily to help with constipation. Pertinent past history: constipation and gastrointestinal bleeding Onset (ago): day(s) Pain Consistency: constant Location: RUQ and RLQ Severity: moderate Radiation: none Migration to: no migration Exacerbating factors: nothing Relieving factors: nothing Associated Symptoms: Reports no associated symptoms and constipation; Denies chills, diarrhea, dysuria, fever(s), hematochezia, melena, nausea and vomiting Related Data Home Medications ?Medication ?Instructions ?Recorded ?Confirmed melatonin 5 mg tablet 10 mg PO BEDTIME sleep 10/2004/30/24 nitroglycerin 0.4 mg sublingual 0.4 mg sublingual Q5M PRN Chest 07/14/23 04/30/24 tablet (Nitrostat) Pain morphine 15 mg tablet,extended 15 mg PO BID 01/27/24 0 04/30/24 release naloxegol 25 mg tablet (Movantik) 25 mg PO QAM 5 04/30/24 Previous Rx's ?Medication ?Instructions ?Recorded CPAP supplies #1 ea 11/29/20 blood sugar diagnostic (OneTouch #100 ea 01/26/21 Ultra Test strips) blood-glucose meter (OneTouch #1 ea 01/26/21 Ultra2 Meter) albuterol sulfate 90 mcg/actuation 2 inh inhalation Q4 H PRN shortness 03/24/21 aerosol inhaler of breath or wheezing #8.5 g nguyen back brace (Back Support S/M) #1 ea 05/15/21 back brace #1 ea 05/30/21 naloxone 4 mg/actuation nasal 4 mg intranasal Q2M PRN opioid 01/30/22 spray (Narcan) overdose #2 ea furosemide 40 mg tablet 40 mg PO BID PRN weight gain #180 04/03/22 tabs AUTO - TITRATING CPAP 6-10CM #1 ea 01/17/23 naproxen 500 mg tablet (Naprosyn) 500 mg PO BID PRN pa in #20 tabs 08/29/23 morphine 15 mg immediate release 15 mg PO BID PRN pain (scale score 09/10/23 tablet 7-10) 30 days #60 tabs rollaid walker with chair #1 ea 09/11/23 tamsulosin 0.4 mg capsule 0.4 mg PO DAILY #30 caps clonidine HCl 0.1 mg tablet 0.1 mg PO DAILY PRN agitat ion #30 10/08/23 tabs duloxetine 30 mg capsule,delayed 30 mg PO DAILY nerve medication 11/14/23 release (Cymbalta) #90 caps gabapentin 300 mg capsule 600 mg (2 x 300 mg) PO BID # 180 11/14/23 caps polyethylene glycol 3350 17 See Rx Instructions PO BRANDON LY #510 11/14/23 gram/dose oral powder (Miralax) grams pantoprazole 40 mg tablet,delayed See Rx Instructions .Route 01/14/24 release .COMPLEX #90 tabs ondansetron 4 mg disintegrating 4 mg PO Q8H PRN nausea and 01/31/24 tablet vomiting #10 tabs quetiapine 50 mg tablet (Seroquel) 100 mg (2 x 50 mg) PO BEDTIME #30 03/13/24 tabs losartan 50 mg tablet See Rx Instructions .Route 0 03/30/24 .COMPLEX #90 tabs lactulose 10 gram/15 mL oral 15 ml PO TID PRN constipa tion #473 04/02/24 solution mL tizanidine 4 mg tablet 8 mg (2 x 4 mg) PO TID muscl e 04/06/24 spasticity 30 days #180 tabs Allergies Allergy/AdvReac Type Severity Reaction Status Date / Time pregabalin (From Lyrica) Allergy Intermediate ADR-Halluci Verified 05/03/24 14:07 nating pineapple Allergy Unknown ALGY-Anaphy Verified 05/03/24 14:07 laxis oxycodone (From OxyContin) Allergy ADR-Gastrointestinal Verified 05/03/24 14:07 Upset levothyroxine sodium (From AdvReac Severe ADR-Halluci Verified 05/03/24 14:07 Euthyrox) nating hydrochlorothiazide AdvReac ADR-Agitate Verified 05/03/24 14:07 d oxycotin Allergy Severe ADR-Confusi Uncoded 05/03/24 14:07 on Review of Systems 2 Const: Denies: fever(s), chills, body aches, fatigue or malaise Card: Denies: chest pain Resp: Denies: dyspnea GI: Reports: abdominal pain and constipation; Denies: nausea, vomiting, diarrhea, hematochezia or melena : Denies: flank pain, difficulty urinating, dysuria, urinary frequency, urinary urgency or urinary hesitancy Musc: Denies: neck pain, back pain, extremity pain, joint swelling or joint redness Skin/Breast: Denies: rash Neuro: Denies: headache(s), numbness in extremities, weakness in extremities, sensory changes or dizziness PFSH ED 2 PFSH: Medical History Duodenal erosion Acute upper gastrointestinal bleeding Liver mass Leukocytosis Hyponatremia Chronic prescription opiate use Intractable nausea and vomiting Near syncope Nicotine dependence, chewing tobacco, uncomplicated Atherosclerosis of coronary artery Chest pain Psychiatric care Abnormal stress test COVID-19 History of colon polyps History of CVA (cerebrovascular accident) 2005 --left-sided weakness Nephrolithiasis Acute bronchitis Congestive heart failure Chronic low back pain Dizziness Major depressive disorder, recurrent, moderate Chronic neck pain History of IA (myocardial infarction) History of TIA (transient ischemic attack) Left ventricular hypertrophy Hypertriglyceridemia MRSA (methicillin resistant Staphylococcus aureus) Bright red rectal bleeding Internal hemorrhoids Diastolic heart failure Hypothyroidism Essential (primary) hypertension Surgical History H/O esophagogastroduodenoscopy (05/10/20) History of colonoscopy 12/2014 --small tubular adenoma, limited diverticulosis 02/2018 --small internal hemorrhoids S/P appendectomy S/P cholecystectomy S/P hernia repair ventral with mesh x 2 H/O neck surgery x 5 ( some of those were for a postop MRSA infection ) Family History Mother Congestive heart failure (CHF) Thyroid disease Sister Thyroid disease Father Atrial fibrillation Brother Heart disease HX STENTS Other CAD (coronary artery disease) Diabetes Social History Smoking and tobacco/nicotine status: former use of tobacco/nicotine Second hand smoke exposure: Yes Alcohol intake: never Substance/Drug Use: never Lives independently: Yes Household members: spouse Marital status: Current occupational status: disabled Do you think of yourself as: Straight/Heterosexual Current gender identity: Male Physical Exam 2 Const: COMMON NORMALS: no acute distress, average body habitus, patient oriented x3, no limitations, healthy appearing, alert and well nourished G ENERAL APPEARANCE: cooperative ORIENTATION/CONSCIOUSNESS: Yes awake, Yes oriented to person, Yes oriented to place and Yes oriented to time Eye: COMMON NORMALS: no scleral icterus Resp: COMMON NORMALS: normal respiratory effort and clear to auscultation bilaterally AUSCULTATION: clear to auscultation bilaterally Cardio: COMMON NORMALS: regular rate and regular rhythm RATE: regular rate RHYTHM: regular rhythm GI: COMMON NORMALS: Normal to inspection, nondistended, normoactive bowel sounds present, Soft to palpation, No hepatosplenomegaly present and no masses INSPECTION: Yes normal to inspection AUSCULTATION: Yes normoactive bowel sounds PALPATION: Yes Soft to palpation, Yes Tenderness to palpation present (GI) (mainly throughout R side abdomen), No Guarding due to palpation present (GI), No Rigid due to palpation and Yes No hepatosplenomegaly present : COMMON NORMALS: Yes no CVA tenderness BLADDER/KIDNEY EXAM: Yes no CVA tenderness Back/Pelvis: COMMON NORMALS: no CVA tenderness and thoracic and lumbar spine normal to inspection Extremity: GENERAL: Yes normal exam except as noted Neuro: COMMON NORMALS: patient oriented x3, moves all extremities, no focal motor deficits and no sensory deficits noted SENSORIUM/ORIENTATION: Yes alert, Yes oriented to person, Yes oriented to place and Yes oriented to time Skin: COMMON NORMALS: no rashes or lesions noted GENERAL SKIN EXAM: no rashes or lesions noted Course 2 Vital Signs: Vital signs: Vital Signs Temperature 97.9 F 05/03/24 14:02 Pulse Rate 74 05/03/24 20:21 Respiratory Rate 25 H 05/03/24 20:21 Blood Pressure 128/81 05/03/24 20:21 Pulse Oximetry 96 05/03/24 20:21 Oxygen Delivery Me thod Room Air 05/03/24 20:21 MDM - Abdominal Pain Medical Decision Making Patient here for what seems to be opioid induced constipation. He clinically appears in no acute distress. Vital signs are stable. Abdominal is nonsurgical clinically. Abdominal XR showing a moderate amount of colonic stool. Mild gaseous and mid abdominal distention may be related to an ileus. No obstructive patterns noted. He has not been vomiting. He is passing gas. He is eating and drinking normally. At this time I have no concern for a bowel obstruction. Enema was attempted here without much success. Patient seems frustrated with this lengthy ED stay. He would like to go home. Patient was given a mixture of milk of magnesia, mineral oil, lactulose to be taken when he gets home. Discussed how he may continue enemas at home. We discussed increasing his lactulose and other [id number] options to help alleviate constipation. He can follow-up with primary care next week. Return to ED precautions discussed. Medical Records I reviewed the patient's medical records. Lab Data I reviewed the patient's lab results. 05/03/24 14:20 05/03/24 14:20 Labs/Radiology: Radiology Impressions Abdomen X-Ray 05/03/24 15:09 IMPRESSION: 1. Mild gaseous distension of mid abdominal small bowel loops which may be related to an ileus. 2. Moderate amount of colonic stool. Laboratory Results WBC 12.69 10^3/uL (3.29-11.43) H 05/03/24 14:20 RBC 5.32 10^6/uL (3.85-5.65) 05/03/24 14:20 Hgb 15.40 g/dL (11.27-16.99) 05/03/24 14:20 Hct 46.6 % (37-53) 05/03/24 14:20 MCV 87.6 fl (82-101) 05/03/24 14:20 MCH 28.9 pg (27-33) 05/03/24 14:20 MCHC 33.0 g/dL (30-55) 05/03/24 14:20 RDW 13.4 % (12.1-15.1) 05/03/24 14:20 Plt Count 325 10^3/cmm (157-399) 05/03/24 14:20 MPV 10.0 fL (7.4-10.4) 05/03/24 14:20 Neut % (Auto) 78.8 % 05/03/24 14:20 Lymph % (Auto) 11.9 % 05/03/24 14:20 [place] % (Auto) 7.2 % 05/03/24 14:20 Eos % (Auto) 1.4 % 05/03/24 14:20 Baso % (Auto) 0.3 % 05/03/24 14:20 Neut # (Auto) 10.00 10^3/uL (1.8-7.7) H 05/03/24 14:20 Lymph # (Auto) 1.5 10^3/uL (0.8-4.8) 05/03/24 14:20 [place] # (Auto) 0.9 10^3/uL (0.2-0.9) 05/03/24 14:20 Eos # (Auto) 0.2 10^3/uL (0.0-0.8) 05/03/24 14:20 Baso # (Auto) 0.0 10^3/uL (0.0-0.1) 05/03/24 14:20 Nucleated RBC % (auto) 0 % 05/03/24 14:20 Nucleated RBCs # 0.0 /100WBC 05/03/24 14:20 Sodium 131 mmol/L (136-145) L 05/03/24 14:20 Potassium 4.1 mmol/L (3.5-5.1) 05/03/24 14:20 Chloride 95 mmol/L (98-107) L 05/03/24 14:20 Carbon Dioxide 23 mmol/L (22-29) 05/03/24 14:20 Anion Gap 17.1 (5-19) 05/03/24 14:20 BUN 11 mg/dL (6-20) 05/03/24 14:20 Creatinine 0.8 mg/dL (0.7-1.2) 05/03/24 14:20 GFR Calculation 99.3 mL/min (90-130) 05/03/24 14:20 Glucose 138 mg/dL (65-115) H 05/03/24 14:20 Calculated Osmolality 274 mOsm/kg (285-295) L 05/03/24 14:20 Calcium 9.1 mg/dL (8.5-10.5) 05/03/24 14:20 Total Bilirubin 0.5 mg/dL (0.15-1.2) 05/03/24 14:20 AST 13 U/L (0-40) 05/03/24 14:20 ALT 16 U/L (0-41) 05/03/24 14:20 Alkaline Phosphatase 76 U/L (40-130) 05/03/24 14:20 Total Protein 7.5 g/dL (6.6-8.7) 05/03/24 14:20 Albumin 4.2 g/dL (3.5-5.2) 05/03/24 14:20 Globulin 3.3 g/dL (1.3-4.6) 05/03/24 14:20 Lipase 12 U/L (13-60) L 05/03/24 14:20 Urine Color Yellow (Yellow) 05/03/24 15:07 Urine Appearance Clear (CLEAR) 05/03/24 15:07 Urine pH 6.0 (5-7) 05/03/24 15:07 Ur Specific [place] 1.022 (1.005-1.030) 05/03/24 15:07 Urine Protein Negative (Negative) 05/03/24 15:07 Urine Glucose (UA) Negative (Normal) 05/03/24 15:07 Urine Ketones Negative (Negative) 05/03/24 15:07 Urine Blood Negative (Negative) 05/03/24 15:07 Urine Nitrate Negative (Negative) 05/03/24 15:07 Urine Bilirubin Negative (Negative) 05/03/24 15:07 Urine Urobilinogen 1.0 mg/dL (Negative) 05/03/24 15:07 Ur Leukocyte Esterase 1+ (Negative) A 05/03/24 15:07 Urine RBC 0-4 /hpf (0-2) H 05/03/24 15:07 Urine WBC 10-15 /hpf (0-5) H 05/03/24 15:07 Ur Squamous Epith Cells 0-4 /hpf (0-5) H 05/03/24 15:07 Amorphous Sediment 1+ /hpf 05/03/24 15:07 Urine Bacteria Trace /hpf (NONE) 05/03/24 15:07 Urine Mucus 1+ /hpf 05/03/24 15:07 All radiology interpretation(s) finalized by discharge Discharge Plan Discharge Patient Disposition: Home Clinical Impression: Ileus Constipation Qualifiers: Constipation type: unspecified constipation type Qualified Code(s): K59.00 - Constipation, unspecified Condition: Stable Prescriptions: No Action melatonin 5 mg tablet 10 mg PO BEDTIME albuterol sulfate 90 mcg/actuation HFA aerosol inhaler 2 inh INHALATION Q4H PRN (Reason: shortness of breath or wheezing) Qty: 8.5 1RF Rx Instructions: 340 B medications (DME) CPAP supplies See Rx Instructions .Route .MEDSUPPLY Qty: 1 0RF Rx Instructions: Mask, tubing, filters. (DME) blood-glucose meter [OneTouch Ultra2 Meter] Misc See Rx Instructions .Route Qty: 1 0RF Rx Instructions: to use to check blood sugar once daily (DME) OneTouch Ultra Test Strip See Rx Instructions .Route Qty: 100 3RF Rx Instructions: to check blood sugar once daily in onetouch meter supply morphine 15 mg tablet 15 mg PO BID PRN (Reason: pain (scale score 7-10)) 30 Days Qty: 60 0RF polyethylene glycol 3350 [Miralax] 17 gram/dose powder See Rx Instructions PO DAILY Qty: 510 3RF Rx Instructions: 1-2 scoops of miralax daily duloxetine [Cymbalta] 30 mg capsule,delayed release(DR/EC) 30 mg PO DAILY Qty: 90 1RF gabapentin 300 mg capsule 600 mg PO BID Qty: 180 1RF morphine 15 mg tablet extended release 15 mg PO BID quetiapine [Seroquel] 50 mg tablet 100 mg PO BEDTIME Qty: 30 6RF Rx Instructions: Take two tablets at bedtime Movantik 25 mg tablet 25 mg PO QAM Rx Instructions: must be taken on empty stomach; no food 1 hr after or 2-3 hrs before dose naloxone [Narcan] 4 mg/actuation spray,non-aerosol 4 mg intranasal Q2M PRN (Reason: opioid overdose) Qty: 2 3RF Rx Instructions: spray 1 dose into 1 nostril alternate nostrils w ea dose until help arrives clonidine HCl 0.1 mg tablet 0.1 mg PO DAILY PRN (Reason: agitation) Qty: 30 3RF Rx Instructions: May take one tab daily as needed for agitation ondansetron 4 mg tablet,disintegrating 4 mg PO Q8H PRN (Reason: nausea and vomiting) Qty: 10 0RF (DME) back brace [Back Support S/M] Misc See Rx Instructions .Route Qty: 1 0RF Rx Instructions: As directed (DME) back brace Misc See Rx Instructions .ROUTE .MEDSUPPLY Qty: 1 0RF Rx Instructions: As directed furosemide 40 mg tablet 40 mg PO BID PRN (Reason: weight gain) Qty: 180 3RF (DME) AUTO - TITRATING CPAP 6-10CM See Rx Instructions .Route .MEDSUPPLY Qty: 1 0RF Rx Instructions: As directed (DME) rollaid walker with chair See Rx Instructions .Route .MEDSUPPLY Qty: 1 0RF Rx Instructions: As directed pantoprazole 40 mg tablet,delayed release (DR/EC) See Rx Instructions .ROUTE .COMPLEX Qty: 90 0RF Dose Instruction: Take 1 tablet by mouth once daily Rx Instructions: Take 1 tablet by mouth once daily losartan 50 mg tablet See Rx Instructions .ROUTE .COMPLEX Qty: 90 3RF Dose Instruction: Take 1 tablet by mouth once daily Rx Instructions: Take 1 tablet by mouth once daily lactulose 10 gram/15 mL solution 15 ml PO TID PRN (Reason: constipation) Qty: 473 0RF tizanidine 4 mg tablet 8 mg PO TID 30 Days Qty: 180 0RF tamsulosin 0.4 mg Capsule 0.4 mg PO DAILY Qty: 30 0RF nitroglycerin [Nitrostat] 0.4 mg Tablet, Sublingual 0.4 mg SUBLINGUAL Q5M PRN (Reason: Chest Pain) Rx Instructions: do not exceed 3 doses per episode naproxen [Naprosyn] 500 mg tablet 500 mg PO BID PRN (Reason: pain) Qty: 20 0RF Discharge Orders: Discharge ED (Routine); Ordered 05/03/24 Ordered By: Dorene Pradhan Referrals: Alec Gabriel MD [Primary Care Provider] - Patient Instructions: Constipation - Adult, Ileus (ED) Activity Restrictions/Additional Instructions: As we discussed, your x-ray today showed constipation as well as a possible ileus which is a slowing of your gut/intestine. Over the next 48 hours I would do a bland liquid diet. Continue all of your home constipation meds. We discussed increasing your lactulose to 30 mL twice daily. You may continue to take syrp-ibs-bwpastd mag citrate or milk of magnesium to help alleviate constipation. We did discuss possible requirement of enemas/suppositories to alleviate any firm stool ball. He may follow-up with primary care next week for any further concerns. He may return to the emergency department at anytime for severe abdominal pain, vomiting, or any other concerns you may have. 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
[2024-05-03 14:42] LABS: Alanine Aminotransferase 16 U/L (0-41); Albumin Level 4.2 g/dL (3.5-5.2); Alkaline Phosphatase 76 U/L (40-130); Anion Gap 17.1 (5-19); Aspartate Amino Transferase 13 U/L (0-40); Blood Urea Nitrogen 11 mg/dL (6-20); Calcium 9.1 mg/dL (8.5-10.5); Carbon Dioxide 23 mmol/L (22-29); Chloride 95 mmol/L (98-107); Globulin 3.3 g/dL (1.3-4.6); Glomerular Filtration Rate 99.3 mL/min (90-130); Glucose 138 mg/dL (65-115); Lipase 12 U/L (13-60); Osmolality Calculated 274 mOsm/kg (285-295); Potassium 4.1 mmol/L (3.5-5.1); Sodium 131 mmol/L (136-145); Total Bilirubin 0.5 mg/dL (0.15-1.2); Total Protein 7.5 g/dL (6.6-8.7)
--- NOTE | 2024-05-03 15:09 | XRR_ITS ---
PROCEDURE INFORMATION: Exam: XR Abdomen Exam date and time: 05/03/2024 3:39 PM Age: 58 years old Clinical indication: Prior surgery; Surgery date: 6+ months; Surgery type: Gb, appy, hernia repair; Abdominal pain; Constipation TECHNIQUE: Imaging protocol: Radiologic exam of the abdomen. Views: 2 Views. Upright and supine views. COMPARISON: CT abdomen pelvis w con* [id number] 09/30/2023 8:37 PM FINDINGS: Gastrointestinal tract: There is moderate amount of colonic stool. There is mild gaseous distension of multiple mid abdominal small bowel loops which may represent an ileus. There is no free air identified. Intraperitoneal space: Right upper quadrant surgical clips are noted consistent with history of prior cholecystectomy. Bones/joints: There are mild degenerative changes of the lumbar spine and hip joints. XR/XR abdomen min 2V [id number] IMPRESSION: 1. Mild gaseous distension of mid abdominal small bowel loops which may be related to an ileus. 2. Moderate amount of colonic stool.
[2024-05-03] MEDS: HYDROMORPHONE HCL 0.5 MG/0.5 ML INJ 1 MG IVP ×2 (16:59→19:20)
[2024-05-03 18:16] LABS: Bilirubin Urine Negative (Negative); Blood Urine Negative (Negative); Glucose Urine UA Negative (Normal); Ketones Urine Negative (Negative); Leukocyte Esterase Urine 1+ (Negative); Nitrate Urine Negative (Negative); Protein Urine Negative (Negative); Specific Gravity, Urine 1.022 (1.005-1.030); Urine Appearance Clear (CLEAR); Urine Color Yellow (Yellow)
[2024-05-03 18:22] LABS: Add Urine Microscopic? YES; Bacteria Urine TRACE /hpf; RBC Urine 0-4 /hpf (0-2); Squamous Epithelial Cell Urine 0-4 /hpf (0-5)
[2024-05-03 18:23] LABS: Add Urine Culture? No; Amorphous Sediment Urine 1+ /hpf; Mucus Urine 1+ /hpf
[2024-05-03] MEDS: magnesium hydroxide 30 mL UDC PO (20:50)
[2024-05-03] MEDS: mineral oil 30 mL UDC PO (20:50)
[2024-05-03] MEDS: lactulose oral liq 20 gm/30 mL UDC 30 GM PO (20:50)
== END 2024-05-03 20:57 | disposition home or self-care (01) ==
PROVIDERS: Emergency Provider Physician Assistant; PCP Family Medicine
DX: K59.00 Constipation, unspecified (principal); K56.7 Ileus, unspecified; Z87.891 Personal history of nicotine dependence; Z86.73 Personal history of transient ischemic attack (TIA), and cerebral infarction without residual deficits; I25.10 Atherosclerotic heart disease of native coronary artery without angina pectoris; I11.0 Hypertensive heart disease with heart failure; I50.30 Unspecified diastolic (congestive) heart failure
CPT/HCPCS: 74019; 80053; 81001; 83690; 85025; 96374; 96376; 99284; J1171

== ENCOUNTER → 2024-05-25 10:54 | Outpatient (BNVA) | payer MEDICARE, SELFPAY | PROVIDERS: PCP Family Medicine; Visit Provider Student in an Organized Health Care Education/Training Program | DX: Z12.11 Encounter for screening for malignant neoplasm of colon (principal); R03.0 Elevated blood-pressure reading, without diagnosis of hypertension; R12 Heartburn | CPT/HCPCS: 99204 ==

== ENCOUNTER 2024-06-02 06:53 | Day surgery (SDC) | payer MEDICARE, SELFPAY ==
[2024-06-02] MEDS: sodium chloride 0.9% 500 ML 15 ML IV (07:19)
[2024-06-02 07:20] VITALS: BP 180/90; PULSE 102; RESP 16; TEMP 36.1; O2SAT 97
--- NOTE | 2024-06-02 07:25 | ANES.PREANE2 ---
Pre-Anesthetic Assessment Height/Weight: Height 1.78 m Weight 102.058 kg Temp Pulse Resp BP Pulse Ox O2 Del Method 97.0 F L 102 H 16 180/90 97 Room Air 06/02/24 07:20 06/02/24 07:20 06/02/24 07:20 06/02/24 07:20 06/02/24 07:20 06/02/24 07:20 Preop Diagnosis: Screening, GERD Operation Date: 06/02/24 08:00 Proposed Procedures p EGD [id number] G0105 Z12.11 R12(Not Applicable) - Ralph Alvarez MD s Colonoscopy(Not Applicable) - Ralph Alvarez MD Familial anesthetic complications: none Was Beta Foreign taken within 24 hours: N/A Last intake: Intake Last Liquid Date 06/01/24 Last Liquid Time 23:00 Last Solid Date 05/31/24 Last Solid Time 14:00 Social Tobacco and No alcohol Exam alert, oriented x 3, clear to auscultation bilaterally and regular rate & rhythm Airway Cervical ROM: Other (5 previous neck surgeries rates pain 7/10 baseline) Mallampati: Class IV Dentition: chipped (left front tooth chipped on back side) and full Comments: Comments: narrow pallet Pulmonary Sleep Apnea and Shortness of Breath (prn albuterol hasn't used in a year denies COPD and Asthma) CV/HEM Coronary Artery Disease and Hypertension denies CAD or ID states he had a Angiogram which did not indicate CAD. None reported Hepatic enlarged liver previous spot on outside of liver GI Gastroesophageal Reflux Disease Metabolic Diabetes Mellitus and Hyperlipidemia Musc/skel Weakness (walker and cane use) Neuropsych Transient Ischemic Attack Anesthetic Plan ASA status: 3 Anesthesia: MAC Medications/Allergies Home Medications ?Medication ?Instructions ?Recorded ?Confirmed ?Last Taken ?Type CPAP supplies #1 ea 11/29/20 05/28/24 06/01/24 Rx blood sugar diagnostic (OneTouch #100 ea 01/26/21 05/28/24 06/01/24 Rx Ultra Test strips) blood-glucose meter (OneTouch #1 ea 01/26/21 05/28/24 06/01/24 Rx Ultra2 Meter) albuterol sulfate 90 mcg/actuation 2 inh inhalation Q4H PRN shortness 03/24/21 05/28/24 06/01/24 Rx aerosol inhaler of breath or wheezing #8.5 grams back brace (Back Support S/M) #1 ea 05/15/21 05/28/24 06/01/24 Rx back brace #1 ea 05/30/21 05/28/24 06/01/24 Rx melatonin 5 mg tablet 10 mg PO BEDTIME sleep 10/20/21 05/28/24 06/01/24 History naloxone 4 mg/actuation nasal 4 mg intranasal Q2M PRN opioid 01/30/22 05/28/24 06/01/24 Rx spray (Narcan) overdose #2 ea furosemide 40 mg tablet 40 mg PO BID PRN weight gain #180 04/03/22 05/28/24 06/01/24 Rx tabs AUTO - TITRATING CPAP 6-10CM #1 ea 01/17/23 05/28/24 06/01/24 Rx nitroglycerin 0.4 mg sublingual 0.4 mg sublingual Q5M PRN Chest 07/14/23 05/28/24 06/01/24 History tablet (Nitrostat) Pain naproxen 500 mg tablet (Naprosyn) 500 mg PO BID PRN pain #20 tabs 08/29/23 05/28/24 06/01/24 Rx morphine 15 mg immediate release 15 mg PO BID PRN pain (scale score 09/10/23 05/28/24 06/01/24 Rx tablet 7-10) 30 days #60 tabs rollaid walker with chair #1 ea 09/11/23 05/28/24 06/01/24 Rx tamsulosin 0.4 mg capsule 0.4 mg PO DAILY #30 caps 10/04/23 05/28/24 06/01/24 Rx clonidine HCl 0.1 mg tablet 0.1 mg PO DAILY PRN agitation #30 10/08/23 05/28/24 06/01/24 Rx tabs duloxetine 30 mg capsule,delayed 30 mg PO DAILY nerve medication 11/14/23 05/28/24 06/01/24 Rx release (Cymbalta) #90 caps gabapentin 300 mg capsule 600 mg (2 x 300 mg) PO BID #180 11/14/23 05/28/24 06/01/24 Rx caps morphine 15 mg tablet,extended 15 mg PO BID 01/27/24 05/28/24 06/01/24 History release ondansetron 4 mg disintegrating 4 mg PO Q8H PRN nausea and 01/31/24 05/28/24 06/01/24 Rx tablet vomiting #10 tabs naloxegol 25 mg tablet (Movantik) 25 mg PO QAM 03/13/24 05/28/24 06/01/24 History lactulose 10 gram/15 mL oral 15 ml PO TID PRN constipation #473 04/02/24 05/28/24 06/01/24 Rx solution mL tizanidine 4 mg tablet 8 mg (2 x 4 mg) PO TID muscle 05/25/24 05/28/24 06/01/24 Rx spasticity 30 days #180 tabs losartan 50 mg tablet 50 mg PO DAILY 05/27/24 05/28/24 06/01/24 History pantoprazole 40 mg tablet,delayed 40 mg PO DAILY 05/27/24 05/28/24 06/01/24 History release polyethylene glycol 3350 17 17 g PO DAILY 05/27/24 05/28/24 06/01/24 History gram/dose oral powder (Miralax) quetiapine 50 mg tablet (Seroquel) 50 - 100 mg PO BEDTIME 06/01/24 06/01/24 06/01/24 History Allergies Allergy/AdvReac Type Severity Reaction Status Date / Time pregabalin (From Lyrica) Allergy Intermediate ADR-Halluci Verified 05/28/24 15:13 nating pineapple Allergy Unknown ALGY-Anaphy Verified 05/28/24 15:13 laxis oxycodone (From OxyContin) Allergy ADR-Gastrointestinal Verified 05/28/24 15:13 Upset levothyroxine sodium (From AdvReac Severe ADR-Halluci Verified 05/28/24 15:13 Euthyrox) nating hydrochlorothiazide AdvReac ADR-Agitate Verified 05/28/24 15:13 d oxycotin Allergy Severe ADR-Confusi Uncoded 05/28/24 15:13 on Current Medications Generic Name Dose Route Start Last Admin Trade Name Freq PRN Reason Stop Dose Admin Sodium Chloride 500 mls @ 15 mls/hr 06/02/24 07:04 06/02/24 07:19 Sodium Chloride 0.9% IV 06/03/24 07:03 15 mls/hr .Q24H PRN Administration COLONOSCOPY FLUIDS PFSH Anesthesia Medical History Duodenal erosion Acute upper gastrointestinal bleeding Liver mass Leukocytosis Hyponatremia Chronic prescription opiate use Intractable nausea and vomiting Near syncope Nicotine dependence, chewing tobacco, uncomplicated Atherosclerosis of coronary artery Chest pain Psychiatric care Abnormal stress test COVID-19 History of colon polyps History of CVA (cerebrovascular accident) 2005 --left-sided weakness Nephrolithiasis Acute bronchitis Congestive heart failure Chronic low back pain Dizziness Major depressive disorder, recurrent, moderate Chronic neck pain History of ID (myocardial infarction) History of TIA (transient ischemic attack) Left ventricular hypertrophy Hypertriglyceridemia MRSA (methicillin resistant Staphylococcus aureus) Bright red rectal bleeding Internal hemorrhoids Diastolic heart failure Hypothyroidism Essential (primary) hypertension Surgical History H/O esophagogastroduodenoscopy (05/10/20) History of colonoscopy 12/2014 --small tubular adenoma, limited diverticulosis 02/2018 --small internal hemorrhoids S/P appendectomy S/P cholecystectomy S/P hernia repair ventral with mesh x 2 H/O neck surgery x 5 ( some of those were for a postop MRSA infection ) Family History Mother Congestive heart failure (CHF) Thyroid disease Sister Thyroid disease Father Atrial fibrillation Brother Heart disease HX STENTS Other CAD (coronary artery disease) Diabetes Social History (Updated 05/25/24 @ 11:16 by Francisca Mei, CT) Smoking and tobacco/nicotine status: former use of tobacco/nicotine Second hand smoke exposure: Yes Alcohol intake: never Substance/Drug Use: never Lives independently: Yes Household members: spouse Marital status: Current occupational status: disabled Do you think of yourself as: Straight/Heterosexual Current gender identity: Male Data Anesthesia Cardiac Studies: Sestamibi Stress Test (Cardiology) 10/13/21
--- NOTE | 2024-06-02 07:39 | W.PM.OPSFHP ---
Same Day Surgery H&P Indication for Procedure/HPI DATE OF PROCEDURE: June 02, 2024 CHIEF COMPLAINT/INDICATIONFOR SURGICAL PROCEDURE: heartburn and screening colonoscopy PREOP DIAGNOSIS: Screening, GERD PLANNED PROCEDURE: Operation Date: 06/02/24 08:00 Proposed Procedures p EGD [id number] G0105 Z12.11 R12(Not Applicable) - Ralph Alvarez MD s Colonoscopy(Not Applicable) - Ralph Alvarez MD Medications/Allergies* Home Medications ?Medication ?Instructions ?Recorded ?Confirmed ?Type melatonin 5 mg tablet 10 mg PO BEDTIME sleep 10/20/21 05/28/24 History nitroglycerin 0.4 mg sublingual 0.4 mg sublingual Q5M PRN Chest 07/14/23 05/28/24 History tablet (Nitrostat) Pain morphine 15 mg tablet,extended 15 mg PO BID 01/27/24 05/28/24 History release naloxegol 25 mg tablet (Movantik) 25 mg PO QAM 03/13/24 05/28/24 History losartan 50 mg tablet 50 mg PO DAILY 05/27/24 05/28/24 History pantoprazole 40 mg tablet,delayed 40 mg PO DAILY 05/27/24 05/28/24 History release polyethylene glycol 3350 17 17 g PO DAILY 05/27/24 05/28/24 History gram/dose oral powder (Miralax) quetiapine 50 mg tablet (Seroquel) 50 - 100 mg PO BEDTIME 06/01/24 06/01/24 History Allergies/Adverse Reactions Allergy/AdvReac Type Severity Reaction Status Date / Time pregabalin (From Lyrica) Allergy Intermediate ADR-Halluci Verified 05/28/24 15:13 nating pineapple Allergy Unknown ALGY-Anaphy Verified 05/28/24 15:13 laxis oxycodone (From OxyContin) Allergy ADR-Gastrointestinal Verified 05/28/24 15:13 Upset levothyroxine sodium (From AdvReac Severe ADR-Halluci Verified 05/28/24 15:13 Euthyrox) nating hydrochlorothiazide AdvReac ADR-Agitate Verified 05/28/24 15:13 d oxycotin Allergy Severe ADR-Confusi Uncoded 05/28/24 15:13 on Current Medications: Generic Name Dose Route Start Last Admin Trade Name Freq PRN Reason Stop Dose Admin Sodium Chloride 500 mls @ 15 mls/hr 06/02/24 07:04 06/02/24 07:19 Sodium Chloride 0.9% IV 06/03/24 07:03 15 mls/hr .Q24H PRN Administration COLONOSCOPY FLUIDS Pertinent History/Comorbid Conditions* Medical History (Updated 05/25/24 @ 11:35 by Ralph Alvarez MD) Duodenal erosion Acute upper gastrointestinal bleeding Liver mass Leukocytosis Hyponatremia Chronic prescription opiate use Intractable nausea and vomiting Near syncope Nicotine dependence, chewing tobacco, uncomplicated Atherosclerosis of coronary artery Chest pain Psychiatric care Abnormal stress test COVID-19 History of colon polyps History of CVA (cerebrovascular accident) 2005 --left-sided weakness Nephrolithiasis Acute bronchitis Congestive heart failure Chronic low back pain Dizziness Major depressive disorder, recurrent, moderate Chronic neck pain History of [place] (myocardial infarction) History of TIA (transient ischemic attack) Left ventricular hypertrophy Hypertriglyceridemia MRSA (methicillin resistant Staphylococcus aureus) Bright red rectal bleeding Internal hemorrhoids Diastolic heart failure Hypothyroidism Essential (primary) hypertension Surgical History (Updated 05/10/20 @ 11:27 by Jean Dumont MD) H/O esophagogastroduodenoscopy (05/10/20) History of colonoscopy 12/2014 --small tubular adenoma, limited diverticulosis 02/2018 --small internal hemorrhoids S/P appendectomy S/P cholecystectomy S/P hernia repair ventral with mesh x 2 H/O neck surgery x 5 ( some of those were for a postop MRSA infection ) Family History (Updated 05/01/19 @ 09:14 by Lauren Landon RN) Diabetes CAD (coronary artery disease) Congestive heart failure (CHF) Mother Atrial fibrillation Father Heart disease Brother HX STENTS Thyroid disease Mother Sister Social History Smoking and tobacco/nicotine status: former use of tobacco/nicotine Second hand smoke exposure: Yes Alcohol intake: never Substance/Drug Use: never Lives independently: Yes Household members: spouse Marital status: Current occupational status: disabled Do you think of yourself as: Straight/Heterosexual Current gender identity: Male Pertinent Exam Findings alert, oriented x 3, clear to auscultation bilaterally, regular rate & rhythm and procedure specific exam findings abdomen soft, nt, nd Recommendations Surgery/Procedure today Coding Level of Care Code Acute Code for Chg Fwd
[2024-06-02 08:38] VITALS: BP 103/62; PULSE 69; RESP 16; TEMP 36.4; O2SAT 97
[2024-06-02 09:00] VITALS: BP 136/92; PULSE 73; RESP 18; O2SAT 96
--- NOTE | 2024-06-02 09:21 | ANE.PACU2 ---
Inpatient post-anesthesia follow up: Airway intact: Yes Vital signs: Temperature 97.5 F Pulse Rate 73 Respiratory Rate 18 Blood Pressure 136/92 Pulse Oximetry 96 Oxygen Delivery Me thod Room Air Oxygen Flow Rate Fraction of Inspir ed Oxygen Hydration adequate: Yes Nausea and vomiting: No Pain level: 1 Mental status: Baseline
== END 2024-06-02 09:21 | disposition home or self-care (01) ==
PROVIDERS: PCP Family Medicine; Visit Provider Student in an Organized Health Care Education/Training Program
PROC: 0DJ08ZZ Inspection of Upper Intestinal Tract, Via Natural or Artificial Opening Endoscopic (ICD-10-PCS; principal; 2024-06-02 08:00)
PROC: 0DJD8ZZ Inspection of Lower Intestinal Tract, Via Natural or Artificial Opening Endoscopic (ICD-10-PCS; CPT 45378; 2024-06-02 08:00)
DX: Z12.11 Encounter for screening for malignant neoplasm of colon (principal); K21.9 Gastro-esophageal reflux disease without esophagitis; E78.5 Hyperlipidemia, unspecified; E11.9 Type 2 diabetes mellitus without complications; G47.30 Sleep apnea, unspecified; I69.954 Hemiplegia and hemiparesis following unspecified cerebrovascular disease affecting left non-dominant side; K08.89 Other specified disorders of teeth and supporting structures; Z79.899 Other long term (current) drug therapy; Z88.8 Allergy status to other drugs, medicaments and biological substances; Z88.5 Allergy status to narcotic agent; I11.0 Hypertensive heart disease with heart failure; E03.9 Hypothyroidism, unspecified; I50.32 Chronic diastolic (congestive) heart failure; Z86.14 Personal history of Methicillin resistant Staphylococcus aureus infection; Z90.49 Acquired absence of other specified parts of digestive tract; Z87.891 Personal history of nicotine dependence; K29.50 Unspecified chronic gastritis without bleeding; Z86.0101 Personal history of adenomatous and serrated colon polyps
CPT/HCPCS: 43239; 88305; G0121; J2704; J3010; J3490; J7040; J9999

== ENCOUNTER 2024-06-03 13:41 | Emergency (ER) | payer MEDICARE, SELFPAY ==
[2024-06-03 14:02] VITALS: BP 162/90; PULSE 80; RESP 18; TEMP 36.9; O2SAT 98
--- NOTE | 2024-06-03 14:36 | ECG_ITS ---
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 Measurements Intervals [place] Rate: 63 P: 60 LA: 139 QRS: 56 QRSD: 98 T: 49 QT: 392 QTc: 402 Interpretive Statements SINUS RHYTHM Compared to ECG 07/15/2023 01:06:23 No significant changes Electronically Signed On 06-03-2024 19:26:13 CDT by Tony Reyes M.D. [email or web address]
--- NOTE | 2024-06-03 14:43 | W.ED.RECABL ---
HPI - Recheck/Abnormal Lab/Rx General: Chief Complaint: Recheck/Abnormal Lab/Rx Stated Complaint: high BP Time Seen by Provider: 06/03/24 14:25 History of Present Illness: 58-year-old male who presents emergency room with elevated blood pressure. Patient states his blood pressure is elevated because he can no longer get extended relief morphine which is the only thing that really controls his pain. He tells me he has been given short acting immediate release morphine to take for 15 mg tablets a day but it does not work the same. He is on losartan 50 mg for his blood pressure and takes clonidine as needed if it is greater than 160. He states blood pressure at home was 160 even as high as 190 today he took a clonidine and called his psychiatrist who had started him on the clonidine for his blood pressure and they advised him to go to the emergency room he denies any chest pain. He does relate that in the past they have noted that his blood pressure is significantly higher in the right arm compared to the left. Related Data Home Medications ?Medication ?Instructions ?Recorded ?Confirmed nitroglycerin 0.4 mg sublingual 0.4 mg sublingual Q5M PRN Chest 07/14/23 06/03/24 tablet (Nitrostat) Pain losartan 50 mg tablet 50 mg PO DAILY 05/27/24 06/03/24 pantoprazole 40 mg tablet,delayed 40 mg PO DAILY 05/27/24 06/03/24 release polyethylene glycol 3350 17 17 g PO DAILY PRN Constipation 05/27/24 06/03/24 gram/dose oral powder (Miralax) quetiapine 50 mg tablet (Seroquel) 50 - 100 mg PO BEDTIME 06/01/24 06/03/24 melatonin 10 mg tablet 10 mg PO BEDTIME 06/03/24 06/03/24 morphine 15 mg immediate release 15 mg PO QID PRN pain (scale score 06/03/24 06/03/24 tablet 7-10) Previous Rx's ?Medication ?Instructions ?Recorded CPAP supplies #1 ea 11/29/20 blood sugar diagnostic (OneTouch #100 ea 01/26/21 Ultra Test strips) blood-glucose meter (OneTouch #1 ea 01/26/21 Ultra2 Meter) back brace (Back Support S/M) #1 ea 05/15/21 back brace #1 ea 05/30/21 naloxone 4 mg/actuation nasal 4 mg intranasal Q2M PRN opioid 01/30/22 spray (Narcan) overdose #2 ea AUTO - TITRATING CPAP 6-10CM #1 ea 01/17/23 rollaid walker with chair #1 ea 09/11/23 tamsulosin 0.4 mg capsule 0.4 mg PO DAILY #30 caps 10/04/23 clonidine HCl 0.1 mg tablet 0.1 mg PO DAILY PRN agitation #30 10/08/23 tabs duloxetine 30 mg capsule,delayed 30 mg PO DAILY nerve medication 11/14/23 release (Cymbalta) #90 caps gabapentin 300 mg capsule 600 mg (2 x 300 mg) PO BID #180 11/14/23 caps ondansetron 4 mg disintegrating 4 mg PO Q8H PRN nausea and 01/31/24 tablet vomiting #10 tabs lactulose 10 gram/15 mL oral 15 ml PO TID PRN constipation #473 04/02/24 solution mL tizanidine 4 mg tablet 8 mg (2 x 4 mg) PO TID muscle 05/25/24 spasticity 30 days #180 tabs amlodipine 2.5 mg tablet 2.5 mg PO DAILY #30 tabs 06/03/24 Allergies Allergy/AdvReac Type Severity Reaction Status Date / Time pregabalin (From Lyrica) Allergy Intermediate ADR-Halluci Verified 05/28/24 15:13 nating pineapple Allergy Unknown ALGY-Anaphy Verified 05/28/24 15:13 laxis oxycodone (From OxyContin) Allergy ADR-Gastrointestinal Verified 05/28/24 15:13 Upset levothyroxine sodium (From AdvReac Severe ADR-Halluci Verified 05/28/24 15:13 Euthyrox) nating hydrochlorothiazide AdvReac ADR-Agitate Verified 05/28/24 15:13 d oxycotin Allergy Severe ADR-Confusi Uncoded 05/28/24 15:13 on Review of Systems Const: Denies: fever(s) or chills Card: Denies: chest pain Resp: Denies: dyspnea GI: Denies: abdominal pain : Denies: dysuria, urinary frequency or urinary urgency Musc: Denies: neck pain or back pain Skin/Breast: Denies: rash PFSH ED PFSH: Medical History Duodenal erosion Acute upper gastrointestinal bleeding Liver mass Leukocytosis Hyponatremia Chronic prescription opiate use Intractable nausea and vomiting Near syncope Nicotine dependence, chewing tobacco, uncomplicated Atherosclerosis of coronary artery Chest pain Psychiatric care Abnormal stress test COVID-19 History of colon polyps History of CVA (cerebrovascular accident) 2005 --left-sided weakness Nephrolithiasis Acute bronchitis Congestive heart failure Chronic low back pain Dizziness Major depressive disorder, recurrent, moderate Chronic neck pain History of AK (myocardial infarction) History of TIA (transient ischemic attack) Left ventricular hypertrophy Hypertriglyceridemia MRSA (methicillin resistant Staphylococcus aureus) Bright red rectal bleeding Internal hemorrhoids Diastolic heart failure Hypothyroidism Essential (primary) hypertension Surgical History H/O esophagogastroduodenoscopy (05/10/20) History of colonoscopy 12/2014 --small tubular adenoma, limited diverticulosis 02/2018 --small internal hemorrhoids S/P appendectomy S/P cholecystectomy S/P hernia repair ventral with mesh x 2 H/O neck surgery x 5 ( some of those were for a postop MRSA infection ) Family History Mother Congestive heart failure (CHF) Thyroid disease Sister Thyroid disease Father Atrial fibrillation Brother Heart disease HX STENTS Other CAD (coronary artery disease) Diabetes Social History Smoking and tobacco/nicotine status: former use of tobacco/nicotine Second hand smoke exposure: Yes Alcohol intake: never Substance/Drug Use: never Lives independently: Yes Household members: spouse Marital status: Current occupational status: disabled Do you think of yourself as: Straight/Heterosexual Current gender identity: Male Physical Exam Const: COMMON NORMALS: no acute distress GENERAL APPEARANCE: cooperative and comfortable ORIENTATION/CONSCIOUSNESS: Yes awake, Yes oriented to person, Yes oriented to place and Yes oriented to time HENMT: COMMON NORMALS: normocephalic, atraumatic and hearing grossly normal bilaterally HEAD & SCALP: normocephalic and atraumatic Resp: COMMON NORMALS: normal respiratory effort, No retractions, No use of accessory muscles and clear to auscultation bilaterally AUSCULTATION: clear to auscultation bilaterally Cardio: COMMON NORMALS: regular rate, regular rhythm and No murmurs present (Cardio) RATE: regular rate RHYTHM: regular rhythm GI: COMMON NORMALS: Soft to palpation and No hepatosplenomegaly present AUSCULTATION: Yes normoactive bowel sounds PALPATION: Yes Soft to palpation, No Tenderness to palpation present (GI), No Guarding due to palpation present (GI) and Yes No hepatosplenomegaly present Extremity: COMMON NORMALS: normal to inspection, capillary refill normal, no clubbing, cyanosis or edema, no calf tenderness and no pedal edema Neuro: SENSORIUM/ORIENTATION: Yes oriented to person, Yes oriented to place and Yes oriented to time Skin: COMMON NORMALS: no rashes or lesions noted GENERAL SKIN EXAM: no rashes or lesions noted Course Vital Signs: Vital signs: Vital Signs Temperature 98.5 F 06/03/24 14:02 Pulse Rate 63 06/03/24 18:23 Respiratory Rate 16 06/03/24 18:23 Blood Pressure 137/79 06/03/24 18:23 Pulse Oximetry 99 06/03/24 18:23 Oxygen Delivery Me thod Room Air 06/03/24 17:39 MDM - Recheck/Abnormal Lab/Rx Medical Decision Making Blood pressure improved laboratory studies unremarkable. He does have a little bit of relative hyponatremia but I do not believe he is symptomatic of it at this point. His sodium was 131. He has had similar readings in the past consistently. Discharge patient home add amlodipine 2.5 mg daily to his losartan and follow-up with his primary care doctor within the week to reevaluate blood pressure. As to his pain control continue to follow-up with physicians who have been prescribing his narcotics in the past. Medical Records I reviewed the patient's medical records. Lab Data I reviewed the patient's lab results. 06/03/24 14:44 06/03/24 14:44 Radiology Impressions Chest X-Ray 06/03/24 14:51 IMPRESSION: 1. Negative chest. Duplex Scan Upper Extremity Artery 06/03/24 14:51 IMPRESSION: Negative for stenosis or occlusion Head CT 06/03/24 16:55 IMPRESSION: Negative brain CT examination cardio Laboratory Results WBC 9.72 10^3/uL (3.29-11.43) 06/03/24 14:44 RBC 5.00 10^6/uL (3.85-5.65) 06/03/24 14:44 Hgb 14.90 g/dL (11.27-16.99) 06/03/24 14:44 Hct 44.7 % (37-53) 06/03/24 14:44 MCV 89.4 fl (82-101) 06/03/24 14:44 MCH 29.8 pg (27-33) 06/03/24 14:44 MCHC 33.3 g/dL (30-55) 06/03/24 14:44 RDW 13.0 % (12.1-15.1) 06/03/24 14:44 Plt Count 317 10^3/cmm (157-399) 06/03/24 14:44 MPV 9.9 fL (7.4-10.4) 06/03/24 14:44 Neut % (Auto) 64.2 % 06/03/24 14:44 Lymph % (Auto) 23.4 % 06/03/24 14:44 [place] % (Auto) 9.6 % 06/03/24 14:44 Eos % (Auto) 2.2 % 06/03/24 14:44 Baso % (Auto) 0.5 % 06/03/24 14:44 Neut # (Auto) 6.25 10^3/uL (1.8-7.7) 06/03/24 14:44 Lymph # (Auto) 2.3 10^3/uL (0.8-4.8) 06/03/24 14:44 [place] # (Auto) 0.9 10^3/uL (0.2-0.9) 06/03/24 14:44 Eos # (Auto) 0.2 10^3/uL (0.0-0.8) 06/03/24 14:44 Baso # (Auto) 0.1 10^3/uL (0.0-0.1) 06/03/24 14:44 Nucleated RBC % (auto) 0 % 06/03/24 14:44 Nucleated RBCs # 0.0 /100WBC 06/03/24 14:44 Sodium 131 mmol/L (136-145) L 06/03/24 14:44 Potassium 3.8 mmol/L (3.5-5.1) 06/03/24 14:44 Chloride 94 mmol/L (98-107) L 06/03/24 14:44 Carbon Dioxide 27 mmol/L (22-29) 06/03/24 14:44 Anion Gap 13.8 (5-19) 06/03/24 14:44 BUN 9 mg/dL (6-20) 06/03/24 14:44 Creatinine 0.9 mg/dL (0.7-1.2) 06/03/24 14:44 GFR Calculation 86.7 mL/min (90-130) L 06/03/24 14:44 Glucose 106 mg/dL (65-115) 06/03/24 14:44 Calculated Osmolality 271 mOsm/kg (285-295) L 06/03/24 14:44 Calcium 8.9 mg/dL (8.5-10.5) 06/03/24 14:44 Total Bilirubin 0.3 mg/dL (0.15-1.2) 06/03/24 14:44 AST 15 U/L (0-40) 06/03/24 14:44 ALT 14 U/L (0-41) 06/03/24 14:44 Alkaline Phosphatase 72 U/L (40-130) 06/03/24 14:44 Total Protein 7.4 g/dL (6.6-8.7) 06/03/24 14:44 Albumin 4.4 g/dL (3.5-5.2) 06/03/24 14:44 Globulin 3.0 g/dL (1.3-4.6) 06/03/24 14:44 All radiology interpretation(s) finalized by discharge Discharge Plan Discharge Patient Disposition: Home Clinical Impression: Essential (primary) hypertension, Chronic low back pain Condition: Stable Prescriptions: New amlodipine 2.5 mg tablet 2.5 mg PO DAILY Qty: 30 0RF No Action (DME) CPAP supplies See Rx Instructions .Route .MEDSUPPLY Qty: 1 0RF Rx Instructions: Mask, tubing, filters. (DME) blood-glucose meter [OneTouch Ultra2 Meter] [facility] See Rx Instructions .Route Qty: 1 0RF Rx Instructions: to use to check blood sugar once daily (DME) OneTouch Ultra Test Strip See Rx Instructions .Route Qty: 100 3RF Rx Instructions: to check blood sugar once daily in onetouch meter 90day supply duloxetine [Cymbalta] 30 mg capsule,delayed release(DR/EC) 30 mg PO DAILY Qty: 90 1RF gabapentin 300 mg capsule 600 mg PO BID Qty: 180 1RF naloxone [Narcan] 4 mg/actuation spray,non-aerosol 4 mg intranasal Q2M PRN (Reason: opioid overdose) Qty: 2 3RF Rx Instructions: spray 1 dose into 1 nostril alternate nostrils w ea dose until help arrives clonidine HCl 0.1 mg tablet 0.1 mg PO DAILY PRN (Reason: agitation) Qty: 30 3RF Rx Instructions: May take one tab daily as needed for agitation ondansetron 4 mg tablet,disintegrating 4 mg PO Q8H PRN (Reason: nausea and vomiting) Qty: 10 0RF (DME) back brace [Back Support S/M] Misc See Rx Instructions .Route Qty: 1 0RF Rx Instructions: As directed (DME) back brace Misc See Rx Instructions .ROUTE .MEDSUPPLY Qty: 1 0RF Rx Instructions: As directed (DME) AUTO - TITRATING CPAP 6-10CM See Rx Instructions .Route .MEDSUPPLY Qty: 1 0RF Rx Instructions: As directed (DME) rollaid walker with chair See Rx Instructions .Route .MEDSUPPLY Qty: 1 0RF Rx Instructions: As directed lactulose 10 gram/15 mL solution 15 ml PO TID PRN (Reason: constipation) Qty: 473 0RF tizanidine 4 mg tablet 8 mg PO TID 30 Days Qty: 180 0RF tamsulosin 0.4 mg Capsule 0.4 mg PO DAILY Qty: 30 0RF melatonin 10 mg Tablet 10 mg PO BEDTIME morphine 15 mg tablet 15 mg PO QID PRN (Reason: pain (scale score 7-10)) nitroglycerin [Nitrostat] 0.4 mg Tablet, Sublingual 0.4 mg SUBLINGUAL Q5M PRN (Reason: Chest Pain) Rx Instructions: do not exceed 3 doses per episode losartan 50 mg tablet 50 mg PO DAILY pantoprazole 40 mg tablet,delayed release (DR/EC) 40 mg PO DAILY polyethylene glycol 3350 [Miralax] 17 gram/dose powder 17 g PO DAILY PRN (Reason: Constipation) Rx Instructions: 1-2 scoops of miralax daily quetiapine [Seroquel] 50 mg tablet 50 - 100 mg PO BEDTIME Discharge Orders: Discharge ED (Routine); Ordered 06/03/24 Ordered By: Jori Wall Referrals: Alec Gabriel MD [Primary Care Provider] - Discharge Diet: Usual diet Discharge Activity: Resume usual activity Patient Instructions: Opioid Safety, Pain Management Activity Restrictions/Additional Instructions: Thank you for choosing [facility] for your healthcare needs today. It is very important that you follow up as instructed or that you return to the Emergency Department should you have concerns or if your condition changes or worsens in any way. You were seen in the emergency room with elevated blood pressure. Recommend that you add amlodipine 2.5 mg once daily continue the losartan. Follow-up with your primary care doctor within the week. You should be aware that one of the problems with clonidine is rebound hypertension meaning it will lower your blood pressure for a period of time but as the medicine wears off the blood pressure will often rebound to higher levels than it was previously. Your doctor can work with you to adjust medications to avoid the need for using clonidine. Print Language: Kazakh Coding Level of Care Code ED Pattern Weaver for Emy Ford
--- NOTE | 2024-06-03 14:51 | USR_ITS ---
PROCEDURE INFORMATION: Exam: US Duplex Upper Extremity Arteries Exam date and time: 06/03/2024 4:06 PM Age: 58 years old Clinical indication: Other: Discrepant blood pressures; Additional info: Discrepant BP l-r arm TECHNIQUE: Imaging protocol: Real-time ultrasound scan of the arteries of the bilateral upper extremities with 2-D perez scale, color Doppler flow and spectral waveform analysis. Complete exam. COMPARISON: CT angio headneck* [id number] 08/28/2021 10:14 PM FINDINGS: Right subclavian artery: No occlusion or significant stenosis. Normal waveform. Right axillary artery: No occlusion or significant stenosis. Normal waveform. Right brachial artery: No occlusion or significant stenosis. Normal waveform. Right radial artery: No occlusion or significant stenosis. Normal waveform. Right ulnar artery: No occlusion or significant stenosis. Normal waveform. Left subclavian artery: No occlusion or significant stenosis. Normal waveform. Left axillary artery: No occlusion or significant stenosis. Normal waveform. Left brachial artery: No occlusion or significant stenosis. Normal waveform. Left radial artery: No occlusion or significant stenosis. Normal waveform. Left ulnar artery: No occlusion or significant stenosis. Normal waveform. US/[place] [id number] IMPRESSION: Negative for stenosis or occlusion
--- NOTE | 2024-06-03 14:51 | XR_ITS ---
WS: [id number] Exam: XR chest 1V portable [id number] Date/Time of Exam: 06/03/2024 3:05 PM Reason For Exam: dyspnea/cough Comparison 07/12/2023. The lungs are clear and fully expanded. Normal cardiomediastinal silhouette. Regional bony structures appear normal. Mild spondylosis of the thoracic spine. XR/XR chest 1V portable [id number] IMPRESSION: 1. Negative chest.
[2024-06-03 14:52] VITALS: BP 143/95; PULSE 65; RESP 18; O2SAT 98
[2024-06-03 14:54] LABS: Basophils # 0.1 10^3/uL (0.0-0.1); Basophils % 0.5 %; Eosinophils # 0.2 10^3/uL (0.0-0.8); Eosinophils % 2.2 %; Hematocrit 44.7 % (37-53); Lymphocytes # 2.3 10^3/uL (0.8-4.8); Lymphocytes % 23.4 %; Mean Corpuscular HGB Conc 33.3 g/dL (30-55); Mean Corpuscular Hemoglobin 29.8 pg (27-33); Mean Corpuscular Volume 89.4 fl (82-101); Mean Platelet Volume 9.9 fL (7.4-10.4); Monocytes # 0.9 10^3/uL (0.2-0.9); Monocytes % 9.6 %; Neutrophils # 6.25 10^3/uL (1.8-7.7); Neutrophils % 64.2 %; Nucleated Red Blood Cells % 0 %; Platelet Count 317 10^3/cmm (157-399); White Blood Count 9.72 10^3/uL (3.29-11.43)
[2024-06-03] MEDS: amlodipine 10 mg Tablet PO (15:06)
[2024-06-03 15:08] LABS: Alanine Aminotransferase 14 U/L (0-41); Albumin Level 4.4 g/dL (3.5-5.2); Alkaline Phosphatase 72 U/L (40-130); Anion Gap 13.8 (5-19); Aspartate Amino Transferase 15 U/L (0-40); Blood Urea Nitrogen 9 mg/dL (6-20); Calcium 8.9 mg/dL (8.5-10.5); Carbon Dioxide 27 mmol/L (22-29); Chloride 94 mmol/L (98-107); Glomerular Filtration Rate 86.7 mL/min (90-130); Glucose 106 mg/dL (65-115); Osmolality Calculated 271 mOsm/kg (285-295); Potassium 3.8 mmol/L (3.5-5.1); Sodium 131 mmol/L (136-145); Total Bilirubin 0.3 mg/dL (0.15-1.2); Total Protein 7.4 g/dL (6.6-8.7)
[2024-06-03 16:34] VITALS: BP 158/96; PULSE 64; O2SAT 99
--- NOTE | 2024-06-03 16:55 | CTR_ITS ---
PROCEDURE INFORMATION: Exam: CT Head Without Contrast Exam date and time: 06/03/2024 5:03 PM Age: 58 years old Clinical indication: Pain; Headache not specified; Additional info: Headache elevated blood pressure no focal 0 neurologic defic TECHNIQUE: Imaging protocol: Computed tomography of the head without contrast. Radiation optimization: All CT scans at this facility use at least one of these dose optimization techniques: automated exposure control; mA and/or kV adjustment per patient size (includes targeted exams where dose is matched to clinical indication); or iterative reconstruction. COMPARISON: CT head wo con* [id number] 07/14/2023 8:13 PM RADIATION DOSE METRICS: Total DLP (mGy-cm): 1111.88 FINDINGS: Brain: Normal. No hemorrhage. Unremarkable white matter. No mass effect. Cerebral ventricles: No ventriculomegaly. Paranasal sinuses: Visualized sinuses are unremarkable. No fluid levels. Mastoid air cells: Visualized mastoid air cells are well aerated. Bones: Unremarkable. No acute fracture. Soft tissues: Unremarkable. Other findings: 0; [place] CT/CT head wo con* [id number] IMPRESSION: Negative brain CT examination cardio
[2024-06-03] MEDS: ketorolac 30 mg/mL INJ IVP (17:34)
[2024-06-03] MEDS: prochlorperazine 10 mg/2 mL Inj IVP (17:34)
[2024-06-03 17:39] VITALS: BP 141/71; PULSE 57; RESP 6; O2SAT 95
[2024-06-03 18:23] VITALS: BP 137/79; PULSE 63; RESP 16; O2SAT 99
== END 2024-06-03 18:24 | disposition home or self-care (01) ==
PROVIDERS: Emergency Provider Family Medicine; PCP Family Medicine
DX: I10 Essential (primary) hypertension (principal); M54.50 Low back pain, unspecified; Z87.891 Personal history of nicotine dependence; Z86.73 Personal history of transient ischemic attack (TIA), and cerebral infarction without residual deficits; I25.10 Atherosclerotic heart disease of native coronary artery without angina pectoris; I11.0 Hypertensive heart disease with heart failure; I50.30 Unspecified diastolic (congestive) heart failure
CPT/HCPCS: 36415; 70450; 71045; 80053; 85025; 93005; 93930; 96374; 96375; 99285; J0780; J1885; J9999

== ENCOUNTER → 2024-06-15 10:14 | Outpatient (BNVA) | payer MEDICARE, SELFPAY | PROVIDERS: PCP Family Medicine; Visit Provider Student in an Organized Health Care Education/Training Program | DX: Z09 Encounter for follow-up examination after completed treatment for conditions other than malignant neoplasm (principal) | CPT/HCPCS: 99213 ==

== ENCOUNTER → 2024-11-26 15:00 | Outpatient (BNVA) | payer MEDICARE, SELFPAY | PROVIDERS: PCP Family Medicine; Visit Provider Family Medicine | DX: E11.9 Type 2 diabetes mellitus without complications (principal) | CPT/HCPCS: 80053; 83036; 85025 ==

== ENCOUNTER 2024-12-23 16:57 | Inpatient (IN) | payer MEDICARE, SELFPAY ==
--- OUTSIDE RECORDS SUMMARY | 2023-12-18 12:00 | XMS_ITS ---
Author Organization [facility] Address [address] [place] [address] Care Team Providers Care Kettle Room Helper Name Role Phone Harvey ESCOBEDO, Alec Primary Care Provider Unavailab DOROTA Bella Unavailable [phone] REASON FOR VISIT 2 mo fr/pvr/kub Encounters Encounter Location Date Provider Diagnosis [facility] [address] [facility] [place] [address] 12/18/2023 DOROTA BECKER Plan Of Treatment No Information Progress Notes * Ben MCCORMICK HDOB:1965 (59 yo M)Acc No.[id number]:12/18/2023 Progress Notes Patient: Ben BAILEY Provider: WARREN Liu :1965 A ge:58 Y S ex:Male Date:12/18/2023 Address:[address] [place], [place] [id number] Pcp:Alec Gabriel MD Subjective: * Chief Complaints: * 1 . 2 mo fr/pvr/kub. * Medical History: Objective: * Vitals: Assessment: Plan: * Treatment: * Billing Information: * Visit Code: * Procedure Codes: * Electronic signature of DOROTA BECKER APRN on 12/23/2024 at 05:07 PM CDT Sign off status: Pending * Provider: Marilee Becker APRN-SUPERVISOR [employer]INTENANCE Date: Generated for Ann jaimes/Constantine/eTransmitting on: 05:07 PM CDT
[2024-12-23] VITALS (10 sets, daily range): BP systolic 143–196; BP diastolic 91–109; PULSE 70–83; RESP 16–18; TEMP 36.4–37.1; O2SAT 94–97; BMI 33.0; BMI 34.4
--- NOTE | 2024-12-23 17:05 | CTR_ITS ---
PROCEDURE INFORMATION: Exam: CT Abdomen And Pelvis With Contrast Exam date and time: 12/23/2024 6:35 PM Age: 59 years old Clinical indication: Abdominal pain; PT presents to ED via [facility] d/t abd pain, nausea PT from home; Additional info: Low abd pain TECHNIQUE: Imaging protocol: Computed tomography of the abdomen and pelvis with contrast. Radiation optimization: All CT scans at this facility use at least one of these dose optimization techniques: automated exposure control; mA and/or kV adjustment per patient size (includes targeted exams where dose is matched to clinical indication); or iterative reconstruction. Contrast material: [id number]; Contrast volume: 100 ml; Contrast route: INTRAVENOUS (IV); COMPARISON: CT abdomen pelvis w con* [id number] 09/30/2023 8:37 PM RADIATION DOSE METRICS: Total DLP (mGy-cm): 1056.05 FINDINGS: Liver: Normal. No mass. Gallbladder and biliary ducts: The gallbladder is absent. Pancreas: Normal. No ductal dilation. Spleen: Normal. No splenomegaly. Adrenal glands: Normal. No mass. Kidneys and ureters: Normal. No hydronephrosis. Stomach and bowel: Small bowel obstruction with multiple dilated fluid and air-filled loops of small bowel with a transition point in the mid abdomen posteriorly (series 6, image 44) with small bowel feces sign at this location. Appendix: The appendix is not visualized but there are no secondary signs of acute appendicitis. Intraperitoneal space: Unremarkable. No free air. No significant fluid collection. Vasculature: Unremarkable. No abdominal aortic aneurysm. Lymph nodes: Unremarkable. No enlarged lymph nodes. Urinary bladder: Unremarkable as visualized. Reproductive: Unremarkable as visualized. Bones/joints: Unremarkable. No acute fracture. Soft tissues: Unremarkable. CT/CT abdomen pelvis w con* [id number] IMPRESSION: Small bowel obstruction with multiple dilated fluid and air-filled loops of small bowel with a transition point in the mid abdomen posteriorly (series 6, image 44) with small bowel feces sign at this location. No mass identified at the transition point.
--- OUTSIDE RECORDS SUMMARY | 2024-12-23 17:06 | XMS_ITS | Encounter Summary ---
Author Organization [facility] Address [address] [place] [address] Care Team Providers Care Employee Health Rn Name Role Phone Ananth Bills MD Primary Care Provider [phone] Encounter Details Date Type Department Care Team (Late st Contact Info) Description 07/25/[address] 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 Gender Identity Not on file Sexual Orientation Not on file documented as of this encounter Plan of Treatment Not on file documented as of this encounter Procedures Procedure Name Priority Date/Time Associated Diagnosis Comments CARDIAC ENZYMES Routine 07/25/2006 6:19 PM CDT CBC WITH DIFFERENTIAL Routine 07/25/2006 6:19 PM CDT PTT Routine 07/25/2006 6:19 PM CDT PROTIME-INR Routine 07/25/2006 6:19 PM CDT BASIC METABOLIC PANEL Routine 07/25/2006 6:19 PM CDT CTA CHEST W WO CONTRAST Routine 07/25/2006 3:[address] HEAD WO CONTRAST Routine 07/25/2006 3 :09 PM CDT XR CHEST PA OR AP 1 VW Routine 07/25/2006 3:09 PM CDT documented in this encounter Results * (ABNORMAL) CBC WITH DIFFERENTIAL (07/25/2006 6:19 PM CDT) WBC 8.5 4.5 - 11.0 K/ul INTERFACE SYSTEM RBC 4.99 4.60 - 6.20 Mil/ul INTERFACE SYSTEM HEMOGLOBIN 14.6 14.0 - 18.0 g/dL INTERFACE SYSTEM HEMATOCRIT 42.4 41.0 - 53.0 % INTERFACE SYSTEM MCV 85.0 84.0 - 103.0 Fl INTERFACE SYSTEM MCH 29.3 27.0 - 34.0 pg INTERFACE SYSTEM MCHC 34.4 30.0 - 35.0 g/dL INTERFACE SYSTEM RDW 12.6 11.0 - 14.5 % INTERFACE SYSTEM PLATELETS 292 140 - 440 K/ul INTERFACE SYSTEM MPV 10.9 8.9 - 12.8 Fl INTERFACE SYSTEM NEUTROPHILS 56.2 42.2 - 75.2 % INTERFACE SYSTEM LYMPHOCYTES 30.9 24.0 - 44.0 % INTERFACE SYSTEM MONOCYTES 9.4 2.0 - 10.0 % INTERFACE SYSTEM EOSINOPHILS 2.9 0.0 - 7.0 % INTERFACE SYSTEM BASOPHILS 0.6 0.0 - 1.0 % INTERFACE SYSTEM NEUTROPHIL ABSOLUTE 4.8 2.0 - 8.0 K/ul INTERFACE SYSTEM LYMPHOCYTE ABSOLUTE 2.6 1.2 - 4.0 K/ul INTERFACE SYSTEM MONOCYTE ABSOLUTE 0.8(H) 0.1 - 0.6 K/ul INTERFACE SYSTEM EOSINOPHIL ABSOLUTE 0.3 0.0 - 0.7 K/ul INTERFACE SYSTEM BASOPHILS ABSOLUTE 0.1 0.0 - 0.2 K/ul INTERFACE SYSTEM 07/25/2006 6:19 PM CDT us Adelso Cabrera MD HEMATOLOGY ORDERABLES Edit ed INTERFACE SYSTEM Refer to clinic/hospital department * PTT (07/25/2006 6:19 PM CDT) PTT 29.2 21.6 - 35.6 Secs INTERFACE SYSTEM Comment: Therapeutic Range: Hi-level PE/DVT heparin protocol 80.1 -95.0 sec Lo-level PE/DVT heparin protocol 67.1 - 80.0 sec Cardiac Heparin Protocol 67.1 - 85.0 sec Neuro Heparin Protocol 67.1 - 80.0 sec As of 02/14/2006 note change in APTT Normal Range. 07/25/2006 6:19 PM CDT Adelso Cabrera MD HEMATOLOGY ORDERABLES Edit ed Performing Organization Address City/[facility]/ZIP Co de Phone Number INTERFACE SYSTEM Refer to clinic/hospital department * PROTIME-INR (07/25/2006 6:19 PM CDT) PROTIME 14.6 13.0 - 15.7 Secs INTERFACE SYSTEM Comment: As of 05 note change in normal range. INR 1.0 INTERFACE SYSTEM Comment: Expected Values for INR: DVT/PE Goal INR 2.5; range 2.0 - 3.0 Valve Replacement Tissue Goal INR 2.5; range 2.0 - 3.0 Mechanical Goal INR 3.0; range 2.5 - 3.5 POST-MT Goal INR 2.5; range 2.0 - 3.0 or Goal 3.0; range 2.5 - 3.5 Atrial Fibrillation Goal INR 2.5; range 2.0 - 3.0 Ischemic Stroke Goal INR 2.5; range 2.0 - 3.0 For additional information see Guidelines for Anticoagulation available from the pharmacy [facility]. 07/25/2006 6:19 PM CDT Adelso Cabrera MD HEMATOLOGY ORDERABLES Edit ed Performing Organization Address [facility]/ZIP Co de Phone Number INTERFACE SYSTEM Refer to clinic/hospital department * (ABNORMAL) BASIC METABOLIC PANEL (07/25/2006 6:19 PM CDT) GLUCOSE 92 70 - 110 mg/dL INTERFACE SYSTEM BUN 7(L) 9 - 20 mg/dL INTERFACE SYSTEM CREATININE 1.0 0.7 - 1.5 mg/dL INTERFACE SYSTEM SODIUM 135(L) 136 - 145 mEq/L INTERFACE SYSTEM POTASSIUM 4.1 3.5 - 5.0 mEq/L INTERFACE SYSTEM Comment:Specimen slightly he molyzed. Slight Lipemia. CHLORIDE 98 95 - 110 mEq/L INTERFACE SYSTEM CO2 30 22 - 32 mmol/l INTERFACE SYSTEM CALCIUM 9.6 8.4 - 10.5 mg/dL INTERFACE SYSTEM ANION GAP 11 9 - 20 mEq/L INTERFACE SYSTEM OSMOLALITY, CALCULATED 276 275 - 295 mOsm/Kg INTERFACE SYSTEM 07/25/2006 6:19 PM CDT Adelso Cabrera MD CHEMISTRY ORDERABLES Edite d Performing Organization Address [facility] Phone Number INTERFACE SYSTEM Refer to clinic/hospital department * CARDIAC ENZYMES (07/25/2006 6:19 PM CDT) [facility] TROPONIN I <0.1 0.0 - 1.3 ng/mL INTERFACE SYSTEM Comment: As of 06 the Troponin Reference Range has changed from 0.0-1.5 ng/ml to 0.0- 1.3 ng/ml due to a change in testing methodology. CKMB 1.4 0.0 - 5.0 ng/mL INTERFACE SYSTEM 07/25/2006 6:19 PM CDT Adelso Cabrera MD CHEMISTRY ORDERABLES Edite d Performing Organization Address [facility] Phone Number INTERFACE SYSTEM Refer to clinic/hospital department * XR CHEST PA OR AP (07/25/2006 3:09 PM CDT) Anatomical Region Laterality Modality Chest Other 07/25/2006 3:09 PM CDT Narrative 07/25/2006 3:09 PM CDT Exam: Chest - Portable ([id number])Date/Time of Exam: July 25, 2006 6:43:45 PMHistory: HIGH BP/NECK PAIN/HEADACHE. Findings: Comparisons: 02/20/2006 at 1453. Heart size is upper limits of normal. Aorta is minimally tortuous. Lungs are clear without evidencefor effusion, edema or infiltrates. Osseous structures appear within normal limits. Impression: 1. No acute cardiopulmonary disease. 2. No significant interval change. - Dictated By: Carlos Enrique Jiang M.D., Ph.D. Electronically Signed By: Carlos Enrique Jiang M.D., Ph.D. Date Signed: 07/26/06 Procedure Note 01/29/2009 Exam: Chest - Portable ([id number])Date/Time of Exam: July 25, 2006 6:43:45 PMHistory: HIGH BP/NECK PAIN/HEADACHE. Findings: Comparisons: 02/20/2006 at 1453. Heart size is upper limits of normal. Aorta is minimally tortuous. Lungsare clear without evidencefor effusion, edema or infiltrates. Osseous structures appear within normallimits. Impression: 1. No acute cardiopulmonary disease. 2. No significant interval change. - Dictated By: Carlos Enrique Jiang M.D., Ph.D. Electronically Signed By: Carlos Enrique Jiang M.D., Ph.D. Date Signed: 07/26/06 Adelso Cabrera MD DIAGNOSTIC IMAGING ORDERAB LES Final Result * CTA CHEST W WO CONTRAST (07/25/2006 3:09 PM CDT) Anatomical Region Laterality Modality Chest Other 07/25/2006 3:09 PM CDT Narrative 07/25/2006 3:09 PM CDT CTA chest 07/25/2006. History: High blood pressure. Neck pain. Headache. Procedure: A routine CT angiogram of the chest for pulmonary embolus was obtained. Noncontrast imageswere followed by thin cut images with 100 mL Optiray-350 IV contrast. Findings: 1. The pulmonary arteries are well opacified. There is no pulmonary embolus. 2. There is minimal dependent atelectasis in the posterior lung galan. 3. The lateral right middle lobe has a 3.5 mm noncalcified nodule, probably a granuloma. There are afew calcifications within the chest consistent with minimal old granulomatous disease. 4. There is no pneumothorax, pleural fluid, pericardial fluid, mediastinal mass, mediastinallymphadenopathy, or axillary lymphadenopathy. 5. The heart is enlarged. The thoracic aorta is normal without calcification, aneurysm, ordissection. 6. There is no visible abnormality of the spleen, partially included liver, adrenals, and pancreas. There are no calcified gallstones. 7. There are minimal osteophytes and some of the thoracic vertebral bodies. Impression: No pulmonary embolus. Cardiomegaly. Minimal dependent atelectasis in the posterior lungfields. Minimal old granulomatous disease. 3.5 mm noncalcified peripheral nodule in the right lobe,probably a noncalcified granuloma. If patient is at risk for lung cancer then a followup CT scan in6 months is suggested. Minimal osteophytes on some of the thoracic vertebral bodies. - Dictated By: Kayla Lucio M.D. Electronically Signed By: Kayla Lucio M.D. Date Signed: 07/25/06 Procedure Note 01/29/2009 CTA chest 07/25/2006. History: High blood pressure. Neck pain. Headache. Procedure: A routine CT angiogram of the chest for pulmonary embolus was obtained.Noncontrast imageswere followed by thin cut images with 100 mL Optiray-350 IV contrast. Findings: 1. The pulmonary arteries are well opacified. There is no pulmonaryembolus. 2. There is minimal dependent atelectasis in the posterior lung galan. 3. The lateral right middle lobe has a 3.5 mm noncalcified nodule,probably a granuloma. There are afew calcifications within the chest consistent with minimal old granulomatousdisease. 4. There is no pneumothorax, pleural fluid, pericardial fluid, mediastinalmass, mediastinallymphadenopathy, or axillary lymphadenopathy. 5. The heart is enlarged. The thoracic aorta is normal withoutcalcification, aneurysm, ordissection. 6. There is no visible abnormality of the spleen, partially includedliver, adrenals, and pancreas. There are no calcified gallstones. 7. There are minimal osteophytes and some of the thoracic vertebralbodies. Impression: No pulmonary embolus. Cardiomegaly. Minimal dependent atelectasis in theposterior lungfields. Minimal old granulomatous disease. 3.5 mm noncalcified peripheral nodule in theright lobe,probably a noncalcified granuloma. If patient is at risk for lung cancer then afollowup CT scan in6 months is suggested. Minimal osteophytes on some of the thoracic vertebral bodies. - Dictated By: Kayla Lucio M.D. Electronically Signed By: Kayla Lucio M.D. Date Signed: 07/25/06 us Adelso Cabrera MD CT ORDERABLES Final Resu lt * CT HEAD WO CONTRAST (07/25/2006 3:09 PM CDT) Anatomical Region Laterality Modality Head Other 07/25/2006 3:09 PM CDT Narrative 07/25/2006 3:[address] WITHOUT CONTRAST: 07/25/2006xial tomograms obtained through the head without IV contrast and compared to prior head CT of02/20/2006. No intracranial hemorrhage or abnormal extra-axial fluid collection. No midline shift or mass effect. Ventricular system and basilar cisterns intact. Visualized paranasal sinuses unremarkable. IMPRESSION: No apparent acute intracranial disease. - Dictated By: Steffi Turpin M.D. Electronically Signed By: Steffi Turpin M.D. Date Signed: 07/25/06 Procedure Note 01/29/[address] WITHOUT CONTRAST: 07/25/2006xial tomograms obtained through the head without IV contrast andcompared to prior head CT of02/20/2006. No intracranial hemorrhage or abnormal extra-axial fluid collection. Nomidline shift or mass effect. Ventricular system and basilar cisterns intact. Visualized paranasalsinuses unremarkable. IMPRESSION: No apparent acute intracranial disease. - Dictated By: Steffi Turpin M.D. Electronically Signed By: Steffi Turpin M.D. Date Signed: 07/25/06 us Adelso Cabrera MD CT ORDERABLES Final Resu lt documented in this encounter Visit Diagnoses Diagnosis Disturbance of skin sensation- Primary documented in this encounter Care Teams Employee Health Rn Relationship Specialty Start Date End Date Ananth Bills MD [address] [address] PCP - General 03/05/06 11/01/09 documented as of this encounter
--- OUTSIDE RECORDS SUMMARY | 2024-12-23 17:06 | XMS_ITS | Encounter Summary ---
Author Organization [facility] Address [address] [place] [address] Care Team Providers Care Safety Scientist Name Role Phone Ananth Bills MD Primary Care Provider [phone] Encounter Details Date Type Department Care Team (Latest Contact Info) Description 03/19/2006 Outpatient Historical [facility] [place] [facility] [address], [address] [place] [address] Lorenza Jones MD [address] [place] [address] Multiple Sclerosis (CMS/HCC) (Primary Dx); Pain in Limb Social History Tobacco Use Types Packs/Day Years Used Date Smoking Tobacco: Never Assessed Sex and Gender Information Value Date Recorded Sex Assigned at Not on file 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
--- OUTSIDE RECORDS SUMMARY | 2024-12-23 17:06 | XMS_ITS | Encounter Summary ---
Author Organization [facility] Address [address] [place] [address] Care Team Providers Care Belt Cleaner Name Role Phone Ananth Bills MD Primary Care Provider [phone] Encounter Details Date Type Department Care Team (Latest Contact Info) Description 04/02/2006 Outpatient Historical [facility] [place] [place] [facility] [address], [address] [place] [address] Lorenza Jones MD [address] [place] [address] Common Migraine without Mention of Intractable Migraine (Primary Dx); Lumbago Social History Tobacco Use Types Packs/Day Years Used Date Smoking Tobacco: Never Assessed Sex and Gender Information Value Date Recorded Sex Assigned at Not on file 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
--- OUTSIDE RECORDS SUMMARY | 2024-12-23 17:07 | XMS_ITS | Clinical Summary ---
Author Organization [facility] Address [address] Attn: Epic Prelude ADT NARCISA MARSHALL [address] Care Team Providers Care Membership Coordinator Name Role Phone Unavailable Primary Care Provider Unavailabl e Allergies No known active allergies Active Problems Problem Noted Date Diagnosed Date Melena 12/22/2009 Diarrhea 12/22/2009 Right-sided Abdominal Tender ness--possible early diverticulitis 11/03/2009 Obstipation 11/03/2009 Family History Medical History Relation Name Comments Diabetes Mother Heart Disease Mother Colon Cancer Neg Hx Relation Name Status Comments Brother Alive Father Alive Mother Alive Social History Tobacco Use Types Packs/Day Years Used Date Smoking Tobacco: Every Day Cigarettes Comments:Quit smoking: off a nd on Alcohol Use Standard Drinks/Week Comments Yes 3.3 (1 standard drink = 0.6 oz p ure alcohol) Sex and Gender Information Value Date Recorded Sex Assigned at Not on file 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 Gender Identity Not on file Sexual Orientation Not on file Plan of Treatment Health Maintenance Due Date Last Done Comments DTAP/TDAP/TD VACCINES (1 - Tdap) 1984 HEPATITIS B VACCINES (1 of 3 - 19+ 3-dose series) 1984 FIT-DNA Q 3 years 2010 FIT/FOBT Q 1 year 2010 Flex Sig/CT Colonography Q 5 years 2010 ZOSTER VACCINE (1 of 2) 08/10/2015 COLORECTAL SCREENING 12/24/2019 12/23/2009, 12/24/19 10 Colorectal Cancer Screening 12/24/2019 INFLUENZA VACCINE (#1) 2024 Medical Devices Implanted Type Area Chemical Process Analyst Device Identifier Shelf Expiration Date Model / Serial / Lot Log [id number] - Mesh Bard Inguinal Hernia - 1 - Mesh Ventralex Patch [id number] Implanted:Qty : 1 on 12/28/2009 Mesh N/A: Umbilical CR [employer] 01/09/2013 [id number] / NA / [id number] Procedures Procedure Name Priority Date/Time Associated Diagnosis Comments ENDOSCOPY, COLON, DIAGNOSTIC Routine 12/23/2009 10:55 AM CDT from Last 3 Months or Most Recently Relevant to Health Maintenance Results * ENDOSCOPY, COLON, DIAGNOSTIC (12/23/2009 10:55 AM CDT) 12/23/2009 10:5 5 AM CDT Narrative Procedure Note Robert Garcia MD - 12/22/2009 11:01 AM CDT Procedures signed by Robert Garcia MD at 12/22/2009 11:11 AM Author: Robert Garcia MD Service: -- Author Type: Physician Filed: 12/22/2009 11:11 AM Date of Service: 12/22/2009 11:01 AM Status:Signed Transportation Attendant: Robert Garcia MD (Physician) Procedure Orders 1. ENDOSCOPY, COLON, DIAGNOSTIC (PROCEDURE - KEITH) [[id number]]ordered by at 12/02/09 [address] [place], [place] ENDOSCOPY NAME KEIRA MCCORMICK [facility] # [id number] 1965 AGE 44Y PHYSICIAN Robert Garcia MD DATE: 12/22/2009 REFERRING PHYSICIAN: Ronnell Ashby DO PROCEDURE: Gastroscopy. INDICATIONS: Epigastric pain, GERD, diarrhea. MEDICATIONS: Fentanyl 50 mcg IV in addition to medications given forcolonoscopy. DESCRIPTION OF THE PROCEDURE: After reviewing the risks, benefits, andalternatives of procedure with the patient, he signed the consent form.He was placed in the left lateral decubitus position and IV conscioussedation was administered while monitoring blood pressure, pulse oximetryand EKG. The gastroscope was introduced through the mouth and underdirect visualization was advanced to the fourth portion of the duodenum.Careful inspection of the mucosa was made as the gastroscope waswithdrawn. The patient tolerated the procedure well and there were noimmediate complications. FINDINGS: Three erosions were present in the distal esophagus. Theesophagus was otherwise normal without ulcerations, stricture, mass orBarrett's esophagus. Retroflex examination of stomach revealed a normalproximal stomach. The rest of gastric mucosa and contour was normal aswas the duodenum. Biopsies were obtained from the second through fourthportions of the duodenum. IMPRESSION: Reflux erosive esophagitis. Biopsies obtained looking forceliac sprue. RECOMMENDATIONS: I will prescribe a proton pump inhibitor and follow upon biopsies. Robert Garcia MD medq D: [id number] V: [id number] cc: Ronnell Ashby DO Transcriptions Robert Garcia MD - 12/23/2009 10:55 AM CDT Procedures signed by Robert Garcia MD at 12/23/2009 11:19 AM Author: Robert Garcia MD Service: -- Author Type: Physician Filed: 12/23/2009 11:19 AM Date of Service: 12/23/2009 10:55 AM Status:Signed Transportation Attendant: Robert Garcia MD (Physician) Procedure Orders 1. ENDOSCOPY, COLON, DIAGNOSTIC (PROCEDURE - KEITH) [[id number]]ordered by at 12/02/09 [facility] [place], [place] ENDOSCOPY NAME KEIRA MCCORMICK [facility] # [id number] 1965 AGE 44Y PHYSICIAN Robert Garcia MD DATE: 12/22/2009 REFERRING PHYSICIAN: Ronnell Ashby DO PROCEDURE: Colonoscopy INDICATIONS: Right lower quadrant abdominal pain, diarrhea. DESCRIPTION OF THE PROCEDURE: After reviewing the risks, benefits, andalternatives of the procedure with the patient, he signed a consent form.He was placed in the left lateral decubitus position. An IV conscioussedation was administered while monitoring blood pressure, pulse oximetry,and EKG. The colonoscope was introduced through the rectum and underdirect visualization was advanced about 10 cm into the terminal ileum.Careful inspection of the mucosa was made as the colonoscope waswithdrawn.. The quality of the preparation was good. The patienttolerated the procedure well, and there are no immediate complications. FINDINGS: Retroflex examination of the rectum reveals small internalhemorrhoids. The rest of visualized colonic mucosa was normal withoutmasses, polyps, diverticula, or inflammation. The terminal ileum wasnormal. Random biopsies were obtained from the right colon. IMPRESSION: Internal hemorrhoids, otherwise normal visualized colon andterminal ileum. Biopsies obtained, looking for microscopic colitis. RECOMMENDATIONS: I will follow up on the biopsies. Robert Garcia MD medq D: [id number] V: [id number] cc: Ronnell Ashby DO Ronnell Ashby DO GI PROCEDURE ORDERABLES Final Result [facility] from Last 3 Months or Most Recently Relevant to Health Maintenance
--- OUTSIDE RECORDS SUMMARY | 2024-12-23 17:07 | XMS_ITS | Encounter Summary ---
[facility] Organization [facility] Address [address] [place] [address] Care Team Providers Care Rental Car Porter Name Role Phone Ananth Bills MD Primary Care Provider Encounter Details Date Type Department Care Team (Latest Contact Info) Description 03/19/2006 Outpatient Historical [facility] [address] 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 Gender Identity Not on file Sexual Orientation Not on file documented as of this encounter Plan of Treatment Not on file documented as of this encounter Procedures Procedure Name Priority Date/Time Associated Diagnosis Comments MULTIPLE SCLEROSIS EVALUATION Routine 03/19/2006 3:41 PM AGILITY INSTRUCTOR SPINAL FLUID CELL COUNT W/REFLEX DIFFERENTIAL Routine 03/19/2006 3:41 PM AGILITY INSTRUCTOR PROTEIN ELECTROPHORESIS W/REFLEX,SERUM Routine 03/19/2006 3:41 PM AGILITY INSTRUCTOR documented in this encounter Results * (ABNORMAL) PROTEIN ELECTROPHORESIS, SERUM (03/19/2006 3:41 PM AGILITY INSTRUCTOR) [facility] INTERP INTERFACE SYSTEM Comment: Normal serum protein electrophoresis. No monoclonal gammopathy detected. Interpreted by Ant Patel M.D., Ph.D. PROTEIN TOTAL, SPE 7.50 6.10 - 7.80 g/dL INTERFACE SYSTEM ALBUMIN SPE 4.43 3.50 - 5.30 g/dL INTERFACE SYSTEM ALPHA 1 GLOBULIN SPE .21 0.11 - 0.31 INTERFACE SYSTEM ALPHA 2 GLOBULIN SPE .73 0.58 - 1.16 g/dL INTERFACE SYSTEM BETA GLOBULIN .76 0.59 - 0.88 g/dL INTERFACE SYSTEM GAMMA GLOBULIN 1.37(H) 0.50 - 1.35 g/dL INTERFACE SYSTEM ALBUMIN %, 59.1 57.4 - 65.5 % INTERFACE SYSTEM % ALPHA 1 GLOBULIN 2.8 1.8 - 3.8 % INTERFACE SYSTEM % ALPHA 2 GLOBULIN 9.7 9.5 - 14.3 % INTERFACE SYSTEM % Beta Globulin 10.1 9.1 - 10.9 % INTERFACE SYSTEM % GAMMA GLOBULIN 18.3(H) 8.2 - 16.7 % INTERFACE SYSTEM ALBUMIN/GLOBULIN RATIO 1.44 g/dL INTERFACE SYSTEM 03/19/2006 3:41 PM AGILITY INSTRUCTOR Lorenza Jones MD CHEMISTRY ORDERABLES Luis lynda Performing Organization Address [facility] Phone Number INTERFACE SYSTEM Refer to clinic/hospital department * MULTIPLE SCLEROSIS EVALUATION (03/19/2006 3:41 PM AGILITY INSTRUCTOR) [facility] MS EVALUATION See Sep Report INTERFACE SYSTEM 03/19/2006 3:41 PM AGILITY INSTRUCTOR us Lorenza Jones MD BODY FLUIDS AND STOOLS E dited Performing Organization Address [facility] Co de Phone Number INTERFACE SYSTEM Refer to clinic/hospital department * (ABNORMAL) SPINAL FLUID CELL COUNT (03/19/2006 3:41 PM AGILITY INSTRUCTOR) [facility] ADD'NL COMMENT, CSF INTERFACE SYSTEM Comment: TUBE #4 CELL COUNT COLOR, CSF Colorless Colorless INTERFACE SYSTEM APPEARANCE, CSF Clear Clear INTE RFACE SYSTEM WBC, CSF 3 0 - 5 /mm3 INTERFACE SYSTEM RBC, CSF 0 0 - 0 /mm3 INTERFACE SYSTEM PROTEIN, CSF 59(H) 15 - 45 mg/dL INT ERFACE SYSTEM Comment: As of 05 the [facility] has changed testing methods. The new reference range is 15-45 The old referance range was 12-60 GLUCOSE, CSF 66 40 - 70 mg/dL INT ERFACE SYSTEM LYMPHOCYTES, CSF 81 % INT ERFACE SYSTEM Comment:16 CELLS COUNTED ON CONCENTRATED DIFF SMEAR. MONOCYTES/ HISTIOCYTES, CSF 19 % INTERFACE SYSTEM 03/19/2006 3:41 PM AGILITY INSTRUCTOR Lorenza Jones MD BODY FLUIDS AND STOOLS E dited INTERFACE SYSTEM Refer to clinic/hospital department documented in this encounter Visit Diagnoses Diagnosis Multiple sclerosis- Primary documented in this encounter Care Teams Rental Car Porter Relationship Specialty Start Date End Date Ananth Bills MD [address] [id number] PCP - General 03/05/06 11/01/09 documented as of this encounter
--- OUTSIDE RECORDS SUMMARY | 2024-12-23 17:07 | XMS_ITS | Encounter Summary ---
Author Organization [facility] Address [address] [place] [address] Care Team Providers Care Hand Crown Pouncer Name Role Phone Ananth Bills MD Primary Care Provider [phone] Encounter Details Date Type Department Care Team (Latest Contact Info) Description 02/26/2006 Outpatient Historical [facility] [address] 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
--- OUTSIDE RECORDS SUMMARY | 2024-12-23 17:07 | XMS_ITS | Patient Health Record ---
Author Organization [facility] Address [address] [place] [address] Care Team Providers Care Manager Consumer Name Role Phone Harvey ESCOBEDO, Alec Primary Care Provider Unavailab Alec Mendez Unavailable [phone] Migration, Provider Unavailable Unavailable Mary Ann Ruiz Unavailable [phone] Brooke Khan Unavailable [phone] Claudette Major Unavailable [phone] Galina, Dilan Unavailable [phone] Allergies Allergen (clinical drug ingredient) Drug/Non Drug Allergy documented on EMR Reaction Allergy Type Onset Date Status morphine Morphine Unknown Drug Allergy Active Results Component Value Reference Range Flag Notes Urine Drug Screen (cup read) - 11378 Reviewed date:03/26/2024 02:56:17 PM Interpretation: Performing Lab: Notes/Report: OPI + Tox Results Reviewed date:07/03/2024 10:16:28 AM Interpretation: Performing Lab: Notes/Report: Schedule Confirmation (Not y et reviewed by provider) Interpretation: Performing Lab: Notes/Report: MRI Lumbar Spine w/o Cont [facility] MRI Lumbar Spine w/o Con [id number] (Not yet reviewed by provider) Interpretation: Performing Lab: Notes/Report: See Below For Report Technique: Sagittal and axial T1 and T2 and sagittal STIR images of Yuridia Yang 11/17/2024 01:03:13 PM CDT > [id number] Authorized Approval Valid Through: 11/05/2024 - 02/02/2025 Facility changed to Read See Below For Report Schedule Confirmation (Not y et reviewed by provider) Interpretation: Performing Lab: Notes/Report: MRI Lumbar Spine w/o Cont Tox Results Reviewed date:10/02/2024 04:36:12 PM Interpretation: Performing Lab: Notes/Report: zzzUrine Drug Screen (confir mation by instrument) - [id number] Reviewed date:03/05/2024 01:32:39 PM Interpretation: Performing Lab: Notes/Report: MRI Lumbar Spine w/o Cont-[id number] (Not yet reviewed by provider) Interpretation: Performing Lab: Notes/Report: [id number] Urine Confirmation Panel (in strument) - [id number] Reviewed date:09/30/2024 05:22:13 PM Interpretation: Performing Lab: Notes/Report: 6-Acetylmorphine 0 <6 ng/mL N This jacqui t was developed and its performance characteristics determined by [facility]. It has not been cleared or approved by the U.S. Food and Drug Administration. 7-Aminoclonazepam 0 <60 ng/mL N This te st was developed and its performance characteristics determined by [facility]. It has not been cleared or approved by the U.S. Food and Drug Administration. Alprazolam 0 <60 ng/mL N This test was developed and its performance characteristics determined by [facility]. It has not been cleared or approved by the U.S. Food and Drug Administration. Amphetamine 0 <75 ng/mL N This test was developed and its performance characteristics determined by [facility]. It has not been cleared or approved by the U.S. Food and Drug Administration. aOH-Alprazolam 0 <60 ng/mL N This test was developed and its performance characteristics determined by [facility]. It has not been cleared or approved by the U.S. Food and Drug Administration. Buprenorphine 0.0 <7.5 ng/mL N This test w as developed and its performance characteristics determined by [facility]. It has not been cleared or approved by the U.S. Food and Drug Administration. Norbuprenorphine 0.0 <37.5 ng/mL N This te st was developed and its performance characteristics determined by [facility]. It has not been cleared or approved by the U.S. Food and Drug Administration. Carisoprodol 0 <75 ng/mL N This test wa s developed and its performance characteristics determined by [facility]. It has not been cleared or approved by the U.S. Food and Drug Administration. Codeine 0 <75 ng/mL N This test was developed and its performance characteristics determined by [facility]. It has not been cleared or approved by the U.S. Food and Drug Administration. EDDP 1513 <75 ng/mL H This test was developed and its performance characteristics determined by [facility]. It has not been cleared or approved by the U.S. Food and Drug Administration. Fentanyl 0 <6 ng/mL N This test was developed and its performance characteristics determined by [facility]. It has not been cleared or approved by the U.S. Food and Drug Administration. Hydrocodone 0 <75 ng/mL N This test was developed and its performance characteristics determined by [facility]. It has not been cleared or approved by the U.S. Food and Drug Administration. Hydromorphone 0 <75 ng/mL N This test w as developed and its performance characteristics determined by [facility]. It has not been cleared or approved by the U.S. Food and Drug Administration. Lorazepam 0 <60 ng/mL N This test was developed and its performance characteristics determined by [facility]. It has not been cleared or approved by the U.S. Food and Drug Administration. MDMA 0 <75 ng/mL N This test was developed and its performance characteristics determined by [facility]. It has not been cleared or approved by the U.S. Food and Drug Administration. Meperidine 0.0 <37.5 ng/mL N This test was developed and its performance characteristics determined by [facility]. It has not been cleared or approved by the U.S. Food and Drug Administration. Meprobamate 0 <75 ng/mL N This test was developed and its performance characteristics determined by [facility]. It has not been cleared or approved by the U.S. Food and Drug Administration. Methamphetamine 64 <75 ng/mL N This test was developed and its performance characteristics determined by [facility]. It has not been cleared or approved by the U.S. Food and Drug Administration. Methadone 1858 <75 ng/mL H This test was developed and its performance characteristics determined by [facility]. It has not been cleared or approved by the U.S. Food and Drug Administration. Morphine 0 <75 ng/mL N This test was developed and its performance characteristics determined by [facility]. It has not been cleared or approved by the U.S. Food and Drug Administration. Nordiazepam 0 <60 ng/mL N This test was developed and its performance characteristics determined by [facility]. It has not been cleared or approved by the U.S. Food and Drug Administration. Norfentanyl 0 <6 ng/mL N This test was developed and its performance characteristics determined by [facility]. It has not been cleared or approved by the U.S. Food and Drug Administration. Normeperidine 0.0 <37.5 ng/mL N This test was developed and its performance characteristics determined by [facility]. It has not been cleared or approved by the U.S. Food and Drug Administration. O-desmethyltramadol 0 <75 ng/mL N This test was developed and its performance characteristics determined by [facility]. It has not been cleared or approved by the U.S. Food and Drug Administration. Oxazepam 0 <60 ng/mL N This test was developed and its performance characteristics determined by [facility]. It has not been cleared or approved by the U.S. Food and Drug Administration. Oxycodone 0.0 <37.5 ng/mL N This test was developed and its performance characteristics determined by [facility]. It has not been cleared or approved by the U.S. Food and Drug Administration. Oxymorphone 0 <75 ng/mL N This test was developed and its performance characteristics determined by [facility]. It has not been cleared or approved by the U.S. Food and Drug Administration. Phencyclidine 0.0 <7.5 ng/mL N This test w as developed and its performance characteristics determined by [facility]. It has not been cleared or approved by the U.S. Food and Drug Administration. Tapentadol 0.0 <37.5 ng/mL N This test was developed and its performance characteristics determined by [facility]. It has not been cleared or approved by the U.S. Food and Drug Administration. Temazepam 0 <60 ng/mL N This test was developed and its performance characteristics determined by [facility]. It has not been cleared or approved by the U.S. Food and Drug Administration. Tramadol 0 <75 ng/mL N This test was developed and its performance characteristics determined by [facility]. It has not been cleared or approved by the U.S. Food and Drug Administration. Norhydrocodone 0 <75 ng/mL N This test was developed and its performance characteristics determined by [facility]. It has not been cleared or approved by the U.S. Food and Drug Administration. Noroxycodone 0 <38 ng/mL N This test wa s developed and its performance characteristics determined by [facility]. It has not been cleared or approved by the U.S. Food and Drug Administration. Pregabalin 0 <225 ng/mL N This test was developed and its performance characteristics determined by [facility]. It has not been cleared or approved by the U.S. Food and Drug Administration. Gabapentin 0 <225 ng/mL N This test was developed and its performance characteristics determined by [facility]. It has not been cleared or approved by the U.S. Food and Drug Administration. Benzoylecgonine 0.0 <37.5 ng/mL N This jacqui t was developed and its performance characteristics determined by [facility]. It has not been cleared or approved by the U.S. Food and Drug Administration. 4-Hydroxy Xylazine 0 <25 ng/mL N This t est was developed and its performance characteristics determined by [facility]. It has not been cleared or approved by the U.S. Food and Drug Administration. Urine Drug Screen (cup read) - [id number] Reviewed date:09/23/2024 11:46:42 AM Interpretation: Performing Lab: Notes/Report: MTD + Urine Confirmation Panel (in strument) - [id number] Reviewed date:07/01/2024 02:50:52 PM Interpretation: Performing Lab: Notes/Report: 6-Acetylmorphine 0 <6 ng/mL N This jacqui t was developed and its performance characteristics determined by [facility]. It has not been cleared or approved by the U.S. Food and Drug Administration. 7-Aminoclonazepam 0 <60 ng/mL N This te st was developed and its performance characteristics determined by [facility]. It has not been cleared or approved by the U.S. Food and Drug Administration. Alprazolam 0 <60 ng/mL N This test was developed and its performance characteristics determined by [facility]. It has not been cleared or approved by the U.S. Food and Drug Administration. Amphetamine 0 <75 ng/mL N This test was developed and its performance characteristics determined by [facility]. It has not been cleared or approved by the U.S. Food and Drug Administration. aOH-Alprazolam 0 <60 ng/mL N This test was developed and its performance characteristics determined by [facility]. It has not been cleared or approved by the U.S. Food and Drug Administration. Buprenorphine 0.0 <7.5 ng/mL N This test w as developed and its performance characteristics determined by [facility]. It has not been cleared or approved by the U.S. Food and Drug Administration. Norbuprenorphine 0.0 <37.5 ng/mL N This te st was developed and its performance characteristics determined by [facility]. It has not been cleared or approved by the U.S. Food and Drug Administration. Carisoprodol 0 <75 ng/mL N This test wa s developed and its performance characteristics determined by [facility]. It has not been cleared or approved by the U.S. Food and Drug Administration. Codeine 0 <75 ng/mL N This test was developed and its performance characteristics determined by [facility]. It has not been cleared or approved by the U.S. Food and Drug Administration. EDDP 0 <75 ng/mL N This test was developed and its performance characteristics determined by [facility]. It has not been cleared or approved by the U.S. Food and Drug Administration. Fentanyl 0 <6 ng/mL N This test was developed and its performance characteristics determined by [facility]. It has not been cleared or approved by the U.S. Food and Drug Administration. Hydrocodone 0 <75 ng/mL N This test was developed and its performance characteristics determined by [facility]. It has not been cleared or approved by the U.S. Food and Drug Administration. Hydromorphone 151 <75 ng/mL H This test w as developed and its performance characteristics determined by [facility]. It has not been cleared or approved by the U.S. Food and Drug Administration. Lorazepam 0 <60 ng/mL N This test was developed and its performance characteristics determined by [facility]. It has not been cleared or approved by the U.S. Food and Drug Administration. MDMA 0 <75 ng/mL N This test was developed and its performance characteristics determined by [facility]. It has not been cleared or approved by the U.S. Food and Drug Administration. Meperidine 0.0 <37.5 ng/mL N This test was developed and its performance characteristics determined by [facility]. It has not been cleared or approved by the U.S. Food and Drug Administration. Meprobamate 0 <75 ng/mL N This test was developed and its performance characteristics determined by [facility]. It has not been cleared or approved by the U.S. Food and Drug Administration. Methamphetamine 0 <75 ng/mL N This test was developed and its performance characteristics determined by [facility]. It has not been cleared or approved by the U.S. Food and Drug Administration. Methadone 0 <75 ng/mL N This test was developed and its performance characteristics determined by [facility]. It has not been cleared or approved by the U.S. Food and Drug Administration. Morphine 134 <75 ng/mL H This test was developed and its performance characteristics determined by [facility]. It has not been cleared or approved by the U.S. Food and Drug Administration. Nordiazepam 0 <60 ng/mL N This test was developed and its performance characteristics determined by [facility]. It has not been cleared or approved by the U.S. Food and Drug Administration. Norfentanyl 0 <6 ng/mL N This test was developed and its performance characteristics determined by [facility]. It has not been cleared or approved by the U.S. Food and Drug Administration. Normeperidine 0.0 <37.5 ng/mL N This test was developed and its performance characteristics determined by [facility]. It has not been cleared or approved by the U.S. Food and Drug Administration. O-desmethyltramadol 0 <75 ng/mL N This test was developed and its performance characteristics determined by [facility]. It has not been cleared or approved by the U.S. Food and Drug Administration. Oxazepam 0 <60 ng/mL N This test was developed and its performance characteristics determined by [facility]. It has not been cleared or approved by the U.S. Food and Drug Administration. Oxycodone 0.0 <37.5 ng/mL N This test was developed and its performance characteristics determined by [facility]. It has not been cleared or approved by the U.S. Food and Drug Administration. Oxymorphone 0 <75 ng/mL N This test was developed and its performance characteristics determined by [facility]. It has not been cleared or approved by the U.S. Food and Drug Administration. Phencyclidine 0.0 <7.5 ng/mL N This test w as developed and its performance characteristics determined by [facility]. It has not been cleared or approved by the U.S. Food and Drug Administration. Tapentadol 12.9 <37.5 ng/mL N This test was developed and its performance characteristics determined by [facility]. It has not been cleared or approved by the U.S. Food and Drug Administration. Temazepam 0 <60 ng/mL N This test was developed and its performance characteristics determined by [facility]. It has not been cleared or approved by the U.S. Food and Drug Administration. Tramadol 0 <75 ng/mL N This test was developed and its performance characteristics determined by [facility]. It has not been cleared or approved by the U.S. Food and Drug Administration. Norhydrocodone 0 <75 ng/mL N This test was developed and its performance characteristics determined by [facility]. It has not been cleared or approved by the U.S. Food and Drug Administration. Noroxycodone 0 <38 ng/mL N This test wa s developed and its performance characteristics determined by [facility]. It has not been cleared or approved by the U.S. Food and Drug Administration. Pregabalin 0 <225 ng/mL N This test was developed and its performance characteristics determined by [facility]. It has not been cleared or approved by the U.S. Food and Drug Administration. Gabapentin 0 <225 ng/mL N This test was developed and its performance characteristics determined by [facility]. It has not been cleared or approved by the U.S. Food and Drug Administration. Benzoylecgonine 0.0 <37.5 ng/mL N This jacqui t was developed and its performance characteristics determined by [facility]. It has not been cleared or approved by the U.S. Food and Drug Administration. 4-Hydroxy Xylazine 0 <25 ng/mL N This t est was developed and its performance characteristics determined by [facility]. It has not been cleared or approved by the U.S. Food and Drug Administration. Urine Drug Screen (cup read) - [id number] Reviewed date:06/24/2024 03:33:43 PM Interpretation: Performing Lab: Notes/Report: OPI + Urine Drug Screen (cup read) - 34563 Reviewed date:01/23/2024 05:05:12 PM Interpretation: Performing Lab: Notes/Report: OPI + Reason For Referral No Information Medications Medication SIG (Take, Route, Frequency, Duration) Notes Start Date End Date Status Methocarbamol 750 MG Tablet take 1 tablet by mouth every 4-6 hours as needed Oral; Duration: 30 Methocarbamol 750mg Tablet take 1 tablet by mouth every 4-6 hours as needed 05/27/2013 Not-Taking Movantik 25 MG Tablet TAKE 1 TABLET BY MOUTH IN THE MORNING; Duration: 30 Not-Taking Losartan Potassium 50 MG Tablet 1 tablet Orally Once a day Active Ativan 1 MG Tablet 1 tablet at bedtime as needed Orally twice a day; Duration: 1 days As needed Take on pill 30 minutes before MRI and one pill right before MRI if needed Fill 12/15/2024 for 12/16/2024 MRI 12/15/2024 Active DULoxetine HCl Activ e Morphine Sulfate ER 15 MG Tablet Extended Release 1 tablet Orally twice a day; Duration: 30 days Not to exceed 2 per day Fill on 12/03/2024 for shipping for 12/07/2024 12/02/2024 Active Morphine Sulfate 15 MG Tablet 1 tablet as needed Orally every 12 hours; Duration: 30 days As needed Do not exceed 4 per day Fill on 12/03/2024 for shipping for 12/07/2024 12/02/2024 Active Social History Tobacco Use: Social History Observation Description Date Details (start date - stop date) Never Smoker NA - NA Social History Tobacco Use: Social Info Question Answer Notes Tobacco Control (Standard) Tobacco use: Nonsmoker Additional Details Category Social Info Options Details Drugs/Alcohol: Do you drink alcohol? No Migrated Social History Migrated Social History Alcoholic beverages? - No, Currently on disability? - Yes, Drug or substance abuse? - No, Marital Status - , Nonprescription drug use? - No, Participation in detoxification or rehabilitation - No, Smoking - No, Working currently? - No Section Notes: Patient is on disability Patient is on disability Patient is on disability Patient is on disability Patient is on disability Patient is on disability Patient is on disability Problems Problem Type SNOMED Code ICD Code Onset Dates Problem Status W/U Status Risk Notes Problem Chronic pain syndrome (480135178) Chronic pain syndrome (G89.4) 2023 Active confirmed Problem Radiculopathy due to lumbar intervertebral disc disorder (851474370690001) Intervertebral disc disorders with radiculopathy, lumbar region (M51.16) Active confirmed r26.9 Problem Lumbosacral spondylosis with radiculopathy (420273783) Lumbosacral spondylosis with radiculopathy (M47.27) Active confirmed Problem Chronic pain syndrome (809031939) Chronic pain disorder (G89.4) Active confirmed Problem Cervical spondylosis without myelopathy (286636959) Cervical spondylosis with radiculopathy (M47.22) Active confirmed Problem Abnormal gait (02873789) Abnormality of gait and mobility (R26.9) Active confirmed Problem Failed back syndrome (28544278) Failed back syndrome (M96.1) Active confirmed cervical Problem Convulsion (38591814) Seizure(s); other (780.39) 2017 Active confirmed [id number] 1- Problem Hypertriglyceridemia (877627603) Hypertriglyceridem ia (272.1) 2011 Active confirmed [id number] 1- Problem Acquired hypothyroidism (177921298) Acquired hypothyroidism, other specified cause (244.8) 2015 Active confirmed [id number] 1- Problem 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 [id number] 1- Problem Essential hypertension (94075454) Essential hypertension (401.1) 2016 Active confirmed [id number] 1- Problem Conversion disorder (468700354) Conversion disorder (300.11) 2018 Problem resolved confirmed [id number] 1- Problem Posttraumatic stress disorder (78160180) Posttraumatic stress disorder (309.81) 2017 Problem resolved confirmed [id number] 1- Problem Disorder of cervical spine (130797064) Other syndromes affecting cervical region (723.8) 2012 Problem resolved confirmed [id number] 1- Problem Edema (924819643) Edema (782.3) 2011 Problem resolved confirmed [id number] 1- Problem Abnormal weight gain (416114561) Abnormal weight gain (783.1) 2011 Problem resolved confirmed [id number] 1- Problem Headache (52475066) Headache (784.0) 07/09 Problem resolved confirmed [id number] 1- Problem Aphasia (78686078) Aphasia (784.3) 2018 Problem resolved confirmed [id number] 1- Problem Heartburn (21203280) Heartburn (787.1) 2012 Problem resolved confirmed [id number] 1- Problem Urinary frequency (817180214) Urinary frequency (788.41) 2011 Problem resolved confirmed [id number] 1- Problem Drug allergy (532747845) Other drug allergy (995.27) 2015 Problem resolved confirmed [id number] 1- Problem Removal of suture (50322543) Encounter for removal of sutures (V58.32) 2012 Problem resolved confirmed [id number] 1- Problem Screening for malignant neoplasm of prostate (063101278) Screening for prostate cancer (V76.44) 2017 Problem resolved confirmed [id number] 1- Problem Hypothyroidism (80883296) Hypothyroidism (244.9) 2016 Problem resolved confirmed [id number] 1- Problem Fibromyalgia (374866640) Fibromyalgia (729.1) 2016 Problem resolved confirmed [id number] 1- Problem Neck pain (56921838) Neck pain (723.1) 2016 Problem resolved confirmed [id number] 1- Problem Umbilical hernia (791642313) Umbilical hernia (553.1) 2014 Problem resolved confirmed [id number] 1- Problem Fainting (810069852) Fainting (780.2) 2017 Problem resolved confirmed [id number] 1- Problem Headache (80418921) Headache (307.81) 2011 Problem resolved confirmed [id number] 1- Problem Hypotension (31649888) Hypotension, other (458.8) 2017 Problem resolved confirmed [id number] 1- Problem Shortness of breath (724818625) Shortness of breath (786.09) 2016 Problem resolved confirmed [id number] 1- Problem Mass in head or neck (755097909) Neck lump (784.2) 2018 Problem resolved confirmed [id number] 1- Problem Disorder of hematopoietic system (35766915) Other abnormal findings on blood examination (790.99) 2016 Problem resolved confirmed [id number] 1- Problem Depressive disorder (16143503) Depressive disorder not elsewhere classified (311) 2017 Problem resolved confirmed [id number] 1- Problem Hematochezia (507141755) Hematochezia (578.1) 2017 Problem resolved confirmed [id number] 1- Problem Insomnia (881939076) Insomnia (307.41) 2017 Problem resolved confirmed [id number] 1- Problem Precordial pain (48814411) Precordial chest pain (786.51) 2016 Problem resolved confirmed [id number] 1- Problem Paresthesia (55750685) Paresthesia (782.0) 2011 Problem resolved confirmed [id number] 1- Problem Atypical chest pain (583528001) Atypical chest pain (786.59) 2015 Problem resolved confirmed [id number] 1- Problem Acute CVA (436) 2010 Problem resolved confirmed [id number] 1- Problem Cervical radiculopathy (72209286) Cervical radiculopathy (723.4) 2014 Problem resolved confirmed [id number] 1- Problem Congestive heart failure (97367980) CHF (428.0) 2012 Problem resolved confirmed [id number] 1- Problem Facial pain (69721172) Facial pain (784.0) 2017 Problem resolved confirmed [id number] 1- Problem Increased frequency of urination (425135673) Frequent urination (788.41) 2017 Problem resolved confirmed [id number] 1- Problem Left lower quadrant pain (827268529) Left lower quadrant abdominal pain (789.04) 2017 Problem resolved confirmed [id number] 1- Problem Left ventricular hypertrophy (15244442) LVH (429.3) 2010 Problem resolved confirmed [id number] 1- Problem Flatulence, eructation and gas pain (621255926) Bloating (787.3) 2012 Problem resolved confirmed [id number] 1- Problem Arthralgia of the ankle and/or foot (453528541) Joint pain, ankle and foot (719.47) 2013 Problem resolved confirmed [id number] 1- Problem Numbness (91829665) Numbness (782.0) 12/10 Problem resolved confirmed [id number] 1- Problem White coat hypertension (692096429) White coat hypertension (796.2) 2013 Problem resolved confirmed [id number] 1- Problem Edema of optic disc (125606539) Papilledema, unspecified (377.00) 2017 Problem resolved confirmed [id number] 1- Problem Spinal fluid leakage at cervical site (997.09) 2016 Problem resolved confirmed [id number] 1- Vital Signs Height-cm 180.34 cm 12/02/2024 Weight-kg 104.78 kg 12/02/2024 Height 71 in 12/02/2024 Weight 231 lbs 12/02/2024 BMI 32.21 kg/m2 12/02/2024 Encounters Encounter Location Date Provider Diagnosis [facility] [address] [place] [address] 12/25/2023 Alec Yeager [facility] [address] [place] [address] 01/23/2024 Claudette Major Chronic pain syndrom e G89.4 ; Cervical spondylosis with radiculopathy M47.22 ; 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.362 ; Lumbosacral spondylosis with radiculopathy M47.27 ; Failed back syndrome, lumbar M96.1 ; Abnormality of gait and mobility R26.9 and technician terminal and repeater (current) use of opiate analgesic Z79.891 [facility] [place] [address] [place] [address] 02/24/2024 Dilan Mojica Chronic pain disorde r G89.4 ; Cervical spondylosis with radiculopathy M47.22 ; Intervertebral disc disorders with radiculopathy, lumbar region M51.16 ; Lumbosacral spondylosis with radiculopathy M47.27 ; Failed back syndrome M96.1 ; Abnormality of gait and mobility R26.9 and Analgesic use Z79.899 [facility] [address] [address] 03/26/2024 Claudette Major Chronic pain disorde r G89.4 ; Cervical spondylosis with radiculopathy M47.22 ; Intervertebral disc disorders with radiculopathy, lumbar region M51.16 ; Lumbosacral spondylosis with radiculopathy M47.27 ; Failed back syndrome M96.1 ; Abnormality of gait and mobility R26.9 and prison (current) use of opiate analgesic Z79.891 [facility] [address] [address] 04/15/2024 lAec Yeager Chronic pain disorde r G89.4 ; Cervical spondylosis with radiculopathy M47.22 ; Intervertebral disc disorders with radiculopathy, lumbar region M51.16 ; Lumbosacral spondylosis with radiculopathy M47.27 ; Failed back syndrome M96.1 ; Abnormality of gait and mobility R26.9 and prison (current) use of opiate analgesic Z79.891 [facility] [address] [address] 05/27/2024 Alec Yeager Chronic pain disorde r G89.4 ; Cervical spondylosis with radiculopathy M47.22 ; Intervertebral disc disorders with radiculopathy, lumbar region M51.16 ; Lumbosacral spondylosis with radiculopathy M47.27 ; Failed back syndrome M96.1 ; Abnormality of gait and mobility R26.9 and technician terminal and repeater (current) use of opiate analgesic Z79.891 [facility] [address] [address] 06/24/2024 Alec Yeager Chronic pain disorde r G89.4 ; Cervical spondylosis with radiculopathy M47.22 ; Intervertebral disc disorders with radiculopathy, lumbar region M51.16 ; Lumbosacral spondylosis with radiculopathy M47.27 ; Failed back syndrome M96.1 ; Abnormality of gait and mobility R26.9 and technician terminal and repeater (current) use of opiate analgesic Z79.891 [facility] [address] [address] 07/22/2024 Alec Yeager Chronic pain disorde r G89.4 ; Cervical spondylosis with radiculopathy M47.22 ; Intervertebral disc disorders with radiculopathy, lumbar region M51.16 ; Lumbosacral spondylosis with radiculopathy M47.27 ; Failed back syndrome M96.1 ; Abnormality of gait and mobility R26.9 and technician terminal and repeater (current) use of opiate analgesic Z79.891 [facility] [address] [address] 08/12/2024 Alec Yeager Chronic pain disorde r G89.4 ; Cervical spondylosis with radiculopathy M47.22 ; Intervertebral disc disorders with radiculopathy, lumbar region M51.16 ; Lumbosacral spondylosis with radiculopathy M47.27 ; Failed back syndrome M96.1 ; Abnormality of gait and mobility R26.9 and prison (current) use of opiate analgesic Z79.891 [facility] [address] [address] 09/23/2024 Alec Yeager Chronic pain disorde r G89.4 ; Cervical spondylosis with radiculopathy M47.22 ; Intervertebral disc disorders with radiculopathy, lumbar region M51.16 ; Lumbosacral spondylosis with radiculopathy M47.27 ; Failed back syndrome M96.1 ; Abnormality of gait and mobility R26.9 and prison (current) use of opiate analgesic Z79.891 [facility] [address] [address] 11/04/2024 Alec Yeager Chronic pain disorde r G89.4 ; Cervical spondylosis with radiculopathy M47.22 ; Intervertebral disc disorders with radiculopathy, lumbar region M51.16 ; Lumbosacral spondylosis with radiculopathy M47.27 ; Failed back syndrome M96.1 ; Abnormality of gait and mobility R26.9 and technician terminal and repeater (current) use of opiate analgesic Z79.891 [facility] [place] [address] [place] [place] [address] 12/02/2024 Alec Yeager Chronic pain disorde r G89.4 ; Cervical spondylosis with radiculopathy M47.22 ; Intervertebral disc disorders with radiculopathy, lumbar region M51.16 ; Lumbosacral spondylosis with radiculopathy M47.27 ; Failed back syndrome M96.1 ; Abnormality of gait and mobility R26.9 and prison (current) use of opiate analgesic Z79.891 [facility] 0 01/04/2024 Provider Migration [facility] 0 0 01/05/2024 Provider Migration [facility] [place] [address] [place] [place] [address] 01/23/2024 Alec [facility] [place] [address] [place] [address] 01/27/2024 Alec [place] [facility] [address] [place] [place] [address] 01/31/2024 Alec [facility] [address] [place] [address] 02/24/2024 Alec [facility] [address] [place] [address] 03/26/2024 Alec [facility] [address] [place] [place] [address] 04/06/2024 Alec [facility] [address] [place] [address] 04/10/2024 Mary Ann Ruiz [facility] [place] [address] [place] [place] [address] 04/13/2024 Alec Yeager Lumbosacral spondylosis with radiculopathy M47.27 [facility] [place] [address] [place] [place] [address] 04/17/2024 Mary Ann Sara Lumbosacral spondylosis with radiculopathy M47.27 [facility] [place] [address] [place] [address] 04/17/2024 Mary Ann Sara Lumbosacral spondylosis with radiculopathy M47.27 [facility] [place] [address] [place] [address] 04/20/2024 Alec [place]ey Lumbosacral spondylosis with radiculopathy M47.27 [facility] [address] [place] [address] 04/20/2024 Alec Yeager Lumbosacral spondylosis with radiculopathy M47.27 [facility] [address] [place] [place] [address] 05/11/2024 Mary Ann Sara Lumbosacral spondylosis with radiculopathy M47.27 [facility] [place] [address] [place] [address] 05/12/2024 Brooke buckner Lumbosacral spondylosis with radiculopathy M47.27 [facility] [place] [address] [place] [address] 05/15/2024 Alec Toy Lumbosacral spondylosis with radiculopathy M47.27 [facility] [address] [place] [address] 07/07/2024 Mary Ann Sara Lumbosacral spondylosis with radiculopathy M47.27 [facility] [place] [address] [place] [address] 07/13/2024 Alec Yeager Cervical spondylosis with radiculopathy M47.22 [facility] [place] [address] [facility] [place] [address] 12/14/2024 Alec Yeager Failed back syndrome M96.1 [facility] [place] [address] [facility] [place] [address] 12/15/2024 Alec Yeager Failed back syndrome M96.1 Assessments Encounter Date Diagnosis (ICD Code) Assessment Notes Treatment Notes Treatment Clinical Notes Section Notes 01/23/2024 Chronic pain syndrome (ICD-10 - G89.4) I had a nice discussion with the patient today regarding his chronic pain complaints. He states he is doing very well on his current medication regimen. His main complaint has been constipation which over the past several months has gotten worse. He reports he has tried MiraLAX and magnesium citrate as well as other [id number] treatments. After discussion I will trial him on Movantik 25 mg daily. He denies any other changes since we last seen him or any untoward side effects of the medication. He will continue his medication at present level and return to clinic in 1 month to monitor for treatment effectiveness and compliance. 01/23/2024 Cervical spondylosis with radiculopathy (ICD-10 - M47.22) 02/24/2024 Chronic pain disorder (ICD-10 - G89.4) I had a nice discussion with the patient today regarding his chronic pain complaints. At his last visit, he was prescribed Movantik to help with his constipation which he states has helped some but he still does struggle with constipation. He is also trying other alternatives and would like to continue with the Movantik on an as needed basis. As far as his medications go, those do help to a certain extent so those will be continued as well. He does report that he did have kidney stones recently that he passed so that was really hard on him but he is doing slightly better. I have reviewed his previous drug screen which was consistent along with accurate pill count today. Refills will be provided today and he will follow-up with us in a month. 02/24/2024 Cervical spondylosis with radiculopathy (ICD-10 - M47.22) I had a nice discussion with the patient today regarding his chronic pain complaints. At his last visit, he was prescribed Movantik to help with his constipation which he states has helped some but he still does struggle with constipation. He is also trying other alternatives and would like to continue with the Movantik on an as needed basis. As far as his medications go, those do help to a certain extent so those will be continued as well. He does report that he did have kidney stones recently that he passed so that was really hard on him but he is doing slightly better. I have reviewed his previous drug screen which was consistent along with accurate pill count today. Refills will be provided today and he will follow-up with us in a month. 03/26/2024 Chronic pain disorder (ICD-10 - G89.4) I had a nice discussion with the patient today regarding his chronic pain complaints. He states he is typically doing very well on his current medication regimen. However, on Saturday he was sitting in a wooden chair and the chair broke causing him to fall and hit the floor. He states he has been very sore since then and has been using heating pads and sitting in his recliner. He is hoping this will pass soon. He also states he continues to have a lot of trouble with constipation and has tried a multitude of things which do not seem to be helping. He states he is seeing his PCP on Saturday about this. He denies any other changes since we seen him or any other untoward side effects of the medication. He will continue his medication at present level and return to clinic in 1 month to monitor for treatment effectiveness and compliance. 03/26/2024 Cervical spondylosis with radiculopathy (ICD-10 - M47.22) 04/15/2024 Chronic pain disorder (ICD-10 - G89.4) I had a nice visit with the patient today regarding his chronic pain issues. Unfortunately, he has been in a bind because his pharmacy can't get his extended release morphine. He has been advised to take 4x daily of the immediate release but this has not controlled his pain as well as the extended release. We will try switching him over to Percocet for the next month and see how he does. We will bring him back at that point and figure out what our next plan is. The patient continues with chronic pain requiring treatment to help restore function and improve quality of life. Risks of opioid therapy as well as interaction of opioids with alcohol, illicit drugs, muscle relaxers, and other sedative medications are reviewed briefly with patient again today. The patient has trialed all other reasonable treatment options and uses the medication to alleviate pain in order to remain active and rest with less pain. No clinically relevant medication side effects are noted. Last UDS and [place] ORDER ENTRY CLERK reviewed today. Patient is advised that best long-term goals include increased activity, core strengthening, proper weight management, coping strategies, avoidance of painful triggers, and targeted interventional therapy. We will see the patient for routine follow up in accordance with all clinic policies. We did remind patient today of current guidelines to decrease opioid when possible. We will continue to stress nonopioid treatment. The patient continues with chronic pain requiring treatment to help restore function and improve quality of life. Risks of opioid therapy as well as interaction of opioids with alcohol, illicit drugs, muscle relaxers, and other sedative medications are reviewed briefly with patient again today. The patient has trialed all other reasonable treatment options and uses the medication to alleviate pain in order to remain active and rest with less pain. No clinically relevant medication side effects are noted. Last UDS and AR ORDER ENTRY CLERK reviewed today. Patient is advised that best long-term goals include increased activity, core strengthening, proper weight management, coping strategies, avoidance of painful triggers, and targeted interventional therapy. We will see the patient for routine follow up in accordance with all clinic policies. We did remind patient today of current guidelines to decrease opioid when possible. We will continue to stress nonopioid treatment. 04/15/2024 Cervical spondylosis with radiculopathy (ICD-10 - M47.22) 04/17/2024 Lumbosacral spondylosis with radiculopathy (ICD-10 - M47.27) 04/17/2024 Lumbosacral spondylosis with radiculopathy (ICD-10 - M47.27) 04/20/2024 Lumbosacral spondylosis with radiculopathy (ICD-10 - M47.27) 04/20/2024 Lumbosacral spondylosis with radiculopathy (ICD-10 - M47.27) 05/11/2024 Lumbosacral spondylosis with radiculopathy (ICD-10 - M47.27) 05/12/2024 Lumbosacral spondylosis with radiculopathy (ICD-10 - M47.27) 05/15/2024 Lumbosacral spondylosis with radiculopathy (ICD-10 - M47.27) 05/27/2024 Chronic pain disorder (ICD-10 - G89.4) I had a nice visit with the patient today regarding his chronic pain issues. He is doing alright but obviously has not had as much relief with the immediate release as he had with the extended release morphine but unfortunately this is not an option currently due to lack of availability. We had talked about switching him to Percocet at the last visit and sent in a prescription but then, after talking with his , he noted that he had tried this in the past without success. We subsequently switched him back to the immediate release morphine. We did speak about straight oxycodone but at this point he is wanting to continue with the immediate release morphine only. We will see how he does this month but consideration may be given to a trial of methadone as well. 07/07/2024 Lumbosacral spondylosis with radiculopathy (ICD-10 - M47.27) 07/13/2024 Cervical spondylosis with radiculopathy (ICD-10 - M47.22) 06/24/2024 Chronic pain disorder (ICD-10 - G89.4) I had a long discussion with the patient today regarding his chronic pain issues. Overall, he is not doing all that great as he has continued to struggle to get the extended release medication and has just been trying to get by on the immediate release. He has exhausted a number of different medications in the past including morphine, oxycodone, and dilaudid. He has not tried methadone so we discussed this at length. With this in mind, he is open to trying that so we will get a prescription for methadone 5mg twice a day and see how he does. If we need to adjust this in a week, we will, up to 3x day. If he is doing well on it, we will continue it for the next 3 weeks. 07/22/2024 Chronic pain disorder (ICD-10 - G89.4) I had a nice visit with the patient today regarding his chronic pain issues. He feels like he's finally getting to be stabilized on the medication with the methadone 3 times daily. He's looking pretty good today and he seems to be doing alright, so we will continue the methadone 3 times daily for the next month and then follow up with him thereafter. 08/12/2024 Chronic pain disorder (ICD-10 - G89.4) I had a nice visit with the patient today regarding his chronic pain issues. He feels like he's on a pretty good track with the Methadone. He is going to speak with Dr. Gabriel regarding maybe adjusting the dosage on his Gabapentin, but overall, he's fairly pleased with it. We will leave everything unchanged for now and plan to see him back in about a month. 09/23/2024 Chronic pain disorder (ICD-10 - G89.4) I had a nice visit with the patient today regarding his chronic pain issues. He is switching to a different pharmacy through his insurance, and he says they can get both ER and IR morphine, and he would like to switch back to that. He did do relatively well on that, so we will make that transition and see if that is actually the case. I am not overly optimistic that he will be able to get this on a regular basis, but we will see. We will plan to send a 2-week prescription of methadone to the normal pharmacy, and then send the morphine prescription to his other pharmacy and see what happens. We will follow up with him in 6 weeks and proceed accordingly. 11/04/2024 Chronic pain disorder (ICD-10 - G89.4) I had a nice visit with the patient regarding his chronic pain issues. He feels like his pain is under fair control, but he has been experiencing worsening symptoms when he tries to walk and feels like his legs are going numb if he tries to walk very far. Taking this into account, he would like to change his regimen because he's worried that he's going to continue to worsen. A review of his imaging history showed that it has been a couple of years since his last MRI. We will order a new one and continue his medications unchanged. We will see him back in a month and proceed accordingly. 12/02/2024 Chronic pain disorder (ICD-10 - G89.4) I had a nice visit with the patient regarding his chronic pain issues. Unfortunately, he had a rough stretch due to his mother passing away recently. Aside from this stressful event, he continues to find the medication relatively effective. He is happy to be back on morphine. We will continue his medications unchanged. We will follow up with him in a month and proceed accordingly. 12/15/2024 Failed back syndrome (ICD-10 - M96.1) 12/14/2024 Failed back syndrome (ICD-10 - M96.1) 12/02/2024 Cervical spondylosis with radiculopathy (ICD-10 - M47.22) 11/04/2024 Cervical spondylosis with radiculopathy (ICD-10 - M47.22) 09/23/2024 Cervical spondylosis with radiculopathy (ICD-10 - M47.22) 08/12/2024 Cervical spondylosis with radiculopathy (ICD-10 - M47.22) 07/22/2024 Cervical spondylosis with radiculopathy (ICD-10 - M47.22) 06/24/2024 Cervical spondylosis with radiculopathy (ICD-10 - M47.22) 05/27/2024 Cervical spondylosis with radiculopathy (ICD-10 - M47.22) 04/13/2024 Lumbosacral spondylosis with radiculopathy (ICD-10 - M47.27) 04/15/2024 Intervertebral disc disorders with radiculopathy, lumbar region (ICD-10 - M51.16) 03/26/2024 Intervertebral disc disorders with radiculopathy, lumbar region (ICD-10 - M51.16) 01/23/2024 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 At his last visit, he was prescribed Movantik to help with his constipation which he states has helped some but he still does struggle with constipation. He is also trying other alternatives and would like to continue with the Movantik on an as needed basis. As far as his medications go, those do help to a certain extent so those will be continued as well. He does report that he did have kidney stones recently that he passed so that was really hard on him but he is doing slightly better. I have reviewed his previous drug screen which was consistent along with accurate pill count today. Refills will be provided today and he will follow-up with us in a month. 02/24/2024 Lumbosacral spondylosis with radiculopathy (ICD-10 - M47.27) I had a nice discussion with the patient today regarding his chronic pain complaints. At his last visit, he was prescribed Movantik to help with his constipation which he states has helped some but he still does struggle with constipation. He is also trying other alternatives and would like to continue with the Movantik on an as needed basis. As far as his medications go, those do help to a certain extent so those will be continued as well. He does report that he did have kidney stones recently that he passed so that was really hard on him but he is doing slightly better. I have reviewed his previous drug screen which was consistent along with accurate pill count today. Refills will be provided today and he will follow-up with us in a month. 01/23/2024 Lumbosacral spondylosis with radiculopathy (ICD-10 - M47.27) 03/26/2024 Lumbosacral spondylosis with radiculopathy (ICD-10 - M47.27) 04/15/2024 Lumbosacral spondylosis with radiculopathy (ICD-10 - M47.27) 05/27/2024 Intervertebral disc disorders with radiculopathy, lumbar region (ICD-10 - M51.16) 06/24/2024 Intervertebral disc disorders with radiculopathy, lumbar region (ICD-10 - M51.16) 07/22/2024 Intervertebral disc disorders with radiculopathy, lumbar region (ICD-10 - M51.16) 09/23/2024 Intervertebral disc disorders with radiculopathy, lumbar region (ICD-10 - M51.16) 08/12/2024 Intervertebral disc disorders with radiculopathy, lumbar region (ICD-10 - M51.16) 11/04/2024 Intervertebral disc disorders with radiculopathy, lumbar region (ICD-10 - M51.16) 12/02/2024 Intervertebral disc disorders with radiculopathy, lumbar region (ICD-10 - M51.16) 12/02/2024 Lumbosacral spondylosis with radiculopathy (ICD-10 - M47.27) 11/04/2024 Lumbosacral spondylosis with radiculopathy (ICD-10 - M47.27) 09/23/2024 Lumbosacral spondylosis with radiculopathy (ICD-10 - M47.27) 08/12/2024 Lumbosacral spondylosis with radiculopathy (ICD-10 - M47.27) 07/22/2024 Lumbosacral spondylosis with radiculopathy (ICD-10 - M47.27) 06/24/2024 Lumbosacral spondylosis with radiculopathy (ICD-10 - M47.27) 04/15/2024 Failed back syndrome (ICD-10 - M96.1) cervical 05/27/2024 Lumbosacral spondylosis with radiculopathy (ICD-10 - M47.27) 03/26/2024 Failed back syndrome (ICD-10 - M96.1) cervical 02/24/2024 Failed back syndrome (ICD-10 - M96.1) I had a nice discussion with the patient today regarding his chronic pain complaints. At his last visit, he was prescribed Movantik to help with his constipation which he states has helped some but he still does struggle with constipation. He is also trying other alternatives and would like to continue with the Movantik on an as needed basis. As far as his medications go, those do help to a certain extent so those will be continued as well. He does report that he did have kidney stones recently that he passed so that was really hard on him but he is doing slightly better. I have reviewed his previous drug screen which was consistent along with accurate pill count today. Refills will be provided today and he will follow-up with us in a month. 01/23/2024 Failed back syndrome, lumbar (ICD-10 - M96.1) 01/23/2024 Abnormality of gait and mobility (ICD-10 - R26.9) 02/24/2024 Abnormality of gait and mobility (ICD-10 - R26.9) I had a nice discussion with the patient today regarding his chronic pain complaints. At his last visit, he was prescribed Movantik to help with his constipation which he states has helped some but he still does struggle with constipation. He is also trying other alternatives and would like to continue with the Movantik on an as needed basis. As far as his medications go, those do help to a certain extent so those will be continued as well. He does report that he did have kidney stones recently that he passed so that was really hard on him but he is doing slightly better. I have reviewed his previous drug screen which was consistent along with accurate pill count today. Refills will be provided today and he will follow-up with us in a month. 04/15/2024 Abnormality of gait and mobility (ICD-10 - R26.9) 03/26/2024 Abnormality of gait and mobility (ICD-10 - R26.9) 05/27/2024 Failed back syndrome (ICD-10 - M96.1) cervical 06/24/2024 Failed back syndrome (ICD-10 - M96.1) cervical 07/22/2024 Failed back syndrome (ICD-10 - M96.1) cervical 08/12/2024 Failed back syndrome (ICD-10 - M96.1) cervical 09/23/2024 Failed back syndrome (ICD-10 - M96.1) cervical 11/04/2024 Failed back syndrome (ICD-10 - M96.1) cervical 12/02/2024 Failed back syndrome (ICD-10 - M96.1) cervical 12/02/2024 Abnormality of gait and mobility (ICD-10 - R26.9) 11/04/2024 Abnormality of gait and mobility (ICD-10 - R26.9) 09/23/2024 Abnormality of gait and mobility (ICD-10 - R26.9) 08/12/2024 Abnormality of gait and mobility (ICD-10 - R26.9) 07/22/2024 Abnormality of gait and mobility (ICD-10 - R26.9) 06/24/2024 Abnormality of gait and mobility (ICD-10 - R26.9) 05/27/2024 Abnormality of gait and mobility (ICD-10 - R26.9) 04/15/2024 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 At his last visit, he was prescribed Movantik to help with his constipation which he states has helped some but he still does struggle with constipation. He is also trying other alternatives and would like to continue with the Movantik on an as needed basis. As far as his medications go, those do help to a certain extent so those will be continued as well. He does report that he did have kidney stones recently that he passed so that was really hard on him but he is doing slightly better. I have reviewed his previous drug screen which was consistent along with accurate pill count today. Refills will be provided today and he will follow-up with us in a month. 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 We will monitor with in-office testing (rapid testing) today and review the results prior to dispensing prescription. All positive results will be sent for quantitative analysis to ensure accuracy and quantify amounts. Any expected positive results that return negative will also be sent for quantitative analysis. Any questionable read or any medication we cannot test for in the office confidently will be sent for quantitative analysis, as well. Patient has been made aware of this policy and agrees to abide by our urine testing policy. 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 We will monitor with in-office testing (rapid testing) today and review the results prior to dispensing prescription. All positive results will be sent for quantitative analysis to ensure accuracy and quantify amounts. Any expected positive results that return negative will also be sent for quantitative analysis. Any questionable read or any medication we cannot test for in the office confidently will be sent for quantitative analysis, as well. Patient has been made aware of this policy and agrees to abide by our urine testing policy. 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 Alec Yeager. I, Dr. Alec Yeager, personally performed the services described in this documentatio n, as scribed by Eugenio Gonzales, and it is both accurate and complete. 05/27/2024 Eugenio Kimball am scribing for Dr. Alec Yeager. I, Dr. Alec Yeager, personally performed the services described in this documentation, as scribed by Eugenio Gonzales, and it is both accurate and complete. 06/24/2024 Eugenio Kimball am scribing for Dr. Alec Yeager. I, Dr. Alec Yeager, personally performed the services described in this documentation, as scribed by Eugenio Gonzales, and it is both accurate and complete. 07/22/2024 Other Bina Boykin NCMA, am scribing for Dr. Alec Yeager. I, Dr. Alec Yeager, personally performed the services described in this documentation, as scribed by PARVEEN Leon , and it is both accurate and complete. 08/12/2024 Other Silvia Boykin am scribing for Dr. Yeager. Dr. Toy Boykin, personally performed the services described in this documentation, as scribed by Silvia Hemphill, and it is both accurate and complete. 09/23/2024 Bina Kimball NCMA, am scribing for Dr. Alec Yeager. I, Dr. Alec Yeager, personally performed the services described in this documentation, as scribed by PARVEEN Leon, and it is both accurate and complete. 11/04/2024 Other Ann-Marie Boykin, am scribing for Dr. Alec Yeager. I, Dr. Alec Yeager, personally performed the services described in this documentation, as scribed by Ann-Marie Laura, and it is both accurate and complete. 12/02/2024 Other Lucretia, Ann-Marie Laura, am scribing for Dr. Alec Yeager. I, Dr. Alec Yeager, personally performed the services described in this documentation, as scribed by Ann-Marie Laura, and it is both accurate and complete. Plan Of Treatment Pending Test Test Name Order Date MRI Lumbar Spine w/o [id number] 11/05/19 Schedule Confirmation 12/16/2024 Schedule Confirmation 12/16/2024 [facility] MRI Lumbar Spine w/o Cont-[id number] 10/2024 Next Appt Details Provider Name:Alec Yeager, 01/13/2025 01:00:00 PM, [address] [place], [address], Insurance Providers Payer Name Payer Address Payer Phone Subscriber Number Group Number Insured Name Patient Relationship to Insured Coverage Start Date Coverage End Date [facility] Medicare Replacement [address] [place] [address] [phone] [id number] Ben Nielsen Self - patient is the insured 4 [facility] [address] [place] [address] [id number] Ben Nielsen Self - patient is the insured 7 9 [place] [address] [address] [place] [address] [id number] Ben Nielsen Self - patient is the insured Medical (General) History Medical History History ICD Code HyperlipidemiaHypertensionMy ocardial Infarction: x 1; Grade 2 diastolic dysfunction Gastroesophageal Reflux Disease 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
--- OUTSIDE RECORDS SUMMARY | 2024-12-23 17:07 | XMS_ITS | Encounter Summary ---
Author Organization [facility] Address [address] [place] [address] Care Team Providers Care Wooden Barrel Mechanic Name Role Phone Ananth Bills MD Primary Care Provider [phone] Encounter Details Date Type Department Care Team (Latest Contact Info) Description 04/22/2002 Outpatient Historical [facility] Rehan Fernando MD [address] [place], [place] [id number] HYPERTENSION NOS (Primary Dx) Social History Tobacco Use Types Packs/Day Years Used Date Smoking Tobacco: Never Assessed Sex and Gender Information Value Date Recorded Sex Assigned at Not on file 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
--- OUTSIDE RECORDS SUMMARY | 2024-12-23 17:07 | XMS_ITS | Encounter Summary ---
Author Organization [facility] Address [address] [place] [address] Care Team Providers Care Criminal Investigative Agent Name Role Phone Ananth Bills MD Primary Care Provider [phone] Encounter Details Date Type Department Care Team (Latest Contact Info) Description 03/05/2006 Outpatient Historical [facility] Neurology [address], [address] [place] [address] Lorenza Jones MD [address] [place] [address] Multiple Sclerosis (CMS/HCC) (Primary Dx) Social History Tobacco Use Types Packs/Day Years Used Date Smoking Tobacco: Never Assessed Sex and Gender Information Value Date Recorded Sex Assigned at Not on file 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
--- OUTSIDE RECORDS SUMMARY | 2024-12-23 17:07 | XMS_ITS | Clinical Summary ---
Author Organization [facility] Address [address] [place] [address] Phone Care Team Providers Care Ground Host/Hostess Name Role Phone Unavailable Primary Care Provider Unavailabl e Allergies No known active allergies Medications metoprolol tartrate (LOPRESSOR) 25 mg Oral tablet Take 1 Tab by mouth 2 times daily. 60 Tab 0 11/05/2009 Active oxyCODONE-aceta minophen (PERCOCET) 5-325 mg Oral tablet Take 1-2 Tabs by mouth every 4 hours as needed for Pain. May take one to 2 tablets every 4-6 hours as needed 40 Tab None 12/28/2009 Active Active Problems Problem Noted Date Diagnosed Date Diarrhea 12/22/2009 Melena 12/22/2009 Right-sided Abdominal Tender ness--possible early diverticulitis 11/03/2009 Obstipation 11/03/2009 Family History Medical History Relation Name Comments Diabetes Mother Heart Disease Mother Colon Cancer Neg Hx Relation Name Status Comments Brother Alive Father Alive Mother Alive Social History Tobacco Use Types Packs/Day Years Used Date Smoking Tobacco: Every Day Cigarettes 0.5 10 Comments:off and on Alcohol Use Standard Drinks/Week Comments Yes 3.3 (1 standard drink = 0.6 oz p ure alcohol) Weekly Sex and Gender Information Value Date Recorded Sex Assigned at Not on file 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 Gender Identity Not on file Sexual Orientation Not on file Last Filed Vital Signs Vital Sign Reading Time Taken Comments Blood Pressure 142/82 01/11/2010 1:46 PM CDT Pulse 82 01/11/2010 1:46 PM CDT Temperature 36.7 C (98 F) 12/28/2009 9:50 AM CDT Respiratory Rate 18 12/28/2009 10:20 AM CDT Oxygen Saturation 93% 12/28/2009 10:20 AM CDT Inhaled Oxygen Concentration - - Weight 105.7 kg (233 lb) 01/11/2010 1:46 PM CDT Height 177.8 cm (5' 10 ) 12/28/2009 6:10 AM CDT Body Mass Index 33.43 12/28/2009 6:10 AM CDT Plan of Treatment Health Maintenance Due Date Last Done Comments DTAP/TDAP/TD VACCINES (1 - Tdap) 1984 HEPATITIS B VACCINES (1 of 3 - 19+ 3-dose series) 1984 FIT-DNA Q 3 years 2010 FIT/FOBT Q 1 year 2010 Flex Sig/CT Colonography Q 5 years 2010 ZOSTER VACCINE (1 of 2) 08/10/2015 COLORECTAL SCREENING 12/24/2019 12/23/2009, 12/23/19 10 Colorectal Cancer Screening 12/24/2019 INFLUENZA VACCINE (#1) 2024 Medical Devices Implanted Type Area Optical Effects Line Up Person Device Identifier Shelf Expiration Date Model / Serial / Lot Log [id number] - Mesh Bard Inguinal Hernia - 1 [place] [id number] Implanted:Qty: 1 on 12/28/2009 at [facility] Mesh N/A: Umbilical CR [employer] 01/09/2013 [id number] / NA / [id number] Procedures Procedure Name Priority Date/Time Associated Diagnosis Comments ENDOSCOPY, COLON, DIAGNOSTIC Routine 12/23/2009 10:55 AM CDT Right-sided Abdominal Tenderness--possible early diverticulitis from Last 3 Months or Most Recently Relevant to Health Maintenance Results * ENDOSCOPY, COLON, DIAGNOSTIC (12/23/2009 10:55 AM CDT) Narrative Transcriptions Robert Garcia MD - 12/22/2009 11:01 AM CDT [place] [place] [facility] NAME KEIRA MCCORMICK CSN # [id number] 1965 AGE 44Y PHYSICIAN Robert Garcia MD [...] upon biopsies. Robert Garcia MD medq D: [id number] V: [id number] cc: DO Radha Knott Jesse G, MD - 12/23/2009 10:55 AM CDT [place] [facility] NAME KEIRA MCCORMICK [facility] # [id number] 1965 AGE 44Y PHYSICIAN Robert Garcia MD [...] the biopsies. Robert Garcia MD medq D: [id number] V: [id number] cc: Ronnell Ashby DO Ronnell Ashby DO GI PROCEDURE ORDERABLES Final Result from Last 3 Months or Most Recently Relevant to Health Maintenance Advance Directives For more information, please contact: [phone] * Full Code (Latest Code Status on File) Date Activated Date Inactivated Comments 12/28/2009 5:41 AM 12/28/2009 3:57 PM * Full Code Date Activated Date Inactivated Comments 12/22/2009 8:03 AM 12/22/2009 2:51 PM
--- OUTSIDE RECORDS SUMMARY | 2024-12-23 17:07 | XMS_ITS | Encounter Summary ---
Author Organization [facility] Address [address] [place] [address] Care Team Providers Care Lap Layer Name Role Phone Ananth Bills MD Primary Care Provider [phone] Encounter Details Date Type Department Care Team (Latest Contact Info) Description 03/05/2006 Outpatient Historical [facility] Ananth Bills MD [address] [place] [address] Multiple Sclerosis (CMS/HCC) (Primary Dx) Social History Tobacco Use Types Packs/Day Years Used Date Smoking Tobacco: Never Assessed Sex and Gender Information Value Date Recorded Sex Assigned at Not on file 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
--- OUTSIDE RECORDS SUMMARY | 2024-12-23 17:07 | XMS_ITS | Encounter Summary ---
Author Organization [facility] Address [address] [place] [address] Care Team Providers Care Helper Steel Fabrication Name Role Phone Ananth Bills MD Primary Care Provider [phone] Encounter Details Date Type Department Care Team (Latest Contact Info) Description 04/17/1999 Outpatient Historical [facility] Podiatry-Alon Smith [place] [address] [place] [address] Bal Almeida, DPM [address] [place] [address] Ingrowing nail (Primary Dx) Social History Tobacco Use Types Packs/Day Years Used Date Smoking Tobacco: Never Assessed Sex and Gender Information Value Date Recorded Sex Assigned at Not on file 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
--- OUTSIDE RECORDS SUMMARY | 2024-12-23 17:07 | XMS_ITS | Encounter Summary ---
Author Organization [facility] Address [address] [place] [address] Care Team Providers Care Correctional Officer Captain Name Role Phone Ananth Bills MD Primary Care Provider Encounter Details Date Type Department Care Team (Late st Contact Info) Description 02/20/2006 Outpatient Historical HIS IN BED Maycol Finnegan MD NO ADDRESS ON FILE Navjot Roberto MD NO ADDRESS ON FILE Other Chest Pain (Primary Dx) Social History Tobacco Use Types Packs/Day Years Used Date Smoking Tobacco: Never Assessed Sex and Gender Information Value Date Recorded Sex Assigned at Not on file Legal Sex Male 6:14 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 Gender Identity Not on file Sexual Orientation Not on file documented as of this encounter Plan of Treatment Not on file documented as of this encounter Procedures Procedure Name Priority Date/Time Associated Diagnosis Comments LIPID PANEL Routine 02/21/2006 7:55 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 BASIC METABOLIC PANEL Routine 02/21/2006 7:55 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 CARDIAC ENZYMES Routine 02/21/2006 3:01 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 CARDIAC ENZYMES Routine 02/20/2006 9:00 PM CL[employer] DYE[employer] RANGE TENDER CT HEAD W WO CONTRAST Routine 02/20/2006 8:00 PM CLOTH DYEING RANGE TENDER XR CHEST PA OR AP 1 VW Routine 02/20/2006 8:00 PM CLOTH DYEING RANGE TENDER POC CREATININE Routine 02/20/2006 3:40 PM CLOTH DYEING RANGE TENDER CARDIAC ENZYMES Routine 02/20/2006 3:00 PM CLOTH DYEING RANGE TENDER CBC WITH DIFFERENTIAL Routine 02/20/2006 3:00 PM CLOTH DYEING RANGE TENDER PTT Routine 02/20/2006 3:00 PM CLOTH DYEING RANGE TENDER PROTIME-INR Routine 02/20/2006 3:00 PM CLOTH DYEING RANGE TENDER BASIC METABOLIC PANEL Routine 02/20/2006 3:00 PM CLOTH DYEING RANGE TENDER documented in this encounter Results * (ABNORMAL) LIPID PANEL (02/21/2006 7:55 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) CHOLESTEROL 167 75 - 200 mg/dL INTERFACE SYSTEM TRIGLYCERIDE 365(H) 0 - 179 mg/dL INTERFACE SYSTEM CALCULATED TOTAL CHOLESTEROL TO HDL RATIO 3.80 3.43 - 4.97 INTERFACE SYSTEM HDL 44 40 - 60 mg/dL INTERFACE SYSTEM LDL CALCULATED 50 0 - 130 mg/dL INTERFACE SYSTEM 02/21/2006 7:55 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 us Navjot Roberto MD CHEMISTRY ORDERABLES Final Res ult INTERFACE SYSTEM Refer to clinic/hospital department * (ABNORMAL) BASIC METABOLIC PANEL (02/21/2006 7:55 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) GLUCOSE 85 70 - 110 mg/dL INTERFACE SYSTEM BUN 16 9 - 20 mg/dL INTERFACE SYSTEM CREATININE 0.9 0.7 - 1.5 mg/dL INTERFACE SYSTEM SODIUM 135(L) 136 - 145 mEq/L INTERFACE SYSTEM POTASSIUM 4.7 3.5 - 5.0 mEq/L INTERFACE SYSTEM CHLORIDE 97 95 - 110 mEq/L INTERFACE SYSTEM CO2 31 22 - 32 mmol/l INTERFACE SYSTEM ANION GAP 12 9 - 20 mEq/L INTERFACE SYSTEM OSMOLALITY, CALCULATED 280 275 - 295 mOsm/Kg INTERFACE SYSTEM CALCIUM 9.0 8.4 - 10.5 mg/dL INTERFACE SYSTEM 02/21/2006 7:55 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 us Navjot Roberto MD CHEMISTRY ORDERABLES Final Res ult Performing Organization Address [facility] Phone Number INTERFACE SYSTEM Refer to clinic/hospital department * CARDIAC ENZYMES (02/21/2006 3:01 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) CKMB 0.8 0.0 - 5.0 ng/mL INTERFACE SYSTEM TROPONIN I 0.1 0.0 - 1.5 ng/mL INTERFACE SYSTEM 02/21/2006 3:01 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 Darrion Rod MD CHEMISTRY ORDERABLES Sarahy l Result Performing Organization Address [facility] Phone Number INTERFACE SYSTEM Refer to clinic/hospital department * CARDIAC ENZYMES (02/20/2006 9:00 PM CLOTH DYEING RANGE TENDER) CKMB 1.0 0.0 - 5.0 ng/mL INTERFACE SYSTEM TROPONIN I 0.1 0.0 - 1.5 ng/mL INTERFACE SYSTEM 02/20/2006 9:00 PM CLOTH DYEING RANGE TENDER Darrion Rod MD CHEMISTRY ORDERABLES Sarahy l Result Performing Organization Address [facility] Phone Number INTERFACE SYSTEM Refer to clinic/hospital department * CT HEAD W WO CONTRAST (02/20/2006 8:00 PM CLOTH DYEING RANGE TENDER) Anatomical Region Laterality Modality Head Other 02/20/2006 8:00 PM CLOTH DYEING RANGE TENDER Narrative 02/20/2006 8:00 [address] R[employer] [address]ER [address] SCAN OF THE HEAD WITH AND WITHOUT IV CONTRAST INFUSION 02/20/2006. HISTORY: Headaches. Helical scanning of the brain was performed before and after intravenous infusion of 100 mL ofOptiray-240. The ventricles are of normal size and configuration. There are no hemorrhages. I see no masses. Thereare no enhancing abnormalities. The bony calvarium appears to be intact. IMPRESSION: Negative CT scan of the head. - Dictated By: Subhash Glass M.D. Electronically Signed By: Subhash Glass M.D. Date Signed: 02/26/06 AMA Procedure Note Provider, Historical - 01/27/2009 CT SCAN OF THE HEAD WITH AND WITHOUT IV CONTRAST INFUSION 02/20/2006. HISTORY: Headaches. Helical scanning of the brain was performed before and after intravenousinfusion of 100 mL ofOptiray-240. The ventricles are of normal size and configuration. There are nohemorrhages. I see no masses. Thereare no enhancing abnormalities. The bony calvarium appears to be intact. IMPRESSION: Negative CT scan of the head. - Dictated By: Subhash Glass M.D. Electronically Signed By: Subhash Glass M.D. Date Signed: 02/26/06 AMA Darrion Rod MD CT ORDERABLES Final Res ult * XR CHEST PA OR AP (02/20/2006 8:00 PM CLOTH DYEING RANGE TENDER) Anatomical Region Laterality Modality Chest Other 02/20/2006 8:00 PM CLOTH DYEING RANGE TENDER Narrative 02/20/2006 8:00 PM CLOTH DYEING RANGE TENDER PORTABLE AP UPRIGHT CHEST: 02/20/2006 AT 1453HISTORY: Chest pain. COMPARISONS: None. The lungs are clear. Cardiomediastinal silhouette and pulmonary vessels are unremarkable. IMPRESSION: No active chest disease. - Dictated By: Galina Zhang M.D. Electronically Signed By: Galina Zhang M.D. Date Signed: 02/20/06 Procedure Note Provider, Historical - 01/27/2009 PORTABLE AP UPRIGHT CHEST: 02/20/2006 AT 1453HISTORY: Chest pain. COMPARISONS: None. The lungs are clear. Cardiomediastinal silhouette and pulmonary vesselsare unremarkable. IMPRESSION: No active chest disease. - Dictated By: Galina Zhang M.D. Electronically Signed By: Galina Zhang M.D. Date Signed: 02/20/06 Darrion Rod MD DIAGNOSTIC IMAGING ORDERA BLES Final Result * (ABNORMAL) POC CREATININE (02/20/2006 3:40 PM CLOTH DYEING RANGE TENDER) CREATININE POC 0.7(L) 0.7 - 1.5 mg/dL INTERFACE SYSTEM 02/20/2006 3:40 PM CLOTH DYEING RANGE TENDER Maycol Finnegan MD POINT OF CARE TESTING Final Res ult INTERFACE SYSTEM Refer to clinic/hospital department * (ABNORMAL) CBC WITH DIFFERENTIAL (02/20/2006 3:00 PM CLOTH DYEING RANGE TENDER) WBC 10.0 4.5 - 11.0 K/ul INTERFACE SYSTEM RBC 5.26 4.60 - 6.20 Mil/ul INTERFACE SYSTEM HEMOGLOBIN 14.7 14.0 - 18.0 g/dL INTERFACE SYSTEM HEMATOCRIT 44.2 41.0 - 53.0 % INTERFACE SYSTEM MCV 84.0 84.0 - 103.0 Fl INTERFACE SYSTEM MCH 27.9 27.0 - 34.0 pg INTERFACE SYSTEM MCHC 33.3 30.0 - 35.0 g/dL INTERFACE SYSTEM RDW 12.5 11.0 - 14.5 % INTERFACE SYSTEM PLATELETS 309 140 - 440 K/ul INTERFACE SYSTEM MPV 11.0 8.9 - 12.8 Fl INTERFACE SYSTEM NEUTROPHILS 64.8 42.2 - 75.2 % INTERFACE SYSTEM LYMPHOCYTES 24.5 24.0 - 44.0 % INTERFACE SYSTEM MONOCYTES 7.6 2.0 - 10.0 % INTERFACE SYSTEM EOSINOPHILS 2.7 0.0 - 7.0 % INTERFACE SYSTEM BASOPHILS 0.4 0.0 - 1.0 % INTERFACE SYSTEM NEUTROPHIL ABSOLUTE 6.5 2.0 - 8.0 K/uL INTERFACE SYSTEM LYMPHOCYTE ABSOLUTE 2.5 1.2 - 4.0 K/ul INTERFACE SYSTEM MONOCYTE ABSOLUTE 0.8(H) 0.1 - 0.6 K/ul INTERFACE SYSTEM EOSINOPHIL ABSOLUTE 0.3 0.0 - 0.7 K/ul INTERFACE SYSTEM BASOPHILS ABSOLUTE 0.0 0.0 - 0.2 K/ul INTERFACE SYSTEM 02/20/2006 3:00 PM CLOTH DYEING RANGE TENDER us Darrion Rod MD HEMATOLOGY ORDERABLES Fin al Result Performing Organization Address [facility] Co de Phone Number INTERFACE SYSTEM Refer to clinic/hospital department * PTT (02/20/2006 3:00 PM CLOTH DYEING RANGE TENDER) PTT 28.4 21.6 - 35.6 Secs INTERFACE SYSTEM Comment: Therapeutic Range: Hi-level PE/DVT heparin protocol 80.1 -95.0 sec Lo-level PE/DVT heparin protocol 67.1 - 80.0 sec Cardiac Heparin Protocol 67.1 - 85.0 sec Neuro Heparin Protocol 67.1 - 80.0 sec As of 02/14/2006 note change in APTT Normal Range. 02/20/2006 3:00 PM CLOTH DYEING RANGE TENDER Darrion Rod MD HEMATOLOGY ORDERABLES Fin al Result Performing Organization Address [facility] Phone Number INTERFACE SYSTEM Refer to clinic/hospital department * PROTIME-INR (02/20/2006 3:00 PM CLOTH DYEING RANGE TENDER) PROTIME 14.2 13.0 - 15.7 Secs INTERFACE SYSTEM Comment: As of 05 note change in normal range. INR 1.0 INTERFACE SYSTEM Comment: Expected Values for INR: DVT/PE Goal INR 2.5; range 2.0 - 3.0 Valve Replacement Tissue Goal INR 2.5; range 2.0 - 3.0 Mechanical Goal INR 3.0; range 2.5 - 3.5 POST-NH Goal INR 2.5; range 2.0 - 3.0 or Goal 3.0; range 2.5 - 3.5 Atrial Fibrillation Goal INR 2.5; range 2.0 - 3.0 Ischemic Stroke Goal INR 2.5; range 2.0 - 3.0 For additional information see Guidelines for Anticoagulation available from the pharmacy [facility]. 02/20/2006 3:00 PM CLOTH DYEING RANGE TENDER Darrion Rod MD HEMATOLOGY ORDERABLES Fin al Result Performing Organization Address [facility] Phone Number INTERFACE SYSTEM Refer to clinic/hospital department * (ABNORMAL) BASIC METABOLIC PANEL (02/20/2006 3:00 PM CLOTH DYEING RANGE TENDER) GLUCOSE 128(H) 70 - 110 mg/dL INTERFACE SYSTEM BUN 14 9 - 20 mg/dL INTERFACE SYSTEM CREATININE 0.8 0.7 - 1.5 mg/dL INTERFACE SYSTEM SODIUM 135(L) 136 - 145 mEq/L INTERFACE SYSTEM POTASSIUM 3.7 3.5 - 5.0 mEq/L INTERFACE SYSTEM CHLORIDE 97 95 - 110 mEq/L INTERFACE SYSTEM CO2 25 22 - 32 mmol/l INTERFACE SYSTEM ANION GAP 17 9 - 20 mEq/L INTERFACE SYSTEM OSMOLALITY, CALCULATED 280 275 - 295 mOsm/Kg INTERFACE SYSTEM CALCIUM 9.6 8.4 - 10.5 mg/dL INTERFACE SYSTEM 02/20/2006 3:00 PM CLOTH DYEING RANGE TENDER Darrion Rod MD CHEMISTRY ORDERABLES Sarahy l Result Performing Organization Address [facility] de Phone Number INTERFACE SYSTEM Refer to clinic/hospital department * CARDIAC ENZYMES (02/20/2006 3:00 PM CLOTH DYEING RANGE TENDER) CKMB 1.4 0.0 - 5.0 ng/mL INTERFACE SYSTEM TROPONIN I 0.1 0.0 - 1.5 ng/mL INTERFACE SYSTEM 02/20/2006 3:00 PM CLOTH DYEING RANGE TENDER Darrion Rod MD CHEMISTRY ORDERABLES Sarahy l Result Performing Organization Address [facility] Phone Number INTERFACE SYSTEM Refer to clinic/hospital department documented in this encounter Visit Diagnoses Diagnosis Other chest pain- Primary documented in this encounter Care Teams Correctional Officer Captain Relationship Specialty Start Date End Date Ananth Bills MD [address] [address] PCP - General 03/05/06 11/01/09 documented as of this encounter
--- OUTSIDE RECORDS SUMMARY | 2024-12-23 17:07 | XMS_ITS | Encounter Summary ---
Author Organization [facility] Address [address] [place] [address] Care Team Providers Care Certified Medical Records Coder Name Role Phone Ananth Bills MD Primary Care Provider [phone] Encounter Details Date Type Department Care Team (Latest Contact Info) Description 07/29/2001 Outpatient Historical [facility] Rehan Fernando MD [address], [place] [id number] MALE GENITAL DIS NOS (Primary Dx) Social History Tobacco Use Types Packs/Day Years Used Date Smoking Tobacco: Never Assessed Sex and Gender Information Value Date Recorded Sex Assigned at Not on file 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
--- OUTSIDE RECORDS SUMMARY | 2024-12-23 17:07 | XMS_ITS | Encounter Summary ---
Author Organization [facility] Address [address] [place] [address] Care Team Providers Care Mail Order Sorter Name Role Phone Ananth Bills MD Primary Care Provider [phone] Encounter Details Date Type Department Care Team (Latest Contact Info) Description 02/26/2006 Outpatient Historical [facility] [address] 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
--- OUTSIDE RECORDS SUMMARY | 2024-12-23 17:07 | XMS_ITS | Patient Health Record ---
Author Organization [facility] Address [address] [facility] [place] [address] Care Team Providers Care Department Store Manager Name Role Phone Harvey ESCOEBDO, Alec Primary Care Provider Unavailab DOROTA Bella Unavailable [phone] Allergies Allergen (clinical drug ingredient) Drug/Non Drug Allergy documented on EMR Reaction Allergy Type Onset Date Status pregabalin Lyrica Unknown Drug Allergy Active oxycodone OxyCONTIN Unknown Drug Allergy Active Pineapple Extract Unknown Drug Allergy Active Reason For Referral No Information Medications Medication SIG (Take, Route, Frequency, Duration) Notes Start Date End Date Status Tamsulosin HCl 0.4 MG 1 capsule Orally O nce a day in the evening; Duration: 90 days Active Phenazopyridine HCl 100 MG 2 tablets aft er meals Orally Three times a day Active ALPRAZolam 0.5 MG 1 tablet Orally daily As needed Active cloNIDine HCl 0.1 MG 1 tablet Orally Onc e a day Active tiZANidine HCl 4 MG 1 tablet at bedtime as needed Orally Once a day Active DULoxetine HCl 30 MG 1 capsule Orally On ce a day Active Furosemide 40 MG 1 tablet Orally Once a day Active Morphine Sulfate ER 15 MG 1 tablet Orall y every 12 hrs Active Naproxen 500 MG 1 tablet with food o r milk as needed Orally every 12 hrs Active Nitroglycerin 0.4 MG as directed Sublingual Active Pantoprazole Sodium 40 MG 1 tablet Orall y Once a day Active Albuterol Sulfate HFA 108 (9 0 Base) MCG/ACT 1 puff as needed Inhalation every 4 hrs Active Melatonin 5 MG 1 capsule at bedtime as needed Orally Once a day Active Gabapentin 300 MG 1 capsule Orally Onc e a day Active Losartan Potassium 50 MG 1 tablet Orally Once a day Active Social History Tobacco Use: Social History Observation Description Date Details (start date - stop date) Current Smoker NA - NA Tobacco Control (Standard) Question Answer Notes Tobacco use: Current every day smoker Problems Problem Type SNOMED Code ICD Code Onset Dates Problem Status W/U Status Risk Notes Problem Urinary hesitancy (8924454) Urinary hesitancy (R39.11) Active confirmed Problem Walking disability (328791002) Impaired ambulation (R26.2) Active confirmed Problem Benign prostatic hypertrophy with outflow obstruction (600833998) BPH loc w urin obs/LUTS (N40.1) Active confirmed Plan Of Treatment Pending Test Test Name Order Date KUB, X-Ray: Abdomen, Kidney, Urete r, bladder 10/16/2023 Renal Ultrasound [id number] [id number] 10/16/2023 PSA, TOTAL (5363) 10/16/2023 CULTURE, URINE, ROUTINE (395) 10/16/2023 Insurance Providers Payer Name Payer Address Payer Phone Subscriber Number Group Number Insured Name Patient Relationship to Insured Coverage Start Date Coverage End Date [employer] [place] [address] [place], [place] [id number] [phone] [id number] Ben Nielsen Self - patient is the insured Medical (General) History Medical History History ICD Code anxiety DDD depession high cholesterol HTN hyperthyroidism back pain ED kidney stones burning urination urinary retention testicular pain decreased libido Surgical History Surgery Date(Month/Year) appendectomy 1987 hernia repair 2014 gallbladder 2012 5 neck surgeries 2017 Hospitalization History Reason Date(Month/Year) pt states will discuss with doctor
[2024-12-23] MEDS: HYDROmorphone 0.5 MG/0.5 ML INJ 1 MG IVP ×3 (17:14→19:20)
--- NOTE | 2024-12-23 17:14 | PC.NURSE ---
pt educated on need for UA, provided with urine cup
[2024-12-23 17:41] LABS: Hematocrit 45.7 % (37-53); Hemoglobin 15.40 g/dL (11.27-16.99); Mean Corpuscular HGB Conc 33.7 g/dL (30-55); Mean Corpuscular Hemoglobin 29.7 pg (27-33); Mean Corpuscular Volume 88.2 fl (82-101); Nucleated Red Blood Cells % 0 %; Platelet Count 328 10^3/cmm (157-399); Red Blood Count 5.18 10^6/uL (3.85-5.65); White Blood Count 15.74 10^3/uL (3.29-11.43)
[2024-12-23 17:51] LABS: Glucose Urine UA Negative (Normal); Nitrate Urine Negative (Negative); Specific Gravity, Urine 1.012 (1.005-1.030)
[2024-12-23 17:56] LABS: Add Urine Microscopic? YES
[2024-12-23 17:59] LABS: Alanine Aminotransferase 17 U/L (0-41); Albumin Level 4.3 g/dL (3.5-5.2); Alkaline Phosphatase 80 U/L (40-130); Anion Gap 17.8 (5-19); Aspartate Amino Transferase 15 U/L (0-40); Blood Urea Nitrogen 10 mg/dL (6-20); Calcium 8.9 mg/dL (8.5-10.5); Carbon Dioxide 22 mmol/L (22-29); Chloride 100 mmol/L (98-107); Creatinine Clr Calc Pharmacy 137.4596; Globulin 3.6 g/dL (1.3-4.6); Glucose 150 mg/dL (65-115); Lipase 14 U/L (13-60); Osmolality Calculated 282 mOsm/kg (285-295); Potassium 4.8 mmol/L (3.5-5.1); Sodium 135 mmol/L (136-145); Total Protein 7.9 g/dL (6.6-8.7)
[2024-12-23 18:00] LABS: Lactic Sepsis W/Reflex 2.1 mmol/L (0.5-2.2)
--- NOTE | 2024-12-23 18:16 | W.ED.ABDPA2 ---
HPI - Abdominal Pain General: Chief Complaint: Abdominal Pain Stated Complaint: AB PAIN History of Present Illness: 59-yo M with Hx of anxiety, chronic pain syndrome, chronic prescription opioid use, and prior stomach bleeds requiring transfusion presents with severe, diffuse abdominal pain and marked bloating. Pain is excruciating, worse to light touch, not primarily lateral. Reports limited bowel movements x3 days despite extensive bowel regimens: lactulose (liquid) three times daily, MiraLAX three times daily, stimulant laxatives, enemas, and three bottles of magnesium citrate with minimal effect. Recent stools described as very large-caliber, short segments; attempts this morning produced only a small, thick piece. Baseline pain is 7; currently higher. Feels bloated ?everywhere? and legs as well. Denies firm or hard abdomen per discussion. Provider noted bowel sounds present (?burbling?). Pt agreeable to imaging and analgesia. Related Data Home Medications ?Medication ?Instructions ?Recorded ?Confirmed nitroglycerin 0.4 mg sublingual 0.4 mg sublingual Q5M PRN Chest 07/14/23 12/04/24 tablet (Nitrostat) Pain losartan 50 mg tablet 50 mg PO DAILY 05/27/24 12/04/24 melatonin 10 mg tablet 10 mg PO BEDTIME 06/03/24 12/04/24 bisacodyl 5 mg tablet 15 mg PO DAILY PRN constipation 09/30/24 12/04/24 morphine 15 mg immediate release 15 mg PO BID 09/30/24 12/04/24 tablet morphine 15 mg tablet,extended 15 mg PO BID 09/30/24 12/04/24 release Previous Rx's ?Medication ?Instructions ?Recorded CPAP supplies #1 ea 11/29/20 blood sugar diagnostic (OneTouch #100 ea 01/26/21 Ultra Test strips) blood-glucose meter (OneTouch #1 ea 01/26/21 Ultra2 Meter) back brace (Back Support S/M) #1 ea 05/15/21 back brace #1 ea 05/30/21 AUTO - TITRATING CPAP 6-10CM #1 ea 01/17/23 rollaid walker with chair #1 ea 09/11/23 tamsulosin 0.4 mg capsule 0.4 mg PO DAILY #30 caps 10/04/23 ondansetron 4 mg disintegrating 4 mg PO Q8H PRN nausea and 01/31/24 tablet vomiting #10 tabs amlodipine 2.5 mg tablet 2.5 mg PO DAILY #90 tabs 07/14/24 pantoprazole 40 mg tablet,delayed 40 mg PO DAILY #90 tabs 07/22/24 release naloxone 4 mg/actuation nasal 4 mg intranasal Q2M PRN opioid 08/11/24 spray (Narcan) overdose #2 ea clonidine HCl 0.1 mg tablet 0.1 mg PO BID PRN agitation #60 09/30/24 tabs tizanidine 4 mg tablet 8 mg (2 x 4 mg) PO TID muscle 10/22/24 spasticity 30 days #180 tabs quetiapine 50 mg tablet (Seroquel) 150 mg (3 x 50 mg) PO BEDTIME PRN 11/12/24 insomnia #90 tabs triamcinolone acetonide 0.1 % 1 applic topical BID PRN psoriasis 11/26/24 topical ointment 2 weeks #30 grams duloxetine 40 mg capsule,delayed 40 mg PO .morning #30 caps 12/02/24 release amoxicillin 500 mg tablet 500 mg PO BID #14 tabs 12/04/24 Allergies Allergy/AdvReac Type Severity Reaction Status Date / Time pregabalin (From Lyrica) Allergy Intermediate ADR-Halluci Verified 12/04/24 15:14 nating pineapple Allergy Unknown ALGY-Anaphy Verified 12/04/24 15:14 laxis oxycodone (From OxyContin) Allergy ADR-Gastrointestinal Verified 12/04/24 15:14 Upset levothyroxine sodium (From AdvReac Severe ADR-Halluci Verified 12/04/24 15:14 Euthyrox) nating hydrochlorothiazide AdvReac ADR-Agitate Verified 12/04/24 15:14 d oxycotin Allergy Severe ADR-Confusi Uncoded 12/04/24 15:14 on [facility]: Medical History (Updated 12/23/24 @ 20:06 by Sea Lucio DO) Generalized anxiety disorder 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 Acute upper gastrointestinal bleeding Liver mass Leukocytosis Hyponatremia Chronic prescription opiate use Intractable nausea and vomiting Near syncope Nicotine dependence, chewing tobacco, uncomplicated Atherosclerosis of coronary artery Chest pain Psychiatric care Abnormal stress test COVID-19 History of colon polyps History of CVA (cerebrovascular accident) 2005 --left-sided weakness Nephrolithiasis Acute bronchitis Congestive heart failure Chronic low back pain Dizziness Major depressive disorder, recurrent, moderate Chronic neck pain History of [place] (myocardial infarction) History of TIA (transient ischemic attack) Left ventricular hypertrophy Hypertriglyceridemia MRSA (methicillin resistant Staphylococcus aureus) Bright red rectal bleeding Internal hemorrhoids Diastolic heart failure Hypothyroidism Essential (primary) hypertension Surgical History H/O esophagogastroduodenoscopy (05/10/20) History of colonoscopy 12/2014 --small tubular adenoma, limited diverticulosis 02/2018 --small internal hemorrhoids S/P appendectomy S/P cholecystectomy S/P hernia repair ventral with mesh x 2 H/O neck surgery x 5 ( some of those were for a postop MRSA infection ) Family History Mother Congestive heart failure (CHF) Thyroid disease Sister Thyroid disease Father Atrial fibrillation Brother Heart disease HX STENTS Other CAD (coronary artery disease) Diabetes Social History Smoking and tobacco/nicotine status: former use of tobacco/nicotine Second hand smoke exposure: Yes Alcohol intake: never Substance/Drug Use: never Lives independently: Yes Household members: spouse Marital status: Current occupational status: disabled Do you think of yourself as: Straight/Heterosexual Current gender identity: Male Physical Exam Const: COMMON NORMALS: no acute distress, patient oriented x3 and alert HENMT: COMMON NORMALS: normocephalic and atraumatic HEAD & SCALP: normocephalic and atraumatic Eye: COMMON NORMALS: Equal, round and reactive pupils present, EOMs intact bilaterally and no scleral icterus PUPIL: Yes Equal, round and reactive pupils present Resp: COMMON NORMALS: normal respiratory effort and No retractions Cardio: COMMON NORMALS: regular rate, regular rhythm and No murmurs present (Cardio) RATE: regular rate RHYTHM: regular rhythm GI: OTHER: Diffusely mildly tender with no focality; diminished bowel sounds; somewhat protuberant but not firm. Neuro: COMMON NORMALS: patient oriented x3 SENSORIUM/ORIENTATION: Yes alert Skin: COMMON NORMALS: no rashes or lesions noted GENERAL SKIN EXAM: no rashes or lesions noted Course Vital Signs: Vital signs: Vital Signs Temperature 98.7 F 10/15/25 18:19 Pulse Rate 70 12/23/24 20:07 Respiratory Rate 18 12/23/24 16:58 Blood Pressure 168/100 12/23/24 20:07 Pulse Oximetry 96 12/23/24 20:07 Oxygen Delivery Me thod Room Air 12/23/24 20:07 MDM - Abdominal Pain Medical Decision Making 59-yo M with chronic pain and chronic opioid use presents with severe diffuse abdominal pain, bloating, and constipation refractory to multiple laxatives; Hx of gastrointestinal bleeds requiring transfusion. CT scan shows small bowel obstruction without evidence of volvulus or other surgical etiology. Vital signs remained stable. White blood cell count is 15,000. patient will receive an NG tube and have it hooked to low intermittent suction. Pain is much better with Dilaudid. I spoke with on-call surgery Dr. Zamora who recommends patient be admitted to the hospitalist service with surgical consultation. I spoke with Dr. Smith who graciously accepts the patient for admission. Lab Data 12/23/24 17:27 12/23/24 17:27 Labs/Radiology: Radiology Impressions Abdomen/Pelvis CT 12/23/24 17:05 IMPRESSION: Small bowel obstruction with multiple dilated fluid and air-filled loops of small bowel with a transition point in the mid abdomen posteriorly (series 6, image 44) with small bowel feces sign at this location. No mass identified at the transition point. ADDENDUM: 12/23/241930 THIS REPORT CONTAINS FINDINGS THAT MAY BE CRITICAL TO PATIENT CARE. The findings were verbally communicated via telephone conference with SEA Simth at 7:31 PM T on 12/23/2024. The findings were acknowledged and understood. Laboratory Results WBC 15.74 10^3/uL (3.29-11.43) H 12/23/24 17: RBC 5.18 10^6/uL (3.85-5.65) 12/23/24 17: Hgb 15.40 g/dL (11.27-16.99) 12/23/24 17: Hct 45.7 % (37-53) 12/23/24 17: MCV 88.2 fl (82-101) 12/23/24 17: MCH 29.7 pg (27-33) 12/23/24 17: MCHC 33.7 g/dL (30-55) 12/23/24 17: RDW 13.2 % (12.1-15.1) 12/23/24 17: Plt Count 328 10^3/cmm (157-399) 12/23/24 17: MPV 10.2 fL (7.4-10.4) 12/23/24 17: Neut % (Auto) 80.5 % 12/23/24 17: Lymph % (Auto) 10.7 % 12/23/24 17:27 [place] % (Auto) 6.5 % 12/23/24 17: Eos % (Auto) 1.3 % 12/23/24 17: Baso % (Auto) 0.4 % 12/23/24 17: Neut # (Auto) 12.67 10^3/uL (1.8-7.7) H 12/23/24 17: Lymph # (Auto) 1.7 10^3/uL (0.8-4.8) 12/23/24 17: [place] # (Auto) 1.0 10^3/uL (0.2-0.9) H 12/23/24 17: Eos # (Auto) 0.2 10^3/uL (0.0-0.8) 12/23/24 17: Baso # (Auto) 0.1 10^3/uL (0.0-0.1) 12/23/24 17: Nucleated RBC % (auto) 0 % 12/23/24: Nucleated RBCs # 0.0 /100WBC 12/23/24 17: Sodium 135 mmol/L (136-145) L 12/23/24 17: Potassium 4.8 mmol/L (3.5-5.1) 12/23/24 17: Chloride 100 mmol/L (98-107) 12/23/24 17: Carbon Dioxide 22 mmol/L (22-29) 12/23/24 17:27 Anion Gap 17.8 (5-19) 12/23/24 17:27 BUN 10 mg/dL (6-20) 12/23/24 17: Creatinine 0.7 mg/dL (0.7-1.2) 12/23/24 17:27 GFR Calculation 115.4 mL/min (90-130) 12/23/24 17: Glucose 150 mg/dL (65-115) H 12/23/24 17:27 Calculated Osmolality 282 mOsm/kg (285-295) L 12/23/24 17: Lactic Acid 2.1 mmol/L (0.5-2.2) 12/23/24 17:27 Calcium 8.9 mg/dL (8.5-10.5) 12/23/24 17: Total Bilirubin 0.3 mg/dL (0.15-1.2) 12/23/24 17:27 AST 15 U/L (0-40) 12/23/24 17: ALT 17 U/L (0-41) 12/23/24 17: Alkaline Phosphatase 80 U/L (40-130) 12/23/24 17:27 Total Protein 7.9 g/dL (6.6-8.7) 12/23/24 17: Albumin 4.3 g/dL (3.5-5.2) 12/23/24 17: Globulin 3.6 g/dL (1.3-4.6) 12/23/24 17: Lipase 14 U/L (13-60) 12/23/24 17:27 Urine Color Yellow (Yellow) 12/23/24 17:18 Urine Appearance Clear (CLEAR) 12/23/24 17:18 Urine pH 5.5 (5-7) 12/23/24 17:18 Ur Specific [place] 1.012 (1.005-1.030) 12/23/24 17:18 Urine Protein Negative (Negative) 12/23/24 17:18 Urine Glucose (UA) Negative (Normal) 12/23/24 17:18 Urine Ketones Negative (Negative) 12/23/24 17:18 Urine Blood Negative (Negative) 12/23/24 17:18 Urine Nitrate Negative (Negative) 12/23/24 17:18 Urine Bilirubin Negative (Negative) 12/23/24 17:18 Urine Urobilinogen 0.2 mg/dL (Negative) 12/23/24 17:18 Ur Leukocyte Esterase Negative (Negative) 12/23/24 17:18 Urine RBC 0-2 /hpf (0-2) 12/23/24 17:18 Urine WBC 0-5 /hpf (0-5) 12/23/24 17:18 Ur Squamous Epith Cells 0-5 /hpf (0-5) 12/23/24 17:18 Amorphous Sediment Not Reportable 12/23/24 17:18 Urine Bacteria None seen /hpf (NONE) 12/23/24 17:18 Hyaline Casts 0-4 /lpf H 12/23/24 17:18 All radiology interpretation(s) finalized by discharge Discharge Plan Discharge Patient Disposition: Admitted As Inpatient Clinical Impression: Small bowel obstruction Condition: Stable Coding Level of Care Code ED [employer] for [employer]my [employer]
[2024-12-23] MEDS: iohexol 350 mg/mL 500 mL Btl (per mL) IV (18:41)
[2024-12-23 19:22] LABS: Reflex Lactate Order REFLEX LACTIC ORDERD
[2024-12-23 20:42] LABS: Lactic Acid level (Lactate) 1.7 mmol/L (0.5-2.2)
--- NOTE | 2024-12-23 21:40 | XRR_ITS ---
PROCEDURE INFORMATION: Exam: XR Chest Exam date and time: 12/23/2024 9:55 PM Age: 59 years old Clinical indication: Device placement; Ng tube; Additional info: Ng tube placement TECHNIQUE: Imaging protocol: Radiologic exam of the chest. Views: 1 view. COMPARISON: CR XR chest 1V portable [id number] 06/03/2024 3:11 PM FINDINGS: Tubes, catheters and devices: There is an NG tube which tracks into the stomach and off the field of view. The side-hole is in the distal esophagus. Consider advancing 7 cm for more optimal positioning. Lungs: Unremarkable. No consolidation. Pleural spaces: Unremarkable. No pleural effusion. No pneumothorax. Heart/Mediastinum: See Tubes, catheters and devices finding. Bones/joints: Unremarkable. XR/XR chest 1V portable [id number] IMPRESSION: There is an NG tube which tracks into the stomach and off the field of view. The side-hole is in the distal esophagus. Consider advancing 7 cm for more optimal positioning.
[2024-12-23] MEDS: HYDROmorphone 0.5 MG/0.5 ML INJ 2 MG IVP (22:20)
--- NOTE | 2024-12-23 22:33 | P.HP_ITS ---
Providers/Chief Complaint 2 Admitting Physician: Farrah Smith MD Primary Care Provider: Alec Gabriel MD Chief Complaint: AB PAIN History of Present Illness as per the retrospect chart review and the patient: Ben Nielsen is a 59 year old male with past medical history of chronic pain syndrome secondary to multiple spinal surgery after a traumatic fall 9 to 10 years ago. 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 And further complication of the wounds of the surgery with MRSA infection. The patient also underwent multiple abdominal surgeries with history of ruptured appendix and s/p appendectomy, s/p cholecystectomy s/p hernia repair and has been on high dose of opioids with further frequent ER visits for bowel obstruction. The patient was doing well until 2 to 3 days when he noticed with his home regimen of multiple laxatives the patient was unable to pass bowels. However with straining he was able to pass hard stools 1-2 times. There was no fever, chills, any diarrhea before this episode. He also started to have abdominal distention and pain with further complicating into nausea and vomiting. The patient feels bloated and GERD-like symptoms. He did not report any chest pain chest pressure diaphoresis or any cardiac symptoms. There was no orthopnea or PND. Patient has chronic lower leg edema but did not report any increase in swelling. Rest of the review of system was unremarkable Of note: The patient is following with the pain doctor and he mentioned his pain 1 year or so he has been switched from Dilaudid to morphine. Since the use of morphine his bowel motions has decreased which never happened with Dilaudid. Review of Systems 2 General: Reports: 10 or more systems reviewed and unremarkable except in HPI and below Medications/Allergies Home Medications ?Medication ?Instructions ?Recorded ?Confirmed ?Last Taken ?Type CPAP supplies #1 ea 11/29/20 12/23/2405/10 Rx back brace (Back Support S/M) #1 ea 05/15/21 12/23/24 06/01/24 Rx back brace #1 ea 05/30/21 12/23/2405/10 Rx AUTO - TITRATING CPAP 6-10CM #1 ea 01/17/23 12/23/24 0 06/01/24 Rx nitroglycerin 0.4 mg sublingual 0.4 mg sublingual Q5M PRN Chest 07/14/23 12/23/24 12/23/24 08:00 History tablet (Nitrostat) Pain rollaid walker with chair #1 ea 09/11/23 12/23/24 0307/03 Rx tamsulosin 0.4 mg capsule 0.4 mg PO DAILY #30 caps 12/23/24 12/23/24 08:00 Rx ondansetron 4 mg disintegrating 4 mg PO Q8H PRN nausea and 01/31/24 12/23/24 12/23/24 08:00 Rx tablet vomiting #10 tabs losartan 50 mg tablet 50 mg PO DAILY 05/27/2412/0912/23/24 08:00 History melatonin 10 mg tablet 10 mg PO BEDTIME 06/03/2412/23/24 08:00 History amlodipine 2.5 mg tablet 2.5 mg PO DAILY #90 tabs 09/0212/23/24 12/23/24 08:00 Rx pantoprazole 40 mg tablet,delayed 40 mg PO DAILY #90 t abs 07/22/24 12/23/24 12/23/24 08:00 Rx release naloxone 4 mg/actuation nasal 4 mg intranasal Q2M PRN opioid 08/11/24 12/23/24 12/23/24 08:00 Rx spray (Narcan) overdose #2 ea bisacodyl 5 mg tablet 15 mg PO DAILY PRN constipat ion 09/30/24 12/23/24 12/23/24 08:00 History clonidine HCl 0.1 mg tablet 0.1 mg PO BID PRN agitatio n #60 09/30/24 12/23/24 12/23/24 08:00 Rx tabs morphine 15 mg immediate release 15 mg PO BID 09/30/24 12/23/24 12/23/24 08:00 History tablet morphine 15 mg tablet,extended 15 mg PO BID 09/30/24 1 12/23/24 08:00 History release tizanidine 4 mg tablet 8 mg (2 x 4 mg) PO TID muscl e 10/22/24 12/23/24 12/23/24 08:00 Rx spasticity 30 days #180 tabs triamcinolone acetonide 0.1 % 1 applic topical BID PRN psoriasis 11/26/24 12/23/24 12/23/24 08:00 Rx topical ointment 2 weeks #30 grams duloxetine 40 mg capsule,delayed 40 mg PO .morning #30 caps 12/02/24 12/23/24 12/23/24 08:00 Rx release lactulose 10 gram/15 mL oral 15 ml PO TID PRN Constipa tion 12/23/24 12/23/24 12/23/24 08:00 History solution quetiapine 50 mg tablet (Seroquel) 50 - 150 mg PO BEDT MADELINE PRN insomnia 12/23/24 12/23/24 12/23/24 08:00 History Allergies Allergy/AdvReac Type Severity Reaction Status Date / Time pregabalin (From Lyrica) Allergy Intermediate ADR-Halluci Verified 12/04/24 15:14 nating pineapple Allergy Unknown ALGY-Anaphy Verified 12/04/24 15:14 laxis oxycodone (From OxyContin) Allergy ADR-Gastrointestinal Verified 12/04/24 15:14 Upset levothyroxine sodium (From AdvReac Severe ADR-Halluci Verified 12/04/24 15:14 Euthyrox) nating hydrochlorothiazide AdvReac ADR-Agitate Verified 12/04/24 15:14 d oxycotin Allergy Severe ADR-Confusi Uncoded 12/04/24 15:14 on PFSH Acute 2 PFSH: Medical History (Updated 12/23/24 @ 20:06 by Tim Lucio DO) Generalized anxiety disorder 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 Acute upper gastrointestinal bleeding Liver mass Leukocytosis Hyponatremia Chronic prescription opiate use Intractable nausea and vomiting Near syncope Nicotine dependence, chewing tobacco, uncomplicated Atherosclerosis of coronary artery Chest pain Psychiatric care Abnormal stress test COVID-19 History of colon polyps History of CVA (cerebrovascular accident) 2005 --left-sided weakness Nephrolithiasis Acute bronchitis Congestive heart failure Chronic low back pain Dizziness Major depressive disorder, recurrent, moderate Chronic neck pain History of [place] (myocardial infarction) History of TIA (transient ischemic attack) Left ventricular hypertrophy Hypertriglyceridemia MRSA (methicillin resistant Staphylococcus aureus) Bright red rectal bleeding Internal hemorrhoids Diastolic heart failure Hypothyroidism Essential (primary) hypertension Surgical History H/O esophagogastroduodenoscopy (05/10/20) History of colonoscopy 12/2014 --small tubular adenoma, limited diverticulosis 02/2018 --small internal hemorrhoids S/P appendectomy S/P cholecystectomy S/P hernia repair ventral with mesh x 2 H/O neck surgery x 5 ( some of those were for a postop MRSA infection ) Family History Mother Congestive heart failure (CHF) Thyroid disease Sister Thyroid disease Father Atrial fibrillation Brother Heart disease HX STENTS Other CAD (coronary artery disease) Diabetes Social History Smoking and tobacco/nicotine status: former use of tobacco/nicotine Second hand smoke exposure: Yes Alcohol intake: never Substance/Drug Use: never Lives independently: Yes Household members: spouse Marital status: Current occupational status: disabled Do you think of yourself as: Straight/Heterosexual Current gender identity: Male Vitals/I&O/Wt Last Vital Signs Temp 97.6 F 12/23/24 22:21 Pulse 80 12/23/24 22:21 Resp 16 12/23/24 22:21 BP 196/100 12/23/24 22:21 Pulse Ox 94 12/23/24 22:21 O2 Del Method Room Air 12/23/24 21:27 12/23/24 12/23/24 12/23/24 06:59 14:59 22:59 Intake Total 1000 / 1000 Balance 1000 / 1000 Weight last 48 hrs Weight 108.8 kg Weight 104.326 kg Physical Exam 2 Narrative: General: Alert and oriented, lying with mild distress due to neck pain and abdominal pain. Able to complete sentences HEENT: Normocephalic, atraumatic, grossly unremarkable exam Cardio: normal rate rhythm, normal S1-S2 without any murmurs, rubs, or gallops and JVD normal Respiratory: normal vascular breathing on auscultation without any wheezes, stridor, rhonchi GI: Distended abdomen, tender with superficial palpation in all quadrants. Unable to perform deep palpation due to tenderness and rigidity. Bowel sounds were heard but not exaggerated on auscultation. Neuro: intact cranial nerves motor and sensory and cerebellar/coordination function without any focal neurological deficit Behavior: Appropriate and cooperative Extremities: Adequate palpable pulses, trace pedal edema. Data 12/23/24 17:27 12/23/24 17:27 A&P Assessment and plan 1. Small bowel obstruction: - Previous history of multiple surgeries and chronic pain syndrome on opiates leading to intermittent subacute/partial small bowel obstruction. -Patient having leukocytosis, to send for blood cultures, MRSA swab since patient has previous history of MRSA infection after spinal surgery - Zosyn and bank as per pharmacist dosing adjustment to continue - Surgery on board, on NGT decompression - Monitor intake and output - Adequate analgesia to continue 2. Essential (primary) hypertension: - Patient having uncontrolled BP secondary to pain and distress as well -Continue home medications and to clamp the NGT for 30 minutes after administration of the medications as per surgery 3. Generalized anxiety disorder: - Continue home medication with quetiapine - Continue melatonin as needed in the night 4. Lumbar stenosis with neurogenic claudication: - Patient has been on Dilaudid approximately 1 year ago and was doing better and later on switched to extended release morphine by the pain doctor, which has led to his decreased bowel motions and also uncontrolled chronic pain syndrome - Dilaudid to continue as scheduled and also morphine extended release to control his chronic pain which runs at 7 out of 10 at baseline 5. Chronic pain syndrome: As mentioned above 6. Dyslipidemia: Stable 7. Long-term use of high-risk medication: Counseling and adequate education to be provided for medication use and compliance PDMP PDMP Reviewed: Not Reviewed Attestations 2 Medical Necessity Statement*: Ben Nielsen's hospital stay will require greater than 2 midnights for subacute bowel obstruction, intra-abdominal infection? Time Spent in Patient Care: 16 - 35 minutes (>than 50% of time sp ent in counselling and/or direct pt care on unit) . Other Attestations: Patient condition has been discussed at length with the patient/family, I have independently reviewed the chart labs imaging/diagnostics/EKG. the goals of care and code status with the patient/family/NOK/legal public utilities sales representative, and documented accordingly. The patient/family has been informed about the current condition and further plan of care. Agreed with the plan of care and understood without any language barrier. Every effort was made to ensure accuracy of hook and eye attacher. Any obvious errors or omissions should be clarified with the author of the document. Coding Level of Care Code Acute Code for [facility] Fwd Diagnoses Small bowel obstruction K56.609 Essential (primary) hypertension I10 Generalized anxiety disorder F41.1 Lumbar stenosis with neurogenic claudication M48.062 Chronic pain syndrome G89.4 Dyslipidemia E78.5 Long-term use of high-risk medication Z79.899
[2024-12-23] MEDS: pantoprazole 40 mg SDV IVP (23:05)
[2024-12-23] MEDS: alum-mag-hydroxide-sime 30 mL UDC 15 ML NG-TUBE (23:12)
[2024-12-23 23:16] LABS: Thyroid Stimulating Hormone 5.60 uIU/mL (0.27-4.20)
[2024-12-23] MEDS: heparin 5,000 unit/mL INJ 1 mL 5000 UNIT SUBCUT (23:17)
[2024-12-23] MEDS: MELATONIN 3 MG TABLET 9 MG PO (23:56)
[2024-12-23] MEDS: HYDROmorphone tab 2 MG TABLET 4 MG PO (23:59)
[2024-12-24] VITALS (11 sets, daily range): BP systolic 106–190; BP diastolic 67–114; PULSE 66–96; RESP 16–18; TEMP 36.4–36.9; O2SAT 93–96
[2024-12-24] MEDS: piperacillin-tazobactam 3.375 GM in sodium chloride 0.9% (plus) 50 ML IV ×4 (00:34→23:55)
[2024-12-24] MEDS: vancomycin 1,750 MG/350 ML PIGGYBACK 175 MG IV (01:12)
[2024-12-24 02:16] LABS: MRSA PCR OZH (swab) NOT DETECTED (Negative)
[2024-12-24] MEDS: morphine 4 mg/mL SDV 1 mL 2 MG IVP (03:26)
[2024-12-24] MEDS: alum-mag-hydroxide-sime 30 mL UDC 15 ML NG-TUBE (04:50)
[2024-12-24] MEDS: HYDROmorphone tab 2 MG TABLET 4 MG PO (04:53)
[2024-12-24] MEDS: ondansetron 2 mg/ML SDV 2 mL 4 MG IVP (05:13)
[2024-12-24 05:36] LABS: Hematocrit 51.0 % (37-53); Hemoglobin 17.10 g/dL (11.27-16.99); Mean Corpuscular HGB Conc 33.5 g/dL (30-55); Mean Corpuscular Hemoglobin 30.1 pg (27-33); Mean Corpuscular Volume 89.6 fl (82-101); Nucleated Red Blood Cells % 0 %; Platelet Count 333 10^3/cmm (157-399); Red Blood Count 5.69 10^6/uL (3.85-5.65); White Blood Count 20.57 10^3/uL (3.29-11.43)
[2024-12-24 05:58] LABS: Alanine Aminotransferase 18 U/L (0-41); Albumin Level 4.5 g/dL (3.5-5.2); Alkaline Phosphatase 89 U/L (40-130); Anion Gap 21.3 (5-19); Aspartate Amino Transferase 19 U/L (0-40); Blood Urea Nitrogen 9 mg/dL (6-20); Calcium 9.3 mg/dL (8.5-10.5); Carbon Dioxide 23 mmol/L (22-29); Chloride 95 mmol/L (98-107); Creatinine Clr Calc Pharmacy 140.3357; Globulin 3.6 g/dL (1.3-4.6); Glucose 153 mg/dL (65-115); Osmolality Calculated 282 mOsm/kg (285-295); Potassium 4.3 mmol/L (3.5-5.1); Sodium 135 mmol/L (136-145); Total Protein 8.1 g/dL (6.6-8.7)
--- NOTE | 2024-12-24 06:50 | PM.CONSULT ---
Providers/Reason For Consult Consulting Physician/Specialty*: General Surgery Reason for Consult*: Bowel obstruction Attending Physician: Farrah Smith MD Primary Care Provider: Alec Gabriel MD History of Present Illness History of Present Illness Ben Nielsen is a 59 year old male with multiple medical comorbidities and who is on chronic long-term opioid use. He presents with abdominal pain and distention and obstipation for the last 3 to 4 days. No nausea or vomiting. CT scan done in the ER showed evidence of a partial small bowel obstruction with transition point of the mid jejunum in the area where some fecalization can be seen in the small bowel. Per patient report he has had issues with bowel movements since he was transition to morphine from Dilaudid by pain management. NG tube decompression was initiated and a total of 1.6 L of fluid has been already acquired from the abdomen. Per patient report he has been trying multiple different types of laxatives to try to have a bowel movement without success. Review of Systems General: Reports: 10 or more systems reviewed and unremarkable except in HPI and below Medications/Allergies Home Medications ?Medication ?Instructions ?Recorded ?Confirmed ?Last Taken ?Type CPAP supplies #1 ea 11/29/20 12/23/24 06/01/24 Rx back brace (Back Support S/M) #1 ea 05/15/21 12/23/24 06/01/24 Rx back brace #1 ea 05/30/21 12/23/24 06/01/24 Rx AUTO - TITRATING CPAP 6-10CM #1 ea 01/17/23 12/23/24 06/01/24 Rx nitroglycerin 0.4 mg sublingual 0.4 mg sublingual Q5M PRN Chest 07/14/23 12/23/24 12/23/24 08:00 History tablet (Nitrostat) Pain rollaid walker with chair #1 ea 09/11/23 12/23/24 06/01/24 Rx tamsulosin 0.4 mg capsule 0.4 mg PO DAILY #30 caps 10/04/23 12/23/24 12/23/24 08:00 Rx ondansetron 4 mg disintegrating 4 mg PO Q8H PRN nausea and 01/31/24 12/23/24 12/23/24 08:00 Rx tablet vomiting #10 tabs losartan 50 mg tablet 50 mg PO DAILY 0312/23/24 12/23/24 08:00 History melatonin 10 mg tablet 10 mg PO BEDTIME 06/03/24 12/23/24 12/23/24 08:00 History amlodipine 2.5 mg tablet 2.5 mg PO DAILY #90 tabs 07/14/24 12/23/24 12/23/24 08:00 Rx pantoprazole 40 mg tablet,delayed 40 mg PO DAILY #90 tabs 07/22/24 12/23/24 12/23/24 08:00 Rx release naloxone 4 mg/actuation nasal 4 mg intranasal Q2M PRN opioid 08/11/24 12/23/24 12/23/24 08:00 Rx spray (Narcan) overdose #2 ea bisacodyl 5 mg tablet 15 mg PO DAILY PRN constipation 09/30/24 12/23/24 12/23/24 08:00 History clonidine HCl 0.1 mg tablet 0.1 mg PO BID PRN agitation #60 09/30/24 12/23/24 12/23/24 08:00 Rx tabs morphine 15 mg immediate release 15 mg PO BID 09/30/24 12/23/24 12/23/24 08:00 History tablet morphine 15 mg tablet,extended 15 mg PO BID 09/30/24 12/23/24 12/23/24 08:00 History release tizanidine 4 mg tablet 8 mg (2 x 4 mg) PO TID muscle 10/22/24 12/23/24 12/23/24 08:00 Rx spasticity 30 days #180 tabs triamcinolone acetonide 0.1 % 1 applic topical BID PRN psoriasis 11/26/24 12/23/24 12/23/24 08:00 Rx topical ointment 2 weeks #30 grams duloxetine 40 mg capsule,delayed 40 mg PO .morning #30 caps 12/02/24 12/23/24 12/23/24 08:00 Rx release lactulose 10 gram/15 mL oral 15 ml PO TID PRN Constipation 12/23/24 12/23/24 12/23/24 08:00 History solution quetiapine 50 mg tablet (Seroquel) 50 - 150 mg PO BEDTIME PRN insomnia 12/23/24 12/23/24 12/23/24 08:00 History Allergies Allergy/AdvReac Type Severity Reaction Status Date / Time pregabalin (From Lyrica) Allergy Intermediate ADR-Halluci Verified 12/04/24 15:14 nating pineapple Allergy Unknown ALGY-Anaphy Verified 12/04/24 15:14 laxis oxycodone (From OxyContin) Allergy ADR-Gastrointestinal Verified 12/04/24 15:14 Upset levothyroxine sodium (From AdvReac Severe ADR-Halluci Verified 12/04/24 15:14 Euthyrox) nating hydrochlorothiazide AdvReac ADR-Agitate Verified 12/04/24 15:14 d oxycotin Allergy Severe ADR-Confusi Uncoded 12/04/24 15:14 on Current Medications Generic Name Dose Route Start Last Admin Trade Name Freq PRN Reason Stop Dose Admin Al Hydrox/Mg Hydrox/Simethicone 15 ml 12/23/24 22:30 12/24/24 04:50 Vstu-Cmn-Cfajjvgah-Jose Manuel 30 Ml Udc NG-TUBE 15 ml Q6H ABBIE Administration Amlodipine Besylate 2.5 mg 12/24/24 05:00 12/24/24 04:51 Amlodipine 5 Mg Tablet NG-TUBE 2.5 mg DAILY ABBIE Administration Clonidine HCl 0.1 mg 12/23/24 22:24 12/23/24 23:56 Clonidine 0.1 Mg Tablet NG-TUBE 0.1 mg BID PRN Administration AGITATION Duloxetine HCl 40 mg 12/24/24 05:00 12/24/24 04:51 Duloxetine 20 Mg Capsule NG-TUBE 40 mg DAILY ABBIE Administration Heparin Sodium (Porcine) 5,000 unit 12/23/24 22:30 12/23/24 23:17 Heparin 5,000 Unit/Ml Inj 1 Ml SUBCUT 5,000 unit Q12H ABBIE Administration Hydromorphone HCl 4 mg 12/24/24 04:00 12/24/24 04:53 Hydromorphone Tab 2 Mg Tablet PO 4 mg Q4H ABBIE Administration Lactated Ringer's 1,000 mls @ 100 mls/hr 12/23/24 22:30 12/23/24 23:21 Lactated Ringers IV 100 mls/hr .Q10H ABBIE Administration Vancomycin HCl 1,750 mg in 350 mls @ 175 mls/hr 12/24/24 01:00 12/24/24 03:25 Vancocin IV Infused Q12H ABBIE Infusion Losartan Potassium 50 mg 12/24/24 05:00 12/24/24 04:53 Losartan 50 Mg Tablet NG-TUBE 50 mg DAILY ABBIE Administration Melatonin 9 mg 12/23/24 23:19 12/23/24 23:56 Melatonin 3 Mg Tablet PO 9 mg BEDTIME ABBIE Administration Morphine Sulfate 2 mg 12/24/24 03:20 12/24/24 03:26 Morphine 4 Mg/Ml Sdv 1 Ml IVP 2 mg Q4H PRN Administration SEVERE PAIN Ondansetron HCl 4 mg 12/23/24 22:21 12/24/24 05:13 Ondansetron 2 Mg/Ml Sdv 2 Ml IVP 4 mg Q8H PRN Administration vomiting, or N/V if npo Pantoprazole Sodium 40 mg 12/23/24 22:30 12/23/24 23:05 Pantoprazole 40 Mg Sdv IVP 40 mg Q24H ABBIE Administration Quetiapine Fumarate 50 mg 12/23/24 22:51 12/23/24 23:07 Quetiapine 25 Mg Tablet PO 50 mg BEDTIME PRN Administration insomnia Tamsulosin HCl 0.4 mg 12/24/24 05:00 12/24/24 04:53 Tamsulosin 0.4 Mg Capsule NG-TUBE 0.4 mg DAILY ABBIE Administration Tizanidine HCl 8 mg 12/24/24 05:00 12/24/24 04:52 Tizanidine 4 Mg Tablet NG-TUBE 8 mg TID ABBIE Administration PFSH Acute PFSH: Medical History (Updated 12/23/24 @ 20:06 by Tim Lucio DO) Generalized anxiety disorder 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 Acute upper gastrointestinal bleeding Liver mass Leukocytosis Hyponatremia Chronic prescription opiate use Intractable nausea and vomiting Near syncope Nicotine dependence, chewing tobacco, uncomplicated Atherosclerosis of coronary artery Chest pain Psychiatric care Abnormal stress test COVID-19 History of colon polyps History of CVA (cerebrovascular accident) 2005 --left-sided weakness Nephrolithiasis Acute bronchitis Congestive heart failure Chronic low back pain Dizziness Major depressive disorder, recurrent, moderate Chronic neck pain History of MT (myocardial infarction) History of TIA (transient ischemic attack) Left ventricular hypertrophy Hypertriglyceridemia MRSA (methicillin resistant Staphylococcus aureus) Bright red rectal bleeding Internal hemorrhoids Diastolic heart failure Hypothyroidism Essential (primary) hypertension Surgical History H/O esophagogastroduodenoscopy (05/10/20) History of colonoscopy 12/2014 --small tubular adenoma, limited diverticulosis 02/2018 --small internal hemorrhoids S/P appendectomy S/P cholecystectomy S/P hernia repair ventral with mesh x 2 H/O neck surgery x 5 ( some of those were for a postop MRSA infection ) Family History Mother Congestive heart failure (CHF) Thyroid disease Sister Thyroid disease Father Atrial fibrillation Brother Heart disease HX STENTS Other CAD (coronary artery disease) Diabetes Social History Smoking and tobacco/nicotine status: former use of tobacco/nicotine Second hand smoke exposure: Yes Alcohol intake: never Substance/Drug Use: never Lives independently: Yes Household members: spouse Marital status: Current occupational status: disabled Do you think of yourself as: Straight/Heterosexual Current gender identity: Male Vitals/I&O/Wt Last Vital Signs Temp 97.6 F 12/24/24 04:00 Pulse 66 12/24/24 04:00 Resp 18 12/24/24 04:53 BP 180/97 12/24/24 04:53 Pulse Ox 93 12/24/24 04:00 O2 Del Method Room Air 12/23/24 21:27 12/23/24 12/23/24 12/24/24 14:59 22:59 06:59 Intake Total 1000 / 1000 400 / 1400 Output Total 2100 / 2100 Balance 1000 / 1000 -1700 / -700 Weight last 48 hrs Weight 231 lb 9 oz Weight 231 lb 9 oz Weight 239 lb 13.807 oz Weight 230 lb Physical Exam GI: OTHER: The abdomen is distended and tender, nonperitoneal sign Data 12/24/24 05:01 12/24/24 05:01 Micro: Microbiology 12/23/24 23:45 Blood Culture - Preliminary Blood SPECIMEN COLLECTED 12/23/24 23:37 Blood Culture - Preliminary Blood SPECIMEN COLLECTED A&P Assessment and plan 1. Small bowel obstruction: Plan: 59-year-old male presenting with partial small bowel obstruction in the setting of chronic opioid use. Noted to have leukocytosis on admission but normal lactate and no evidence of bowel compromise on CT scan. Per my discussion and discussion of medical team with the patient he will likely prefer to avoid any kind of surgical intervention and he has about experience with previous operations. I agree that we can continue nonoperative management at this time although there has been a increase in the white count from yesterday to today. If leukocytosis continues to uptrend or patient vitals or clinical status deteriorates we will have to push for a surgical option in this patient. I discussed this with the patient patient shows understanding agrees, at the moment he is main concern is more related to his chronic pain management and I have explained that medical team will continue to follow-up with him and ensure that his pain is well-controlled. I will continue to evaluate the patient on a twice a day basis. Continue NG tube decompression. Plan for decompression for 24 to 48 hours before we do a Gastrografin trial PDMP PDMP Reviewed: Not Reviewed Coding Level of Care Code Acute Code for Chg Fwd Diagnoses Small bowel obstruction K56.609
--- NOTE | 2024-12-24 06:56 | XR_ITS ---
WS: [id number] XR chest 1V portable [id number] REASON FOR EXAM: verify NG position FINDINGS: The tip of the nasogastric tube is not visualized but is distal to The lungs are somewhat hypoexpanded. The chest is otherwise unchanged compared to 12/23/2024 9:56 a.m. The gastric fundus. XR/XR chest 1V portable [id number] IMPRESSION: Stable chest as above.
[2024-12-24] MEDS: HYDROmorphone 0.5 MG/0.5 ML INJ 2 MG IVP ×3 (11:04→20:13)
[2024-12-24] MEDS: heparin 5,000 unit/mL INJ 1 mL 5000 UNIT SUBCUT ×2 (11:27→22:02)
--- NOTE | 2024-12-24 11:46 | PM.MISC ---
Miscellaneous Note Purpose of Documentation: Update on patient care Note: Patient doing elevated better this afternoon, abdominal pain continues to be stable. He has had about 600 cc of feculent output on the NG tube. There are some bowel sounds but they are more tympanic in nature. Vital signs have remained stable. I discussed again with the patient and family member of the plan the plan is to continue decompression for another 24 to 48 hours with the hopes of being able to resolve obstruction and improve bowel function. In the case of persistent symptoms and negative Gastrografin trial he will have to proceed for surgical intervention. We also had a discussion regarding his abdominal wall as he has history of hernia repair with mesh and has a large mesh in the abdomen I have explained to him that in the case of needing surgery we will have to go through the mesh in order to access the abdomen he shows understanding agrees. Will continue to closely follow-up this patient in case of changes in the vital signs laboratory workup or physical examination we might decide to proceed to the OR sooner
--- NOTE | 2024-12-24 11:57 | PC.NURSE ---
Patient refused MAGAL PlUS medication, due to not wanting it to be inserted into his NG tube at this time
--- NOTE | 2024-12-24 14:18 | PC.NURSE ---
patient refused tizanididne at this time, he asked us to let him rest and did not want anything down his tube
--- NOTE | 2024-12-24 16:24 | PM.PN ---
Subjective Subjective: Complains of inadequate pain control. Medications: Reviewed: Yes Vitals/I&O/Wt Last Vital Signs Temp 98.2 F 12/24/24 11:24 Pulse 70 12/24/24 15:27 Resp 18 12/24/24 15:27 BP 181/97 12/24/24 15:27 Pulse Ox 96 12/24/24 15:27 O2 Del Method Room Air 12/24/24 15:27 12/24/24 12/24/24 12/24/24 06:59 14:59 22:59 Intake Total 400 / 1400 953.333 / 953.333 Output Total 2400 / 2400 450 / 450 Balance -2000 / -1000 503.333 / 503.333 Weight last 48 hrs Weight 105.035 kg Weight 105.035 kg Weight 108.8 kg Weight 104.326 kg Physical Exam Narrative: General: No acute distress, AO x3 HEENT: PERRLA, pupils bilaterally equal and reactive, pallors not present, NGT in place Chest: Normal vesicular breath sounds, no added sounds, equal good air entry bilaterally CVS: S1-S2 regular, no murmurs, no tachycardia, no gallops, no rubs Abdomen: distended, No Bowel sounds Neuro: No focal deficits, no facial deformity, AO x3, power 5/5 in all limbs Data 12/24/24 05:01 12/24/24 05:01 Micro: Microbiology 12/23/24 23:45 Blood Culture - Preliminary Blood SPECIMEN COLLECTED 12/23/24 23:37 Blood Culture - Preliminary Blood SPECIMEN COLLECTED A&P Assessment and plan 1. Small bowel obstruction: - Previous history of multiple surgeries and chronic pain syndrome on opiates leading to intermittent subacute/partial small bowel obstruction. -Patient having leukocytosis, to send for blood cultures, MRSA swab since patient has previous history of MRSA infection after spinal surgery - [employer] and bank as per pharmacist dosing adjustment to continue - Surgery on board, on NGT decompression - Monitor intake and output - Adequate analgesia to continue 2. Essential (primary) hypertension: - Patient having uncontrolled BP secondary to pain and distress as well -Continue home medications and to clamp the NGT for 30 minutes after administration of the medications as per surgery 3. Generalized anxiety disorder: - Continue home medication with quetiapine - Continue melatonin as needed in the night 4. Lumbar stenosis with neurogenic claudication: - Patient has been on Dilaudid approximately 1 year ago and was doing better and later on switched to extended release morphine by the pain doctor, which has led to his decreased bowel motions and also uncontrolled chronic pain syndrome - Dilaudid to continue as scheduled and also morphine extended release to control his chronic pain which runs at 7 out of 10 at baseline 5. Chronic pain syndrome: As mentioned above 6. Dyslipidemia: Stable 7. Long-term use of high-risk medication: Counseling and adequate education to be provided for medication use and compliance Plan: December 24, 2024 Complains of inadequate pain control. Discontinue oral hydromorphone. Changed to Dilaudid 2 mg IV every 4 hours as needed. Patient typically takes 30 mg of oral morphine at home. Will switch hypertension regimen from oral to IV meds. Noted to have feculent vomiting, NGT to suction, questionable effectiveness of oral medications at this time. Appreciate surgical recommendations. Closely monitor with conservative management NGT if no improvement will likely need to proceed to surgery. PDMP PDMP Reviewed: Not Reviewed Attestations Medical Necessity Statement*: SBO, needs NGT to suction, IV fluids, IV antibiotics and pain control. Coding Level of Care Code Acute Code for Chg Fwd Diagnoses Small bowel obstruction K56.609 Essential (primary) hypertension I10 Generalized anxiety disorder F41.1 Lumbar stenosis with neurogenic claudication M48.062 Chronic pain syndrome G89.4 Dyslipidemia E78.5 Long-term use of high-risk medication Z79.899
[2024-12-24] MEDS: acetaminophen 1,000 MG/100 ML PIGGYBACK 400 MG IV (16:59)
[2024-12-24] MEDS: pantoprazole 40 mg SDV IVP (22:06)
[2024-12-25] VITALS: BP 173/99; PULSE 64; RESP 17; TEMP 36.9; O2SAT 94
[2024-12-25] MEDS: HYDROmorphone 0.5 MG/0.5 ML INJ 2 MG IVP ×6 (00:07→21:29)
[2024-12-25] MEDS: acetaminophen 1,000 MG/100 ML PIGGYBACK 100 MG IV (01:26)
[2024-12-25 04:00] VITALS: BP 174/98; PULSE 70; RESP 16; TEMP 36.9; O2SAT 94
[2024-12-25 05:08] LABS: Hematocrit 46.1 % (37-53); Hemoglobin 15.10 g/dL (11.27-16.99); Mean Corpuscular HGB Conc 32.8 g/dL (30-55); Mean Corpuscular Hemoglobin 29.4 pg (27-33); Mean Corpuscular Volume 89.9 fl (82-101); Nucleated Red Blood Cells % 0 %; Platelet Count 296 10^3/cmm (157-399); Red Blood Count 5.13 10^6/uL (3.85-5.65); White Blood Count 13.15 10^3/uL (3.29-11.43)
[2024-12-25 05:26] LABS: Lactate (Lactic Acid level) 1.3 mmol/L (0.5-2.2)
[2024-12-25 05:34] LABS: Alanine Aminotransferase 17 U/L (0-41); Albumin Level 3.9 g/dL (3.5-5.2); Alkaline Phosphatase 71 U/L (40-130); Anion Gap 17.1 (5-19); Aspartate Amino Transferase 22 U/L (0-40); Blood Urea Nitrogen 11 mg/dL (6-20); Calcium 8.6 mg/dL (8.5-10.5); Carbon Dioxide 25 mmol/L (22-29); Chloride 97 mmol/L (98-107); Creatinine Clr Calc Pharmacy 137.9154; Globulin 2.9 g/dL (1.3-4.6); Glucose 131 mg/dL (65-115); Magnesium 2.1 mg/dL (1.7-2.3); Osmolality Calculated 281 mOsm/kg (285-295); Potassium 4.1 mmol/L (3.5-5.1); Sodium 135 mmol/L (136-145); Total Protein 6.8 g/dL (6.6-8.7)
[2024-12-25 07:52] VITALS: BP 167/94; PULSE 62; RESP 18; TEMP 36.4; O2SAT 97
[2024-12-25] MEDS: acetaminophen 1,000 MG/100 ML PIGGYBACK 400 MG IV (08:38)
[2024-12-25] MEDS: ondansetron 2 mg/ML SDV 2 mL 4 MG IVP (08:45)
--- NOTE | 2024-12-25 08:49 | P.PN_ITS ---
Subjective 2 Subjective: Feeling much better this morning, white count has trended down to 13, normal lactate, normal vital signs. Has not passed gas or stool, NG output overnight was only 40 cc and this morning after manipulation and another 150 cc were obtained. Less abdominal pain. Vitals/I&O/Wt Last Vital Signs Temp 97.5 F L 12/25/24 07:52 Pulse 62 12/25/24 07:52 Resp 18 12/25/24 07:52 BP 167/94 12/25/24 07:52 Pulse Ox 97 12/25/24 07:52 O2 Del Method Room Air 12/25/24 07:52 12/24/24 12/25/24 12/25/24 22:59 06:59 14:59 Intake Total 1026.667 / 1980.000 885.000 / 2865.000 Output Total 250 / 700 200 / 900 Balance 776.667 / 1280.000 685.000 / 1965.000 Weight last 48 hrs Weight 231 lb 12.8 oz Weight 231 lb 9 oz Weight 231 lb 9 oz Weight 239 lb 13.807 oz Weight 230 lb Physical Exam 2 GI: OTHER: Abdomen is distended minimally tender, there is better bowel sounds today do not appear to be as tympanic as yesterday Data 12/25/24 04:45 12/25/24 04:45 Micro: Microbiology 12/23/24 23:45 Blood Culture - Preliminary Blood NEGATIVE TO DATE 12/23/24 23:37 Blood Culture - Preliminary Blood NEGATIVE TO DATE A&P Assessment and plan 1. Abdominal pain: 2. Small bowel obstruction: Plan: Patient showing good progression of SBO with conservative management. The plan is to decompress additional 24 hours before proceeding with a Gastrografin trial. Has remained otherwise stable no evidence of worsening signs requiring immediate surgical intervention. His pain level has actually improved and his abdominal exam is better also today. Will have the patient ambulate as much as possible today, I did have a discussion with him and explained that if gastroenterology is negative he may still need an operation he shows understanding PDMP PDMP Reviewed: Not Reviewed Attestations 2 Medical Necessity Statement*: Per medical team Coding Level of Care Code Acute Code for Chg Fwd Diagnoses Abdominal pain R10.9 Small bowel obstruction K56.609
[2024-12-25] MEDS: piperacillin-tazobactam 3.375 GM in sodium chloride 0.9% (plus) 50 ML IV ×2 (09:41→15:49)
--- NOTE | 2024-12-25 10:42 | PC.SOCIAL ---
IMM Update pg 2 of IMM Updated and reviewed w/ patient. Copy provided and copy dated, initialed and placed in chart.
[2024-12-25 11:35] VITALS: BP 148/97; PULSE 61; RESP 17; TEMP 36.7; O2SAT 97
[2024-12-25] MEDS: heparin 5,000 unit/mL INJ 1 mL 5000 UNIT SUBCUT (11:45)
[2024-12-25 16:00] VITALS: BP 154/84; PULSE 57; RESP 17; TEMP 36.6; O2SAT 94
--- NOTE | 2024-12-25 16:08 | P.PN_ITS ---
Subjective 2 Subjective: Patient states pain is better controlled today. He has some bowel sounds today. Yet to pass feces or flatus. Medications: Reviewed: Yes Vitals/I&O/Wt Last Vital Signs Temp 98.0 F 12/25/24 11:35 Pulse 61 12/25/24 11:35 Resp 17 12/25/24 11:35 BP 148/97 12/25/24 11:35 Pulse Ox 97 12/25/24 11:35 O2 Del Method Room Air 12/25/24 11:35 12/25/24 12/25/24 12/25/24 06:59 14:59 22:59 Intake Total 885.000 / 2865.000 1150 / 1150 Output Total 200 / 900 150 / 150 Balance 685.000 / 1434.360 9741 / 1000 Weight last 48 hrs Weight 105.143 kg Weight 105.035 kg Weight 105.035 kg Weight 108.8 kg Weight 104.326 kg Physical Exam 2 Narrative: General: No acute distress, AO x3 HEENT: PERRLA, pupils bilaterally equal and reactive, pallors not present Chest: Normal vesicular breath sounds, no added sounds, equal good air entry bilaterally CVS: S1-S2 regular, no murmurs, no tachycardia, no gallops, no rubs Abdomen: Soft, nontender, no organomegaly, bowel sounds present Neuro: No focal deficits, no facial deformity, AO x3, power 5/5 in all limbs Data 12/25/24 04:45 12/25/24 04:45 Micro: Microbiology 12/23/24 23:45 Blood Culture - Preliminary Blood NEGATIVE TO DATE 12/23/24 23:37 Blood Culture - Preliminary Blood NEGATIVE TO DATE A&P Assessment and plan 1. Small bowel obstruction: - Previous history of multiple surgeries and chronic pain syndrome on opiates leading to intermittent subacute/partial small bowel obstruction. 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 Essential (primary) hypertension: - Patient having uncontrolled BP secondary to pain and distress as well -Continue home medications and to clamp the NGT for 30 minutes after administration of the medications as per surgery 3. Generalized anxiety disorder: - Continue home medication with quetiapine - Continue melatonin as needed in the night 4. Lumbar stenosis with neurogenic claudication: - Patient has been on Dilaudid approximately 1 year ago and was doing better and later on switched to extended release morphine by the pain doctor, which has led to his decreased bowel motions and also uncontrolled chronic pain syndrome - Dilaudid to continue as scheduled and also morphine extended release to control his chronic pain which runs at 7 out of 10 at baseline 5. Chronic pain syndrome: As mentioned above 6. Dyslipidemia: Stable 7. Long-term use of high-risk medication: Counseling and adequate education to be provided for medication use and compliance Plan: December 24, 2024 Complains of inadequate pain control. Discontinue oral hydromorphone. Changed to Dilaudid 2 mg IV every 4 hours as needed. Patient typically takes 30 mg of oral morphine at home. Will switch hypertension regimen from oral to IV meds. Noted to have feculent vomiting, NGT to suction, questionable effectiveness of oral medications at this time. Appreciate surgical recommendations. Closely monitor with conservative management NGT if no improvement will likely need to proceed to surgery. December 25, 2024 Pain is better controlled today. Continue IV Dilaudid regimen as started yesterday. Patient has some bowel sounds today. Yet to pass feces or flatus. NGT remains in place, WBC count trending down to 13,000 today. Plan to continue conservative management of SBO. Plan for Gastrografin trial in the upcoming 24 hours PDMP PDMP Reviewed: Not Reviewed Attestations 2 Medical Necessity Statement*: Continuing conservative management of SBO Coding Level of Care Code Acute Code for [facility] Diagnoses Small bowel obstruction K56.609 Essential (primary) hypertension I10 Generalized anxiety disorder F41.1 Lumbar stenosis with neurogenic claudication M48.062 Chronic pain syndrome G89.4 Dyslipidemia E78.5 Long-term use of high-risk medication Z79.899
[2024-12-25 20:00] VITALS: BP 162/92; PULSE 63; TEMP 36.6; O2SAT 95
[2024-12-25] MEDS: pantoprazole 40 mg SDV IVP (23:03)
[2024-12-26 00:12] VITALS: BP 133/80; PULSE 57; RESP 14; TEMP 37; O2SAT 94
[2024-12-26] MEDS: piperacillin-tazobactam 3.375 GM in sodium chloride 0.9% (plus) 50 ML IV ×3 (00:13→20:23)
[2024-12-26] MEDS: HYDROmorphone 0.5 MG/0.5 ML INJ 2 MG IVP ×5 (02:11→20:22)
[2024-12-26 04:00] VITALS: BP 119/70; PULSE 57; RESP 19; TEMP 36.6; O2SAT 96
[2024-12-26 05:05] LABS: Hematocrit 39.8 % (37-53); Hemoglobin 13.30 g/dL (11.27-16.99); Mean Corpuscular HGB Conc 33.4 g/dL (30-55); Mean Corpuscular Hemoglobin 29.7 pg (27-33); Mean Corpuscular Volume 88.8 fl (82-101); Nucleated Red Blood Cells % 0 %; Platelet Count 247 10^3/cmm (157-399); Red Blood Count 4.48 10^6/uL (3.85-5.65); White Blood Count 9.80 10^3/uL (3.29-11.43)
[2024-12-26 05:14] LABS: Alanine Aminotransferase 22 U/L (0-41); Albumin Level 3.8 g/dL (3.5-5.2); Alkaline Phosphatase 61 U/L (40-130); Anion Gap 15.0 (5-19); Aspartate Amino Transferase 27 U/L (0-40); Blood Urea Nitrogen 15 mg/dL (6-20); Calcium 8.3 mg/dL (8.5-10.5); Carbon Dioxide 28 mmol/L (22-29); Chloride 96 mmol/L (98-107); Creatinine Clr Calc Pharmacy 120.7367; Globulin 2.6 g/dL (1.3-4.6); Glucose 123 mg/dL (65-115); Magnesium 2.1 mg/dL (1.7-2.3); Osmolality Calculated 282 mOsm/kg (285-295); Potassium 4.0 mmol/L (3.5-5.1); Sodium 135 mmol/L (136-145); Total Protein 6.4 g/dL (6.6-8.7)
--- NOTE | 2024-12-26 06:11 | XRR_ITS ---
PROCEDURE INFORMATION: Exam: XR Abdomen Exam date and time: 12/26/2024 7:34 AM Age: 59 years old Clinical indication: Other: Ng placement; Additional info: Sbo/ng position TECHNIQUE: Imaging protocol: Radiologic exam of the abdomen. Views: Frontal supine view of the abdomen. 1 View. COMPARISON: CT abdomen pelvis w con* [id number] 12/23/2024 6:35 PM FINDINGS: Gastrointestinal tract: Gastric tube terminates in the upper stomach. Slightly prominent small bowel loops raise the possibility of ileus or obstruction. Bones/joints: Unremarkable. XR/XR abdomen 1V* [id number] IMPRESSION: Gastric tube terminates in the upper stomach.
[2024-12-26 07:51] VITALS: BP 168/73; PULSE 92; RESP 17; TEMP 36.6; O2SAT 96
--- NOTE | 2024-12-26 08:27 | P.PN_ITS ---
Subjective 2 Subjective: Patient doing okay this morning, he is feeling better endorses passing good amount of gas over the last 24 hours although his NG output has remained hide in about 1.5 L over 24 hours. Vitals/I&O/Wt Last Vital Signs Temp 97.8 F 12/26/24 07:51 Pulse 92 12/26/24 07:51 Resp 17 12/26/24 07:51 BP 168/73 12/26/24 07:51 Pulse Ox 96 12/26/24 07:51 O2 Del Method Room Air 12/26/24 07:51 12/25/24 12/26/24 12/26/24 22:59 06:59 14:59 Intake Total 50 / 1200 1015 / 2215 Output Total 500 / 650 1050 / 1700 Balance -450 / 550 -35 / 515 Weight last 48 hrs Weight 234 lb Weight 231 lb 12.8 oz Physical Exam 2 GI: OTHER: The abdominal exam is improved the abdomen is soft but distended there is minimal tenderness and bowel sounds are present Data 12/26/24 04:13 12/26/24 04:13 A&P Assessment and plan 1. Small bowel obstruction: Plan: I have discussed with the patient the plan, after obtaining an x-ray this morning verifying correct positioning of the NG tube I proceeded to administer 100 cc of Gastrografin and 50 cc of water for a Gastrografin trial. We will obtain x-rays at 1 PM 7 PM and tomorrow morning I have explained to the patient in case of a failed Gastrografin trial we will have to offer him surgery and he shows understanding and agrees. Patient will ambulate today as tolerated to aid in bowel motility. Vital signs have been stable, laboratory workup shows now a normal white count. PDMP PDMP Reviewed: Not Reviewed Attestations 2 Medical Necessity Statement*: Per medical team Coding Level of Care Code Acute Code for Chg Fwd Diagnoses Small bowel obstruction K56.609
[2024-12-26] MEDS: heparin 5,000 unit/mL INJ 1 mL 5000 UNIT SUBCUT ×2 (10:52→22:14)
[2024-12-26 11:31] VITALS: BP 161/80; PULSE 55; RESP 16; TEMP 36.8; O2SAT 92
--- NOTE | 2024-12-26 12:09 | XRR_ITS ---
PROCEDURE INFORMATION: Exam: XR Abdomen Exam date and time: 12/26/2024 1:03 PM Age: 59 years old Clinical indication: Other: Sbo; Prior surgery; Surgery date: 6+ months; Surgery type: Gb, hernia x 2, appy; Additional info: Sbo; Gastrograffin trial; 4hr film TECHNIQUE: Imaging protocol: Radiologic exam of the abdomen. Views: Frontal supine view of the abdomen. 1 View. COMPARISON: CR (ABDOMEN, ) 12/26/2024 7:34 AM FINDINGS: Tubes, catheters and devices: NG tube in the stomach. Contrast seen in the colon and small bowel loops. Multiple dilated small bowel loops are seen. Gastrointestinal tract: See Tubes, catheters and devices finding. Bones/joints: Unremarkable. XR/XR abdomen 1V* [id number] IMPRESSION: Findings suggest partial small bowel obstruction. Clinical correlation is advised.
[2024-12-26 15:28] VITALS: BP 136/74; PULSE 56; RESP 18; TEMP 36.4; O2SAT 95
--- NOTE | 2024-12-26 16:19 | PM.MISC ---
Miscellaneous Note Purpose of Documentation: Update on patient care Note: DOing well so far, has passed more gas but no BM yet. Xray was read as parial SBO. Contrast is in the colon, most likely will remove NG in the morning and allow patient to have clears. I think his presentation is likely multifactorial and chronic opioid use is casing delay bowel motility, therefore will be slow to advance diet to prevent recurrent symptoms.
--- NOTE | 2024-12-26 18:59 | PM.MISC ---
Miscellaneous Note Purpose of Documentation: update on patient care Note: patient has been passing gas and had a large BM. will dc NGT and allow clears
[2024-12-26 20:00] VITALS: BP 138/68; PULSE 61; RESP 18; TEMP 36.8; O2SAT 96
[2024-12-26] MEDS: pantoprazole 40 mg SDV IVP (22:14)
[2024-12-27] VITALS: BP 169/81; PULSE 56; RESP 18; TEMP 37; O2SAT 95
[2024-12-27 04:00] VITALS: BP 159/88; PULSE 67; RESP 19; TEMP 36.7; O2SAT 92
[2024-12-27] MEDS: piperacillin-tazobactam 3.375 GM in sodium chloride 0.9% (plus) 50 ML IV ×3 (04:31→20:01)
--- NOTE | 2024-12-27 07:10 | XRR_ITS ---
PROCEDURE INFORMATION: Exam: XR Abdomen Exam date and time: 12/27/2024 8:37 AM Age: 59 years old Clinical indication: Constipation; Prior surgery; Surgery date: 6+ months; Surgery type: Hernia x 2, appy, gb; Additional info: Abdominal distention; Follow up sbo; Gastrograffin trial-24hr film TECHNIQUE: Imaging protocol: Radiologic exam of the abdomen. Views: Frontal supine view of the abdomen. 1 View. COMPARISON: CR XR abdomen 1V* [id number] 12/26/2024 1:03 PM FINDINGS: Lungs: Mild linear opacity in the left lung base, probably atelectasis. Gastrointestinal tract: Contrast is seen in the colon and rectum, which excludes a complete bowel obstruction. Moderately dilated small bowel loops again seen measuring up to 4.5 cm, probably related to partial obstruction. Intraperitoneal space: No gross free air seen. Organs: Cholecystectomy clips. Bones/joints: Moderate degenerative change in the visualized spine. XR/XR abdomen 1V* [id number] IMPRESSION: 1. Contrast is seen in the colon and rectum, which excludes a complete bowel obstruction. 2. Moderately dilated small bowel loops again seen measuring up to 4.5 cm, probably related to partial obstruction.
[2024-12-27 08:00] VITALS: BP 141/98; PULSE 55; RESP 16; TEMP 36.8; O2SAT 98
[2024-12-27] MEDS: polyethylene glycol 3350 Pkt 17 gm PO (08:14)
[2024-12-27] MEDS: HYDROmorphone 0.5 MG/0.5 ML INJ 2 MG IVP ×3 (08:20→20:03)
--- NOTE | 2024-12-27 09:35 | P.PN_ITS ---
Subjective 2 Subjective: None over the last 24 hours patient has had 2 large bowel movements after Gastrografin administration, he is passing gas he is abdominal pain has improved but he has several issues with anxiety and chronic medication control, according to the patient he was not even able to sleep due to the lack of anxiety medications that he usually takes at home and he is also concerned about the fact that we are not doing a full dose of his chronic pain medication. Vitals/I&O/Wt Last Vital Signs Temp 98.3 F 12/27/24 08:00 Pulse 55 L 12/27/24 08:00 Resp 16 12/27/24 08:00 BP 141/98 12/27/24 08:00 Pulse Ox 98 12/27/24 08:00 O2 Del Method Room Air 12/27/24 08:00 12/26/24 12/27/24 12/27/24 22:59 06:59 14:59 Intake Total 485 / 1485 410 / 1895 50 / 50 Output Total 1050 / 1050 Balance 485 / 1135 410 / 1545 -1000 / -1000 Weight last 48 hrs Weight 234 lb Weight 234 lb Physical Exam 2 GI: OTHER: The abdominal examination is benign the abdomen is soft is still distended but minimal to no tenderness to palpation there is good bowel sounds Data 12/26/24 04:13 12/26/24 04:13 A&P Assessment and plan 1. Small bowel obstruction: Plan: Patient is showing adequate progression, the Gastrografin trial was positive implying that his partial small bowel obstruction is starting to resolve. He did have 2 very good bowel movements in the last 24 hours, has tolerated full liquid diet, denies nausea or vomiting at the moment. He is vital signs have remained stable and last white count was normal. He was advanced to a full liquid diet and we will keep him on full liquid diet over the next 24 hours. I discussed with him regarding the plan, at this point in the last x-ray Gastrografin has completely been eliminated from the body but he is still has distention of several bowel loops, I think this to be a chronic component of possible slow transit and ileus rather than an acute small bowel obstruction as patient has been dealing with severe constipation as well as taking chronic opiate medication for several years. There is no other warning signs that make us think that this could be a persistent acute problem as his white count is normal his laboratory workup is normal has had a bowel movement. I do think he will probably benefit from staying on a full liquid diet at least for 2 to 3 days before he attempts to advance to a GI soft diet just as a precautionary measure. I have explained to him that in the case of persistent symptoms or if he develops nausea and vomiting the only additional option that we have is to proceed to the OR for exploration, and he understands this. Once he is transition to the outpatient setting he will receive warning signs of the need to come back to the hospital in case of worsening clinical symptoms. I will discuss with the medical team regarding working on his pain regimen as well anxiety regimen as we do need to make sure to reconcile his medications before he goes home. PDMP PDMP Reviewed: Not Reviewed Attestations 2 Medical Necessity Statement*: per medical team Coding Level of Care Code Acute Code for Chg Fwd Diagnoses Small bowel obstruction K56.609
[2024-12-27] MEDS: heparin 5,000 unit/mL INJ 1 mL 5000 UNIT SUBCUT ×2 (11:10→22:06)
[2024-12-27 12:00] VITALS: BP 128/73; PULSE 80; RESP 18; TEMP 37; O2SAT 96
[2024-12-27 16:00] VITALS: BP 144/80; PULSE 65; RESP 18; TEMP 36.6; O2SAT 96
--- NOTE | 2024-12-27 16:37 | P.PN_ITS ---
Subjective 2 Subjective: Patient is doing better with abdominal pain secondary to suppose small bowel obstruction did well with NG tube and decompression now moving bowel passing gas. Patient need to tolerate soft fluid and then likely advance to GI soft diet if tolerating diet will go home tomorrow patient small bowel is significant due to chronic narcotics per the surgeon Vitals/I&O/Wt Last Vital Signs Temp 97.9 F 12/27/24 16:00 Pulse 65 12/27/24 16:00 Resp 18 12/27/24 16:00 BP 144/80 12/27/24 16:00 Pulse Ox 96 12/27/24 16:00 O2 Del Method Room Air 12/27/24 16:00 12/27/24 12/27/24 12/27/24 06:59 14:59 22:59 Intake Total 410 / 1895 50 / 50 878.333 / 928.333 Output Total 1050 / 1050 Balance 410 / 1545 -1000 / -1000 878.333 / -121.667 Weight last 48 hrs Weight 106.141 kg Weight 106.141 kg Physical Exam 2 Narrative: Patient feeling better doing okay in no apparent distress HEENT normocephalic atraumatic neck neck is supple cardiovascular heart rate is regular lungs are pretty much clear abdomen soft nontender nondistended unremarkable. Extremities are intact no edema has good pulses neurology no focality lab studies lab studies reviewed and noted and are all within normal range for CBC and CMP Data 12/26/24 04:13 12/26/24 04:13 A&P Assessment and plan 1. Small bowel obstruction: 2. Abdominal pain: Plan: Abdominal pain secondary to a small bowel obstruction resolving - Abdominal pain and small bowel obstruction resolved - Patient passing gas and moving bowel - NG tube was placed for decompression has been removed - Dr. Lubin said that patient if tolerating fluid should be able to go home tomorrow - Patient small bowel obstruction, constipation due to chronic narcotics by the surgeon PDMP PDMP Reviewed: Not Reviewed Attestations 2 Medical Necessity Statement*: Patient be allowed to fully be able to tolerate diet prior to discharge tomorrow will out the next 23 hours for patient to go home Coding Level of Care Code 37922 Diagnoses Small bowel obstruction K56.609 Abdominal pain R10.9 Time Spent (min) 40
--- NOTE | 2024-12-27 16:46 | P.PN_ITS ---
Subjective 2 Subjective: Patient doing okay with NG tube for decompression of the abdomen for a small bowel obstruction. Surgery following this is a late--- note entry for 12/26/2024 for this patient Vitals/I&O/Wt Last Vital Signs Temp 97.9 F 12/27/24 16:00 Pulse 65 12/27/24 16:00 Resp 18 12/27/24 16:00 BP 144/80 12/27/24 16:00 Pulse Ox 96 12/27/24 16:00 O2 Del Method Room Air 12/27/24 16:00 12/27/24 12/27/24 12/27/24 06:59 14:59 22:59 Intake Total 410 / 1895 50 / 50 878.333 / 928.333 Output Total 1050 / 1050 Balance 410 / 1545 -1000 / -1000 878.333 / -121.667 Weight last 48 hrs Weight 106.141 kg Weight 106.141 kg Physical Exam 2 Narrative: Generally in no apparent distress HEENT normocephalic/atraumatic neck neck is supple cardiovascular heart rate is regular lungs are pretty much clear abdomen soft nontender nondistended unremarkable extremities are intact no edema has good pulses neurology he has no focality. Patient undergoing GI series to further evaluate small bowel obstruction and the progress. Data 12/26/24 04:13 12/26/24 04:13 A&P Assessment and plan 1. Small bowel obstruction: Plan: Small bowel obstruction - Going through studies to make sure patient is not obstructed - Will know once patient finished completion of the studies by the surgeon - Must continue to follow through and optimize PDMP PDMP Reviewed: Not Reviewed Attestations 2 Medical Necessity Statement*: Allow patient 2 days to optimize care prior to going home Coding Level of Care Code 42710 Diagnoses Small bowel obstruction K56.609 Time Spent (min) 45
[2024-12-27 20:00] VITALS: BP 147/74; PULSE 58; RESP 16; TEMP 36.9; O2SAT 95
[2024-12-27] MEDS: pantoprazole 40 mg SDV IVP (22:08)
[2024-12-28] VITALS (15 sets, daily range): BP systolic 147–209; BP diastolic 85–114; PULSE 50–90; RESP 15–20; TEMP 36.4–37.1; O2SAT 91–97; BMI 33.5
[2024-12-28] MEDS: HYDROmorphone 0.5 MG/0.5 ML INJ 2 MG IVP ×4 (04:15→21:39)
[2024-12-28] MEDS: piperacillin-tazobactam 3.375 GM in sodium chloride 0.9% (plus) 50 ML IV ×2 (04:24→13:45)
--- NOTE | 2024-12-28 08:38 | CT_ITS ---
WS: [id number] CT ABDOMEN PELVIS TECHNIQUE: Contrast-enhanced CT of the abdomen and pelvis with coronal and sagittal reformatted images. CLINICAL INFORMATION: follow of partial SBO COMPARISON: 12/23/2024 DLP: 1060.[address] scans at [facility] use at least one of these dose optimization techniques: automated exposure control; mA and/or kV adjustment per patient size (includes targeted exams where dose is matched to clinical indication); or iterative reconstruction. FINDINGS: Again seen are findings of partial small bowel obstruction with multiple dilated loops of small bowel with suspected transition point in the RIGHT mid abdomen similar to previous. Small bowel dilatation appears slightly progressed in the lower abdomen compared to previous. Small bowel loops measure up to 3.3 cm. Stomach is decompressed which has improved compared to previous. Proximal jejunal bowel loops are fluid-filled and distended. Distended small bowel loops in the pelvis. Contrast is seen to extend into the rectum. Persistent air and fluid in the colon. Fatty atrophy of the pancreas. Fatty liver. Cholecystectomy clips. Normal portal vein and splenic vein. Celiac and SMA are patent. Adrenal glands are normal. No hydronephrosis in either kidney. Bibasilar atelectasis. No other acute findings. CT/CT abdomen pelvis w con* [id number] IMPRESSION: 1. Similar-appearing partial small bowel obstruction with improved dilatation of the stomach and slightly progressed fluid-filled dilatation of some small poli wel loops in the pelvis. 2. Similar area of transition in the RIGHT mid abdomen suspicious for adhesion s. See bookmarked images. 3. Persistent air and fluid in the colon. Contrast extends to the rectum. 4. No other significant changes.
--- NOTE | 2024-12-28 08:40 | P.PN_ITS ---
Subjective 2 Subjective: 59-year-old male admitted with possible SBO. Complete mechanical SBO has been ruled out and he passed the Gastrografin trial has been tolerating diet has been having bowel movements multiple times a day. Despite this he still complains of significant bloating abdominal pain and does not feel like his clinical symptoms are improving. Vitals/I&O/Wt Last Vital Signs Temp 97.8 F 12/28/24 04:00 Pulse 69 12/28/24 04:00 Resp 18 12/28/24 04:00 BP 164/97 12/28/24 04:00 Pulse Ox 95 12/27/24 20:00 O2 Del Method Room Air 12/28/24 04:00 12/27/24 12/28/24 12/28/24 22:59 06:59 14:59 Intake Total 1730.000 / 1780.000 383.333 / 2163.333 Balance 1730.000 / 730.000 383.333 / 1113.333 Weight last 48 hrs Weight 234 lb Weight 234 lb Physical Exam 2 GI: OTHER: Benign abdominal exam the abdomen is distended but soft minimally tender and there is good bowel sounds Data 12/26/24 04:13 12/26/24 04:13 A&P Assessment and plan 1. Small bowel obstruction: Plan: Have discussed with the patient the course of his treatment. His last set of labs was completely unremarkable, he has remained completely stable from the clinical standpoint with regular normal vital signs has been tolerating diet has been passing gas having bowel movements but still complaining of severe abdominal pain and distention, therefore the only thing I can offer at this point is to obtain additional workup and imaging and depending on the results of workup and imaging we can decide if there is a need for any additional intervention. I will make the patient n.p.o. except for medications at this time, I will obtain CBC and BMP and also lactate level and will order a CT scan of the abdomen pelvis with p.o. and IV contrast. In the case of any significant findings in the imaging or laboratory workup we will discuss with the patient possible next steps. He shows understanding agrees with the plan PDMP PDMP Reviewed: Not Reviewed Attestations 2 Medical Necessity Statement*: per medical team Coding Level of Care Code Acute Code for [facility] Fwd Diagnoses Small bowel obstruction K56.609
[2024-12-28] MEDS: iohexol 350 mg/mL 500 mL Btl (per mL) PO (08:59)
[2024-12-28] MEDS: heparin 5,000 unit/mL INJ 1 mL 5000 UNIT SUBCUT (09:25)
[2024-12-28 09:30] LABS: Hematocrit 38.1 % (37-53); Hemoglobin 12.70 g/dL (11.27-16.99); Mean Corpuscular HGB Conc 33.3 g/dL (30-55); Mean Corpuscular Hemoglobin 29.8 pg (27-33); Mean Corpuscular Volume 89.4 fl (82-101); Nucleated Red Blood Cells % 0 %; Platelet Count 237 10^3/cmm (157-399); Red Blood Count 4.26 10^6/uL (3.85-5.65); White Blood Count 8.60 10^3/uL (3.29-11.43)
[2024-12-28 09:48] LABS: Anion Gap 15.9 (5-19); Blood Urea Nitrogen 9 mg/dL (6-20); Calcium 8.2 mg/dL (8.5-10.5); Carbon Dioxide 23 mmol/L (22-29); Chloride 97 mmol/L (98-107); Creatinine Clr Calc Pharmacy 122.5738; Glucose 173 mg/dL (65-115); Osmolality Calculated 277 mOsm/kg (285-295); Potassium 3.9 mmol/L (3.5-5.1); Sodium 132 mmol/L (136-145)
[2024-12-28 09:49] LABS: Lactate (Lactic Acid level) 2.8 mmol/L (0.5-2.2)
[2024-12-28] MEDS: iohexol 350 mg/mL 500 mL Btl (per mL) IV (10:47)
--- NOTE | 2024-12-28 13:39 | PM.MISC ---
Miscellaneous Note Purpose of Documentation: Update on patient care Note: Patient reviewed the workup. CT scan continues to show a partial small bowel obstruction likely due to adhesions. Was given in the morning for the CAT scan is already on the colon. Patient still has a normal white count normal labs except for mild inflammation of lactate level. Had extensive discussion with the patient and based on the findings I have decided to offer him exploration, we discussed the possibility of watchful waiting and slow advancement of diet at home taking consideration of partial obstructions often resolve there is also possibility of proceeding to the OR for exploration, we discussed risk and benefits including the risk of perforation of the intestine, enterotomy, injury to surrounding structures, major bleeding, intra-abdominal abscess, enterocutaneous fistula, evisceration, hernia, bowel resection, need for ostomy creation, possible . After discussing risks and benefits the patient has decided proceed with the expiration into the OR. He has requested that at least we try I have explained that due to abdominal distention working space is limited with laparoscopy and if not he is okay to conversion to a laparotomy, but I will attempt to put a camera in the beginning Of the case. He is agreeable to this. I also informed him that there is a small chance of remaining with an open abdomen and that he will have an NG tube and Aguirre catheter in the immediate postoperativeperiod. Patient is currently stable, case will be booked for the next available or block this evening
--- NOTE | 2024-12-28 15:47 | ANES.PREANE2 ---
Pre-Anesthetic Assessment Height/Weight: Height 5 ft 10 in Weight 239 lb Temp Pulse Resp BP Pulse Ox O2 Del Method 98.1 F 50 L 17 153/90 97 Room Air 12/28/24 12:36 12/28/24 12:36 12/28/24 12:36 12/28/24 12:36 12/28/24 12:36 12/28/24 04:00 Preop Diagnosis: Bowel obstruction Operation Date: 12/28/24 16:20 Proposed Procedures p Laparoscopy Diagnostic Laparoscopy w/ Biopsy(Not Applicable) - Caleb Fontaine MD s Exploratory Laparotomy(Not Applicable) - Caleb Fontaine MD s Possible Small Bowel Resection(Not Applicable) - Caleb Fontaine MD Was Beta Foreign taken within 24 hours: N/A Was Clonidine taken within 24 hours: N/A Social No alcohol and No tobacco Exam alert, oriented x 3, clear to auscultation bilaterally and regular rate & rhythm Airway Submandibular: within normal limits Cervical ROM: Other (5 prior neck surgeries) Mallampati: Class III Comments: Comments: Poor dentition, denies any loose teeth Anesthetic Plan ASA status: 3 Anesthesia: General Other: Patient initially admitted on 12/23/2024 with small bowel obstruction History of hypertension on losartan, amlodipine and clonidine GERD on Protonix Labs from 12/28/2024 reviewed and acceptable for procedure, chronic hyponatremia noted, NA 132 today Negative stress test in 2021 EKG sinus rhythm Plan for GETA with video laryngoscopy Medications/Allergies Home Medications ?Medication ?Instructions ?Recorded ?Confirmed ?Last Taken ?Type CPAP supplies #1 ea 11/29/20 12/23/24 06/01/24 Rx back brace (Back Support S/M) #1 ea 05/15/21 12/23/24 06/01/24 Rx back brace #1 ea 05/30/21 12/23/24 06/01/24 Rx AUTO - TITRATING CPAP 6-10CM #1 ea 01/17/23 12/23/24 06/01/24 Rx nitroglycerin 0.4 mg sublingual 0.4 mg sublingual Q5M PRN Chest 07/14/23 12/23/24 12/23/24 08:00 History tablet (Nitrostat) Pain rollaid walker with chair #1 ea 09/11/23 12/23/24 06/01/24 Rx tamsulosin 0.4 mg capsule 0.4 mg PO DAILY #30 caps 10/04/23 12/23/24 12/23/24 08:00 Rx ondansetron 4 mg disintegrating 4 mg PO Q8H PRN nausea and 01/31/24 12/23/24 12/23/24 08:00 Rx tablet vomiting #10 tabs losartan 50 mg tablet 50 mg PO DAILY 05/27/24 12/23/24 12/23/24 08:00 History melatonin 10 mg tablet 10 mg PO BEDTIME 06/03/24 12/23/24 12/23/24 08:00 History amlodipine 2.5 mg tablet 2.5 mg PO DAILY #90 tabs 07/14/24 12/23/24 12/23/24 08:00 Rx pantoprazole 40 mg tablet,delayed 40 mg PO DAILY #90 tabs 07/22/24 12/23/24 12/23/24 08:00 Rx release naloxone 4 mg/actuation nasal 4 mg intranasal Q2M PRN opioid 08/11/24 12/23/24 12/23/24 08:00 Rx spray (Narcan) overdose #2 ea bisacodyl 5 mg tablet 15 mg PO DAILY PRN constipation 09/30/24 12/23/24 12/23/24 08:00 History clonidine HCl 0.1 mg tablet 0.1 mg PO BID PRN agitation #60 09/30/24 12/23/24 12/23/24 08:00 Rx tabs morphine 15 mg immediate release 15 mg PO BID 09/30/24 12/23/24 12/23/24 08:00 History tablet morphine 15 mg tablet,extended 15 mg PO BID 09/30/24 12/23/24 12/23/24 08:00 History release tizanidine 4 mg tablet 8 mg (2 x 4 mg) PO TID muscle 10/22/24 12/23/24 12/23/24 08:00 Rx spasticity 30 days #180 tabs triamcinolone acetonide 0.1 % 1 applic topical BID PRN psoriasis 11/26/24 12/23/24 12/23/24 08:00 Rx topical ointment 2 weeks #30 grams duloxetine 40 mg capsule,delayed 40 mg PO .morning #30 caps 12/02/24 12/23/24 12/23/24 08:00 Rx release lactulose 10 gram/15 mL oral 15 ml PO TID PRN Constipation 12/23/24 12/23/24 12/23/24 08:00 History solution quetiapine 50 mg tablet (Seroquel) 50 - 150 mg PO BEDTIME PRN insomnia 12/23/24 12/23/24 12/23/24 08:00 History Allergies Allergy/AdvReac Type Severity Reaction Status Date / Time pregabalin (From Lyrica) Allergy Intermediate ADR-Halluci Verified 12/04/24 15:14 nating pineapple Allergy Unknown ALGY-Anaphy Verified 12/04/24 15:14 laxis oxycodone (From OxyContin) Allergy ADR-Gastrointestinal Verified 12/04/24 15:14 Upset levothyroxine sodium (From AdvReac Severe ADR-Halluci Verified 12/04/24 15:14 Euthyrox) nating hydrochlorothiazide AdvReac ADR-Agitate Verified 12/04/24 15:14 d oxycotin Allergy Severe ADR-Confusi Uncoded 12/04/24 15:14 on Current Medications Generic Name Dose Route Start Last Admin Trade Name Freq PRN Reason Stop Dose Admin Clonidine HCl 1 patch 12/24/24 17:00 12/24/24 17:00 Clonidine 0.2 Mg/24 Hr Patch TRANSDERMA 1 patch On Hold: 12/28/24 15:44 Q7D ABBIE Administration Comment: Order held by Process Transfer Heparin Sodium (Porcine) 5,000 unit 12/23/24 22:30 12/28/24 09:25 Heparin 5,000 Unit/Ml Inj 1 Ml SUBCUT 5,000 unit On Hold: 12/28/24 15:44 Q12H ABBIE Administration Comment: Order held by Process Transfer Hydromorphone HCl 2 mg 12/24/24 14:56 12/28/24 13:45 Hydromorphone 0.5 Mg/0.5 Ml Inj IVP 2 mg On Hold: 12/28/24 15:44 Q4H PRN Administration Comment: Order held by Process PAIN Transfer Lactated Ringer's 1,000 mls @ 100 mls/hr 12/23/24 22:30 12/28/24 13:46 Lactated Ringers IV 100 mls/hr On Hold: 12/28/24 15:44 .Q10H ABBIE Administration Comment: Order held by Process Transfer Piperacillin Sod/Tazobactam 50 mls @ 12.5 mls/hr 12/26/24 20:00 12/28/24 13:45 Sod 3.375 gm/ Sodium Chloride IV 12.5 mls/hr On Hold: 12/28/24 15:44 Q8H ABBIE Administration Comment: Order held by Process Transfer Ketorolac Tromethamine 15 mg 12/24/24 10:42 12/28/24 09:08 Ketorolac 30 Mg/Ml Inj IVP 12/29/24 10:41 15 mg On Hold: 12/28/24 15:44 Q6H PRN Administration Comment: Order held by Process MODERATE PAIN Transfer Ondansetron HCl 4 mg 12/23/24 22:21 12/25/24 08:45 Ondansetron 2 Mg/Ml Sdv 2 Ml IVP 4 mg On Hold: 12/28/24 15:44 Q8H PRN Administration Comment: Order held by Process vomiting, or N/V if npo Transfer Pantoprazole Sodium 40 mg 12/23/24 22:30 12/27/24 22:08 Pantoprazole 40 Mg Sdv IVP 40 mg On Hold: 12/28/24 15:44 Q24H ABBIE Administration Comment: Order held by Process Transfer Quetiapine Fumarate 50 mg 12/23/24 22:51 12/27/24 01:24 Quetiapine 25 Mg Tablet PO 50 mg On Hold: 12/28/24 15:44 BEDTIME PRN Administration Comment: Order held by Process insomnia Transfer Tizanidine HCl 8 mg 12/24/24 05:00 12/25/24 13:03 Tizanidine 4 Mg Tablet NG-TUBE Not Given On Hold: 12/25/24 18:56 TID ABBIE [facility] Anesthesia Medical History (Updated 12/23/24 @ 20:06 by Tim Lucio DO) Generalized anxiety disorder 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 Acute upper gastrointestinal bleeding Liver mass Leukocytosis Hyponatremia Chronic prescription opiate use Intractable nausea and vomiting Near syncope Nicotine dependence, chewing tobacco, uncomplicated Atherosclerosis of coronary artery Chest pain Psychiatric care Abnormal stress test COVID-19 History of colon polyps History of CVA (cerebrovascular accident) 2005 --left-sided weakness Nephrolithiasis Acute bronchitis Congestive heart failure Chronic low back pain Dizziness Major depressive disorder, recurrent, moderate Chronic neck pain History of [place] (myocardial infarction) History of TIA (transient ischemic attack) Left ventricular hypertrophy Hypertriglyceridemia MRSA (methicillin resistant Staphylococcus aureus) Bright red rectal bleeding Internal hemorrhoids Diastolic heart failure Hypothyroidism Essential (primary) hypertension Surgical History H/O esophagogastroduodenoscopy (05/10/20) History of colonoscopy 12/2014 --small tubular adenoma, limited diverticulosis 02/2018 --small internal hemorrhoids S/P appendectomy S/P cholecystectomy S/P hernia repair ventral with mesh x 2 H/O neck surgery x 5 ( some of those were for a postop MRSA infection ) Family History Mother Congestive heart failure (CHF) Thyroid disease Sister Thyroid disease Father Atrial fibrillation Brother Heart disease HX STENTS Other CAD (coronary artery disease) Diabetes Social History Smoking and tobacco/nicotine status: former use of tobacco/nicotine Second hand smoke exposure: Yes Alcohol intake: never Substance/Drug Use: never Lives independently: Yes Household members: spouse Marital status: Current occupational status: disabled Do you think of yourself as: Straight/Heterosexual Current gender identity: Male Data Anesthesia 12/28/24 09:18 12/28/24 09:18 Short CBC 12/28/24 Range/Units 09:18 WBC 8.60 (3.29-11.43) 10^3/uL Hgb 12.70 (11.27-16.99) g/dL Hct 38.1 (37-53) % MCV 89.4 (82-101) fl Plt Count 237 (157-399) 10^3/cmm Neut % (Auto) 60.6 % Neut # (Auto) 5.22 (1.8-7.7) 10^3/uL BMP 12/28/24 09:18 Sodium 132 L Potassium 3.9 Chloride 97 L Carbon Dioxide 23 BUN 9 Creatinine 0.8 Glucose 173 H Calcium 8.2 L Cardiac Studies: Sestamibi Stress Test (Cardiology) 10/13/21
--- NOTE | 2024-12-28 16:17 | PC.NURSE ---
1530, pt off floor to surgery with surgery staff and family.
[2024-12-28] MEDS: lidocaine-epi 1% 20 mL INJ 10 ML INJECTION (17:07)
[2024-12-28] MEDS: BUPivacaine 0.25% INJ 10 mL INJECTION (17:12)
--- NOTE | 2024-12-28 19:15 | ANES.PROC ---
Anesthesia Procedures Procedure/Date: 12/28/24 Nerve Block ^: Nerve Block 1: Main Anesthesia: general anesthesia Time Out Performed: Yes Consent: requested by attending/covering physician, risks and benefits reviewed and patient agrees to proceed Laterality: Right (Bilateral) Nerve block location: other (TAP) Anesthesia monitors applied: pulse oximetry, EKG, BP cuff and oxygen Nerve block position: supine Anesthetic Used: ropivicaine 0.5% (0.2%) Amount of anesthesia used (mL): 60 Ultrasound used to: recognize landmarks Nerve Stimulator Used?: No Interscalene/Femoral BLK: 4 stimuplex 21 g needle used for position and inplane approach, visualize local anesthetic spread and no vascular puncture identified Injection: neg aspiration of heme Patient Tolerated Procedure: well and no complications Complications: none
--- NOTE | 2024-12-28 19:24 | PC.NURSE ---
Shana, patient's , updated on surgical status.
--- NOTE | 2024-12-28 19:57 | PM.OP ---
Operative Report Date of procedure: December 28, 2024 Pre-op diagnosis: Small bowel obstruction Post-op diagnosis: Small bowel obstruction due to intra-abdominal adhesions Post-op findings: There was severe adhesions from the omentum to the anterior abdominal wall, there were multiple interloop adhesions causing several areas of kinking of the small bowel resulting in a partial small bowel obstruction Procedure done: Diagnostic laparoscopy with laparoscopic lysis of adhesions, exploratory laparotomy and lysis of adhesions Implants: None Specimens removed/disposition: None Surgeon: Caleb Fontaine MD Telemarketing Fundraiser: HAILEY OR STaff Estimated blood loss: 50 Complications: none apparent Brief History: 59-year-old male with multiple medical comorbidities presenting with a partial small bowel obstruction. Patient initially had a positive progression and has been able to tolerate diet but he continued to have significant abdominal pain and distention repeat CAT scan once again showed evidence of a partial small bowel obstruction and therefore we decided to offer surgical intervention. All risk benefits were discussed before proceeding to the OR Procedure: Patient was brought into the OR, he was placed in a supine position. General anesthesia was given. The abdomen was prepped and draped in the usual sterile fashion. A timeout was conducted. The abdomen was accessed via a 5 mm Optiview trocar in the left upper quadrant. Initial pneumoperitoneum was obtained and no evidence of visceral injury during entry was noted. Severe adhesions of the omentum to the anterior abdominal wall were noted. Additional 5 mm trocars were placed in the left flank and left lower quadrant for better access to the abdomen, which sharp dissection I was able to take down the majority of the adhesions of the omentum to the anterior abdominal wall, there was an area where the colon appeared to be close to the abdominal wall and therefore I decided to put another port in the right lower quadrant in order to better visualize this area after ruling out adhesions from the colon to anterior abdominal wall I proceeded to take down the remaining adhesions of the omentum to the abdominal wall using LigaSure. After the adhesions were removed it was apparent that patient had a large mesh in the mid abdomen that at this point has been integrated with the peritoneum. I then proceeded to run the bowel from the terminal ileum, the terminal ileum was decompressed until the area of the mid jejunum were several thick interloop adhesions in a segment of about 50 cm of bowel was noted, the adhesions were too thick for me to be able to safely dissect laparoscopically so at this point I decided to convert to an open procedure. A 15 cm midline laparotomy incision was made in the mid abdomen, the incision was deepened until the fascia was identified and the fascia was opened with electrocautery and the Metzenbaum scissor was used to cut the mesh. Once the abdomen was accessed an Arnie wound retractor was placed. I then proceeded to eviscerate the small bowel. The small bowel was ran from the ligament of Treitz all the way to the terminal ileum and the same findings started on laparoscopy where noted there was an area of about 50 cm of mid jejunum with extensive interloop adhesions, with careful sharp dissection with Metzenbaum, blade and with the help or a right angle I was able to lyse all the adhesions, the process was lengthy and took about 90 minutes to complete. The adhesions were very thick but not vascularized. After all the adhesions were lysed I ran the bowel once again and no evidence of serosal tears or perforation was noted. It was important to note that after lysis of adhesions the terminal ileum immediately distended signifying restitution of the intestinal transit. At this point I proceeded to pull down the omentum to cover the area underlying the surgical incision and verify the position of the NG tube by manual palpation of the stomach. I then proceeded to close the fascia of the abdominal wall with #1 PDS suture, once the fascia was closed I proceeded to reinsufflated the abdomen and the the final laparoscopy, no evidence of visceral injury was noted the bowel appears to be in good position omentum was covering the bowel in the area in direct contact with the surgical incision. All trocars were removed. No evidence of bleeding were noted before removing of the trocars. The pneumoperitoneum was then evacuated. The midline abdominal wound was irrigated local anesthesia was infiltrated and the wound was closed in layers using 3-0 Vicryl for the subcutaneous tissue and marlen for the skin all the laparoscopic ports were closed with marlen. Sterile dressing was applied. At the end of the procedure all counts were correct the patient tolerated well the procedure and remained in the OR for a tap block by anesthesia.
[2024-12-28] MEDS: hyDRALAzine 20 mg/mL INJ 1 mL 10 MG IVP (20:28)
[2024-12-28] MEDS: labetalol 5 mg/mL SDV 20mL 10 MG IVP (20:39)
--- NOTE | 2024-12-28 21:05 | ANE.PACU2 ---
Inpatient post-anesthesia follow up: Airway intact: Yes Vital signs: Temperature 97.7 F Pulse Rate 48 Respiratory Rate 18 Blood Pressure 149/76 Pulse Oximetry 99 Oxygen Delivery Me thod Nasal Cannula Oxygen Flow Rate 2 Fraction of Inspir ed Oxygen Hydration adequate: Yes Nausea and vomiting: No Pain level: 1 Mental status: Baseline
--- NOTE | 2024-12-28 21:16 | PC.NURSE ---
pt to floor. t- 97.5 oral bp 171/90 p-76 r -16 sat 91 % Resting quitely no complains of pain. jain draining to bedside gravity.
[2024-12-28] MEDS: acetaminophen 1,000 MG/100 ML PIGGYBACK 400 MG IV (21:34)
[2024-12-28] MEDS: pantoprazole 40 mg SDV IVP (22:46)
[2024-12-29] VITALS: BP 171/90; PULSE 59; RESP 17; TEMP 36.4; O2SAT 92
[2024-12-29] MEDS: HYDROmorphone 0.5 MG/0.5 ML INJ 2 MG IVP ×4 (02:37→23:10)
[2024-12-29 04:00] VITALS: BP 155/81; PULSE 54; RESP 16; TEMP 36.4; O2SAT 98
[2024-12-29 05:01] LABS: Hematocrit 39.0 % (37-53); Hemoglobin 13.20 g/dL (11.27-16.99); Mean Corpuscular HGB Conc 33.8 g/dL (30-55); Mean Corpuscular Hemoglobin 30.6 pg (27-33); Mean Corpuscular Volume 90.3 fl (82-101); Nucleated Red Blood Cells % 0 %; Platelet Count 275 10^3/cmm (157-399); Red Blood Count 4.32 10^6/uL (3.85-5.65); White Blood Count 14.49 10^3/uL (3.29-11.43)
[2024-12-29] MEDS: piperacillin-tazobactam 3.375 GM in sodium chloride 0.9% (plus) 50 ML IV (05:01)
[2024-12-29] MEDS: acetaminophen 1,000 MG/100 ML PIGGYBACK 100 MG IV (05:01)
[2024-12-29 05:27] LABS: Anion Gap 17.9 (5-19); Blood Urea Nitrogen 8 mg/dL (6-20); Calcium 8.4 mg/dL (8.5-10.5); Carbon Dioxide 24 mmol/L (22-29); Chloride 98 mmol/L (98-107); Creatinine Clr Calc Pharmacy 139.7925; Glucose 175 mg/dL (65-115); Magnesium 1.9 mg/dL (1.7-2.3); Osmolality Calculated 283 mOsm/kg (285-295); Potassium 4.9 mmol/L (3.5-5.1); Sodium 135 mmol/L (136-145)
[2024-12-29 05:28] LABS: Lactate (Lactic Acid level) 2.0 mmol/L (0.5-2.2)
[2024-12-29 07:49] VITALS: BP 149/76; PULSE 48; RESP 18; TEMP 36.5; O2SAT 99
--- NOTE | 2024-12-29 09:28 | P.PN_ITS ---
Subjective 2 Subjective: 59-year-old male with partial SBO now po stoperative day 1 status post diagnostic laparoscopy, exploratory laparotomy and extensive lysis of adhesions. She is doing well, abdominal pain is well-controlled with current regimen. Feels like he may start to pass some gas. Vitals/I&O/Wt Last Vital Signs Temp 97.7 F 12/29/24 07:49 Pulse 48 L 12/29/24 07:49 Resp 18 12/29/24 07:49 BP 149/76 12/29/24 07:49 Pulse Ox 99 12/29/24 07:49 O2 Del Method Nasal Cannula 12/29/24 07:49 O2 Flow Rate 2 12/28/24 21:13 12/28/24 12/29/24 12/29/24 22:59 06:59 14:59 Intake Total 1183.667 / 1768.667 100 / 1868.667 956.667 / 956.667 Output Total 350 / 550 Balance 833.667 / 1218.667 100 / 1318.667 956.667 / 956.667 Weight last 48 hrs Weight 238 lb Weight 239 lb Weight 234 lb Physical Exam 2 Narrative: NG tube in place has bilious output. GI: OTHER: Benign abdominal exam abdomen soft appropriately tender to palpation, surgical incision covered with dressing. Urinary Catheter Management: Aguirre: Cath Placed During This Visit: yes Reason for Continuing Indwelling Catheter: Other Urinary Catheter Date of Insertion: 12/28/24 Urinary Catheter Time of Insertion: 14:46 Data 12/29/24 04:47 12/29/24 04:47 Micro: Microbiology 12/23/24 23:45 Blood Culture - Final Blood NO GROWTH AFTER 5 DAYS 12/23/24 23:37 Blood Culture - Final Blood NO GROWTH AFTER 5 DAYS A&P Assessment and plan 1. Small bowel obstruction: Plan: Good progression for postoperative day 1. I have encouraged ambulation, Aguirre catheter can be removed once the patient is ambulating consistently. Will keep NG tube until patient has returned of bowel function. Anticipate 2 to 3 days to remove NG tube and advance diet before he is able to be discharged home. All other management per medical team appreciated PDMP PDMP Reviewed: Not Reviewed Attestations 2 Medical Necessity Statement*: Per medical team Coding Level of Care Code Acute Code for [facility]wd Diagnoses Small bowel obstruction K56.609
--- NOTE | 2024-12-29 10:28 | PC.NURSE ---
Pt able to sit up on side of the bed and tolerated well. Pt requested to have his ng tube clamped and use his walker to ambulate. Pt tolerates well.
[2024-12-29 11:17] VITALS: BP 118/57; PULSE 56; RESP 17; TEMP 36.3; O2SAT 97
[2024-12-29] MEDS: LORazepam 1 MG/0.5 ML injection IVP (12:27)
[2024-12-29] MEDS: meropenem 1,000 mg SDV 1000 MG IVP ×2 (12:27→20:47)
[2024-12-29] MEDS: doxycycline 100 MG in sodium chloride 0.9% (plus) 100 ML IV ×2 (12:34→20:48)
--- NOTE | 2024-12-29 14:23 | PM.MISC ---
Miscellaneous Note Purpose of Documentation: update on patient care Note: seen this afternoon, has been able to walk and pass gas. benign abdominal exam. will monitor NG output until the morning and plan to remove NG if output is low. patient agrees.
[2024-12-29 15:28] VITALS: BP 163/90; PULSE 59; RESP 16; TEMP 36.9; O2SAT 97
[2024-12-29] MEDS: acetaminophen 1,000 MG/100 ML PIGGYBACK 400 MG IV (15:39)
--- NOTE | 2024-12-29 18:18 | PC.SOCIAL ---
*IMM Update* Patient received copy of IMM, Copy is initialled, dated and placed in chart.
--- NOTE | 2024-12-29 18:20 | P.PN_ITS ---
Vitals/I&O/Wt Last Vital Signs Temp 98.5 F 12/29/24 15:28 Pulse 59 L 12/29/24 15:28 Resp 16 12/29/24 15:28 BP 163/90 12/29/24 15:28 Pulse Ox 97 12/29/24 15:28 O2 Del Method Room Air 12/29/24 15:28 O2 Flow Rate 2 12/28/24 21:13 12/29/24 12/29/24 12/29/24 06:59 14:59 22:59 Intake Total 100 / 0097.546 0054.667 / 1006.667 200 / 1206.667 Output Total 550 / 550 150 / 700 Balance 100 / 1318.667 456.667 / 456.667 50 / 506.667 Weight last 48 hrs Weight 107.955 kg Weight 108.409 kg Weight 106.141 kg Physical Exam 2 Urinary Catheter Management: Aguirre: Cath Placed During This Visit: yes Reason for Continuing Indwelling Catheter: Other Urinary Catheter Date of Insertion: 12/28/24 Urinary Catheter Time of Insertion: 14:46 Data 12/29/24 04:47 12/29/24 04:47 Micro: Microbiology 12/29/24 10:41 Blood Culture - Preliminary Blood SPECIMEN COLLECTED 12/29/24 10:46 Blood Culture - Preliminary Blood SPECIMEN COLLECTED 12/23/24 23:45 Blood Culture - Final Blood NO GROWTH AFTER 5 DAYS 12/23/24 23:37 Blood Culture - Final Blood NO GROWTH AFTER 5 DAYS A&P Assessment and plan 1. Small bowel obstruction: 2. Generalized anxiety disorder: Patient feels better today postoperatively status post adhesion lysis of the small bowel yesterday. 3. Conversion disorder with weakness or paralysis: 4. Abdominal pain: Plan: Small bowel obstruction - Status post adhesion lysis of the small bowel yesterday - Postop day 1 - Patient is doing okay but need a lot of decompression of the stomach/small bowel still distended - Pain is more controlled - Patient has NG tube to help with decompression - Patient had not moved gas today no bowel movement - Moving gas and having bowel movement at the rate limiting step for patient to get out of the hospital - Once these are done surgeon will determine the timing of feeding the patient starting with liquid diet and then to advance as tolerated - Right now patient remains n.p.o. till then - Patient is encouraged to increase activity - Patient does not want to listen to any other form of pain medication except for narcotics - He acknowledges that the narcotics are not good for him because it binds him more that is the only thing that helps him Disposition - Once patient is passing gas and moving bowel then oral feeding will initiate with liquid and then GI soft diet as tolerated only when the surgeon says so and if patient tolerates then we will discharge at that time - Allow 1 to 2 days for discharge PDMP PDMP Reviewed: Not Reviewed Attestations 2 Medical Necessity Statement*: Patient will need at least 1 to 2 days for optimization of care trying to pass gas to move bowel. Coding Level of Care Code 14121 Diagnoses Small bowel obstruction K56.609 Generalized anxiety disorder F41.1 Conversion disorder with weakness or paralysis F44.4 Abdominal pain R10.9 Time Spent (min) 50
[2024-12-29 20:00] VITALS: BP 147/80; PULSE 54; RESP 18; TEMP 36.8; O2SAT 93
[2024-12-29] MEDS: pantoprazole 40 mg SDV IVP (23:09)
[2024-12-30] VITALS: BP 129/67; PULSE 54; RESP 16; TEMP 36.6; O2SAT 91
[2024-12-30] MEDS: meropenem 1,000 mg SDV 1000 MG IVP ×3 (01:58→16:59)
[2024-12-30 04:00] VITALS: BP 163/78; PULSE 59; RESP 16; TEMP 36.9; O2SAT 97
[2024-12-30] MEDS: HYDROmorphone 0.5 MG/0.5 ML INJ 2 MG IVP ×3 (04:08→17:22)
[2024-12-30 05:28] LABS: Hematocrit 39.2 % (37-53); Hemoglobin 13.00 g/dL (11.27-16.99); Mean Corpuscular HGB Conc 33.2 g/dL (30-55); Mean Corpuscular Hemoglobin 29.6 pg (27-33); Mean Corpuscular Volume 89.3 fl (82-101); Nucleated Red Blood Cells % 0 %; Platelet Count 259 10^3/cmm (157-399); Red Blood Count 4.39 10^6/uL (3.85-5.65); White Blood Count 12.70 10^3/uL (3.29-11.43)
[2024-12-30 05:47] LABS: Anion Gap 17.8 (5-19); Blood Urea Nitrogen 12 mg/dL (6-20); Calcium 8.7 mg/dL (8.5-10.5); Carbon Dioxide 26 mmol/L (22-29); Chloride 97 mmol/L (98-107); Creatinine Clr Calc Pharmacy 139.7925; Glucose 121 mg/dL (65-115); Magnesium 2.0 mg/dL (1.7-2.3); Osmolality Calculated 285 mOsm/kg (285-295); Potassium 3.8 mmol/L (3.5-5.1); Sodium 137 mmol/L (136-145)
[2024-12-30 07:38] VITALS: BP 168/93; PULSE 57; RESP 16; TEMP 37; O2SAT 95
--- NOTE | 2024-12-30 08:59 | PM.PN ---
Subjective Subjective: Nose postoperative day 2 status post laparotomy with lysis of additions. He is doing very well has been passing good amount of gas, NG output has been low for the last 12 hours. Minimal abdominal pain in the lower aspect of the incision. Vitals/I&O/Wt Last Vital Signs Temp 98.6 F 12/30/24 07:38 Pulse 57 L 12/30/24 07:38 Resp 16 12/30/24 07:38 BP 168/93 12/30/24 07:38 Pulse Ox 95 12/30/24 07:38 O2 Del Method Room Air 12/30/24 07:38 O2 Flow Rate 2 12/28/24 21:13 12/29/24 12/30/24 12/30/24 22:59 06:59 14:59 Intake Total 1300 / 2306.667 Output Total 450 / 1000 900 / 1900 Balance 850 / 1306.667 -900 / 406.667 Weight last 48 hrs Weight 243 lb Weight 238 lb Physical Exam GI: OTHER: Benign abdominal exam abdomen is soft appropriately tender and with good bowel sounds Urinary Catheter Management: Aguirre: Cath Placed During This Visit: yes Reason for Continuing Indwelling Catheter: Other Urinary Catheter Date of Insertion: 12/28/24 Urinary Catheter Time of Insertion: 14:46 Data 12/30/24 04:53 12/30/24 04:53 Micro: Microbiology 12/29/24 10:41 Blood Culture - Preliminary Blood SPECIMEN COLLECTED 12/29/24 10:46 Blood Culture - Preliminary Blood SPECIMEN COLLECTED A&P Assessment and plan 1. Small bowel obstruction: Plan: NG tube was removed this morning, patient will be allowed to have clear liquid diet, the plan for today will be to ambulate as tolerated if hip patient is ambulated we will proceed to remove Aguirre catheter in the early afternoon. Once patient is passing more gas or has bowel movement we might advance to a full liquid diet, and the plan will be to advance him to a GI soft diet by tomorrow to allow him to transition home. Additional management per medical team is appreciated. Patient is cleared to start having p.o. pain medication and also home meds. PDMP PDMP Reviewed: Not Reviewed Attestations Medical Necessity Statement*: Per medical team Coding Level of Care Code Acute Code for [facility] Diagnoses Small bowel obstruction K56.609
[2024-12-30 11:10] VITALS: BP 151/82; PULSE 60; RESP 15; TEMP 37.4; O2SAT 94
--- NOTE | 2024-12-30 14:15 | PC.SOCIAL ---
*IMM Update* Patient received another copy of Important Message from [employer]. Copy In Chart, dated and initialled.
[2024-12-30 15:20] VITALS: BP 139/78; PULSE 60; RESP 17; TEMP 37.3; O2SAT 95
[2024-12-30 20:00] VITALS: BP 152/78; PULSE 61; RESP 16; TEMP 36.8; O2SAT 93
--- NOTE | 2024-12-30 21:09 | PM.PN ---
Subjective Subjective: Patient seen in the morning and was walking with his walker He has few sips of water and some ice cream. He felt bloated and some distention and was trying to move around Vitals/I&O/Wt Last Vital Signs Temp 98.2 F 12/30/24 20:00 Pulse 61 12/30/24 20:00 Resp 16 12/30/24 20:00 BP 152/78 12/30/24 20:00 Pulse Ox 93 12/30/24 20:00 O2 Del Method Room Air 12/30/24 15:20 O2 Flow Rate 2 12/28/24 21:13 12/30/24 12/30/24 12/30/24 06:59 14:59 22:59 Intake Total 1000 / 1000 100 / 1100 Output Total 900 / 1900 Balance -900 / 181.477 8875 / 1000 100 / 1100 Weight last 48 hrs Weight 110.223 kg Weight 107.955 kg Physical Exam Narrative: General: Alert and oriented, was standing and moving with a walker with mild abdominal distention, NGT removed, at room air HEENT: Normocephalic, atraumatic, grossly unremarkable exam Cardio: normal rate rhythm, normal S1-S2 without any murmurs, rubs, or gallops and JVD normal Respiratory: normal vascular breathing on auscultation without any wheezes, stridor, rhonchi GI: Abdomen tense and distended with presence of bowel sounds, patient s/p surgery and on abdominal binder for support Neuro: intact cranial nerves motor and sensory and cerebellar/coordination function without any focal neurological deficit Behavior: Appropriate and cooperative Extremities: Adequate palpable pulses, Urinary Catheter Management: Aguirre: Cath Placed During This Visit: yes, but has since been removed by the nurse Reason for Continuing Indwelling Catheter: Decision to DC Catheter Urinary Catheter Date of Insertion: 12/28/24 Urinary Catheter Time of Insertion: 14:46 Date Urinary Catheter Removed: 12/30/24 Time Urinary Catheter Discontinued: 10:30 Data 12/30/24 04:53 12/30/24 04:53 Micro: Microbiology 12/29/24 10:46 Blood Culture - Preliminary Blood NEGATIVE TO DATE 12/29/24 10:41 Blood Culture - Preliminary Blood NEGATIVE TO DATE A&P Assessment and plan 1. Small bowel obstruction: Patient s/p ex lap and NGT removed Clear fluids diet started Surgery on board Continue meropenem every 8 hours Laxatives Clear diet as per's tolerance of the patient Monitor intake and output Adequate analgesia to continue 2. Generalized anxiety disorder: Patient on quetiapine 100 mg twice daily and duloxetine 40 mg twice daily to continue 3. Lumbar stenosis with neurogenic claudication: Patient on adequate analgesia requiring Dilaudid and to continue 4. Chronic pain syndrome: As mentioned above 5. Nicotine dependence, chewing tobacco, uncomplicated: Adequate emphasis has been provided 6. Dyslipidemia: 7. Obstructive sleep apnea: Monitor for any desaturation episode, hold BiPAP since the patient has ex lap and bowel obstruction therefore it can lead to further abdominal distention and worsening of pain. 8. 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 Other Attestations: Patient condition has been discussed at length with the patient/family, I have independently reviewed the chart labs imaging/diagnostics/EKG. the goals of care and code status with the patient/family/NOK/legal food products sales representative, and documented accordingly. The patient/family has been informed about the current condition and further plan of care. Agreed with the plan of care and understood without any language barrier. Every effort was made to ensure accuracy of rotary screen printing machine operator. Any obvious errors or omissions should be clarified with the author of the document. Coding Level of Care Code 05939 Diagnoses Small bowel obstruction K56.609 Generalized anxiety disorder F41.1 Lumbar stenosis with neurogenic claudication M48.062 Chronic pain syndrome G89.4 Nicotine dependence, chewing tobacco, uncomplicated F17.220 Dyslipidemia E78.5 Obstructive sleep apnea G47.33 Essential hypertension I10
[2024-12-30 21:57] LABS: Free T4 Free Thyroxine 1.36 ng/dL (0.82-1.77)
[2024-12-30] MEDS: pantoprazole 40 mg SDV IVP (22:55)
[2024-12-31] VITALS (8 sets, daily range): BP systolic 128–182; BP diastolic 62–98; PULSE 60–84; RESP 16–18; TEMP 36.4–37; O2SAT 94–98
[2024-12-31] MEDS: meropenem 1,000 mg SDV 1000 MG IVP ×4 (01:24→23:45)
[2024-12-31 04:52] LABS: Hematocrit 39.0 % (37-53); Hemoglobin 13.10 g/dL (11.27-16.99); Mean Corpuscular HGB Conc 33.6 g/dL (30-55); Mean Corpuscular Hemoglobin 30.3 pg (27-33); Mean Corpuscular Volume 90.1 fl (82-101); Nucleated Red Blood Cells % 0 %; Platelet Count 258 10^3/cmm (157-399); Red Blood Count 4.33 10^6/uL (3.85-5.65); White Blood Count 12.72 10^3/uL (3.29-11.43)
[2024-12-31 05:15] LABS: Anion Gap 15.9 (5-19); Blood Urea Nitrogen 11 mg/dL (6-20); Calcium 8.4 mg/dL (8.5-10.5); Carbon Dioxide 24 mmol/L (22-29); Chloride 97 mmol/L (98-107); Creatinine Clr Calc Pharmacy 141.2505; Glucose 141 mg/dL (65-115); Magnesium 2.0 mg/dL (1.7-2.3); Osmolality Calculated 278 mOsm/kg (285-295); Potassium 3.9 mmol/L (3.5-5.1); Sodium 133 mmol/L (136-145)
[2024-12-31] MEDS: HYDROmorphone 0.5 MG/0.5 ML INJ 2 MG IVP ×4 (05:52→21:05)
[2024-12-31] MEDS: potassium phosphate (mMol PO4) 15 MMOL in sodium chloride 0.9% (100 ml) 100 ML 47 MMOL IV (06:43)
--- NOTE | 2024-12-31 09:26 | P.PN_ITS ---
Subjective 2 Subjective: Patient seen in the morning and was sitting on his bed, on clear fluids, able to hold in however feeling bloated since yesterday and did not pass flatus he is able to walk around as well Medications: Reviewed: Yes Vitals/I&O/Wt Last Vital Signs Temp 98.3 F 12/31/24 07:27 Pulse 60 12/31/24 07:27 Resp 17 12/31/24 07:27 BP 159/84 12/31/24 07:27 Pulse Ox 94 12/31/24 07:27 O2 Del Method Room Air 12/30/24 15:20 O2 Flow Rate 2 12/28/24 21:13 12/30/24 12/31/24 12/31/24 22:59 06:59 14:59 Intake Total 100 / 1100 345 / 345 Output Total 100 / 100 250 / 350 Balance 0 / 1000 -250 / 750 345 / 345 Weight last 48 hrs Weight 111.13 kg Weight 110.223 kg Physical Exam 2 Narrative: General: Alert and oriented, was standing and moving with a walker with mild abdominal distention, at room air HEENT: Normocephalic, atraumatic, grossly unremarkable exam Cardio: normal rate rhythm, normal S1-S2 without any murmurs, rubs, or gallops and JVD normal Respiratory: normal vascular breathing on auscultation without any wheezes, stridor, rhonchi GI: Abdomen tense and distended with presence of bowel sounds, patient s/p surgery and on abdominal binder for support Neuro: intact cranial nerves motor and sensory and cerebellar/coordination function without any focal neurological deficit Behavior: Appropriate and cooperative Extremities: Adequate palpable pulses, Urinary Catheter Management: Aguirre: Cath Placed During This Visit: yes, but has since been removed by the nurse Reason for Continuing Indwelling Catheter: Decision to DC Catheter Urinary Catheter Date of Insertion: 12/28/24 Urinary Catheter Time of Insertion: 14:46 Date Urinary Catheter Removed: 12/30/24 Time Urinary Catheter Discontinued: 10:30 Data 12/31/24 04:35 12/31/24 04:35 Micro: Microbiology 12/29/24 10:46 Blood Culture - Preliminary Blood NEGATIVE TO DATE 12/29/24 10:41 Blood Culture - Preliminary Blood NEGATIVE TO DATE A&P Assessment and plan 1. Small bowel obstruction: Patient s/p ex lap and able to hold in the clear fluid diet, however did not pass gas yet cont on bowel regimen and laxatives ( scheduled colace and senna tid) Surgery on board and to follow the recs, recommended to wait and watch since the patient is on high dose opiods and has slow transit Continue meropenem every 8 hours advance diet as tolerated Monitor intake and output Adequate analgesia to continue 2. Generalized anxiety disorder: Patient on quetiapine 100 mg twice daily and duloxetine 40 mg twice daily to continue 3. Lumbar stenosis with neurogenic claudication: Patient on adequate analgesia requiring Dilaudid and to continue 4. Chronic pain syndrome: As mentioned above 5. Nicotine dependence, chewing tobacco, uncomplicated: Adequate emphasis has been provided 6. Dyslipidemia: stable 7. Obstructive sleep apnea: Monitor for any desaturation episode, hold BiPAP since the patient has ex lap and bowel obstruction therefore it can lead to further abdominal distention and worsening of pain. 8. 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 Hypophosphatemia: correction applied and to follow accordingly PDMP PDMP Reviewed: Not Reviewed Attestations 2 Medical Necessity Statement*: Ben Nielsen's hospital stay will require greater than 2 midnights for bowel obstruction s/p ex lap Time Spent in Patient Care: 16 - 35 minutes (>than 50% of time sp ent in counselling and/or direct pt care on unit) . Other Attestations: Patient condition has been discussed at length with the patient/family, I have independently reviewed the chart labs imaging/diagnostics/EKG. the goals of care and code status with the patient/family/NOK/legal client relations representative, and documented accordingly. The patient/family has been informed about the current condition and further plan of care. Agreed with the plan of care and understood without any language barrier. Every effort was made to ensure accuracy of pathology secretary/transcriptionist. Any obvious errors or omissions should be clarified with the author of the document. Coding Level of Care Code 00522 Diagnoses Small bowel obstruction K56.609 Generalized anxiety disorder F41.1 Lumbar stenosis with neurogenic claudication M48.062 Chronic pain syndrome G89.4 Nicotine dependence, chewing tobacco, uncomplicated F17.220 Dyslipidemia E78.5 Obstructive sleep apnea G47.33 Essential hypertension I10 Hypophosphatemia E83.39
--- NOTE | 2024-12-31 12:01 | P.PN_ITS ---
Subjective 2 Subjective: 59-year-old male postoperative day 3 sta tus post diagnostic laparoscopy, exploratory laparotomy with lysis of additions for small bowel obstruction. Patient is doing okay has been passing gas but over the last 12 hours he endorses not being able to pass any more gas and feeling liquid more bloated. No nausea or vomiting, has been tolerating full liquid diet so far. Vitals/I&O/Wt Last Vital Signs Temp 98.0 F 12/31/24 11:43 Pulse 63 12/31/24 11:43 Resp 18 12/31/24 11:43 BP 131/74 12/31/24 11:43 Pulse Ox 94 12/31/24 11:43 O2 Del Method Room Air 12/30/24 15:20 O2 Flow Rate 2 12/28/24 21:13 12/30/24 12/31/24 12/31/24 22:59 06:59 14:59 Intake Total 100 / 1100 345 / 345 Output Total 100 / 100 250 / 350 475 / 475 Balance 0 / 1000 -250 / 750 -130 / -130 Weight last 48 hrs Weight 245 lb Weight 243 lb Physical Exam 2 GI: OTHER: Abdominal exam is benign the abdomen is soft is appropriately tender is distended has good bowel sounds Urinary Catheter Management: Aguirre: Cath Placed During This Visit: yes, but has since been removed by the nurse Reason for Continuing Indwelling Catheter: Decision to DC Catheter Urinary Catheter Date of Insertion: 12/28/24 Urinary Catheter Time of Insertion: 14:46 Date Urinary Catheter Removed: 12/30/24 Time Urinary Catheter Discontinued: 10:30 Data 12/31/24 04:35 12/31/24 04:35 Micro: Microbiology 12/29/24 10:46 Blood Culture - Preliminary Blood NEGATIVE TO DATE 12/29/24 10:41 Blood Culture - Preliminary Blood NEGATIVE TO DATE A&P Assessment and plan 1. Small bowel obstruction: Plan: I think patient progression appears to be adequate, and initial amount of gas that he was able to evacuate most likely was retained gas in the colon and I think he just needs a bit more time until GI motility is completely restored. 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 He has good abdominal exam the abdomen is now nontender which is a significant improvement from previous examination especially before surgery. I have encouraged him to ambulate to continue walking down the [place] is much as he can as ambulation will stimulate GI motility. He shows understanding and agrees. We have discussed the possibility of a postoperative ileus and the need for decompression in case of that diagnosis and patient has explained to me that he does not plan to have an NG tube at any point in the future. Will have to talk about that again in the case that he develop his any nausea or vomiting. Other than that his vitals are stable his white count has remained stable laboratory workup appears normal. Appreciate primary team management I will continue to follow on a daily basis - Continue full liquid diet - Encourage ambulation - Pain control as needed - All other management per primary PDMP PDMP Reviewed: Not Reviewed Attestations 2 Medical Necessity Statement*: Per medical team Coding Level of Care Code Acute Code for Chg Fwd Diagnoses Small bowel obstruction K56.609
--- NOTE | 2024-12-31 15:43 | PM.MISC ---
Miscellaneous Note Purpose of Documentation: Update on Patient care Note: Doing well. Has had a small BM. will start him on 125mg of Erythromicin BID for motility. plan is for GI soft diet tomorrow and if tolerating he can transition home.
[2024-12-31] MEDS: pantoprazole 40 mg SDV IVP (23:34)
[2025-01-01 01:00] VITALS: BP 153/92; PULSE 54; RESP 16; TEMP 36.6; O2SAT 93
[2025-01-01] MEDS: HYDROmorphone 0.5 MG/0.5 ML INJ 2 MG IVP ×3 (01:23→11:52)
[2025-01-01 05:53] LABS: Hematocrit 37.4 % (37-53); Hemoglobin 12.30 g/dL (11.27-16.99); Mean Corpuscular HGB Conc 32.9 g/dL (30-55); Mean Corpuscular Hemoglobin 29.5 pg (27-33); Mean Corpuscular Volume 89.7 fl (82-101); Nucleated Red Blood Cells % 0 %; Platelet Count 269 10^3/cmm (157-399); Red Blood Count 4.17 10^6/uL (3.85-5.65); White Blood Count 9.59 10^3/uL (3.29-11.43)
[2025-01-01 06:00] VITALS: BP 153/92; BP 162/98; PULSE 76; RESP 17; TEMP 36.7; O2SAT 98
[2025-01-01 06:13] LABS: Alanine Aminotransferase 27 U/L (0-41); Albumin Level 3.6 g/dL (3.5-5.2); Alkaline Phosphatase 52 U/L (40-130); Anion Gap 14.2 (5-19); Aspartate Amino Transferase 15 U/L (0-40); Blood Urea Nitrogen 11 mg/dL (6-20); Calcium 8.4 mg/dL (8.5-10.5); Carbon Dioxide 26 mmol/L (22-29); Chloride 99 mmol/L (98-107); Creatinine Clr Calc Pharmacy 165.4725; Globulin 2.4 g/dL (1.3-4.6); Glucose 126 mg/dL (65-115); Osmolality Calculated 281 mOsm/kg (285-295); Potassium 4.2 mmol/L (3.5-5.1); Sodium 135 mmol/L (136-145); Total Protein 6.0 g/dL (6.6-8.7)
[2025-01-01 06:14] LABS: Magnesium 2.2 mg/dL (1.7-2.3)
--- NOTE | 2025-01-01 07:13 | P.PN_ITS ---
Subjective 2 Subjective: This is a 59-year-old male who is now postoperative day 4 status post exploratory laparotomy lysis of additions. He is doing very well had 2 bowel movements yesterday is passing consistent amount of gas tolerating diet. Vitals/I&O/Wt Last Vital Signs Temp 98.1 F 01/01/25 06:00 Pulse 76 01/01/25 06:00 Resp 17 01/01/25 06:00 BP 162/98 01/01/25 06:00 Pulse Ox 98 01/01/25 06:00 O2 Del Method Room Air 12/30/24 15:20 O2 Flow Rate 2 12/28/24 21:13 12/31/24 01/01/25 01/01/25 22:59 06:59 14:59 Intake Total 480 / 1065 740 / 1805 Balance 480 / 590 740 / 1330 Weight last 48 hrs Weight 245 lb Weight 245 lb Physical Exam 2 GI: OTHER: Benign abdominal exam the abdomen is soft it is distended but nontender and surgical incision is well-healed, Karla in place. Good bowel sounds Urinary Catheter Management: Aguirre: Cath Placed During This Visit: yes, but has since been removed by the nurse Reason for Continuing Indwelling Catheter: Decision to DC Catheter Urinary Catheter Date of Insertion: 12/28/24 Urinary Catheter Time of Insertion: 14:46 Date Urinary Catheter Removed: 12/30/24 Time Urinary Catheter Discontinued: 10:30 Data 01/01/25 05:33 01/01/25 05:33 A&P Assessment and plan 1. Small bowel obstruction: Plan: Patient has shown a very good progression over the last 24 hours. His vital signs are Unremarkable.His laboratory workup is normal, white count is now 9.5. Tolerated full liquid diet yesterday after he was initiated on bisacodyl he was able to have 2 small bowel movements and he has been consistently passing gas. We will allow him to have GI soft diet if he is tolerating (no nausea or vomiting) he transition to the outpatient setting. Warning signs have been given. Patient shows understanding he agrees with the plan, additional management as well as chronic pain medication management per primary team. -GI soft diet today -Continue bowel regimen -Continue ambulation -Once tolerating GI soft diet patient is cleared for discharge from the general surgery standpoint, discharge instructions have been documented in the discharge tab PDMP PDMP Reviewed: Not Reviewed Attestations 2 Medical Necessity Statement*: Per medical team Coding Level of Care Code Acute Code for Chg Fwd Diagnoses Small bowel obstruction K56.609
[2025-01-01 07:22] VITALS: BP 160/92; PULSE 57; RESP 16; TEMP 36.4; O2SAT 94
[2025-01-01] MEDS: meropenem 1,000 mg SDV 1000 MG IVP (08:30)
--- NOTE | 2025-01-01 08:53 | PC.SOCIAL ---
IMM Updated Updated pt on IMM. No questions voiced. Provided pt a copy. Initialed, dated, & timed copy in chart.
[2025-01-01 11:41] VITALS: BP 154/81; PULSE 65; RESP 16; TEMP 36.7; O2SAT 97
[2025-01-01 13:59] VITALS: BP 154/81; PULSE 65; RESP 16; TEMP 36.7; O2SAT 97
--- NOTE | 2025-01-01 20:19 | P.DS_ITS ---
Discharge Providers Date of Admission: 12/23/24 20:13 Date of Discharge: January 01, 2025 Attending Provider at Admission: Farrah Smith MD Attending Provider at Discharge: Farrah Smith MD Primary Care Provider: Alec Gabriel MD Diagnoses at Discharge Discharge Diagnosis 1. Small bowel obstruction: Reason for Visit Reason for Visit: AB PAIN Brief History: as per the retrospect chart review and the patient: Ben Nielsen is a 59 year old male with past medical history of chronic pain syndrome secondary to multiple spinal surgery after a traumatic fall 9 to 10 years ago. 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 And further complication of the wounds of the surgery with MRSA infection. The patient also underwent multiple abdominal surgeries with history of ruptured appendix and s/p appendectomy, s/p cholecystectomy s/p hernia repair and has been on high dose of opioids with further frequent ER visits for bowel obstruction. The patient was doing well until 2 to 3 days when he noticed with his home regimen of multiple laxatives th e patient was unable to pass bowels. However with straining he was able to pass hard stools 1-2 times. There was no fever, chills, any diarrhea before this episode. He also started to have abdominal distention and pain with further complicating into nausea and vomiting. The patient feels bloated and GERD-like symptoms. He did not report any chest pain chest pressure diaphoresis or any cardiac symptoms. There was no orthopnea or PND. Patient has chronic lower leg edema but did not report any increase in swelling. Rest of the review of system was unremarkable Of note: The patient is following with the pain doctor and he mentioned his pain 1 year or so he has been switched from Dilaudid to morphine. Since the use of morphine his bowel motions has decreased which never happened with Dilaudid. Hospital Course Hospital Course the patient was admitted with small bowel obstruction and kept on NGT suction with bowel rest. later on the patient underwent ex lap and adhsenolysis of intestines from previous surgeries leading to bowel obstruction. further conservative management with NGT and early mobilization, laxatives and adequate pain control with dilaudid helped the patient. the patient avoided morphine as it has caused him more constipation and not much improvement in his pain therefore, he had a better response with dilaudid. his hospital course was uncomplicated. The patient was kept on meropenem to cover any intra-abdominal source of infection. Blood cultures remained negative. The patient was kept on clear fluids diet with further advancement to GI soft and early mobilization the patient improved significantly with passing of gas and flatus during his hospital stay. Labs were monitored and corrected accordingly All imaging studies and cultures were reviewed. The patient was discharged on Augmentin for another few days course. Laxatives provided on scheduled basis since the patient will be having slow transit of bowel motion based on his high requirement of opioids for cervical spinal pain. The patient further reported better results with Dilaudid for his pain and also not affecting his bowel motion in comparison to morphine which does not affect much his pain and also leads to constipation and decreased bowel motion. Patient condition has been discussed at length with the patient/family, I have independently reviewed the chart labs imaging/diagnostics/EKG. the goals of care and code status with the patient/family/NOK/legal in store marketing representative, and documented accordingly. The patient/family has been informed about the current condition and further plan of care. Agreed with the plan of care and understood without any language barrier. Every effort was made to ensure accuracy of military nurse. Any obvious errors or omissions should be clarified with the author of the document. Physical Exam Narrative: General: Alert and oriented, lying comfortably on the bed at room air without any distress HEENT: Normocephalic, atraumatic, grossly unremarkable exam Cardio: normal rate rhythm, normal S1-S2 without any murmurs, rubs, or gallops and JVD normal Respiratory: normal vascular breathing on auscultation without any wheezes, stridor, rhonchi GI: Abdomen soft and mildly distended without any tenderness, patient s/p surgery and on abdominal binder for support, Neuro: intact cranial nerves motor and sensory and cerebellar/coordination function without any focal neurological deficit Behavior: Appropriate and cooperative Extremities: Adequate palpable pulses, Urinary Catheter Management: Aguirre: Cath Placed During This Visit: yes, but has since been removed by the nurse Reason for Continuing Indwelling Catheter: Decision to DC Catheter Urinary Catheter Date of Insertion: 12/28/24 Urinary Catheter Time of Insertion: 14:46 Date Urinary Catheter Removed: 12/30/24 Time Urinary Catheter Discontinued: 10:30 Discharge Data Studies Completed and Pending Completed Studies During Hospitalization Category Date Time Status CT abdomen pelvis w con* [id number] Routine Cat Scan 12/28/24 08:[address] abdomen pelvis w con* [id number] Stat Cat Scan 12/23/24 17:05 Completed CXRP [XR chest 1V portable [id number]] Routine Exams 12/24/24 06:56 Completed XR abdomen 1V* [id number] Routine Exams 12/26/24 12:09 Completed XR abdomen 1V* [id number] Stat Exams 12/26/24 06:11 Completed XR abdomen 1V* [id number] Stat Exams 12/27/24 07:10 Completed XR chest 1V portable [id number] Stat Exams 12/23/24 21:40 Completed Pending at discharge Category Date Time Status Blood Culture Stat Lab 12/29/24 10:41 Results Radiology Impressions Chest X-Ray 12/24/24 06:56 IMPRESSION: Stable chest as above. Abdomen X-Ray 12/27/24 07:10 IMPRESSION: 1. Contrast is seen in the colon and rectum, which excludes a complete bowel obstruction. 2. Moderately dilated small bowel loops again seen measuring up to 4.5 cm, probably related to partial obstruction. Abdomen/Pelvis CT 12/28/24 08:38 IMPRESSION: 1. Similar-appearing partial small bowel obstruction with improved dilatation of the stomach and slightly progressed fluid-filled dilatation of some small bowel loops in the pelvis. 2. Similar area of transition in the RIGHT mid abdomen suspicious for adhesions. See bookmarked images. 3. Persistent air and fluid in the colon. Contrast extends to the rectum. 4. No other significant changes. Laboratory Results WBC 9.59 10^3/uL (3.29-11.43) 01/01/25 05:33 RBC 4.17 10^6/uL (3.85-5.65) 01/01/25 05:33 Hgb 12.30 g/dL (11.27-16.99) 01/01/25 05:33 Hct 37.4 % (37-53) 01/01/25 05:33 MCV 89.7 fl (82-101) 01/01/25 05:33 MCH 29.5 pg (27-33) 01/01/25 05:33 MCHC 32.9 g/dL (30-55) 01/01/25 05:33 RDW 13.1 % (12.1-15.1) 01/01/25 05:33 Plt Count 269 10^3/cmm (157-399) 01/01/25 05:33 MPV 10.7 fL (7.4-10.4) H 01/01/25 05:33 Neut % (Auto) 58.1 % 01/01/25 05:33 Lymph % (Auto) 23.7 % 01/01/25 05:33 [place] % (Auto) 10.5 % 01/01/25 05:33 Eos % (Auto) 6.5 % 01/01/25 05:33 Baso % (Auto) 0.5 % 01/01/25 05:33 Neut # (Auto) 5.57 10^3/uL (1.8-7.7) 01/01/25 05:33 Lymph # (Auto) 2.3 10^3/uL (0.8-4.8) 01/01/25 05:33 [place] # (Auto) 1.0 10^3/uL (0.2-0.9) H 01/01/25 05:33 Eos # (Auto) 0.6 10^3/uL (0.0-0.8) 01/01/25 05:33 Baso # (Auto) 0.1 10^3/uL (0.0-0.1) 01/01/25 05:33 Nucleated RBC % (auto) 0 % 01/01/25 05:33 Nucleated RBCs # 0.0 /100WBC 01/01/25 05:33 Sodium 135 mmol/L (136-145) L 01/01/25 05:33 Potassium 4.2 mmol/L (3.5-5.1) 01/01/25 05:33 Chloride 99 mmol/L (98-107) 01/01/25 05:33 Carbon Dioxide 26 mmol/L (22-29) 01/01/25 05:33 Anion Gap 14.2 (5-19) 01/01/25 05:33 BUN 11 mg/dL (6-20) 01/01/25 05:33 Creatinine 0.6 mg/dL (0.7-1.2) L 01/01/25 05:33 GFR Calculation 137.9 mL/min (90-130) H 01/01/25 05:33 Glucose 126 mg/dL (65-115) H 01/01/25 05:33 Calculated Osmolality 281 mOsm/kg (285-295) L 01/01/25 05:33 Lactic Acid 2.1 mmol/L (0.5-2.2) 12/23/24 17:27 Lactic Acid (Sepsis) 1.7 mmol/L (0.5-2.2) 12/23/24 20:03 Lactate 2.0 mmol/L (0.5-2.2) 12/29/24 04:47 Calcium 8.4 mg/dL (8.5-10.5) L 01/01/25 05:33 Phosphorus 4.0 mg/dL (2.5-4.5) 01/01/25 05:33 Magnesium 2.2 mg/dL (1.7-2.3) 01/01/25 05:33 Total Bilirubin 0.3 mg/dL (0.15-1.2) 01/01/25 05:33 AST 15 U/L (0-40) 01/01/25 05:33 ALT 27 U/L (0-41) 01/01/25 05:33 Alkaline Phosphatase 52 U/L (40-130) 01/01/25 05:33 Total Protein 6.0 g/dL (6.6-8.7) L 01/01/25 05:33 Albumin 3.6 g/dL (3.5-5.2) 01/01/25 05:33 Globulin 2.4 g/dL (1.3-4.6) 01/01/25 05:33 Lipase 14 U/L (13-60) 12/23/24 17:27 TSH 5.60 uIU/mL (0.27-4.20) H 12/23/24 17:27 Free T4 1.36 ng/dL (0.82-1.77) 12/30/24 04:53 Free T3 2.1 PG/ML (2.0-4.4) 12/30/24 04:53 Urine Color Yellow (Yellow) 12/23/24 17:18 Urine Appearance Clear (CLEAR) 12/23/24 17:18 Urine pH 5.5 (5-7) 12/23/24 17:18 Ur Specific [place] 1.012 (1.005-1.030) 12/23/24 17:18 Urine Protein Negative (Negative) 12/23/24 17:18 Urine Glucose (UA) Negative (Normal) 12/23/24 17:18 Urine Ketones Negative (Negative) 12/23/24 17:18 Urine Blood Negative (Negative) 12/23/24 17:18 Urine Nitrate Negative (Negative) 12/23/24 17:18 Urine Bilirubin Negative (Negative) 12/23/24 17:18 Urine Urobilinogen 0.2 mg/dL (Negative) 12/23/24 17:18 Ur Leukocyte Esterase Negative (Negative) 12/23/24 17:18 Urine RBC 0-2 /hpf (0-2) 12/23/24 17:18 Urine WBC 0-5 /hpf (0-5) 12/23/24 17:18 Ur Squamous Epith Cells 0-5 /hpf (0-5) 12/23/24 17:18 Amorphous Sediment Not Reportable 12/23/24 17:18 Urine Bacteria None seen /hpf (NONE) 12/23/24 17:18 Hyaline Casts 0-4 /lpf H 12/23/24 17:18 Nasal MRSA (PCR) Not detected (Negative) 12/24/24 00:50 Vitals Last Vital Signs Temp 98.1 F 01/01/25 13:59 Pulse 65 01/01/25 13:59 Resp 16 01/01/25 13:59 BP 154/81 01/01/25 13:59 Pulse Ox 97 01/01/25 13:59 O2 Del Method Room Air 01/01/25 11:41 O2 Flow Rate 2 12/28/24 21:13 Discharge Plan Discharge Patient Disposition: Home Condition: Stable Prescriptions: New sennosides [senna] 8.6 mg Tablet 17.2 mg PO TID 60 Days Qty: 360 0RF magnesium hydroxide [Milk of Magnesia] 400 mg/5 mL Suspension 30 ml PO BID 60 Days Qty: 3600 0RF docusate sodium 100 mg Capsule 100 mg PO BID 60 Days Qty: 120 0RF amoxicillin-pot clavulanate [Augmentin] 500-125 mg tablet 1 tab PO Q8H Qty: 7 0RF Continued (DME) CPAP supplies See Rx Instructions .Route .MEDSUPPLY Qty: 1 0RF Rx Instructions: Mask, tubing, filters. naloxone [Narcan] 4 mg/actuation spray,non-aerosol 4 mg intranasal Q2M PRN (Reason: opioid overdose) Qty: 2 3RF Rx Instructions: spray 1 dose into 1 nostril alternate nostrils w ea dose until help arrives morphine 15 mg tablet extended release 15 mg PO BID morphine 15 mg tablet 15 mg PO BID bisacodyl 5 mg tablet 15 mg PO DAILY PRN (Reason: constipation) clonidine HCl 0.1 mg tablet 0.1 mg PO BID PRN (Reason: agitation) Qty: 60 3RF Rx Instructions: May take one tablet twice per day as needed for agitation ondansetron 4 mg tablet,disintegrating 4 mg PO Q8H PRN (Reason: nausea and vomiting) Qty: 10 0RF triamcinolone acetonide 0.1 % ointment 1 applic topical BID PRN (Reason: psoriasis) 14 Days Qty: 30 2RF (DME) back brace [Back Support S/M] Misc See Rx Instructions .Route Qty: 1 0RF Rx Instructions: As directed (DME) back brace Misc See Rx Instructions .ROUTE .MEDSUPPLY Qty: 1 0RF Rx Instructions: As directed (DME) AUTO - TITRATING CPAP 6-10CM See Rx Instructions .Route .MEDSUPPLY Qty: 1 0RF Rx Instructions: As directed pantoprazole 40 mg tablet,delayed release (DR/EC) 40 mg PO DAILY Qty: 90 1RF tizanidine 4 mg tablet 8 mg PO TID 30 Days Qty: 180 1RF duloxetine 40 mg capsule,delayed release(DR/EC) 40 mg PO .morning Qty: 30 3RF Rx Instructions: Take one capsule every morning tamsulosin 0.4 mg Capsule 0.4 mg PO DAILY Qty: 30 0RF melatonin 10 mg Tablet 10 mg PO BEDTIME lactulose 10 gram/15 mL solution 15 ml PO TID PRN (Reason: Constipation) quetiapine [Seroquel] 50 mg tablet 50 - 150 mg PO BEDTIME PRN (Reason: insomnia) Rx Instructions: May take one to two tablets at bedtime as needed for sleep, may take one tablet within one hour if not asleep nitroglycerin [Nitrostat] 0.4 mg Tablet, Sublingual 0.4 mg SUBLINGUAL Q5M PRN (Reason: Chest Pain) Rx Instructions: do not exceed 3 doses per episode losartan 50 mg tablet 50 mg PO DAILY Changed amlodipine 2.5 mg tablet 5 mg PO DAILY 90 Days Qty: 90 1RF No Action (DME) rollaid walker with chair See Rx Instructions .Route .MEDSUPPLY Qty: 1 0RF Rx Instructions: As directed [place] [employer] [place] for DC: Surgery Discharge Order = DC NOW: Discharge Order (Routine); Ordered 01/01/25 Ordered By: Farrah Smith Referrals: Caleb Fontaine MD [Physician, General Surgery] Referral Note: 2 weeks We have notified your physician's clinic of the need for a follow-up appointment to be scheduled. If you have not heard from them within the next 2 business days, please call them directly. Alec Gabriel MD [Primary Care Provider, Family Practice] - 4-7 days Referral Note: We have notified your physician's clinic of the need for a follow-up appointment to be scheduled. If you have not heard from them within the next 2 business days, please call them directly. Discharge Diet: Low Fat, GI Soft and Soft Mechanical Discharge Activity: Resume usual activity, Increase activity as tolerated and Limit activity as instructed Patient Instructions: Bowel Obstruction, Amoxicillin (By mouth), Laxative, Stool Softeners (By mouth), Senna (By mouth), Acute Wound Care (DC), GI (Gastrointestinal) Soft Diet (DC), Opioid Safety, Post Anesthesia Care, Patient Portal & Vicki Instructions Activity Restrictions/Additional Instructions: General Surgery Instructions: - No heavy lifting for 6 weeks. walk as much as possible as this will speed up your recovery. continue on a GI soft diet until we meet in clinic. - You can let soap and water over your wound and pat dry starting tomorrow. -keep your abdominal binder any time you are out of bed -continue bowel regimen, please follow up with pain specialist to discuss modifications to your current regimen. Discharge Attestations Time Spent in Discharge Care*: greater than 30 min Specific Discharge Activities: educating patient, educating and/or supporting family/caregiver, discussing with pcp/other providers, discussing with correctional case manager/social workers/dc planners, documenting/other paperwork and evaluating patient/reviewing data Status at Discharge: Cognitive status at discharge: cognitively intact , Behavioral status at discharge: cooperative , Functional status at discharge: independent ambulation , Overall status at discharge: patient is progressing back to baseline Quality Metrics Clinical Quality Measures [ No reported AMI, CVA or VTE this stay] Coding Level of Care Code 16960 Diagnoses Small bowel obstruction K56.609
== END 2025-01-01 14:00 | disposition home or self-care (01) | DRG 336 ==
LOC: ER 20:06 → MEDSURG 20:27
PROVIDERS: Student in an Organized Health Care Education/Training Program; Surgery; Admitting Provider Student in an Organized Health Care Education/Training Program; Emergency Provider Student in an Organized Health Care Education/Training Program; PCP Family Medicine; Visit Provider Student in an Organized Health Care Education/Training Program
PROC: 0DNU4ZZ Release Omentum, Percutaneous Endoscopic Approach (ICD-10-PCS; CPT 49320; principal; 2024-12-28 16:00)
PROC: 0DNU4ZZ Release Omentum, Percutaneous Endoscopic Approach (ICD-10-PCS; CPT 49000; 2024-12-28 16:00)
PROC: 0DNU4ZZ Release Omentum, Percutaneous Endoscopic Approach (ICD-10-PCS; 2024-12-28 16:00)
DX: K56.50 Intestinal adhesions [bands], unspecified as to partial versus complete obstruction (principal); F33.1 Major depressive disorder, recurrent, moderate; I69.354 Hemiplegia and hemiparesis following cerebral infarction affecting left non-dominant side; I50.32 Chronic diastolic (congestive) heart failure; G89.4 Chronic pain syndrome; F41.1 Generalized anxiety disorder; E78.5 Hyperlipidemia, unspecified; F44.4 Conversion disorder with motor symptom or deficit; G47.33 Obstructive sleep apnea (adult) (pediatric); E83.39 Other disorders of phosphorus metabolism; I11.0 Hypertensive heart disease with heart failure; M48.062 Spinal stenosis, lumbar region with neurogenic claudication; Z86.14 Personal history of Methicillin resistant Staphylococcus aureus infection; Z79.899 Other long term (current) drug therapy; Z79.891 Long term (current) use of opiate analgesic; Z88.5 Allergy status to narcotic agent; Z88.8 Allergy status to other drugs, medicaments and biological substances; Z91.018 Allergy to other foods; Z86.16 Personal history of COVID-19; Z86.0100 Personal history of colon polyps, unspecified; I25.2 Old myocardial infarction; Z90.49 Acquired absence of other specified parts of digestive tract; Z87.891 Personal history of nicotine dependence; Z53.31 Laparoscopic surgical procedure converted to open procedure
CPT/HCPCS: 36415; 51702; 71045; 74018; 74177; 80048; 80053; 81001; 83605; 83690; 83735; 84100; 84439; 84443; 84481; 85025; 87040; 96372; 96374; 99285; J0131; J0360; J1171; J1644; J1885; J2060; J2185; J2250; J2270; J2405; J2470; J2543; J2704; J3010; J3372; J3490; J7030; J7120; J9999; P9045; Q9963

== ENCOUNTER → 2025-01-18 09:08 | Outpatient (BNVA) | payer MEDICARE, SELFPAY | PROVIDERS: PCP Family Medicine; Visit Provider Surgery | DX: K56.609 Unspecified intestinal obstruction, unspecified as to partial versus complete obstruction (principal) | CPT/HCPCS: 99213 ==

== ENCOUNTER → 2025-01-28 14:40 | Outpatient (BNVA) | payer MEDICARE, SELFPAY | PROVIDERS: PCP Family Medicine; Visit Provider Family Medicine | DX: R61 Generalized hyperhidrosis (principal) | CPT/HCPCS: 82533; 84439; 84443 ==

== ENCOUNTER → 2025-02-02 09:57 | Outpatient (BNVA) | payer MEDICARE, SELFPAY | PROVIDERS: PCP Family Medicine; Visit Provider Surgery | DX: K56.609 Unspecified intestinal obstruction, unspecified as to partial versus complete obstruction (principal); Z98.890 Other specified postprocedural states | CPT/HCPCS: 99024 ==